=== PATIENT | male | born 1955 | race Caucasian/White ===

== ENCOUNTER → 2017-08-02 09:50 | Outpatient (CLI) | payer OTHER, SELFPAY ==
[2017-08-02 10:31] LABS: Hemoglobin A1c 9.6 % (4.2-6.3)
[2017-08-02 10:40] LABS: ALB/GLOB Ratio 0.8 RATIO (0.9-2.4); AST(SGOT) 20 U/L (15-37); Alanine Aminotransfer ALT/SGPT 24 U/L (16-61); Albumin, Serum 3.5 g/dL (3.2-5.0); Alkaline Phosphatase 209 U/L (45-117); Anion Gap 8 (5-15); BUN 37 mg/dL (7-18); BUN/Creat Ratio 27.4 RATIO (10-20); Calcium,Total 8.3 mg/dL (8.5-10.1); Chloride 104 mmol/L (98-107); Creatinine, Serum 1.35 mg/dL (0.70-1.30); EST Glomerular Filtration Rate 57 mL/min (>60); Est Glom Filt Rate - Afr Amer 69 mL/min (>60); Globulin 4.3 g/dL (2.2-4.2); Glucose 296 mg/dL (74-106); Potassium 4.5 mmol/L (3.5-5.1); Protein, Total 7.8 g/dL (6.4-8.2); Sodium Level 137 mmol/L (136-145); Thyroid Stim Hormone (TSH) 1.72 uIU/mL (0.358-3.74)
[2017-08-03 14:14] LABS: C-Peptide 6.2 ng/mL (1.1-4.4)
== END ==
PROVIDERS: Visit Provider Internal Medicine Endocrinology, Diabetes & Metabolism
DX: E11.65 Type 2 diabetes mellitus with hyperglycemia (principal)
CPT/HCPCS: 36415; 80053; 83036; 84443; 84681

== ENCOUNTER 2017-10-01 07:14 | Emergency (ER) | payer OTHER, SELFPAY ==
[2017-10-01 07:15] VITALS: BP 149/80; PULSE 99; RESP 15; TEMP 37.4; O2SAT 98; BMI 35.4
--- NOTE | 2017-10-01 07:37 | EKG12_ITS ---
Test Reason : WEAKNESS Blood Pressure : / mmHG Vent. Rate : 101 BPM Atrial Rate : 101 BPM P-R Int : 194 ms QRS Dur : 108 ms QT Int : 348 ms P-R-T Axes : 041 -01 033 degrees QTc Int : 451 ms Sinus tachycardia Otherwise normal ECG Confirmed by VANESSA CASILLAS, ROYAL ([id number]), editor map SRIRAM JALLOH ([id number]) on 10/05/2017 2:08:23 PM Referred By: ANTOLIN Confirmed By:ROYAL MENDEZ MD
--- NOTE | 2017-10-01 07:39 | ED.VISSUMM ---
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 He works in a warm environment. He noticed that he was drinking a lot of fluids but not sweating very much, and he was concerned that he was getting dehydrated. He felt a little bit weak and dizzy. He has some nasal congestion and it was causing him to feel short of breath. He went to the fire department this morning to be evaluated and his blood pressure was found to be 198/93. He has a history of stroke, coronary disease, diabetes, hypertension, hyperlipidemia, et al. He had similar symptoms in the past with dehydration and so he came to get his kidneys checked and for fluids. None of this feels like his prior [place] and he has not been having any stroke symptoms. He has no history of lung disease, PE, or aortic disease. Physical Examination: Blood pressure 149/80 and heart rate 99. Temperature 99.4. Otherwise vitals unremarkable. Patient is sitting comfortably and appears in no acute distress. Cooperative and appropriate. HEENT exam shows normal inspection. Lungs are clear. Heart regular. No edema noted. Calves soft and supple. Abdomen soft. Skin appears normal without diaphoresis or pallor. Test Results: EKG, labs, and chest x-ray pending. Emergency Department Course and Treatment: Patient may be slightly dry or dehydrated. He is also having some nasal congestion and may be coming down with something like a viral illness. He is not having any cardiac or stroke symptoms. Nothing to make me suggest PE, pneumothorax, pneumonia or, or other significant cardiovascular or pulmonary pathologies. He was treated with fluids while awaiting results. Will reassess. Patient continued to complain of shortness of breath. I spoke with him again about this. His shortness of breath is secondary to nasal congestion. He does not have shortness of breath when he breathes through his mouth. No exertional components. No chest pain. His workup was fairly unremarkable. His hemoglobin and platelets are 11.8 and 142 respectively, similar to previous. His BUN is 44, creatinine 1.63, and glucose 309. His creatinine has been as high as 5 in the past. His BUN has been as high as 56. Chest x-ray unremarkable. EKG unremarkable. Troponin normal. Patient received Afrin for his nasal congestion. He had further fluid resuscitation. He will be discharged to follow-up with his doctor as an outpatient. Call 911 for any chest pain, shortness of breath not related to nasal congestion, swelling, high fevers, or any other new or worsening issues. Treatment Plan: As above Disposition: Discharged Impression: 1. Dehydration 2. Nasal congestion This note was generated with [employer] dictation software. It may contain incorrect words, spelling, and punctuation that were not noted in review of the chart prior to signing ED Disposition - Plan for ED Patient: Chief Complaint: Weakness Referrals: Gene Louis MD [Primary Care Provider] -
[2017-10-01] MEDS: 0.9% Normal Saline 1,000 ML 1000 ML IV ×2 (07:43→08:32)
--- NOTE | 2017-10-01 07:43 | RAD_ITS ---
STUDY: X-RAY CHEST REASON FOR EXAM: Male, 62 years old. Dyspnea. Weakness. TECHNIQUE: Single AP portable view of the chest. COMPARISON: Comparison is made with prior study dated July 14, 2016. FINDINGS: EKG electrodes are seen. The lungs are clear and expanded. There is no demonstrated pleural abnormality. Normal size heart. Normal mediastinum and lydia. Normal visualized pulmonary arteries. There is atherosclerotic tortuosity of the aortic arch and descending thoracic aorta. There are diffuse degenerative changes of the visualized thoracic spine. Normal visualized ribs, clavicles, and shoulders. There is no demonstrated abnormality of the visualized soft tissue structures of the upper abdomen. RAD/Chest 1 View (Portable) IMPRESSION: No acute abnormality is present. Electronically Signed: Rigo Liriano MD at 8:06 EDT Tel [phone], Service support ,
--- NOTE | 2017-10-01 07:43 | ED.DCSUM_ITS ---
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 He works in a warm environment. He noticed that he was drinking a lot of fluids but not sweating very much, and he was concerned that he was getting dehydrated. He felt a little bit weak and dizzy. He has some nasal congestion and it was causing him to feel short of breath. He went to the fire department this morning to be evaluated and his blood pressure was found to be 198/93. He has a history of stroke, coronary disease, diabetes, hypertension, hyperlipidemia, et al. He had similar symptoms in the past with dehydration and so he came to get his kidneys checked and for fluids. None of this feels like his prior [place] and he has not been having any stroke symptoms. He has no history of lung disease, PE, or aortic disease. Physical Examination: Blood pressure 149/80 and heart rate 99. Temperature 99.4. Otherwise vitals unremarkable. Patient is sitting comfortably and appears in no acute distress. Cooperative and appropriate. HEENT exam shows normal inspection. Lungs are clear. Heart regular. No edema noted. Calves soft and supple. Abdomen soft. Skin appears normal without diaphoresis or pallor. Test Results: EKG, labs, and chest x-ray pending. Emergency Department Course and Treatment: Patient may be slightly dry or dehydrated. He is also having some nasal congestion and may be coming down with something like a viral illness. He is not having any cardiac or stroke symptoms. Nothing to make me suggest PE, pneumothorax, pneumonia or, or other significant cardiovascular or pulmonary pathologies. He was treated with fluids while awaiting results. Will reassess. Patient continued to complain of shortness of breath. I spoke with him again about this. His shortness of breath is secondary to nasal congestion. He does not have shortness of breath when he breathes through his mouth. No exertional components. No chest pain. His workup was fairly unremarkable. His hemoglobin and platelets are 11.8 and 142 respectively, similar to previous. His BUN is 44, creatinine 1.63, and glucose 309. His creatinine has been as high as 5 in the past. His BUN has been as high as 56. Chest x-ray unremarkable. EKG unremarkable. Troponin normal. Patient received Afrin for his nasal congestion. He had further fluid resuscitation. He will be discharged to follow-up with his doctor as an outpatient. Call 911 for any chest pain, shortness of breath not related to nasal congestion, swelling, high fevers, or any other new or worsening issues. Treatment Plan: As above Disposition: Discharged Impression: 1. Dehydration 2. Nasal congestion This note was generated with [employer] dictation software. It may contain incorrect words, spelling, and punctuation that were not noted in review of the chart prior to signing ED Disposition - Plan for ED Patient: Chief Complaint: Weakness Referrals: Gene Louis MD [Primary Care Provider] -
[2017-10-01 07:47] LABS: Absolute Lymphocyte Count 0.73 X10^3/ul (0.83-4.51); Absolute Neutrophil Count 6.5 X10^3/uL (2.0-7.7); Basophil# 0.03 X10^3/uL; Basophil% 0.4 % (0-1); Eosinophil# 0.12 X10^3/uL; Eosinophils% 1.5 % (0-5); Hematocrit 34.3 % (40-54); Hemoglobin 11.8 g/dl (13.0-16.5); Lymphocyte # 0.73 X10^3/ul (4.0); Mean Corp Hgb Conc 34.4 g/gl (32-36); Mean Corpuscular Volume 78.5 fL (80-94); Mean Platelet Vol. 11.4 fl (6.2-12.0); Monocyte# 0.69 X10^3/uL; Monocyte% 8.5 % (0-10); Neutrophil # 6.51 X10^3/uL (2.7-7.7); Neutrophil % 80.4 % (47-70); Platelet Count 142 K/mm3 (150-450); RBC Distribution Width CV 13.9 % (11.6-14.6); RBC Distribution Width SD 38.6 fl (35.1-43.9); Red Blood Count 4.37 M/mm3 (4.6-6.2); White Blood Count 8.1 K/mm3 (4.4-11.0)
[2017-10-01 07:49] LABS: POSITIVE COUNT NO; POSITIVE DIFFERENTIAL NO; POSITIVE MORPHOLOGY NO
[2017-10-01 07:58] LABS: Anion Gap 9 (5-15); BUN 44 mg/dL (7-18); Calcium,Total 8.6 mg/dL (8.5-10.1); Chloride 105 mmol/L (98-107); Creatinine, Serum 1.63 mg/dL (0.70-1.30); EST Glomerular Filtration Rate 46 mL/min (>60); Est Glom Filt Rate - Afr Amer 55 mL/min (>60); Estimated Creatinine Clearance 45.46 ml/min; Glucose 309 mg/dL (74-106); Potassium 4.5 mmol/L (3.5-5.1); Sodium Level 135 mmol/L (136-145)
--- NOTE | 2017-10-01 08:29 | ED.DEP ---
ED Disposition - Plan for ED Patient: Chief Complaint: Weakness Instructions: ED Dehydration Referrals: Gene Louis MD [Primary Care Provider] - As soon as possible
[2017-10-01] MEDS: Oxymetazoline 0.05% 1 SPRAY SPRAY.BTL NASAL (08:32)
[2017-10-01 09:23] VITALS: BP 150/78; PULSE 98; RESP 17; O2SAT 98
== END 2017-10-01 09:24 | disposition home or self-care (01) ==
PROVIDERS: Emergency Provider Emergency Medicine; Family Provider Family Medicine; PCP Family Medicine
DX: E86.0 Dehydration (principal); R09.81 Nasal congestion; E11.9 Type 2 diabetes mellitus without complications; I25.10 Atherosclerotic heart disease of native coronary artery without angina pectoris; I10 Essential (primary) hypertension; E78.5 Hyperlipidemia, unspecified; I25.2 Old myocardial infarction; K21.9 Gastro-esophageal reflux disease without esophagitis; D61.818 Other pancytopenia; Z86.73 Personal history of transient ischemic attack (TIA), and cerebral infarction without residual deficits; Z87.891 Personal history of nicotine dependence; Z79.82 Long term (current) use of aspirin; Z79.4 Long term (current) use of insulin; Z79.899 Other long term (current) drug therapy
CPT/HCPCS: 71045; 80048; 84484; 85025; 93005; 96360; 96361; 99285; J7030

== ENCOUNTER → 2018-04-22 13:48 | Outpatient (CLI) | payer OTHER, SELFPAY ==
--- NOTE | 2018-04-22 13:51 | RAD_ITS ---
STUDY: X-RAY - LEFT KNEE REASON FOR EXAM: Male, 62 years old. Left knee pain following a fall. TECHNIQUE: 3 view(s) of the knee. COMPARISON: None. FINDINGS: Bony spur along the lateral femoral condyle. Deformity of the lateral tibial plateau most likely secondary to prior injury. Several small well-defined lucencies are seen in the proximal tibia most likely secondary to prior screw fixation. Normal proximal tibiofibular articulation. There is moderate degenerative arthrosis of the medial femorotibial compartment with moderate joint space narrowing. There is moderate degenerative arthrosis of the lateral femorotibial compartment with moderate joint space narrowing. There is severe degenerative arthrosis of the patellofemoral articulation. Small joint effusion. Vascular calcification. 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 RAD/Knee 3 Views IMPRESSION: Degenerative arthrosis. Small joint effusion. Electronically Signed: Rigo Liriano MD at 14:19 EST Tel [phone], Service support ,
--- NOTE | 2018-04-22 13:51 | RAD_ITS ---
STUDY: X-RAY - LEFT TIBIA AND FIBULA REASON FOR EXAM: Male, 62 years old. Leg pain following a fall. TECHNIQUE: 2 view(s) of the tibia and fibula were obtained. COMPARISON: None. FINDINGS: Findings suggest probable old injury along the lateral tibial plateau. Normal visualized fibula. There is non-specific soft tissue swelling. RAD/Tibia & Fibula 2 Views IMPRESSION: Nonspecific soft tissue swelling. Electronically Signed: Rigo Liriano MD at 14:20 EST Tel [phone], Service support ,
== END ==
PROVIDERS: Family Provider Family Medicine; PCP Family Medicine; Referring Provider Physician Assistant; Visit Provider Physician Assistant
DX: S80.02XA Contusion of left knee, initial encounter (principal); S80.12XA Contusion of left lower leg, initial encounter
CPT/HCPCS: 73562; 73590

== ENCOUNTER → 2018-04-24 09:54 | Outpatient (CLI) | payer OTHER, SELFPAY ==
[2018-04-24 07:56] VITALS: BMI 34.9
[2018-04-24 10:04] LABS: AST(SGOT) 18 U/L (15-37); Alanine Aminotransfer ALT/SGPT 29 U/L (16-61); Albumin, Serum 3.2 g/dL (3.2-5.0); Alkaline Phosphatase 246 U/L (45-117); Bilirubin, Direct 0.15 mg/dL (0.00-0.30); Cholesterol 104 mg/dL (200); Globulin 4.4 g/dL (2.2-4.2); High Density Lipoprotein 31 mg/dL; Protein, Total 7.6 g/dL (6.4-8.2); Triglycerides 208 mg/dL; Very Low Density Lipoprotein 42 mg/dL (5-40)
== END ==
PROVIDERS: Family Provider Family Medicine; PCP Family Medicine; Referring Provider Internal Medicine Cardiovascular Disease; Visit Provider Internal Medicine Cardiovascular Disease
DX: E78.00 Pure hypercholesterolemia, unspecified (principal)
CPT/HCPCS: 36415; 80061; 80076

== ENCOUNTER → 2018-05-24 06:24 | Outpatient (CLI) | payer OTHER, SELFPAY ==
[2018-05-15 10:06] VITALS: BMI 34.9
--- NOTE | 2018-05-24 06:27 | MRI_ITS ---
STUDY: MRI LEFT KNEE REASON FOR EXAM: Posterior knee pain, fall 2 months ago. TECHNIQUE: Standardized fat and water weighted pulse sequences were obtained in all 3 orthogonal planes. COMPARISON: Radiographs 04/22/2018. FINDINGS: There is a complex tear at the root of the posterior horn of the medial meniscus (proton-density sagittal images 15, 16; T2 coronal images 8, 9). There is arthrosis of the medial femorotibial compartment with marginal osteophytes of the medial femoral condyle, partial-thickness chondral loss of the medial femoral condyle (T2 sagittal image 6) and slight subchondral cystic change. There is a small ossification in the medial collateral ligament at the femoral origin (proton-density coronal image 16) from remote injury. Normal distal semimembranosus, gracilis and semitendinosus tendons. There is tear/degeneration of the anterior horn and anterior body of the lateral meniscus (proton-density sagittal images 28-35; proton density coronal images 14, 15). There is arthrosis of the lateral femorotibial compartment with marginal osteophytes and partial-thickness chondral loss (T2 sagittal image 18). There is chronic healed fracture deformity of the lateral tibial plateau with micrometallic artifact from previous hardware. There is arthrosis of the proximal tibiofibular articulation with chondral thinning (T2 coronal images 6-8). Normal lateral collateral (fibular) ligament. Normal popliteus tendon. Normal biceps femoris tendon. Normal anterior cruciate ligament (ACL). Normal posterior cruciate ligament (PCL). Normal congruent patellofemoral articulation. There is arthrosis of the patellofemoral compartment with marginal osteophytes, chondral thinning (T2 sagittal image 15) and subchondral cystic change of the lateral patellar facet. Normal medial and lateral patellar retinaculum. Normal visualized quadriceps tendon. Normal patellar tendon. Normal Hoffa's fat pad. There is a very small joint effusion. There are intra-articular bodies in the suprapatellar recess (T2 coronal images 24, 25), the largest measuring 0.8 cm in length. There is a small intra-articular body at the superior aspect of the posterior horn of the medial meniscus near the root (proton-density sagittal image 15). There is a small intra-articular body at the superior aspect of the posterior horn of the lateral meniscus (proton-density sagittal image 28). There is a thin medial patellar plica. There is mild edema in the subcutis adipose space. There is a small cyst in the lateral femoral condyle (T2 axial image 13). MRI/Lower Ext Joint Only (Routine) IMPRESSION: Medial meniscal tear. Lateral meniscal tear/degeneration. Tricompartmental arthrosis. Chronic healed fracture deformity of the lateral tibial plateau. Multiple intra-articular bodies. Small joint effusion. Electronically Signed: Edwin London MD at 9:16 EST Tel , Service support ,
== END ==
PROVIDERS: Family Provider Family Medicine; PCP Family Medicine; Referring Provider Physician Assistant; Visit Provider Physician Assistant
DX: S80.02XA Contusion of left knee, initial encounter (principal)
CPT/HCPCS: 73721

== ENCOUNTER 2018-07-09 08:11 | Day surgery (SDC) | payer OTHER, SELFPAY ==
[2018-07-04 08:22] VITALS: BMI 34.9
[2018-07-09] VITALS (7 sets, daily range): BP systolic 111–163; BP diastolic 72–86; PULSE 69–79; RESP 16–18; TEMP 36.5–36.9; O2SAT 96–100; BMI 35.6
[2018-07-09 09:11] LABS: Bedside Glucose 192 mg/dL (70-110)
[2018-07-09] MEDS: Cefazolin 2 GM in 0.9% Normal Saline 100 ML IV (09:57)
[2018-07-09] MEDS: Bupivacaine 0.5% PF 10 ML VIAL (10:52)
[2018-07-09] MEDS: Morphine 4 MG/ML Syringe (10:53)
[2018-07-09] MEDS: Bupiv/Epi 0.5% Mpf 30 ML Vial (10:53)
[2018-07-09 11:17] LABS: Bedside Glucose 188 mg/dL (70-110)
--- NOTE | 2018-07-09 11:17 | PCM.DC.ORTHO ---
Discharge Diet: No Restrictions Discharge Activity: Return to Normal Activity May shower in (days): 2 Keep extremity elevated above heart level: Operative Extremity Additional Activity Instructions:: Ice and elevate above the heart next 72 hours. Leave dressing on 48 hours then may remove and shower but no baths or pools or submersion for 3 weeks. Shower daily at this point with warm soapy water and pat dry and use Band-Aids as needed. Encourage full range of motion and weightbearing as tolerated. Avoid strenuous activity. Call your doctor if you observe: Fever of 101 or Higher, Shortness of breath, Chest pain Suture Line Care: Avoid Pulling/Pushing Allergies/Adverse Reactions: Allergies escitalopram [From Lexapro] Allergy (Verified 07/08/18 12:32) Unknown sertraline [From Zoloft] Allergy (Verified 07/08/18 12:32) Unknown lisinopril Adverse Reaction (Severe, Verified 07/08/18 12:07) Cough Medications to take at Discharge Nitroglycerin [Nitrostat] 0.4 mg SUBLINGUAL Q5M PRN 06/30/15 Insulin Degludec [Tresiba Flextouch U-200] 48 unit SQ DAILY 02/20/17 Insulin Lispro [Humalog KwikPen] 5 - 15 unit SQ TID PRN PRN 02/20/17 clopidogrel 75 mg tablet 75 mg PO DAILY #90 tab 07/18/17 metformin 500 mg tablet 1,000 mg PO DAILY tab 09/04/17 Bupropion HCl [Bupropion Xl] 150 mg PO DAILY 10/01/17 losartan 50 mg tablet 50 mg PO DAILY 04/24/18 Atorvastatin Calcium [Lipitor] 80 mg PO QHS 07/08/18 Carvedilol 12.5 mg PO BID 07/08/18 Pantoprazole Sodium [Protonix] 40 mg PO QDAY 07/08/18 Aspirin E.C. [Ecotrin] 81 mg PO DAILY #0 07/09/18 Hydrocodone/Acetaminophen [[place] 5-325 Tablet] 1 - 2 each PO Q4H PRN PRN 7 Days #50 tablet 07/09/18 The following prescriptions were given: Hydrocodone/Acetaminophen [[place] 5-325 Tablet] 1 - 2 each PO Q4H PRN PRN 7 Days #50 tablet PRN Reason: Pain Primary Care Physician: Gene Louis MD [Primary Care Provider] - Test Results: Test results from this visit will be discussed in further detail at your follow-up appointment, if applicable.
--- NOTE | 2018-07-09 11:21 | DCINST_ITS ---
Discharge Diet: No Restrictions Discharge Activity: Return to Normal Activity May shower in (days): 2 Keep extremity elevated above heart level: Operative Extremity Additional Activity Instructions:: Ice and elevate above the heart next 72 hours. Leave dressing on 48 hours then may remove and shower but no baths or pools or submersion for 3 weeks. Shower daily at this point with warm soapy water and pat dry and use Band-Aids as needed. Encourage full range of motion and weightbearing as tolerated. Avoid strenuous activity. Call your doctor if you observe: Fever of 101 or Higher, Shortness of breath, Chest pain Suture Line Care: Avoid Pulling/Pushing Allergies/Adverse Reactions: Allergies escitalopram [From Lexapro] Allergy (Verified 07/08/18 12:32) Unknown sertraline [From Zoloft] Allergy (Verified 07/08/18 12:32) Unknown lisinopril Adverse Reaction (Severe, Verified 07/08/18 12:07) Cough Medications to take at Discharge Nitroglycerin [Nitrostat] 0.4 mg SUBLINGUAL Q5M PRN 06/30/15 Insulin Degludec [Tresiba Flextouch U-200] 48 unit SQ DAILY 02/20/17 Insulin Lispro [Humalog KwikPen] 5 - 15 unit SQ TID PRN PRN 02/20/17 clopidogrel 75 mg tablet 75 mg PO DAILY #90 tab 07/18/17 metformin 500 mg tablet 1,000 mg PO DAILY tab 09/04/17 Bupropion HCl [Bupropion Xl] 150 mg PO DAILY 10/01/17 losartan 50 mg tablet 50 mg PO DAILY 04/24/18 Atorvastatin Calcium [Lipitor] 80 mg PO QHS 07/08/18 Carvedilol 12.5 mg PO BID 07/08/18 Pantoprazole Sodium [Protonix] 40 mg PO QDAY 07/08/18 Aspirin E.C. [Ecotrin] 81 mg PO DAILY #0 07/09/18 Hydrocodone/Acetaminophen [Goldvein 5-325 Tablet] 1 - 2 each PO Q4H PRN PRN 7 Days #50 tablet 07/09/18 The following prescriptions were given: Hydrocodone/Acetaminophen [Goldvein 5-325 Tablet] 1 - 2 each PO Q4H PRN PRN 7 Days #50 tablet PRN Reason: Pain Primary Care Physician: Gene Louis MD [Primary Care Provider] - Test Results: Test results from this visit will be discussed in further detail at your follow- up appointment, if applicable.
--- NOTE | 2018-07-09 11:46 | OP.PCM_ITS ---
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, patellofemoral and lateral compartment with a reas of grade 4, loose body, arthrofibrosis with thickened capsular and synovial tissue and adhesions Procedure: [Left knee arthroscopic partial medial and lateral meniscectomy ACL debridement removal of loose body chondroplasty tricompartment tricompartmental synovectomy lysis of adhesions and manipulation under anesthesia Anesthesia: General Estimated blood loss: 5 mL Tourniquet time: 53 minutes 300 mmHg Indication for procedure: This is a 62-year-old male patient who has had a prior large open surgical procedure in the year past to his knee he has had continued mechanical knee pain and stiffness and has failed conservative treatment he did have an MRI indicating medial and lateral meniscal tear and DJD and clinically he had a flexion contracture of about 25 degrees and unable to bend past 90. We did discuss arthroscopic surgery to attempt to alleviate some of his symptoms however significant risk of continued pain and stiffness due to the duration of contracture and level of arthritis, and only risk benefits and alternatives of the procedure were reviewed including risk of bleeding infection nerve artery tissue damage need for further surgery continued pain and expected postoperative course. Procedure: The patient was met in the preoperative holding area. The operative extremity was identified by both patient and physician and family and marked. Patient was brought back to the operating room on a wheeled cart and transferred to the operating table in the supine position. Anesthesia was started. A well-padded tourniquet was placed on the operative extremity. A lower extremity leg hearn was secured to the operative extremity. The contralateral extremity was well-padded and the end of the bed was flexed to 90 degrees. The patient was prepped and draped in the usual sterile fashion. A timeout was called to ensure the proper patient, procedure, and extremity were being contemplated. 0.5% Marcaine with epinephrine was injected into the planned incisional areas under the skin only. An Esmarch was used to exsanguinate the extremity and the tourniquet was inflated. An 11 blade scalpel was used to make a stab incision in the anterior lateral portal. The arthroscope was inserted into the intercondylar notch and inflow and outflow tubes were attached. Arthroscopic visualization began. The medial compartment was entered. An 18-gauge spinal needle was used to establish the placement for anterior medial portal. An 11 blade scalpel was used to make a stab incision. Blunt probe was inserted followed by a meniscal probe. There was significant capsular hypertrophy and synovial synovitis that required tricompartmental synovectomy for visualization with thickened bands rubbing on the medial and lateral condyles the ACL was nearly completely torn with scar tissue within the intercondylar notch this was debrided with a shaver. The lateral compartment was entered there was noted to be degenerative tearing in the posterior horn body and anterior horn of the lateral meniscus which was debrided with a shaver there was a loose body which was removed with a grasper there was loose cartilage on the medial and lateral femoral condyles and a chondroplasty was performed of the loose flaps with the use of arthroscopic biting instruments and maggie and ArthroCare wand a partial lateral meniscectomy was performed. The arthroscope was switched to the medial portal to complete the procedure. The medial and lateral gutters were inspected and were free of loose bodies. The patellofemoral joint was inspected and had significant grade III and IV chondromalacia. There was good patellar tracking. The knee was thoroughly irrigated and drained. Manipulation of the knee was then performed with a slight increase in his arc of motion however c omplete range of motion was not achieved, an intra-articular injection with 5 cc 0.5% Marcaine plain 4 mg of morphine was injected intra-articularly. The arthroscope was removed the portals were closed with 3-0 nylon arthroscopic stitches. Followed by Xeroform 4 x 4's ABDs web roll and an Eb wrap. The tourniquet was let down and the drapes were removed. All counts were correct. The patient was brought back to the PACU in stable condition. Type of Anesthesia:: General
[2018-07-09] MEDS: HYDROcodone Bitartrate/Apap 5/325 Tablet PO (12:12)
== END 2018-07-09 12:45 | disposition home or self-care (01) ==
LOC: SDC 08:12 → AC 08:13
PROVIDERS: Family Provider Family Medicine; PCP Family Medicine; Referring Provider Orthopaedic Surgery; Visit Provider Orthopaedic Surgery
PROC: (CPT 29870; principal; 2018-07-09 09:45)
DX: S83.282A Other tear of lateral meniscus, current injury, left knee, initial encounter (principal); S83.232A Complex tear of medial meniscus, current injury, left knee, initial encounter; M17.12 Unilateral primary osteoarthritis, left knee; M94.262 Chondromalacia, left knee; E66.9 Obesity, unspecified; I25.2 Old myocardial infarction; I10 Essential (primary) hypertension; I25.10 Atherosclerotic heart disease of native coronary artery without angina pectoris; E78.5 Hyperlipidemia, unspecified; K21.9 Gastro-esophageal reflux disease without esophagitis; G47.30 Sleep apnea, unspecified; E11.9 Type 2 diabetes mellitus without complications; Z87.891 Personal history of nicotine dependence; Z68.34 Body mass index [BMI] 34.0-34.9, adult; Z95.5 Presence of coronary angioplasty implant and graft; Z86.73 Personal history of transient ischemic attack (TIA), and cerebral infarction without residual deficits; Z79.4 Long term (current) use of insulin; Z79.82 Long term (current) use of aspirin; Z79.899 Other long term (current) drug therapy; X58.XXXA Exposure to other specified factors, initial encounter; Y93.89 Activity, other specified; Y92.89 Other specified places as the place of occurrence of the external cause; Y99.8 Other external cause status
CPT/HCPCS: 01400; 29880; 29884; G0289; 82962; J7120; J2405

== ENCOUNTER 2018-07-18 09:26 | Emergency (ER) | payer OTHER, SELFPAY ==
[2018-07-09 08:52] VITALS: BMI 35.6
[2018-07-18 09:27] VITALS: BP 175/88; PULSE 91; RESP 18; TEMP 36.6; O2SAT 96; BMI 34.2
--- NOTE | 2018-07-18 09:41 | VDLE_ITS ---
Reason For Study: swelling RIGHT LEFT CFV is compressible, spontaneous, phasic, GSV is normal. competent and demonstrates normal CFV is compressible, spontaneous, phasic, augmentation. competent, and demonstrates normal Procedure augmentation. Exam performed portable in ED. FV is compressible, spontaneous, phasic, The exam was diagnostic. competent and demonstrates normal A preliminary report was called and/or faxed augmentation. to Dr. Ramos. POP V is compressible, spontaneous, phasic, competent and demonstrates normal augmentation. T/P Trunk is compressible. PTV is compressible. LT PerV is compressible. Soleus V is dilated and noncompressible. Interpretation Summary Acute deep vein thrombosis is noted in the left soleus vein. The remainder of the left lower extremity deep venous system is patent and compressible. Valvular competence appears intact within the proximal deep venous system on the left . The left greater saphenous vein appears patent and compressible segmentally. Ordering Physician: Flash Ramos Performed By: Stas Rodríguez RVT
[2018-07-18] MEDS: HYDROcodone Bitartrate/Apap 5/325 Tablet PO (09:48)
--- NOTE | 2018-07-18 09:51 | ED.DCSUM_ITS ---
- ER Visit Summary Date of Service: 07/18/18 Chief Complaint: Left calf pain History of Present Illness: The patient is a 62 M who was referred to the ED for left calf pain. Patient is postop day 9 from a left knee scope for meniscus repair by Dr. Perez. Patient's knee pain has been improving since the surgery, but he is having increasing left calf pain associated with swelling. Denies any history of DVT or PE. He denies any history of chest pain, shortness of breath, cough, hemoptysis, or fever. Physical Examination: Afebrile and vital signs unremarkable except for hypertension. He does have some edema noted to his left calf and postoperative sites are noted to be clean, dry, and intact. Sutures are in place. He has some diffuse pain on palpation to his left calf. Good range of motion of his knee. Good strength and sensation distally. Strong pulses. Test Results: Ultrasound pending. Emergency Department Course and Treatment: Patient treated with [place] while awaiting ultrasound results. Ultrasound showed a soleus DVT. Patient is having symptoms and would like treatment. His has-bled score is a 2. Risks were discussed. I also spoke with his PCP, and he recommended treatment with Eliquis. Prior to initiating therapy, I did check labs. Hemoglobin 12.4, glucose 471, BUN stable at 28 and creatinine stable at 1.47. Coags were normal. Patient says that he has been drinking a lot of cough medicine and was concerned this was raising his glucose. He was treated with a fluid bolus and lispro. On reevaluation, his glucose is 295. Patient will stay hydrated and monitor his sugars at home. I also notify Dr. Woods who had no further recommendations. Treatment Plan: Eliquis 10 mg twice a day for 7 days and then 5 mg twice a day after that. Monitor blood sugars and stay hydrated. Follow-up with your primary care doctor as well as your orthopedic doctor. Return right away for bleeding or injury. Disposition: Discharge Impression: 1. DVT left leg 2. Hyperglycemia This note was generated with [employer] software. It may contain incorrect words, spelling, and punctuation that were not noted in review of the chart prior to signing ED Disposition - Plan for ED Patient: Referrals: Gene Louis MD [Primary Care Provider] -
[2018-07-18 12:00] LABS: Absolute Lymphocyte Count 1.13 X10^3/ul (0.83-4.51); Absolute Neutrophil Count 4.3 X10^3/uL (2.0-7.7); Basophil# 0.04 X10^3/uL; Basophil% 0.6 % (0-1); Eosinophil# 0.19 X10^3/uL; Hematocrit 37.1 % (40-54); Hemoglobin 12.4 g/dl (13.0-16.5); Lymphocyte # 1.13 X10^3/ul (4.0); Mean Corp Hgb Conc 33.4 g/gl (32-36); Mean Corpuscular Hgb 26.6 pg (27.0-32.0); Mean Corpuscular Volume 79.4 fL (80-94); Mean Platelet Vol. 10.7 fl (6.2-12.0); Monocyte# 0.65 X10^3/uL; Monocyte% 10.4 % (0-10); Neutrophil # 4.25 X10^3/uL (2.7-7.7); Neutrophil % 67.8 % (47-70); POSITIVE COUNT NO; POSITIVE DIFFERENTIAL NO; POSITIVE MORPHOLOGY NO; Platelet Count 165 K/mm3 (150-450); RBC Distribution Width CV 13.5 % (11.6-14.6); RBC Distribution Width SD 37.6 fl (35.1-43.9); Red Blood Count 4.67 M/mm3 (4.6-6.2); White Blood Count 6.3 K/mm3 (4.4-11.0)
[2018-07-18 12:15] LABS: Anion Gap 7 (5-15); BUN 28 mg/dL (7-18); Chloride 103 mmol/L (98-107); Creatinine, Serum 1.47 mg/dL (0.70-1.30); EST Glomerular Filtration Rate 51 mL/min (>60); Est Glom Filt Rate - Afr Amer 62 mL/min (>60); Glucose 471 mg/dL (74-106); Potassium 5.1 mmol/L (3.5-5.1); Sodium Level 135 mmol/L (136-145)
[2018-07-18 12:20] LABS: International Normalized Ratio 1.1; Prothrombin Time (Protime)PT. 13.6 SECONDS (11.7-14.9)
[2018-07-18 12:21] LABS: Partial Thromboplast Time 27.4 Seconds (24.1-36.2)
[2018-07-18] MEDS: 0.9% Normal Saline 1,000 ML 999 ML IV ×2 (13:07)
[2018-07-18] MEDS: Insulin Lispro 100 UNIT/ML INSULN.PEN 10 UNIT SC (13:36)
--- NOTE | 2018-07-18 15:19 | ED.DEP ---
ED Disposition - Plan for ED Patient: Instructions: Treating Deep Vein Thrombosis Prescriptions: Apixaban [Eliquis] 10 mg PO BID #74 tab Referrals: Gene Louis MD [Primary Care Provider] -
[2018-07-18 15:20] LABS: Bedside Glucose 295 mg/dL (70-110)
[2018-07-18 15:32] VITALS: BP 182/96; PULSE 71; RESP 16; O2SAT 96
== END 2018-07-18 15:38 | disposition home or self-care (01) ==
LOC: ED 10:52
PROVIDERS: Emergency Provider Emergency Medicine; Family Provider Family Medicine; PCP Family Medicine
DX: I82.4Z2 Acute embolism and thrombosis of unspecified deep veins of left distal lower extremity (principal); Z98.890 Other specified postprocedural states; R73.9 Hyperglycemia, unspecified; I25.2 Old myocardial infarction; I10 Essential (primary) hypertension; E78.00 Pure hypercholesterolemia, unspecified; Z79.82 Long term (current) use of aspirin; Z79.4 Long term (current) use of insulin; Z79.899 Other long term (current) drug therapy
CPT/HCPCS: 80048; 82962; 85025; 85610; 85730; 93971; 96360; 96361; 99282; J7030; A4216

== ENCOUNTER → 2018-10-10 | Outpatient (CLI) | payer OTHER, SELFPAY ==
[2018-09-16 08:02] VITALS: BMI 34.2
--- NOTE | 2018-10-10 13:53 | VDLE_ITS ---
Reason For Study: DVT Procedure LEFT Exam performed in department. GSV is normal. A preliminary report was called and/or faxed CFV is compressible, spontaneous, phasic, to [place]. competent, and demonstrates normal augmentation. FV is compressible, spontaneous, phasic, competent and demonstrates normal augmentation. POP V is compressible, spontaneous, phasic, competent and demonstrates normal augmentation. T/P Trunk is compressible. PTV is compressible. LT PerV is compressible. Lt Soleus vein is compressible. Interpretation Summary There is no evidence of left lower extremity deep vein thrombosis. Resolved left soleus veins DVT since 07/18/18 Ordering Physician: Joe Perez Referring Physician: Gene Louis M.D. Performed By: Molly Mora RVT
== END | disposition home or self-care (01) ==
PROVIDERS: Family Provider Family Medicine; PCP Family Medicine; Referring Provider Orthopaedic Surgery; Visit Provider Orthopaedic Surgery
DX: G89.18 Other acute postprocedural pain (principal)
CPT/HCPCS: 93971

== ENCOUNTER 2018-10-11 16:30 | Outpatient (RCR) | payer OTHER, SELFPAY ==
--- NOTE | 2018-07-30 08:20 | HP.PTEVAL_ITS ---
Patient's Visit Information BRI HERNANDEZ is a 62 year old M referred to Physical Therapy by Joe Perez DO with a diagnosis of L partial menisectomy, L knee DJD and L knee arthofibrosis. Date of Evaluation: 07/30/18 Physical Therapist: Marek Mcknight DPT - Visit Plan Frequency: 2-3x /Week Duration: 4-6 Weeks Plan: Start with ROM of L knee focus on TKE initially. Add in bike for ROM (no resistance). Progress quad activation and gait control as tolerated. May use ice, but no vaso due to DVT. - Subjective Findings: Pt. is here today for his initial evaluation with diagnosis of L partial menisectomy, L knee DJD and L knee arthofibrosis. Pt. is S/P surgery on 07/09. Postoperative diagnosis: Medial and lateral meniscal tear ACL tear grade III chondromalacia medial compartment, patellofemoral and lateral compartment with areas of grade 4, loose body, arthrofibrosis with thickened capsular and synovial tissue and adhesions. He did have a DVT in his L calf noted with ER visit on 07/18. Pt. reports taking blood thinners since. Pt. arrives today without AD, but presents with antalgic gait pattern. 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 Pt. is hopeful to get back to work with out increase in L knee pain. Pt. reports sleeping without much issue. Pt. does report increased pain with walking and increased calf pain with standing/walking. Pt. has been icing as instructed and slight knee ROM exercises. - Pain L knee Pain Intensity (Out of 10): 2 Pain Intensity Range: 1, 4 - Objective POSTURE: Pt. has increased R lateral wt shift in stance. Pt. lacks TKE on LLE. Pt. is able to stand without AD. PALPATION: Pt. has increased edema at L knee and increased cafl edema, 1+ pitting. Pt. continues to have shinny skin with his L calf, but no redness, and no pain with chuck's testing. NEURO: Pt. has normal sensation throughout bilateral LEs. Pt. has 2+ DTR of bilateral LEs. Pt. is able rise on heels and toes. ROM: R knee- 0-0-128deg. L knee- 0-8-89ddeg. Pt. has tight Hs bilaterally. MMT: RLE 4+/5 throughout. LLE: SLR 10- slguht quad lag, 4/5 hip abd, 4/5 knee flexion. GAIT: Pt. has decreased TKE during stance phase. Pt. has decreased knee flexion during swing phase as well. Pt. has increased knee flexion during initial contact. STAIRS: Step to pattern with 2 HR compelted. - Goals Goal 1:: Pt. to be I with HEP. Goal Time Frame: 4-6 Weeks Goal 2:: Pt. to to have increased L knee ROM to 0-0-120deg. Goal Time Frame: 4-6 Weeks Goal 3:: Pt. to have increased LLE strength by 1/2 grade throughout effected musculature. Goal Time Frame: 4-6 Weeks Goal 4:: Pt. ambulate with normal gait pattern without increase in symptoms for unlimited distances. Goal Time Frame: 4-6 Weeks Goal 5:: Pt. to resume all work activities without limitations. Goal Time Frame: 4-6 Weeks Goal 6:: Pt. to sleep throughout the night without increase in symptoms. Goal Time Frame: 4-6 Weeks - Rehabilitation Potential Physical Therapy Diagnosis: L partial menisectomy, L knee DJD and L knee arthofibrosis with subsequet hypombility, weakness and difficulty with gait. Rehabilitation Potential: Good - Anticipated Interventions Patient/Client Instruction: Educate patient on: Condition, Plan of Care, Risk Factors, Benefits of Fitness Program For the Purpose of:: To foster healthy habits, To improve decision making, To facilitate caregiver knowledge, To improve self management, To prevent re- injury, To improve ability to perform tasks related to life management, To improve tolerance to ADL's Therapeutic Exercise to Include: Strength training, Power training, Endurance training, Balance training, Body mechanics, Postural training, Flexibilty training, Gait and locomotor training, Passive ROM, Active ROM For the Purpose of:: To decrease pain, To decrease swelling/inflammation, To increase ROM, To improve nutrient delivery to tissue, To increase oxygenation perfusion, To improve muscle performance and motor function, To improve ability to perform ADL's, To increase tolerance to activity/condition/position, To improve performance and independence with ADL's, To improve gait and locomotor functions, To improve health of tissue, To decrease soft tissue restriction, To increase flexibility/ROM, To improve balance, To improve safety with gait, To assume or resume ADL's Manual Therapy Techniques to Include: Mobilization, Passive ROM, Soft tissue mobilization For the Purpose of:: To decrease pain, To decrease swelling/inflammation, To increase ROM, To improve nutrient delivery to tissue, To increase oxygenation perfusion, To improve muscle performance and motor function Cryotherapy (ice pack, ice massage): Yes For the Purpose of:: To decrease pain, To decrease swelling/inflammation, To increase ROM, To improve nutrient delivery to tissue, To increase oxygenation perfusion, To improve muscle performance and motor function Thank you for the opportunity to evaluate your patient. For Medicare and Medicare HMO plans, please review the plan of care and approve it. It will need to be FAXED BACK to us at [phone] for Medicare purposes. For Medicare only, by signing this I certify the plan of care. Please let me know if there are questions or concerns regarding this plan of care. Physician Signature: Date:
--- NOTE | 2018-09-17 08:54 | HP.PTREVAL_ITS ---
Joe Perez, DO, It has been my pleasure to treat BRI HERNANDEZ over the last 18 visits for L partial menisectomy, L knee DJD and L knee arthofibrosis. Please see the progress note below for an update on the physical therapy plan of care! Subjective: Pt. reports I am doing okay today, biut I still have a lot of pain. Pt. reports increasd pain with work activities. He reports having difficulty with carrying activities, but is priogressing. pt. is to follow up with physician next week. He reports he continues to have increased difficulty with standing for longer periods of time and has increased edema. Objective/Function: ROM: Pt. continues to be tight into extension, lacking 8 deg of active extnsion, full passive. Pt. has increased edema throughout bilateral distal LEs, L worse than R. MMT- RLE- ankle 5/5 throughout; knee- ext 5/5, fleixon 5/5, hip- flexion 5/5, abd 4+/5, ext 4+/5. LLE- ankle- 5/5; knee- ext 5- /5, flexion 4+/5; hip- flexion 5-/5, abd 4/5, ext 4/5. Core strenght- fair-. GAIT: Pt. ambulates without AD, but has decreased step length, and dcereased TKE during stance phase on LLE. PT. had decreased hip extension and decreased overall bilatal knee flexion. STAIRS: Pt. is able to ascend without issues, wtih 1HR, but descending has functional weakness at final end of LLE loaded desendin g. Plan Plan: Pt. would benefit from continued PT. FOCUS on end range extension to allow for normal gait pattern. Add in end range extension strengthening and work temple exercises as able. Goals Goal 1:: Pt. to be I with HEP. Goal Time Frame: 4-6 Weeks Goal Progress: Progressing Goal 2:: Pt. to to have increased L knee ROM to 0-0-120deg. Goal Time Frame: 4-6 Weeks Goal Progress: Progressing Goal 3:: Pt. to have increased LLE strength by 1/2 grade throughout effected musculature. Goal Time Frame: 4-6 Weeks Goal Progress: Progressing Goal 4:: Pt. ambulate with normal gait pattern without increase in symptoms for unlimited distances. Goal Time Frame: 4-6 Weeks Goal Progress: Progressing Goal 5:: Pt. to resume all work activities without limitations. Goal Time Frame: 4-6 Weeks Goal Progress: Progressing Goal 6:: Pt. to sleep throughout the night without increase in symptoms. Goal Time Frame: 4-6 Weeks Goal Progress: Progressing Anticipated Interventions Patient/Client Instruction: Educate patient on: Condition, Plan of Care, Risk Factors, Benefits of Fitness Program For the Purpose of:: To foster healthy habits, To improve decision making, To facilitate caregiver knowledge, To improve self management, To prevent re- injury, To improve ability to perform tasks related to life management, To improve tolerance to ADL's Therapeutic Exercise to Include: Strength training, Power training, Endurance training, Balance training, Body mechanics, Postural training, Flexibilty training, Gait and locomotor training, Passive ROM, Active ROM For the Purpose of:: To decrease pain, To decrease swelling/inflammation, To increase ROM, To improve nutrient delivery to tissue, To increase oxygenation perfusion, To improve muscle performance and motor function, To improve ability to perform ADL's, To increase tolerance to activity/condition/position, To improve performance and independence with ADL's, To improve gait and locomotor functions, To improve health of tissue, To decrease soft tissue restriction, To increase flexibility/ROM, To improve balance, To improve safety with gait, To assume or resume ADL's Manual Therapy Techniques to Include: Mobilization, Passive ROM, Soft tissue mobilization For the Purpose of:: To decrease pain, To decrease swelling/inflammation, To increase ROM, To improve nutrient delivery to tissue, To increase oxygenation perfusion, To improve muscle performance and motor function Cryotherapy (ice pack, ice massage): Yes For the Purpose of:: To decrease pain, To decrease swelling/inflammation, To increase ROM, To improve nutrient delivery to tissue, To increase oxygenation perfusion, To improve muscle performance and motor function Please do not hesitate to contact me at [phone] by phone or if you have questions or concerns regarding this new plan of care! Sincerely, Marek Mcknight DPT
--- NOTE | 2018-10-21 07:45 | HP.PTDCNRP_ITS ---
HP - Discharge Summary (1) - Patient Information BRI HERNANDEZ was seen in my office for initial evaluation on 07/25/18. The following Plan of Care was established for this patient: Initial Frequency: 2-3x /Week Initial Duration: 4-6 Weeks - Anticipated Interventions Patient/Client Instruction: Educate patient on: Condition, Plan of Care, Risk Factors, Benefits of Fitness Program For the Purpose of:: To foster healthy habits, To improve decision making, To facilitate caregiver knowledge, To improve self management, To prevent re- injury, To improve ability to perform tasks related to life management, To improve tolerance to ADL's Therapeutic Exercise to Include: Strength training, Power training, Endurance training, Balance training, Body mechanics, Postural training, Flexibilty tr aining, Gait and locomotor training, Passive ROM, Active ROM For the Purpose of:: To decrease pain, To decrease swelling/inflammation, To increase ROM, To improve nutrient delivery to tissue, To increase oxygenation perfusion, To improve muscle performance and motor function, To improve ability to perform ADL's, To increase tolerance to activity/condition/position, To impr ove performance and independence with ADL's, To improve gait and locomotor functions, To improve health of tissue, To decrease soft tissue restriction, To increase flexibility/ROM, To improve balance, To improve safety with gait, To assume or resume ADL's Manual Therapy Techniques to Include: Mobilization, Passive ROM, Soft tissue mobilization For the Purpose of:: To decrease pain, To decrease swelling/inflammation, To increase ROM, To improve nutrient delivery to tissue, To increase oxygenation perfusion, To improve muscle performance and motor function Cryotherapy (ice pack, ice massage): Yes For the Purpose of:: To decrease pain, To decrease swelling/inflammation, To increase ROM, To improve nutrient delivery to tissue, To increase oxygenation perfusion, To improve muscle performance and motor function This patient was last seen in our office 10/11/18. Pertinent comments regarding their Physical therapy will appear below: Pt. was seen after his knee arthroscope. Pt. missed his last visit as he was in hospital for syncope episode. Pt. was progressing well with his knee, but did take a little bit longer. Pt. was doing ROM and work hardening like exercises. Pt. will be DC from PT and back to physician at this point in time. At this point I will be discontinuing this patient from physical therapy. I would be happy to see this patient again in the future if found appropriate by the physician. Thank you! BEE LoweT
== END 2018-10-11 19:00 | disposition home or self-care (01) ==
LOC: PT 16:30
PROVIDERS: Family Provider Family Medicine; PCP Family Medicine; Referring Provider Orthopaedic Surgery; Visit Provider Orthopaedic Surgery
DX: S83.242D Other tear of medial meniscus, current injury, left knee, subsequent encounter (principal); S83.282D Other tear of lateral meniscus, current injury, left knee, subsequent encounter; Z98.890 Other specified postprocedural states
CPT/HCPCS: 97016; 97110; 97161

== ENCOUNTER 2018-10-15 10:15 | Observation (INO) | payer OTHER, SELFPAY ==
[2018-09-16 08:02] VITALS: BMI 34.2
[2018-10-15] VITALS (15 sets, daily range): BP systolic 85–161; BP diastolic 61–84; PULSE 52–75; RESP 14–20; TEMP 36.6–36.7; O2SAT 95–99; BMI 33.0; BMI 35.2; BMI 35.3
--- NOTE | 2018-10-15 10:20 | RAD_ITS ---
STUDY: X-RAY CHEST REASON FOR EXAM: Male, 63 years old. Generalized weakness. TECHNIQUE: Single AP portable view of the chest. COMPARISON: Comparison is made with prior study dated October 01, 2017. FINDINGS: EKG electrodes are seen. The lungs are clear and expanded. There is no demonstrated pleural abnormality. There is borderline cardiomegaly. Normal mediastinum and lydia. Normal visualized pulmonary arteries. Normal visualized aortic arch and descending thoracic aorta. There are diffuse degenerative changes of the visualized thoracic spine. Normal visualized ribs, clavicles, and shoulders. There is no demonstrated abnormality of the visualized soft tissue structures of the upper abdomen. RAD/Chest 1 View (Portable) IMPRESSION: Borderline cardiomegaly. Electronically Signed: Rigo Liriano, at 11:38 EDT , Service support ,
--- NOTE | 2018-10-15 10:20 | EKG12_ITS ---
Test Reason : BRADYCARDIA Blood Pressure : / mmHG Vent. Rate : 055 BPM Atrial Rate : 050 BPM P-R Int : 000 ms QRS Dur : 094 ms QT Int : 458 ms P-R-T Axes : 000 001 009 degrees QTc Int : 438 ms Sinus Bradycardia with 1st Degree AV Block Abnormal ECG Confirmed by LAQUITA FULLER ([id number]), department editor MAYNOR TREVIZO ([id number]) on 10/17/2018 8:41:07 AM Referred By: Joe Perez Confirmed By:LAQUITA FULLER
[2018-10-15] MEDS: 0.9% Normal Saline 1,000 ML 1000 ML IV (10:25)
[2018-10-15 10:31] LABS: Bedside Glucose > 500 mg/dL (70-110)
[2018-10-15] MEDS: Insulin Lispro 100 UNIT/ML INSULN.PEN 10 UNIT SC ×2 (10:37→17:38)
[2018-10-15 10:41] LABS: Absolute Lymphocyte Count 1.36 X10^3/ul (0.83-4.51); Basophil# 0.02 X10^3/uL; Basophil% 0.2 % (0-1); Eosinophil# 0.13 X10^3/uL; Eosinophils% 1.6 % (0-5); Hematocrit 30.9 % (40-54); Hemoglobin 10.5 g/dl (13.0-16.5); Lymphocyte # 1.36 X10^3/ul (4.0); Lymphocyte % 16.9 % (19-41); Mean Corpuscular Hgb 26.7 pg (27.0-32.0); Mean Corpuscular Volume 78.6 fL (80-94); Mean Platelet Vol. 10.5 fl (6.2-12.0); Monocyte# 0.58 X10^3/uL; Monocyte% 7.2 % (0-10); Neutrophil # 5.96 X10^3/uL (2.7-7.7); Platelet Count 136 K/mm3 (150-450); RBC Distribution Width CV 13.8 % (11.6-14.6); RBC Distribution Width SD 39.3 fl (35.1-43.9); Red Blood Count 3.93 M/mm3 (4.6-6.2); White Blood Count 8.1 K/mm3 (4.4-11.0)
[2018-10-15 10:42] LABS: POSITIVE COUNT NO; POSITIVE DIFFERENTIAL NO; POSITIVE MORPHOLOGY NO
[2018-10-15 11:20] LABS: Bedside Glucose 490 mg/dL (70-110)
[2018-10-15 11:27] LABS: Anion Gap 6 (5-15); BUN 37 mg/dL (7-18); Calcium,Total 7.6 mg/dL (8.5-10.1); Chloride 104 mmol/L (98-107); Creatinine, Serum 1.76 mg/dL (0.70-1.30); EST Glomerular Filtration Rate 42 mL/min (>60); Est Glom Filt Rate - Afr Amer 51 mL/min (>60); Estimated Creatinine Clearance 47.15 ml/min; Glucose 549 mg/dL (74-106); Potassium 5.2 mmol/L (3.5-5.1); Sodium Level 133 mmol/L (136-145)
--- NOTE | 2018-10-15 11:40 | CT_ITS ---
STUDY: CT ABDOMEN AND PELVIS WITH CONTRAST REASON FOR EXAM: Male, 63 years old. Weeks pale and diaphoretic. History of previous myocardial infarction. RADIATION DOSAGE (If Supplied By Facility): CTDIvol = ( 22.06 ) mGy, DLP = ( 1446.78 ) mGycm TECHNIQUE: Transaxial images were obtained from the dome of the diaphragm to the symphysis pubis without oral contrast, and with intravenous contrast. Sagittal and coronal images were reconstructed. Individualized dose optimization techniques were used for this CT. COMPARISON: February 20, 2016. FINDINGS: Lung bases: Lingular segment 1 cm nodule (axial image 6 series 2). Dependent changes at the lung bases. Heart: Coronary artery disease/stenting. Liver: Hepatic steatosis. Gallbladder/biliary ducts: Cholelithiasis with minimal inflammatory changes (axial image 40 series 2). No biliary ductal dilatation. Pancreas: Mild pancreatic atrophy. Spleen: Unremarkable. Adrenal glands: Unremarkable. Kidneys/ureters/bladder: Mild nonspecific perinephric fat stranding. Low density right lower pole renal lesions measuring cyst. Nonobstructing right 3 mm renal stone (axial image 53 series 2). Nondilated ureters. Normal urinary bladder. Prostate: Seminal vesicle calcifications. Normal volume prostate. Large bowel/small bowel: Moderate constipation. Colonic diverticulosis. No acute large bowel or small bowel process. Appendix: Unremarkable (axial image 51 series 2). Gastroesophageal junction/stomach: Unremarkable. Retroperitoneum/lymph nodes: No intra-abdominal free air. No ascites. No pathologically enlarged lymph nodes. Vascular: Vascular calcifications. No aneurysm. Osseous structures: Degenerative changes. No acute process. Subcutaneous/soft tissues: Uncomplicated ventral mesh hernia repair. No acute process. CT/Abdomen/Pelvis W IV Cont ONLY IMPRESSION: Cholelithiasis with minimal inflammatory changes (correlate LFTs and possible right upper quadrant pain) Nonspecific perinephric fat stranding with nonobstructing renal stones (correlate urinalysis) Constipation Lingular segment 1 cm nodule, follow-up as per below: The Fleischner society pulmonary nodule recommendations are usually for follow-up and management of nodules smaller than 8 mm. Detected Incidentally at non-screening C Nodule size > 8 mm Fllow-up CTs at around 3, 9, and [address], PET, and / or biopsy Electronically Signed: Wale Thorpe DO at 12:22 EDT Tel , Service support ,
--- NOTE | 2018-10-15 12:14 | EKG12_ITS ---
Test Reason : REPEAT EKG Blood Pressure : / mmHG Vent. Rate : 057 BPM Atrial Rate : 057 BPM P-R Int : 246 ms QRS Dur : 096 ms QT Int : 488 ms P-R-T Axes : 045 008 016 degrees QTc Int : 474 ms Poor data quality, interpretation may be adversely affected Sinus bradycardia with 1st degree A-V block Otherwise normal ECG Confirmed by LAQUITA FULLER ([id number]), tape editor MAYNOR TREVIZO ([id number]) on 10/17/2018 8:41:27 AM Referred By: Joe Perez Confirmed By:LAQUITA FULLER
--- NOTE | 2018-10-15 12:15 | ED.VISSUMM ---
- ER Visit Summary Date of Service: 10/15/18 Chief Complaint: [Generalized weakness and near syncope] History of Present Illness: The patient is a 63 M [presents the emergency department via EMS. Patient states that he went to work and around 830 felt like he was going to pass out. Patient was able sit the seat before he passed out. EMS stated the patient became pale and diaphoretic and they noted that his heart rate was 48 when they got there. Blood sugar was elevated at 589. Patient's initial systolic blood pressure was in the 80s and diastolic in the 40s. Patient began complaining of some shortness of breath and therefore EMS started pacing the patient and gave him 2.5 mg of Versed. Patient denies any chest pain. He describes some mild shortness of breath this morning. Patient initially denied abdominal discomfort but he was somewhat somnolent and difficult to get history from initially. Upon later questioning it was noted that he did develop some abdominal pain since yesterday to the lower abdomen. Denies any blood in his stool or black tarry stool. He denies urinary symptoms. Patient was recently admitted to [facility] in [place] for evaluation of strokelike symptoms at that time.] Physical Examination: [HEENT-PERRLA, EOMI. Cranial nerves II through XII grossly intact. TMs clear. Mucous membranes moist. No adenopathy. Patient pale on arrival and speech somewhat thick. Cardiovascular-regular rate and rhythm without murmur or ectopy Lungs-clear to auscultation, chest wall stable without crepitus or subcu emphysema Abdomen-normoactive bowel sounds, soft. Patient has tenderness to the lower abdomen diffusely. There is no rebound, rigidity, or perineal signs. Extremities-intact ?4, normal range of motion, normal pulses, atraumatic] Test Results: [EKG obtained on arrival showed a sinus rhythm with PACs. With a ventricular rate of 55 bpm. CBC with differential showed a white of 8.1, hemoglobin 10.5, hematocrit 31, placed 136. Chemistries unremarkable. Glucose was 549. Troponin is less than 0.015. Chest x-ray showed cardiomegaly which was borderline. CT scan of the abdomen pelvis with IV contrast was ordered given his hypotension to rule out aortic aneurysm versus dissection versus other etiology. On my interpretation I do not appreciate anything significant on the study however official report from radiology pending.] Emergency Department Course and Treatment: On arrival to the emergency department patient was discontinued from the external pacers. Patient was given 2 L normal same fluid bolus and he responded well now systolic in the 110s.] Treatment Plan: Admit for observation. Etiology of his hypotension unclear. [] Disposition: [Admit] Impression: [Near syncope Hypotension Abdominal pain Generalized weakness] This note was generated with [employer] dictation software. It may contain incorrect words, spelling, and punctuation that were not noted in review of the chart prior to signing ED Disposition - Plan for ED Patient: Referrals: Gene Louis MD [Primary Care Provider] -
--- NOTE | 2018-10-15 12:45 | PCM.HP.STD ---
Problem List (1) Syncope Status: Acute Qualifiers: Syncope type: vasovagal syncope Qualified Code(s): R55 - Syncope and collapse History of Present Illness Date of Admission: 10/15/18 Chief Complaint: syncope The patient is a 63 year old [facility], was at work today where he felt that he needed to have a bowel movement went to the bathroom and then passed out. EMS arrived and patient was found to be bradycardic as well as hypotensive. Patient was changed cutaneous paste in the nicolas and did receive Versed with that. Brought to the emergency room. Patient did receive IV fluids and blood pressure did improve. Transcutaneous pacing was discontinued and his heart rate remained in the 50s. Patient overall feels better but still does have this left lower quadrant abdominal pain that began acutely this morning. Patient does have chronic right upper quadrant abdominal tenderness. Patient had a CAT scan that showed some inflammation around the gallbladder and some very nephric stranding. Patient was profoundly hyperglycemic as well in the field and did receive 10 units of insulin in the emergency room as well as a liter of IV fluids. [] Past Medical History Past Medical History (Chronic Problems): Chronic Problems (Last Reviewed 04/24/18 @ 09:11 by Onel Gonzalez MD) Obesity (BMI 30.0-34.9) (Chronic) Old inferior wall myocardial infarction (Chronic) Essential (primary) hypertension (Chronic) Atherosclerotic heart disease of [place] coronary artery without angina pectoris (Chronic) PCI-JEAN CARLOS-CX 06/17/15 Hyperlipidemia (Chronic) Medical History: Medical History (Last Reviewed 10/15/18 @ 12:47 by Wale Adamson DO) Obesity (BMI 30.0-34.9) (Chronic) E66.9 Old inferior wall myocardial infarction (Chronic) I25.2 Essential (primary) hypertension (Chronic) I10 Atherosclerotic heart disease of [place] coronary artery without angina pectoris (Chronic) I25.10 PCI-JEAN CARLOS-CX 06/17/15 Hyperlipidemia (Chronic) E78.5 History of TIA (transient ischemic attack) Z86.73 Type 2 diabetes mellitus E11.9 Allergies escitalopram [From Lexapro] Allergy (Verified 10/15/18 10:49) Unknown sertraline [From Zoloft] Allergy (Verified 10/15/18 10:49) Unknown lisinopril Adverse Reaction (Severe, Verified 10/15/18 10:49) Cough Home Medications: Ambulatory Orders Medication Instructions Recorded Nitroglycerin (INPATIENT USE) 0.4 mg SUBLINGUAL Q5M PRN 06/30/15 [Nitrostat] Insulin Degludec [Tresiba 48 unit SQ DAILY 02/20/17 Flextouch U-200] Insulin Lispro [Humalog KwikPen] 5 - 15 unit SQ TID PRN PRN 02/20/17 clopidogrel 75 mg tablet 75 mg PO DAILY #90 tab 07/18/17 metformin 500 mg tablet 1,000 mg PO DAILY tab 09/04/17 Bupropion HCl [Bupropion Xl] 150 mg PO DAILY 10/01/17 losartan 50 mg tablet 50 mg PO DAILY 04/24/18 Atorvastatin Calcium [Lipitor] 80 mg PO QHS 07/08/18 Carvedilol 12.5 mg PO BID 07/08/18 Pantoprazole Sodium [Protonix] 40 mg PO QDAY 07/08/18 Aspirin E.C. [Ecotrin] 81 mg PO DAILY #0 07/09/18 Apixaban [Eliquis] 10 mg PO BID #74 tab 07/18/18 hydrocodone 5 mg-acetaminophen 325 2 tab PO Q6H PRN #56 tab 07/25/18 mg tablet apixaban 5 mg tablet 5 mg PO BID #60 tab 09/16/18 Surgical History: Surgical History (Last Reviewed 10/15/18 @ 12:47 by Wale Adamson DO) History of coronary artery stent placement (Resolved) Onset Date: 06/17/15 Z95.5 PCI-JEAN CARLOS-CX 06/17/15 H/O abdominal surgery Z98.890 repair spleen Surgical History: angioplasty, herniorrhaphy Smoking Status: Current some day smoker - *Family History Maternal Family History: Family History (Last Reviewed 10/15/18 @ 12:47 by Wale Adamson DO) Father blood clot Sister CVA (cerebral vascular accident) Mother Diabetes History Items: Diabetes Paternal Family History: Family History (Last Reviewed 10/15/18 @ 12:47 by Wale Adamson DO) Father blood clot Sister CVA (cerebral vascular accident) Mother Diabetes History Items: - - dvt in leg Sibling Family History: Family History (Last Reviewed 10/15/18 @ 12:47 by Wale Adamson DO) Father blood clot Sister CVA (cerebral vascular accident) Mother Diabetes History Items: - - brother with cad, prostate cancer possible kidney or liver problem.sister with stroke Review of Systems Constitutional: Reports: Malaise, Weakness. Denies: Anorexia, Chills, Fever, Night Sweats Eyes: Denies: Blurred vision, Double vision HEENT: Denies: Head Aches, Sinus Congestion, Sinus Drainage Cardiovascular: Denies: Chest Pain, Palpitations Respiratory: Reports: Shortness of Breath. Denies: Cough Gastrointestinal: Reports: Abdominal Pain, Nausea. Denies: Diarrhea, Vomiting Genitourinary: Denies: Dysuria, Hematuria Musculoskeletal: Denies: Joint Pain, Joint Tenderness Skin: Denies: Rash, Wounds Neurological: Reports: Balance problems. Denies: Blurred vision, Focal weakness, Numbness Psychiatric: Denies: Anxiety, Depression Hematologic/ Lymphatic: Denies: Easy Bruising, Easy Bleeding, Hx of blood clot Comment: A 10 point review of systems were negative except as mentioned in the history of present illness and the other review of systems. VTE Information - Inpt Only VTE Present on Admission: No VTE Mechan Device Prophylaxis: None VTE Pharm Prophylaxis ordered?: No Reason prophylaxis not ordered:: Procedure Not Indicated Patient Problems: Active and Suspected Problems (Last Reviewed 04/24/18 @ 09:11 by Onel Gonzalez MD) Syncope (Acute) - Physical Exam General: Alert, Cooperative, No apparent distress HEENT: Atraumatic, Normocephalic, - - No scleral icterus Oral: No Gingival or Mucosal Lesions/ Ulcerations, Dry Mucosa Neck: No Nodes, Thyroid Normal Size and Texture Lungs: Clear to auscultation, Normal air movement, No rhonchi, No wheeze Cardiovascular: Regular rate, Regular Rhythm, Normal S1, Normal S2, No murmurs Abdomen: Bowel Sounds Present, Soft, Non-Distended, - - Mild right upper quadrant tenderness but negative Echevarria sign. Extremities: No edema, No Calf Tenderness Skin: No rashes, No breakdown Musculoskeletal: No Tenderness to Palpation of Joints or Extremities, No Muscle Wasting Neurological: - - No clonus Psych/Mental Status: Normal Affect, Appropriate Vital Signs Temp Pulse Resp BP Pulse Ox 36.6 C 52 L 18 118/65 99 10/15/18 10:16 10/15/18 11:55 10/15/18 11:55 10/15/18 11:55 10/15/18 11:55 Oxygen Flow Rate (L/min) 3.5 Oxygen Delivery Method Nasal Cannula Weight: 110.3 kg Body Mass Index (BMI) 33.0 Finger Stick Blood Glucose 490 Laboratory Tests Past 24 Hrs 10/15/18 10/15/18 10:25 10:25 WBC 8.1 RBC 3.93 L Hgb 10.5 L Hct 30.9 L MCV 78.6 L MCH 26.7 L MCHC 34.0 RDW 13.8 RDW Differential 39.3 Plt Count 136 L MPV 10.5 Immature Gran % (Auto) 0.100 Neut % (Auto) 74.0 H Lymph % (Auto) 16.9 L [place] % (Auto) 7.2 Eos % (Auto) 1.6 Baso % (Auto) 0.2 Absolute Neuts (auto) 6.0 Absolute Lymphs (auto) 1.36 Total Counted Not Reportable Sodium 133 L Potassium 5.2 H Chloride 104 Carbon Dioxide 23.0 Anion Gap 6 BUN 37 H Creatinine 1.76 H Estim Creat Clear Calc 47.15 Est GFR (MDRD) Af Amer 51 L Est GFR (MDRD) Non-Af 42 L BUN/Creatinine Ratio 21.0 H Glucose 549 H* Calcium 7.6 L Troponin I < 0.015 POC Glucose 10/15/18 10/15/18 11:14 10:23 POC Glucose 490 H* > 500 H* EKG reviewed and shows sinus bradycardia with a heart rate of 55. No other acute changes noted. Clinical Impression(s) from Imaging Studies Chest X-Ray 10/15/18 10:20 IMPRESSION: Borderline cardiomegaly. Electronically Signed: Rigo Liriano, at 11:38 EDT , Service support , Abdomen/Pelvis CT 10/15/18 11:40 IMPRESSION: Cholelithiasis with minimal inflammatory changes (correlate LFTs and possible right upper quadrant pain) Nonspecific perinephric fat stranding with nonobstructing renal stones (correlate urinalysis) Constipation Lingular segment 1 cm nodule, follow-up as per below: The Fleischner society pulmonary nodule recommendations are usually for follow-up and management of nodules smaller than 8 mm. Detected Incidentally at non-screening C Nodule size > 8 mm Fllow-up CTs at around 3, 9, and 24 months Dynamic contrast enhanced CT, PET, and / or biopsy Electronically Signed: Wale Maurilio, at 12:22 EDT Tel , Service support , Assessment/Plan All Active Problems (Last Reviewed 04/24/18 @ 09:11 by Onel Gonzalez MD) Syncope (Acute) Tear of lateral meniscus of left knee (Acute) Tear of medial meniscus of left knee (Acute) History of coronary artery stent placement (Resolved 06/17/15) Abrasion, left lower leg, initial encounter (Acute) Contusion of lower leg, left (Acute) Contusion of left knee (Acute) History of small bowel obstruction (Resolved) Myocardial infarct (Resolved) history of traumatic pneumothorax (Resolved) 1. Syncope. Suspect vasovagal related with his abdominal pain We will cycle troponins and cycle the patient on telemetry. I feel that the bradycardia in the hypotensive was likely related with the syncopal event. Hold losartan 2. Left lower quadrant abdominal tenderness Noted perinephric stranding. We will check an ultrasound to evaluate patient may have passed a kidney stone or not. 3. Right upper quadrant abdominal pain Chronic Check ultrasound to evaluate if he does indeed have cholecystitis 4. Diabetes mellitus type 2 uncontrolled Continue with his basal and prandial insulin plus sliding scale Hold off on metformin for now 5. History of VTE On Eliquis 6. VTE prophylaxis: Patient is a low risk as he is already on Eliquis. Therefore not indicated. Discussed with the patient's [id number] at bedside. Code Visit OBSV E&M: 33600 Initial observation care L3
--- NOTE | 2018-10-15 12:49 | HP.PCM_ITS ---
Problem List (1) Syncope Status: Acute Qualifiers: Syncope type: vasovagal syncope Qualified Code(s): R55 - Syncope and collapse History of Present Illness Date of Admission: 10/15/18 Chief Complaint: syncope The patient is a 63 year old [facility], was at work today where he felt that he needed to have a bowel movement went to the bathroom and then passed out. EMS arrived and patient was found to be bradycardic as well as hypotensive. Patient was changed cutaneous paste in the [facility]olas and did receive Versed with that. Brought to the emergency room. Patient did receive IV fluids and blood pressure did improve. Transcutaneous pacing was discontinued and his heart rate remained in the 50s. Patient overall feels better but still does have this left lower quadrant abdominal pain that began acutely this morning. Patient does have chronic right upper quadrant abdominal tenderness. Patient had a CAT scan that showed some inflammation around the gallbladder and some very nephric stranding. Patient was profoundly hyperglycemic as well in the field and did receive 10 units of insulin in the emergency room as well as a liter of IV fluids. [] Past Medical History Past Medical History (Chronic Problems): Chronic Problems (Last Reviewed 04/24/18 @ 09:11 by Onel Gonzalez MD) Obesity (BMI 30.0-34.9) (Chronic) Old inferior wall myocardial infarction (Chronic) Essential (primary) hypertension (Chronic) Atherosclerotic heart disease of [place] coronary artery without angina pectoris (Chronic) PCI-JEAN CARLOS-CX 06/17/15 Hyperlipidemia (Chronic) Medical History: Medical History (Last Reviewed 10/15/18 @ 12:47 by Wale Adamson DO) Obesity (BMI 30.0-34.9) (Chronic) E66.9 Old inferior wall myocardial infarction (Chronic) I25.2 Essential (primary) hypertension (Chronic) I10 Atherosclerotic heart disease of [place] coronary artery without angina pectoris (Chronic) I25.10 PCI-JEAN CARLOS-CX 06/17/15 Hyperlipidemia (Chronic) E78.5 History of TIA (transient ischemic attack) Z86.73 Type 2 diabetes mellitus E11.9 Allergies escitalopram [From Lexapro] Allergy (Verified 10/15/18 10:49) Unknown sertraline [From Zoloft] Allergy (Verified 10/15/18 10:49) Unknown lisinopril Adverse Reaction (Severe, Verified 10/15/18 10:49) Cough Home Medications: Ambulatory Orders Medication Instructions Recorded Nitroglycerin (INPATIENT USE) 0.4 mg SUBLINGUAL Q5M PRN 06/30/15 [Nitrostat] Insulin Degludec [Tresiba 48 unit SQ DAILY 02/20/17 Flextouch U-200] Insulin Lispro [Humalog KwikPen] 5 - 15 unit SQ TID PRN PRN 02/20/17 clopidogrel 75 mg tablet 75 mg PO DAILY #90 tab 07/18/17 metformin 500 mg tablet 1,000 mg PO DAILY tab 09/04/17 Bupropion HCl [Bupropion Xl] 150 mg PO DAILY 10/01/17 losartan 50 mg tablet 50 mg PO DAILY 04/24/18 Atorvastatin Calcium [Lipitor] 80 mg PO QHS 07/08/18 Carvedilol 12.5 mg PO BID 07/08/18 Pantoprazole Sodium [Protonix] 40 mg PO QDAY 07/08/18 Aspirin E.C. [Ecotrin] 81 mg PO DAILY #0 07/09/18 Apixaban [Eliquis] 10 mg PO BID #74 tab 07/18/18 hydrocodone 5 mg-acetaminophen 325 2 tab PO Q6H PRN #56 tab 07/25/18 mg tablet apixaban 5 mg tablet 5 mg PO BID #60 tab 09/16/18 Surgical History: Surgical History (Last Reviewed 10/15/18 @ 12:47 by Wale Adamson DO) History of coronary artery stent placement (Resolved) Onset Date: 06/17/15 Z95.5 PCI-JEAN CARLOS-CX 06/17/15 H/O abdominal surgery Z98.890 repair spleen Surgical History: angioplasty, herniorrhaphy Smoking Status: Current some day smoker - *Family History Maternal Family History: Family History (Last Reviewed 10/15/18 @ 12:47 by Wale Adamson DO) Father blood clot Sister CVA (cerebral vascular accident) Mother Diabetes History Items: Diabetes Paternal Family History: Family History (Last Reviewed 10/15/18 @ 12:47 by Wale Adamson DO) Father blood clot Sister CVA (cerebral vascular accident) Mother Diabetes History Items: - - dvt in leg Sibling Family History: Family History (Last Reviewed 10/15/18 @ 12:47 by Wale Adamson DO) Father blood clot Sister CVA (cerebral vascular accident) Mother Diabetes History Items: - - brother with cad, prostate cancer possible kidney or liver problem.sister with stroke Review of Systems Constitutional: Reports: Malaise, Weakness. Denies: Anorexia, Chills, Fever, Night Sweats Eyes: Denies: Blurred vision, Double vision HEENT: Denies: Head Aches, Sinus Congestion, Sinus Drainage Cardiovascular: Denies: Chest Pain, Palpitations Respiratory: Reports: Shortness of Breath. Denies: Cough Gastrointestinal: Reports: Abdominal Pain, Nausea. Denies: Diarrhea, Vomiting Genitourinary: Denies: Dysuria, Hematuria Musculoskeletal: Denies: Joint Pain, Joint Tenderness Skin: Denies: Rash, Wounds Neurological: Reports: Balance problems. Denies: Blurred vision, Focal weakness, Numbness Psychiatric: Denies: Anxiety, Depression Hematologic/ Lymphatic: Denies: Easy Bruising, Easy Bleeding, Hx of blood clot Comment: A 10 point review of systems were negative except as mentioned in the history of present illness and the other review of systems. VTE Information - Inpt Only VTE Present on Admission: No VTE Mechan Device Prophylaxis: None VTE Pharm Prophylaxis ordered?: No Reason prophylaxis not ordered:: Procedure Not Indicated Patient Problems: Active and Suspected Problems (Last Reviewed 04/24/18 @ 09:11 by Onel Gonzalez MD) Syncope (Acute) - Physical Exam General: Alert, Cooperative, No apparent distress HEENT: Atraumatic, Normocephalic, - - No scleral icterus Oral: No Gingival or Mucosal Lesions/ Ulcerations, Dry Mucosa Neck: No Nodes, Thyroid Normal Size and Texture Lungs: Clear to auscultation, Normal air movement, No rhonchi, No wheeze Cardiovascular: Regular rate, Regular Rhythm, Normal S1, Normal S2, No murmurs Abdomen: Bowel Sounds Present, Soft, Non-Distended, - - Mild right upper quadrant tenderness but negative Echevarria sign. Extremities: No edema, No Calf Tenderness Skin: No rashes, No breakdown Musculoskeletal: No Tenderness to Palpation of Joints or Extremities, No Muscle Wasting Neurological: - - No clonus Psych/Mental Status: Normal Affect, Appropriate Vital Signs Temp Pulse Resp BP Pulse Ox 36.6 C 52 L 18 118/65 99 10/15/18 10:16 10/15/18 11:55 10/15/18 11:55 10/15/18 11:55 10/15/18 11:55 Oxygen Flow Rate (L/min) 3.5 Oxygen Delivery Method Nasal Cannula Weight: 110.3 kg Body Mass Index (BMI) 33.0 Finger Stick Blood Glucose 490 Laboratory Tests Past 24 Hrs 10/15/18 10/15/18 10:25 10:25 WBC 8.1 RBC 3.93 L Hgb 10.5 L Hct 30.9 L MCV 78.6 L MCH 26.7 L MCHC 34.0 RDW 13.8 RDW Differential 39.3 Plt Count 136 L MPV 10.5 Immature Gran % (Auto) 0.100 Neut % (Auto) 74.0 H Lymph % (Auto) 16.9 L [place] % (Auto) 7.2 Eos % (Auto) 1.6 Baso % (Auto) 0.2 Absolute Neuts (auto) 6.0 Absolute Lymphs (auto) 1.36 Total Counted Not Reportable Sodium 133 L Potassium 5.2 H Chloride 104 Carbon Dioxide 23.0 Anion Gap 6 BUN 37 H Creatinine 1.76 H Estim Creat Clear Calc 47.15 Est GFR (MDRD) Af Amer 51 L Est GFR (MDRD) Non-Af 42 L BUN/Creatinine Ratio 21.0 H Glucose 549 H* Calcium 7.6 L Troponin I < 0.015 POC Glucose 10/15/18 10/15/18 11:14 10:23 POC Glucose 490 H* > 500 H* EKG reviewed and shows sinus bradycardia with a heart rate of 55. No other acute changes noted. Clinical Impression(s) from Imaging Studies Chest X-Ray 10/15/18 10:20 IMPRESSION: Borderline cardiomegaly. Electronically Signed: Rigo Liriano, at 11:38 EDT , Service support , Abdomen/Pelvis CT 10/15/18 11:40 IMPRESSION: Cholelithiasis with minimal inflammatory changes (correlate LFTs and possible right upper quadrant pain) Nonspecific perinephric fat stranding with nonobstructing renal stones (correlate urinalysis) Constipation Lingular segment 1 cm nodule, follow-up as per below: The Fleischner society pulmonary nodule recommendations are usually for follow-up and management of nodules smaller than 8 mm. Detected Incidentally at non-screening C Nodule size > 8 mm Fllow-up CTs at around 3, 9, and 24 [address] Dynamic contrast [address], PET, and / or biopsy Electronically Signed: Wale DO Maurilio at 12:22 EDT Tel , Service support , Assessment/Plan All Active Problems (Last Reviewed 04/24/18 @ 09:11 by Onel Gonzalez MD) Syncope (Acute) Tear of lateral meniscus of left knee (Acute) Tear of medial meniscus of left knee (Acute) History of coronary artery stent placement (Resolved 06/17/15) Abrasion, left lower leg, initial encounter (Acute) Contusion of lower leg, left (Acute) Contusion of left knee (Acute) History of small bowel obstruction (Resolved) Myocardial infarct (Resolved) history of traumatic pneumothorax (Resolved) 1. Syncope. * Suspect vasovagal related with his abdominal pain * We will cycle troponins and cycle the patient on telemetry. * I feel that the bradycardia in the hypotensive was likely related with the syncopal event. * Hold losartan 2. Left lower quadrant abdominal tenderness * Noted perinephric stranding. * We will check an ultrasound to evaluate patient may have passed a kidney stone or not. 3. Right upper quadrant abdominal pain * Chronic * Check ultrasound to evaluate if he does indeed have cholecystitis 4. Diabetes mellitus type 2 * uncontrolled * Continue with his basal and prandial insulin plus sliding scale * Hold off on metformin for now 5. History of VTE * On Eliquis 6. VTE prophylaxis: Patient is a low risk as he is already on Eliquis. Therefore not indicated. Discussed with the patient's [id number] at bedside. Code Visit OBSV E&M: 87395 Initial observation care L3
[2018-10-15 13:01] LABS: AST(SGOT) 12 U/L (15-37); Alanine Aminotransfer ALT/SGPT 16 U/L (16-61); Albumin, Serum 2.2 g/dL (3.2-5.0); Alkaline Phosphatase 180 U/L (45-117); Bilirubin, Direct 0.07 mg/dL (0.00-0.30); Globulin 3.6 g/dL (2.2-4.2); Protein, Total 5.8 g/dL (6.4-8.2)
--- NOTE | 2018-10-15 13:26 | US_ITS ---
STUDY: ABDOMINAL ULTRASOUND - RIGHT UPPER QUADRANT REASON FOR VISIT: Male, 63 years old. Right upper quadrant pain. TECHNIQUE: Ultrasound evaluation of the right upper quadrant was performed with real-time and static lama-scale imaging. TECHNICAL QUALITY: Limited by bowel gas. COMPARISON: CT dated 10/15/2018 FINDINGS: Liver: The liver measures 16.9 cm. There is increased echogenicity consistent with fatty infiltration. The bile ducts are within normal limits. There is hepatic color flow. The direction of portal flow is hepatopetal. There is no demonstrated mass lesion. Gallbladder: Normal distended gallbladder. The gallbladder wall measures 3 mm. There is a negative sonographic Echevarria's sign. There is pericholecystic fluid. There are multiple echogenic structures within the gallbladder, consistent with multiple gallstones. Common Bile Duct (C.B.D.): The common bile duct measures 3 mm. Pancreas: There is nonvisualization of the pancreas. Right Kidney: Normal size of the right kidney. The right kidney measures 13.7 cm. Normal renal cortex. There are simple cysts in the right kidney with the largest measuring 2.9 x 2.7 cm. There is no right hydronephrosis. US/Abdomen Limited IMPRESSION: Gallstones with pericholecystic fluid. No gallbladder wall thickening. The waterfront director reports a negative sonographic Echevarria sign. Therefore, there are no definite sonographic findings of acute cholecystitis. If concern persists, consider further evaluation with a nuclear medicine hepatobiliary study. Fatty liver. Right renal cysts. Electronically Signed: Abundio Jones, at 18:40 EDT Tel , Service support ,
--- NOTE | 2018-10-15 13:26 | US_ITS ---
STUDY: RENAL ULTRASOUND - COMPLETE REASON FOR EXAM: Male, 63 years old. Left lower quadrant pain. TECHNIQUE: Ultrasound evaluation of the kidneys was performed with real-time and static scott-scale imaging. COMPARISON: CT dated 10/15/2018. FINDINGS: RIGHT KIDNEY: Normal location of the right kidney, which is normal in size. The right kidney measures 13.8 cm. There is a normal cortex of the right kidney. There are simple cysts in the right kidney with the largest measuring 2.1 x 2.1 cm. There are no right renal calculi. There is no right hydronephrosis. DISTAL RIGHT URETER: There is non-visualization of the distal right ureter. There is no demonstrated right ureterovesical junction calculus. There is no demonstrated right ureteral jet. LEFT KIDNEY: Normal location of the left kidney, which is normal in size. The left kidney measures 14.2 cm. There is a normal cortex of the left kidney. There is no left renal mass or cyst. There are no left renal calculi. There is no left hydronephrosis. DISTAL LEFT URETER: There is non-visualization of the distal left ureter. There is no demonstrated left ureterovesical junction calculus. There is no demonstrated left ureteral jet. BLADDER: The urinary bladder is partially distended and appears unremarkable. US/Kidney and Bladder IMPRESSION: Simple cysts in the right kidney. Otherwise, unremarkable renal ultrasound. Electronically Signed: Abundio Jones, at 17:22 EDT Tel , Service support ,
[2018-10-15 15:06] LABS: Bacteria 0 SEEN /hpf (None Seen); Mucous, Urine 0 SEEN /hpf (<or=2+)
[2018-10-15 15:08] LABS: Color, Urine Yellow (Yellow); Glucose, Dipstick 1000 mg/dl (Normal); Ketone-Dipstick Negative (Negative); Leukocyte Esterase-Dipstick Negative /ul (Negative); Nitrite-Dipstick Negative (Negative); Occult Blood-Urine 25 /ul (Negative); Protein-Dipstick 500 mg/dl (Negative); Urine Bilirubin Dipstick Negative (Negative); Urine Clarity Clear (Clear); Urine Urobilinogen Normal (Normal)
[2018-10-15 15:14] LABS: White Blood Cells 0-5 SEEN /hpf (0-5)
[2018-10-15 15:15] LABS: Red Blood Cells-Urine 0-5 SEEN /hpf (0-5); Squamous Epithelial Cells - UA 0-5 SEEN /hpf (0-5)
[2018-10-15] MEDS: 0.9% Normal Saline 1,000 ML 150 ML IV (15:26)
[2018-10-15] MEDS: Insulin Lispro 100 UNIT/ML INSULN.PEN SQ (17:39)
[2018-10-15 17:41] LABS: Bedside Glucose 338 mg/dL (70-110)
[2018-10-15] MEDS: APIXABAN 5 MG TABLET PO (21:34)
[2018-10-15] MEDS: Carvedilol 12.5 MG Tablet PO (21:34)
[2018-10-15 22:05] LABS: Bedside Glucose 243 mg/dL (70-110)
[2018-10-16 01:18] VITALS: BP 150/79; PULSE 71; RESP 16; TEMP 36.6; O2SAT 97
[2018-10-16 03:39] VITALS: PULSE 78
[2018-10-16 05:40] VITALS: BP 156/80; PULSE 74; RESP 17; TEMP 36.6; O2SAT 96
[2018-10-16 06:35] LABS: Bedside Glucose 160 mg/dL (70-110)
[2018-10-16 06:45] LABS: Anion Gap 9 (5-15); BUN 28 mg/dL (7-18); BUN/Creat Ratio 21.2 RATIO (10-20); Calcium,Total 7.9 mg/dL (8.5-10.1); Chloride 111 mmol/L (98-107); Creatinine, Serum 1.32 mg/dL (0.70-1.30); EST Glomerular Filtration Rate 58 mL/min (>60); Est Glom Filt Rate - Afr Amer 70 mL/min (>60); Estimated Creatinine Clearance 57.28 ml/min; Glucose 167 mg/dL (74-106); Potassium 3.8 mmol/L (3.5-5.1); Sodium Level 144 mmol/L (136-145)
[2018-10-16 07:00] VITALS: PULSE 74
[2018-10-16] MEDS: Insulin Lispro 100 UNIT/ML INSULN.PEN 10 UNIT SC ×2 (08:34→11:58)
[2018-10-16] MEDS: Insulin Lispro 100 UNIT/ML INSULN.PEN SQ ×2 (08:35→11:57)
[2018-10-16] MEDS: Aspirin E.C. 81 MG Tablet PO (08:40)
[2018-10-16] MEDS: Pantoprazole Sodium 40 MG Tablet PO (08:40)
[2018-10-16] MEDS: Clopidogrel Bisulfate 75 MG Tablet PO (08:40)
[2018-10-16] MEDS: APIXABAN 5 MG TABLET PO (08:40)
[2018-10-16] MEDS: Carvedilol 12.5 MG Tablet PO (08:40)
[2018-10-16 08:52] VITALS: BP 164/89; PULSE 78; RESP 16; TEMP 36.7; O2SAT 96
--- NOTE | 2018-10-16 11:59 | DCINST_ITS ---
- Discharge Diagnoses Current Active Problems: Current Active and Chronic Problems (Last Reviewed 10/15/18 @ 12:47 by Wale Adamson DO) Syncope (Acute) You will use the following diet at home:: Calorie/Carbohydrate Controlled (specify 1200, 1400, etc) - 1800 Your food should be the consistency of: Regular Your liquids should be the consistency of: Regular/Thin Discharge Activity: Return to Normal Activity Call your doctor if you observe: Fainting spells Allergies/Adverse Reactions: Allergies escitalopram [From Lexapro] Allergy (Verified 10/15/18 10:49) Unknown sertraline [From Zoloft] Allergy (Verified 10/15/18 10:49) Unknown lisinopril Adverse Reaction (Severe, Verified 10/15/18 10:49) Cough Medications to take at Discharge Nitroglycerin (INPATIENT USE) [Nitrostat] 0.4 mg SUBLINGUAL Q5M PRN 06/30/15 Insulin Degludec [Tresiba Flextouch U-200] 48 unit SQ DAILY 02/20/17 Insulin Lispro [Humalog KwikPen] 10 unit SQ TID PRN PRN 02/20/17 clopidogrel 75 mg tablet 75 mg PO DAILY #90 tab 07/18/17 metformin 500 mg tablet 1,000 mg PO DAILY tab 09/04/17 losartan 50 mg tablet 50 mg PO DAILY 04/24/18 Atorvastatin Calcium [Lipitor] 80 mg PO QHS 07/08/18 Carvedilol 12.5 mg PO BID 07/08/18 Pantoprazole Sodium [Protonix] 40 mg PO QDAY 07/08/18 Aspirin E.C. [Ecotrin] 81 mg PO DAILY #0 07/09/18 apixaban 5 mg tablet 5 mg PO BID #60 tab 09/16/18 Primary Care Physician: Gene Louis MD [Primary Care Provider] - Within 2 Weeks Test Results: Test results from this visit will be discussed in further detail at your follow- up appointment, if applicable. Proposed Discharge Date: 10/16/18
--- NOTE | 2018-10-16 11:59 | PCM.DC.SUM ---
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 Electronically Signed: Rigo Liriano, at 11:38 EDT , Service support , Abdomen/Pelvis CT 10/15/18 11:40 IMPRESSION: Cholelithiasis with minimal inflammatory changes (correlate LFTs and possible right upper quadrant pain) Nonspecific perinephric fat stranding with nonobstructing renal stones (correlate urinalysis) Constipation Lingular segment 1 cm nodule, follow-up as per below: The Fleischner society pulmonary nodule recommendations are usually for follow-up and management of nodules smaller than 8 mm. Detected Incidentally at non-screening C Nodule size > 8 mm Fllow-up CTs at around 3, 9, and 24 months Dynamic contrast enhanced CT, PET, and / or biopsy Electronically Signed: Wale Thorpe DO at 12:22 EDT Tel , Service support , Abdomen Ultrasound 10/15/18 13:26 IMPRESSION: Gallstones with pericholecystic fluid. No gallbladder wall thickening. The sheet manager reports a negative sonographic Echevarria sign. Therefore, there are no definite sonographic findings of acute cholecystitis. If concern persists, consider further evaluation with a nuclear medicine hepatobiliary study. Fatty liver. Right renal cysts. Electronically Signed: Abundio Jones, at 18:40 EDT Tel , Service support , Renal Ultrasound 10/15/18 13:26 IMPRESSION: Simple cysts in the right kidney. Otherwise, unremarkable renal ultrasound. Electronically Signed: Abundio Jones, at 17:22 EDT Tel , Service support , Operations: None Procedures: None Summary of Care Provided: The patient is a 63 year old M presents with a syncope while at work. Having some abdominal pain that preceded that and then had a near syncopal episode. Patient was noted to be hypotensive and bradycardic and did have cutaneous pacing in the field. Brought to the emergency room and the cutaneous pacing was discontinued. Patient did receive IV fluids and blood pressure did improve and is other vital signs did improve as well. Patient did have some acute kidney injury with initial creatinine 1.72 that did improve to 1.3 with IV fluids. It is my assessment that the patient had a vasovagal syncopal episode due to some transient abdominal pain. Patient did have an ultrasound of his kidneys that was negative for any kidney stones and did have a right upper quadrant ultrasound as well that was negative for any acute cholecystitis. Patient does have a history of chronic right upper quadrant abdominal pain but did have a negative Echevarria sign sonographically. Discussed with the patient that this is likely a vasovagal type episode and unclear if this will ever happen again but patient advised to be does have symptoms similar to this in the in the future to take a break from what ever it is that he is doing. I did explain to the patient he needs to drink more fluids. Patient does endorse that he despises water. I explained to patient he needs to drink more fluids and were not some flavored water or some sugar-free beverage to keep him hydrated. Patient is a blood sugars are really high when he came in here but did receive sugary substance prior to him coming in by the nurse at his work. [] Patient Problems: Active and Suspected Problems (Last Reviewed 10/15/18 @ 12:47 by Wale Adamson DO) Syncope (Acute) - Physical Exam General: Alert, No apparent distress HEENT: Atraumatic, Normocephalic Oral: Moist Mucosa, No Gingival or Mucosal Lesions/ Ulcerations Neck: No Nodes, Thyroid Normal Size and Texture Lungs: Clear to auscultation, Normal air movement, No rhonchi, No wheeze Cardiovascular: Regular rate, Regular Rhythm, Normal S1, Normal S2, No murmurs Abdomen: Bowel Sounds Present, Soft, - - slight RUQ tenderness. Vital Signs Temp Pulse Resp BP Pulse Ox 36.7 C 78 16 164/89 H 96 10/16/18 08:52 10/16/18 08:52 10/16/18 08:52 10/16/18 08:52 10/16/18 08:52 Oxygen Flow Rate (L/min) 2 Oxygen Delivery Method Room Air Weight: 108.4 kg Body Mass Index (BMI) 35.2 Finger Stick Blood Glucose 490 Orthostatic Vital Signs Start: 10/15/18 15:45 Freq: q24h Status: Active Protocol: Activity Type Activity Date Activity User E-Sign Co-Sign Detail Recorded Client Recorded Date Recorded By Document 10/15/18 15:45 DS [id number] 10/15/18 15:55 DS 10/15/18 15:45 Orthostatic Vitals Standing -Blood Pressure (90/60-120/80) 136/68 H -Extremity Use Right Arm -Pulse Rate (60-100) 69 Sitting -Blood Pressure (90/60-120/80) 135/66 H -Extremity Use Right Arm -Pulse Rate (60-100) 70 Lying -Blood Pressure (90/60-120/80) 138/75 H -Extremity Use Right Arm -Pulse Rate (60-100) 66 Intake and Output for Last 24 Hours 10/14/18 10/15/18 10/16/18 23:59 23:59 23:59 Intake Total 348 / 348 1100 / 1100 Balance 348 / 348 1100 / 1100 Laboratory Tests Past 24 Hrs 10/15/18 10/15/18 10/15/18 10:25 14:05 14:50 Sodium Potassium Chloride Carbon Dioxide Anion Gap BUN Creatinine Estim Creat Clear Calc Est GFR (MDRD) Af Amer Est GFR (MDRD) Non-Af BUN/Creatinine Ratio Glucose Calcium Total Bilirubin 0.30 Direct Bilirubin 0.07 AST 12 L ALT 16 Alkaline Phosphatase 180 H Troponin I < 0.015 Total Protein 5.8 L Albumin 2.2 L Globulin 3.6 Urine Color Yellow Urine Clarity Clear Urine pH 6.0 Ur Specific [place] 1.010 Urine Protein 500 H Urine Glucose (UA) 1000 H Urine Ketones Negative Urine Occult Blood 25 H Urine Nitrite Negative Urine Bilirubin Negative Urine Urobilinogen Normal Ur Leukocyte Esterase Negative Urine RBC 0-5 SEEN Urine WBC 0-5 SEEN Ur Squamous Epith Cells 0-5 SEEN Urine Bacteria 0 SEEN Urine Mucus 0 SEEN 10/15/18 10/16/18 16:55 05:25 Sodium 144 Potassium 3.8 Chloride 111 H Carbon Dioxide 24.0 Anion Gap 9 BUN 28 H Creatinine 1.32 H Estim Creat Clear Calc 57.28 Est GFR (MDRD) Af Amer 70 Est GFR (MDRD) Non-Af 58 L BUN/Creatinine Ratio 21.2 H Glucose 167 H Calcium 7.9 L Total Bilirubin Direct Bilirubin AST ALT Alkaline Phosphatase Troponin I < 0.015 Total Protein Albumin Globulin Urine Color Urine Clarity Urine pH Ur Specific [place] Urine Protein Urine Glucose (UA) Urine Ketones Urine Occult Blood Urine Nitrite Urine Bilirubin Urine Urobilinogen Ur Leukocyte Esterase Urine RBC Urine WBC Ur Squamous Epith Cells Urine Bacteria Urine Mucus POC Glucose 10/16/18 10/15/18 10/15/18 06:23 21:39 17:31 POC Glucose 160 H 243 H 338 H Discharge Diet: 1800 Calorie Control Diet Discharge Activity: Return to Normal Activity Call your doctor if you observe: Fainting spells Home Medications: Medications to take at Discharge Nitroglycerin (INPATIENT USE) [Nitrostat] 0.4 mg SUBLINGUAL Q5M PRN 06/30/15 Insulin Degludec [Tresiba Flextouch U-200] 48 unit SQ DAILY 02/20/17 Insulin Lispro [Humalog KwikPen] 10 unit SQ TID PRN PRN 02/20/17 clopidogrel 75 mg tablet 75 mg PO DAILY #90 tab 07/18/17 metformin 500 mg tablet 1,000 mg PO DAILY tab 09/04/17 losartan 50 mg tablet 50 mg PO DAILY 04/24/18 Atorvastatin Calcium [Lipitor] 80 mg PO QHS 07/08/18 Carvedilol 12.5 mg PO BID 07/08/18 Pantoprazole Sodium [Protonix] 40 mg PO QDAY 07/08/18 Aspirin E.C. [Ecotrin] 81 mg PO DAILY #0 07/09/18 apixaban 5 mg tablet 5 mg PO BID #60 tab 09/16/18 Primary Care Physician: Gene Louis MD [Primary Care Provider] - Within 2 Weeks Disposition: Home Minutes spent on discharge:: 26 Patient Condition:: Good Medical Necessity - Tobacco Use Smoking Status: Former smoker Meaningful Use Info Meaningful Use Diagnoses (Choose all that apply): None applicable Code Visit OBSV E&M: 94406 Observation care discharge
--- NOTE | 2018-10-16 12:03 | DS.PCM_ITS ---
Discharge Date and Diagnosis - Problem List Patient Problems: Active and Suspected Problems (Last Reviewed 10/15/18 @ 12:47 by Wale Adamson DO) Syncope (Acute) Date of Admission: 10/15/18 Date of Discharge: 10/16/18 - Primary Discharge Diagnosis Active and Suspected Problems (Last Reviewed 10/15/18 @ 12:47 by Wale Adamson DO) Syncope (Acute) - Secondary Discharge Diagnosis Chronic Problems (Last Reviewed 10/15/18 @ 12:47 by Wale Adamson DO) Obesity (BMI 30.0-34.9) (Chronic) Old inferior wall myocardial infarction (Chronic) Essential (primary) hypertension (Chronic) Atherosclerotic heart disease of [place] coronary artery without angina pectoris (Chronic) PCI-JEAN CARLOS-CX 06/17/15 Hyperlipidemia (Chronic) Hospital Course and Treatment Imaging Results: Clinical Impression(s) from Imaging Studies Chest X-Ray 10/15/18 10:20 IMPRESSION: Borderline cardiomegaly. Electronically Signed: Rigo Liriano, at 11:38 EDT , Service support , Abdomen/Pelvis CT 10/15/18 11:40 IMPRESSION: Cholelithiasis with minimal inflammatory changes (correlate LFTs and possible right upper quadrant pain) Nonspecific perinephric fat stranding with nonobstructing renal stones (correlate urinalysis) Constipation Lingular segment 1 cm nodule, follow-up as per below: The Fleischner society pulmonary nodule recommendations are usually for follow-up and management of nodules smaller than 8 mm. Detected Incidentally at non-screening C Nodule size > 8 mm Fllow-up CTs at around 3, 9, and 24 [address], PET, and / or biopsy Electronically Signed: Wale Thorpe DO at 12:22 EDT Tel , Service support , Abdomen Ultrasound 10/15/18 13:26 IMPRESSION: Gallstones with pericholecystic fluid. No gallbladder wall thickening. The dredge pumper reports a negative sonographic Echevarria sign. Therefore, there are no definite sonographic findings of acute cholecystitis. If concern persists, consider further evaluation with a nuclear medicine hepatobiliary study. Fatty liver. Right renal cysts. Electronically Signed: Abundio Jones, at 18:40 EDT Tel , Service support , Renal Ultrasound 10/15/18 13:26 IMPRESSION: Simple cysts in the right kidney. Otherwise, unremarkable renal ultrasound. Electronically Signed: Abundio Jones, at 17:22 EDT Tel , Service support , Operations: None Procedures: None Summary of Care Provided: The patient is a 63 year old M presents with a syncope while at work. Having some abdominal pain that preceded that and then had a near syncopal episode. Patient was noted to be hypotensive and bradycardic and did have cutaneous pacing in the field. Brought to the emergency room and the cutaneous pacing was discontinued. Patient did receive IV fluids and blood pressure did improve and is other vital signs did improve as well. Patient did have some acute kidney injury with initial creatinine 1.72 that did improve to 1.3 with IV fluids. It is my assessment that the patient had a vasovagal syncopal episode due to some transient abdominal pain. Patient did have an ultrasound of his kidneys that was negative for any kidney stones and did have a right upper quadrant ultrasound as well that was negative for any acute cholecystitis. Patient does have a history of chronic right upper quadrant abdominal pain but did have a negative Echevarria sign sonographically. Discussed with the patient that this is likely a vasovagal type episode and unclear if this will ever happen again but patient advised to be does have symptoms similar to this in the in the future to take a break from what ever it is that he is doing. I did explain to the patient he needs to drink more fluids. Patient does endorse that he despises water. I explained to patient he needs to drink more fluids and were not some flavored water or some sugar-free beverage to keep him hydrated. Patient is a blood sugars are really high when he came in here but did receive sugary substance prior to him coming in by the nurse at his work. [] Patient Problems: Active and Suspected Problems (Last Reviewed 10/15/18 @ 12:47 by Wale Adamson DO) Syncope (Acute) - Physical Exam General: Alert, No apparent distress HEENT: Atraumatic, Normocephalic Oral: Moist Mucosa, No Gingival or Mucosal Lesions/ Ulcerations Neck: No Nodes, Thyroid Normal Size and Texture Lungs: Clear to auscultation, Normal air movement, No rhonchi, No wheeze Cardiovascular: Regular rate, Regular Rhythm, Normal S1, Normal S2, No murmurs Abdomen: Bowel Sounds Present, Soft, - - slight RUQ tenderness. Vital Signs Temp Pulse Resp BP Pulse Ox 36.7 C 78 16 164/89 H 96 10/16/18 08:52 10/16/18 08:52 10/16/18 08:52 10/16/18 08:52 10/16/18 08:52 Oxygen Flow Rate (L/min) 2 Oxygen Delivery Method Room Air Weight: 108.4 kg Body Mass Index (BMI) 35.2 Finger Stick Blood Glucose 490 Orthostatic Vital Signs Start: 10/15/18 15:45 Freq: q24h Status: Active Protocol: Activity Type Activity Date Activity User E-Sign Co-Sign Detail Recorded Client Recorded Date Recorded By Document 10/15/18 15:45 DS [id number] 10/15/18 15:55 DS 10/15/18 15:45 Orthostatic Vitals Standing -Blood Pressure (90/60-120/80) 136/68 H -Extremity Use Right Arm -Pulse Rate (60-100) 69 Sitting -Blood Pressure (90/60-120/80) 135/66 H -Extremity Use Right Arm -Pulse Rate (60-100) 70 Lying -Blood Pressure (90/60-120/80) 138/75 H -Extremity Use Right Arm -Pulse Rate (60-100) 66 Intake and Output for Last 24 Hours 10/14/18 10/15/18 10/16/18 23:59 23:59 23:59 Intake Total 348 / 348 1100 / 1100 Balance 348 / 348 1100 / 1100 Laboratory Tests Past 24 Hrs 10/15/18 10/15/18 10/15/18 10:25 14:05 14:50 Sodium Potassium Chloride Carbon Dioxide Anion Gap BUN Creatinine Estim Creat Clear Calc Est GFR (MDRD) Af Amer Est GFR (MDRD) Non-Af BUN/Creatinine Ratio Glucose Calcium Total Bilirubin 0.30 Direct Bilirubin 0.07 AST 12 L ALT 16 Alkaline Phosphatase 180 H Troponin I < 0.015 Total Protein 5.8 L Albumin 2.2 L Globulin 3.6 Urine Color Yellow Urine Clarity Clear Urine pH 6.0 Ur Specific [place] 1.010 Urine Protein 500 H Urine Glucose (UA) 1000 H Urine Ketones Negative Urine Occult Blood 25 H Urine Nitrite Negative Urine Bilirubin Negative Urine Urobilinogen Normal Ur Leukocyte Esterase Negative Urine RBC 0-5 SEEN Urine WBC 0-5 SEEN Ur Squamous Epith Cells 0-5 SEEN Urine Bacteria 0 SEEN Urine Mucus 0 SEEN 10/15/18 10/16/18 16:55 05:25 Sodium 144 Potassium 3.8 Chloride 111 H Carbon Dioxide 24.0 Anion Gap 9 BUN 28 H Creatinine 1.32 H Estim Creat Clear Calc 57.28 Est GFR (MDRD) Af Amer 70 Est GFR (MDRD) Non-Af 58 L BUN/Creatinine Ratio 21.2 H Glucose 167 H Calcium 7.9 L Total Bilirubin Direct Bilirubin AST ALT Alkaline Phosphatase Troponin I < 0.015 Total Protein Albumin Globulin Urine Color Urine Clarity Urine pH Ur Specific [place] Urine Protein Urine Glucose (UA) Urine Ketones Urine Occult Blood Urine Nitrite Urine Bilirubin Urine Urobilinogen Ur Leukocyte Esterase Urine RBC Urine WBC Ur Squamous Epith Cells Urine Bacteria Urine Mucus POC Glucose 10/16/18 10/15/18 10/15/18 06:23 21:39 17:31 POC Glucose 160 H 243 H 338 H Discharge Diet: 1800 Calorie Control Diet Discharge Activity: Return to Normal Activity Call your doctor if you observe: Fainting spells Home Medications: Medications to take at Discharge Nitroglycerin (INPATIENT USE) [Nitrostat] 0.4 mg SUBLINGUAL Q5M PRN 06/30/15 Insulin Degludec [Tresiba Flextouch U-200] 48 unit SQ DAILY 02/20/17 Insulin Lispro [Humalog KwikPen] 10 unit SQ TID PRN PRN 02/20/17 clopidogrel 75 mg tablet 75 mg PO DAILY #90 tab 07/18/17 metformin 500 mg tablet 1,000 mg PO DAILY tab 09/04/17 losartan 50 mg tablet 50 mg PO DAILY 04/24/18 Atorvastatin Calcium [Lipitor] 80 mg PO QHS 07/08/18 Carvedilol 12.5 mg PO BID 07/08/18 Pantoprazole Sodium [Protonix] 40 mg PO QDAY 07/08/18 Aspirin E.C. [Ecotrin] 81 mg PO DAILY #0 07/09/18 apixaban 5 mg tablet 5 mg PO BID #60 tab 09/16/18 Primary Care Physician: Gene Louis MD [Primary Care Provider] - Within 2 Weeks Disposition: Home Minutes spent on discharge:: 26 Patient Condition:: Good Medical Necessity - Tobacco Use Smoking Status: Former smoker Meaningful Use Info Meaningful Use Diagnoses (Choose all that apply): None applicable Code Visit OBSV E&M: 05182 Observation care discharge
--- NOTE | 2018-10-16 12:05 | PCM.WORK.EX ---
Work/School Excuse Work/School Excuse for:: Patient Please excuse this person from:: Work From: 10/15/18 through: 10/16/18 - ok to return to work 10/17
[2018-10-16 12:06] LABS: Bedside Glucose 227 mg/dL (70-110)
== END 2018-10-16 11:58 | disposition home or self-care (01) ==
LOC: ED 11:55 → PCU 12:57
PROVIDERS: Emergency Provider Emergency Medicine; Family Provider Family Medicine; PCP Family Medicine
DX: R55 Syncope and collapse (principal); R06.02 Shortness of breath; I95.9 Hypotension, unspecified; R00.1 Bradycardia, unspecified; I25.2 Old myocardial infarction; I25.10 Atherosclerotic heart disease of native coronary artery without angina pectoris; E78.5 Hyperlipidemia, unspecified; I10 Essential (primary) hypertension; E11.65 Type 2 diabetes mellitus with hyperglycemia; E66.9 Obesity, unspecified; Z68.35 Body mass index [BMI] 35.0-35.9, adult; Z79.899 Other long term (current) drug therapy; Z79.4 Long term (current) use of insulin; Z79.01 Long term (current) use of anticoagulants; Z79.02 Long term (current) use of antithrombotics/antiplatelets; Z79.82 Long term (current) use of aspirin; Z71.3 Dietary counseling and surveillance; Z86.73 Personal history of transient ischemic attack (TIA), and cerebral infarction without residual deficits; Z86.718 Personal history of other venous thrombosis and embolism; Z87.891 Personal history of nicotine dependence
CPT/HCPCS: 36415; 71045; 74177; 76705; 76770; 80048; 80076; 81001; 82962; 84484; 85025; 87086; 87088; 93005; 96360; 96361; 99218; 99285; J7030; Q9967; G0378

== ENCOUNTER → 2018-12-24 | Outpatient (CLI) | payer OTHER, SELFPAY ==
[2018-09-16 08:02] VITALS: BMI 34.2
[2018-10-21 08:48] VITALS: BMI 33.0
--- NOTE | 2018-12-24 10:27 | NEURO_ITS ---
NCS and/or EMG Patient Report Ordering Doctor: Gene Louis DATE OF SERVICE: 12/24/18 This is a left upper extremity EMG and nerve conduction study performed on this 63-year-old male with left upper extremity symptoms however he had spells of inability to talk for 25 minutes associated with left upper extremity symptoms. Apparently he had an MRI of the brain and neck in [place] and and says that stroke was eliminated as a diagnostic possibility. Does have a history of headaches. He also is diabetic and apparently works in a very hot environment and wonders if this may have contributed to his symptoms. Left upper extremity sensory and motor nerve conduction studies performed. The median motor and sensory distal latencies are prolonged with preservation of amplitudes and mild reduction of conduction velocities. The ulnar motor and sensory and radial sensory responses are normal. The ulnar and median F wave latencies are normal. Left upper extremity needle electromyography was performed. Muscles evaluate include the first dorsal osseous, abductor pollicis brevis, brachioradialis, biceps, triceps and deltoid muscles. There is mild increased insertional activity in the left abductor pollicis brevis muscle however all other muscles tested demonstrated normal insertional activity with absence of pathologic spontaneous activity and normal motor units. Impression: This is a abnormal elective physiologic study of left upper extremity consistent with mild carpal tunnel syndrome at the left wrist however this does not appear to explain the above-noted symptoms. It is recommended the patient follow-up with neurology.
== END | disposition home or self-care (01) ==
LOC: PSN 07:05
PROVIDERS: Family Provider Family Medicine; PCP Family Medicine; Referring Provider Family Medicine; Visit Provider Family Medicine
DX: M54.12 Radiculopathy, cervical region (principal)
CPT/HCPCS: 95886; 95909

== ENCOUNTER → 2019-02-18 | Outpatient (CLI) | payer OTHER, SELFPAY ==
[2019-01-17 11:23] VITALS: BMI 33.0
[2019-02-18 10:23] LABS: Absolute Neutrophil Count 4.7 X10^3/uL (2.0-7.7); Basophil# 0.04 X10^3/uL; Basophil% 0.6 % (0-1); Eosinophil# 0.18 X10^3/uL; Eosinophils% 2.6 % (0-5); Hematocrit 37.7 % (40-54); Hemoglobin 12.4 g/dL (13.0-16.5); Lymphocyte % 18.5 % (19-41); Mean Corp Hgb Conc 32.9 g/dL (32-36); Mean Corpuscular Hgb 26.7 pg (27.0-32.0); Mean Corpuscular Volume 81.1 fL (80-94); Mean Platelet Vol. 11.1 fl (6.2-12.0); Monocyte# 0.75 X10^3/uL; Monocyte% 10.7 % (0-10); NRBC Flagged by Analyzer 0 % (0-5); Neutrophil # 4.74 X10^3/uL (2.7-7.7); Neutrophil % 67.2 % (47-70); Platelet Count 145 K/mm3 (150-450); RBC Distribution Width CV 13.2 % (11.6-14.6); RBC Distribution Width SD 38.1 fl (35.1-43.9); Red Blood Count 4.65 M/mm3 (4.6-6.2)
[2019-02-18 10:59] LABS: Vitamin D,25 Hydroxy 12.4 ng/mL (29.95-100.01)
[2019-02-18 11:18] LABS: Albumin, Serum 2.8 g/dL (3.2-5.0); BUN 37 mg/dL (7-18); BUN/Creat Ratio 22.2 RATIO (10-20); Creatinine, Serum 1.67 mg/dL (0.70-1.30); EST Glomerular Filtration Rate 44 mL/min (>60); Est Glom Filt Rate - Afr Amer 54 mL/min (>60); Glucose 384 mg/dL (74-106); Protein, Total 6.7 g/dL (6.4-8.2)
[2019-02-18 11:19] LABS: ALB/GLOB Ratio 0.7 RATIO (0.9-2.4); AST(SGOT) 26 U/L (15-37); Alanine Aminotransfer ALT/SGPT 30 U/L (16-61); Alkaline Phosphatase 172 U/L (45-117); Anion Gap 9 (5-15); Calcium,Total 8.8 mg/dL (8.5-10.1); Chloride 104 mmol/L (98-107); Cholesterol 158 mg/dL (200); Globulin 3.9 g/dL (2.2-4.2); High Density Lipoprotein 34 mg/dL; Potassium 4.7 mmol/L (3.5-5.1); Protein, Urine (Random) 544.7 mg/dL (<11.9); Protein:Creat Ratio 8342 mg/g CRE (0-200); Sodium Level 139 mmol/L (136-145); T4 Free Direct 1.06 ng/dL (0.76-1.46); Thyroid Stim Hormone (TSH) 2.23 uIU/mL (0.358-3.74); Triglycerides 363 mg/dL; Very Low Density Lipoprotein 73 mg/dL (5-40)
[2019-02-19 09:59] LABS: Ferritin 117 ng/mL (26-388); Iron 61 ug/dL (65-175); Iron Binding Capacity,Total 275 ug/dL (250-450); PERCENT IRON SATURATION 22.2 % (15.0-55.0)
[2019-02-19 10:07] LABS: Vitamin B12 427 pg/mL (211-911)
[2019-02-21 11:09] LABS: Anti-Thyroglobulin AB < 1.0 IU/mL (0.0-0.9); Thyroglobulin, Serum Qt. 9.4 ng/mL (1.4-29.2); Thyroid Peroxidase AB 11 IU/mL (0-34)
== END | disposition home or self-care (01) ==
LOC: MFPLAB 08:42
PROVIDERS: Family Provider Family Medicine; PCP Family Medicine; Referring Provider Family Medicine; Visit Provider Family Medicine
DX: E55.9 Vitamin D deficiency, unspecified (principal); E01.0 Iodine-deficiency related diffuse (endemic) goiter; I12.9 Hypertensive chronic kidney disease with stage 1 through stage 4 chronic kidney disease, or unspecified chronic kidney disease; N18.3 Chronic kidney disease, stage 3 (moderate); E11.22 Type 2 diabetes mellitus with diabetic chronic kidney disease; D64.9 Anemia, unspecified
CPT/HCPCS: 36415; 80053; 80061; 82043; 82306; 82570; 82607; 82728; 83540; 83550; 84156; 84432; 84439; 84443; 85025; 86376; 86800

== ENCOUNTER → 2019-03-03 | Outpatient (CLI) | payer OTHER, SELFPAY ==
[2019-01-17 11:23] VITALS: BMI 33.0
--- NOTE | 2019-03-03 07:24 | CT_ITS ---
STUDY: CT CHEST WITHOUT CONTRAST REASON FOR EXAM: Male, 63 years old. Pulmonary nodule RADIATION DOSAGE (If Supplied By Facility): CTDIvol = ( 19.93 ) mGy, DLP = ( 712.34 ) mGycm TECHNIQUE: Transaxial imaging was performed without the administration of intravenous contrast material. Coronal and sagittal reformatted images were created. Individualized dose optimization techniques were used for this CT. COMPARISON: None FINDINGS: There is a 0.8 x 0.8 cm nodule in the lingula (image 68 series 4). There is a 0.6 x 0.5 cm nodule in the right middle lobe (image 60 series 4). There is linear atelectasis in the right lower lobe. There are no pulmonary infiltrates or pleural effusions. There is no pneumothorax. The heart and pericardium are within normal limits. There are coronary artery calcifications. There is no thoracic lymphadenopathy. There is no evidence of thoracic aortic aneurysm. Images through the upper abdomen demonstrate gallstones. There are no destructive osseous lesions. There are degenerative changes noted in the spine. CT/Chest without Contrast IMPRESSION: 2 pulmonary nodules, measuring 8 mm in the lingula and 6 mm in the right middle lobe. Comparison with any prior examinations is recommended. If no prior CTs are available, a follow-up CT in 3-6 months is recommended. Alternatively, further evaluation with PET CT can be considered for the larger nodule. Coronary artery disease. Gallstones. Electronically Signed: Abundio Jones, at 17:11 EDT Tel , Service support ,
--- NOTE | 2019-03-03 07:32 | US_ITS ---
STUDY: THYROID ULTRASOUND REASON FOR EXAM: Male, 63 years old. Thyromegaly TECHNIQUE: Ultrasound evaluation of the thyroid was performed with real-time and static lama-scale imaging. COMPARISON: None. FINDINGS: RIGHT LOBE: The right lobe of the thyroid gland measures 5.7 x 2.6 x 2.6 cm. There is a homogeneous echotexture. There are no demonstrated solid, cystic or complex lesions. LEFT LOBE: The left lobe of the thyroid gland measures 5.2 x 2.4 x 2.4 cm. There is a homogeneous echotexture. 5 mm round isoechoic nodule in the anterior left lobe consistent with a tiny adenoma. Another 5 mm hypoechoic nodule with shadowing consistent with a calcification or adenoma in the left lobe. ISTHMUS: The isthmus measures 6 cm thick. . 0.5 x 1.6 cm oval hypoechoic lymph node lateral to the left lobe of the thyroid gland corresponding to palpable abnormality. US/Thyroid IMPRESSION: 1. 2 small adenomas the left lobe of the thyroid gland. Overall normal sized gland. 2. Small normal lymph node lateral to the left lobe of thyroid gland corresponding to the palpable abnormality. Electronically Signed: Kraig Barros MD at 8:47 EDT Tel , Service support ,
--- NOTE | 2019-03-03 09:01 | NM_ITS ---
CLINICAL: 63-year-old diabetic male with reported history of abdominal pain. SEMI-SOLID PHASE 99m Tc SULFUR COLLOID GASTRIC EMPTYING STUDY COMPARISON: CT of the abdomen-pelvis report 10/15/2018 FINDINGS: The patient was administered 1.0 mCi of 99m Tc sulfur colloid mixed with oatmeal and consumed per os. Image acquisitions in the anterior-posterior projections for a total of 60 minutes. There is prompt visualization of the stomach. There is no gastroesophageal reflux identified. The T1/2 linear fit was calculated to be 30.53 minutes, (Normal: 12-56 minutes). NM/Gastric Emptying Study IMPRESSION: 1. NORMAL 99m Tc sulfur colloid semi-solid phase (oatmeal) gastric emptying imaging examination. A. There is normal and preserved semi-solid phase gastric emptying compared to normal controls. (Fermin et al, J Nucl Med Tech 38: 186, 2010). Electronically Signed: Kraig Clemente DO at 22:47 EDT Tel , Service support ,
== END | disposition home or self-care (01) ==
LOC: CT 07:22
PROVIDERS: Family Provider Family Medicine; PCP Family Medicine; Referring Provider Family Medicine; Visit Provider Family Medicine
DX: R91.1 Solitary pulmonary nodule (principal); E11.65 Type 2 diabetes mellitus with hyperglycemia; E01.0 Iodine-deficiency related diffuse (endemic) goiter
CPT/HCPCS: 71250; 76536; 78264; A9541

== ENCOUNTER → 2019-03-13 08:29 | Outpatient (CLI) | payer OTHER, SELFPAY ==
[2019-01-17 11:23] VITALS: BMI 33.0
[2019-03-13 10:10] LABS: ALB/GLOB Ratio 0.7 RATIO (0.9-2.4); AST(SGOT) 15 U/L (15-37); Alanine Aminotransfer ALT/SGPT 21 U/L (16-61); Albumin, Serum 2.8 g/dL (3.2-5.0); Alkaline Phosphatase 182 U/L (45-117); Anion Gap 5 (5-15); BUN 33 mg/dL (7-18); BUN/Creat Ratio 20.9 RATIO (10-20); Calcium,Total 8.5 mg/dL (8.5-10.1); Chloride 104 mmol/L (98-107); Creatinine, Serum 1.58 mg/dL (0.70-1.30); EST Glomerular Filtration Rate 47 mL/min (>60); Est Glom Filt Rate - Afr Amer 57 mL/min (>60); GGTP 21 U/L (15-85); Globulin 4.1 g/dL (2.2-4.2); Glucose 333 mg/dL (74-106); Potassium 4.3 mmol/L (3.5-5.1); Protein, Total 6.9 g/dL (6.4-8.2); Sodium Level 137 mmol/L (136-145)
== END ==
PROVIDERS: Family Provider Family Medicine; PCP Family Medicine; Referring Provider Family Medicine; Visit Provider Family Medicine
DX: R74.8 Abnormal levels of other serum enzymes (principal)
CPT/HCPCS: 36415; 80053; 82977

== ENCOUNTER 2019-03-13 11:30 | Outpatient (RCR) | payer OTHER, SELFPAY ==
[2019-01-17 11:23] VITALS: BMI 33.0
--- NOTE | 2019-02-27 16:41 | HP.OTCOM_ITS ---
OT Communication Note 02/27/[address] Gene Miller MD Estuardo arrived for functional capacity evaluation on this date of 02/27/19. This assessment was not finished due to hid blood pressure being consistently high with multiple methods of measurement. It is not recommended that this type of assessment is completed for blood pressure over 160/100 mmHg due to the physical exertion that is required. Completed all background and basic assessments of range of motion, sensation testing, strength testing, and some balance testing. The reason the the therapists discontinued the session is as follows based on blood pressure measurements: At start of session around 14:00 p.m. prior to complete any physical exertion tasks and he has sat in chair for at least 15 minutes prior to tasking: blood pressure: omron wrist cuff on right wrist: 213/89 mmHg; [employer] blood pressure automatic cuff on left arm: 187/108 mmHg; manual cuff on right arm: 220/140 mmHg, manual cuff after break 165/105 mmHg ---All were high prior to any physical exertion. OT had another therapist double check and the physical therapist measurement of 165/105 was also noted and was high reading. Completed at least an hour and half into session around 15:30 after completed standing and very basic tasks. No tasks completed that were physial exertion was required: - Blood Pressure: Omron wrist cuff of right arm: 223/108 mmHg, [employer] blood pressure automatic cuff left arm: 182/100 mmHg; manual cuff on right arm: 164/91 mmHg- did have 3x cups of coffee and diet coke. He noted that is baseline for caffeine consumption. Around 16:00 after minimal walking tasks he noted when completing balance testing, he ?was starting to feel a little woozy? post 01/28 tasks for functional gait assessment. Blood pressure: automatic wrist omron wrist cuff: 214/85 mmHg Manually on left arm: 178/ 80 mmHg Sat and blood pressure take: Blood Pressure manual cuff left arm: 178/80 mmHg Due to his blood pressure being consistently high for all tasks it was not recommended to continue functional capacity evaluation as this time. A functional capacity evaluation is a very physical assessment and likely blood pressure would continue to rise due to physical exertion. At leaving appointment he was to go to PCP office and a handout on all blood pressure's taken was provided. He has scheduled further follow up in week- two weeks to complete assessment. It has been recommended he does not drink caffeine prior to assessment. Sincerely, Anabel Vogel, OTR/L Contact Information
--- NOTE | 2019-03-14 10:59 | HP.OTFCE_ITS ---
HP OT Functional Capacity Eval Date of Evaluation: 03/13/19 - Completed 2 day assessment 02/27/10 and 03/13/19 - Task Lift Floor (Occasional 1-33% of Day): 75 lbs Floor (Frequent 34-66% of Day): 20 lbs Floor (Constant 67-100% of Day): 8 lbs Floor PDL: Medium-Heavy Knee (Occasional 1-33% of Day): 55 lbs Knee (Frequent 34-66% of Day): 25 lbs Knee (Constant 67-100% of Day): 10 lbs Knee PDL: Medium Waist (Occasional 1-33% of Day): 45 lbs Waist (Frequent 34-66% of Day): 25 lbs Waist (Constant 67-100% of Day): 10 lbs Waist PDL: Light-Medium Shoulder (Occasional 1-33% of Day): 35 lbs Shoulder (Frequent 34-66% of Day): 20 lbs Shoulder (Constant 67-100% of Day): 8 lbs Shoulder PDL: Light-Medium Overhead (Occasional 1-33% of Day): 25 lbs Overhead (Frequent 34-66% of Day): 15 lbs Overhead (Constant 67-100% of Day): negligible Overhead PDL: Light Comments: Visual related concerns noted throughout evaluation that are being addressed by specialist. Additionally, there was inconsistencies noted with material handling tasks. See below for further details. - Work Activity/Posture Bending: Frequent Ability (34-66% of day) Squatting: Occasional Ability (1-33% of day) Kneeling: Occasional Ability (1-33% of day) Comments: 1-10% Reaching out: Frequent Ability (34-66% of day) Reaching up: Frequent Ability (34-66% of day) Sitting: Frequent Ability (34-66% of day) Walking: Frequent Ability (34-66% of day) Comments: 34-40% Standing: Frequent Ability (34-66% of day) - Reference Duration Sedentary Sedentary Light Light Light Medium Medium Medium Heavy Very Heavy Heavy Occasional (0-33% of day) Frequent (34-66% of day) Constant (67-100% of day) 10 # Negligible Negligible 15 # 8 # Negligible 20 # 10# Negli. 35 # 18 # 7 # 50 # 25 # 10 # 75 # 100 # >100 # 38 # 50 # >50 # 15 # 20 # >20 # - Patient Information Height: 1.73 m Weight:: 110.903 kg Hand Dominance: R BP (Medication Use/Usual Values per pt report): Yes - Medical History Medical History Including Restrictions: No medical restrictions provided by patient of doctor. - Diagnoses Diagnoses: Past medical history: Diabetes type 1, left knee pain, left torn meniscus, hypertension, coronary artery disease with stent placement in 2016, syncope, hyperlipidemia, myocardial infarction, transient ischemia attack. Current: Estuardo was referred for functional capacity evaluation due to L knee pain. He has been off work since September 2018 due to knee and increased comorbidities related to his general health have occurring. He noted he is seeing specialist for eyes as has been exhibit loss of vision secondary to diabetic retinopathy. He is to have upcoming procedure in March to promote the hopeful return of vision as well as maintain his current vision ability. - Symptoms Symptoms: Estuardo noted that main symptom is pain and weakness of left knee with occasional swelling. He noted that he received cortisone injection post operation in September 2018 while still receiving physical therapy services and noted that ?shot seemed to make knee worse?. He has since had increased aching in left knee that is consistent and noted 'weakness and stiffness? all occurring in left knee. Noted pain typically is dull ache but there are occasional sharp shooting pains. - Pain Pain: Estuardo noted pain is constantly a 'dull ache'. He noted this occurred after cortisone injection. He noted that ache is always present with symptoms of weakness. He noted that he is not on pain management program or taking any pain medications at this time. Toya Pain Questionnaire is a self-report pain assessment to determine a patient?s accurate psychodynamics for accurate pain rating. A score of 30 or high indicates poor psychodynamics and the greater probability of decreased accuracy with accurate pain reporting. Day 1: Toya: 31. Due to blood pressure rising to unsafe conditions, he was sent to his physician and did not completed post Toya due to lack of actual physical exertion type of assessment as well as need to be seen by physician. Day 2: Pre- Toya: 20. Post Toya: 19. Some discrepancies noted between day one and day two. Pain reporting likely unreliable as not no change or improvement of pain between first and second days. Fear Avoidance Questionnaire (FAQ) is a client self-report assessment for 18-64+ that has shown to be reliable and valid for determining increased fear with movements. A score of 96 or higher indicates increased fear avoidance behaviors. FAQ Pre-testin. -Fear avoidance belief about work (items 6,7,9,10,11,12,15): 29. -Fear avoidance belief about physical activity (items 2,3,4,5):16. FAQ Day 2 pre- testin. -Fear avoidance belief about work (items 6,7,9,10,11,12,15): 42. -Fear avoidance belief about physical activity (items 2,3,4,5):21. 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 He noted he was required to work 12 hour shifts with two 30 minute breaks. He noted that he was on feet frequently during shift as well as with frequent lifting of 23 lbs. He noted job also included constant walking and dynamic tasks. - Behavioral Behavioral: Some guarding behaviors observed due to what appears to be lack of vision. He noted he is getting bilateral eyes ?drained? by specialist in March. He is able to complete walking tasks without assistance or assistive device. He does require assistance with normal sized print for paper related subject assessments in which the therapist read them aloud to him and he provided the answer. General discrepancies were noted through evaluation with reporting of pain but lack of heart rate to reflect pain being described. He generally exhibits slower speed due to limited vision with mobility tasks which was consistent throughout evaluation. - ADLS ADLS: Estuardo lives independently in an apartment that was refurbished from barn. His son lives in house. He noted one step into apartment with no handrails. He is independent with all self care tasks, cooking, cleaning, and general house maintence. - Physical Examination Physical Examination: The purpose of this functional capacity evaluation (FCE) was to determine Estuardo?s physical ability. This FCE was performed in order to helper teacher in the determination of his physical ability. Aerobic limiting factor: 85% of max adjust HR= (220-age) *.85= 133 bpm. Calculated max weight: 60% of weight= 146 lbs. Day 1: Beginning Diagnostics: - blood pressure: omron wrist cuff (right wrist) 213/89 mmHg; greater goods blood pressure automatic cuff (left arm) 187/108 mmHg; manual cuff (right arm) 220/140 mmHg, manual cuff after break 165/105 mmHg ---All were high prior to any physical exertion. - heart rate: 78 bpm. - oxygen at room temperature: 96%. Due to consistently high blood pressure the assessment was discontinued, and he was to get see primary care physician. Day 2: Estuardo noted he has had blood pressure medications switched and is doing better. He noted he was at doctor?s office this morning where he had blood pressure completed and noted it was higher but not abnormal and was ranging around 140. Beginning Diagnostics: Blood pressure: taken manually 145/63 mmHg. Heart rate: 78 bpm. Oxygen: 97% ROM: Range of motion measurements: Knee: - L 0- 96. - R 0-107 Strength: Strength measurements completed with use of manual muscle testing and short arm access of dynamometer. Results are as follows: Upper Body: Shoulder flexion: -Dynamometer: R 17.7 , L 19.5. Shoulder extension: -Dynamometer: R 21.6 , L 21.7. Shoulder abduction: -Dynamometer: R 14.4 , L 13.5. All completed at distal end points into wall/small desk from seated position. Elbow flexion: -Dynamometer: R 39.8 , L 44.2 lbs. Elbow extension: -Dynamometer: R 25.9 , L 26.5 lbs. completed at distal test point. Lower Body: Hip flexion: -Dynamometer: R 26 , L 26.7 bs. Hip adduction: -Dynamometer: R 20.3 , L 16.1. Hip abduction: -Dynamometer: R 20.9 , L 23.9. Knee Flexion: -Dynamometer: R 36.3 , L 33.6. Knee extension: -Dynamometer: R 29.5 , L 17.9 lbs. Plantarflexion: -Dynamometer: R 19.4 , L 25.3 lbs. Dorsiflexion: -Dynamometer: R 30.6 , L 25.3 lbs- pain in knee. Completed lower extremity strength testing holding dynamometers manually and completed testing at distal test locations. Right Secondary Education Professor Strength Average: 70.66 Left Secondary Education Professor Strength Average: 75.66 Right Lateral Pinch Average: 16.33 Right Lateral Pinch Percentile: 25th Left Lateral Pinch Average: 16.00 Left Lateral Pinch Percentile: ABOVE 25th but below 50th Right Tripod Pinch Average: 12.33 Right Tripod Pinch Percentile: below 10th Left Tripod Pinch Average: 13.00 Left Tripod Pinch Percentile: 25th Comments: Five Span Secondary Education Professor testing on Dynamometer: Position 1: R 60 , L 58. Position 2: R 75 , L 79. Position 3: R 75 , L 66. Position 4: R 63 , L 55. Position 5: R 57 , L 45. A coefficient of variation greater than 15 % indicated decreased consistency of effort. Coefficient of variation: R 13%, L 21%. Consistency of Effort: inconsistent on Left Sensation: Sensation testing completed on bilateral feet with monofilament touch test. A score of normal on touch test is 2.83 and within normal range with just some discrepancies for light touch is between 3.22-3.61. The higher the number in more complications related to patient?s ability to perceive touch related sensory stimuli. R hand: Thumb 3.84 ,2nd 3.22 , 3rd 3.84 , 4th 3.84 , 5th 3.84. L hand: Thumb 3.61 ,2nd 3.22 , 3rd 2.83 , 4th 2.83 , 5th 3.22. 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 Fine Motor: Completed the Purdue Pegboard test to further determine the patient?s ability to complete 2-3 step tasks, assess fine motor control and general dexterity needed to complete assembly like work. The results are as follows: Right Hand: 8. -Percentile: below 1st. Left Hand: 7. -Percentile: below 1st. Both Hands: 8. -Percentile: 2nd. R+ L+ Both: 23. -percentile: below 1st. Assembly: 3. -percentile: below 1st. Noted this is tough. Table set at 34.5 inches from ground. Observed to spill out pieces due to what appeared to be poor eye sight. Able to locate pieces but decreased localization of pieces to designated area. Balance: Blood pressure prior to starting further movement-based tasks: - Blood Pressure: Omron wrist cuff (right arm): 223/108 mmHg, greater goods blood pressure automatic cuff (left arm) 182/100 mmHg; manual cuff (right arm) 164/91 mmHg- did have 3x cups of coffee and diet coke. He noted that is baseline. Functional reach test is used to determine static balance in patients. A score of 15 is normal and less than 10 increases risk of falling. A score of 6 or less significantly increases a patient?s risk of falling. [place] 1: 12.5. [place] 2: 11. [place] 3: 16.5. Average: 13. Blood Pressure manual cuff left arm: 166/100 mmHg. Functional Gait Assessment (FGA) is a dynamic balance test to determine vestibular functioning and general dynamic balance ability of patient 18-65+. This assessment can be used with clients of various backgrounds to determine functional dynamic balance needed to complete every day work related tasks. 1.Gait Level Surface:1. 2.Change in Gait Speed: 1. 3.Gait with horizontal head turns: 2. 4.Gait with vertical head turns: 1. 5.Gait and pivot turn: 2. 6.Step over obstacle:1. 7.Gait with narrow base of support: 0. 8.Gait with eyes closed: 1. 9.Ambulating Backwards: 1. 10.Steps: 2. Total Score: 12 /maximum score 30. Completed dynamic balance testing and is below two standard deviations compared to performance of same- aged peer related age group. Day 1: Blood pressure post all but stairs. Stairs excluded at time of blood pressure with automatic wrist cuff. Blood pressure automatic wrist Omron wrist cuff: 214/85 mmHg. Manually on left arm: 178/ 80 mmHg. Day 2: Stairs completed day two and blood pressure more stable. Take manually on left arm 145/63 mmHg. - Non Material Handling Activities Bending: Heart rate prior to beginning with use of pulse oximeter: 77 bpm. 3x, 10x in 23 seconds, and 10x faster in 17 seconds. Completed with good body mechanics. Able to complete equal weightbearing into bilateral lower extremities. Slight compensation with light increased thoracic flexion during bending tasks. Completed full bend with no mechanical deficits observed during t ask. Increase in heart rate but no change or pain behaviors to indicate distress. Heart rate posttest with use of pulse oximeter: 87 bpm. Perceived pain: 5/10 Squatting: Heart rate prior to beginning with use of pulse oximeter: 88 bpm. 3x, 10x in 18 seconds, and 10x faster in 16 seconds. Completed with good body mechanics. Some guarding behaviors noted during task. No increase in pain behaviors observed or increase in heart rate observed. He exhibits ability to complete 75% of full squat. Minimal change in speed. Heart rate posttest with use of pulse oximeter: 95 bpm. Perceived pain: 5/10 Kneeling: Heart rate prior to beginning with use of pulse oximeter: 88 bpm. 3x. Completed three kneels with left lower extremity in front after told to complete strong leg in front. Completed with mechanical compensations of shoulder abduction with left upper extremity for balance. Completed 25% of full kneel. Heart rate posttest with use of pulse oximeter: 80 bpm. Perceived pain: 5/10 Reaching out/up: Heart rate prior to beginning with use of pulse oximeter: 79 bpm. 3x, 10x in 11 seconds, and 10x faster in 9 seconds. Completed good body mechanics and ability to complete full reaching ability with bilateral upper extremity. Equal weightbearing observed in bilateral lower extremities. Heart rate posttest with use of pulse oximeter: 82 bpm. Perceived pain: 5/10- left knee. Heart rate prior to beginning with use of pulse oximeter: 80 bpm. 3x, 10x in 11 seconds, and 10x faster in 9 seconds. Completed with full reach to bilateral upper extremities with ability to completed equal weightbearing into bilateral lower extremities. Completed with good body mechanics. Heart rate posttest with use of pulse oximeter: 80 bpm. Perceived pain: 5/10- in left knee Walking: Heart rate prior to beginning with use of pulse oximeter: 88 BPM. Completed walking 31 laps of physical therapy tobias that is 90 feet. He completed a total of 2790 feet. Completed without assistive device or need for direction. Therapist observed as Estuardo completed task and he was able to maneuver around fellow patients and general work place obstacles. Completed task on level surface. Heart rate posttest with use of pulse oximeter: 92 bpm. Perceived pain: 6/10 Standing: Able to complete 10 minutes of consistent standing for day 1 evaluation. He was able to complete 35 minutes of consecutive standing on day 2 of evaluation during repetitive and material handling activities. Exhibits minimal weight shifting and is able to correct as needed when cued to not lean on items. Completed leaning 3x but often observed to weight shift equally into bilateral lower extremities. Sitting: Able to complete sitting for 30-40 minutes during background and intake of general information. Does not consistently exhibit need to weight shift consistently. Climbing Stairs: Heart rate prior to beginning with use of pulse oximeter: 76 bpm. Completed 10 stairs with alternating foot pattern. No need for handrail use on way up but did need to use handrail to left side on the way down. Vision deficits limiting balance and stair completion at this time as often exhibits guarding and cautious behaviors. Heart rate posttest with use of pulse oximeter: 98 bpm. Perceived pain: 5/10 - Dynamic Occasional Lifting Capacity Floor Lift: Heart rate prior to beginning with use of pulse oximeter: 88 bpm. Max weight: 85 lbs. Occasional Liftinx 75 lbs. Frequent liftinx 40 lbs. Completed lift from floor. Completed with increased grimace on face and fair body mechanics. With increased exertion-based behaviors of grimace and grunting his heart rate did not reflect the exertion. Inconsistencies noted with behaviors and performance. . Heart rate posttest with use of pulse oximeter: 90 bpm. Perceived pain: 5/10 Knee Lift: Heart rate prior to beginning with use of pulse oximeter: 90 bpm. Max weight: 80 lbs. Occasional Liftinx 55 lbs. Frequent liftinx 25 lbs. Completed with ability to complete at medium work level. Completed with fair body mechanics. Increased exertion behaviors noted but not reflective in heart rate. Additionally, went from lifting 80 lbs and when weight reduce to 70 lbs not he was unable to complete. Able to complete 55 lbs lift but inconsistencies noted in performance. Heart rate posttest with use of pulse oximeter: 92 bpm. Perceived pain: 6/10 Waist Lift: Heart rate prior to beginning with use of pulse oximeter: 90. Max weight: 65 lbs. Occasional Liftinx 45 lbs. Frequent liftinx 25 lbs. Body mechanics fair. Decreased weight in waist lift of power lift position as compared to floor lift and noted ?inability to lift box off of designated height?. Completed lift when weight decreased. Inconsistencies noted with lifting ability as he should be able to mechanically lift more in this position than compared to floor height. Additionally, he exhibits increased exertional behaviors of grunting and burrowing of brow line, but exertion and pain is not reflective in heart rate. Heart rate posttest with use of pulse oximeter: 87 bpm. Perceived pain: 6/10 Shoulder Lift: Heart rate prior to beginning with use of pulse oximeter: 96 bpm. Max weight: 50 lbs. Occasional Liftinx 35 lbs. Frequent liftinx 20 lbs. Completed with fair body mechanics. Increased cervical flexion and mild trunk extension noted with tasks to complete movement. Noted increased difficulty with task but exertion or perceived pain not reflective in heart rate. Inconsistencies noted. Heart rate posttest with use of pulse oximeter: 86 bpm. Perceived pain:6/10 Overhead Lift: Heart rate prior to beginning with use of pulse oximeter: 83 bpm. Max weight: 35 lbs. Occasional Liftinx 25 lbs. Frequent liftinx 15 lbs. Completed with fair body mechanics. Mild mechanical compensation of trunk extension noted with tasks to complete movement. Noted increased difficulty with task but exertion. Mild increase in heart rate was observed and he was very minimally winded at end of task. Heart rate posttest with use of pulse oximeter: 91 bpm. Perceived pain: 6/10 Carrying: Heart rate prior to beginning with use of pulse oximeter: 86 bpm. Occasional Liftinx 20 lbs. Frequent liftinx 10 lbs. Completed with fair body mechanics. With increased weight increased load offset to left lower extremity and mild antalgic gait observed. Equal weightbearing into bilateral lower extremity with 10 lbs or less. Heart rate posttest with use of pulse oximeter: 88 bpm. Perceived pain: 6/10. Blood pressure: 150/63 mmHg with Omron automatic wrist cuff post all material handling and repetitive movements tasks. Blood pressure: 119/58 mmHg manually Comments: Due to blood pressure raising to unsafe levels this functional capacity evaluation was completed in two days. Between the first and the second day, Estuardo went to the doctor to adjust blood pressure medications. The second day of the evaluation was when all the repetitive and material handling tasks were completed. Day 2: Ending Diagnostics: Blood pressure: 150/63 mmHg post all material handling and repetitive movements tasks. Blood pressure: 119/58 mmHg manually. Heart rate: 81 bpm. Oxygen at room saturation: 97%
--- NOTE | 2019-03-14 10:59 | HP.OTFCE.D ---
FCE D/C Summary - Discharge BRI HERNANDEZ was seen for a one time visit for an FCE on 02/27/19 and is discharged.
== END 2019-03-13 19:00 | disposition home or self-care (01) ==
LOC: OT 11:30
PROVIDERS: Family Provider Family Medicine; PCP Family Medicine; Visit Provider Family Medicine
DX: E11.9 Type 2 diabetes mellitus without complications (principal); S83.282D Other tear of lateral meniscus, current injury, left knee, subsequent encounter
CPT/HCPCS: 97750

== ENCOUNTER → 2019-03-24 | Outpatient (CLI) | payer OTHER, SELFPAY ==
[2019-01-17 11:23] VITALS: BMI 33.0
--- NOTE | 2019-03-24 09:34 | US_ITS ---
STUDY: ABDOMINAL ULTRASOUND - RIGHT UPPER QUADRANT REASON FOR VISIT: Male, 63 years old elevated alkaline phosphatase TECHNIQUE: Ultrasound evaluation of the right upper quadrant was performed with real-time and static lama-scale imaging. TECHNICAL QUALITY: Adequate. COMPARISON: CT abdomen and pelvis October 15, 2018 FINDINGS: Liver: The liver measures 18.9 cm. There is increased echogenicity consistent with fatty infiltration. The bile ducts are within normal limits. There is hepatic color flow. The direction of portal flow is hepatopetal. There is no demonstrated mass lesion. Gallbladder: Normal distended gallbladder. The gallbladder wall measures 3 mm. There is a negative sonographic Echevarria's sign. There is no pericholecystic fluid. There is small layering gallstones in the gallbladder measuring up to 1.3 cm. Common Bile Duct (C.B.D.): The common bile duct measures 5 mm. Pancreas: Scattered by bowel gas. Right Kidney: Normal size of the right kidney. The right kidney measures 14. x 6.2 x 6.8 cm. Normal renal cortex. The right cortex measures 1.8 cm. There is a right renal cyst measuring 8 x 7 x 7 mm. There is no right hydronephrosis. There is a echogenic foci measuring 8 x 6 x 5 mm which could represent a renal stone. US/Abdomen Limited IMPRESSION: Small right renal stones similar to prior study, no evidence of hydronephrosis. Small right renal cyst. Cholelithiasis. The sonographic Echevarria sign is described as negative. Enlarged fatty infiltrated liver. Electronically Signed: Binta Mccord MD at 22:29 EST Tel , Service support ,
== END | disposition home or self-care (01) ==
LOC: US 09:32
PROVIDERS: Family Provider Family Medicine; PCP Family Medicine; Referring Provider Family Medicine; Visit Provider Family Medicine
DX: R74.8 Abnormal levels of other serum enzymes (principal)
CPT/HCPCS: 76705

== ENCOUNTER 2019-05-08 17:50 | Observation (INO) | payer OTHER, SELFPAY ==
[2019-01-17 11:23] VITALS: BMI 33.0
[2019-05-08] VITALS (13 sets, daily range): BP systolic 194–224; BP diastolic 96–135; PULSE 67–82; RESP 12–18; TEMP 36.8–36.9; O2SAT 96–100; BMI 37.8; BMI 37.7
--- NOTE | 2019-05-08 17:52 | EKG12_ITS ---
Test Reason : NEURO Blood Pressure : / mmHG Vent. Rate : 073 BPM Atrial Rate : 073 BPM P-R Int : 198 ms QRS Dur : 108 ms QT Int : 416 ms P-R-T Axes : 044 -07 044 degrees QTc Int : 458 ms Normal sinus rhythm with sinus arrhythmia Normal ECG Confirmed by VANESSA CASILLAS, ROYAL ([id number]), medical editor MAYNOR TREVIZO ([id number]) on 05/12/2019 11:32:50 AM Referred By: FABI Confirmed By:ROYAL MENDEZ MD
--- NOTE | 2019-05-08 17:52 | CT_ITS ---
STUDY: CT BRAIN WITHOUT CONTRAST REASON FOR EXAM: Male, 63 years old. Slurred speech RADIATION DOSAGE (If Supplied By Facility): CTDIvol = ( 60.81 ) mGy, DLP = ( 1089.89 ) mGycm TECHNIQUE: Transaxial CT imaging of the brain was performed without administration of intravenous contrast material. Individualized dose optimization techniques were used for this CT. COMPARISON: 06/30/2015 FINDINGS: Normal soft tissue structures. Normal calvarium. There is mild cerebral atrophy with widening of the extra-axial spaces and ventricular dilatation. There are areas of decreased attenuation within the white matter tracts of the supratentorial brain, consistent with microvascular disease changes. Normal basal ganglia and thalami. Normal brainstem. Normal cerebellum. There is no intracranial hemorrhage. There are no findings of an acute ischemic infarction. There is atherosclerosis of the carotid siphons. Normal visualized paranasal sinuses. CT/Brain/Head without Contrast IMPRESSION: 1. No acute intracranial hemorrhage or mass effect. 2. Central parenchymal volume loss. White matter changes that are nonspecific but most commonly associated with chronic small vessel ischemic disease. N.B. : The above information has been verbally conveyed by Melquiades Mendoza MD (Brooks) to Radha [facility] on 05/08/2019 18:07:45 (ET). Electronically Signed: Melquiades Mendoza MD (Brooks) at 18:10 EST , Service support ,
--- NOTE | 2019-05-08 17:54 | CT_ITS ---
STUDY: CTA HEAD AND NECK WITH CONTRAST REASON FOR EXAM: Male, 63 years old. RADIATION DOSAGE (If Supplied By Facility): CTDIvol = ( 10.48 ) mGy, DLP = ( 467.73 ) mGycm TECHNIQUE: CT angiography was performed with a multi-detector CT scanner. Data acquisition was obtained from the skull base through the vertex following intravenous administration of 100cc isovue 370. MIP images were reconstructed from the axial data set. Post-processing of the angiographic images was performed, with multiplanar reformation and 3D reconstruction. Degree of stenosis (when present) measured utilizing NASCET criteria. Individualized dose optimization techniques were used for this CT. COMPARISON: No relevant priors. FINDINGS: Normal bilateral petrous carotid arteries. There is calcified plaque formation of the right cavernous carotid artery, without a cross-sectional luminal stenosis. There is calcified plaque formation of the left cavernous carotid artery, without a cross-sectional luminal stenosis. Normal right A1 segments of the anterior cerebral artery. Normal left A1 segments of the anterior cerebral artery. Normal intact anterior communicating artery (ACOM). Normal bilateral A2 segments of the anterior cerebral arteries. Normal right M1 and M2 segments of the middle cerebral arteries, with a normal M1 bifurcation. Normal left M1 and M2 segments of the middle cerebral arteries, with a normal M1 bifurcation. Normal right posterior communicating artery (PCOM). There is non-visualization of the left posterior communicating artery (PCOM). Normal bilateral vertebral arteries. Normal basilar artery with a normal basilar bifurcation. The visualized bilateral superior cerebellar (SCA) arteries are normal. Normal bilateral P1, P2 and visualized P3 segments of the posterior cerebral arteries. There is no demonstrated aneurysm of the [place]. There is no demonstrated abnormality of the visualized brain. AORTIC ARCH: Normal visualized aortic arch. Normal origins of the brachiocephalic, left common carotid, and left subclavian arteries. RIGHT CAROTID ARTERIES: Normal right common carotid artery (CCA). There is mild atherosclerotic plaque formation with minimal narrowing of the right carotid bulb. Normal origin of the right internal carotid (ICA) artery without a hemodynamically significant stenosis. Normal visualized cervical portion of the right internal carotid artery. Normal origin of the right external carotid artery (ECA). LEFT CAROTID ARTERIES: Normal left common carotid artery (CCA). There is mild atherosclerotic plaque formation with minimal narrowing of the left carotid bulb. Normal origin of the left internal carotid (ICA) artery without a hemodynamically significant stenosis. Normal visualized cervical portion of the left internal carotid artery. Normal origin of the left external carotid artery (ECA). VERTEBRAL ARTERIES: Normal bilateral vertebral arteries. There are degenerative changes of the cervical spine. There are postinflammatory calcifications of the left palatine tonsil. CT/CTA Head AND Neck W/ Contrast IMPRESSION: 1. No large vessel occlusion. No intracranial aneurysm. 2. Minimal carotid bulb atherosclerosis with only minimal narrowing. No carotid artery dissection. N.B. : The above information has been verbally conveyed by Melquiades Mendoza MD (Brooks) to Rad[facility] on 05/08/2019 18:28:31 (ET). Electronically Signed: Melquiades Mendoza MD (Brooks) at 18:29 EST , Service support ,
--- NOTE | 2019-05-08 18:25 | ED.DCSUM_ITS ---
- ER Visit Summary Date of Service: 05/08/19 Chief Complaint: Slurred speech History of Present Illness: The patient is a 63 M presenting with sudden onset of slurred speech, left arm droop, not feeling well. This started at 5:10 PM. EMS was called. Per EMS patient had left arm droop, slurred speech. BGT 100. He started to improve in route to the hospital. Patient has history of previous CVA and is on Plavix. On arrival to the ED he was taken to CT scan. Physical Examination: Vitals are stable. Blood pressure 226/112. Patient is afebrile. Alert no acute distress. HEENT exam is unremarkable. Neck is supple. Lungs are clear and equal bilaterally. Heart is regular rate and rhythm. Abdomen is soft mild diffuse tenderness with no rebound or guarding PGT 100 Extremities are unremarkable. Skin is warm and dry. No focal neurologic deficit. NIH 0 Remainder of exam is unremarkable. Emergency Department Course and Treatment: Noncontrast head CT was unremarkable. Discussed with [facility] neurology. Patient is not a TPA candidate at this time. CTA head and neck shows no large vessel occlusion. No intracranial aneurysm. Minimal carotid bulb atherosclerosis with only minimal narrowing. No carotid artery dissection. CBC normal except hemoglobin 12.8. Chemistry shows BUN 36, creatinine 1.92. Troponin 0.033. EKG is sinus rhythm rate of 73 with no acute ischemic changes. On reevaluation, patient's NIH is 0. He was given l abetalol IV. Repeat blood pressure 195/112. Chest xray stable, nonacute portable x-ray examination of the chest. Discussed with the hospitalist for admission. Disposition: Observation Impression: TIA This note was generated with iMemories dictation software. It may contain incorrect words, spelling, and punctuation that were not noted in review of the chart prior to signing ED Disposition - Plan for ED Patient: Referrals: Gene Miller MD [Primary Care Provider] -
[2019-05-08 18:26] LABS: Absolute Lymphocyte Count 1.33 X10^3/uL (0.83-4.51); Basophil# 0.04 X10^3/uL; Basophil% 0.4 % (0-1); Eosinophil# 0.23 X10^3/uL; Eosinophils% 2.4 % (0-5); Hematocrit 37.5 % (40-54); Hemoglobin 12.8 g/dL (13.0-16.5); Lymphocyte # 1.33 X10^3/ul (4.0); Lymphocyte % 13.7 % (19-41); Mean Corp Hgb Conc 34.1 g/dL (32-36); Mean Corpuscular Hgb 27.6 pg (27.0-32.0); Mean Platelet Vol. 10.4 fl (6.2-12.0); Monocyte# 1.09 X10^3/uL; Monocyte% 11.2 % (0-10); NRBC Flagged by Analyzer 0 % (0-5); Neutrophil # 7.02 X10^3/uL (2.7-7.7); Platelet Count 203 K/mm3 (150-450); RBC Distribution Width CV 13.7 % (11.6-14.6); RBC Distribution Width SD 39.4 fl (35.1-43.9); Red Blood Count 4.63 M/mm3 (4.6-6.2); White Blood Count 9.7 K/mm3 (4.4-11.0)
[2019-05-08 18:44] LABS: Anion Gap 6 (5-15); BUN 36 mg/dL (7-18); BUN/Creat Ratio 18.8 RATIO (10-20); Calcium,Total 8.7 mg/dL (8.5-10.1); Chloride 108 mmol/L (98-107); Creatinine, Serum 1.92 mg/dL (0.70-1.30); EST Glomerular Filtration Rate 38 mL/min (>60); Est Glom Filt Rate - Afr Amer 46 mL/min (>60); Estimated Creatinine Clearance 40.66 ml/min; Glucose 104 mg/dL (74-106); Potassium 4.4 mmol/L (3.5-5.1); Sodium Level 140 mmol/L (136-145)
--- NOTE | 2019-05-08 18:50 | RAD_ITS ---
STUDY: X-RAY CHEST REASON FOR EXAM: Male, 63 years old. Slurred speech, left arm. TECHNIQUE: AP COMPARISON: 10/15/2018 FINDINGS: EKG leads project over the chest. The lungs are clear and expanded. There is no demonstrated pleural abnormality. Normal size heart. Normal mediastinum and lydia. Normal visualized pulmonary arteries. Normal visualized aortic arch and descending thoracic aorta. Normal visualized thoracic spine. Normal visualized ribs, clavicles, and shoulders. There is no demonstrated abnormality of the visualized soft tissue structures of the upper abdomen. RAD/Chest 1 View IMPRESSION: Stable, nonacute portable x-ray examination of the chest. Electronically Signed: Melquiades Mendoza MD (Brooks) at 19:22 EST , Service support ,
[2019-05-08 18:53] LABS: Partial Thromboplast Time 28.1 Seconds (24.1-36.2); Prothrombin Time (Protime)PT. 13.4 SECONDS (11.7-14.9)
--- NOTE | 2019-05-08 19:09 | ED.RN ---
per d/c [facility] d/t 4 negatives.
--- NOTE | 2019-05-08 19:37 | ED.RN ---
md aware of bp, no new orders at this time.
--- NOTE | 2019-05-08 19:38 | PCM.HP.STD ---
Problem List (1) Stroke-like symptoms Status: Acute (2) DVT of lower extremity (deep venous thrombosis) Status: Chronic Comment: left (3) Old inferior wall myocardial infarction Status: Chronic (4) Essential (primary) hypertension Status: Chronic (5) Atherosclerotic heart disease of [place] coronary artery without angina pectoris Status: Chronic Qualifiers: [place] vs. transplanted heart: [place] heart Qualified Code(s): I25.10 - Atherosclerotic heart disease of [place] coronary artery without angina pectoris Comment: PCI-JEAN CARLOS-CX 06/17/15 (6) Hyperlipidemia Status: Chronic Qualifiers: Hyperlipidemia type: pure hypercholesterolemia Qualified Code(s): E78.00 - Pure hypercholesterolemia, unspecified; E78.0 - Pure hypercholesterolemia (7) History of coronary artery stent placement Status: Chronic Comment: PCI-JEAN CARLOS-CX 06/17/15 History of Present Illness Date of Admission: 05/08/19 Chief Complaint: Slurry speech The patient is a 63 year old M with a significant history of hypertension; HLD; obesity; DVT; CAD status post stents on dual antiplatelet therapy; 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 His slurry speech lasted for about 20 minutes and had disappeared on the time of arrival to the emergency department. Stroke alert was called. Emergency department doctor discussed the case with tele-neurologist at [facility]. CT head and CTA head and neck was unremarkable. Per emergency department the tele-neurologist recommended an MRI of the brain. He reports weakness in all his extremities. Also he reports headache. Reportedly he had hemorrhage on his right eye and had surgery to evacuate the blood within the last 2 weeks. Past Medical History Past Medical History (Chronic Problems): Chronic Problems (Last Reviewed 05/08/19 @ 20:27 by Joe Montaño MD) DVT of lower extremity (deep venous thrombosis) (Chronic 09/2018) left Old inferior wall myocardial infarction (Chronic) History of coronary artery stent placement (Chronic 06/17/15) PCI-JEAN CARLOS-CX 06/17/15 Essential (primary) hypertension (Chronic) Atherosclerotic heart disease of [place] coronary artery without angina pectoris (Chronic) PCI-JEAN CARLOS-CX 06/17/15 Hyperlipidemia (Chronic) Medical History: Medical History (Last Reviewed 05/08/19 @ 20:27 by Joe Montaño MD) DVT of lower extremity (deep venous thrombosis) (Chronic) Onset Date: 09/2018 I82.409 left TIA (transient ischemic attack) (Inactive) Onset Date: 09/19/18 G45.9 Old inferior wall myocardial infarction (Chronic) I25.2 Essential (primary) hypertension (Chronic) I10 Atherosclerotic heart disease of [place] coronary artery without angina pectoris (Chronic) I25.10 PCI-JEAN CARLOS-CX 06/17/15 Hyperlipidemia (Chronic) E78.5 Obesity (BMI 30.0-34.9) E66.9 Tear of lateral meniscus of left knee S83.282A Tear of medial meniscus of left knee S83.242A Type 2 diabetes mellitus E11.9 Allergies escitalopram [From Lexapro] Allergy (Verified 10/15/18 10:49) Unknown sertraline [From Zoloft] Allergy (Verified 10/15/18 10:49) Unknown lisinopril Adverse Reaction (Severe, Verified 10/15/18 10:49) Cough Home Medications: Ambulatory Orders Medication Instructions Recorded Nitroglycerin (INPATIENT USE) 0.4 mg SUBLINGUAL Q5M PRN 06/30/15 [Nitrostat] Insulin Degludec [Tresiba 48 unit SQ DAILY 02/20/17 Flextouch U-200] Insulin Lispro [Humalog KwikPen] 10 unit SQ TID PRN PRN 02/20/17 clopidogrel 75 mg tablet 75 mg PO DAILY #90 tab 07/18/17 metformin 500 mg tablet 2,000 mg PO DAILY tab 09/04/17 Atorvastatin Calcium [Lipitor] 80 mg PO QHS 07/08/18 Pantoprazole Sodium [Protonix] 40 mg PO QDAY 07/08/18 Aspirin E.C. [Ecotrin] 81 mg PO DAILY #0 07/09/18 carvedilol 25 mg tablet 25 mg PO BID #180 tab 01/17/19 Losartan Potassium 100 mg PO DAILY 05/08/19 Surgical History: Surgical History (Last Reviewed 05/08/19 @ 21:00 by Joe Montaño MD) History of coronary artery stent placement (Chronic) Onset Date: 06/17/15 Z95.5 PCI-JEAN CARLOS-CX 06/17/15 H/O abdominal surgery Z98.890 repair spleen Surgical History: angioplasty, herniorrhaphy Lives: Alone Smoking Status: Never smoker - *Family History Maternal Family History: Family History (Last Reviewed 05/08/19 @ 20:28 by Joe Montaño MD) Father blood clot Sister CVA (cerebral vascular accident) Mother Diabetes History Items: Diabetes Paternal Family History: Family History (Last Reviewed 05/08/19 @ 20:28 by Joe Montaño MD) Father blood clot Sister CVA (cerebral vascular accident) Mother Diabetes History Items: - - dvt in leg Sibling Family History: Family History (Last Reviewed 05/08/19 @ 20:28 by Joe Montaño MD) Father blood clot Sister CVA (cerebral vascular accident) Mother Diabetes History Items: - - brother with cad, prostate cancer possible kidney or liver problem.sister with stroke Review of Systems Constitutional: Reports: Weakness. Denies: Chills, Fever, Weight Change HEENT: Denies: Head Aches, Sinus Congestion, Sinus Drainage Cardiovascular: Denies: Chest Pain, Palpitations Respiratory: Denies: Cough, Shortness of breath at rest, Sputum production Gastrointestinal: Denies: Abdominal Pain, Nausea, Vomiting Genitourinary: Denies: Dysuria Musculoskeletal: Denies: Joint Pain, Joint Tenderness Skin: Denies: Rash, Wounds Neurological: Reports: Slurred speech - Resolved, Headaches. Denies: Focal weakness, Numbness, Tingling Psychiatric: Denies: Anxiety, Depression, Homicidal Ideations, Suicidal Ideations Hematologic/ Lymphatic: Denies: Easy Bruising, Easy Bleeding VTE Information - Inpt Only VTE Present on Admission: No VTE Mechan Device Prophylaxis: None VTE Pharm Prophylaxis ordered?: Yes Patient Problems: Active and Suspected Problems (Last Reviewed 05/08/19 @ 20:27 by Joe Montaño MD) Stroke-like symptoms (Acute) - Physical Exam Vitals/I&O's: Vital Signs Temp Pulse Resp BP Pulse Ox 98.2 F 68 17 200/100 H 96 05/08/19 18:05 05/08/19 19:37 05/08/19 19:37 05/08/19 19:37 05/08/19 19:37 Oxygen Flow Rate (L/min) 2 Oxygen Delivery Method Nasal Cannula Weight: 119.5 kg Body Mass Index (BMI) 37.8 Finger Stick Blood Glucose 100 General: Alert, Oriented x3, Cooperative HEENT: Atraumatic, PERRLA, EOMI, Normocephalic, - - Injected conjunctiva of the right eye Neck: Supple, No JVD, Negative Carotid Bruits Lungs: Clear to auscultation, Normal air movement, No rhonchi, No wheeze, No rales Cardiovascular: Regular rate, Normal S1, Normal S2, No murmurs Abdomen: Bowel Sounds Present, Soft, Non Tender Extremities: No edema, Capillary Refill Less than 3 Seconds Skin: No rashes, No breakdown Musculoskeletal: No Tenderness to Palpation of Joints or Extremities Neurological: Cranial nerves II-XII grossly intact - Except that patient has blurred vision of the right eye (attributed to diabetes with retinal hemorrhage.), Deep Tendon Reflexes 2+/4 and Symmetrical, - - Blurry vision. Reduced range of motion of upper and lower left extremities. Strength in upper and lower left extremities 3 out of 5. Strength in upper and and lower right extremity is 5 out of 5. Mildly reduced range of motion of the right upper extremity with intact strength. Psych/Mental Status: Normal Affect, Appropriate Laboratory Results 05/08/19 18:10: WBC 9.7, RBC 4.63, Hgb 12.8 L, Hct 37.5 L, MCV 81.0, MCH 27.6, MCHC 34.1, RDW Std Deviation 39.4, RDW Coeff of Lina 13.7, Plt Count 203, MPV 10.4, Immature Gran % (Auto) 0.300, Neut % (Auto) 72.0 H, Lymph % (Auto) 13.7 L, Blanco % (Auto) 11.2 H, Eos % (Auto) 2.4, Baso % (Auto) 0.4, Absolute Neuts (auto) 7.0, Absolute Lymphs (auto) 1.33, Nucleated RBC % 0 05/08/19 18:10: PT Cancelled, INR Cancelled, APTT Cancelled 05/08/19 18:10: Sodium 140, Potassium 4.4, Chloride 108 H, Carbon Dioxide 26.0, Anion Gap 6, BUN 36 H, Creatinine 1.92 H, Estim Creat Clear Calc 40.66, Est GFR (MDRD) Af Amer 46 L, Est GFR (MDRD) Non-Af 38 L, BUN/Creatinine Ratio 18.8, Glucose 104, Calcium 8.7, Troponin I 0.033 05/08/19 18:38: PT 13.4, INR 1.0, APTT 28.1 Assessment/Plan All Active Problems (Last Reviewed 05/08/19 @ 20:27 by Joe Montaño MD) Stroke-like symptoms (Acute) Abrasion, left lower leg, initial encounter (Resolved) Contusion of left knee (Resolved) Contusion of lower leg, left (Resolved) History of small bowel obstruction (Resolved) Myocardial infarct (Resolved) history of traumatic pneumothorax (Resolved) The patient is a 63 year old M with a significant history of hypertension; HLD; obesity; DVT; CAD status post stents on dual antiplatelet therapy; 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 Strokelike symptoms CT of the head/CTA of head and neck did not show any acute pathology. Brain CT showed central pressure, volume loss. White matter changes that are nonspecific but most commonly associated with chronic small vessel ischemic disease. Head and neck CTA showed no large vessel occlusion. No intracranial aneurysm. Minimal carotid bulb atherosclerosis with only minimal narrowing. No carotid or aortic dissection. -Check Hba1c, Lipid level Physical therapy, occupational therapy and speech therapy to work with patient. N.p.o. until bedside swallow eval. Daily aspirin and Plavix continued. High intensity statin with atorvastatin continued Permissive hypertension. Control blood pressure with labetalol for systolic blood pressure of more than 220 or diastolic blood pressure of more than 120. -Permissive HTN for 24 hrs, chcf goal BP < 120/80 mmHg and goal Hba1c < 7% MRI brain and Echocardiogram ordered. CMP per Telemetry neurologist recommendations. ANGELIA on CKD stage III On presentation his creatinine was 1.92 BUN over creatinine is 18.8. Estimated baseline creatinine to be about 1.5 Gentle IV hydration. Avoid nephrotoxic's. On home losartan that has been held among other blood pressure medications. CMP in a.m. Hypertension On presentation his blood pressure was severely elevated. Likely secondary to strokelike symptoms. Permissive hypertension as above. Hold home blood pressure medications Diabetes mellitus with retinopathy On presentation his blood glucose was noted elevated. Patient is at risk of hypoglycemia. Would hold home basal and prandial insulin. Will put on correction scale insulin. Accu-Chek QA [facility]. A1c returned as 10.4. DVT Prophylaxis Subcutaneous Lovenox Code Visit OBSV E&M: [id number] Initial observation care L3
--- NOTE | 2019-05-08 20:19 | ECHOCS_ITS ---
Reason For Study: TIA/CVA Procedure This was a 2D Doppler, Color Flow transthoracic echocardiogram. The study was technically difficult. Contrast injection was performed. Exam performed portable in patient room. Left Ventricle Normal LV size. Moderate concentric left ventricular hypertrophy. Left ventricular systolic function is normal. Stage 1 diastolic dysfunction. No regional wall motion abnormalities noted. Right Ventricle Normal RV size. Atria The left atrium is mildly enlarged. Normal right atrium. Mitral Valve Normal mitral valve. Tricuspid Valve Normal tricuspid valve. Aortic Valve The aortic valve is not well visualized. Pulmonic Valve The pulmonic valve is not well visualized. Great Vessels Normal aortic root. Pericardium/Pleural No pericardial effusion. Medication Diluted definity 4.0ml given slow IV push to enhance endocardial definition. Previously negative bubble study. MMode/2D Measurements & Calculations LVIDd: 4.5 cm IVSd: 1.6 cm Ao root diam: 3.5 cm LVIDs: 3.4 cm LVPWd: 1.3 cm RVDd: 3.8 cm FS: 24.0 % LAV(MOD-bp): 69.8 ml LA A4 area: 21.6 cm2 LA dimension(2D): 4.1 cm LAV(MOD-bp) Indexed: 31.2 ml/m2 LAV(MOD-sp2): 66.4 ml LAV(MOD-sp4): 73.3 ml RA A4 area: 13.9 cm2 Time Measurements MV dec time: 0.21 sec Doppler Measurements & Calculations MV E max david: 73.7 cm/sec Lat Peak E' David: 3.6 cm/sec Med Peak E' David: 5.7 cm/sec MV A max david: 104.9 cm/sec E/E' lat: 20.4 E/E' med: 12.8 MV E/A: 0.70 Ao V2 max: 90.0 cm/sec LV V1 max: 74.1 cm/sec TR max david: 166.4 cm/sec Ao max P.2 mmHg LV V1 max P.2 mmHg TR max P.1 mmHg Interpretation Summary Normal LV size. Left ventricular systolic function is normal. Moderate concentric left ventricular hypertrophy. Stage 1 diastolic dysfunction. Contrast injection was performed. Ordering Physician: Joe Montaño Referring Physician: ALBERTO ROSALES Performed By: Belkis Ramirez, GOGO, RVT
[2019-05-08 20:57] LABS: Hemoglobin A1c 10.4 % (4.2-6.3)
[2019-05-08] MEDS: 0.9% Normal Saline 1,000 ML 100 ML IV (22:07)
[2019-05-08 22:21] LABS: Bedside Glucose 117 mg/dL (70-110)
[2019-05-09] VITALS (10 sets, daily range): BP systolic 155–172; BP diastolic 78–99; PULSE 68–77; RESP 15–16; TEMP 36.4–37; O2SAT 98–99; BMI 37.7
[2019-05-09 06:23] LABS: ALB/GLOB Ratio 0.6 RATIO (0.9-2.4); AST(SGOT) 24 U/L (15-37); Alanine Aminotransfer ALT/SGPT 20 U/L (16-61); Albumin, Serum 2.3 g/dL (3.2-5.0); Alkaline Phosphatase 113 U/L (45-117); Anion Gap 3 (5-15); BUN 28 mg/dL (7-18); BUN/Creat Ratio 17.2 RATIO (10-20); Calcium,Total 7.8 mg/dL (8.5-10.1); Chloride 111 mmol/L (98-107); Cholesterol 166 mg/dL (200); Creatinine, Serum 1.63 mg/dL (0.70-1.30); EST Glomerular Filtration Rate 46 mL/min (>60); Est Glom Filt Rate - Afr Amer 55 mL/min (>60); Estimated Creatinine Clearance 44.88 ml/min; Globulin 3.6 g/dL (2.2-4.2); Glucose 91 mg/dL (74-106); High Density Lipoprotein 33 mg/dL; Potassium 4.1 mmol/L (3.5-5.1); Protein, Total 5.9 g/dL (6.4-8.2); Sodium Level 142 mmol/L (136-145); Triglycerides 248 mg/dL; Very Low Density Lipoprotein 50 mg/dL (5-40)
[2019-05-09 06:26] LABS: Bedside Glucose 85 mg/dL (70-110)
[2019-05-09] MEDS: 0.9% Normal Saline 1,000 ML 100 ML IV (06:59)
[2019-05-09] MEDS: Pantoprazole Sodium 40 MG Tablet PO (10:45)
[2019-05-09] MEDS: Aspirin E.C. 81 MG Tablet PO (10:45)
[2019-05-09] MEDS: Clopidogrel Bisulfate 75 MG Tablet PO (10:45)
[2019-05-09] MEDS: Enoxaparin 40 MG/0.4 ML Syringe SC (10:45)
[2019-05-09] MEDS: Acetaminophen 325 MG Tablet 650 MG PO (10:56)
--- NOTE | 2019-05-09 11:28 | CASEMGMT ---
Per career information specialist, pt is not taking his blood sugar d/t difficulty seeing. This RN CM to room and pt states that he can see the glucometer reading fine but he has difficulty getting the blood on the strip. Advised pt to ask at [facility] for a glucometer that would be easier to get the blood on the strip and the pt asked about seeing an igniter assembler. Pt states that he asked his PCP about going to igniter assembler and PCP said that he could take care of pt's DM. Dr. Mcginnis aware, voices understanding and states pt should probably see igniter assembler. Pt voices no further questions/concerns/needs at this time. SStaten ALIREZA CM
--- NOTE | 2019-05-09 11:43 | DCINST_ITS ---
- Discharge Diagnoses Current Active Problems: Current Active and Chronic Problems (Last Reviewed 05/08/19 @ 20:27 by Joe Montaño MD) Stroke-like symptoms (Acute) You will use the following diet at home:: Calorie/Carbohydrate Controlled (specify 1200, 1400, etc) - 1800 yuki Your food should be the consistency of: Regular Your liquids should be the consistency of: Regular/Thin Discharge Activity: Return to Normal Activity Weight Bearing Status: Full weight bearing Allergies/Adverse Reactions: Allergies escitalopram [From Lexapro] Allergy (Verified 10/15/18 10:49) Unknown sertraline [From Zoloft] Allergy (Verified 10/15/18 10:49) Unknown lisinopril Adverse Reaction (Severe, Verified 10/15/18 10:49) Cough Medications to take at Discharge Nitroglycerin (INPATIENT USE) [Nitrostat] 0.4 mg SUBLINGUAL Q5M PRN 06/30/15 Insulin Degludec [Tresiba Flextouch U-200] 48 unit SQ DAILY 02/20/17 Insulin Lispro [Humalog KwikPen] 10 unit SQ TID PRN PRN 02/20/17 clopidogrel 75 mg tablet 75 mg PO DAILY #90 tab 07/18/17 metformin 500 mg tablet 2,000 mg PO DAILY tab 09/04/17 Atorvastatin Calcium [Lipitor] 80 mg PO QHS 07/08/18 Pantoprazole Sodium [Protonix] 40 mg PO QDAY 07/08/18 Aspirin E.C. [Ecotrin] 81 mg PO DAILY #0 07/09/18 carvedilol 25 mg tablet 25 mg PO BID #180 tab 01/17/19 Losartan Potassium 100 mg PO DAILY 05/08/19 Primary Care Physician: Gene Miller MD [Primary Care Provider] - Please follow up with your Primary Care Physician in: in 3 weeks Test Results: Test results from this visit will be discussed in further detail at your follow- up appointment, if applicable.
[2019-05-09] MEDS: Insulin Lispro 100 UNIT/ML INSULN.PEN SC (12:16)
[2019-05-09 12:26] LABS: Bedside Glucose 179 mg/dL (70-110)
--- NOTE | 2019-05-09 18:22 | DS.PCM_ITS ---
Discharge Date and Diagnosis Date of Admission: 05/08/19 Date of Discharge: 05/09/19 - Primary Discharge Diagnosis #1 TIA #2 coronary artery disease #3 essential hypertension - Secondary Discharge Diagnosis Chronic Problems (Last Reviewed 05/08/19 @ 20:27 by Joe Montaño MD) DVT of lower extremity (deep venous thrombosis) (Chronic 09/2018) left Old inferior wall myocardial infarction (Chronic) History of coronary artery stent placement (Chronic 06/17/15) PCI-JEAN CARLOS-CX 06/17/15 Essential (primary) hypertension (Chronic) Atherosclerotic heart disease of [place] coronary artery without angina pectoris (Chronic) PCI-JEAN CARLOS-CX 06/17/15 Hyperlipidemia (Chronic) Hospital Course and Treatment Imaging Results: 05/09/19 20:19 Brain without Contrast [MRI] Routine Operations: None Procedures: 2-D Echocardiogram Summary of Care Provided: The patient is a 63 year old M was seen in the emergency room at [facility] presenting with a sudden onset of slurred speech, per EMS the patient had left arm droop and slurred speech, his symptoms improved en route to the hospital. Patient had a history of previous CVA and was on Plavix and aspirin, stroke team was called and a CT of the head was obtained which was unremarkable. It was decided the patient was not a candidate for TPA, CTA of the chest and neck showed no large vessel occlusion. Patient's creatinine was elevated at 1.92, BUN was 36, EKG showed a sinus rhythm of 73 with no acute ischemic changes. On reevaluation in the emergency room, patient's NIH score was 0. Patient was placed in observation status on PCU, he underwent an MRI of the brain which showed no evidence of stroke, and patient declined PT services stating he was at his baseline. Patient underwent an echocardiogram which was unremarkable. On 05/09/2019, patient was seen and examined and felt to be in stable condition for discharge home: On examination he appeared in good health and spirits. Vital signs as documented. Skin warm and dry and without overt rashes. Neck without JVD. Lungs clear. Heart exam notable for regular rhythm, normal sounds and absence of murmurs, rubs or gallops. Abdomen unremarkable and without evidence of organomegaly, masses, or abdominal aortic enlargement. Extremities nonedematous. Neuro: Cranial nerves II through XII are grossly intact, no focal motor deficits were noted, sensation to light touch and pinprick intact. Psych: Patient is alert and oriented x3, he does not appear anxious or depressed - Physical Exam Vitals/I&O's: Vital Signs Temp Pulse Resp BP Pulse Ox 98.3 F 76 16 172/99 H 98 05/09/19 14:36 05/09/19 14:36 05/09/19 14:36 05/09/19 14:36 05/09/19 14:36 Oxygen Flow Rate (L/min) 2 Oxygen Delivery Method Room Air Weight: 112.5 kg Body Mass Index (BMI) 37.7 Finger Stick Blood Glucose 100 Intake and Output for Last 24 Hours 05/07/19 05/08/19 05/09/19 23:59 23:59 23:59 Intake Total 1126.67 / 1126.67 Balance 1126.67 / 1126.67 Laboratory Results 05/08/19 18:10: WBC 9.7, RBC 4.63, Hgb 12.8 L, Hct 37.5 L, MCV 81.0, MCH 27.6, MCHC 34.1, RDW Std Deviation 39.4, RDW Coeff of Lina 13.7, Plt Count 203, MPV 10.4, Immature Gran % (Auto) 0.300, Neut % (Auto) 72.0 H, Lymph % (Auto) 13.7 L, [place] % (Auto) 11.2 H, Eos % (Auto) 2.4, Baso % (Auto) 0.4, Absolute Neuts (auto) 7.0, Absolute Lymphs (auto) 1.33, Nucleated RBC % 0 05/08/19 18:10: PT Cancelled, INR Cancelled, APTT Cancelled 05/08/19 18:10: Sodium 140, Potassium 4.4, Chloride 108 H, Carbon Dioxide 26.0, Anion Gap 6, BUN 36 H, Creatinine 1.92 H, Estim Creat Clear Calc 40.66, Est GFR (MDRD) Af Amer 46 L, Est GFR (MDRD) Non-Af 38 L, BUN/Creatinine Ratio 18.8, Glucose 104, Calcium 8.7, Troponin I 0.033 05/08/19 18:10: Hemoglobin A1c 10.4 H 05/08/19 18:38: PT 13.4, INR 1.0, APTT 28.1 05/08/19 22:06: POC Glucose 117 H 05/09/19 05:41: Sodium 142, Potassium 4.1, Chloride 111 H, Carbon Dioxide 28.0, Anion Gap 3 L, BUN 28 H, Creatinine 1.63 H, Estim Creat Clear Calc 44.88, Est GFR (MDRD) Af Amer 55 L, Est GFR (MDRD) Non-Af 46 L, BUN/Creatinine Ratio 17.2, Glucose 91, Calcium 7.8 L, Total Bilirubin 0.40, AST 24, ALT 20, Alkaline Phosphatase 113, Total Protein 5.9 L, Albumin 2.3 L, Globulin 3.6, Alb umin/Globulin Ratio 0.6 L, Triglycerides 248 H, Cholesterol 166, LDL Cholesterol 83, VLDL Cholesterol 50 H, HDL Cholesterol 33 L 05/09/19 06:14: POC Glucose 85 05/09/19 12:07: POC Glucose 179 H Discharge Activity: Return to Normal Activity Weight Bearing Status: Full weight bearing Home Medications: Medications to take at Discharge Nitroglycerin (INPATIENT USE) [Nitrostat] 0.4 mg SUBLINGUAL Q5M PRN 06/30/15 Insulin Degludec [Tresiba Flextouch U-200] 48 unit SQ DAILY 02/20/17 Insulin Lispro [Humalog KwikPen] 10 unit SQ TID PRN PRN 02/20/17 clopidogrel 75 mg tablet 75 mg PO DAILY #90 tab 07/18/17 metformin 500 mg tablet 2,000 mg PO DAILY tab 09/04/17 Atorvastatin Calcium [Lipitor] 80 mg PO QHS 07/08/18 Pantoprazole Sodium [Protonix] 40 mg PO QDAY 07/08/18 Aspirin E.C. [Ecotrin] 81 mg PO DAILY #0 07/09/18 carvedilol 25 mg tablet 25 mg PO BID #180 tab 01/17/19 Losartan Potassium 100 mg PO DAILY 05/08/19 Primary Care Physician: Gene Miller MD [Primary Care Provider] - Please follow up with your Primary Care Physician in: in 3 weeks Disposition: Home Minutes spent on discharge:: 30 Patient Condition:: Stable Medical Necessity - Tobacco Use Smoking Status: Former smoker Tobacco Use: Cigars Meaningful Use Info Meaningful Use Diagnoses (Choose all that apply): None applicable Code Visit OBSV E&M: 95379 Observation care discharge
--- NOTE | 2019-05-09 20:19 | MRI_ITS ---
STUDY: MRI BRAIN WITHOUT CONTRAST REASON FOR EXAM: Male, 63 years old. Episode of slurred speech, left weakness. Prior CVA 2016 TECHNIQUE: Standardized multiplanar fat and water weighted pulse sequences were obtained. COMPARISON: To FINDINGS: There is mild cerebral atrophy with widening of the extra-axial spaces and ventricular dilatation. There are a limited number of small white matter hyperintensities, distributed throughout the deep white matter tracts of the cerebral hemispheres, consistent with mild chronic white matter ischemic changes. There is no evidence for recent intracranial ischemia or other cause of cytotoxic edema on diffusion weighted imaging (DWI). Normal T2* images of the brain without demonstrated susceptibility artifact. There is no demonstrated hemosiderin stain. Normal bilateral basal ganglia. Normal thalami. There is no extra-axial fluid accumulation. Normal flow voids within the major intracranial circulation suggesting patency by spin echo criteria. Normal sella turcica, pituitary gland, infundibular stalk, optic chiasm and hypothalamus. Normal tectal plate and pineal gland. Normal midbrain, cynthia and medulla. Normal cerebellum. Normal basal cisterns. Normal bilateral temporal bones. Normal bilateral internal auditory canals. No demonstrated orbital abnormality, within the constraints of a routine brain study. Normal visualized paranasal sinuses. Normal calvarium and skull base. Normal visualized soft tissue structures. Normal visualized upper cervical spine. MRI/Brain without Contrast IMPRESSION: Involutional changes of the brain, as described above. Electronically Signed: Kraig Barros MD at 9:42 EST Tel , Service support ,
== END 2019-05-09 11:44 | disposition home or self-care (01) ==
LOC: ED 18:26 → PCU 19:50
PROVIDERS: Admitting Provider Hospitalist; Emergency Provider Emergency Medicine; Family Provider Family Medicine; PCP Family Medicine; Visit Provider Internal Medicine
DX: G45.9 Transient cerebral ischemic attack, unspecified (principal); I25.10 Atherosclerotic heart disease of native coronary artery without angina pectoris; E78.5 Hyperlipidemia, unspecified; I25.2 Old myocardial infarction; R47.81 Slurred speech; E66.9 Obesity, unspecified; E11.319 Type 2 diabetes mellitus with unspecified diabetic retinopathy without macular edema; E11.22 Type 2 diabetes mellitus with diabetic chronic kidney disease; I12.9 Hypertensive chronic kidney disease with stage 1 through stage 4 chronic kidney disease, or unspecified chronic kidney disease; N18.3 Chronic kidney disease, stage 3 (moderate); N17.9 Acute kidney failure, unspecified; Z86.718 Personal history of other venous thrombosis and embolism; Z79.899 Other long term (current) drug therapy; Z79.4 Long term (current) use of insulin; Z79.02 Long term (current) use of antithrombotics/antiplatelets; Z79.82 Long term (current) use of aspirin; Z68.37 Body mass index [BMI] 37.0-37.9, adult; Z71.3 Dietary counseling and surveillance; Z95.5 Presence of coronary angioplasty implant and graft; Z87.891 Personal history of nicotine dependence
CPT/HCPCS: 36415; 70450; 70496; 70498; 70551; 71045; 80048; 80053; 80061; 82962; 83036; 84484; 85025; 85610; 85730; 92610; 93005; 93306; 96361; 96374; 97802; 99218; 99285; J7030; Q9957; Q9967; A4216; C8929; G0378

== ENCOUNTER 2019-10-27 21:52 | Inpatient (IN) | payer OTHER, SELFPAY ==
[2019-05-09 08:04] VITALS: BMI 37.7
[2019-10-27 21:56] VITALS: BP 193/98; PULSE 119; RESP 23; TEMP 39.1; O2SAT 97; BMI 40.0
[2019-10-27 22:01] VITALS: BP 193/98; BP 208/95; PULSE 119; RESP 23; TEMP 39.1; O2SAT 97
--- NOTE | 2019-10-27 22:38 | EKG12_ITS ---
Test Reason : DYSRHYTHMIA Blood Pressure : / mmHG Vent. Rate : 113 BPM Atrial Rate : 113 BPM P-R Int : 194 ms QRS Dur : 106 ms QT Int : 350 ms P-R-T Axes : 043 -08 060 degrees QTc Int : 480 ms Sinus tachycardia Otherwise normal ECG Confirmed by VANESSA CASILLAS, ROYAL ([id number]), movie editor SRIRAM JALLOH ([id number]) on 10/29/2019 9:14:30 AM Referred By: EAGLE Confirmed By:ROYAL MENDEZ MD
--- NOTE | 2019-10-27 22:38 | RAD_ITS ---
STUDY: X-RAY CHEST REASON FOR EXAM: Male, 64 years old. fever and amp; fatigue TECHNIQUE: Single AP portable view of the chest. COMPARISON: May 08, 2019 FINDINGS: Reidentification of crowding of bronchovascular structures in the bilateral lower lobes, right greater than left, without a definite area of consolidation seen. The remaining lung nicolas are clear. There is no demonstrated pleural abnormality. Normal size heart. Stable mediastinal and osseous structures. RAD/Chest 1 View (Portable) IMPRESSION: 1. Reidentification of crowding of bronchovascular structures in the bilateral lower lobes, right greater than left, without a definite area of consolidation seen. The remaining lung nicolas are clear. Electronically Signed: Wolf Fair MD at 23:39 EDT , Service support ,
[2019-10-27 22:41] LABS: Absolute Lymphocyte Count 0.63 X10^3/uL (0.83-4.51); Absolute Neutrophil Count 16.2 X10^3/uL (2.0-7.7); Basophil# 0.05 X10^3/uL; Basophil% 0.3 % (0-1); Eosinophil# 0.18 X10^3/uL; Hematocrit 34.1 % (40-54); Hemoglobin 11.5 g/dL (13.0-16.5); Lymphocyte # 0.63 X10^3/ul (4.0); Lymphocyte % 3.4 % (19-41); Mean Corp Hgb Conc 33.7 g/dL (32-36); Mean Corpuscular Hgb 27.3 pg (27.0-32.0); Mean Corpuscular Volume 80.8 fL (80-94); Mean Platelet Vol. 11.1 fl (6.2-12.0); Monocyte# 1.36 X10^3/uL; Monocyte% 7.4 % (0-10); NRBC Flagged by Analyzer 0 % (0-5); Neutrophil # 16.19 X10^3/uL (2.7-7.7); Neutrophil % 87.5 % (47-70); Platelet Count 218 K/mm3 (150-450); RBC Distribution Width CV 13.4 % (11.6-14.6); RBC Distribution Width SD 38.7 fl (35.1-43.9); Red Blood Count 4.22 M/mm3 (4.6-6.2); White Blood Count 18.5 K/mm3 (4.4-11.0)
[2019-10-27 22:42] LABS: Anion Gap 8 (5-15); BUN 28 mg/dL (7-18); BUN/Creat Ratio 12.6 RATIO (10-20); Calcium,Total 8.5 mg/dL (8.5-10.1); Chloride 105 mmol/L (98-107); Creatinine, Serum 2.23 mg/dL (0.70-1.30); EST Glomerular Filtration Rate 32 mL/min (>60); Est Glom Filt Rate - Afr Amer 38 mL/min (>60); Estimated Creatinine Clearance 32.38 ml/min; Glucose 270 mg/dL (74-106); Potassium 3.8 mmol/L (3.5-5.1); Sodium Level 138 mmol/L (136-145)
[2019-10-27 22:44] VITALS: BP 176/69; PULSE 117; RESP 18
[2019-10-27] MEDS: Acetaminophen 500 MG Tablet 1000 MG PO (22:51)
[2019-10-27 23:00] LABS: International Normalized Ratio 1.1; Prothrombin Time (Protime)PT. 13.7 SECONDS (11.7-14.9)
[2019-10-27 23:02] LABS: ALB/GLOB Ratio 0.6 RATIO (0.9-2.4); AST(SGOT) 18 U/L (15-37); Alanine Aminotransfer ALT/SGPT 18 U/L (16-61); Albumin, Serum 2.6 g/dL (3.2-5.0); Alkaline Phosphatase 156 U/L (45-117); Anion Gap 9 (5-15); BUN 28 mg/dL (7-18); BUN/Creat Ratio 11.8 RATIO (10-20); Calcium,Total 8.5 mg/dL (8.5-10.1); Chloride 106 mmol/L (98-107); Creatinine, Serum 2.38 mg/dL (0.70-1.30); EST Glomerular Filtration Rate 29 mL/min (>60); Est Glom Filt Rate - Afr Amer 36 mL/min (>60); Estimated Creatinine Clearance 30.34 ml/min; Globulin 4.6 g/dL (2.2-4.2); Glucose 269 mg/dL (74-106); Partial Thromboplast Time 29.3 Seconds (24.1-36.2); Potassium 3.9 mmol/L (3.5-5.1); Protein, Total 7.2 g/dL (6.4-8.2); Sodium Level 140 mmol/L (136-145)
[2019-10-27 23:28] VITALS: BP 167/87; PULSE 108; RESP 21; TEMP 39.1; O2SAT 97
--- NOTE | 2019-10-27 23:34 | ED.RN ---
Per Dr. Miramontes, no suicidal precautions.
[2019-10-27 23:35] LABS: Bacteria 0 SEEN /hpf (None Seen); Mucous, Urine 0 SEEN /hpf (<or=2+); Squamous Epithelial Cells - UA 0 SEEN /hpf (0-5); White Blood Cells 0 SEEN /hpf (0-5)
[2019-10-27 23:36] LABS: Color, Urine Yellow (Yellow); Glucose, Dipstick 1000 mg/dl (Normal); Ketone-Dipstick 5 mg/dl (Negative); Leukocyte Esterase-Dipstick Negative /ul (Negative); Nitrite-Dipstick Negative (Negative); Occult Blood-Urine 50 /ul (Negative); Protein-Dipstick 500 mg/dl (Negative); Urine Bilirubin Dipstick Negative (Negative); Urine Clarity Clear (Clear); Urine Urobilinogen Normal (Normal)
[2019-10-27 23:40] VITALS: BP 136/75
[2019-10-27 23:42] LABS: Red Blood Cells-Urine 5-10 SEEN /hpf (0-5)
[2019-10-27 23:45] VITALS: TEMP 38.4
[2019-10-28] VITALS (16 sets, daily range): BP systolic 114–188; BP diastolic 53–97; PULSE 89–106; RESP 16–24; TEMP 37.3–38.4; O2SAT 95–98; BMI 40.1
[2019-10-28 00:17] LABS: Lactic Acid 1.4 mmol/L (0.4-1.9)
[2019-10-28] MEDS: 0.9% Normal Saline 1,000 ML 999 ML IV ×2 (01:15→02:17)
--- NOTE | 2019-10-28 01:24 | ED.VISSUMM ---
- ER Visit Summary Date of Service: 10/28/19 Chief Complaint: Fever and shortness of breath for 2 weeks. History of Present Illness: The patient is a 64 M history of prior TIA, CAD, LA, cardiac stent x1, insulin-dependent diabetes, hypertension and prior postop DVT. Patient states he had a fever and cough for about 2 weeks. Says it fevers been subjective intermittent. And is been short of breath. He denies any chest pain. Denies any back pain. No hemoptysis. He denies any vomiting but has had nausea and diarrhea. Physical Examination: Older male no acute distress initial blood pressures two 8/95. Initial temperature 102.4. He is tachycardic at 119. His pulse ox is 97% on room air. No hypoxia. H EENT exam unremarkable. Other than dry mucous membranes. Neck nontender. No lymphadenopathy. Heart tachycardic rate about 120 no murmur. Lungs clear to auscultation bilaterally. Equal symmetrical. Abdomen soft nontender normal bowel sounds no peritoneal signs. Extremities moves all 4. 1+ pitting edema both lower extremities below the knees. Dorsi plantarflexion intact. Calves are nontender without cords. Neurologically is awake and alert moving all 4 extremities. Test Results: Chest x-ray shows no acute abnormality portable 1 view read by myself and the radiologist. EKG is a sinus tachycardia rate of 113. No acute signs of LA or ischemia. CBC shows an elevated white count 18.5. Hemoglobin 11. Chemistries show glucose 269. BUN of 28 creatinine 2.38 consistent with acute kidney injury. Liver enzymes unremarkable alk phos elevated 156. PT/INR unremarkable. UA negative other than glucose but no signs of infection. Lactic acid 1.4. Emergency Department Course and Treatment: Patient with a fever of uncertain etiology. Rule out COVID. Rule out pneumonia. Versus other etiologies and possible sepsis. Patient treated with IV fluids x2 L. P.o. Tylenol. Treatment Plan: Repeat evaluation unchanged at oh 1:15 AM. He is receiving IV fluids. He is currently stable. He will be started on IV antibiotics. I discussed antibiotics with the hospitalist who wanted me to use Rocephin and Zithromax for possible undiagnosed pneumonia. Due to the patient's symptoms. At this time he is fever of uncertain etiology however. Disposition: Admission to the ICU Impression: Acute fever and shortness of breath Leukocytosis uncertain etiology Acute kidney injury Rule out COVID Rule out pneumonia and sepsis This note was generated with [employer] dictation software. It may contain incorrect words, spelling, and punctuation that were not noted in review of the chart prior to signing ED Disposition - Plan for ED Patient: Referrals: Gene Miller MD [Primary Care Provider] -
--- NOTE | 2019-10-28 01:55 | HP.PCM_ITS ---
Problem List (1) Febrile illness Status: Acute (2) Shortness of breath Status: Acute (3) Old inferior wall myocardial infarction Status: Chronic (4) History of coronary artery stent placement Status: Chronic Comment: PCI-JEAN CARLOS-CX 06/17/15 (5) Essential (primary) hypertension Status: Chronic (6) Hyperlipidemia Status: Chronic Qualifiers: History of Present Illness Date of Admission: 10/28/19 Chief Complaint: short of breath The patient is a 64 year old male patient with a past medical history of TIA, coronary artery disease, history of MD with stent x1, diabetes, hypertension who presents the emergency room with a chief complaint of shortness of breath. Onset of symptoms began approximately 2 weeks ago became markedly worse on Sunday associated with loss of smell and taste with body aches and fever and now he feels that he has difficulty catching his breath. The patient states he has been in self quarantine for the past 6 months due to having eye problems and has had very limited exposure in the public and denies any known contacts to the COVID virus. He will be admitted to the ICU for contact and droplet isolation precautions until his COVID 19 status has been determined, test is pending at this time. Laboratory studies show white blood cell count of 18.5, hemoglobin 11.5, hematocrit 34, platelets 218, sodium 140, potassium 3.9, chloride 106, bicarb 25, BUN 28, creatinine 2.38, glucose 269, COVID-19 test pending. Chest x-ray was unremarkable due to fever of unknown origin antibiotics were also initiated for broad-spectrum coverage until such time that source is determined. Past Medical History Past Medical History (Chronic Problems): Chronic Problems (Last Reviewed 05/08/19 @ 20:[address] 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 Joe Montaño MD) DVT of lower extremity (deep venous thrombosis) (Chronic) Onset Date: 09/2018 I82.409 left TIA (transient ischemic attack) (Inactive) Onset Date: 09/19/18 G45.9 Old inferior wall myocardial infarction (Chronic) I25.2 Essential (primary) hypertension (Chronic) I10 Atherosclerotic heart disease of [place] coronary artery without angina pectoris (Chronic) I25.10 PCI-JAEN CARLOS-CX 06/17/15 Hyperlipidemia (Chronic) E78.5 Obesity (BMI 30.0-34.9) E66.9 Tear of lateral meniscus of left knee S83.282A Tear of medial meniscus of left knee S83.242A Type 2 diabetes mellitus E11.9 Allergies escitalopram [From Lexapro] Allergy (Verified 10/15/18 10:49) Unknown sertraline [From Zoloft] Allergy (Verified 10/15/18 10:49) Unknown lisinopril Adverse Reaction (Severe, Verified 10/15/18 10:49) Cough Home Medications: Ambulatory Orders Medication Instructions Recorded Nitroglycerin (INPATIENT USE) 0.4 mg SUBLINGUAL Q5M PRN 06/30/15 [Nitrostat] Insulin Degludec [Tresiba 48 unit SQ DAILY 02/20/17 Flextouch U-200] Insulin Lispro [Humalog KwikPen] 10 unit SQ TID PRN PRN 02/20/17 metformin 500 mg tablet 2,000 mg PO DAILY tab 09/04/17 Aspirin E.C. [Ecotrin] 81 mg PO DAILY #0 07/09/18 atorvastatin 80 mg tablet 80 mg PO QHS #90 tab 06/16/19 carvedilol 25 mg tablet 25 mg PO BID #180 tab 06/16/19 clopidogrel 75 mg tablet 75 mg PO DAILY #90 tab 06/16/19 losartan 100 mg tablet 100 mg PO DAILY #90 tab 06/16/19 pantoprazole 40 mg tablet,delayed 40 mg PO QDAY #90 tab 06/16/19 release Surgical History: Surgical History (Last Reviewed 05/08/19 @ 21:[address] Joe Motnaño MD) History of coronary artery stent placement (Chronic) Onset Date: 06/17/15 Z95.5 PCI-JEAN CARLOS-CX 06/17/15 H/O abdominal surgery Z98.890 repair spleen Surgical History: angioplasty, herniorrhaphy Smoking Status: Former smoker - *Family History Maternal Family History: Family History (Last Reviewed 05/08/19 @ 20:[address] oJe Montaño MD) Father blood clot Sister CVA (cerebral vascular accident) Mother Diabetes History Items: Diabetes Paternal Family History: Family History (Last Reviewed 05/08/19 @ 20:[address] Joe Montaño MD) Father blood clot Sister CVA (cerebral vascular accident) Mother Diabetes History Items: - - dvt in leg Sibling Family History: Family History (Last Reviewed 05/08/19 @ 20:[address] Joe Montaño MD) Father blood clot Sister CVA (cerebral vascular accident) Mother Diabetes History Items: - - brother with cad, prostate cancer possible kidney or liver problem.sister with stroke Review of Systems Constitutional: Reports: Chills, Fever. Denies: Weight Change HEENT: Denies: Head Aches, Sinus Congestion, Sinus Drainage Cardiovascular: Denies: Chest Pain, Palpitations Respiratory: Reports: Shortness of breath at rest. Denies: Cough, Sputum production Gastrointestinal: Denies: Abdominal Pain, Nausea, Vomiting Genitourinary: Denies: Dysuria Musculoskeletal: Reports: Muscle pain. Denies: Joint Pain, Joint Tenderness Skin: Denies: Rash, Wounds Neurological: Denies: Numbness, Tingling, Focal weakness Psychiatric: Reports: Anxiety. Denies: Depression, Homicidal Ideations, Suicidal Ideations Hematologic/ Lymphatic: Denies: Easy Bruising, Easy Bleeding VTE Information - Inpt Only VTE Present on Admission: No VTE Mechan Device Prophylaxis: SCD's VTE Pharm Prophylaxis ordered?: No Patient Problems: Active and Suspected Problems (Last Reviewed 05/08/19 @ 20:[address] Joe Montaño MD) Febrile illness (Acute) Shortness of breath (Acute) - Physical Exam Vitals/I&O's: Vital Signs Temp Pulse Resp BP Pulse Ox 100.2 F H 89 20 H 114/54 L 95 10/28/19 01:00 10/28/19 01:00 10/28/19 01:00 10/28/19 01:00 10/28/19 01:00 Oxygen Delivery Method Room Air Weight: 263 lb 3.711 oz Body Mass Index (BMI) 40.0 Finger Stick Blood Glucose 100 General: Alert, Oriented x3, Cooperative HEENT: Atraumatic, Normocephalic Neck: Supple Lungs: Clear to auscultation, Normal air movement Cardiovascular: Regular rate, Normal S1, Normal S2, No murmurs Abdomen: Bowel Sounds Present, Soft, Non Tender Extremities: No edema Skin: No rashes, No breakdown Musculoskeletal: No Muscle Wasting Neurological: Neuro grossly intact Psych/Mental Status: Normal Affect, Appropriate Laboratory Results 10/27/19 22:00: PT 13.7, INR 1.1, APTT 29.3 10/27/19 22:00: Sodium 140, Potassium 3.9, Chloride 106, Carbon Dioxide 25.0, Anion Gap 9, BUN 28 H, Creatinine 2.38 H, Estim Creat Clear Calc 30.34, Est GFR (MDRD) Af Amer 36 L, Est GFR (MDRD) Non-Af 29 L, BUN/Creatinine Ratio 11.8, Glucose 269 H, Calcium 8.5, Total Bilirubin 0.70, AST 18, ALT 18, Alkaline Phosphatase 156 H, Total Protein 7.2, Albumin 2.6 L, Globulin 4.6 H, Albumin/Globulin Ratio 0.6 L 10/27/19 22:00: Lactic Acid Cancelled 10/27/19 22:08: WBC 18.5 H, RBC 4.22 L, Hgb 11.5 L, Hct 34.1 L, MCV 80.8, MCH 27.3, MCHC 33.7, RDW Std Deviation 38.7, RDW Coeff of Lina 13.4, Plt Count 218, MPV 11.1, Immature Gran % (Auto) 0.400, Neut % (Auto) 87.5 H, Lymph % (Auto) 3.4 L, [place] % (Auto) 7.4, Eos % (Auto) 1.0, Baso % (Auto) 0.3, Absolute Neuts (auto) 16.2 H, Absolute Lymphs (auto) 0.63 L, Nucleated RBC % 0 10/27/19 22:08: Sodium 138, Potassium 3.8, Chloride 105, Carbon Dioxide 25.0, Anion Gap 8, BUN 28 H, Creatinine 2.23 H, Estim Creat Clear Calc 32.38, Est GFR (MDRD) Af Amer 38 L, Est GFR (MDRD) Non-Af 32 L, BUN/Creatinine Ratio 12.6, Glucose 270 H, Calcium 8.5 10/27/19 23:30: Urine Color Yellow, Urine Clarity Clear, Urine pH 7.0, Ur Specific [place] 1.010, Urine Protein 500 H, Urine Glucose (UA) 1000 H, Urine Ketones 5 H, Urine Occult Blood 50 H, Urine Nitrite Negative, Urine Bilirubin Negative, Urine Urobilinogen Normal, Ur Leukocyte Esterase Negative, Urine RBC 5-10 SEEN, Urine WBC 0 SEEN, Ur Squamous Epith Cells 0 SEEN, Urine Bacteria 0 SEEN, Urine Mucus 0 SEEN 10/27/19 23:45: Lactic Acid 1.4 10/28/19 01:20: COVID-19 (RADHA) Pending Current Medications Sodium Chloride () 1,000 mls @ 999 mls/hr IV .Q1H1M RADHA Stop: 10/28/19 02:50 Last Admin: 10/28/19 01:15 Dose: 999 mls/hr Documented by: Azithromycin 500 mg/ Dextrose 255 mls @ 250 mls/hr IV X1 ONE Stop: 10/28/19 02:08 Assessment/Plan All Active Problems (Last Reviewed 05/08/19 @ 20:[address] Joe Montaño MD) Stroke-like symptoms (Acute) Febrile illness (Acute) Shortness of breath (Acute) Abrasion, left lower leg, initial encounter (Resolved) Contusion of left knee (Resolved) Contusion of lower leg, left (Resolved) History of small bowel obstruction (Resolved) Myocardial infarct (Resolved) history of traumatic pneumothorax (Resolved) Chronic Problems (Last Reviewed 05/08/19 @ 20:[address] Joe Montaño MD) DVT of lower extremity (deep venous thrombosis) (Chronic 09/2018) left Old inferior wall myocardial infarction (Chronic) History of coronary artery stent placement (Chronic 06/17/15) PCI-JEAN CARLOS-CX 06/17/15 Essential (primary) hypertension (Chronic) Atherosclerotic heart disease of [place] coronary artery without angina pectoris (Chronic) PCI-JEAN CARLOS-CX 06/17/15 Hyperlipidemia (Chronic) Plan 1. Febrile illness/shortness of breath/rule out COVID-19?admit patient to isolation room in the ICU with respiratory droplet isolation oxygen per routine protocol, continue antibiotics initiated in the emergency room repeat CBC BMP in the morning, IV normal saline at 100 cc/h 2. Diabetes?continue current medications 3. Hypertension?continue current medications 4. Hyperlipidemia?continue statin 5. DVT prophylaxis?SCDs Inpatient E&M: 40933 Init Hosp L3
[2019-10-28] MEDS: Ondansetron 4 MG/2 ML Vial IV ×2 (02:59→04:30)
[2019-10-28 03:56] LABS: Bedside Glucose 290 mg/dL (70-110)
[2019-10-28] MEDS: 0.9% Saline Lock 10 ML Syringe IV (04:17)
[2019-10-28] MEDS: 0.9% Normal Saline 1,000 ML 100 ML IV ×3 (04:19→21:19)
[2019-10-28 04:34] LABS: Absolute Neutrophil Count 13.8 X10^3/uL (2.0-7.7); Basophil# 0.05 X10^3/uL; Basophil% 0.3 % (0-1); Eosinophil# 0.08 X10^3/uL; Eosinophils% 0.5 % (0-5); Hematocrit 30.4 % (40-54); Hemoglobin 10.2 g/dL (13.0-16.5); Lymphocyte % 3.8 % (19-41); Mean Corp Hgb Conc 33.6 g/dL (32-36); Mean Corpuscular Hgb 27.3 pg (27.0-32.0); Mean Corpuscular Volume 81.5 fL (80-94); Mean Platelet Vol. 11.2 fl (6.2-12.0); Monocyte# 1.07 X10^3/uL; Monocyte% 6.8 % (0-10); NRBC Flagged by Analyzer 0 % (0-5); Neutrophil # 13.82 X10^3/uL (2.7-7.7); POSITIVE DIFFERENTIAL YES; Platelet Count 181 K/mm3 (150-450); RBC Distribution Width CV 13.4 % (11.6-14.6); RBC Distribution Width SD 38.8 fl (35.1-43.9); Red Blood Count 3.73 M/mm3 (4.6-6.2); White Blood Count 15.7 K/mm3 (4.4-11.0)
[2019-10-28 04:38] LABS: Differential Indicated SCAN CRITERIA MET
[2019-10-28 04:56] LABS: Anion Gap 6 (5-15); BUN 29 mg/dL (7-18); BUN/Creat Ratio 11.3 RATIO (10-20); Calcium,Total 7.6 mg/dL (8.5-10.1); Chloride 105 mmol/L (98-107); Creatinine, Serum 2.56 mg/dL (0.70-1.30); EST Glomerular Filtration Rate 27 mL/min (>60); Est Glom Filt Rate - Afr Amer 33 mL/min (>60); Glucose 314 mg/dL (74-106); Magnesium 1.5 mg/dL (1.6-2.6); Potassium 5.2 mmol/L (3.5-5.1); Sodium Level 136 mmol/L (136-145)
--- NOTE | 2019-10-28 07:57 | PCM.HOSP.N ---
Hospitalist Note Seen and examined The patient was admitted on the morning today. H&P reviewed. Patient admitted with 2-week history of shortness of breath, progressively worsening since last Sunday. Patient also had loss of smell and taste, body aches and fever. Patient has minimal dry cough. He also had loose bowel movement, watery in consistency yesterday. Denies GI bleed. Mild nausea and vomiting Patient had vomiting/nausea while in ICU and his heart rate decreased to 28/min. Labs reviewed. K5.2, BUN/creatinine 29/2.56, magnesium 1.5 D-dimer 0.72. Leukocytosis 18.5 thousand with lymphopenia 3.4%. Inflammatory markers are elevated CRP, BNP and LDH. Procalcitonin 0.35 Chest x-ray independently reviewed and does not show any focus of consolidation but increased bronchovascular markings in bilateral lung field. EKG shows sinus tach rate 113 bpm, similar to EMS EKG Continue IV fluid, IV antibiotics Rocephin and Zithromax, incentive spirometry and pep. Discussed with ID. Symptoms, clinical findings and labs are suggestive of COVID-19 although PCR negative. Serology ordered. Clinically, COVID-19 pneumonia Clinical Impression(s) from Imaging Studies Chest X-Ray 10/27/19 22:38 IMPRESSION: 1. Reidentification of crowding of bronchovascular structures in the bilateral lower lobes, right greater than left, without a definite area of consolidation seen. The remaining lung nicolas are clear. Inpatient E&M: 50953 Subs Hosp L1
[2019-10-28] MEDS: Insulin Lispro 100 UNIT/ML INSULN.PEN SC ×4 (08:48→21:16)
[2019-10-28] MEDS: Pantoprazole Sodium 40 MG Tablet PO (08:48)
[2019-10-28] MEDS: Aspirin E.C. 81 MG Tablet PO (08:48)
[2019-10-28] MEDS: Clopidogrel Bisulfate 75 MG Tablet PO (08:48)
[2019-10-28 08:56] LABS: Bedside Glucose 276 mg/dL (70-110)
--- NOTE | 2019-10-28 09:20 | CM.UR ---
RN CM Assessment Note Presentation: shortness of breath Diagnosis: Febrile illness. COVID-19 negative Intro role of CM to patient via phone. pt states he has poor eyesight and knee issues so has had some difficulty at home. States son helps him and he remains independent with ADL's, meals. Does not drive, but family assists. Pt is on Room Air currently, but continuing to have fever of 100.7 PCP: Dr. Miller Specialists: Dr. Gonzalez Insurance: MMO Preferred Pharmacy: [facility] Prescription Benefit: yes LNOK: son Living Arrangements: Pt lives independently on same property as his son. Currently denies needs @ home. States his eyesight is poor, but his son assists him if needed. No personal care needs at this time. Tranportation: son drives, pt states he does not drive. DME: none per pt HHC: none SNF: none Patient DC Goals: Home on discharge DC Plan: Home CM available for discharge planning coordination. Contact CM for any concerns/needs that may arise. Maritza MEDINA RN ACM
[2019-10-28 09:25] LABS: Procalcitonin 0.35 ng/mL (0.00-0.09)
[2019-10-28] MEDS: Acetaminophen 325 MG Tablet 650 MG PO ×3 (10:29→21:38)
[2019-10-28] MEDS: Losartan Potassium 100 MG Tablet PO (10:29)
[2019-10-28 10:44] LABS: Hemoglobin A1c 8.6 % (3.8-5.6)
[2019-10-28] MEDS: Ipratropium/Albuterol Sulfate 3 ML AMPUL.NEB INHALATION ×2 (10:49→16:05)
[2019-10-28 10:51] LABS: Ferritin 180 ng/mL (26-388); LDH 273 U/L (87-241)
[2019-10-28 11:00] LABS: BNP,B-Type NATRIURETIC PEPTIDE 289.8 pg/mL (0-100)
[2019-10-28 11:06] LABS: D-Dimer Quantitative (DVT/PE) 0.72 FEU/ug/m (0.27-0.49)
--- NOTE | 2019-10-28 11:26 | VDLE_ITS ---
Reason For Study: Elevated D-dimer RIGHT LEFT GSV is normal. GSV is normal. CFV, FV and PopV are compressible. CFV, FV and PopV are compressible. T/P Trunk is compressible. T/P Trunk is compressible. PTV is compressible. PTV is compressible. RT PerV is compressible. LT PerV is compressible. Procedure Exam performed portable in ICU/CCU. The exam was abbreviated due to the COVID 19 protocol. A preliminary report was called and/or faxed to [facility]. Interpretation Summary No evidence for acute deep venous thrombosis bilateral lower extremities with patent and compressible bilateral great saphenous veins. Abbreviated Covid-19 protocol utilized Ordering Physician: Warren Kothari Referring Physician: Gene Miller Performed By: Molly Mora RVT
--- NOTE | 2019-10-28 11:26 | PCM.HP.ID ---
Problem List (1) Febrile illness Status: Acute Reason for Consult: suspected covid Consulted by: Dr. Patel History of Present Illness: The patient is a 64 year old M with DM, CAD, presented with 3 weeks of dry cough, fever, aches, headache, not feeling well. No sick contacts, lives alone. Had some congestion, sore throat, and loss of taste. Some nausea and diarrhea. Was doing ok until last night with increase in dyspnea. No chest pain. Some BLE edema. Came to ED, fever to 102.4, admitted on RA to covid isolation. PCR was neg. Started on azithro and ceftriaxone. Full ROS performed and neg except as noted above. - Medical History Past Medical History (Chronic Problems): Chronic Problems (Last Reviewed 05/08/19 @ 20:[address] Joe Montaño MD) DVT of lower extremity (deep venous thrombosis) (Chronic 09/2018) left Old inferior wall myocardial infarction (Chronic) History of coronary artery stent placement (Chronic 06/17/15) PCI-JEAN CARLOS-CX 06/17/15 Essential (primary) hypertension (Chronic) Atherosclerotic heart disease of [place] coronary artery without angina pectoris (Chronic) PCI-JEAN CARLOS-CX 06/17/15 Hyperlipidemia (Chronic) Allergies/Adverse Reactions: Allergies escitalopram [From Lexapro] Allergy (Verified 10/15/18 10:49) Unknown sertraline [From Zoloft] Allergy (Verified 10/15/18 10:49) Unknown lisinopril Adverse Reaction (Severe, Verified 10/15/18 10:49) Cough Home Medications: Ambulatory Orders Medication Instructions Recorded Nitroglycerin (INPATIENT USE) 0.4 mg SUBLINGUAL Q5M PRN 06/30/15 [Nitrostat] Insulin Degludec [Tresiba 48 unit SQ DAILY 02/20/17 Flextouch U-200] Insulin Lispro [Humalog KwikPen] 10 unit SQ TID PRN PRN 02/20/17 metformin 500 mg tablet 2,000 mg PO DAILY tab 09/04/17 Aspirin E.C. [Ecotrin] 81 mg PO DAILY #0 07/09/18 atorvastatin 80 mg tablet 80 mg PO QHS #90 tab 06/16/19 carvedilol 25 mg tablet 25 mg PO BID #180 tab 06/16/19 clopidogrel 75 mg tablet 75 mg PO DAILY #90 tab 06/16/19 losartan 100 mg tablet 100 mg PO DAILY #90 tab 06/16/19 pantoprazole 40 mg tablet,delayed 40 mg PO QDAY #90 tab 06/16/19 release - Social History SMOKING STATUS:: Former smoker Vital Signs Temp Pulse Resp BP Pulse Ox 100.7 F H 100 24 H 188/97 H 97 10/28/19 09:00 10/28/19 10:49 10/28/19 10:49 10/28/19 09:00 10/28/19 10:49 Oxygen Delivery Method Room Air Weight: 119.6 kg Body Mass Index (BMI) 40.1 Finger Stick Blood Glucose 100 Microbiology Past 72 Hours 10/28/19 04:00 Respiratory Panel (PCR) - Final Mucosa - Nasopharyngeal Laboratory Tests Past 24 Hrs 10/27/19 10/27/19 10/27/19 22:00 22:00 22:00 WBC RBC Hgb Hct MCV MCH MCHC RDW Std Deviation RDW Coeff of Lina Plt Count MPV Immature Gran % (Auto) Neut % (Auto) Lymph % (Auto) Bremer % (Auto) Eos % (Auto) Baso % (Auto) Absolute Neuts (auto) Absolute Lymphs (auto) Nucleated RBC % Differential Comment PT 13.7 INR 1.1 APTT 29.3 D-Dimer Quant (PE/DVT) Sodium 140 Potassium 3.9 Chloride 106 Carbon Dioxide 25.0 Anion Gap 9 BUN 28 H Creatinine 2.38 H Estim Creat Clear Calc 30.34 Est GFR (MDRD) Af Amer 36 L Est GFR (MDRD) Non-Af 29 L BUN/Creatinine Ratio 11.8 Glucose 269 H Hemoglobin A1c Lactic Acid Cancelled Calcium 8.5 Magnesium Ferritin Total Bilirubin 0.70 AST 18 ALT 18 Alkaline Phosphatase 156 H Lactate Dehydrogenase Troponin I C-React Prot Ext Range B-Natriuretic Peptide Total Protein 7.2 Albumin 2.6 L Globulin 4.6 H Albumin/Globulin Ratio 0.6 L Procalcitonin Urine Color Urine Clarity Urine pH Ur Specific [place] Urine Protein Urine Glucose (UA) Urine Ketones Urine Occult Blood Urine Nitrite Urine Bilirubin Urine Urobilinogen Ur Leukocyte Esterase Urine RBC Urine WBC Ur Squamous Epith Cells Urine Bacteria Urine Mucus COVID-19 (RADHA) SARS Serology 10/27/19 10/27/19 10/27/19 22:08 22:08 23:30 WBC 18.5 H RBC 4.22 L Hgb 11.5 L Hct 34.1 L MCV 80.8 MCH 27.3 MCHC 33.7 RDW Std Deviation 38.7 RDW Coeff of Lina 13.4 Plt Count 218 MPV 11.1 Immature Gran % (Auto) 0.400 Neut % (Auto) 87.5 H Lymph % (Auto) 3.4 L Bremer % (Auto) 7.4 Eos % (Auto) 1.0 Baso % (Auto) 0.3 Absolute Neuts (auto) 16.2 H Absolute Lymphs (auto) 0.63 L Nucleated RBC % 0 Differential Comment PT INR APTT D-Dimer Quant (PE/DVT) Sodium 138 Potassium 3.8 Chloride 105 Carbon Dioxide 25.0 Anion Gap 8 BUN 28 H Creatinine 2.23 H Estim Creat Clear Calc 32.38 Est GFR (MDRD) Af Amer 38 L Est GFR (MDRD) Non-Af 32 L BUN/Creatinine Ratio 12.6 Glucose 270 H Hemoglobin A1c Lactic Acid Calcium 8.5 Magnesium Ferritin Total Bilirubin AST ALT Alkaline Phosphatase Lactate Dehydrogenase Troponin I C-React Prot Ext Range B-Natriuretic Peptide Total Protein Albumin Globulin Albumin/Globulin Ratio Procalcitonin Urine Color Yellow Urine Clarity Clear Urine pH 7.0 Ur Specific [place] 1.010 Urine Protein 500 H Urine Glucose (UA) 1000 H Urine Ketones 5 H Urine Occult Blood 50 H Urine Nitrite Negative Urine Bilirubin Negative Urine Urobilinogen Normal Ur Leukocyte Esterase Negative Urine RBC 5-10 SEEN Urine WBC 0 SEEN Ur Squamous Epith Cells 0 SEEN Urine Bacteria 0 SEEN Urine Mucus 0 SEEN COVID-19 (RADHA) SARS Serology 10/27/19 10/28/19 10/28/19 23:45 01:20 04:15 WBC RBC Hgb Hct MCV MCH MCHC RDW Std Deviation RDW Coeff of Lina Plt Count MPV Immature Gran % (Auto) Neut % (Auto) Lymph % (Auto) [place] % (Auto) Eos % (Auto) Baso % (Auto) Absolute Neuts (auto) Absolute Lymphs (auto) Nucleated RBC % Differential Comment PT INR APTT D-Dimer Quant (PE/DVT) Sodium Potassium Chloride Carbon Dioxide Anion Gap BUN Creatinine Estim Creat Clear Calc Est GFR (MDRD) Af Amer Est GFR (MDRD) Non-Af BUN/Creatinine Ratio Glucose Hemoglobin A1c Lactic Acid 1.4 Calcium Magnesium Ferritin Total Bilirubin AST ALT Alkaline Phosphatase Lactate Dehydrogenase Troponin I C-React Prot Ext Range B-Natriuretic Peptide Total Protein Albumin Globulin Albumin/Globulin Ratio Procalcitonin 0.35 H Urine Color Urine Clarity Urine pH Ur Specific [place] Urine Protein Urine Glucose (UA) Urine Ketones Urine Occult Blood Urine Nitrite Urine Bilirubin Urine Urobilinogen Ur Leukocyte Esterase Urine RBC Urine WBC Ur Squamous Epith Cells Urine Bacteria Urine Mucus COVID-19 (RADHA) Not Detected SARS Serology 10/28/19 10/28/19 10/28/19 04:15 04:15 04:15 WBC 15.7 H RBC 3.73 L Hgb 10.2 L Hct 30.4 L MCV 81.5 MCH 27.3 MCHC 33.6 RDW Std Deviation 38.8 RDW Coeff of Lina 13.4 Plt Count 181 MPV 11.2 Immature Gran % (Auto) 0.600 Neut % (Auto) 88.0 H Lymph % (Auto) 3.8 L Bre[place] % (Auto) 6.8 Eos % (Auto) 0.5 Baso % (Auto) 0.3 Absolute Neuts (auto) 13.8 H Absolute Lymphs (auto) 0.60 L Nucleated RBC % 0 Differential Comment COMMENT PT INR APTT D-Dimer Quant (PE/DVT) Sodium 136 Potassium 5.2 H Chloride 105 Carbon Dioxide 25.0 Anion Gap 6 BUN 29 H Creatinine 2.56 H Estim Creat Clear Calc 28.20 Est GFR (MDRD) Af Amer 33 L Est GFR (MDRD) Non-Af 27 L BUN/Creatinine Ratio 11.3 Glucose 314 H Hemoglobin A1c Lactic Acid Calcium 7.6 L Magnesium 1.5 L Ferritin Total Bilirubin AST ALT Alkaline Phosphatase Lactate Dehydrogenase Troponin I 0.028 C-React Prot Ext Range B-Natriuretic Peptide Total Protein Albumin Globulin Albumin/Globulin Ratio Procalcitonin Urine Color Urine Clarity Urine pH Ur Specific [place] Urine Protein Urine Glucose (UA) Urine Ketones Urine Occult Blood Urine Nitrite Urine Bilirubin Urine Urobilinogen Ur Leukocyte Esterase Urine RBC Urine WBC Ur Squamous Epith Cells Urine Bacteria Urine Mucus COVID-19 (RADHA) SARS Serology 10/28/19 10/28/19 10/28/19 04:15 04:15 04:15 WBC RBC Hgb Hct MCV MCH MCHC RDW Std Deviation RDW Coeff of Lina Plt Count MPV Immature Gran % (Auto) Neut % (Auto) Lymph % (Auto) [place] % (Auto) Eos % (Auto) Baso % (Auto) Absolute Neuts (auto) Absolute Lymphs (auto) Nucleated RBC % Differential Comment PT INR APTT D-Dimer Quant (PE/DVT) Sodium Potassium Chloride Carbon Dioxide Anion Gap BUN Creatinine Estim Creat Clear Calc Est GFR (MDRD) Af Amer Est GFR (MDRD) Non-Af BUN/Creatinine Ratio Glucose Hemoglobin A1c 8.6 H Lactic Acid Calcium Magnesium Ferritin 180 Total Bilirubin AST ALT Alkaline Phosphatase Lactate Dehydrogenase 273 H Troponin I C-React Prot Ext Range 35.70 H B-Natriuretic Peptide 289.8 H Total Protein Albumin Globulin Albumin/Globulin Ratio Procalcitonin Urine Color Urine Clarity Urine pH Ur Specific [place] Urine Protein Urine Glucose (UA) Urine Ketones Urine Occult Blood Urine Nitrite Urine Bilirubin Urine Urobilinogen Ur Leukocyte Esterase Urine RBC Urine WBC Ur Squamous Epith Cells Urine Bacteria Urine Mucus COVID-19 (RADHA) SARS Serology 10/28/19 10/28/19 10:35 11:10 WBC RBC Hgb Hct MCV MCH MCHC RDW Std Deviation RDW Coeff of Lina Plt Count MPV Immature Gran % (Auto) Neut % (Auto) Lymph % (Auto) [place] % (Auto) Eos % (Auto) Baso % (Auto) Absolute Neuts (auto) Absolute Lymphs (auto) Nucleated RBC % Differential Comment PT INR APTT D-Dimer Quant (PE/DVT) 0.72 H* Sodium Potassium Chloride Carbon Dioxide Anion Gap BUN Creatinine Estim Creat Clear Calc Est GFR (MDRD) Af Amer Est GFR (MDRD) Non-Af BUN/Creatinine Ratio Glucose Hemoglobin A1c Lactic Acid Calcium Magnesium Ferritin Total Bilirubin AST ALT Alkaline Phosphatase Lactate Dehydrogenase Troponin I C-React Prot Ext Range B-Natriuretic Peptide Total Protein Albumin Globulin Albumin/Globulin Ratio Procalcitonin Urine Color Urine Clarity Urine pH Ur Specific [place] Urine Protein Urine Glucose (UA) Urine Ketones Urine Occult Blood Urine Nitrite Urine Bilirubin Urine Urobilinogen Ur Leukocyte Esterase Urine RBC Urine WBC Ur Squamous Epith Cells Urine Bacteria Urine Mucus COVID-19 (RADHA) SARS Serology Pending - Other Studies Radiology: [] reviewed Other Studies: [] Route of nutrition/ use of supplements: [] Nutritional Intake: [] IV Site: [] Blake Catheter: [] - Physical Exam General: Alert, Oriented x3, Cooperative, No apparent distress HEENT: Atraumatic, PERRLA, EOMI Neck: Supple, No Nodes Lungs: Diminished Cardiovascular: Regular rate, Regular Rhythm, No murmurs Abdomen: Soft, Non Tender, Non-Distended Extremities: Edema Skin: Ulcer/ Wound - some dry ulcers on shins IV Site: Peripheral, without redness Musculoskeletal: No Tenderness to Palpation of Joints or Extremities Neurological: Cranial nerves II-XII grossly intact - Assessment/Plan Antibiotics: [] Assessment/Plan: [] Active and Suspected Problems (Last Reviewed 05/08/19 @ 20:[address] Joe Montaño MD) Febrile illness (Acute) Shortness of breath (Acute) suspected covid - typical symptoms, lymphopenia, ANGELIA on CKD. Neg covid pcr. I ordered inflammatory markers and d-dimer. D-dimer elevated, but pt not on prophylaxis; recommend he start on lovenox. Will check BLE doppler. High glucose in blood and urine, will check A1C. Will check covid serology to try to prove diagnosis. Will monitor off of abx. Will follow, thank you, d/w nursing and primary team.
[2019-10-28] MEDS: Enoxaparin 30 MG/0.3 ML Syringe SC ×2 (12:39→21:16)
[2019-10-28 13:00] LABS: Bedside Glucose 240 mg/dL (70-110)
--- NOTE | 2019-10-28 14:13 | CASEMGMT ---
Social Work Note Per preschool special education teacher questions. Pt has completed HCPOA and LW, haven't provided copy to [facility] but is able to bring in copies. Molly Gamble NURSING HOME PHYSICIAN, CHANGE CONTROL MANAGER
--- NOTE | 2019-10-28 14:57 | CASEMGMT ---
Addendum entered by Molly Gamble 10/28/19 15:24: SW attempted to call pt again. Pt unable to answer phone at this time. SW will follow up with pt tomorrow. Original Note: Social Work Note SW received consult for Mental Health. SW reviewed chart. Per ED Triage. Pt had stated he was suicidal but too tired to act on it. Pt didn't need suicidal precautions. SW reviewed notes, pt is getting COVID serology checked to prove diagnosis of COVID. SW unable to enter into pt's room due to COVID rule out. SW attempted to call pt to check in with pt. Pt didn't answer. SW will try again later today or tomorrow to get a hold of pt to discuss Mental Health with pt. Molly Gamble ROCKET SCIENTIST, LOCAL HAZMAT DRIVER
[2019-10-28] MEDS: hydrALAZINE 20 MG/ML Vial 10 MG IV (17:04)
[2019-10-28 21:11] LABS: Bedside Glucose 220 mg/dL (70-110)
[2019-10-28] MEDS: Atorvastatin Calcium 80 MG Tablet PO (21:16)
[2019-10-28] MEDS: Carvedilol 25 MG Tablet PO (21:16)
[2019-10-29] VITALS (8 sets, daily range): BP systolic 131–147; BP diastolic 62–73; PULSE 74–86; RESP 18–21; TEMP 37.3–37.5; O2SAT 97–99
[2019-10-29 00:40] LABS: Bedside Glucose 249 mg/dL (70-110)
[2019-10-29] MEDS: Acetaminophen 325 MG Tablet 650 MG PO (04:08)
[2019-10-29 04:25] LABS: Absolute Lymphocyte Count 1.14 X10^3/uL (0.83-4.51); Absolute Neutrophil Count 5.8 X10^3/uL (2.0-7.7); Basophil# 0.04 X10^3/uL; Basophil% 0.5 % (0-1); Eosinophil# 0.24 X10^3/uL; Eosinophils% 2.9 % (0-5); Hemoglobin 9.1 g/dL (13.0-16.5); Lymphocyte # 1.14 X10^3/ul (4.0); Lymphocyte % 13.9 % (19-41); Mean Corp Hgb Conc 32.5 g/dL (32-36); Mean Corpuscular Hgb 27.2 pg (27.0-32.0); Mean Corpuscular Volume 83.8 fL (80-94); Mean Platelet Vol. 11.2 fl (6.2-12.0); Monocyte# 0.94 X10^3/uL; Monocyte% 11.4 % (0-10); NRBC Flagged by Analyzer 0 % (0-5); Neutrophil # 5.82 X10^3/uL (2.7-7.7); Neutrophil % 70.9 % (47-70); Platelet Count 155 K/mm3 (150-450); RBC Distribution Width SD 42.6 fl (35.1-43.9); Red Blood Count 3.34 M/mm3 (4.6-6.2); White Blood Count 8.2 K/mm3 (4.4-11.0)
[2019-10-29 04:39] LABS: ALB/GLOB Ratio 0.4 RATIO (0.9-2.4); AST(SGOT) 15 U/L (15-37); Alanine Aminotransfer ALT/SGPT 14 U/L (16-61); Albumin, Serum 1.8 g/dL (3.2-5.0); Alkaline Phosphatase 103 U/L (45-117); Anion Gap 7 (5-15); BUN 28 mg/dL (7-18); Calcium,Total 7.5 mg/dL (8.5-10.1); Chloride 106 mmol/L (98-107); Creatinine, Serum 2.81 mg/dL (0.70-1.30); EST Glomerular Filtration Rate 24 mL/min (>60); Est Glom Filt Rate - Afr Amer 29 mL/min (>60); Estimated Creatinine Clearance 25.69 ml/min; Globulin 4.1 g/dL (2.2-4.2); Glucose 177 mg/dL (74-106); Potassium 3.6 mmol/L (3.5-5.1); Protein, Total 5.9 g/dL (6.4-8.2); Sodium Level 138 mmol/L (136-145)
[2019-10-29] MEDS: 0.9% Normal Saline 1,000 ML 100 ML IV (06:17)
[2019-10-29] MEDS: Ipratropium/Albuterol Sulfate 3 ML AMPUL.NEB INHALATION ×2 (07:03→11:35)
[2019-10-29 07:19] LABS: SARS-COV-2 TOTAL ABS Nonreactive (Nonreactive)
[2019-10-29] MEDS: Insulin Lispro 100 UNIT/ML INSULN.PEN SC ×3 (08:31→17:00)
[2019-10-29] MEDS: Losartan Potassium 100 MG Tablet PO (08:32)
[2019-10-29] MEDS: Carvedilol 25 MG Tablet PO (08:32)
[2019-10-29] MEDS: Pantoprazole Sodium 40 MG Tablet PO (08:32)
[2019-10-29] MEDS: Aspirin E.C. 81 MG Tablet PO (08:32)
[2019-10-29] MEDS: Clopidogrel Bisulfate 75 MG Tablet PO (08:32)
[2019-10-29 08:45] LABS: Bedside Glucose 192 mg/dL (70-110)
[2019-10-29] MEDS: Enoxaparin 30 MG/0.3 ML Syringe SC (09:37)
[2019-10-29 12:45] LABS: Bedside Glucose 228 mg/dL (70-110)
--- NOTE | 2019-10-29 14:17 | CASEMGMT ---
ALIREZA MAYER NOTE: Message received that pt's daughter, Penny, would like to speak w/CM. RN LEYLA placed call to Penny @ [phone] at this time. Penny voices concerns re: pt. She states that he lives alone and has not been taking care of himself well with things such as getting his medications and taking them as prescribed. She also states he had not been asking his son for help or letting him know when he needs his medication picked up/delivered to the home. She was inquiring if there is someone who could assist him at home with his medications, as she feels he would be more receptive to someone other than family assisting him. Penny also states that pt has voiced he may be interested in/receptive to moving to an AL facility and asked if he could be provided resources for this. Loyda BOSCH, made aware. ALIREZA MAYER placed call to pt's room at this time. Pt made aware that ID Dr Kothari advises pt to maintain COVID-19 isolation precautions for one week after returning home. Pt states he has enough groceries and medications @ home to get him through for a week. He also states he would like any new medications prescribed @ d/c to come from [facility] pharmacy, so he can get them prior to going home. Pt states he is not sure who will provide transportation home when he is discharged d/t his son is germophobe and is not willing to take him home. Molly BOSCH, made aware of this as well. Rosalinda MEDINA RN, CM
--- NOTE | 2019-10-29 14:29 | PN.ID_ITS ---
Patient Problems: Active and Suspected Problems (Last Reviewed 05/08/19 @ 20:[address] Joe Montaño MD) Febrile illness (Acute) Shortness of breath (Acute) Subjective: Feeling well, no fever, no dyspnea. Straight cath this AM, unable to urinate since. - Physical Exam Vitals/I&O's: Vital Signs Temp Pulse Resp BP Pulse Ox 99.1 F 77 18 147/73 H 97 10/29/19 09:15 10/29/19 12:43 10/29/19 11:36 10/29/19 09:15 10/29/19 09:15 Oxygen Delivery Method Room Air Weight: 119.6 kg Body Mass Index (BMI) 40.1 Finger Stick Blood Glucose 100 Intake and Output for Last 24 Hours 10/27/19 10/28/19 10/29/19 23:59 23:59 23:59 Intake Total 4509.75 / 4898.08 1216.66 / 1216.66 Output Total 1050 / 1050 925 / 925 Balance 3459.75 / 3848.08 291.66 / 291.66 General: Alert, Cooperative, No apparent distress Lungs: Clear to auscultation, Normal air movement Cardiovascular: Regular rate, Regular Rhythm Abdomen: Soft, Non Tender, Non-Distended Skin: No rashes Microbiology Past 72 Hours 10/27/19 23:30 Urine, Random Urine Culture - Final Mixed Gram Positive Organisms 10/27/19 23:50 Urine, Clean Catch Legionella Antigen - Final 10/27/19 23:50 Urine, Clean Catch Streptococcus pneumoniae Antigen (M - Final 10/28/19 04:00 Mucosa - Nasopharyngeal Respiratory Panel (PCR) - Final Laboratory Results 10/28/19 11:10: SARS Serology Nonreactive 10/28/19 16:55: POC Glucose 220 H 10/28/19 21:12: POC Glucose 249 H 10/29/19 03:40: WBC 8.2, RBC 3.34 L, Hgb 9.1 L, Hct 28.0 L, MCV 83.8, MCH 27.2, MCHC 32.5, RDW Std Deviation 42.6, RDW Coeff of Lina 14.0, Plt Count 155, MPV 11.2, Immature Gran % (Auto) 0.400, Neut % (Auto) 70.9 H, Lymph % (Auto) 13.9 L, [place] % (Auto) 11.4 H, Eos % (Auto) 2.9, Baso % (Auto) 0.5, Absolute Neuts (auto) 5.8, Absolute Lymphs (auto) 1.14, Nucleated RBC % 0 10/29/19 03:40: Sodium 138, Potassium 3.6, Chloride 106, Carbon Dioxide 25.0, Anion Gap 7, BUN 28 H, Creatinine 2.81 H, Estim Creat Clear Calc 25.69, Est GFR (MDRD) Af Amer 29 L, Est GFR (MDRD) Non-Af 24 L, BUN/Creatinine Ratio 10.0, Glucose 177 H, Calcium 7.5 L, Total Bilirubin 0.30, AST 15, ALT 14 L, Alkaline Phosphatase 103, Total Protein 5.9 L, Albumin 1.8 L, Globulin 4.1, Albumin/Globulin Ratio 0.4 L 10/29/19 08:25: POC Glucose 192 H 10/29/19 12:34: POC Glucose 228 H Current Medications Acetaminophen (Tylenol) 650 mg PO Q4H PRN PRN PRN Reason: Pain Score 1-10/10 or Fever Last Admin: 10/29/19 04:08 Dose: 650 mg Documented by: Albuterol/Ipratropium (Duoneb) 3 ml INHALATION Q4HWA.RT [facility] Last Admin: 10/29/19 11:35 Dose: 3 ml Documented by: Aspirin (Ecotrin) 81 mg PO DAILY [facility] Last Admin: 10/29/19 08:32 Dose: 81 mg Documented by: Atorvastatin Calcium (Lipitor) 80 mg PO QHS [facility] Last Admin: 10/28/19 21:16 Dose: 80 mg Documented by: Carvedilol (Coreg) 25 mg PO BID [facility] Last Admin: 10/29/19 08:32 Dose: 25 mg Documented by: Clopidogrel Bisulfate (Plavix) 75 mg PO DAILY [facility] Last Admin: 10/29/19 08:32 Dose: 75 mg Documented by: Dextrose (D50w Syringe) 0 gm IV X1 PRN; Protocol PRN Reason: Hypoglycemia Enoxaparin Sodium (Lovenox) 30 mg SC BID [facility] Last Admin: 10/29/19 09:37 Dose: 30 mg Documented by: Glucagon () 1 mg IM .X1 PRN PRN Reason: Hypoglycemia Guaifenesin (Robitussin) 20 ml PO Q4H PRN PRN PRN Reason: COUGH Hydralazine HCl (Apresoline Iv) 10 mg IV Q4H PRN PRN PRN Reason: SBP more than 180 mmHg Last Admin: 10/28/19 17:04 Dose: 10 mg Documented by: Sodium Chloride () 250 mls @ 15 mls/hr IV .[id number] PRN PRN Reason: Saline Flush Last Infusion: 10/28/19 08:59 Dose: 0 mls/hr Documented by: Sodium Chloride () 250 mls @ 15 mls/hr IV .[id number] PRN PRN Reason: Additional IVPB Infusion Sodium Chloride () 1,000 mls @ 100 mls/hr IV .Q10H RADHA Last Admin: 10/29/19 06:17 Dose: 100 mls/hr Documented by: Insulin Glargine (Lantus (Bk)) 48 units SC DAILY [facility] Last Admin: 10/29/19 08:31 Dose: 48 u Documented by: Insulin Human Lispro (Humalog Kwikpen ([facility])) 0 unit SC [facility]; Protocol Last Admin: 10/29/19 12:37 Dose: 2 u Documented by: Labetalol HCl (Trandate) 10 mg IV Q4H PRN PRN PRN Reason: SBP>180 Losartan Potassium (Cozaar) 100 mg PO DAILY [facility] Last Admin: 10/29/19 08:32 Dose: 100 mg Documented by: Pantoprazole Sodium (Protonix) 40 mg PO DAILY [facility] Last Admin: 10/29/19 08:32 Dose: 40 mg Documented by: Prochlorperazine Edisylate (Compazine Iv) 5 mg IV Q4H PRN PRN PRN Reason: NAUSEA/VOMITING Sodium Chloride () 10 - 40 ml IV UD PRN PRN Reason: SALINE FLUSH Last Admin: 10/28/19 04:17 Dose: 10 ml Documented by: Medical Necessity - Tobacco Use Smoking Status: Former smoker Route of nutrition/ use of supplements: [] Nutritional Intake: [] IV Site: [] Blake Catheter: [] - Assessment/Plan Antibiotics: [] Assessment/Plan: [] Active and Suspected Problems (Last Reviewed 05/08/19 @ 20:[address] Joe Montaño MD) Febrile illness (Acute) Shortness of breath (Acute) suspected covid - typical symptoms, lymphopenia, ANGELIA on CKD. Neg covid pcr and serology. Recommend d/c home with one more week of isolation. He lives alone. Will follow, d/w nursing
--- NOTE | 2019-10-29 14:46 | DCINST_ITS ---
- Discharge Diagnoses Current Active Problems: Current Active and Chronic Problems (Last Reviewed 05/08/19 @ 20:[address] Joe Montaño MD) Febrile illness (Acute) Shortness of breath (Acute) You will use the following diet at home:: Calorie/Carbohydrate Controlled (specify 1200, 1400, etc) - 1800 Your food should be the consistency of: Regular Call your doctor if you observe: Fever of 101 or Higher, Shortness of breath Additional Instructions: Self-isolte at home for the next week. Allergies/Adverse Reactions: Allergies escitalopram [From Lexapro] Allergy (Verified 10/15/18 10:49) Unknown sertraline [From Zoloft] Allergy (Verified 10/15/18 10:49) Unknown lisinopril Adverse Reaction (Severe, Verified 10/15/18 10:49) Cough Medications to take at Discharge Nitroglycerin (INPATIENT USE) [Nitrostat] 0.4 mg SUBLINGUAL Q5M PRN 06/30/15 Insulin Degludec [Tresiba Flextouch U-200] 42 unit SQ DAILY 02/20/17 Insulin Lispro [Humalog KwikPen] 10 unit SQ TID PRN PRN 02/20/17 metformin 500 mg tablet 2,000 mg PO DAILY tab 09/04/17 Aspirin E.C. [Ecotrin] 81 mg PO DAILY #0 07/09/18 atorvastatin 80 mg tablet 80 mg PO QHS #90 tab 06/16/19 carvedilol 25 mg tablet 25 mg PO BID #180 tab 06/16/19 clopidogrel 75 mg tablet 75 mg PO DAILY #90 tab 06/16/19 losartan 100 mg tablet 100 mg PO DAILY #90 tab 06/16/19 pantoprazole 40 mg tablet,delayed release 40 mg PO QDAY #90 tab 06/16/19 Primary Care Physician: Gene Miller MD [Primary Care Provider] - Within 2 Weeks Test Results: Test results from this visit will be discussed in further detail at your follow- up appointment, if applicable. Proposed Discharge Date: 10/29/19
--- NOTE | 2019-10-29 14:48 | DS.PCM_ITS ---
Discharge Date and Diagnosis - Problem List Patient Problems: Active and Suspected Problems (Last Reviewed 05/08/19 @ 20:[address] Joe Montaño MD) Febrile illness (Acute) Shortness of breath (Acute) Date of Admission: 10/28/19 - Primary Discharge Diagnosis Acute Problems: Active Problems (Last Reviewed 05/08/19 @ 20:[address] Joe Montaño MD) Febrile illness (Acute) Shortness of breath (Acute) - Secondary Discharge Diagnosis Chronic Problems: Chronic Problems (Last Reviewed 05/08/19 @ 20:[address] Joe Montaño MD) DVT of lower extremity (deep venous thrombosis) (Chronic 09/2018) left Old inferior wall myocardial infarction (Chronic) History of coronary artery stent placement (Chronic 06/17/15) PCI-JEAN CARLOS-CX 06/17/15 Essential (primary) hypertension (Chronic) Atherosclerotic heart disease of [place] coronary artery without angina pectoris (Chronic) PCI-JEAN CARLOS-CX 06/17/15 Hyperlipidemia (Chronic) Hospital Course and Treatment Imaging Results: Clinical Impression(s) from Imaging Studies Chest X-Ray 10/27/19 22:38 IMPRESSION: 1. Reidentification of crowding of bronchovascular structures in the bilateral lower lobes, right greater than left, without a definite area of consolidation seen. The remaining lung nicolas are clear. Electronically Signed: Wolf Fair MD at 23:39 EDT , Service support , Taye: ID Operations: None Procedures: None Summary of Care Provided: The patient is a 64 year old M presents with shortness of breath. Symptoms improved. COVID-19 negative. Seen by ID who was still concerned for COVID-19 and recommended 1 more week for self quarantine. [] Patient Problems: Active and Suspected Problems (Last Reviewed 05/08/19 @ 20:[address] Joe Montaño MD) Febrile illness (Acute) Shortness of breath (Acute) - Physical Exam Vitals/I&O's: Vital Signs Temp Pulse Resp BP Pulse Ox 37.3 C 77 18 147/73 H 97 10/29/19 09:15 10/29/19 12:43 10/29/19 11:36 10/29/19 09:15 10/29/19 09:15 Oxygen Delivery Method Room Air Weight: 119.6 kg Body Mass Index (BMI) 40.1 Finger Stick Blood Glucose 100 Intake and Output for Last 24 Hours 10/27/19 10/28/19 10/29/19 23:59 23:59 23:59 Intake Total 4509.75 / 4898.08 1216.66 / 1216.66 Output Total 1050 / 1050 925 / 925 Balance 3459.75 / 3848.08 291.66 / 291.66 General: Alert, No apparent distress HEENT: Atraumatic, Normocephalic Oral: Moist Mucosa, No Gingival or Mucosal Lesions/ Ulcerations Neck: No Nodes, Trachea Midline Lungs: Clear to auscultation, Normal air movement, No rhonchi, No wheeze, No rales Cardiovascular: Regular rate, Regular Rhythm, Normal S1, Normal S2, No murmurs Abdomen: Bowel Sounds Present, Soft, Non Tender, Non-Distended, No Hepato- splenomegaly Extremities: No edema, No Calf Tenderness Microbiology Past 72 Hours 10/27/19 23:30 Urine, Random Urine Culture - Final Mixed Gram Positive Organisms 10/27/19 23:50 Urine, Clean Catch Legionella Antigen - Final 10/27/19 23:50 Urine, Clean Catch Streptococcus pneumoniae Antigen (M - Final 10/28/19 04:00 Mucosa - Nasopharyngeal Respiratory Panel (PCR) - Final Laboratory Results 10/28/19 11:10: SARS Serology Nonreactive 10/28/19 16:55: POC Glucose 220 H 10/28/19 21:12: POC Glucose 249 H 10/29/19 03:40: WBC 8.2, RBC 3.34 L, Hgb 9.1 L, Hct 28.0 L, MCV 83.8, MCH 27.2, MCHC 32.5, RDW Std Deviation 42.6, RDW Coeff of Lina 14.0, Plt Count 155, MPV 11.2, Immature Gran % (Auto) 0.400, Neut % (Auto) 70.9 H, Lymph % (Auto) 13.9 L, [place] % (Auto) 11.4 H, Eos % (Auto) 2.9, Baso % (Auto) 0.5, Absolute Neuts (auto) 5.8, Absolute Lymphs (auto) 1.14, Nucleated RBC % 0 10/29/19 03:40: Sodium 138, Potassium 3.6, Chloride 106, Carbon Dioxide 25.0, Anion Gap 7, BUN 28 H, Creatinine 2.81 H, Estim Creat Clear Calc 25.69, Est GFR (MDRD) Af Amer 29 L, Est GFR (MDRD) Non-Af 24 L, BUN/Creatinine Ratio 10.0, Glucose 177 H, Calcium 7.5 L, Total Bilirubin 0.30, AST 15, ALT 14 L, Alkaline Phosphatase 103, Total Protein 5.9 L, Albumin 1.8 L, Globulin 4.1, Albumin/Globulin Ratio 0.4 L 10/29/19 08:25: POC Glucose 192 H 10/29/19 12:34: POC Glucose 228 H Current Medications Acetaminophen (Tylenol) 650 mg PO Q4H PRN PRN PRN Reason: Pain Score 1-10/10 or Fever Last Admin: 10/29/19 04:08 Dose: 650 mg Documented by: Albuterol/Ipratropium (Duoneb) 3 ml INHALATION Q4HWA.RT [facility] Last Admin: 10/29/19 11:35 Dose: 3 ml Documented by: Aspirin (Ecotrin) 81 mg PO DAILY [facility] Last Admin: 10/29/19 08:32 Dose: 81 mg Documented by: Atorvastatin Calcium (Lipitor) 80 mg PO QHS [facility] Last Admin: 10/28/19 21:16 Dose: 80 mg Documented by: Carvedilol (Coreg) 25 mg PO BID [facility] Last Admin: 10/29/19 08:32 Dose: 25 mg Documented by: Clopidogrel Bisulfate (Plavix) 75 mg PO DAILY [facility] Last Admin: 10/29/19 08:32 Dose: 75 mg Documented by: Dextrose (D50w Syringe) 0 gm IV X1 PRN; Protocol PRN Reason: Hypoglycemia Enoxaparin Sodium (Lovenox) 30 mg SC BID [facility] Last Admin: 10/29/19 09:37 Dose: 30 mg Documented by: Glucagon () 1 mg IM .X1 PRN PRN Reason: Hypoglycemia Guaifenesin (Robitussin) 20 ml PO Q4H PRN PRN PRN Reason: COUGH Hydralazine HCl (Apresoline Iv) 10 mg IV Q4H PRN PRN PRN Reason: SBP more than 180 mmHg Last Admin: 10/28/19 17:04 Dose: 10 mg Documented by: Sodium Chloride () 250 mls @ 15 mls/hr IV .[id number] PRN PRN Reason: Saline Flush Last Infusion: 10/28/19 08:59 Dose: 0 mls/hr Documented by: Sodium Chloride () 250 mls @ 15 mls/hr IV .[id number] PRN PRN Reason: Additional IVPB Infusion Sodium Chloride () 1,000 mls @ 100 mls/hr IV .Q10H RADHA Last Admin: 10/29/19 06:17 Dose: 100 mls/hr Documented by: Insulin Glargine (Lantus ([facility])) 48 units SC DAILY [facility] Last Admin: 10/29/19 08:31 Dose: 48 u Documented by: Insulin Human Lispro (Humalog Kwikpen ([facility])) 0 unit SC ACHS [facility]; Protocol Last Admin: 10/29/19 12:37 Dose: 2 u Documented by: Labetalol HCl (Trandate) 10 mg IV Q4H PRN PRN PRN Reason: SBP>180 Losartan Potassium (Cozaar) 100 mg PO DAILY [facility] Last Admin: 10/29/19 08:32 Dose: 100 mg Documented by: Pantoprazole Sodium (Protonix) 40 mg PO DAILY [facility] Last Admin: 10/29/19 08:32 Dose: 40 mg Documented by: Prochlorperazine Edisylate (Compazine Iv) 5 mg IV Q4H PRN PRN PRN Reason: NAUSEA/VOMITING Sodium Chloride () 10 - 40 ml IV UD PRN PRN Reason: SALINE FLUSH Last Admin: 10/28/19 04:17 Dose: 10 ml Documented by: Discharge Diet: No Restrictions Call your doctor if you observe: Fever of 101 or Higher, Shortness of breath Home Medications: Medications to take at Discharge Nitroglycerin (INPATIENT USE) [Nitrostat] 0.4 mg SUBLINGUAL Q5M PRN 06/30/15 Insulin Degludec [Tresiba Flextouch U-200] 42 unit SQ DAILY 02/20/17 Insulin Lispro [Humalog KwikPen] 10 unit SQ TID PRN PRN 02/20/17 metformin 500 mg tablet 2,000 mg PO DAILY tab 09/04/17 Aspirin E.C. [Ecotrin] 81 mg PO DAILY #0 07/09/18 atorvastatin 80 mg tablet 80 mg PO QHS #90 tab 06/16/19 carvedilol 25 mg tablet 25 mg PO BID #180 tab 06/16/19 clopidogrel 75 mg tablet 75 mg PO DAILY #90 tab 06/16/19 losartan 100 mg tablet 100 mg PO DAILY #90 tab 06/16/19 pantoprazole 40 mg tablet,delayed release 40 mg PO QDAY #90 tab 06/16/19 Primary Care Physician: Gene Miller MD [Primary Care Provider] - Within 2 Weeks Disposition: Home Minutes spent on discharge:: 32 Patient Condition:: Good Medical Necessity - Tobacco Use Smoking Status: Former smoker Meaningful Use Info Meaningful Use Diagnoses (Choose all that apply): None applicable Inpatient E&M: 80201 [facility]
--- NOTE | 2019-10-29 14:58 | CASEMGMT ---
Social Work Note DANITZA discussed case with Janis HIGGINBOTHAM. It was decided that pt will need to be seen by DANITZA for in person assessment. Janis Rajan states she is able to see pt today as long as she has the time to do so. Per physician, pt is medically cleared for discharge today. DANITZA placed a call to ICU staff and updated staff that pt is not to leave until Janis Rajan or this worker see's pt due to Mental Health. DANITZA also updated that pt's daughter is requesting Assisted Living resources for pt. SW has resources, will provide to pt once SW enters room to speak with pt regarding Mental Health. DANITZA also updated that pt doesn't have a ride home. DANITZA will speak with pt and Janis Rajan regarding transportation options. Molly Gamble WHIZZER, WAITER AND CASHIER
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
[2019-10-30 01:36] LABS: Bedside Glucose 268 mg/dL (70-110)
--- NOTE | 2019-11-05 11:28 | CASEMGMT ---
Social Work Discharge Follow-up Phone Call: Discharge Date: 10/29/19 Call Date: 11/05/19 Call Time: 1120 Reason for Followup: Pt was seen at [facility] by DANITZA for mental health concerns. Resources provided for counseling services. Summary of Call: Pt stating he is doing well at this time and is feeling better than he has in a long time. SW inquired about follow up with counselor and pt stating he has transportation issues. SW provided transportation options and pt continues to decline need for setting up counseling appointment as he is feeling well at this time. Interventions: SW provided additional transportation options to pt. No further needs requested at this time. LORI Verdin
--- NOTE | 2019-11-17 08:02 | CCN.REFER ---
Patient contacted via phone call by this nurse. Patient refuses to enroll into [facility]. Patient states, I don't like people coming into my home and I don't think I need help right now.
== END 2019-10-29 17:15 | disposition home or self-care (01) | DRG 204 ==
LOC: ED 10-28 01:35 → ICU 10-28 03:10
PROVIDERS: Internal Medicine; Internal Medicine Infectious Disease; Admitting Provider Family Medicine; Emergency Provider Emergency Medicine; PCP Family Medicine
DX: R06.02 Shortness of breath (principal); Z68.41 Body mass index [BMI] 40.0-44.9, adult; N17.9 Acute kidney failure, unspecified; R50.9 Fever, unspecified; I25.10 Atherosclerotic heart disease of native coronary artery without angina pectoris; I25.2 Old myocardial infarction; E78.5 Hyperlipidemia, unspecified; D72.829 Elevated white blood cell count, unspecified; E11.22 Type 2 diabetes mellitus with diabetic chronic kidney disease; I12.9 Hypertensive chronic kidney disease with stage 1 through stage 4 chronic kidney disease, or unspecified chronic kidney disease; E66.9 Obesity, unspecified; N18.9 Chronic kidney disease, unspecified; Z86.718 Personal history of other venous thrombosis and embolism; Z86.73 Personal history of transient ischemic attack (TIA), and cerebral infarction without residual deficits; Z87.891 Personal history of nicotine dependence; Z95.5 Presence of coronary angioplasty implant and graft
CPT/HCPCS: 71045; 80048; 80053; 81001; 82728; 82962; 83036; 83605; 83615; 83735; 83880; 84145; 84484; 85025; 85379; 85610; 85730; 86140; 86769; 87040; 87086; 87088; 87449; 87633; 87635; 93005; 93970; 94640; 94667; 94668; 97162; 97166; 99251; 99285; J7030; J7050; A4216; G0463; J0696; J2405; U0003

== ENCOUNTER → 2019-11-07 | Outpatient (CLI) | payer OTHER, SELFPAY ==
[2019-10-28 03:40] VITALS: BMI 40.1
[2019-11-07 15:55] LABS: Anion Gap 7 (5-15); BUN 31 mg/dL (7-18); BUN/Creat Ratio 13.7 RATIO (10-20); Calcium,Total 7.8 mg/dL (8.5-10.1); Chloride 111 mmol/L (98-107); Creatinine, Serum 2.26 mg/dL (0.70-1.30); EST Glomerular Filtration Rate 31 mL/min (>60); Est Glom Filt Rate - Afr Amer 38 mL/min (>60); Glucose 80 mg/dL (74-106); Potassium 3.6 mmol/L (3.5-5.1); Sodium Level 143 mmol/L (136-145)
== END | disposition home or self-care (01) ==
LOC: MFPLAB 11:51
PROVIDERS: PCP Family Medicine; Visit Provider Family Medicine
DX: N18.3 Chronic kidney disease, stage 3 (moderate) (principal)
CPT/HCPCS: 36415; 80048

== ENCOUNTER → 2019-11-17 | Outpatient (CLI) | payer OTHER, SELFPAY ==
[2019-10-28 03:40] VITALS: BMI 40.1
--- NOTE | 2019-11-17 07:50 | US_ITS ---
STUDY: ABDOMINAL ULTRASOUND REASON FOR EXAM: Male, 64 years old. LEG EDEMA TECHNIQUE: Transabdominal ultrasound was performed with real-time and static lama scale imaging. TECHNICAL QUALITY: Adequate. COMPARISON: None. FINDINGS: Liver: The liver is enlarged and measures 19.9 cm. There is increased echogenicity consistent with fatty infiltration. The bile ducts are within normal limits. There is hepatic color flow. The direction of portal flow is hepatopetal. There is no demonstrated mass lesion. Portal vein measurement: Gallbladder: Normal distended gallbladder. The gallbladder wall measures 2.7 mm. There is a negative sonographic Echevarria''s sign. There is no pericholecystic fluid. There are multiple echogenic structures within the gallbladder, consistent with multiple gallstones. Common Bile Duct (C.B.D.): The common bile duct measures 4.7 mm. Pancreas: There is nonvisualization of the pancreas due to overlying bowel gas. Spleen: There is splenomegaly. The spleen measures 14.9 cm x 5.27 x 4.6 cm. Right Kidney: Normal size of the right kidney. The right kidney measures 13.8 cm x 6.6 x 2 x 6.0 cm. Normal renal cortex. The right cortex measures 1.6 cm. 2 cysts are seen. The larger measures 2 cm x 2.2 cm x 2.1 cm. There is no right hydronephrosis. Left Kidney: Normal size of the left kidney. The left kidney measures 14.1 cm x 6.5 cm x 5.8 cm. Normal renal cortex. The left cortex measures 1.6 cm. There is no demonstrated renal mass or cyst. There is no left hydronephrosis. Aorta: Unremarkable. I.V.C.: The IVC is patent. There is no ascites. US/Abdomen Complete IMPRESSION: Hepatomegaly and diffuse fatty infiltration of the liver. Multiple gallstones. Right renal cysts. Electronically Signed: Rigo Liriano, at 15:47 EDT , Service support ,
== END | disposition home or self-care (01) ==
LOC: US 07:47
PROVIDERS: PCP Family Medicine; Referring Provider Family Medicine; Visit Provider Family Medicine
DX: R60.0 Localized edema (principal)
CPT/HCPCS: 76700

== ENCOUNTER → 2019-11-26 | Outpatient (CLI) | payer OTHER, SELFPAY ==
[2019-10-28 03:40] VITALS: BMI 40.1
[2019-11-26 18:00] LABS: Protein:Creat Ratio 10570 mg/g CRE (0-200)
[2019-11-26 18:02] LABS: ALB/GLOB Ratio 0.5 RATIO (0.9-2.4); AST(SGOT) 16 U/L (15-37); Alanine Aminotransfer ALT/SGPT 15 U/L (16-61); Albumin, Serum 2.3 g/dL (3.2-5.0); Alkaline Phosphatase 155 U/L (45-117); Anion Gap 7 (5-15); BUN 24 mg/dL (7-18); BUN/Creat Ratio 9.8 RATIO (10-20); Calcium,Total 7.7 mg/dL (8.5-10.1); Chloride 108 mmol/L (98-107); Cholesterol 154 mg/dL (200); Creatinine, Serum 2.46 mg/dL (0.70-1.30); EST Glomerular Filtration Rate 28 mL/min (>60); Est Glom Filt Rate - Afr Amer 34 mL/min (>60); Globulin 4.4 g/dL (2.2-4.2); Glucose 287 mg/dL (74-106); High Density Lipoprotein 32 mg/dL; Phosphorus 2.9 mg/dL (2.5-4.9); Potassium 3.8 mmol/L (3.5-5.1); Protein, Total 6.7 g/dL (6.4-8.2); Sodium Level 140 mmol/L (136-145); Triglycerides 302 mg/dL; Very Low Density Lipoprotein 60 mg/dL (5-40)
[2019-11-26 18:08] LABS: Vitamin D,25 Hydroxy 10.8 ng/mL
[2019-11-27 09:13] LABS: PTHIN 228.8 pg/mL (18.4-80.1)
== END | disposition home or self-care (01) ==
LOC: MFPLAB 16:06
PROVIDERS: PCP Family Medicine; Visit Provider Family Medicine
DX: E55.9 Vitamin D deficiency, unspecified (principal); E78.5 Hyperlipidemia, unspecified; N18.3 Chronic kidney disease, stage 3 (moderate)
CPT/HCPCS: 36415; 80053; 80061; 82306; 82570; 83970; 84100; 84156

== ENCOUNTER → 2019-11-27 | Outpatient (CLI) | payer OTHER, SELFPAY ==
[2019-10-28 03:40] VITALS: BMI 40.1
--- NOTE | 2019-11-27 06:51 | CT_ITS ---
STUDY: CT ABDOMEN WITHOUT CONTRAST REASON FOR EXAM: Male, 64 years old. FATTY LIVER, RENAL FAILURE, HX OF TORN DIAPHRAGM, SPLEEN INJURY AND PNEUMOTHORAX D/T TRAUMA RADIATION DOSAGE (If Supplied By Facility): CTDIvol = ( 23.51 ) mGy, DLP = ( 969.11 ) mGycm TECHNIQUE: Transaxial images were obtained without intravenous contrast, and without oral contrast. Sagittal and coronal images were reconstructed. Individualized dose optimization techniques were used for this CT. COMPARISON: Comparison is made with prior examination dated October 15, 2018. FINDINGS: There now is evidence of small bilateral pleural effusions with bibasilar infiltration and/or atelectasis more prominent on the right side. Small pericardial effusion. Normal liver. Small gallstones. Normal spleen. Normal pancreas. Normal bilateral adrenal glands. Stable 3 mm nodule in obstructive calculus in the midportion of the right kidney. Punctate calcification in the lower pole calyx of the right kidney. Normal left kidney. Normal visualized stomach. Normal small intestine. Normal colon. The appendix is visualized and appears normal. There is diffuse atherosclerotic calcification of the abdominal aorta, without a demonstrated aneurysm. Normal inferior vena cava. There is borderline retroperitoneal lymphadenopathy with enlarged nodes no greater than 10mm in the short axis diameter. Presents of prior anterior abdominal hernia repair utilizing mesh. Calcification of the vas deferens. There are diffuse degenerative changes of the visualized lumbar spine. CT/Abdomen without IV Contrast IMPRESSION: New bilateral pleural effusions with bibasilar infiltration and/or atelectasis worse on the right side. Small pericardial effusion. Small gallstones. Electronically Signed: Rigo Liriano, at 9:43 EDT , Service support ,
== END | disposition home or self-care (01) ==
PROVIDERS: PCP Family Medicine; Referring Provider Family Medicine; Visit Provider Family Medicine
DX: K76.0 Fatty (change of) liver, not elsewhere classified (principal)
CPT/HCPCS: 74150

== ENCOUNTER → 2019-12-25 16:10 | Outpatient (CLI) | payer SELFPAY ==
[2019-10-28 03:40] VITALS: BMI 40.1
[2019-12-25 18:55] LABS: Anion Gap 6 (5-15); BUN 29 mg/dL (7-18); BUN/Creat Ratio 11.7 RATIO (10-20); Calcium,Total 7.8 mg/dL (8.5-10.1); Chloride 110 mmol/L (98-107); Creatinine, Serum 2.48 mg/dL (0.70-1.30); EST Glomerular Filtration Rate 28 mL/min (>60); Est Glom Filt Rate - Afr Amer 34 mL/min (>60); Glucose 65 mg/dL (74-106); Sodium Level 143 mmol/L (136-145)
== END ==
PROVIDERS: PCP Family Medicine; Referring Provider Family Medicine; Visit Provider Family Medicine
DX: N18.3 Chronic kidney disease, stage 3 (moderate) (principal)
CPT/HCPCS: 36415; 80048

== ENCOUNTER → 2019-12-30 14:42 | Outpatient (CLI) | payer SELFPAY ==
[2019-10-28 03:40] VITALS: BMI 40.1
--- NOTE | 2019-12-30 14:54 | ECHOCS_ITS ---
Reason For Study: Orthopnea Procedure This was a 2D Doppler, Color Flow transthoracic echocardiogram. The study was technically difficult. Contrast injection was performed. Exam performed in department. Left Ventricle Normal LV size. Severe concentric left ventricular hypertrophy. Left ventricular systolic function is normal. The estimated ejection fraction is 65 %. Diastolic function is indeterminate. No regional wall motion abnormalities noted. Right Ventricle Normal RV size. Normal systolic function. Atria The left atrium is mildly enlarged. Normal right atrium. No doppler evidence for ASD. Mitral Valve There is no mitral annular calcification. Normal mitral valve. Mild (1+) mitral valve insufficiency. Tricuspid Valve Normal tricuspid valve. Trivial tricuspid valve insufficiency. Unable to estimate RV systolic pressure/pulmonary artery pressure due to technically difficult study. Aortic Valve Trisinus/trileaflet aortic valve. Normal aortic valve. Pulmonic Valve The pulmonic valve is not well visualized. Trivial pulmonic valve insufficiency. Great Vessels Normal sized aortic root. Pericardium/Pleural Trivial pericardial effusion. There are no echocardiographic indications of cardiac tamponade. Medication 22 gauge I.V. with prn adaptor inserted into right arm. Diluted definity 6ml given slow IV push to enhance endocardial definition. MMode/2D Measurements & Calculations LVIDd: 4.9 cm IVSd: 2.1 cm Ao root diam: 3.7 cm LVIDs: 3.0 cm LVPWd: 1.7 cm LA dimension: 4.3 cm FS: 39.6 % Time Measurements MV dec time: 0.17 sec Doppler Measurements & Calculations MV E max david: 99.7 cm/sec Lat Peak E' David: 6.8 cm/sec Med Peak E' David: 9.2 cm/sec MV A max david: 83.4 cm/sec E/E' lat: 14.7 E/E' med: 10.8 MV E/A: 1.2 Ao V2 max: 106.8 cm/sec LV V1 max: 83.8 cm/sec PA V2 max: 85.7 cm/sec Ao max P.6 mmHg LV V1 max P.8 mmHg Interpretation Summary The study was technically difficult. Contrast injection was performed. Left ventricular systolic function is normal. The estimated ejection fraction is 65 %. Severe concentric left ventricular hypertrophy. The left atrium is mildly enlarged. Mild (1+) mitral valve insufficiency. Trivial tricuspid valve insufficiency. Trivial pulmonic valve insufficiency. Trivial pericardial effusion. There are no echocardiographic indications of cardiac tamponade. Unable to estimate RV systolic pressure/pulmonary artery pressure due to technically difficult study. Diastolic function is indeterminate. Ordering Physician: Gene Miller Referring Physician: Gene Miller Performed By: Garrett Villasenor RCS
== END ==
PROVIDERS: PCP Family Medicine; Referring Provider Family Medicine; Visit Provider Family Medicine
DX: R06.01 Orthopnea (principal)
CPT/HCPCS: 93306; Q9957; A4216; C8929

== ENCOUNTER → 2020-01-21 14:50 | Outpatient (CLI) | payer SELFPAY ==
[2019-10-28 03:40] VITALS: BMI 40.1
[2020-01-21 18:08] LABS: Albumin, Serum 2.3 g/dL (3.2-5.0); BUN 35 mg/dL (7-18); BUN/Creat Ratio 12.5 RATIO (10-20); Calcium,Total 7.9 mg/dL (8.5-10.1); Chloride 109 mmol/L (98-107); Creatinine, Serum 2.81 mg/dL (0.70-1.30); EST Glomerular Filtration Rate 24 mL/min (>60); Est Glom Filt Rate - Afr Amer 29 mL/min (>60); Glucose 91 mg/dL (74-106); Phosphorus 2.6 mg/dL (2.5-4.9); Potassium 3.2 mmol/L (3.5-5.1); Sodium Level 141 mmol/L (136-145)
== END ==
PROVIDERS: PCP Family Medicine; Referring Provider Internal Medicine Nephrology; Visit Provider Internal Medicine Nephrology
DX: N18.4 Chronic kidney disease, stage 4 (severe) (principal)
CPT/HCPCS: 36415; 80069

== ENCOUNTER → 2020-02-10 | Outpatient (CLI) | payer SELFPAY ==
[2019-10-28 03:40] VITALS: BMI 40.1
[2020-02-10 12:54] LABS: Albumin, Serum 2.2 g/dL (3.2-5.0); BUN 36 mg/dL (7-18); BUN/Creat Ratio 11.5 RATIO (10-20); Calcium,Total 7.6 mg/dL (8.5-10.1); Chloride 111 mmol/L (98-107); Creatinine, Serum 3.13 mg/dL (0.70-1.30); EST Glomerular Filtration Rate 21 mL/min (>60); Est Glom Filt Rate - Afr Amer 26 mL/min (>60); Glucose 125 mg/dL (74-106); Potassium 3.4 mmol/L (3.5-5.1); Sodium Level 142 mmol/L (136-145)
== END | disposition home or self-care (01) ==
LOC: POLAB3 11:56
PROVIDERS: PCP Family Medicine; Visit Provider Internal Medicine Nephrology
DX: N18.4 Chronic kidney disease, stage 4 (severe) (principal)
CPT/HCPCS: 36415; 80069

== ENCOUNTER 2020-03-29 18:25 | Inpatient (IN) | payer MEDICAID, SELFPAY ==
[2020-03-03 14:34] VITALS: BMI 40.3
[2020-03-29] VITALS (9 sets, daily range): BP systolic 91–158; BP diastolic 59–85; PULSE 22–80; RESP 16–25; TEMP 36.3–36.8; O2SAT 93–97; BMI 42.3; BMI 41.5
--- NOTE | 2020-03-29 18:40 | RAD_ITS ---
STUDY: X-RAY CHEST REASON FOR EXAM: Male, 64 years old. Shortness of breath, cough. TECHNIQUE: Frontal view COMPARISON: 10/27/2019 FINDINGS: The lungs are expanded. Focal right lower lobe infiltrate. Borderline size heart. Normal mediastinum and lydia. Normal visualized pulmonary arteries. Normal visualized aortic arch and descending thoracic aorta. Degenerative changes of the thoracic spine. Normal visualized ribs, clavicles, and shoulders. There is no demonstrated abnormality of the visualized soft tissue structures of the upper abdomen. RAD/Chest 1 View (Portable) IMPRESSION: Right lower lobe infiltrate. Electronically Signed: Erwin Rosas DO at 20:10 EST Tel [phone], Service support ,
--- NOTE | 2020-03-29 18:41 | EKG12_ITS ---
Test Reason : SOB Blood Pressure : / mmHG Vent. Rate : 074 BPM Atrial Rate : 074 BPM P-R Int : 200 ms QRS Dur : 104 ms QT Int : 390 ms P-R-T Axes : 039 018 041 degrees QTc Int : 432 ms Normal sinus rhythm Poor R wave progression Confirmed by JOSUE CASILLAS, TALITA ([id number]), scientific publications editor MAYNOR TREVIZO ([id number]) on 03/31/2020 8:42:53 AM Referred By: Joe Montaño Confirmed By:TALITA SALAS MD
[2020-03-29 19:34] LABS: Absolute Lymphocyte Count 0.71 X10^3/uL (0.83-4.51); Absolute Neutrophil Count 7.1 X10^3/uL (2.0-7.7); Basophil# 0.02 X10^3/uL; Basophil% 0.2 % (0-1); Eosinophil# 0.22 X10^3/uL; Eosinophils% 2.4 % (0-5); Hematocrit 25.7 % (40-54); Hemoglobin 7.7 g/dL (13.0-16.5); Lymphocyte # 0.71 X10^3/ul (4.0); Lymphocyte % 7.6 % (19-41); Mean Corpuscular Hgb 25.1 pg (27.0-32.0); Mean Corpuscular Volume 83.7 fL (80-94); Mean Platelet Vol. 11.9 fl (6.2-12.0); Monocyte# 1.24 X10^3/uL; Monocyte% 13.3 % (0-10); NRBC Flagged by Analyzer 0 % (0-5); Neutrophil # 7.14 X10^3/uL (2.7-7.7); Neutrophil % 76.3 % (47-70); Platelet Count 189 K/mm3 (150-450); RBC Distribution Width CV 14.6 % (11.6-14.6); RBC Distribution Width SD 44.1 fl (35.1-43.9); Red Blood Count 3.07 M/mm3 (4.6-6.2); White Blood Count 9.4 K/mm3 (4.4-11.0)
[2020-03-29 19:41] LABS: Lactic Acid 0.4 mmol/L (0.4-1.9)
[2020-03-29 19:54] LABS: Anion Gap 4 (5-15); BUN 85 mg/dL (7-18); BUN/Creat Ratio 19.7 RATIO (10-20); Calcium,Total 8.3 mg/dL (8.5-10.1); Chloride 115 mmol/L (98-107); Creatinine, Serum 4.32 mg/dL (0.70-1.30); EST Glomerular Filtration Rate 15 mL/min (>60); Est Glom Filt Rate - Afr Amer 18 mL/min (>60); Estimated Creatinine Clearance 17.27 ml/min; Glucose 29 mg/dL (74-106); Sodium Level 140 mmol/L (136-145)
[2020-03-29 19:59] LABS: BNP,B-Type NATRIURETIC PEPTIDE 827.5 pg/mL (0-100)
[2020-03-29] MEDS: Dextrose 50%-Water 25 GM/50 ML DISP.SYRIN IV (20:00)
[2020-03-29] MEDS: 0.9% Normal Saline 1,000 ML 100 ML IV ×2 (20:05→23:26)
--- NOTE | 2020-03-29 20:10 | ED.RN ---
orange juice and peanut butter crackers given to pt. pt a&ox3 at this time.
--- NOTE | 2020-03-29 20:10 | ED.RN ---
late entry for 194, pt was yelling at staff and screaming in his room, Dr. Jenkins at bedside with this nurse, Sasha Mac. pt was repositioned in bed.
[2020-03-29 20:41] LABS: Bedside Glucose 84 mg/dL (70-110)
--- NOTE | 2020-03-29 20:43 | ED.DCSUM_ITS ---
- ER Visit Summary Date of Service: 03/29/20 Chief Complaint: Shortness of breath History of Present Illness: The patient is a 64 M who presents with shortness of breath. He has been complaining of this for over a month. Is worse with exertion. Is better with rest. He has had a cough has been nonproductive sputum. No sore throat, rhinorrhea. He denies any chest pain. No fevers at home. He has no history of any lung issues. He is not on home oxygen. He does admit to a loss of taste. Physical Examination: Vital signs reviewed. HEENT exam unremarkable. Heart is regular rate and rhythm without murmurs. Lungs are clear to auscultation. Abdomen is soft and nontender. Extremities reveal 1+ symmetric pitting edema to the bilateral lower extremities. His legs are weeping fluid and are mildly erythematous. There is no deep wounds to the lower extremities. Skin exam normal. Neurologic exam normal. Test Results: EKG was sinus rhythm with a rate of 77. There are no ischemic changes. Chest x-ray shows a right lower lobe infiltrate. Hemoglobin is 7.7 which is downtrending from 9 a couple of months ago. Potassium is 6, chloride 115. BUN 85 and creatinine 4.32. His glucose was 29. Troponin normal. BNP 827 Emergency Department Course and Treatment: Patient did start to have an altered mental status and his blood sugar was 29. He was given D50 and his mental status returned to normal. He was given Rocephin and azithromycin along with IV fluids. I feel the patient needs to be admitted to the hospital. His blood sugar was low because he states he has been taking his insulin at home but not eating. He also has acute on chronic kidney injury which could cause him to retain insulin and cause hypoglycemia. Patient was discussed with the hospitalist for admission. Treatment Plan: [] Disposition: Admit Impression: Acute on chronic kidney injury, hypoglycemia, community-acquired pneumonia This note was generated with [employer] dictation software. It may contain incorrect words, spelling, and punctuation that were not noted in review of the chart prior to signing ED Disposition - Plan for ED Patient: Referrals: Gene Miller MD [Primary Care Provider] -
--- NOTE | 2020-03-29 20:54 | PCM.HP.STD ---
Problem List (1) Pneumonia Status: Acute (2) Chronic kidney disease (CKD) Status: Acute Qualifiers: Chronic kidney disease stage: stage 4 (severe) Qualified Code(s): N18.4 - Chronic kidney disease, stage 4 (severe) (3) Vitreous hemorrhage, bilateral Status: Chronic (4) Shortness of breath Status: Chronic (5) DVT of lower extremity (deep venous thrombosis) Status: Chronic Comment: left (6) TIA (transient ischemic attack) Status: Resolved (7) Old inferior wall myocardial infarction Status: Chronic (8) History of coronary artery stent placement Status: Chronic Comment: PCI-JEAN CARLOS-CX 06/17/15 (9) Essential (primary) hypertension Status: Chronic (10) Atherosclerotic heart disease of [place] coronary artery without angina pectoris Status: Chronic Qualifiers: [place] vs. transplanted heart: [place] heart Qualified Code(s): I25.10 - Atherosclerotic heart disease of [place] coronary artery without angina pectoris Comment: PCI-JEAN CARLOS-CX 06/17/15 (11) Hyperlipidemia Status: Chronic Qualifiers: (12) Hyperkalemia Status: Acute History of Present Illness Date of Admission: 03/29/20 Chief Complaint: MALAISE The patient is a 64 year old M with a significant history of DVT; CAD with drug-eluting stent; TIA; hypertension; and hyperlipidemia who presents emergency department with a 2-week history of malaise. Also he reports shortness of breath has been going on for about 1 month. At the emergency department patient blood glucose was 29 and he was given D50. Also he was found to have severely elevated potassium of 6.0. Past Medical History Past Medical History (Chronic Problems): Chronic Problems (Last Reviewed 03/29/20 @ 21:[address] Joe Montaño MD) Vitreous hemorrhage, bilateral (Chronic) Shortness of breath (Chronic) DVT of lower extremity (deep venous thrombosis) (Chronic 09/2018) left Old inferior wall myocardial infarction (Chronic) History of coronary artery stent placement (Chronic 06/17/15) PCI-JEAN CARLOS-CX 06/17/15 Essential (primary) hypertension (Chronic) Atherosclerotic heart disease of [place] coronary artery without angina pectoris (Chronic) PCI-JEAN CARLOS-CX 06/17/15 Hyperlipidemia (Chronic) Medical History: Medical History (Last Reviewed 03/29/20 @ 21:[address] Joe Montaño MD) Chronic kidney disease (CKD) (Acute) N18.9 Vitreous hemorrhage, bilateral (Chronic) H43.13 DVT of lower extremity (deep venous thrombosis) (Chronic) Onset Date: 09/2018 I82.409 left TIA (transient ischemic attack) (Resolved) Onset Date: 09/19/18 G45.9 Old inferior wall myocardial infarction (Chronic) I25.2 Essential (primary) hypertension (Chronic) I10 Atherosclerotic heart disease of [place] coronary artery without angina pectoris (Chronic) I25.10 PCI-JEAN CARLOS-CX 06/17/15 Hyperlipidemia (Chronic) E78.5 Obesity (BMI 30.0-34.9) E66.9 Tear of lateral meniscus of left knee S83.282A Tear of medial meniscus of left knee S83.242A Type 2 diabetes mellitus E11.9 Allergies escitalopram [From Lexapro] Allergy (Verified 03/03/20 14:29) Unknown sertraline [From Zoloft] Allergy (Verified 03/03/20 14:29) Unknown lisinopril Adverse Reaction (Severe, Verified 03/03/20 14:29) Cough Home Medications: Ambulatory Orders Medication Instructions Recorded Nitroglycerin (INPATIENT USE) 0.4 mg SUBLINGUAL Q5M PRN 06/30/15 [Nitrostat] Insulin Degludec [Tresiba 42 unit SQ DAILY 02/20/17 Flextouch U-200] Insulin Lispro [Humalog KwikPen] 16 unit SQ TID PRN PRN 02/20/17 Aspirin E.C. [Ecotrin] 81 mg PO DAILY #0 07/09/18 carvedilol 25 mg tablet 25 mg PO BID #180 tab 06/16/19 losartan 100 mg tablet 100 mg PO DAILY #90 tab 06/16/19 pantoprazole 40 mg tablet,delayed 40 mg PO QDAY #90 tab 06/16/19 release amlodipine 10 mg tablet 10 mg PO DAILY 02/10/20 cholecalciferol (vitamin D3) 1,250 1,250 mcg PO QWEEK 02/10/20 mcg (50,000 unit) capsule cyanocobalamin (vitamin B-12) 1,000 mcg PO DAILY 02/10/20 1,000 mcg capsule ferrous sulfate 325 mg (65 mg 325 mg PO DAILY 02/10/20 iron) tablet glyburide 5 mg tablet 10 mg PO BID tab 02/10/20 guanfacine 1 mg tablet 1 mg PO DAILY 02/10/20 Surgical History: Surgical History (Last Reviewed 03/29/20 @ 21:[address] Joe Montaño MD) History of coronary artery stent placement (Chronic) Onset Date: 06/17/15 Z95.5 PCI-JEAN CARLOS-CX 06/17/15 H/O abdominal surgery Z98.890 repair spleen Surgical History: angioplasty, herniorrhaphy Smoking Status: Never smoker - *Family History Maternal Family History: Family History (Last Reviewed 03/29/20 @ 21:[address] Joe Montaño MD) Father blood clot Sister CVA (cerebral vascular accident) Mother Diabetes History Items: Diabetes Paternal Family History: Family History (Last Reviewed 03/29/20 @ 21:[address] Joe Montaño MD) Father blood clot Sister CVA (cerebral vascular accident) Mother Diabetes History Items: - - dvt in leg Sibling Family History: Family History (Last Reviewed 03/29/20 @ 21:[address] Joe Montaño MD) Father blood clot Sister CVA (cerebral vascular accident) Mother Diabetes History Items: - - brother with cad, prostate cancer possible kidney or liver problem.sister with stroke Review of Systems Constitutional: Reports: Chills - Chronic, Malaise, Weakness, Fatigue. Denies: Fever, Weight Change HEENT: Denies: Head Aches, Sinus Congestion, Sinus Drainage Cardiovascular: Denies: Chest Pain, Palpitations Respiratory: Reports: Cough - Chronic, Shortness of Breath. Denies: Shortness of breath at rest, Sputum production Gastrointestinal: Denies: Abdominal Pain, Nausea, Vomiting Genitourinary: Denies: Dysuria Musculoskeletal: Denies: Joint Pain, Joint Tenderness Skin: Reports: Wounds - Bilateral legs. Denies: Rash Neurological: Denies: Numbness, Tingling, Focal weakness Psychiatric: Denies: Anxiety, Depression, Homicidal Ideations, Suicidal Ideations Hematologic/ Lymphatic: Denies: Easy Bruising, Easy Bleeding VTE Information - Inpt Only VTE Present on Admission: No VTE Mechan Device Prophylaxis: None VTE Pharm Prophylaxis ordered?: Yes Patient Problems: Active and Suspected Problems (Last Reviewed 03/29/20 @ 21:[address] Joe Montaño MD) Pneumonia (Acute) Hyperkalemia (Acute) Chronic kidney disease (CKD) (Acute) - Physical Exam Vitals/I&O's: Vital Signs Temp Pulse Resp BP Pulse Ox 97.8 F 73 25 H 117/82 H 95 03/29/20 18:28 03/29/20 20:29 03/29/20 20:29 03/29/20 20:29 03/29/20 20:29 Oxygen Delivery Method Room Air Weight: 130.1 kg Body Mass Index (BMI) 42.3 Finger Stick Blood Glucose 84 General: Alert, Oriented x3, Cooperative HEENT: Atraumatic, PERRLA, EOMI, Normocephalic Neck: Supple, No JVD, Negative Carotid Bruits Lungs: Wheezes - Mild audible wheezes and wheezes on anterior lung nicolas. Cardiovascular: Regular rate, Normal S1, Normal S2, No murmurs Abdomen: Bowel Sounds Present, Soft, Non Tender Extremities: No edema, Capillary Refill Less than 3 Seconds Skin: Excoriated - Bilateral legs, - Musculoskeletal: No Tenderness to Palpation of Joints or Extremities Neurological: Cranial nerves II-XII grossly intact Psych/Mental Status: Normal Affect, Appropriate Laboratory Results 03/29/20 18:10: WBC 9.4, RBC 3.07 L, Hgb 7.7 L, Hct 25.7 L, MCV 83.7, MCH 25.1 L, MCHC 30.0 L, RDW Std Deviation 44.1 H, RDW Coeff of Lina 14.6, Plt Count 189, MPV 11.9, Immature Gran % (Auto) 0.200, Neut % (Auto) 76.3 H, Lymph % (Auto) 7.6 L, [place] % (Auto) 13.3 H, Eos % (Auto) 2.4, Baso % (Auto) 0.2, Absolute Neuts (auto) 7.1, Absolute Lymphs (auto) 0.71 L, Nucleated RBC % 0 03/29/20 18:10: Sodium 140, Potassium 6.0 H*, Chloride 115 H, Carbon Dioxide 21.0, Anion Gap 4 L, BUN 85 H, Creatinine 4.32 H, Estim Creat Clear Calc 17.27, Est GFR (MDRD) Af Amer 18 L, Est GFR (MDRD) Non-Af 15 L, BUN/Creatinine Ratio 19.7, Glucose 29 L*, Calcium 8.3 L, Troponin I < 0.015 03/29/20 18:10: B-Natriuretic Peptide 827.5 H 03/29/20 19:00: Lactic Acid 0.4 03/29/20 20:25: POC Glucose 84 Current Medications Sodium Chloride () 1,000 mls @ 100 mls/hr IV .Q10H RADHA Last Admin: 03/29/20 20:05 Dose: 100 mls/hr Documented by: Azithromycin 500 mg/ Dextrose 255 mls @ 250 mls/hr IV X1 ONE Stop: 03/29/20 21:32 Ceftriaxone Sodium (Rocephin) 1 gm in 50 mls @ 100 mls/hr IV X1 ONE Stop: 03/29/20 21:00 Assessment/Plan All Active Problems (Last Reviewed 03/29/20 @ 21:[address] Joe Montaño MD) Pneumonia (Acute) Hyperkalemia (Acute) Chronic kidney disease (CKD) (Acute) TIA (transient ischemic attack) (Resolved 09/19/18) Abrasion, left lower leg, initial encounter (Resolved) Contusion of left knee (Resolved) Contusion of lower leg, left (Resolved) Febrile illness (Resolved) History of small bowel obstruction (Resolved) Myocardial infarct (Resolved) Stroke-like symptoms (Resolved) Syncope (Resolved 10/16/18) history of traumatic pneumothorax (Resolved) Community Acquired Pneumonia Chest x-ray: Interpreted by radiologist and actual chest x-ray image independently reviewed by me?right lower lobe infiltrates. Respiratory Gram stain and culture pending Antibiotics : Ceftriaxone and IV azithromycin ordered at emergency department and continued. Albuterol as needed Legionella antigen screen and Strep antigen ordered Acute on chronic Normocytic Anemia Hemoglobin of 7.7. Review of old labs shows that patient's hemoglobin is trending down. Anemia work-up including occult stools; reticulocyte panel; iron studies; vitamin B12 and folic acid level. Haptoglobin and LDH. ANGELIA on CKD stage IV CKD stage IV likely secondary to diabetic nephropathy. Patient follows up with Dr. Kandis Sanford, neurologist. On presentation was 4.32. Creatinine baseline is within 2.3-2.8. BUN is [address] above previous BUN BUN over creatinine is 19.7. Likely prerenal from dehydration superimposed on intrinsic renal disease. Received normal saline infusion at emergency department. Gentle normal saline infusion continued Avoid nephrotoxic's. Hold home losartan. Hyperkalemia Potassium 6.0. Likely secondary to dehydration; NAGELIA and CKD. Hold Losartan IV hydration as above Trend Hypoglycemia Received D50 at emergency department. Hypoglycemia protocol Trend Blood glucose. Venous stasis with chronic leg wounds Kerlix roll and Eb wrap to bilateral lower legs. Wound care consult History of HTN Blood pressure is low normal. Hold all home bp meds Trend BP DVT Prophylaxis Subcutaneous heparin ordered Inpatient E&M: 04961 Init Hosp L3
[2020-03-29] MEDS: Ceftriaxone 1 GM/50 ML BAG IV (20:55)
[2020-03-29 21:05] LABS: Bedside Glucose 76 mg/dL (70-110)
[2020-03-29 23:25] LABS: Bedside Glucose 150 mg/dL (70-110)
[2020-03-29] MEDS: Heparin Injection (Vial) 5,000 UNIT/ML VIAL 5000 UNIT SC (23:26)
[2020-03-29] MEDS: Carvedilol 25 MG Tablet PO (23:26)
[2020-03-29 23:40] LABS: Platelet Count 141 K/mm3 (150-450)
[2020-03-29 23:46] LABS: RET-HE 23.4 pg (30-35); Reticulocyte Count 1.49 % (0.5-1.5)
[2020-03-29] MEDS: Albuterol 2.5 MG/3 ML VIAL.NEB. INHALATION (23:51)
[2020-03-29 23:56] LABS: Ferritin 133 ng/mL (26-388); Iron 12 ug/dL (65-175); Iron Binding Capacity,Total 248 ug/dL (250-450); LDH 219 U/L (87-241); PERCENT IRON SATURATION 4.8 % (15.0-55.0)
[2020-03-30] VITALS (17 sets, daily range): BP systolic 106–147; BP diastolic 44–66; PULSE 56–78; RESP 16–24; TEMP 36.7–37.4; O2SAT 93–97
[2020-03-30 00:34] LABS: Potassium 6.5 mmol/L (3.5-5.1)
[2020-03-30] MEDS: Sodium Polystyrene Sulfonate 15 GM/60 ML UDC 30 GM PO ×2 (00:59→07:33)
[2020-03-30] MEDS: 0.9% Saline Lock 10 ML Syringe IV ×3 (01:00→17:57)
[2020-03-30 01:11] LABS: Bedside Glucose 89 mg/dL (70-110)
[2020-03-30 01:19] LABS: Vista UDS pH Range 5
[2020-03-30 01:34] LABS: Amphetamine Urine VISTA NEGATIVE (<1000 ng/mL); Barbiturate Urine VISTA NEGATIVE (< 200 ng/mL); Benzodiazepine Urine VISTA NEGATIVE (< 200 ng/mL); Cocaine Urine VISTA NEGATIVE (< 300 ng/mL); Ecstacy Urine VISTA NEGATIVE (< 500 ng/mL); Methadone Urine VISTA NEGATIVE (< 300 ng/mL); PCP Urine VISTA NEGATIVE (< 25 ng/mL); THC Urine VISTA NEGATIVE (< 50 ng/mL)
[2020-03-30] MEDS: Polyethylene Glycol 3350 17 GM PACKET 34 GM PO (02:55)
[2020-03-30 02:56] LABS: Bedside Glucose 99 mg/dL (70-110)
[2020-03-30 04:51] LABS: Bedside Glucose 114 mg/dL (70-110)
[2020-03-30] MEDS: Heparin Injection (Vial) 5,000 UNIT/ML VIAL 5000 UNIT SC (05:38)
[2020-03-30 06:08] LABS: Absolute Lymphocyte Count 0.47 X10^3/uL (0.83-4.51); Absolute Neutrophil Count 7.1 X10^3/uL (2.0-7.7); Basophil# 0.02 X10^3/uL; Basophil% 0.2 % (0-1); Eosinophil# 0.04 X10^3/uL; Eosinophils% 0.5 % (0-5); Hematocrit 22.7 % (40-54); Hemoglobin 6.6 g/dL (13.0-16.5); Lymphocyte # 0.47 X10^3/ul (4.0); Lymphocyte % 5.5 % (19-41); Mean Corp Hgb Conc 29.1 g/dL (32-36); Mean Platelet Vol. 11.6 fl (6.2-12.0); Monocyte# 1.01 X10^3/uL; Monocyte% 11.7 % (0-10); NRBC Flagged by Analyzer 0 % (0-5); Neutrophil # 7.05 X10^3/uL (2.7-7.7); Neutrophil % 81.8 % (47-70); POSITIVE DIFFERENTIAL YES; Platelet Count 128 K/mm3 (150-450); RBC Distribution Width CV 14.5 % (11.6-14.6); RBC Distribution Width SD 45.4 fl (35.1-43.9); Red Blood Count 2.64 M/mm3 (4.6-6.2); White Blood Count 8.6 K/mm3 (4.4-11.0)
[2020-03-30 06:18] LABS: Differential Indicated SCAN CRITERIA MET
[2020-03-30 06:39] LABS: Anion Gap 5 (5-15); BUN 84 mg/dL (7-18); BUN/Creat Ratio 19.4 RATIO (10-20); Calcium,Total 8.1 mg/dL (8.5-10.1); Chloride 116 mmol/L (98-107); Creatinine, Serum 4.32 mg/dL (0.70-1.30); EST Glomerular Filtration Rate 15 mL/min (>60); Est Glom Filt Rate - Afr Amer 18 mL/min (>60); Estimated Creatinine Clearance 17.27 ml/min; Glucose 105 mg/dL (74-106); Potassium 6.5 mmol/L (3.5-5.1); Sodium Level 139 mmol/L (136-145)
[2020-03-30 06:58] LABS: Differential Comment SCANNED
[2020-03-30 06:59] LABS: Hypochromasia 1+
[2020-03-30] MEDS: Ferrous Sulfate 325 MG Tablet PO (08:16)
[2020-03-30 08:25] LABS: Vitamin B12 563 pg/mL (211-911)
--- NOTE | 2020-03-30 08:33 | PCM.PN.HOSP ---
Patient Problems: Active and Suspected Problems (Last Reviewed 03/29/20 @ 21:[address] Joe Montaño MD) Pneumonia (Acute) Hyperkalemia (Acute) Chronic kidney disease (CKD) (Acute) Reason for Visit: Follow-up on hyperkalemia/ANGELIA Subjective: Shunt was seen and examined. He denied any chest pain or dizziness or SOB. He was given multiple doses of Kayexalate. Now has liquid stools. Nephrology has been consulted. Vitals/I&O's: Vital Signs Temp Pulse Resp BP Pulse Ox 98.7 F 78 22 H 147/55 H 96 03/30/20 04:50 03/30/20 07:20 03/30/20 07:20 03/30/20 04:50 03/30/20 08:00 Oxygen Delivery Method Room Air Weight: 127.459 kg Body Mass Index (BMI) 41.5 Finger Stick Blood Glucose 76 Intake and Output for Last 24 Hours 03/28/20 03/29/20 03/30/20 23:59 23:59 23:59 Intake Total 626.66 / 626.66 1265 / 1265 Output Total 300 / 300 300 / 300 Balance 326.66 / 326.66 965 / 965 General: Alert, Oriented x3, Cooperative, No apparent distress HEENT: Atraumatic, PERRLA, EOMI, Normocephalic Oral: Moist Mucosa Neck: Supple Lungs: Diminished Cardiovascular: Regular rate, Regular Rhythm, Normal S1, Normal S2, No murmurs Abdomen: Bowel Sounds Present, Soft, Non Tender, Non-Distended, No Hepato-splenomegaly Extremities: Edema - Edema +1-2, multiple chronic venous stasis ulcers, or pain, with surrounding erythema Skin: No rashes Musculoskeletal: No Tenderness to Palpation of Joints or Extremities Lymphatic: No Cervical, Supraclavicular, or Inguinal Adenopathy Neurological: Cranial nerves II-XII grossly intact, Neuro grossly intact Psych/Mental Status: Normal Affect, Appropriate Microbiology Past 72 Hours 03/30/20 03:10 Stool Stool Occult Blood ([place]) - Final 03/30/20 01:00 Urine, Clean Catch Legionella Antigen - Final 03/30/20 01:00 Urine, Clean Catch Streptococcus pneumoniae Antigen (M - Final Laboratory Results 03/29/20 18:10: WBC 9.4, RBC 3.07 L, Hgb 7.7 L, Hct 25.7 L, MCV 83.7, MCH 25.1 L, MCHC 30.0 L, RDW Std Deviation 44.1 H, RDW Coeff of Lina 14.6, Plt Count 189, MPV 11.9, Immature Gran % (Auto) 0.200, Neut % (Auto) 76.3 H, Lymph % (Auto) 7.6 L, [place] % (Auto) 13.3 H, Eos % (Auto) 2.4, Baso % (Auto) 0.2, Absolute Neuts (auto) 7.1, Absolute Lymphs (auto) 0.71 L, Nucleated RBC % 0 03/29/20 18:10: Sodium 140, Potassium 6.0 H*, Chloride 115 H, Carbon Dioxide 21.0, Anion Gap 4 L, BUN 85 H, Creatinine 4.32 H, Estim Creat Clear Calc 17.27, Est GFR (MDRD) Af Amer 18 L, Est GFR (MDRD) Non-Af 15 L, BUN/Creatinine Ratio 19.7, Glucose 29 L*, Calcium 8.3 L, Troponin I < 0.015 03/29/20 18:10: B-Natriuretic Peptide 827.5 H 03/29/20 18:10: Retic Count 1.49, Immature Retic Fraction 12.10, Retic Hgb Equivalent 23.4 L 03/29/20 18:10: Iron 12 L, TIBC 248 L, Iron Saturation 4.8 L, Ferritin 133, Lactate Dehydrogenase 219, Folate 7.80 03/29/20 19:00: Lactic Acid 0.4 03/29/20 20:25: POC Glucose 84 03/29/20 20:57: POC Glucose 76 03/29/20 23:17: POC Glucose 150 H 03/30/20 00:15: Ethyl Alcohol 5.0 03/30/20 00:15: Potassium 6.5 H* 03/30/20 01:00: Urine Opiates Screen NEGATIVE, Urine Methadone Screen NEGATIVE, Ur Barbiturates Screen NEGATIVE, Ur Phencyclidine Scrn NEGATIVE, Ur Amphetamines Screen NEGATIVE, U Methamphetamin-MDMA NEGATIVE, U Benzodiazepines Scrn NEGATIVE, Urine Cocaine Screen NEGATIVE, U Cannabinoids Screen NEGATIVE, Ur Drug Screen Comment 03/30/20 01:02: POC Glucose 89 03/30/20 02:53: POC Glucose 99 03/30/20 04:47: POC Glucose 114 H 03/30/20 05:37: Vitamin B12 563 03/30/20 05:37: Haptoglobin Pending 03/30/20 05:37: WBC 8.6, RBC 2.64 L, Hgb 6.6 L, Hct 22.7 L, MCV 86.0, MCH 25.0 L, MCHC 29.1 L, RDW Std Deviation 45.4 H, RDW Coeff of Lina 14.5, Plt Count 128 L, MPV 11.6, Immature Gran % (Auto) 0.300, Neut % (Auto) 81.8 H, Lymph % (Auto) 5.5 L, [place] % (Auto) 11.7 H, Eos % (Auto) 0.5, Baso % (Auto) 0.2, Absolute Neuts (auto) 7.1, Absolute Lymphs (auto) 0.47 L, Nucleated RBC % 0, Differential Comment SCANNED, Hypochromasia 1+ 03/30/20 05:37: Sodium 139, Potassium 6.5 H*, Chloride 116 H, Carbon Dioxide 18.0 L, Anion Gap 5, BUN 84 H, Creatinine 4.32 H, Estim Creat Clear Calc 17.27, Est GFR (MDRD) Af Amer 18 L, Est GFR (MDRD) Non-Af 15 L, BUN/Creatinine Ratio 19.4, Glucose 105, Calcium 8.1 L 03/30/20 07:30: Blood Type Pending, Antibody Screen Pending, Crossmatch See Detail Current Medications Acetaminophen (Acetaminophen 325 Mg Tablet) 650 mg PO Q6H PRN PRN PRN Reason: Pain Score 1-10/Temp > 100.7 F Albuterol Sulfate (Albuterol 2.5 Mg/3 Ml Vial.Neb.) 2.5 mg INHALATION Q4H PRN PRN PRN Reason: SOB/WHEEZING Last Admin: 03/29/20 23:51 Dose: 2.5 mg Documented by: Aspirin (Aspirin E.C. 81 Mg Tablet) 81 mg PO DAILY RADHA Carvedilol (Carvedilol 25 Mg Tablet) 25 mg PO BID RADHA Last Admin: 03/29/20 23:26 Dose: 25 mg Documented by: Cyanocobalamin (Cyanocobalamin 500 Mcg Tablet) 1,000 mcg PO DAILY REPLACED BY [facility] Dextrose (Dextrose 50%-Water 25 Gm/50 Ml Disp.Syrin) 0 gm IV X1 PRN; Protocol PRN Reason: Hypoglycemia Ergocalciferol (Ergocalciferol 50,000 Unit Capsule) 50,000 unit PO QWEEK REPLACED BY [facility] Ferrous Sulfate (Ferrous Sulfate 325 Mg Tablet) 325 mg PO DAILYCM REPLACED BY [facility] Last Admin: 03/30/20 08:16 Dose: 325 mg Documented by: Glucagon (Glucagon 1 Mg/Ml Syringe) 1 mg IM .X1 PRN PRN Reason: Hypoglycemia Heparin Sodium (Porcine) (Heparin Injection (Vial) 5,000 Unit/Ml Vial) 5,000 unit SC Q8 REPLACED BY [facility] Last Admin: 03/30/20 05:38 Dose: 5,000 unit Documented by: Azithromycin 500 mg/ Dextrose 255 mls @ 250 mls/hr IV Q24H RADHA Ceftriaxone Sodium 2 gm/ (Sodium Chloride) 50 mls @ 100 mls/hr IV Q24H RADHA Calcium Gluconate 1 gm/ N/A 10 mls @ 0 mls/hr IV X1 REPLACED BY [facility] Last Admin: 03/30/20 00:58 Dose: 10 mls/hr Documented by: Sodium Bicarbonate 50 meq/ (Dextrose) 1,050 mls @ 100 mls/hr IV .[id number] REPLACED BY [facility] Last Admin: 03/30/20 07:32 Dose: 100 mls/hr Documented by: Calcium Gluconate 1 gm/ N/A 10 mls @ 0 mls/hr IV X1 REPLACED BY [facility] Last Admin: 03/30/20 07:32 Dose: 10 mls/hr Documented by: Melatonin (Melatonin 3 Mg Tablet) 3 mg PO QHS PRN PRN PRN Reason: INSOMNIA Non-Formulary Medication (Guanfacine) 1 mg PO DAILY REPLACED BY [facility] Ondansetron HCl (Ondansetron 4 Mg/2 Ml Vial) 4 mg IV Q8H PRN PRN PRN Reason: NAUSEA/VOMITING Pantoprazole Sodium (Pantoprazole Sodium 40 Mg Tablet) 40 mg PO DAILY REPLACED BY [facility] Polyethylene Glycol (Polyethylene Glycol 3350 17 Gm Packet) 34 gm PO X1 PRN PRN Reason: Bowel Movement Polyethylene Glycol (Polyethylene Glycol 3350 17 Gm Packet) 34 gm PO X1 ONE Stop: 03/30/20 09:01 Sodium Chloride (0.9% Saline Lock 10 Ml Syringe) 10 - 40 ml IV UD PRN PRN Reason: SALINE FLUSH Last Admin: 03/30/20 07:33 Dose: 10 ml Documented by: STROKE Vital Signs/Narrative: Vital Signs Temp Pulse Resp BP Pulse Ox 03/30/20 08:00 96 03/30/20 07:20 78 22 H 03/30/20 07:00 68 03/30/20 04:50 98.7 F 71 17 147/55 H 97 Medical Necessity - Tobacco Use Smoking Status: Never smoker Assessment/Plan All Active Problems (Last Reviewed 03/29/20 @ 21:[address] Joe Montaño MD) Iron deficiency anemia (Acute) Nephrotic syndrome (Acute) Pneumonia (Acute) Hyperkalemia (Acute) Chronic kidney disease (CKD) (Acute) TIA (transient ischemic attack) (Resolved 09/19/18) Abrasion, left lower leg, initial encounter (Resolved) Contusion of left knee (Resolved) Contusion of lower leg, left (Resolved) Febrile illness (Resolved) History of small bowel obstruction (Resolved) Myocardial infarct (Resolved) Stroke-like symptoms (Resolved) Syncope (Resolved 10/16/18) history of traumatic pneumothorax (Resolved) 1. Hyperkalemia, improved, potassium now is 5.6 Off losartan, will continue to monitor 2. ANGELIA on CKD stage IV, previous creatinine of 3.1, admitted creatinine of 4.32. Follows with nephrology in the outpatient, losartan on hold, will continue to monitor 3. Acute on chronic anemia of CKD, hemoglobin is currently 6.6 Patient was admitted with hemoglobin of 7.7. Previous hemoglobin was 9.1 Stool for occult blood is negative We will transfuse 1 unit of packed RBCs, IV iron Repeat blood work in a.m. 4. Pneumonia, without hypoxia, slowly improving, urine sodium growth and Legionella antigen negative Continue on IV ceftriaxone and azithromycin 5. Hypoglycemia, resolved, history of type II DM, Home Lantus insulin and glyburide on hold We will continue to monitor 6. Chronic venostasis with chronic leg ulcers with mild erythema 7. Hypertension, blood pressure was relatively low Amlodipine and losartan on hold Continued on carvedilol We will continue to monitor 8. DVT prophylaxis with heparin SC Inpatient E&M: 11305 [facility] Hosp L3
--- NOTE | 2020-03-30 08:42 | PCM.CONS.R ---
Consultation - Renal 03/30/20 PCP/ Referring MD: Requesting physician: [] Primary care physician: Dr. Gene Miller MD Reason for Consultation:: CKD stage 4, hyperkalemia - History of Present Illness History of Present Illness: The patient is a 64 year old M well known to me with CKD stage 4 due to diabetes, nephrotic proteinuria, CAD s/p stent, DVT presented to ED with weakness, hyperkalemia K 6.0 to 6.5, and SOB with cough. Cough nonproductive, difficulty expectorating thick secretions. Denied fever, chills. No nausea, vomiting, diarrhea. States appetite has been good and has been drinking a lot of water at home but urine output has not been much. Complains of leg, scrotal swelling. He attended dialysis education and discussed preparing for dialysis in the office in the past. Creatinine elevated at 4.2 with baseline creatinine in mid 2 range in October 2019 progressed to 3.1 in January 2020. He has nephrotic proteinuria 10g. He lives alone and expressed will need placement senior living at assisted living or ECF. Potassium elevated at 6.5 despite BM with kayexalate. Denies eating high potassium foods or drinking OJ. He had a low sugar of 29 last night given D50. He is on bicarb drip for metabolic acidosis. He is ordered prbc for hgb 6.6g. Iron levels low on oral and iv iron ordered. [] - Allergies Allergies: Allergies escitalopram [From Lexapro] Allergy (Verified 03/03/20 14:29) Unknown sertraline [From Zoloft] Allergy (Verified 03/03/20 14:29) Unknown lisinopril Adverse Reaction (Severe, Verified 03/03/20 14:29) Cough - Current Medications Current Medications: Current Medications Acetaminophen (Acetaminophen 325 Mg Tablet) 650 mg PO Q6H PRN PRN PRN Reason: Pain Score 1-10/Temp > 100.7 F Albuterol Sulfate (Albuterol 2.5 Mg/3 Ml Vial.Neb.) 2.5 mg INHALATION Q4H PRN PRN PRN Reason: SOB/WHEEZING Last Admin: 03/29/20 23:51 Dose: 2.5 mg Documented by: Aspirin (Aspirin E.C. 81 Mg Tablet) 81 mg PO DAILY [facility] Carvedilol (Carvedilol 25 Mg Tablet) 25 mg PO BID [facility] Last Admin: 03/29/20 23:26 Dose: 25 mg Documented by: Cyanocobalamin (Cyanocobalamin 500 Mcg Tablet) 1,000 mcg PO DAILY [facility] Dextrose (Dextrose 50%-Water 25 Gm/50 Ml Disp.Syrin) 0 gm IV X1 PRN; Protocol PRN Reason: Hypoglycemia Ergocalciferol (Ergocalciferol 50,000 Unit Capsule) 50,000 unit PO QWEEK [facility] Ferrous Sulfate (Ferrous Sulfate 325 Mg Tablet) 325 mg PO DAILYCM [facility] Last Admin: 03/30/20 08:16 Dose: 325 mg Documented by: Glucagon (Glucagon 1 Mg/Ml Syringe) 1 mg IM .X1 PRN PRN Reason: Hypoglycemia Heparin Sodium (Porcine) (Heparin Injection (Vial) 5,000 Unit/Ml Vial) 5,000 unit SC Q8 [facility] Last Admin: 03/30/20 05:38 Dose: 5,000 unit Documented by: Azithromycin 500 mg/ Dextrose 255 mls @ 250 mls/hr IV Q24H [facility] Ceftriaxone Sodium 2 gm/ (Sodium Chloride) 50 mls @ 100 mls/hr IV Q24H [facility] Calcium Gluconate 1 gm/ N/A 10 mls @ 0 mls/hr IV X1 [facility] Last Admin: 03/30/20 00:58 Dose: 10 mls/hr Documented by: Sodium Bicarbonate 50 meq/ (Dextrose) 1,050 mls @ 100 mls/hr IV .[id number] [facility] Last Admin: 03/30/20 07:32 Dose: 100 mls/hr Documented by: Calcium Gluconate 1 gm/ N/A 10 mls @ 0 mls/hr IV X1 [facility] Last Admin: 03/30/20 07:32 Dose: 10 mls/hr Documented by: Melatonin (Melatonin 3 Mg Tablet) 3 mg PO QHS PRN PRN PRN Reason: INSOMNIA Non-Formulary Medication (Guanfacine) 1 mg PO DAILY [facility] Ondansetron HCl (Ondansetron 4 Mg/2 Ml Vial) 4 mg IV Q8H PRN PRN PRN Reason: NAUSEA/VOMITING Pantoprazole Sodium (Pantoprazole Sodium 40 Mg Tablet) 40 mg PO DAILY [facility] Polyethylene Glycol (Polyethylene Glycol 3350 17 Gm Packet) 34 gm PO X1 PRN PRN Reason: Bowel Movement Polyethylene Glycol (Polyethylene Glycol 3350 17 Gm Packet) 34 gm PO X1 ONE Stop: 03/30/20 09:01 Sodium Chloride (0.9% Saline Lock 10 Ml Syringe) 10 - 40 ml IV UD PRN PRN Reason: SALINE FLUSH Last Admin: 03/30/20 07:33 Dose: 10 ml Documented by: - Past Medical History Past Medical History (Chronic Problems): Chronic Problems (Last Reviewed 03/29/20 @ 21:[address] Joe Montaño MD) Vitreous hemorrhage, bilateral (Chronic) Shortness of breath (Chronic) DVT of lower extremity (deep venous thrombosis) (Chronic 09/2018) left Old inferior wall myocardial infarction (Chronic) History of coronary artery stent placement (Chronic 06/17/15) PCI-JEAN [facility]LOS-CX 06/17/15 Essential (primary) hypertension (Chronic) Atherosclerotic heart disease of [place] coronary artery without angina pectoris (Chronic) PCI-JEAN CARLOS-CX 06/17/15 Hyperlipidemia (Chronic) - Past Surgical History Surgical History: angioplasty, herniorrhaphy - Social History Smoking Status: Never smoker - Family History Maternal Family History: Family History (Last Reviewed 03/29/20 @ 21:[address] Joe Montaño MD) Father blood clot Sister CVA (cerebral vascular accident) Mother Diabetes History Items: Diabetes Paternal Family History: Family History (Last Reviewed 03/29/20 @ 21:[address] Joe Montaño MD) Father blood clot Sister CVA (cerebral vascular accident) Mother Diabetes History Items: - - dvt in leg Sibling Family History: Family History (Last Reviewed 03/29/20 @ 21:[address] Joe Montaño MD) Father blood clot Sister CVA (cerebral vascular accident) Mother Diabetes History Items: - - brother with cad, prostate cancer possible kidney or liver problem.sister with stroke Review of Systems Constitutional: Reports: Weakness, Fatigue. Denies: Anorexia, Chills, Fever Cardiovascular: Reports: Edema. Denies: Chest Pain, Light Headedness, Orthopnea, Palpitations, Syncope Respiratory: Reports: Cough, Shortness of Breath Gastrointestinal: Denies: Abdominal Pain, Nausea, Vomiting Genitourinary: Reports: - - no change in urine volume. Denies: Dysuria, Frequency Patient Problems: Active and Suspected Problems (Last Reviewed 03/29/20 @ 21:[address] Joe Montaño MD) Pneumonia (Acute) Hyperkalemia (Acute) Chronic kidney disease (CKD) (Acute) - Physical Exam Vitals/I&O's: Vital Signs Temp Pulse Resp BP Pulse Ox 98.7 F 78 22 H 147/55 H 96 03/30/20 04:50 03/30/20 07:20 03/30/20 07:20 03/30/20 04:50 03/30/20 08:00 Oxygen Delivery Method Room Air Weight: 127.459 kg Body Mass Index (BMI) 41.5 Finger Stick Blood Glucose 76 Intake and Output for Last 24 Hours 03/28/20 03/29/20 03/30/20 23:59 23:59 23:59 Intake Total 626.66 / 626.66 1265 / 1265 Output Total 300 / 300 300 / 300 Balance 326.66 / 326.66 965 / 965 General: Alert, Oriented x3, Cooperative, No apparent distress HEENT: PERRLA, EOMI Lungs: Clear to auscultation Cardiovascular: Regular rate, No rub noted Abdomen: Bowel Sounds Present, Distended, Obese, - - anasarca Extremities: Edema - anasarca, - - legs wrapped in destiney Musculoskeletal: No Muscle Wasting Neurological: Cranial nerves II-XII grossly intact Psych/Mental Status: Normal Affect, Appropriate, Alert and oriented to time, place, person, mood and affect Microbiology Past 72 Hours 03/30/20 03:10 Stool Stool Occult Blood ([facility]EN) - Final 03/30/20 01:00 Urine, Clean Catch Legionella Antigen - Final 03/30/20 01:00 Urine, Clean Catch Streptococcus pneumoniae Antigen (M - Final Laboratory Results 03/29/20 18:10: WBC 9.4, RBC 3.07 L, Hgb 7.7 L, Hct 25.7 L, MCV 83.7, MCH 25.1 L, MCHC 30.0 L, RDW Std Deviation 44.1 H, RDW Coeff of Lina 14.6, Plt Count 189, MPV 11.9, Immature Gran % (Auto) 0.200, Neut % (Auto) 76.3 H, Lymph % (Auto) 7.6 L, [place] % (Auto) 13.3 H, Eos % (Auto) 2.4, Baso % (Auto) 0.2, Absolute Neuts (auto) 7.1, Absolute Lymphs (auto) 0.71 L, Nucleated RBC % 0 03/29/20 18:10: Sodium 140, Potassium 6.0 H*, Chloride 115 H, Carbon Dioxide 21.0, Anion Gap 4 L, BUN 85 H, Creatinine 4.32 H, Estim Creat Clear Calc 17.27, Est GFR (MDRD) Af Amer 18 L, Est GFR (MDRD) Non-Af 15 L, BUN/Creatinine Ratio 19.7, Glucose 29 L*, Calcium 8.3 L, Troponin I < 0.015 03/29/20 18:10: B-Natriuretic Peptide 827.5 H 03/29/20 18:10: Retic Count 1.49, Immature Retic Fraction 12.10, Retic Hgb Equivalent 23.4 L 03/29/20 18:10: Iron 12 L, TIBC 248 L, Iron Saturation 4.8 L, Ferritin 133, Lactate Dehydrogenase 219, Folate 7.80 03/29/20 19:00: Lactic Acid 0.4 03/29/20 20:25: POC Glucose 84 03/29/20 20:57: POC Glucose 76 03/29/20 23:17: POC Glucose 150 H 03/30/20 00:15: Ethyl Alcohol 5.0 03/30/20 00:15: Potassium 6.5 H* 03/30/20 01:00: Urine Opiates Screen NEGATIVE, Urine Methadone Screen NEGATIVE, Ur Barbiturates Screen NEGATIVE, Ur Phencyclidine Scrn NEGATIVE, Ur Amphetamines Screen NEGATIVE, U Methamphetamin-MDMA NEGATIVE, U Benzodiazepines Scrn NEGATIVE, Urine Cocaine Screen NEGATIVE, U Cannabinoids Screen NEGATIVE, Ur Drug Screen Comment 03/30/20 01:02: POC Glucose 89 03/30/20 02:53: POC Glucose 99 03/30/20 04:47: POC Glucose 114 H 03/30/20 05:37: Vitamin B12 563 03/30/20 05:37: Haptoglobin Pending 03/30/20 05:37: WBC 8.6, RBC 2.64 L, Hgb 6.6 L, Hct 22.7 L, MCV 86.0, MCH 25.0 L, MCHC 29.1 L, RDW Std Deviation 45.4 H, RDW Coeff of Lina 14.5, Plt Count 128 L, MPV 11.6, Immature Gran % (Auto) 0.300, Neut % (Auto) 81.8 H, Lymph % (Auto) 5.5 L, [place] % (Auto) 11.7 H, Eos % (Auto) 0.5, Baso % (Auto) 0.2, Absolute Neuts (auto) 7.1, Absolute Lymphs (auto) 0.47 L, Nucleated RBC % 0, Differential Comment SCANNED, Hypochromasia 1+ 03/30/20 05:37: Sodium 139, Potassium 6.5 H*, Chloride 116 H, Carbon Dioxide 18.0 L, Anion Gap 5, BUN 84 H, Creatinine 4.32 H, Estim Creat Clear Calc 17.27, Est GFR (MDRD) Af Amer 18 L, Est GFR (MDRD) Non-Af 15 L, BUN/Creatinine Ratio 19.4, Glucose 105, Calcium 8.1 L 03/30/20 07:30: Blood Type Pending, Antibody Screen Pending, Crossmatch See Detail Clinical Impression(s) from Imaging Studies Chest X-Ray 03/29/20 18:40 IMPRESSION: Right lower lobe infiltrate. Electronically Signed: Erwin Rosas DO at 20:10 EST Tel [phone], Service support , Current Medications Acetaminophen (Acetaminophen 325 Mg Tablet) 650 mg PO Q6H PRN PRN PRN Reason: Pain Score 1-10/Temp > 100.7 F Albuterol Sulfate (Albuterol 2.5 Mg/3 Ml Vial.Neb.) 2.5 mg INHALATION Q4H PRN PRN PRN Reason: SOB/WHEEZING Last Admin: 03/29/20 23:51 Dose: 2.5 mg Documented by: Aspirin (Aspirin E.C. 81 Mg Tablet) 81 mg PO DAILY [facility] Carvedilol (Carvedilol 25 Mg Tablet) 25 mg PO BID [facility] Last Admin: 03/29/20 23:26 Dose: 25 mg Documented by: Cyanocobalamin (Cyanocobalamin 500 Mcg Tablet) 1,000 mcg PO DAILY [facility] Dextrose (Dextrose 50%-Water 25 Gm/50 Ml Disp.Syrin) 0 gm IV X1 PRN; Protocol PRN Reason: Hypoglycemia Ergocalciferol (Ergocalciferol 50,000 Unit Capsule) 50,000 unit PO QWEEK [facility] Ferrous Sulfate (Ferrous Sulfate 325 Mg Tablet) [facility] Last Admin: 03/30/20 08:16 Dose: 325 mg Documented by: Glucagon (Glucagon 1 Mg/Ml Syringe) 1 mg IM .X1 PRN PRN Reason: Hypoglycemia Heparin Sodium (Porcine) (Heparin Injection (Vial) 5,000 Unit/Ml Vial) 5,000 unit SC Q8 [facility] Last Admin: 03/30/20 05:38 Dose: 5,000 unit Documented by: Azithromycin 500 mg/ Dextrose 255 mls @ 250 mls/hr IV Q24H [facility] Ceftriaxone Sodium 2 gm/ (Sodium Chloride) 50 mls @ 100 mls/hr IV Q24H [facility] Calcium Gluconate 1 gm/ N/A 10 mls @ 0 mls/hr IV X1 [facility] Last Admin: 03/30/20 00:58 Dose: 10 mls/hr Documented by: Sodium Bicarbonate 50 meq/ (Dextrose) 1,050 mls @ 100 mls/hr IV .[id number] [facility] Last Admin: 03/30/20 07:32 Dose: 100 mls/hr Documented by: Calcium Gluconate 1 gm/ N/A 10 mls @ 0 mls/hr IV X1 [facility] Last Admin: 03/30/20 07:32 Dose: 10 mls/hr Documented by: Melatonin (Melatonin 3 Mg Tablet) 3 mg PO QHS PRN PRN PRN Reason: INSOMNIA Non-Formulary Medication (Guanfacine) 1 mg PO DAILY [facility] Ondansetron HCl (Ondansetron 4 Mg/2 Ml Vial) 4 mg IV Q8H PRN PRN PRN Reason: NAUSEA/VOMITING Pantoprazole Sodium (Pantoprazole Sodium 40 Mg Tablet) 40 mg PO DAILY [facility] Polyethylene Glycol (Polyethylene Glycol 3350 17 Gm Packet) 34 gm PO X1 PRN PRN Reason: Bowel Movement Polyethylene Glycol (Polyethylene Glycol 3350 17 Gm Packet) 34 gm PO X1 ONE Stop: 03/30/20 09:01 Sodium Chloride (0.9% Saline Lock 10 Ml Syringe) 10 - 40 ml IV UD PRN PRN Reason: SALINE FLUSH Last Admin: 03/30/20 07:33 Dose: 10 ml Documented by: Assessment/Plan All Active Problems (Last Reviewed 03/29/20 @ 21:[address] Joe Montaño MD) Iron deficiency anemia (Acute) Nephrotic syndrome (Acute) Pneumonia (Acute) Hyperkalemia (Acute) Chronic kidney disease (CKD) (Acute) TIA (transient ischemic attack) (Resolved 09/19/18) Abrasion, left lower leg, initial encounter (Resolved) Contusion of left knee (Resolved) Contusion of lower leg, left (Resolved) Febrile illness (Resolved) History of small bowel obstruction (Resolved) Myocardial infarct (Resolved) Stroke-like symptoms (Resolved) Syncope (Resolved 10/16/18) history of traumatic pneumothorax (Resolved) 1. Acute on CKD Stage 4. Check 24h urine, VM ordered. Pt attended dialysis education. May need to initiate dialysis if creatinine does not improve back to baseline. Creatinine 4.3 on admit with creatinine 2.8 to 3.1 in January 2020 2. Hyperkalemia correct with kayexalate, bicarb. Follow low K diet 3. Iron def anemia start iv iron, prbc for hgb 6.6g 4. DM2 with nephrotic syndrome, hypoglycemic episode. Avoid OJ 5. HTN stable 6. Anasarca due to nephrotic proteinuria. 7. LLL pna on antibx per primary service 8. MOrbid obesity DW hospitalist
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
--- NOTE | 2020-03-30 09:47 | VDUE_ITS ---
Reason For Study: AV Fistula Right Arm Left Arm Right Cephalic Vein at the wrist measures Left Cephalic Vein at the wrist measures 0.34 x 0.38 cm. 0.32 x 0.31 cm. Right Cephalic Vein in the forearm measures Left Cephalic Vein in the forearm measures 0.07 x 0.07 cm. 0.32 x 0.38 cm. Right Cephalic Vein below antecub measures Left Cephalic Vein below antecub measures 0.12 x 0.11 cm. 0.42 x 0.41 cm. Right Cephalic Vein above antecub measures Left Cephalic Vein above antecub measures 0.45 x 0.48 cm. 0.46 x 0.45 cm. Right Cephalic Vein mid bicep measures 0.47 Left Cephalic Vein at mid bicep measures x 0.49 cm. 0.47 x 0.48 cm. Right Cephalic Vein at the shoulder measures Left Cephalic Vein at the shoulder measures 0.55 x 0.55 cm. 0.58 x 0.56 cm. Right Basilic Vein at the origin measures Basilic vein at origin measures 0.71 x 0.74 0.73 x 0.73 cm. cm. Right Basilic Vein mid bicep measures 0.64 x Basilic vein at bicep measures 0.54 x 0.54 0.61 cm. cm. Right Basilic Vein above antecub measures Basilic vein above antecub measures 0.59 x 0.66 x 0.67 cm. 0.57 cm. Right Brachial artery measures 0.53 x 0.54 Left Brachial artery measures 0.44 x 0.44 cm cm with a velocity of 10.34 cm/sec. with a velocity of 88.6 cm/sec. Right Radial artery measures 0.22 x 0.20 cm Left Radial artery measures 0.16 x 0.15 cm with a velocity of 86.9 cm/sec. with a velocity of 45.7 cm/sec. Interpretation Summary Patent and compressible bilateral upper extremity cephalic and basilic veins with dimensions as noted. Please note the diminutive size of the cephalic vein of the right forearm and antecubital space. Borderline right radial artery diameter with more diminutive left radial artery diameter. Normal bilateral brachial artery diameter and flow Ordering Physician: Kandis Sanford Referring Physician: Gene Miller Performed By: Molly Mora RVT ?
[2020-03-30] MEDS: Sodium Ferric Gluconat 250 MG in 0.9% Normal Saline 250 ML 135 MG IV (10:44)
[2020-03-30 10:56] LABS: Anion Gap 7 (5-15); BUN 83 mg/dL (7-18); BUN/Creat Ratio 19.3 RATIO (10-20); Calcium,Total 8.2 mg/dL (8.5-10.1); Chloride 116 mmol/L (98-107); EST Glomerular Filtration Rate 15 mL/min (>60); Est Glom Filt Rate - Afr Amer 18 mL/min (>60); Estimated Creatinine Clearance 17.36 ml/min; Glucose 138 mg/dL (74-106); Potassium 5.8 mmol/L (3.5-5.1); Sodium Level 140 mmol/L (136-145)
[2020-03-30] MEDS: Aspirin E.C. 81 MG Tablet PO (11:45)
[2020-03-30] MEDS: Carvedilol 25 MG Tablet PO (11:45)
[2020-03-30] MEDS: Pantoprazole Sodium 40 MG Tablet PO (11:45)
[2020-03-30] MEDS: Cyanocobalamin 500 MCG Tablet 1000 MCG PO (11:45)
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
[2020-03-30 12:41] LABS: Bedside Glucose 135 mg/dL (70-110)
[2020-03-30 12:50] LABS: Anion Gap 6 (5-15); BUN 85 mg/dL (7-18); BUN/Creat Ratio 19.3 RATIO (10-20); Calcium,Total 7.9 mg/dL (8.5-10.1); Chloride 115 mmol/L (98-107); EST Glomerular Filtration Rate 14 mL/min (>60); Est Glom Filt Rate - Afr Amer 18 mL/min (>60); Estimated Creatinine Clearance 16.96 ml/min; Glucose 136 mg/dL (74-106); Potassium 5.6 mmol/L (3.5-5.1); Sodium Level 139 mmol/L (136-145)
[2020-03-30] MEDS: Albuterol 2.5 MG/3 ML VIAL.NEB. INHALATION ×2 (13:37→19:13)
--- NOTE | 2020-03-30 14:14 | NURSING ---
wound photo: left lower leg/foot
--- NOTE | 2020-03-30 14:15 | NURSING ---
wound photo: right lower leg (medial view)
--- NOTE | 2020-03-30 14:16 | NURSING ---
wound photo: right lower leg/foot
[2020-03-30 14:35] LABS: Bedside Glucose 125 mg/dL (70-110)
[2020-03-30] MEDS: Furosemide 40 MG/4 ML Vial IV (17:56)
[2020-03-30 18:16] LABS: Bedside Glucose 207 mg/dL (70-110)
[2020-03-30 19:15] LABS: Hemoglobin 7.1 g/dL (13.0-16.5)
[2020-03-30 21:31] LABS: Bedside Glucose 180 mg/dL (70-110)
[2020-03-31] VITALS (18 sets, daily range): BP systolic 119–162; BP diastolic 62–77; PULSE 60–81; RESP 16–18; TEMP 36.6–37.3; O2SAT 92–98; BMI 41.5
[2020-03-31 02:06] LABS: Bedside Glucose 169 mg/dL (70-110)
[2020-03-31 06:02] LABS: Absolute Lymphocyte Count 0.79 X10^3/uL (0.83-4.51); Absolute Neutrophil Count 4.6 X10^3/uL (2.0-7.7); Basophil# 0.03 X10^3/uL; Basophil% 0.4 % (0-1); Eosinophils% 2.9 % (0-5); Hematocrit 25.2 % (40-54); Hemoglobin 7.3 g/dL (13.0-16.5); Lymphocyte # 0.79 X10^3/ul (4.0); Lymphocyte % 11.7 % (19-41); Mean Corpuscular Hgb 25.3 pg (27.0-32.0); Mean Corpuscular Volume 87.2 fL (80-94); Mean Platelet Vol. 12.1 fl (6.2-12.0); Monocyte# 1.09 X10^3/uL; Monocyte% 16.1 % (0-10); NRBC Flagged by Analyzer 0 % (0-5); Neutrophil # 4.64 X10^3/uL (2.7-7.7); Neutrophil % 68.5 % (47-70); Platelet Count 121 K/mm3 (150-450); RBC Distribution Width CV 14.6 % (11.6-14.6); RBC Distribution Width SD 46.8 fl (35.1-43.9); Red Blood Count 2.89 M/mm3 (4.6-6.2); White Blood Count 6.8 K/mm3 (4.4-11.0)
[2020-03-31 06:21] LABS: Bedside Glucose 116 mg/dL (70-110)
[2020-03-31 06:25] LABS: Albumin, Serum 2.1 g/dL (3.2-5.0); BUN 90 mg/dL (7-18); BUN/Creat Ratio 18.6 RATIO (10-20); Calcium,Total 7.8 mg/dL (8.5-10.1); Chloride 112 mmol/L (98-107); Creatinine, Serum 4.85 mg/dL (0.70-1.30); EST Glomerular Filtration Rate 13 mL/min (>60); Est Glom Filt Rate - Afr Amer 16 mL/min (>60); Estimated Creatinine Clearance 15.39 ml/min; Glucose 130 mg/dL (74-106); Phosphorus 5.9 mg/dL (2.5-4.9); Potassium 5.3 mmol/L (3.5-5.1); Sodium Level 138 mmol/L (136-145)
[2020-03-31] MEDS: Pantoprazole Sodium 40 MG Tablet PO (07:48)
[2020-03-31] MEDS: Ferrous Sulfate 325 MG Tablet PO (07:48)
[2020-03-31] MEDS: Aspirin E.C. 81 MG Tablet PO (07:48)
[2020-03-31] MEDS: Cyanocobalamin 500 MCG Tablet 1000 MCG PO (07:48)
--- NOTE | 2020-03-31 09:18 | CASEMGMT ---
SW met with patient and introduced self. SW asked patient if he was able to call and find out what insurance he has. He said he has not called yet. DANITZA told him SW needs him to call as soon as possible. DANITZA explained he does not want to get stuck with a hospital bill and if he needs to go to a snf we will need that information. DANITZA told him SW will check back in a little bit. Sasha FREIRE MSW
[2020-03-31] MEDS: Sodium Polystyrene Sulfonate 15 GM/60 ML UDC 30 GM PO (09:50)
[2020-03-31 11:50] LABS: Bedside Glucose 171 mg/dL (70-110)
--- NOTE | 2020-03-31 12:24 | CON.PCM_ITS ---
Problem List (1) Nephrotic syndrome Status: Acute (2) Chronic kidney disease (CKD) Status: Acute Qualifiers: Chronic kidney disease stage: stage 4 (severe) Qualified Code(s): N18.4 - Chronic kidney disease, stage 4 (severe) Reason for Consult Date of Consultation: 03/31/20 History of Present Illness: The patient is a 64 year old M been asked to see by Dr. Kandis Sanford and Dr.Ama Alberts regarding hemodialysis access. A written copy of my surgical consult recommendations will be present in the electronic medical record. This is a 64-year-old gentleman. He was admitted to the [facility] on March 29, 2020. He appears to have chronic renal failure with acute exacerbation.There was additional concern about possible pneumonia. He has had chronic lower extremity DVT. He had a history of myocardial infarction and TIA. He is type 2 diabetes. He is right arm dominant. Initially it was felt maybe he would simply require a routine appointment for outpatient placement of fistula. Then it was decided that a tunneled dialysis catheter would be more beneficial for the patient. He did have breakfast today but since has been n.p.o. His anticoagulation includes aspirin. Past Medical History Past Medical History (Chronic Problems): Chronic Problems (Last Reviewed 03/29/20 @ 21:[address] Joe Montaño MD) Vitreous hemorrhage, bilateral (Chronic) Shortness of breath (Chronic) DVT of lower extremity (deep venous thrombosis) (Chronic 09/2018) left Old inferior wall myocardial infarction (Chronic) History of coronary artery stent placement (Chronic 06/17/15) PCI-JEAN CARLOS-CX 06/17/15 Essential (primary) hypertension (Chronic) Atherosclerotic heart disease of [place] coronary artery without angina pectoris (Chronic) PCI-JEAN CARLOS-CX 06/17/15 Hyperlipidemia (Chronic) Medical History: Medical History (Last Reviewed 03/29/20 @ 21:[address] Joe Montaño MD) Chronic kidney disease (CKD) (Acute) N18.9 Vitreous hemorrhage, bilateral (Chronic) H43.13 DVT of lower extremity (deep venous thrombosis) (Chronic) Onset Date: 09/2018 I82.409 left TIA (transient ischemic attack) (Resolved) Onset Date: 09/19/18 G45.9 Old inferior wall myocardial infarction (Chronic) I25.2 Essential (primary) hypertension (Chronic) I10 Atherosclerotic heart disease of [place] coronary artery without angina pectoris (Chronic) I25.10 PCI-JEAN CARLOS-CX 06/17/15 Hyperlipidemia (Chronic) E78.5 Obesity (BMI 30.0-34.9) E66.9 Tear of lateral meniscus of left knee S83.282A Tear of medial meniscus of left knee S83.242A Type 2 diabetes mellitus E11.9 Allergies escitalopram [From Lexapro] Allergy (Verified 03/03/20 14:29) Unknown sertraline [From Zoloft] Allergy (Verified 03/03/20 14:29) Unknown lisinopril Adverse Reaction (Severe, Verified 03/03/20 14:29) Cough Home Medications: Ambulatory Orders Medication Instructions Recorded Nitroglycerin (INPATIENT USE) 0.4 mg SUBLINGUAL Q5M PRN 06/30/15 [Nitrostat] Insulin Degludec [Tresiba 42 unit SQ DAILY 02/20/17 Flextouch U-200] Insulin Lispro [Humalog KwikPen] 16 unit SQ TID PRN PRN 02/20/17 Aspirin E.C. [Ecotrin] 81 mg PO DAILY #0 07/09/18 carvedilol 25 mg tablet 25 mg PO BID #180 tab 06/16/19 losartan 100 mg tablet 100 mg PO DAILY #90 tab 06/16/19 pantoprazole 40 mg tablet,delayed 40 mg PO QDAY #90 tab 06/16/19 release amlodipine 10 mg tablet 10 mg PO DAILY 02/10/20 cholecalciferol (vitamin D3) 1,250 1,250 mcg PO QWEEK 02/10/20 mcg (50,000 unit) capsule cyanocobalamin (vitamin B-12) 1,000 mcg PO DAILY 02/10/20 1,000 mcg capsule ferrous sulfate 325 mg (65 mg 325 mg PO DAILY 02/10/20 iron) tablet glyburide 5 mg tablet 10 mg PO DAILY tab 02/10/20 guanfacine 1 mg tablet 1 mg PO DAILY 02/10/20 Surgical History: Surgical History (Last Reviewed 03/29/20 @ 21:[address] Joe Montaño MD) History of coronary artery stent placement (Chronic) Onset Date: 06/17/15 Z95.5 PCI-JEAN CARLOS-CX 06/17/15 H/O abdominal surgery Z98.890 repair spleen Surgical History: angioplasty, herniorrhaphy Smoking Status: Never smoker - *Family History Maternal Family History: Family History (Last Reviewed 03/29/20 @ 21:[address] Joe Montaño MD) Father blood clot Sister CVA (cerebral vascular accident) Mother Diabetes History Items: Diabetes Paternal Family History: Family History (Last Reviewed 03/29/20 @ 21:[address] Joe Montaño MD) Father blood clot Sister CVA (cerebral vascular accident) Mother Diabetes History Items: - - dvt in leg Sibling Family History: Family History (Last Reviewed 03/29/20 @ 21:[address] Joe Montaño MD) Father blood clot Sister CVA (cerebral vascular accident) Mother Diabetes History Items: - - brother with cad, prostate cancer possible kidney or liver problem.sister with stroke Review of Systems Constitutional: Reports: Malaise Cardiovascular: Denies: Chest Pain, Chest Pressure Respiratory: Denies: Cough Gastrointestinal: Denies: Abdominal Pain Endocrine: Reports: Change in Body Habitus, - - Weight increase Patient Problems: Active and Suspected Problems (Last Reviewed 03/29/20 @ 21:[address] Joe Montaño MD) Pneumonia (Acute) Hyperkalemia (Acute) Chronic kidney disease (CKD) (Acute) - Physical Exam Vitals/I&O's: Vital Signs Temp Pulse Resp BP Pulse Ox 98.8 F 60 17 127/71 H 92 03/31/20 06:11 03/31/20 07:00 03/31/20 06:11 03/31/20 06:11 03/31/20 07:17 Oxygen Delivery Method Room Air Weight: 281 lb 1.43 oz Body Mass Index (BMI) 41.5 Finger Stick Blood Glucose 76 Intake and Output for Last 24 Hours 03/29/20 03/30/20 03/31/20 23:59 23:59 23:59 Intake Total 626.66 / 626.66 3427.17 / 3427.17 150 / 150 Output Total 300 / 300 1250 / 1250 200 / 200 Balance 326.66 / 326.66 2177.17 / 2177.17 -50 / -50 General: Alert, Oriented x3 HEENT: Atraumatic Oral: Moist Mucosa Neck: Supple Lungs: Clear to auscultation, - - Managed breath sounds in the bases Cardiovascular: Regular rate, Regular Rhythm Abdomen: Soft, Non Tender, Obese Extremities: - - There is an IV in place in the patient's left mid forearm cephalic vein. Bilateral radial arteries very difficult to palpate. Patient is obese. Veins are difficult to identify and deeply placed Microbiology Past 72 Hours 03/30/20 03:10 Stool Stool Occult Blood (WARREN) - Final 03/30/20 01:00 Urine, Clean Catch Legionella Antigen - Final 03/30/20 01:00 Urine, Clean Catch Streptococcus pneumoniae Antigen (M - Final Laboratory Results 03/30/20 01:00: Urine Total Protein Pending, Urine Albumin Pending, U Alpha-1- Globulin Pending, U Htmay-7-Xteahvdz Pending, U Beta Globulin Pending, U Gamma Globulin Pending 03/30/20 07:30: Blood Type O POSITIVE, Antibody Screen NEGATIVE, Crossmatch See Detail 03/30/20 11:21: POC Glucose 135 H 03/30/20 12:23: Sodium 139, Potassium 5.6 H, Chloride 115 H, Carbon Dioxide 18.0 L, Anion Gap 6, BUN 85 H, Creatinine 4.40 H, Estim Creat Clear Calc 16.96, Est GFR (MDRD) Af Amer 18 L, Est GFR (MDRD) Non-Af 14 L, BUN/Creatinine Ratio 19.3, Glucose 136 H, Calcium 7.9 L 03/30/20 14:02: POC Glucose 125 H 03/30/20 17:55: POC Glucose 207 H 03/30/20 19:05: Hgb 7.1 L, Hct 24.0 L 03/30/20 21:20: POC Glucose 180 H 03/31/20 01:58: POC Glucose 169 H 03/31/20 05:35: Sodium 138, Potassium 5.3 H, Chloride 112 H, Carbon Dioxide 18.0 L, BUN 90 H, Creatinine 4.85 H, Estim Creat Clear Calc 15.39, Est GFR (MDRD) Af Amer 16 L, Est GFR (MDRD) Non-Af 13 L, BUN/Creatinine Ratio 18.6, Glucose 130 H , Calcium 7.8 L, Phosphorus 5.9 H, Albumin 2.1 L 03/31/20 05:35: WBC 6.8, RBC 2.89 L, Hgb 7.3 L, Hct 25.2 L, MCV 87.2, MCH 25.3 L , MCHC 29.0 L, RDW Std Deviation 46.8 H, RDW Coeff of Lina 14.6, Plt Count 121 L, MPV 12.1 H, Immature Gran % (Auto) 0.400, Neut % (Auto) 68.5, Lymph % (Auto) 11.7 L, [place] % (Auto) 16.1 H, Eos % (Auto) 2.9, Baso % (Auto) 0.4, Absolute Neuts (auto) 4.6, Absolute Lymphs (auto) 0.79 L, Nucleated RBC % 0 03/31/20 06:13: POC Glucose 116 H 03/31/20 11:45: POC Glucose 171 H Current Medications Acetaminophen (Acetaminophen 325 Mg Tablet) 650 mg PO Q6H PRN PRN PRN Reason: Pain Score 1-10/Temp > 100.7 F Albuterol Sulfate (Albuterol 2.5 Mg/3 Ml Vial.Neb.) 2.5 mg INHALATION Q4H PRN PRN PRN Reason: SOB/WHEEZING Last Admin: 03/30/20 19:13 Dose: 2.5 mg Documented by: Aspirin (Aspirin E.C. 81 Mg Tablet) 81 mg PO DAILY [facility] Last Admin: 03/31/20 07:48 Dose: 81 mg Documented by: Carvedilol (Carvedilol 25 Mg Tablet) 25 mg PO BID [facility] Last Admin: 03/30/20 11:45 Dose: 25 mg Documented by: Cyanocobalamin (Cyanocobalamin 500 Mcg Tablet) 1,000 mcg PO DAILY [facility] Last Admin: 03/31/20 07:48 Dose: 1,000 mcg Documented by: Dextrose (Dextrose 50%-Water 25 Gm/50 Ml Disp.Syrin) 0 gm IV X1 PRN; Protocol PRN Reason: Hypoglycemia Ergocalciferol (Ergocalciferol 50,000 Unit Capsule) 50,000 unit PO QWEEK [facility] Ferrous Sulfate (Ferrous Sulfate 325 Mg Tablet) 325 mg PO DAILYCM [facility] Last Admin: 03/31/20 07:48 Dose: 325 mg Documented by: Glucagon (Glucagon 1 Mg/Ml Syringe) 1 mg IM .X1 PRN PRN Reason: Hypoglycemia Heparin Sodium (Porcine) (Heparin Injection (Vial) 5,000 Unit/Ml Vial) 5,000 unit SC Q8 [facility] Last Admin: 03/31/20 06:14 Dose: Not Given Documented by: Azithromycin 500 mg/ Dextrose 255 mls @ 250 mls/hr IV Q24H [facility] Last Infusion: 03/30/20 23:09 Dose: Infused Documented by: Ceftriaxone Sodium 2 gm/ (Sodium Chloride) 50 mls @ 100 mls/hr IV Q24H [facility] Last Infusion: 03/30/20 21:51 Dose: Infused Documented by: Sodium Chloride () 500 mls @ 15 mls/hr IV PRN PRN PRN Reason: Blood Transfusion Last Infusion: 03/30/20 13:56 Dose: 0 mls/hr Documented by: Sodium Chloride () 250 mls @ 15 mls/hr IV .[id number] PRN PRN Reason: Saline Flush Sodium Chloride () 250 mls @ 15 mls/hr IV .[id number] PRN PRN Reason: Additional IVPB Infusion Non-Formulary Medication (Guanfacine) 1 mg PO DAILY [facility] Ondansetron HCl (Ondansetron 4 Mg/2 Ml Vial) 4 mg IV Q8H PRN PRN PRN Reason: NAUSEA/VOMITING Pantoprazole Sodium (Pantoprazole Sodium 40 Mg Tablet) 40 mg PO DAILY [facility] Last Admin: 03/31/20 07:48 Dose: 40 mg Documented by: Polyethylene Glycol (Polyethylene Glycol 3350 17 Gm Packet) 34 gm PO X1 PRN PRN Reason: Bowel Movement Sodium Chloride (0.9% Saline Lock 10 Ml Syringe) 10 - 40 ml IV UD PRN PRN Reason: SALINE FLUSH Last Admin: 03/30/20 17:57 Dose: 10 ml Documented by: Assessment/Plan All Active Problems (Last Reviewed 03/29/20 @ 21:[address] Joe Montaño MD) Iron deficiency anemia (Acute) Nephrotic syndrome (Acute) Pneumonia (Acute) Hyperkalemia (Acute) Chronic kidney disease (CKD) (Acute) TIA (transient ischemic attack) (Resolved 09/19/18) Abrasion, left lower leg, initial encounter (Resolved) Contusion of left knee (Resolved) Contusion of lower leg, left (Resolved) Febrile illness (Resolved) History of small bowel obstruction (Resolved) Myocardial infarct (Resolved) Stroke-like symptoms (Resolved) Syncope (Resolved 10/16/18) history of traumatic pneumothorax (Resolved) After discussion the patient's presentation and chronic illness with Dr. Alberts I believe that the patient would be better benefited from placement of tunneled dialysis catheters more urgently. He did have bilateral upper extremity vein mapping performed yesterday. That would mean that he should be a future candidate for fistula creation although unfortunately there is currently IV placed within his left forearm cephalic vein which will likely preclude the use of that site I have checked with the operating room and unfortunately they do not have any time during normal work hours today. They state that we will have to place the catheters in after hours. I will continue to hold the patient n.p.o. and we will proceed with an OR time permits. Warren Valencia M.D., F.A.C.S.
--- NOTE | 2020-03-31 12:38 | PN.RENAL_ITS ---
Patient Problems: Active and Suspected Problems (Last Reviewed 03/29/20 @ 21:[address] Joe Montaño MD) Nephrotic syndrome (Acute) Pneumonia (Acute) Hyperkalemia (Acute) Chronic kidney disease (CKD) (Acute) Subjective: still with edema. Urine output poor with rising creatinine. 24h urine pending. Discussed initiating hemodialysis after line placement. Consulted Dr. Valencia for dialysis access. Hgb 7 with 2u prbc. Denies nausea, vomiting. Still with cough with thick secretions. - Physical Exam Vitals/I&O's: Vital Signs Temp Pulse Resp BP Pulse Ox 98.8 F 60 17 127/71 H 92 03/31/20 06:11 03/31/20 07:00 03/31/20 06:11 03/31/20 06:11 03/31/20 07:17 Oxygen Delivery Method Room Air Weight: 127.5 kg Body Mass Index (BMI) 41.5 Finger Stick Blood Glucose 76 Intake and Output for Last 24 Hours 03/29/20 03/30/20 03/31/20 23:59 23:59 23:59 Intake Total 626.66 / 626.66 3427.17 / 3427.17 630 / 630 Output Total 300 / 300 1250 / 1250 500 / 500 Balance 326.66 / 326.66 2177.17 / 2177.17 130 / 130 General: Alert, Oriented x3, Cooperative, No apparent distress Lungs: Clear to auscultation Cardiovascular: Regular rate Abdomen: Bowel Sounds Present, Non Tender, Distended, Obese Extremities: Edema - anasarca Musculoskeletal: - - gen weakness Neurological: Cranial nerves II-XII grossly intact, - - no tremor Psych/Mental Status: Normal Affect, Depressed, Alert and oriented to time, place, person, mood and affect Microbiology Past 72 Hours 03/30/20 03:10 Stool Stool Occult Blood ([facility]) - Final 03/30/20 01:00 Urine, Clean Catch Legionella Antigen - Final 03/30/20 01:00 Urine, Clean Catch Streptococcus pneumoniae Antigen (M - Final Laboratory Results 03/30/20 01:00: Urine Total Protein Pending, Urine Albumin Pending, U Cutep-4-Qnwrsxoe Pending, U Pdnyw-8-Hvdliiyn Pending, U Beta Globulin Pending, U Gamma Globulin Pending 03/30/20 07:30: Blood Type O POSITIVE, Antibody Screen NEGATIVE, Crossmatch See Detail 03/30/20 11:21: POC Glucose 135 H 03/30/20 12:23: Sodium 139, Potassium 5.6 H, Chloride 115 H, Carbon Dioxide 18.0 L, Anion Gap 6, BUN 85 H, Creatinine 4.40 H, Estim Creat Clear Calc 16.96, Est GFR (MDRD) Af Amer 18 L, Est GFR (MDRD) Non-Af 14 L, BUN/Creatinine Ratio 19.3, Glucose 136 H, Calcium 7.9 L 03/30/20 14:02: POC Glucose 125 H 03/30/20 17:55: POC Glucose 207 H 03/30/20 19:05: Hgb 7.1 L, Hct 24.0 L 03/30/20 21:20: POC Glucose 180 H 03/31/20 01:58: POC Glucose 169 H 03/31/20 05:35: Sodium 138, Potassium 5.3 H, Chloride 112 H, Carbon Dioxide 18.0 L, BUN 90 H, Creatinine 4.85 H, Estim Creat Clear Calc 15.39, Est GFR (MDRD) Af Amer 16 L, Est GFR (MDRD) Non-Af 13 L, BUN/Creatinine Ratio 18.6, Glucose 130 H, Calcium 7.8 L, Phosphorus 5.9 H, Albumin 2.1 L 03/31/20 05:35: WBC 6.8, RBC 2.89 L, Hgb 7.3 L, Hct 25.2 L, MCV 87.2, MCH 25.3 L , MCHC 29.0 L, RDW Std Deviation 46.8 H, RDW Coeff of Lina 14.6, Plt Count 121 L, MPV 12.1 H, Immature Gran % (Auto) 0.400, Neut % (Auto) 68.5, Lymph % (Auto) 11.7 L, [place] % (Auto) 16.1 H, Eos % (Auto) 2.9, Baso % (Auto) 0.4, Absolute Neuts (auto) 4.6, Absolute Lymphs (auto) 0.79 L, Nucleated RBC % 0 03/31/20 06:13: POC Glucose 116 H 03/31/20 11:45: POC Glucose 171 H Current Medications Acetaminophen (Acetaminophen 325 Mg Tablet) 650 mg PO Q6H PRN PRN PRN Reason: Pain Score 1-10/Temp > 100.7 F Albuterol Sulfate (Albuterol 2.5 Mg/3 Ml Vial.Neb.) 2.5 mg INHALATION Q4H PRN PRN PRN Reason: SOB/WHEEZING Last Admin: 03/30/20 19:13 Dose: 2.5 mg Documented by: Aspirin (Aspirin E.C. 81 Mg Tablet) 81 mg PO DAILY [facility] Last Admin: 03/31/20 07:48 Dose: 81 mg Documented by: Carvedilol (Carvedilol 25 Mg Tablet) 25 mg PO BID [facility] Last Admin: 03/30/20 11:45 Dose: 25 mg Documented by: Cyanocobalamin (Cyanocobalamin 500 Mcg Tablet) 1,000 mcg PO DAILY [facility] Last Admin: 03/31/20 07:48 Dose: 1,000 mcg Documented by: Dextrose (Dextrose 50%-Water 25 Gm/50 Ml Disp.Syrin) 0 gm IV X1 PRN; Protocol PRN Reason: Hypoglycemia Ergocalciferol (Ergocalciferol 50,000 Unit Capsule) 50,000 unit PO QWEEK [facility] Ferrous Sulfate (Ferrous Sulfate 325 Mg Tablet) 325 mg PO DAILYCM [facility] Last Admin: 03/31/20 07:48 Dose: 325 mg Documented by: Glucagon (Glucagon 1 Mg/Ml Syringe) 1 mg IM .X1 PRN PRN Reason: Hypoglycemia Heparin Sodium (Porcine) (Heparin Injection (Vial) 5,000 Unit/Ml Vial) 5,000 unit SC Q8 [facility] Last Admin: 03/31/20 06:14 Dose: Not Given Documented by: Azithromycin 500 mg/ Dextrose 255 mls @ 250 mls/hr IV Q24H [facility] Last Infusion: 03/30/20 23:09 Dose: Infused Documented by: Ceftriaxone Sodium 2 gm/ (Sodium Chloride) 50 mls @ 100 mls/hr IV Q24H [facility] Last Infusion: 03/30/20 21:51 Dose: Infused Documented by: Sodium Chloride () 500 mls @ 15 mls/hr IV PRN PRN PRN Reason: Blood Transfusion Last Infusion: 03/30/20 13:56 Dose: 0 mls/hr Documented by: Sodium Chloride () 250 mls @ 15 mls/hr IV .[id number] PRN PRN Reason: Saline Flush Sodium Chloride () 250 mls @ 15 mls/hr IV .[id number] PRN PRN Reason: Additional IVPB Infusion Non-Formulary Medication (Guanfacine) 1 mg PO DAILY [facility] Ondansetron HCl (Ondansetron 4 Mg/2 Ml Vial) 4 mg IV Q8H PRN PRN PRN Reason: NAUSEA/VOMITING Pantoprazole Sodium (Pantoprazole Sodium 40 Mg Tablet) 40 mg PO DAILY [facility] Last Admin: 03/31/20 07:48 Dose: 40 mg Documented by: Polyethylene Glycol (Polyethylene Glycol 3350 17 Gm Packet) 34 gm PO X1 PRN PRN Reason: Bowel Movement Sodium Chloride (0.9% Saline Lock 10 Ml Syringe) 10 - 40 ml IV UD PRN PRN Reason: SALINE FLUSH Last Admin: 03/30/20 17:57 Dose: 10 ml Documented by: Medical Necessity - Tobacco Use Smoking Status: Never smoker Assessment/Plan All Active Problems (Last Reviewed 03/29/20 @ 21:[address] Joe Montaño MD) Iron deficiency anemia (Acute) Nephrotic syndrome (Acute) Pneumonia (Acute) Hyperkalemia (Acute) Chronic kidney disease (CKD) (Acute) TIA (transient ischemic attack) (Resolved 09/19/18) Abrasion, left lower leg, initial encounter (Resolved) Contusion of left knee (Resolved) Contusion of lower leg, left (Resolved) Febrile illness (Resolved) History of small bowel obstruction (Resolved) Myocardial infarct (Resolved) Stroke-like symptoms (Resolved) Syncope (Resolved 10/16/18) history of traumatic pneumothorax (Resolved) 1. Acute on CKD Stage 4 vs progressive renal failure to ESRD. Check 24h urine, VM done. Initiate dialysis after line placement for rising creatinine, anasarca, fluid overload Discussed with pt and pt son and hospitalist 2. Hyperkalemia correct with kayexalate, bicarb, dialysis Follow low K diet 3. Iron def anemia start iv iron, s/p prbc 4. DM2 with nephrotic syndrome, 5. HTN stable 6. Anasarca due to nephrotic proteinuria. 7. LLL pna on antibx per primary service 8. Morbid obesity
--- NOTE | 2020-03-31 13:27 | CASEMGMT ---
Pt to be started on dialysis and is going down to get catheter placed at this time. As of this time, pt does not have any insurance on file but Caitlyn BOSCH is working on this at this time as pt states he had signed up for insurance but is unsure of what it is. CM to follow to set up OP dialysis. SStjacob LAY CM
[2020-03-31 13:56] LABS: Bedside Glucose 188 mg/dL (70-110)
[2020-03-31] MEDS: Cefazolin 2 GM in 0.9% Normal Saline 100 ML IV (14:10)
[2020-03-31] MEDS: Bupivacaine Mpf 0.5% 30 ML VIAL (14:15)
--- NOTE | 2020-03-31 14:18 | CASEMGMT ---
DANITZA checked back with patient and he said there is a snag so he will have to call them back. He said now he has to get dialysis and he isn't sure what to do. DANITZA received a call from patient's son. He said that they are working on finding out about the insurance patient signed up for. It is [facility]. He said patient tried to apply for Medicaid previously, but he got a letter stating he made too much to qualify for Medicaid. He said the letter also states something along the lines of if he goes on dialysis he would qualify for Medicaid automatically. DANITZA told him DANITZA is not sure this is accurate, but DANITZA can check. DANITZA suggested in the meantime he continue to find out about the insurance patient signed up for. Sasha FREIRE NUCLEAR PHYSICIAN
[2020-03-31] MEDS: Heparin 10,000 UNITS/10 ML Vial 10000 UNITS (14:20)
--- NOTE | 2020-03-31 14:24 | OP.PCM_ITS ---
Problem List (1) Nephrotic syndrome Status: Acute (2) Chronic kidney disease (CKD) Status: Acute Qualifiers: Chronic kidney disease stage: stage 4 (severe) Qualified Code(s): N18.4 - Chronic kidney disease, stage 4 (severe) Report of Operation Date of Procedure: 03/31/20 Pre-Operative Diagnosis: Acute on chronic renal insufficiency Post-Operative Diagnosis: Same Surgery/Procedure Performed:: Right internal jugular tunneled double-lumen palindrome catheter Description of Surgical Findings:: Timeout and informed consent was obtained. 64-year-old gentleman was taken to the operating placed supine on the table underwent monitored anesthesia care. Ancef 2 g were given intravenously. 1% lidocaine mixed 50-50 with 0.5% Marcaine was utilized as local anesthetic. The right neck and chest were sterilely prepped and draped. Under ultrasound guidance the right internal jugular vein w as identified local was instilled. Micropuncture technique was used to gain access to the right internal jugular vein under ultrasound guidance. Then this was up sheath with a micropuncture sheath and an 035 J-wire. Local was instilled down upon the right chest wall. A 19 cm precurved palindrome catheter was tunneled from the chest to the neck. Serial dilatation was performed over the J-wire with fluoroscopic control. This sheath dilator was inserted the wire and dilator were removed the catheter was advanced through the sheath the sheath was split. The catheter was positioned at the SVC atrial junction. It aspirated readily. It was flushed with saline and then 1.6 cc of heparinized saline per channel. The neck site was closed interrupted 5-0 Vicryl subdermal stitch. The catheter was secured to the skin with 3-0 nylon. Silver impregnated dressing applied at the exit site Telfa OpSite at the neck site. Sponge and instrument and needle counts were reported to the surgeon to be correct. Blood loss was minimal. He tolerated the procedure well was taken to the recovery area in satisfactory edition without apparent complication. Specimens none. Drains none. Blood loss minimal. Chest x-ray pending. Warren Valencia M.D., F.A.C.S. Type of Anesthesia:: Local MAC Anesthesiologist: Pedro Brewster
[2020-03-31 14:54] LABS: 24 Hour Urine Protein 1846.8 mg/24HR (<150 MG/24HR); 24HR. UA Prot. Total Volume 775 mL; 24HR. Urine Creatinine 1.08 g/24 HR (0.90-2.10); Creat.Clear Total Volume 775 mL; Creatinine Clearance 16 ml/min (100-200); Creatinine Serum Creat 4.9 mg/dL (0.8-1.3); EST Glomerular Filtration Rate 13 mL/min (>60); Est Glom Filt Rate - Afr Amer 16 mL/min (>60); Urine Protein (24 Hour) 238.3 mg/dL (<11.9)
--- NOTE | 2020-03-31 15:13 | PCM.PN.HOSP ---
Patient Problems: Active and Suspected Problems (Last Reviewed 03/29/20 @ 21:[address] Joe Montaño MD) Nephrotic syndrome (Acute) Pneumonia (Acute) Hyperkalemia (Acute) Chronic kidney disease (CKD) (Acute) Reason for Visit: Follow-up on hyperkalemia/ANGELIA Subjective: Patient was seen and examined. He had 1 unit of blood transfused yesterday. He completed his 24-hour urine collection today. Denied any chest pain or breathing issues. Objective: Physical exam: General: Alert, Oriented x3, Cooperative, No apparent distress HEENT: Atraumatic, PERRLA, EOMI, Normocephalic Oral: Moist Mucosa Neck: Supple Lungs: Diminished Cardiovascular: Regular rate, Regular Rhythm, Normal S1, Normal S2, No murmurs Abdomen: Bowel Sounds Present, Soft, Non Tender, Non-Distended, No Hepato-splenomegaly Extremities: Edema - Edema +1-2, multiple chronic venous stasis ulcers, or pain, with surrounding erythema Skin: No rashes Musculoskeletal: No Tenderness to Palpation of Joints or Extremities Lymphatic: No Cervical, Supraclavicular, or Inguinal Adenopathy Neurological: Cranial nerves II-XII grossly intact, Neuro grossly intact Psych/Mental Status: Normal Affect, Appropriate Vitals/I&O's: Vital Signs Temp Pulse Resp BP Pulse Ox 98.5 F 63 16 156/69 H 94 03/31/20 15:05 03/31/20 15:05 03/31/20 15:05 03/31/20 15:05 03/31/20 15:05 Oxygen Delivery Method Room Air Weight: 127.5 kg Body Mass Index (BMI) 41.5 Finger Stick Blood Glucose 76 Intake and Output for Last 24 Hours 03/29/20 03/30/20 03/31/20 23:59 23:59 23:59 Intake Total 626.66 / 626.66 3427.17 / 3427.17 740 / 740 Output Total 300 / 300 1250 / 1250 600 / 600 Balance 326.66 / 326.66 2177.17 / 2177.17 140 / 140 Microbiology Past 72 Hours 03/30/20 03:10 Stool Stool Occult Blood (WARREN) - Final 03/30/20 01:00 Urine, Clean Catch Legionella Antigen - Final 03/30/20 01:00 Urine, Clean Catch Streptococcus pneumoniae Antigen (M - Final Laboratory Results 03/30/20 07:30: Crossmatch See Detail 03/30/20 17:55: POC Glucose 207 H 03/30/20 19:05: Hgb 7.1 L, Hct 24.0 L 03/30/20 21:20: POC Glucose 180 H 03/31/20 01:58: POC Glucose 169 H 03/31/20 05:35: Sodium 138, Potassium 5.3 H, Chloride 112 H, Carbon Dioxide 18.0 L, BUN 90 H, Creatinine 4.85 H, Estim Creat Clear Calc 15.39, Est GFR (MDRD) Af Amer 16 L, Est GFR (MDRD) Non-Af 13 L, BUN/Creatinine Ratio 18.6, Glucose 130 H, Calcium 7.8 L, Phosphorus 5.9 H, Albumin 2.1 L 03/31/20 05:35: WBC 6.8, RBC 2.89 L, Hgb 7.3 L, Hct 25.2 L, MCV 87.2, MCH 25.3 L, MCHC 29.0 L, RDW Std Deviation 46.8 H, RDW Coeff of Lina 14.6, Plt Count 121 L, MPV 12.1 H, Immature Gran % (Auto) 0.400, Neut % (Auto) 68.5, Lymph % (Auto) 11.7 L, [place] % (Auto) 16.1 H, Eos % (Auto) 2.9, Baso % (Auto) 0.4, Absolute Neuts (auto) 4.6, Absolute Lymphs (auto) 0.79 L, Nucleated RBC % 0 03/31/20 06:13: POC Glucose 116 H 03/31/20 11:45: POC Glucose 171 H 03/31/20 13:00: Creatinine 4.9 H, Est GFR (MDRD) Af Amer 16 L, Est GFR (MDRD) Non-Af 13 L, Urine Collection Time 24.0, Timed Urine Volume 775, Urine Creatinine 143.0, Creatinine Clearance 16 L 03/31/20 13:00: Urine Collection Time 24.0, Ur Collection Duration 24.0, Urine Total Volume 0.80, Timed Urine Volume 775, Urine Creatinine 140.00, Ur Creatinine 24 Hour 1.08, Ur Total Protein 24 Hr 1846.8 H, Urine Total Protein 238.3 H 03/31/20 13:51: POC Glucose 188 H Current Medications Acetaminophen (Acetaminophen 325 Mg Tablet) 650 mg PO Q6H PRN PRN PRN Reason: Pain Score 1-10/Temp > 100.7 F Albuterol Sulfate (Albuterol 2.5 Mg/3 Ml Vial.Neb.) 2.5 mg INHALATION Q4H PRN PRN PRN Reason: SOB/WHEEZING Last Admin: 03/30/20 19:13 Dose: 2.5 mg Documented by: Aspirin (Aspirin E.C. 81 Mg Tablet) 81 mg PO DAILY [facility] Last Admin: 03/31/20 07:48 Dose: 81 mg Documented by: Carvedilol (Carvedilol 25 Mg Tablet) 25 mg PO BID [facility] Last Admin: 03/30/20 11:45 Dose: 25 mg Documented by: Cyanocobalamin (Cyanocobalamin 500 Mcg Tablet) 1,000 mcg PO DAILY [facility] Last Admin: 03/31/20 07:48 Dose: 1,000 mcg Documented by: Dextrose (Dextrose 50%-Water 25 Gm/50 Ml Disp.Syrin) 0 gm IV X1 PRN; Protocol PRN Reason: Hypoglycemia Ergocalciferol (Ergocalciferol 50,000 Unit Capsule) 50,000 unit PO QWEEK [facility] Glucagon (Glucagon 1 Mg/Ml Syringe) 1 mg IM .X1 PRN PRN Reason: Hypoglycemia Guanfacine HCl (Guanfacine Hcl 1 Mg Tab.Er.24h) 1 mg PO DAILY@2200 [facility] Heparin Sodium (Porcine) (Heparin Injection (Vial) 5,000 Unit/Ml Vial) 5,000 unit SC Q8 [facility] Last Admin: 03/31/20 13:03 Dose: Not Given Documented by: Azithromycin 500 mg/ Dextrose 255 mls @ 250 mls/hr IV Q24H [facility] Last Infusion: 03/30/20 23:09 Dose: Infused Documented by: Ceftriaxone Sodium 2 gm/ (Sodium Chloride) 50 mls @ 100 mls/hr IV Q24H [facility] Last Infusion: 03/30/20 21:51 Dose: Infused Documented by: Sodium Chloride () 500 mls @ 15 mls/hr IV PRN PRN PRN Reason: Blood Transfusion Last Infusion: 03/30/20 13:56 Dose: 0 mls/hr Documented by: Sodium Chloride () 250 mls @ 15 mls/hr IV .[id number] PRN PRN Reason: Saline Flush Sodium Chloride () 250 mls @ 15 mls/hr IV .[id number] PRN PRN Reason: Additional IVPB Infusion Multivit/Ca Carb/B Cmplx/FA/Prenat (Folic Acid/Vitamin B Comp W-C 1 Capsule) 1 capsule PO DAILY [facility] Last Admin: 03/31/20 13:03 Dose: Not Given Documented by: Ondansetron HCl (Ondansetron 4 Mg/2 Ml Vial) 4 mg IV Q8H PRN PRN PRN Reason: NAUSEA/VOMITING Pantoprazole Sodium (Pantoprazole Sodium 40 Mg Tablet) 40 mg PO DAILY [facility] Last Admin: 03/31/20 07:48 Dose: 40 mg Documented by: Polyethylene Glycol (Polyethylene Glycol 3350 17 Gm Packet) 34 gm PO X1 PRN PRN Reason: Bowel Movement Sodium Chloride (0.9% Saline Lock 10 Ml Syringe) 10 - 40 ml IV UD PRN PRN Reason: SALINE FLUSH Last Admin: 03/30/20 17:57 Dose: 10 ml Documented by: STROKE Vital Signs/Narrative: Vital Signs Temp Pulse Resp BP Pulse Ox 03/31/20 15:05 98.5 F 63 16 156/69 H 94 03/31/20 15:00 66 16 146/62 H 94 03/31/20 14:55 69 16 159/62 H 95 03/31/20 14:50 70 16 161/70 H 94 03/31/20 14:45 72 16 157/77 H 96 03/31/20 14:41 97.8 F 73 16 148/70 H 95 03/31/20 12:10 98.6 F 72 18 144/70 H 98 Medical Necessity - Tobacco Use Smoking Status: Never smoker Assessment/Plan All Active Problems (Last Reviewed 03/29/20 @ 21:[address] Joe Montaño MD) Iron deficiency anemia (Acute) Nephrotic syndrome (Acute) Pneumonia (Acute) Hyperkalemia (Acute) Chronic kidney disease (CKD) (Acute) TIA (transient ischemic attack) (Resolved 09/19/18) Abrasion, left lower leg, initial encounter (Resolved) Contusion of left knee (Resolved) Contusion of lower leg, left (Resolved) Febrile illness (Resolved) History of small bowel obstruction (Resolved) Myocardial infarct (Resolved) Stroke-like symptoms (Resolved) Syncope (Resolved 10/16/18) history of traumatic pneumothorax (Resolved) 1. Hyperkalemia, improved, potassium now is 5.6 Status post Kayexalate and Miralax Off losartan, will give another dose of Kayexalate Will continue to monitor 2. ANGELIA on CKD stage IV, previous creatinine of 3.1, admitted creatinine of 4.32, worsening Creatinine today is 4.85. General surgery consulted for tunneled dialysis Follows with nephrology in the outpatient, losartan on hold, will continue to monitor 3. Acute on chronic anemia of CKD, status post 1 unit pBC; repeat Hb is 7.3 Patient was admitted with hemoglobin of 7.7. Previous hemoglobin was 9.1 Stool for occult blood is negative. of packed RBCs Repeat blood work in a.m. 4. Pneumonia, without hypoxia, slowly improving, urine sodium growth and Legionella antigen negative Continue on IV ceftriaxone and azithromycin 5. Hypoglycemia, resolved, history of type II DM, BS are controlled. Home Lantus insulin and glyburide on hold Will continue to monitor 6. Chronic venostasis with chronic leg ulcers with mild erythema 7. Hypertension, blood pressure was relatively low Amlodipine and losartan on hold. Continued on carvedilol We will continue to monitor 8. DVT prophylaxis with heparin SC Inpatient E&M: [id number] [facility] L3
--- NOTE | 2020-03-31 15:24 | RAD_ITS ---
STUDY: X-RAY CHEST REASON FOR EXAM: Male, 64 years old. POST HEMODIALYSIS CATH PLACEMENT TECHNIQUE: Single AP portable view of the chest. COMPARISON: Comparison is made with prior study dated 03/29/2020. FINDINGS: A right-sided dialysis catheter has been placed with the tip in the midportion of the superior vena cava. EKG electrodes are seen. Mild residual increased markings are seen at the lung bases slightly more prominent on the right side. There is no demonstrated pleural abnormality. Normal size heart. Normal mediastinum and lydia. Normal visualized pulmonary arteries. Normal visualized aortic arch and descending thoracic aorta. There are diffuse degenerative changes of the visualized thoracic spine. Normal visualized ribs, clavicles, and shoulders. There is no demonstrated abnormality of the visualized soft tissue structures of the upper abdomen. RAD/CXR for Line Placement IMPRESSION: The tip of the hemodialysis catheter is in the midportion of the superior vena cava Electronically Signed: Rigo Liriano, at 15:37 EST , Service support ,
[2020-03-31 16:20] LABS: Bedside Glucose 182 mg/dL (70-110)
[2020-03-31 16:28] LABS: Haptoglobin 317 mg/dL (32-363)
[2020-03-31] MEDS: Epoetin Alfa epbx 10,000 UNITS/ML 10000 UNIT IV (17:10)
--- NOTE | 2020-03-31 20:23 | DIALYSIS ---
HD x 2 hours complete. Tolerated tx well. UF of 2000ml. Used right chest wall catheter. Catheter closed with heparin per fill volume. Caps placed. Dressing is dry and intact. Retacrit and Venofer given as ordered. Report was given to ALIREZA Nazario.
[2020-03-31] MEDS: Heparin 10,000 UNITS/10 ML Vial IV (21:12)
[2020-03-31] MEDS: Heparin Injection (Vial) 5,000 UNIT/ML VIAL 5000 UNIT SC (22:42)
[2020-03-31] MEDS: GUANFACINE HCL 1 MG TAB.ER.24H PO (22:42)
[2020-03-31 23:21] LABS: Bedside Glucose 180 mg/dL (70-110)
[2020-04-01] VITALS (12 sets, daily range): BP systolic 139–166; BP diastolic 62–82; PULSE 70–82; RESP 16–18; TEMP 36.8–37.3; O2SAT 94–97
[2020-04-01 03:36] LABS: Bedside Glucose 162 mg/dL (70-110)
--- NOTE | 2020-04-01 06:13 | PCM.PN.BLA ---
Progress Note Verbal report per nursing Catheter site functioned well with a hemodialysis last night. No bleeding. No patient concern. Warren Valencia M.D., F.A.C.S. STROKE Vital Signs/Narrative: Vital Signs Pulse 04/01/20 03:00 73
[2020-04-01] MEDS: Heparin Injection (Vial) 5,000 UNIT/ML VIAL 5000 UNIT SC ×3 (06:18→22:10)
[2020-04-01 06:52] LABS: Absolute Lymphocyte Count 0.69 X10^3/uL (0.83-4.51); Absolute Neutrophil Count 4.3 X10^3/uL (2.0-7.7); Basophil# 0.03 X10^3/uL; Basophil% 0.5 % (0-1); Eosinophil# 0.25 X10^3/uL; Eosinophils% 3.8 % (0-5); Hematocrit 24.2 % (40-54); Hemoglobin 7.3 g/dL (13.0-16.5); Lymphocyte # 0.69 X10^3/ul (4.0); Lymphocyte % 10.4 % (19-41); Mean Corp Hgb Conc 30.2 g/dL (32-36); Mean Corpuscular Hgb 25.3 pg (27.0-32.0); Mean Corpuscular Volume 83.7 fL (80-94); Mean Platelet Vol. 12.1 fl (6.2-12.0); Monocyte# 1.31 X10^3/uL; Monocyte% 19.8 % (0-10); NRBC Flagged by Analyzer 0 % (0-5); Neutrophil # 4.33 X10^3/uL (2.7-7.7); Neutrophil % 65.2 % (47-70); Platelet Count 129 K/mm3 (150-450); RBC Distribution Width CV 14.5 % (11.6-14.6); RBC Distribution Width SD 44.1 fl (35.1-43.9); Red Blood Count 2.89 M/mm3 (4.6-6.2); White Blood Count 6.6 K/mm3 (4.4-11.0)
[2020-04-01 07:06] LABS: Bedside Glucose 117 mg/dL (70-110)
[2020-04-01 07:28] LABS: BUN 71 mg/dL (7-18); BUN/Creat Ratio 17.8 RATIO (10-20); Calcium,Total 7.7 mg/dL (8.5-10.1); Chloride 108 mmol/L (98-107); EST Glomerular Filtration Rate 16 mL/min (>60); Est Glom Filt Rate - Afr Amer 20 mL/min (>60); Estimated Creatinine Clearance 18.66 ml/min; Glucose 131 mg/dL (74-106); Phosphorus 5.4 mg/dL (2.5-4.9); Potassium 4.6 mmol/L (3.5-5.1); Sodium Level 138 mmol/L (136-145)
--- NOTE | 2020-04-01 07:52 | PN_ITS ---
Patient Problems: Active and Suspected Problems (Last Reviewed 03/29/20 @ 21:[address] Joe Montaño MD) Nephrotic syndrome (Acute) Pneumonia (Acute) Hyperkalemia (Acute) Chronic kidney disease (CKD) (Acute) Reason for Visit: Follow-up on hyperkalemia/ANGELIA Subjective: Patient was seen and examined. He had dialysis yesterday and about 2 L of fluid was removed. He feels much improved. Dialysis planned for today. Denied chest pain or dizziness or palpitation. Objective: Physical exam: General: Alert, Oriented x3, Cooperative, No apparent distress HEENT: Atraumatic, PERRLA, EOMI, Normocephalic Oral: Moist Mucosa Neck: Supple Lungs: Diminished Cardiovascular: Regular rate, Regular Rhythm, Normal S1, Normal S2, No murmurs Abdomen: Bowel Sounds Present, Soft, Non Tender, Non-Distended, No Hepato- splenomegaly Extremities: Edema - Edema +1-2, multiple chronic venous stasis ulcers, or pain, with surrounding erythema Skin: No rashes Musculoskeletal: No Tenderness to Palpation of Joints or Extremities Lymphatic: No Cervical, Supraclavicular, or Inguinal Adenopathy Neurological: Cranial nerves II-XII grossly intact, Neuro grossly intact Psych/Mental Status: Normal Affect, Appropriate Vitals/I&O's: Vital Signs Temp Pulse Resp BP Pulse Ox 99.1 F 74 18 151/66 H 94 04/01/20 06:46 04/01/20 06:46 04/01/20 06:46 04/01/20 06:46 04/01/20 06:48 Oxygen Delivery Method Room Air Weight: 127.5 kg Body Mass Index (BMI) 41.5 Finger Stick Blood Glucose 76 Intake and Output for Last 24 Hours 03/30/20 03/31/20 04/01/20 23:59 23:59 23:59 Intake Total 3427.17 / 3427.17 1285 / 1525 340 / 340 Output Total 1250 / 1250 800 / 1200 700 / 700 Balance 2177.17 / 2177.17 485 / 325 -360 / -360 Microbiology Past 72 Hours 03/30/20 03:10 Stool Stool Occult Blood (WARREN) - Final 03/30/20 01:00 Urine, Clean Catch Legionella Antigen - Final 03/30/20 01:00 Urine, Clean Catch Streptococcus pneumoniae Antigen (M - Final Laboratory Results 03/30/20 01:00: Urine Total Protein Pending, Urine Albumin Pending, U [id number] Pending, U Onvbn-1-Hayhhlgt Pending, U Beta Globulin Pending, U Gamma Globulin Pending 03/30/20 05:37: Haptoglobin 317 03/31/20 11:45: POC Glucose 171 H 03/31/20 13:00: Creatinine 4.9 H, Est GFR (MDRD) Af Amer 16 L, Est GFR (MDRD) Non-Af 13 L, Urine Collection Time 24.0, Timed Urine Volume 775, Urine Creatinine 143.0, Creatinine Clearance 16 L 03/31/20 13:00: Urine Collection Time 24.0, Ur Collection Duration 24.0, Urine Total Volume 0.80, Timed Urine Volume 775, Urine Creatinine 140.00, Ur Creatinine 24 Hour 1.08, Ur Total Protein 24 Hr 1846.8 H, Urine Total Protein 238.3 H 03/31/20 13:51: POC Glucose 188 H 03/31/20 15:53: POC Glucose 182 H 03/31/20 18:43: Hep B Core Total Ab Pending 03/31/20 18:43: Hep Bs Antigen Pending 03/31/20 18:43: Hep Bs Antibody Pending 03/31/20 22:56: POC Glucose 180 H 04/01/20 02:01: POC Glucose 162 H 04/01/20 05:20: Sodium 138, Potassium 4.6, Chloride 108 H, Carbon Dioxide 21.0, BUN 71 H, Creatinine 4.00 H, Estim Creat Clear Calc 18.66, Est GFR (MDRD) Af Amer 20 L, Est GFR (MDRD) Non-Af 16 L, BUN/Creatinine Ratio 17.8, Glucose 131 H, Calcium 7.7 L, Phosphorus 5.4 H, Albumin 2.0 L 04/01/20 05:20: WBC 6.6, RBC 2.89 L, Hgb 7.3 L, Hct 24.2 L, MCV 83.7, MCH 25.3 L , MCHC 30.2 L, RDW Std Deviation 44.1 H, RDW Coeff of Lina 14.5, Plt Count 129 L, MPV 12.1 H, Immature Gran % (Auto) 0.300, Neut % (Auto) 65.2, Lymph % (Auto) 10.4 L, [place] % (Auto) 19.8 H, Eos % (Auto) 3.8, Baso % (Auto) 0.5, Absolute Neuts (auto) 4.3, Absolute Lymphs (auto) 0.69 L, Nucleated RBC % 0 04/01/20 06:54: POC Glucose 117 H Current Medications Acetaminophen (Acetaminophen 325 Mg Tablet) 650 mg PO Q6H PRN PRN PRN Reason: Pain Score 1-10/Temp > 100.7 F Albuterol Sulfate (Albuterol 2.5 Mg/3 Ml Vial.Neb.) 2.5 mg INHALATION Q4H PRN PRN PRN Reason: SOB/WHEEZING Last Admin: 03/30/20 19:13 Dose: 2.5 mg Documented by: Aspirin (Aspirin E.C. 81 Mg Tablet) 81 mg PO DAILY [facility] Last Admin: 03/31/20 07:48 Dose: 81 mg Documented by: Carvedilol (Carvedilol 25 Mg Tablet) 25 mg PO BID [facility] Last Admin: 03/30/20 11:45 Dose: 25 mg Documented by: Cyanocobalamin (Cyanocobalamin 500 Mcg Tablet) 1,000 mcg PO DAILY [facility] Last Admin: 03/31/20 07:48 Dose: 1,000 mcg Documented by: Dextrose (Dextrose 50%-Water 25 Gm/50 Ml Disp.Syrin) 0 gm IV X1 PRN; Protocol PRN Reason: Hypoglycemia Ergocalciferol (Ergocalciferol 50,000 Unit Capsule) 50,000 unit PO QWEEK [facility] Glucagon (Glucagon 1 Mg/Ml Syringe) 1 mg IM .X1 PRN PRN Reason: Hypoglycemia Guanfacine HCl (Guanfacine Hcl 1 Mg Tab.Er.24h) 1 mg PO DAILY@2200 [facility] Last Admin: 03/31/20 22:42 Dose: 1 mg Documented by: Heparin Sodium (Porcine) (Heparin Injection (Vial) 5,000 Unit/Ml Vial) 5,000 unit SC Q8 [facility] Last Admin: 04/01/20 06:18 Dose: 5,000 unit Documented by: Azithromycin 500 mg/ Dextrose 255 mls @ 250 mls/hr IV Q24H [facility] Last Infusion: 03/31/20 23:45 Dose: Infused Documented by: Ceftriaxone Sodium 2 gm/ (Sodium Chloride) 50 mls @ 100 mls/hr IV Q24H [facility] Last Infusion: 03/31/20 21:55 Dose: Infused Documented by: Sodium Chloride () 500 mls @ 15 mls/hr IV PRN PRN PRN Reason: Blood Transfusion Last Infusion: 03/30/20 13:56 Dose: 0 mls/hr Documented by: Sodium Chloride () 250 mls @ 15 mls/hr IV .[id number] PRN PRN Reason: Saline Flush Sodium Chloride () 250 mls @ 15 mls/hr IV .[id number] PRN PRN Reason: Additional IVPB Infusion Multivit/Ca Carb/B Cmplx/FA/Prenat (Folic Acid/Vitamin B Comp W-C 1 Capsule) 1 capsule PO DAILY [facility] Last Admin: 03/31/20 13:03 Dose: Not Given Documented by: Ondansetron HCl (Ondansetron 4 Mg/2 Ml Vial) 4 mg IV Q8H PRN PRN PRN Reason: NAUSEA/VOMITING Pantoprazole Sodium (Pantoprazole Sodium 40 Mg Tablet) 40 mg PO DAILY [facility] Last Admin: 03/31/20 07:48 Dose: 40 mg Documented by: Polyethylene Glycol (Polyethylene Glycol 3350 17 Gm Packet) 34 gm PO X1 PRN PRN Reason: Bowel Movement Sodium Chloride (0.9% Saline Lock 10 Ml Syringe) 10 - 40 ml IV UD PRN PRN Reason: SALINE FLUSH Last Admin: 03/30/20 17:57 Dose: 10 ml Documented by: STROKE Vital Signs/Narrative: Vital Signs Temp Pulse Resp BP Pulse Ox 04/01/20 06:48 94 04/01/20 06:46 99.1 F 74 18 151/66 H 94 Medical Necessity - Tobacco Use Smoking Status: Never smoker Assessment/Plan All Active Problems (Last Reviewed 03/29/20 @ 21:[address] Joe Montaño MD) Iron deficiency anemia (Acute) Nephrotic syndrome (Acute) Pneumonia (Acute) Hyperkalemia (Acute) Chronic kidney disease (CKD) (Acute) TIA (transient ischemic attack) (Resolved 09/19/18) Abrasion, left lower leg, initial encounter (Resolved) Contusion of left knee (Resolved) Contusion of lower leg, left (Resolved) Febrile illness (Resolved) History of small bowel obstruction (Resolved) Myocardial infarct (Resolved) Stroke-like symptoms (Resolved) Syncope (Resolved 10/16/18) history of traumatic pneumothorax (Resolved) 1. Hyperkalemia, resolved Status post Kayexalate and Miralax Will continue to monitor losartan 2. ANGELIA on CKD stage IV, previous creatinine of 3.1, admitted creatinine of 4.32, worsening Creatinine today is 4.6. General surgery consulted for tunneled dialysis Follows with nephrology in the outpatient, losartan on hold, will continue to monitor 3. Acute on chronic anemia of CKD, status post 1 unit pBC; repeat Hb is 7.3 Patient was admitted with hemoglobin of 7.7. Previous hemoglobin was 9.1 Stool for occult blood is negative. of packed RBCs Repeat blood work in a.m. 4. Pneumonia, without hypoxia, slowly improving, urine sodium growth and Legionella antigen negative Continue on IV ceftriaxone and azithromycin 5. Hypoglycemia, resolved, history of type II DM, BS are controlled. Home Lantus insulin and glyburide on hold Will continue to monitor 6. Chronic venostasis with chronic leg ulcers with mild erythema 7. Hypertension, blood pressure was relatively low Amlodipine and losartan on hold. Continued on carvedilol We will continue to monitor 8. DVT prophylaxis with heparin SC Inpatient E&M: 21957 Subs Hosp L2
--- NOTE | 2020-04-01 10:16 | CASEMGMT ---
Addendum entered by Sasha Olivas 04/01/20 11:11: SW did find Miranda's information on the internet. She is with [employer] with [employer]. DANITZA called the number listed and left another message requesting a return call. DANITZA did not leave any patient identifying information. Sasha DRIVER Original Note: SW spoke with patient about his insurance. He asked SW to call his son as he found out more information. SW called patient's son Eber. He said he did find out more information. The insurance is [employer] and his ID number is [id number]. He said his dad didn't finish the application so it won't go into effect until today. SW thanked him for the assistance. DANITZA called [facility] registration and they could not verify this insurance. It is not coming up in their system. SW called [employer] and the ID number is not coming up in their system nor is the patient. DANITZA called patient's son back and asked if he had the phone number or contact information for the individual he spoke with. He said his dad did not complete the application so he did last night with this lady and she said it would start today. Her name is Miranda Vasquez or Francisco Javier and her phone number is [phone]. SW called this phone number and left a message. DANITZA did not leave patient's information. DANITZA went and spoke with patient and let him know what is going on. He said SW can talk with her or anyone else to help figure this out. Await return call from Miranda. Sasha F[employer]IRE [employer]NAGER [employer]
[2020-04-01 10:41] LABS: Hepatitis B Surface Antibody Non-Reactive
--- NOTE | 2020-04-01 10:44 | PCM.PN.REN ---
Patient Problems: Active and Suspected Problems (Last Reviewed 03/29/20 @ 21:[address] Joe Montaño MD) Nephrotic syndrome (Acute) Pneumonia (Acute) Hyperkalemia (Acute) Chronic kidney disease (CKD) (Acute) Subjective: still with anasarca. Tolerated dialysis well last night 2L fluid removed. No SOB, CP. Potassium improved. - Physical Exam Vitals/I&O's: Vital Signs Temp Pulse Resp BP Pulse Ox 99.1 F 76 18 151/66 H 94 04/01/20 06:46 04/01/20 07:00 04/01/20 06:46 04/01/20 06:46 04/01/20 06:48 Oxygen Delivery Method Room Air Weight: 127.5 kg Body Mass Index (BMI) 41.5 Finger Stick Blood Glucose 76 Intake and Output for Last 24 Hours 03/30/20 03/31/20 04/01/20 23:59 23:59 23:59 Intake Total 3427.17 / 3427.17 1285 / 1525 340 / 340 Output Total 1250 / 1250 800 / 1200 700 / 700 Balance 2177.17 / 2177.17 485 / 325 -360 / -360 General: Alert, Oriented x3, Cooperative, No apparent distress Lungs: Clear to auscultation Cardiovascular: Regular rate Abdomen: Bowel Sounds Present, Distended, Obese Extremities: Edema - anasarca Neurological: - - weakness Psych/Mental Status: Normal Affect, Alert and oriented to time, place, person, mood and affect Microbiology Past 72 Hours 03/30/20 03:10 Stool Stool Occult Blood ([facility]) - Final 03/30/20 01:00 Urine, Clean Catch Legionella Antigen - Final 03/30/20 01:00 Urine, Clean Catch Streptococcus pneumoniae Antigen (M - Final Laboratory Results 03/30/20 01:00: Urine Total Protein Pending, Urine Albumin Pending, U [id number]-[id number] Pending, U Uvgne-2-Dxnunqbs Pending, U Beta Globulin Pending, U Gamma Globulin Pending 03/30/20 05:37: Haptoglobin 317 03/31/20 11:45: POC Glucose 171 H 03/31/20 13:00: Creatinine 4.9 H, Est GFR (MDRD) Af Amer 16 L, Est GFR (MDRD) Non-Af 13 L, Urine Collection Time 24.0, Timed Urine Volume 775, Urine Creatinine 143.0, Creatinine Clearance 16 L 03/31/20 13:00: Urine Collection Time 24.0, Ur Collection Duration 24.0, Urine Total Volume 0.80, Timed Urine Volume 775, Urine Creatinine 140.00, Ur Creatinine 24 Hour 1.08, Ur Total Protein 24 Hr 1846.8 H, Urine Total Protein 238.3 H 03/31/20 13:51: POC Glucose 188 H 03/31/20 15:53: POC Glucose 182 H 03/31/20 18:43: Hep B Core Total Ab Pending 03/31/20 18:43: Hep Bs Antigen Pending 03/31/20 18:43: Hep Bs Antibody Non-Reactive 03/31/20 22:56: POC Glucose 180 H 04/01/20 02:01: POC Glucose 162 H 04/01/20 05:20: Sodium 138, Potassium 4.6, Chloride 108 H, Carbon Dioxide 21.0, BUN 71 H, Creatinine 4.00 H, Estim Creat Clear Calc 18.66, Est GFR (MDRD) Af Amer 20 L, Est GFR (MDRD) Non-Af 16 L, BUN/Creatinine Ratio 17.8, Glucose 131 H, Calcium 7.7 L, Phosphorus 5.4 H, Albumin 2.0 L 04/01/20 05:20: WBC 6.6, RBC 2.89 L, Hgb 7.3 L, Hct 24.2 L, MCV 83.7, MCH 25.3 L, MCHC 30.2 L, RDW Std Deviation 44.1 H, RDW Coeff of Lina 14.5, Plt Count 129 L, MPV 12.1 H, Immature Gran % (Auto) 0.300, Neut % (Auto) 65.2, Lymph % (Auto) 10.4 L, [place] % (Auto) 19.8 H, Eos % (Auto) 3.8, Baso % (Auto) 0.5, Absolute Neuts (auto) 4.3, Absolute Lymphs (auto) 0.69 L, Nucleated RBC % 0 04/01/20 06:54: POC Glucose 117 H Current Medications Acetaminophen (Acetaminophen 325 Mg Tablet) 650 mg PO Q6H PRN PRN PRN Reason: Pain Score 1-10/Temp > 100.7 F Albuterol Sulfate (Albuterol 2.5 Mg/3 Ml Vial.Neb.) 2.5 mg INHALATION Q4H PRN PRN PRN Reason: SOB/WHEEZING Last Admin: 03/30/20 19:13 Dose: 2.5 mg Documented by: Aspirin (Aspirin E.C. 81 Mg Tablet) 81 mg PO DAILY [facility] Last Admin: 03/31/20 07:48 Dose: 81 mg Documented by: Carvedilol (Carvedilol 25 Mg Tablet) 25 mg PO BID [facility] Last Admin: 03/30/20 11:45 Dose: 25 mg Documented by: Cyanocobalamin (Cyanocobalamin 500 Mcg Tablet) 1,000 mcg PO DAILY [facility] Last Admin: 03/31/20 07:48 Dose: 1,000 mcg Documented by: Dextrose (Dextrose 50%-Water 25 Gm/50 Ml Disp.Syrin) 0 gm IV X1 PRN; Protocol PRN Reason: Hypoglycemia Ergocalciferol (Ergocalciferol 50,000 Unit Capsule) 50,000 unit PO QWEEK [facility] Furosemide (Furosemide 80 Mg Tablet) 80 mg PO BID@1000,1800 [facility] Glucagon (Glucagon 1 Mg/Ml Syringe) 1 mg IM .X1 PRN PRN Reason: Hypoglycemia Guanfacine HCl (Guanfacine Hcl 1 Mg Tab.Er.24h) 1 mg PO DAILY@2200 [facility] Last Admin: 03/31/20 22:42 Dose: 1 mg Documented by: Heparin Sodium (Porcine) (Heparin Injection (Vial) 5,000 Unit/Ml Vial) 5,000 unit SC Q8 [facility] Last Admin: 04/01/20 06:18 Dose: 5,000 unit Documented by: Azithromycin 500 mg/ Dextrose 255 mls @ 250 mls/hr IV Q24H [facility] Last Infusion: 03/31/20 23:45 Dose: Infused Documented by: Ceftriaxone Sodium 2 gm/ (Sodium Chloride) 50 mls @ 100 mls/hr IV Q24H [facility] Last Infusion: 03/31/20 21:55 Dose: Infused Documented by: Sodium Chloride () 500 mls @ 15 mls/hr IV PRN PRN PRN Reason: Blood Transfusion Last Infusion: 03/30/20 13:56 Dose: 0 mls/hr Documented by: Sodium Chloride () 250 mls @ 15 mls/hr IV .[id number] PRN PRN Reason: Saline Flush Sodium Chloride () 250 mls @ 15 mls/hr IV .[id number] PRN PRN Reason: Additional IVPB Infusion Multivit/Ca Carb/B Cmplx/FA/Prenat (Folic Acid/Vitamin B Comp W-C 1 Capsule) 1 capsule PO DAILY [facility] Last Admin: 03/31/20 13:03 Dose: Not Given Documented by: Ondansetron HCl (Ondansetron 4 Mg/2 Ml Vial) 4 mg IV Q8H PRN PRN PRN Reason: NAUSEA/VOMITING Pantoprazole Sodium (Pantoprazole Sodium 40 Mg Tablet) 40 mg PO DAILY [facility] Last Admin: 03/31/20 07:48 Dose: 40 mg Documented by: Polyethylene Glycol (Polyethylene Glycol 3350 17 Gm Packet) 34 gm PO X1 PRN PRN Reason: Bowel Movement Sodium Chloride (0.9% Saline Lock 10 Ml Syringe) 10 - 40 ml IV UD PRN PRN Reason: SALINE FLUSH Last Admin: 03/30/20 17:57 Dose: 10 ml Documented by: Medical Necessity - Tobacco Use Smoking Status: Never smoker Assessment/Plan All Active Problems (Last Reviewed 03/29/20 @ 21:[address] Joe Montaño MD) Iron deficiency anemia (Acute) Nephrotic syndrome (Acute) Pneumonia (Acute) Hyperkalemia (Acute) Chronic kidney disease (CKD) (Acute) TIA (transient ischemic attack) (Resolved 09/19/18) Abrasion, left lower leg, initial encounter (Resolved) Contusion of left knee (Resolved) Contusion of lower leg, left (Resolved) Febrile illness (Resolved) History of small bowel obstruction (Resolved) Myocardial infarct (Resolved) Stroke-like symptoms (Resolved) Syncope (Resolved 10/16/18) history of traumatic pneumothorax (Resolved) 1. 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 24h urine CRCL 16cc/min. HD #2 today 3hrs with fluid removal. Next dialysis tomorrow. Will need dialysis arranged as outpt prior to discharge but no insurance at this time. CM to assist in obtaining insurance. 2. Hyperkalemia correct with kayexalate, bicarb, dialysis Follow low K diet 3. Iron def anemia iv iron load, s/p prbc 4. DM2 with nephrotic syndrome, add lasix bid 5. HTN stable 6. Anasarca due to nephrotic proteinuria. Await SPEP 7. LLL pna on antibx per primary service 8. Morbid obesity DW CM, hospitalist, dialysis nurse
[2020-04-01 10:47] LABS: Hepatitis B Surface Antigen Non-Reactive (Nonreactive)
--- NOTE | 2020-04-01 11:46 | CASEMGMT ---
DANITZA received a return call from Miranda Segura. She said that she helped patient sign up for a short term plan with [employer] and it was to take place today. However, she did not know he was on dialysis and this may disqualify him from the policy as this would be considered pre-existing. She will call [employer] [facility] and find out. She will get to it as soon as she can as she is headed to an appt now. In the meantime DANITZA assisted patient in completing a Medicaid application. Patient agrees to go to a group home. DANITZA wrote on the fax face sheet and application that patient is End Stage Renal Disease, starting on dialysis, and will be going to a group home. Application was faxed to [facility]. Sasha FREIRE MSW
[2020-04-01 12:01] LABS: Bedside Glucose 194 mg/dL (70-110)
[2020-04-01] MEDS: Heparin 10,000 UNITS/10 ML Vial IV (13:28)
--- NOTE | 2020-04-01 14:14 | DIALYSIS ---
tx completed. all blood returned. stable t/o. 3 hours -3000ml uf today. CVC closed with heparin to each lumen fill volume. Report to Za LAY. See HD flowsheet for further details.
[2020-04-01] MEDS: Folic Acid/Vitamin B Comp W-C 1 Capsule 1 CAP PO (16:01)
[2020-04-01] MEDS: Cyanocobalamin 500 MCG Tablet 1000 MCG PO (16:01)
[2020-04-01] MEDS: Furosemide 80 MG Tablet PO (16:01)
[2020-04-01] MEDS: Aspirin E.C. 81 MG Tablet PO (16:02)
[2020-04-01] MEDS: Pantoprazole Sodium 40 MG Tablet PO (16:02)
[2020-04-01 16:08] LABS: Alpha-1-Globulin, Ur 4.9 % (.); Alpha-2-Globulins, Ur 4.7 % (.); Beta Globulin, Ur 8.8 % (.); Gamma Globulin, Ur 7.6 % (.); M-Spike, Ur % Not Observed % (Not Observed)
[2020-04-01 16:24] LABS: Total Protein, Ur 398.7 mg/dL (Not Estab.)
[2020-04-01 17:21] LABS: Bedside Glucose 248 mg/dL (70-110)
[2020-04-01] MEDS: Tamsulosin HCl 0.4 MG Capsule PO (18:40)
[2020-04-01] MEDS: hydrALAZINE 20 MG/ML Vial 5 MG IV (22:07)
[2020-04-01] MEDS: 0.9% Saline Lock 10 ML Syringe IV (22:08)
[2020-04-01] MEDS: GUANFACINE HCL 1 MG TAB.ER.24H PO (22:10)
[2020-04-01 23:36] LABS: Bedside Glucose 316 mg/dL (70-110)
[2020-04-02] VITALS (13 sets, daily range): BP systolic 137–196; BP diastolic 54–90; PULSE 68–86; RESP 15–18; TEMP 36.9–37.1; O2SAT 92–96
[2020-04-02] MEDS: Ondansetron 4 MG/2 ML Vial IV (00:06)
[2020-04-02] MEDS: 0.9% Saline Lock 10 ML Syringe IV (00:06)
[2020-04-02 02:31] LABS: Bedside Glucose 281 mg/dL (70-110)
[2020-04-02] MEDS: Heparin Injection (Vial) 5,000 UNIT/ML VIAL 5000 UNIT SC ×3 (06:36→20:48)
[2020-04-02 06:51] LABS: Bedside Glucose 222 mg/dL (70-110)
[2020-04-02] MEDS: Pantoprazole Sodium 40 MG Tablet PO (08:00)
[2020-04-02] MEDS: Furosemide 80 MG Tablet PO ×2 (08:00→18:02)
[2020-04-02] MEDS: Aspirin E.C. 81 MG Tablet PO (08:00)
[2020-04-02] MEDS: Folic Acid/Vitamin B Comp W-C 1 Capsule 1 CAP PO (08:00)
[2020-04-02] MEDS: Cyanocobalamin 500 MCG Tablet 1000 MCG PO (08:01)
[2020-04-02 08:13] LABS: Absolute Lymphocyte Count 0.74 X10^3/uL (0.83-4.51); Absolute Neutrophil Count 3.3 X10^3/uL (2.0-7.7); Basophil# 0.03 X10^3/uL; Basophil% 0.5 % (0-1); Eosinophil# 0.33 X10^3/uL; Hematocrit 24.8 % (40-54); Hemoglobin 7.5 g/dL (13.0-16.5); Lymphocyte # 0.74 X10^3/ul (4.0); Lymphocyte % 13.5 % (19-41); Mean Corp Hgb Conc 30.2 g/dL (32-36); Mean Corpuscular Hgb 25.7 pg (27.0-32.0); Mean Corpuscular Volume 84.9 fL (80-94); Mean Platelet Vol. 11.7 fl (6.2-12.0); Monocyte# 1.09 X10^3/uL; Monocyte% 19.9 % (0-10); NRBC Flagged by Analyzer 0 % (0-5); Neutrophil # 3.26 X10^3/uL (2.7-7.7); Neutrophil % 59.6 % (47-70); Platelet Count 147 K/mm3 (150-450); RBC Distribution Width CV 14.6 % (11.6-14.6); RBC Distribution Width SD 45.1 fl (35.1-43.9); Red Blood Count 2.92 M/mm3 (4.6-6.2); White Blood Count 5.5 K/mm3 (4.4-11.0)
[2020-04-02 08:28] LABS: BUN 55 mg/dL (7-18); BUN/Creat Ratio 15.8 RATIO (10-20); Calcium,Total 7.9 mg/dL (8.5-10.1); Chloride 105 mmol/L (98-107); Creatinine, Serum 3.49 mg/dL (0.70-1.30); EST Glomerular Filtration Rate 19 mL/min (>60); Est Glom Filt Rate - Afr Amer 23 mL/min (>60); Estimated Creatinine Clearance 21.38 ml/min; Glucose 216 mg/dL (74-106); Phosphorus 4.7 mg/dL (2.5-4.9); Potassium 4.2 mmol/L (3.5-5.1); Sodium Level 137 mmol/L (136-145)
[2020-04-02 08:47] LABS: Hepatitis B Core Ab Total Negative (Negative)
--- NOTE | 2020-04-02 10:35 | CASEMGMT ---
Addendum entered by Colleen Hollins 04/02/20 15:43: SW spoke w/Miranda Segura, she states that pt will hear from [facility] directly if he will be covered. Also to clarify, after many calls back and forth, this SW did speak w/Dana from [facility], conversation is as stated below. SW met w/pt in room, explained that we do have a pending Medicaid number, and that we may be able to get pt accepted into a SNF with the pending number, and start getting dialysis set up w/the pending number as well. SW explained to pt that he will be eligible for Medicare three months from when dialysis started. SW gave pt list of SNFs to see where he may want to go, explaining that we may not have a lot of choices due to the pending Medicaid. Pt states [facility], [facility], and [facility]. SW asked about transportation to and from dialysis once he goes home, pt is not sure, he does not drive as he has poor eyesight, is not sure if his son would drive him. He states may take and Uber or Lyft. SW also asked about son being appliance service representative for Medicaid, he is agreeable. Pt signed the form. SW explained will call son to confirm he is okay with this also. SW explained will start faxing referrals to nursing homes, and the referral process for dialysis will be started as well. SW explained he will be here through the weekend and SW will follow up on Sunday. SW called son Eber, he is agreeable to be pt's appliance service representative for Medicaid. SW faxed the authorized rep form to Medicaid. SW faxed referral to [facility]. SW left messages at [facility] and [facility]. SW to follow up on Sunday. ANAHY Anderson Addendum entered by Colleen Hollins 04/02/20 14:31: SW received a call back from Miranda Segura, she left a message. SW called her back, left a message. SW received message back from Dana, insurance verification specialist w/[employer]. She states if pt has a pending Medicaid number, they will take pt. She also states pt will be eligible for Medicare 3 months from the start of dialysis. She states if pt were to be on PD, Medicare starts the month pt starts training. DANITZA called [facility], spoke w/Lesley, she states would consider pt, asked SW to send referral. Original Note: Pt's insurance rep had called DANITZA Baez back, after Sasha left, called her on PCU rather than her phone. SW called Miranda Segura back([phone]), message left. SW called [facility], pt does have a pending medicaid number, [id number], as per Abi Gray at [facility]. If pt were in a facility for 30 days(and hospital days count toward this 30 days), and he qualifies financially, he can get Medicaid. DANITZA called DANITZA Jarrett at [facility] regarding insurance for pt, she gave DANITZA Cortez's number, insurance person for [facility]. SW called Dana([phone]), message left. SW called [facility], they cannot take pt unless he is set up for outpt dialysis. Without insurance this may not be possible. SW will continue to follow, will make more phone calls shortly. ANAHY Anderson
[2020-04-02] MEDS: Acetaminophen 325 MG Tablet 650 MG PO (10:47)
--- NOTE | 2020-04-02 13:29 | DIALYSIS ---
HD x3.5 hours completed at 1310 on a 3K bath, tolerated well, c/o feeling blah in general today and throughout tx, headache during dialysis treated with Tylenol (BP 140s/60s), reported feeling better post dialysis, UF 3600mL, systolic ranged from 130s-180s, accessed via right chest tunneled dialysis catheter, worked well, Venofer dose 3 of 7 given, Retacrit given, next tx per nephrology
[2020-04-02 13:30] LABS: Bedside Glucose 197 mg/dL (70-110)
--- NOTE | 2020-04-02 14:55 | CASEMGMT ---
Pending [facility] number obtained: [id number]. Referral faxed to [facility] as they state they will take pending [facility] at this time. Scott LAY CM
[2020-04-02] MEDS: Epoetin Alfa epbx 10,000 UNITS/ML 10000 UNIT IV (15:24)
[2020-04-02 17:55] LABS: Bedside Glucose 307 mg/dL (70-110)
[2020-04-02] MEDS: Tamsulosin HCl 0.4 MG Capsule PO (18:02)
[2020-04-02] MEDS: Amox/Clavulanate 500 MG Tablet PO (18:03)
--- NOTE | 2020-04-02 18:11 | PN_ITS ---
Patient Problems: Active and Suspected Problems (Last Reviewed 03/29/20 @ 21:[address] Joe Montaño MD) Nephrotic syndrome (Acute) Pneumonia (Acute) Hyperkalemia (Acute) Chronic kidney disease (CKD) (Acute) Reason for Visit: Follow-up on hyperkalemia/ANGELIA Subjective: Patient was seen and examined. He had his third dialysis today. Denies any new complaints. No acute events overnight. Objective: Physical exam: General: Alert, Oriented x3, Cooperative, No apparent distress HEENT: Atraumatic, PERRLA, EOMI, Normocephalic Oral: Moist Mucosa Neck: Supple Lungs: Diminished Cardiovascular: Regular rate, Regular Rhythm, Normal S1, Normal S2, No murmurs Abdomen: Bowel Sounds Present, Soft, Non Tender, Non-Distended, No Hepato- splenomegaly Extremities: Edema - Edema +1-2, multiple chronic venous stasis ulcers, or pain, with surrounding erythema Skin: No rashes Musculoskeletal: No Tenderness to Palpation of Joints or Extremities Lymphatic: No Cervical, Supraclavicular, or Inguinal Adenopathy Neurological: Cranial nerves II-XII grossly intact, Neuro grossly intact Psych/Mental Status: Normal Affect, Appropriate Vitals/I&O's: Vital Signs Temp Pulse Resp BP Pulse Ox 98.4 F 80 18 174/75 H 95 04/02/20 18:04 04/02/20 18:04 04/02/20 18:04 04/02/20 18:04 04/02/20 18:04 Oxygen Delivery Method Room Air Weight: 127.5 kg Body Mass Index (BMI) 41.5 Finger Stick Blood Glucose 76 Intake and Output for Last 24 Hours 03/31/20 04/01/20 04/02/20 23:59 23:59 23:59 Intake Total 1285 / 1525 1305 / 1545 980 / 980 Output Total 2800 / 3200 4150 / 4150 3700 / 3700 Balance -1515 / -1675 -2845 / -2605 -2720 / -2720 Laboratory Results 03/31/20 18:43: Hep B Core Total Ab Negative 04/01/20 22:15: POC Glucose 316 H 04/02/20 02:18: POC Glucose 281 H 04/02/20 06:40: POC Glucose 222 H 04/02/20 08:04: WBC 5.5, RBC 2.92 L, Hgb 7.5 L, Hct 24.8 L, MCV 84.9, MCH 25.7 L , MCHC 30.2 L, RDW Std Deviation 45.1 H, RDW Coeff of Lina 14.6, Plt Count 147 L, MPV 11.7, Immature Gran % (Auto) 0.500, Neut % (Auto) 59.6, Lymph % (Auto) 13.5 L, [place] % (Auto) 19.9 H, Eos % (Auto) 6.0 H, Baso % (Auto) 0.5, Absolute Neuts (auto) 3.3, Absolute Lymphs (auto) 0.74 L, Nucleated RBC % 0 04/02/20 08:04: Sodium 137, Potassium 4.2, Chloride 105, Carbon Dioxide 27.0, BUN 55 H, Creatinine 3.49 H, Estim Creat Clear Calc 21.38, Est GFR (MDRD) Af Amer 23 L, Est GFR (MDRD) Non-Af 19 L, BUN/Creatinine Ratio 15.8, Glucose 216 H, Calcium 7.9 L, Phosphorus 4.7, Albumin 2.0 L 04/02/20 13:24: POC Glucose 197 H 04/02/20 17:48: POC Glucose 307 H Current Medications Acetaminophen (Acetaminophen 325 Mg Tablet) 650 mg PO Q6H PRN PRN PRN Reason: Pain Score 1-10/Temp > 100.7 F Last Admin: 04/02/20 10:47 Dose: 650 mg Documented by: Albuterol Sulfate (Albuterol 2.5 Mg/3 Ml Vial.Neb.) 2.5 mg INHALATION Q4H PRN PRN PRN Reason: SOB/WHEEZING Last Admin: 03/30/20 19:13 Dose: 2.5 mg Documented by: Amoxicillin/Clavulanate Potassium (Amox/Clavulanate 500 Mg Tablet) 500 mg PO DAILY@1700 [facility] Last Admin: 04/02/20 18:03 Dose: 500 mg Documented by: Aspirin (Aspirin E.C. 81 Mg Tablet) 81 mg PO DAILY [facility] Last Admin: 04/02/20 08:00 Dose: 81 mg Documented by: Carvedilol (Carvedilol 25 Mg Tablet) 25 mg PO BID [facility] Last Admin: 03/30/20 11:45 Dose: 25 mg Documented by: Cyanocobalamin (Cyanocobalamin 500 Mcg Tablet) 1,000 mcg PO DAILY [facility] Last Admin: 04/02/20 08:01 Dose: 1,000 mcg Documented by: Dextrose (Dextrose 50%-Water 25 Gm/50 Ml Disp.Syrin) 0 gm IV X1 PRN; Protocol PRN Reason: Hypoglycemia Ergocalciferol (Ergocalciferol 50,000 Unit Capsule) 50,000 unit PO QWEEK [facility] Furosemide (Furosemide 80 Mg Tablet) 80 mg PO BID@1000,1800 [facility] Last Admin: 04/02/20 18:02 Dose: 80 mg Documented by: Glucagon (Glucagon 1 Mg/Ml Syringe) 1 mg IM .X1 PRN PRN Reason: Hypoglycemia Guanfacine HCl (Guanfacine Hcl 1 Mg Tab.Er.24h) 1 mg PO DAILY@2200 [facility] Last Admin: 04/01/20 22:10 Dose: 1 mg Documented by: Heparin Sodium (Porcine) (Heparin Injection (Vial) 5,000 Unit/Ml Vial) 5,000 unit SC Q8 [facility] Last Admin: 04/02/20 15:24 Dose: 5,000 unit Documented by: Hydralazine HCl (Hydralazine 20 Mg/Ml Vial) 5 mg IV Q6H PRN PRN PRN Reason: BLOOD PRESSURE Last Admin: 04/01/20 22:07 Dose: 5 mg Documented by: Sodium Chloride () 500 mls @ 15 mls/hr IV PRN PRN PRN Reason: Blood Transfusion Last Infusion: 03/30/20 13:56 Dose: 0 mls/hr Documented by: Sodium Chloride () 250 mls @ 15 mls/hr IV .[id number] PRN PRN Reason: Saline Flush Sodium Chloride () 250 mls @ 15 mls/hr IV .[id number] PRN PRN Reason: Additional IVPB Infusion Insulin Human Lispro (Insulin Lispro 100 Unit/Ml Insuln.Pen) 5 unit SC BREAKFAST [facility] Insulin Human Lispro (Insulin Lispro 100 Unit/Ml Insuln.Pen) 0 unit SC ACHS [facility]; Protocol Insulin Lispro Protam/Lispro Human (Insulin Human 75/25 [place]) 5 unit SC BREAKFAST [facility] Insulin Lispro Protam/Lispro Human (Insulin Human 75/25 [place]) 5 unit SC DINNER [facility] Multivit/Ca Carb/B Cmplx/FA/Prenat (Folic Acid/Vitamin B Comp W-C 1 Capsule) 1 capsule PO DAILY [facility] Last Admin: 04/02/20 08:00 Dose: 1 capsule Documented by: Nystatin (Nystatin Ointment) 1 applic TOPICAL BID [facility]; Protocol Last Admin: 04/02/20 10:53 Dose: Not Given Documented by: Ondansetron HCl (Ondansetron 4 Mg/2 Ml Vial) 4 mg IV Q8H PRN PRN PRN Reason: NAUSEA/VOMITING Last Admin: 04/02/20 00:06 Dose: 4 mg Documented by: Pantoprazole Sodium (Pantoprazole Sodium 40 Mg Tablet) 40 mg PO DAILY [facility] Last Admin: 04/02/20 08:00 Dose: 40 mg Documented by: Polyethylene Glycol (Polyethylene Glycol 3350 17 Gm Packet) 34 gm PO X1 PRN PRN Reason: Bowel Movement Sodium Chloride (0.9% Saline Lock 10 Ml Syringe) 10 - 40 ml IV UD PRN PRN Reason: SALINE FLUSH Last Admin: 04/02/20 00:06 Dose: 10 ml Documented by: Tamsulosin HCl (Tamsulosin Hcl 0.4 Mg Capsule) 0.4 mg PO DAILY@1730 [facility] Last Admin: 04/02/20 18:02 Dose: 0.4 mg Documented by: STROKE Vital Signs/Narrative: Vital Signs Temp Pulse Resp BP Pulse Ox 04/02/20 18:04 98.4 F 80 18 174/75 H 95 04/02/20 15:00 82 Medical Necessity - Tobacco Use Smoking Status: Never smoker Assessment/Plan All Active Problems (Last Reviewed 03/29/20 @ 21:[address] Joe Montaño MD) Iron deficiency anemia (Acute) Nephrotic syndrome (Acute) Pneumonia (Acute) Hyperkalemia (Acute) Chronic kidney disease (CKD) (Acute) TIA (transient ischemic attack) (Resolved 09/19/18) Abrasion, left lower leg, initial encounter (Resolved) Contusion of left knee (Resolved) Contusion of lower leg, left (Resolved) Febrile illness (Resolved) History of small bowel obstruction (Resolved) Myocardial infarct (Resolved) Stroke-like symptoms (Resolved) Syncope (Resolved 10/16/18) history of traumatic pneumothorax (Resolved) 1. Hyperkalemia, resolved Status post Kayexalate and Miralax Will continue to monitor off losartan 2. ANGELIA on CKD stage IV, previous creatinine of 3.1, admitted creatinine of 4.32, worsening Creatinine today is 4.6. General surgery consulted for tunneled dialysis Follows with nephrology in the outpatient, losartan on hold, will continue to monitor 3. Acute on chronic anemia of CKD, status post 1 unit pBC; repeat Hb is 7.5 Patient was admitted with hemoglobin of 7.7. Previous hemoglobin was 9.1 Stool for occult blood is negative. Status post 1 unit packed RBCs Repeat blood work in a.m. 4. Pneumonia, without hypoxia, slowly improving, urine sodium growth and Legionella antigen negative Will switch to Augmentin to complete 10 days 5. Hypoglycemia, resolved, history of type II DM, BS are controlled. Will start back on ISS with Lispro premeal 5 units and monitor Home Lantus insulin and glyburide on hold Will continue to monitor 6. Chronic venostasis with chronic leg ulcers with mild erythema 7. Hypertension, blood pressure was relatively low Amlodipine and losartan on hold. Continued on carvedilol We will continue to monitor 8. DVT prophylaxis with heparin SC Inpatient E&M: 91749 Subs Hosp L2
[2020-04-02] MEDS: amLODIPine 10 MG Tablet PO (20:44)
[2020-04-02] MEDS: GUANFACINE HCL 1 MG TAB.ER.24H PO (20:48)
[2020-04-02] MEDS: Insulin Lispro 100 UNIT/ML INSULN.PEN SC (22:40)
[2020-04-02 22:50] LABS: Bedside Glucose 358 mg/dL (70-110)
[2020-04-03] VITALS (13 sets, daily range): BP systolic 151–193; BP diastolic 71–92; PULSE 7–83; RESP 15–18; TEMP 36.7–37.2; O2SAT 96–97
[2020-04-03 02:41] LABS: Bedside Glucose 327 mg/dL (70-110)
[2020-04-03] MEDS: Heparin Injection (Vial) 5,000 UNIT/ML VIAL 5000 UNIT SC ×3 (05:09→22:11)
--- NOTE | 2020-04-03 07:21 | PCM.PN.HOSP ---
Patient Problems: Active and Suspected Problems (Last Reviewed 03/29/20 @ 21:[address] Joe Montaño MD) Nephrotic syndrome (Acute) Pneumonia (Acute) Hyperkalemia (Acute) Chronic kidney disease (CKD) (Acute) Reason for Visit: Follow-up on hyperkalemia/ANGELIA/ Hyperglycemia Subjective: Patient was seen and examined. He feels much improved. Blood sugars remain uncontrolled. He was started back on his insulin yesterday. Would increase dose insulin towards his home doses. No other acute events overnight. Denied any chest pain or dizziness or fever or chills. Objective: Physical exam: General: Alert, Oriented x3, Cooperative, No apparent distress HEENT: Atraumatic, PERRLA, EOMI, Normocephalic Oral: Moist Mucosa Neck: Supple Lungs: Diminished Cardiovascular: Regular rate, Regular Rhythm, Normal S1, Normal S2, No murmurs Abdomen: Bowel Sounds Present, Soft, Non Tender, Non-Distended, No Hepato-splenomegaly Extremities: Edema - Edema +1-2, multiple chronic venous stasis ulcers, or pain, with surrounding erythema Skin: No rashes Musculoskeletal: No Tenderness to Palpation of Joints or Extremities Lymphatic: No Cervical, Supraclavicular, or Inguinal Adenopathy Neurological: Cranial nerves II-XII grossly intact, Neuro grossly intact Psych/Mental Status: Normal Affect, Appropriate Vitals/I&O's: Vital Signs Temp Pulse Resp BP Pulse Ox 98.1 F 7 L 15 159/67 H 95 04/03/20 05:01 04/03/20 06:39 04/03/20 05:01 04/03/20 05:01 04/03/20 05:01 Oxygen Delivery Method Room Air Weight: 123.2 kg Body Mass Index (BMI) 41.5 Finger Stick Blood Glucose 76 Intake and Output for Last 24 Hours 04/01/20 04/02/20 04/03/20 23:59 23:59 23:59 Intake Total 1305 / 1545 1280 / 1530 550 / 550 Output Total 4150 / 4150 4175 / 4475 1250 / 1250 Balance -2845 / -2605 -2895 / -2945 -700 / -700 Laboratory Results 03/31/20 18:43: Hep B Core Total Ab Negative 04/02/20 08:04: WBC 5.5, RBC 2.92 L, Hgb 7.5 L, Hct 24.8 L, MCV 84.9, MCH 25.7 L, MCHC 30.2 L, RDW Std Deviation 45.1 H, RDW Coeff of Lina 14.6, Plt Count 147 L, MPV 11.7, Immature Gran % (Auto) 0.500, Neut % (Auto) 59.6, Lymph % (Auto) 13.5 L, [place] % (Auto) 19.9 H, Eos % (Auto) 6.0 H, Baso % (Auto) 0.5, Absolute Neuts (auto) 3.3, Absolute Lymphs (auto) 0.74 L, Nucleated RBC % 0 04/02/20 08:04: Sodium 137, Potassium 4.2, Chloride 105, Carbon Dioxide 27.0, BUN 55 H, Creatinine 3.49 H, Estim Creat Clear Calc 21.38, Est GFR (MDRD) Af Amer 23 L, Est GFR (MDRD) Non-Af 19 L, BUN/Creatinine Ratio 15.8, Glucose 216 H, Calcium 7.9 L, Phosphorus 4.7, Albumin 2.0 L 04/02/20 13:24: POC Glucose 197 H 04/02/20 17:48: POC Glucose 307 H 04/02/20 22:16: POC Glucose 358 H 04/03/20 02:31: POC Glucose 327 H Current Medications Acetaminophen (Acetaminophen 325 Mg Tablet) 650 mg PO Q6H PRN PRN PRN Reason: Pain Score 1-10/Temp > 100.7 F Last Admin: 04/02/20 10:47 Dose: 650 mg Documented by: Albuterol Sulfate (Albuterol 2.5 Mg/3 Ml Vial.Neb.) 2.5 mg INHALATION Q4H PRN PRN PRN Reason: SOB/WHEEZING Last Admin: 03/30/20 19:13 Dose: 2.5 mg Documented by: Amlodipine Besylate (Amlodipine 10 Mg Tablet) 10 mg PO DAILY [facility] Last Admin: 04/02/20 20:44 Dose: 10 mg Documented by: Amoxicillin/Clavulanate Potassium (Amox/Clavulanate 500 Mg Tablet) 500 mg PO DAILY@1700 [facility] Last Admin: 04/02/20 18:03 Dose: 500 mg Documented by: Aspirin (Aspirin E.C. 81 Mg Tablet) 81 mg PO DAILY [facility] Last Admin: 04/02/20 08:00 Dose: 81 mg Documented by: Carvedilol (Carvedilol 25 Mg Tablet) 25 mg PO BID [facility] Last Admin: 03/30/20 11:45 Dose: 25 mg Documented by: Cyanocobalamin (Cyanocobalamin 500 Mcg Tablet) 1,000 mcg PO DAILY [facility] Last Admin: 04/02/20 08:01 Dose: 1,000 mcg Documented by: Dextrose (Dextrose 50%-Water 25 Gm/50 Ml Disp.Syrin) 0 gm IV X1 PRN; Protocol PRN Reason: Hypoglycemia Ergocalciferol (Ergocalciferol 50,000 Unit Capsule) 50,000 unit PO QWEEK [facility] Furosemide (Furosemide 80 Mg Tablet) 80 mg PO BID@1000,1800 [facility] Last Admin: 04/02/20 18:02 Dose: 80 mg Documented by: Glucagon (Glucagon 1 Mg/Ml Syringe) 1 mg IM .X1 PRN PRN Reason: Hypoglycemia Guanfacine HCl (Guanfacine Hcl 1 Mg Tab.Er.24h) 1 mg PO DAILY@2200 [facility] Last Admin: 04/02/20 20:48 Dose: 1 mg Documented by: Heparin Sodium (Porcine) (Heparin Injection (Vial) 5,000 Unit/Ml Vial) 5,000 unit SC Q8 [facility] Last Admin: 04/03/20 05:09 Dose: 5,000 unit Documented by: Hydralazine HCl (Hydralazine 20 Mg/Ml Vial) 5 mg IV Q6H PRN PRN PRN Reason: BLOOD PRESSURE Last Admin: 04/01/20 22:07 Dose: 5 mg Documented by: Sodium Chloride () 500 mls @ 15 mls/hr IV PRN PRN PRN Reason: Blood Transfusion Last Infusion: 03/30/20 13:56 Dose: 0 mls/hr Documented by: Sodium Chloride () 250 mls @ 15 mls/hr IV .[id number] PRN PRN Reason: Saline Flush Sodium Chloride () 250 mls @ 15 mls/hr IV .[id number] PRN PRN Reason: Additional IVPB Infusion Insulin Human Lispro (Insulin Lispro 100 Unit/Ml Insuln.Pen) 5 unit SC BREAKFAST [facility] Insulin Human Lispro (Insulin Lispro 100 Unit/Ml Insuln.Pen) 0 unit SC ACHS [facility]; Protocol Last Admin: 04/02/20 22:40 Dose: 3 units Documented by: Insulin Lispro Protam/Lispro Human (Insulin Human 75/25 Kwickpen) 5 unit SC BREAKFAST [facility] Insulin Lispro Protam/Lispro Human (Insulin Human 75/25 Kwickpen) 5 unit SC DINNER [facility] Multivit/Ca Carb/B Cmplx/FA/Prenat (Folic Acid/Vitamin B Comp W-C 1 Capsule) 1 capsule PO DAILY [facility] Last Admin: 04/02/20 08:00 Dose: 1 capsule Documented by: Nystatin (Nystatin Ointment) 1 applic TOPICAL BID [facility]; Protocol Last Admin: 04/02/20 22:23 Dose: Not Given Documented by: Ondansetron HCl (Ondansetron 4 Mg/2 Ml Vial) 4 mg IV Q8H PRN PRN PRN Reason: NAUSEA/VOMITING Last Admin: 04/02/20 00:06 Dose: 4 mg Documented by: Pantoprazole Sodium (Pantoprazole Sodium 40 Mg Tablet) 40 mg PO DAILY [facility] Last Admin: 04/02/20 08:00 Dose: 40 mg Documented by: Polyethylene Glycol (Polyethylene Glycol 3350 17 Gm Packet) 34 gm PO X1 PRN PRN Reason: Bowel Movement Sodium Chloride (0.9% Saline Lock 10 Ml Syringe) 10 - 40 ml IV UD PRN PRN Reason: SALINE FLUSH Last Admin: 04/02/20 00:06 Dose: 10 ml Documented by: Tamsulosin HCl (Tamsulosin Hcl 0.4 Mg Capsule) 0.4 mg PO DAILY@1730 [facility] Last Admin: 04/02/20 18:02 Dose: 0.4 mg Documented by: STROKE Vital Signs/Narrative: Vital Signs Temp Pulse Resp BP Pulse Ox 04/03/20 06:39 7 L 04/03/20 05:01 98.1 F 75 15 159/67 H 95 Medical Necessity - Tobacco Use Smoking Status: Never smoker Assessment/Plan All Active Problems (Last Reviewed 03/29/20 @ 21:[address] Joe Montaño MD) Iron deficiency anemia (Acute) Nephrotic syndrome (Acute) Pneumonia (Acute) Hyperkalemia (Acute) Chronic kidney disease (CKD) (Acute) TIA (transient ischemic attack) (Resolved 09/19/18) Abrasion, left lower leg, initial encounter (Resolved) Contusion of left knee (Resolved) Contusion of lower leg, left (Resolved) Febrile illness (Resolved) History of small bowel obstruction (Resolved) Myocardial infarct (Resolved) Stroke-like symptoms (Resolved) Syncope (Resolved 10/16/18) history of traumatic pneumothorax (Resolved) 1. Hyperkalemia, resolved Status post Kayexalate and Miralax Will continue to monitor off losartan 2. ANGELIA on CKD stage IV, previous creatinine of 3.1, admitted creatinine of 4.32, worsening Creatinine today is 3.49. General surgery consulted for tunneled dialysis Follows with nephrology in the outpatient, losartan on hold, will continue to monitor 3. Acute on chronic anemia of CKD, status post 1 unit pBC; repeat Hb is 7.5 Patient was admitted with hemoglobin of 8.2. Previous hemoglobin was 9.1 Stool for occult blood is negative. Status post 1 unit packed RBCs Repeat blood work in a.m. 4. Pneumonia, without hypoxia, slowly improving, urine sodium growth and Legionella antigen negative Continue on Augmentin to complete 10 days 5. Hypoglycemia, resolved, history of type II DM, BS are controlled. Will resume on Lantus 20units QHS, Lispro premeal 8 units and monitor Continue to hold home glyburide 6. Chronic venostasis with chronic leg ulcers with mild erythema 7. Hypertension, blood pressure was relatively low, now is uncontrolled Losartan on hold. Continued on carvedilol, amlodipine Will add hydralazien 25mg BID We will continue to monitor 8. DVT prophylaxis with heparin SC Inpatient E&M: [id number] [facility] Hosp L2
[2020-04-03] MEDS: Insulin Lispro 100 UNIT/ML INSULN.PEN SC ×5 (07:43→22:11)
[2020-04-03] MEDS: Insulin Human 75/25 Kwickpen 5 UNIT SC (07:44)
[2020-04-03 07:50] LABS: Bedside Glucose 265 mg/dL (70-110)
[2020-04-03 07:56] LABS: Bedside Glucose 291 mg/dL (70-110)
[2020-04-03 08:55] LABS: Absolute Lymphocyte Count 0.68 X10^3/uL (0.83-4.51); Absolute Neutrophil Count 3.8 X10^3/uL (2.0-7.7); Basophil# 0.03 X10^3/uL; Basophil% 0.5 % (0-1); Eosinophil# 0.38 X10^3/uL; Eosinophils% 6.4 % (0-5); Hematocrit 27.4 % (40-54); Hemoglobin 8.2 g/dL (13.0-16.5); Lymphocyte # 0.68 X10^3/ul (4.0); Lymphocyte % 11.4 % (19-41); Mean Corp Hgb Conc 29.9 g/dL (32-36); Mean Corpuscular Hgb 25.2 pg (27.0-32.0); Mean Platelet Vol. 10.9 fl (6.2-12.0); Monocyte# 1.07 X10^3/uL; NRBC Flagged by Analyzer 0 % (0-5); Neutrophil # 3.76 X10^3/uL (2.7-7.7); Neutrophil % 63.2 % (47-70); Platelet Count 155 K/mm3 (150-450); RBC Distribution Width CV 14.2 % (11.6-14.6); RBC Distribution Width SD 43.5 fl (35.1-43.9); Red Blood Count 3.26 M/mm3 (4.6-6.2)
[2020-04-03] MEDS: Furosemide 80 MG Tablet PO ×2 (09:51→16:44)
[2020-04-03] MEDS: Aspirin E.C. 81 MG Tablet PO (09:51)
[2020-04-03] MEDS: Pantoprazole Sodium 40 MG Tablet PO (09:51)
[2020-04-03] MEDS: amLODIPine 10 MG Tablet PO (09:51)
[2020-04-03] MEDS: Folic Acid/Vitamin B Comp W-C 1 Capsule 1 CAP PO (09:51)
[2020-04-03] MEDS: Cyanocobalamin 500 MCG Tablet 1000 MCG PO (09:51)
[2020-04-03] MEDS: 0.9% Saline Lock 10 ML Syringe IV (10:30)
[2020-04-03] MEDS: hydrALAZINE 20 MG/ML Vial 5 MG IV (10:30)
[2020-04-03 12:00] LABS: Bedside Glucose 323 mg/dL (70-110)
[2020-04-03] MEDS: Tamsulosin HCl 0.4 MG Capsule PO (16:44)
[2020-04-03] MEDS: Amox/Clavulanate 500 MG Tablet PO (16:44)
[2020-04-03] MEDS: Insulin Human 75/25 Kwickpen 8 UNIT SC (16:46)
[2020-04-03 17:30] LABS: Bedside Glucose 353 mg/dL (70-110)
[2020-04-03 22:01] LABS: Bedside Glucose 386 mg/dL (70-110)
[2020-04-03] MEDS: GUANFACINE HCL 1 MG TAB.ER.24H PO (22:11)
[2020-04-03] MEDS: hydrALAZINE 25 MG Tablet PO (22:11)
[2020-04-03] MEDS: Nystatin Ointment 1 APPLIC TOPICAL (22:12)
[2020-04-04] VITALS (13 sets, daily range): BP systolic 148–177; BP diastolic 57–79; PULSE 79–88; RESP 18–24; TEMP 36.7–37.2; O2SAT 94–97
[2020-04-04 02:16] LABS: Bedside Glucose 283 mg/dL (70-110)
[2020-04-04 06:37] LABS: Absolute Lymphocyte Count 0.88 X10^3/uL (0.83-4.51); Absolute Neutrophil Count 4.6 X10^3/uL (2.0-7.7); Basophil# 0.04 X10^3/uL; Basophil% 0.6 % (0-1); Eosinophils% 5.7 % (0-5); Hematocrit 27.4 % (40-54); Hemoglobin 8.3 g/dL (13.0-16.5); Lymphocyte # 0.88 X10^3/ul (4.0); Lymphocyte % 12.5 % (19-41); Mean Corp Hgb Conc 30.3 g/dL (32-36); Mean Corpuscular Hgb 25.2 pg (27.0-32.0); Mean Corpuscular Volume 83.3 fL (80-94); Mean Platelet Vol. 11.3 fl (6.2-12.0); Monocyte# 1.03 X10^3/uL; Monocyte% 14.7 % (0-10); NRBC Flagged by Analyzer 0 % (0-5); Neutrophil # 4.63 X10^3/uL (2.7-7.7); Neutrophil % 65.9 % (47-70); Platelet Count 193 K/mm3 (150-450); RBC Distribution Width CV 14.4 % (11.6-14.6); RBC Distribution Width SD 43.5 fl (35.1-43.9); Red Blood Count 3.29 M/mm3 (4.6-6.2)
[2020-04-04] MEDS: Heparin Injection (Vial) 5,000 UNIT/ML VIAL 5000 UNIT SC ×3 (06:51→21:52)
[2020-04-04] MEDS: Insulin Human 75/25 Kwickpen 8 UNIT SC (07:28)
[2020-04-04] MEDS: Insulin Lispro 100 UNIT/ML INSULN.PEN SC ×4 (07:29→21:52)
[2020-04-04] MEDS: Insulin Lispro 100 UNIT/ML INSULN.PEN 8 UNIT SC (07:29)
[2020-04-04] MEDS: Polyethylene Glycol 3350 17 GM PACKET 34 GM PO (07:35)
--- NOTE | 2020-04-04 07:36 | PN_ITS ---
Patient Problems: Active and Suspected Problems (Last Reviewed 03/29/20 @ 21:[address] Joe Montaño MD) Nephrotic syndrome (Acute) Pneumonia (Acute) Hyperkalemia (Acute) Chronic kidney disease (CKD) (Acute) Reason for Visit: Follow-up on hyperkalemia/ANGELIA/ Hyperglycemia Subjective: Patient was seen and examined. He feels improved. Denies fever or chills or progressive SOB. Objective: Physical exam: General: Alert, Oriented x3, Cooperative, No apparent distress HEENT: Atraumatic, PERRLA, EOMI, Normocephalic Oral: Moist Mucosa Neck: Supple Lungs: Diminished Cardiovascular: Regular rate, Regular Rhythm, Normal S1, Normal S2, No murmurs Abdomen: Bowel Sounds Present, Soft, Non Tender, Non-Distended, No Hepato-splenomegaly Extremities: Edema - Edema +1-2, multiple chronic venous stasis ulcers, or pain, with surrounding erythema Skin: No rashes Musculoskeletal: No Tenderness to Palpation of Joints or Extremities Lymphatic: No Cervical, Supraclavicular, or Inguinal Adenopathy Neurological: Cranial nerves II-XII grossly intact, Neuro grossly intact Psych/Mental Status: Normal Affect, Appropriate Vitals/I&O's: Vital Signs Temp Pulse Resp BP Pulse Ox 98.5 F 83 18 155/78 H 95 04/04/20 06:45 04/04/20 06:45 04/04/20 06:45 04/04/20 06:45 04/04/20 06:45 Oxygen Delivery Method Room Air Weight: 122.9 kg Body Mass Index (BMI) 41.5 Finger Stick Blood Glucose 76 Intake and Output for Last 24 Hours 04/02/20 04/03/20 04/04/20 23:59 23:59 23:59 Intake Total 1280 / 1530 1230 / 1230 240 / 240 Output Total 4175 / 4475 2550 / 2550 900 / 900 Balance -2895 / -2945 -1320 / -1320 -660 / -660 Laboratory Results 04/03/20 07:08: POC Glucose 291 H 04/03/20 07:40: POC Glucose 265 H 04/03/20 08:24: WBC 6.0, RBC 3.26 L, Hgb 8.2 L, Hct 27.4 L, MCV 84.0, MCH 25.2 L , MCHC 29.9 L, RDW Std Deviation 43.5, RDW Coeff of Lina 14.2, Plt Count 155, MPV 10.9, Immature Gran % (Auto) 0.500, Neut % (Auto) 63.2, Lymph % (Auto) 11.4 L, [place] % (Auto) 18.0 H, Eos % (Auto) 6.4 H, Baso % (Auto) 0.5, Absolute Neuts (auto) 3.8, Absolute Lymphs (auto) 0.68 L, Nucleated RBC % 0 04/03/20 11:55: POC Glucose 323 H 04/03/20 16:40: POC Glucose 353 H 04/03/20 21:56: POC Glucose 386 H 04/04/20 02:03: POC Glucose 283 H 04/04/20 05:48: WBC 7.0, RBC 3.29 L, Hgb 8.3 L, Hct 27.4 L, MCV 83.3, MCH 25.2 L , MCHC 30.3 L, RDW Std Deviation 43.5, RDW Coeff of Lina 14.4, Plt Count 193, MPV 11.3, Immature Gran % (Auto) 0.600, Neut % (Auto) 65.9, Lymph % (Auto) 12.5 L, [place] % (Auto) 14.7 H, Eos % (Auto) 5.7 H, Baso % (Auto) 0.6, Absolute Neuts (auto) 4.6, Absolute Lymphs (auto) 0.88, Nucleated RBC % 0 Current Medications Acetaminophen (Acetaminophen 325 Mg Tablet) 650 mg PO Q6H PRN PRN PRN Reason: Pain Score 1-10/Temp > 100.7 F Last Admin: 04/02/20 10:47 Dose: 650 mg Documented by: Albuterol Sulfate (Albuterol 2.5 Mg/3 Ml Vial.Neb.) 2.5 mg INHALATION Q4H PRN PRN PRN Reason: SOB/WHEEZING Last Admin: 03/30/20 19:13 Dose: 2.5 mg Documented by: Amlodipine Besylate (Amlodipine 10 Mg Tablet) 10 mg PO DAILY [facility] Last Admin: 04/03/20 09:51 Dose: 10 mg Documented by: Amoxicillin/Clavulanate Potassium (Amox/Clavulanate 500 Mg Tablet) 500 mg PO DAILY@1700 [facility] Last Admin: 04/03/20 16:44 Dose: 500 mg Documented by: Aspirin (Aspirin E.C. 81 Mg Tablet) 81 mg PO DAILY [facility] Last Admin: 04/03/20 09:51 Dose: 81 mg Documented by: Carvedilol (Carvedilol 25 Mg Tablet) 25 mg PO BID [facility] Last Admin: 03/30/20 11:45 Dose: 25 mg Documented by: Cyanocobalamin (Cyanocobalamin 500 Mcg Tablet) 1,000 mcg PO DAILY [facility] Last Admin: 04/03/20 09:51 Dose: 1,000 mcg Documented by: Dextrose (Dextrose 50%-Water 25 Gm/50 Ml Disp.Syrin) 0 gm IV X1 PRN; Protocol PRN Reason: Hypoglycemia Ergocalciferol (Ergocalciferol 50,000 Unit Capsule) 50,000 unit PO QWEEK [facility] Furosemide (Furosemide 80 Mg Tablet) 80 mg PO BID@1000,1800 [facility] Last Admin: 04/03/20 16:44 Dose: 80 mg Documented by: Glucagon (Glucagon 1 Mg/Ml Syringe) 1 mg IM .X1 PRN PRN Reason: Hypoglycemia Guanfacine HCl (Guanfacine Hcl 1 Mg Tab.Er.24h) 1 mg PO DAILY@2200 [facility] Last Admin: 04/03/20 22:11 Dose: 1 mg Documented by: Heparin Sodium (Porcine) (Heparin Injection (Vial) 5,000 Unit/Ml Vial) 5,000 unit SC Q8 [facility] Last Admin: 04/04/20 06:51 Dose: 5,000 unit Documented by: Hydralazine HCl (Hydralazine 20 Mg/Ml Vial) 5 mg IV Q6H PRN PRN PRN Reason: BLOOD PRESSURE Last Admin: 04/03/20 10:30 Dose: 5 mg Documented by: Hydralazine HCl (Hydralazine 25 Mg Tablet) 25 mg PO BID [facility] Last Admin: 04/03/20 22:11 Dose: 25 mg Documented by: Sodium Chloride () 500 mls @ 15 mls/hr IV PRN PRN PRN Reason: Blood Transfusion Last Infusion: 03/30/20 13:56 Dose: 0 mls/hr Documented by: Sodium Chloride () 250 mls @ 15 mls/hr IV .[id number] PRN PRN Reason: Saline Flush Sodium Chloride () 250 mls @ 15 mls/hr IV .[id number] PRN PRN Reason: Additional IVPB Infusion Insulin Glargine (Insulin Glargine 100 Units/Ml Pen) 20 units SC DAILY [facility] Last Admin: 04/03/20 11:57 Dose: 20 unit Documented by: Insulin Human Lispro (Insulin Lispro 100 Unit/Ml Insuln.Pen) 0 unit SC ACHS [facility]; Protocol Last Admin: 04/04/20 07:29 Dose: 6 units Documented by: Insulin Human Lispro (Insulin Lispro 100 Unit/Ml Insuln.Pen) 8 unit SC BREAKFAST [facility] Last Admin: 04/04/20 07:29 Dose: 8 units Documented by: Insulin Lispro Protam/Lispro Human (Insulin Human 75/25 Kwickpen) 8 unit SC BREAKFAST [facility] Last Admin: 04/04/20 07:28 Dose: 8 unit Documented by: Insulin Lispro Protam/Lispro Human (Insulin Human 75/25 Kwickpen) 8 unit SC DINNER [facility] Last Admin: 04/03/20 16:46 Dose: 8 unit Documented by: Multivit/Ca Carb/B Cmplx/FA/Prenat (Folic Acid/Vitamin B Comp W-C 1 Capsule) 1 capsule PO DAILY [facility] Last Admin: 04/03/20 09:51 Dose: 1 capsule Documented by: Nystatin (Nystatin Ointment) 1 applic TOPICAL BID [facility]; Protocol Last Admin: 04/03/20 22:12 Dose: 1 applicatio Documented by: Ondansetron HCl (Ondansetron 4 Mg/2 Ml Vial) 4 mg IV Q8H PRN PRN PRN Reason: NAUSEA/VOMITING Last Admin: 04/02/20 00:06 Dose: 4 mg Documented by: Pantoprazole Sodium (Pantoprazole Sodium 40 Mg Tablet) 40 mg PO DAILY [facility] Last Admin: 04/03/20 09:51 Dose: 40 mg Documented by: Polyethylene Glycol (Polyethylene Glycol 3350 17 Gm Packet) 34 gm PO X1 PRN PRN Reason: Bowel Movement Last Admin: 04/04/20 07:35 Dose: 34 gm Documented by: Sodium Chloride (0.9% Saline Lock 10 Ml Syringe) 10 - 40 ml IV UD PRN PRN Reason: SALINE FLUSH Last Admin: 04/03/20 10:30 Dose: 10 ml Documented by: Tamsulosin HCl (Tamsulosin Hcl 0.4 Mg Capsule) 0.4 mg PO DAILY@1730 [facility] Last Admin: 04/03/20 16:44 Dose: 0.4 mg Documented by: STROKE Vital Signs/Narrative: Vital Signs Temp Pulse Resp BP Pulse Ox 04/04/20 06:45 98.5 F 83 18 155/78 H 95 04/04/20 06:31 79 Medical Necessity - Tobacco Use Smoking Status: Never smoker Assessment/Plan All Active Problems (Last Reviewed 03/29/20 @ 21:[address] Joe Montaño MD) Iron deficiency anemia (Acute) Nephrotic syndrome (Acute) Pneumonia (Acute) Hyperkalemia (Acute) Chronic kidney disease (CKD) (Acute) TIA (transient ischemic attack) (Resolved 09/19/18) Abrasion, left lower leg, initial encounter (Resolved) Contusion of left knee (Resolved) Contusion of lower leg, left (Resolved) Febrile illness (Resolved) History of small bowel obstruction (Resolved) Myocardial infarct (Resolved) Stroke-like symptoms (Resolved) Syncope (Resolved 10/16/18) history of traumatic pneumothorax (Resolved) 1. Hyperkalemia, resolved Status post Kayexalate and Miralax Will continue to monitor off losartan 2. ANGELIA on CKD stage IV, previous creatinine of 3.1, admitted creatinine of 4.32, worsening Creatinine today is 3.28. General surgery consulted for tunneled dialysis Follows with nephrology in the outpatient, losartan on hold, will continue to monitor 3. Acute on chronic anemia of CKD, status post 1 unit pBC; repeat Hb is 8.3 Patient was admitted with hemoglobin of 8.2. Previous hemoglobin was 9.1 Stool for occult blood is negative. Status post 1 unit packed RBCs Repeat blood work in a.m. 4. Pneumonia, without hypoxia, slowly improving, urine sodium growth and Legionella antigen negative Continue on Augmentin to complete 10 days; last dose was 04/08/20. 5. Hypoglycemia, resolved, history of type II DM, BS are controlled. Will increase on Lantus 30units QHS, Humalog 75/25 10 units prebreakfast/predinner, ISS with blood glucose checks. Continue to hold home glyburide 6. Chronic venostasis with chronic leg ulcers with mild erythema 7. Hypertension, blood pressure was relatively low, now is uncontrolled Losartan on hold. Continued on carvedilol, amlodipine Will add hydralazine 25mg BID, will continue to monitor 8. DVT prophylaxis with heparin SC Inpatient E&M: [id number] [facility] Hosp L2
[2020-04-04 07:41] LABS: Bedside Glucose 245 mg/dL (70-110)
[2020-04-04 08:38] LABS: Albumin, Serum 2.1 g/dL (3.2-5.0); BUN 47 mg/dL (7-18); BUN/Creat Ratio 14.3 RATIO (10-20); Calcium,Total 8.2 mg/dL (8.5-10.1); Chloride 101 mmol/L (98-107); Creatinine, Serum 3.28 mg/dL (0.70-1.30); EST Glomerular Filtration Rate 20 mL/min (>60); Est Glom Filt Rate - Afr Amer 25 mL/min (>60); Estimated Creatinine Clearance 22.75 ml/min; Glucose 282 mg/dL (74-106); Phosphorus 3.3 mg/dL (2.5-4.9); Potassium 3.6 mmol/L (3.5-5.1); Sodium Level 138 mmol/L (136-145)
[2020-04-04] MEDS: Cyanocobalamin 500 MCG Tablet 1000 MCG PO (09:08)
[2020-04-04] MEDS: amLODIPine 10 MG Tablet PO (09:08)
[2020-04-04] MEDS: Folic Acid/Vitamin B Comp W-C 1 Capsule 1 CAP PO (09:08)
[2020-04-04] MEDS: Furosemide 80 MG Tablet PO (09:08)
[2020-04-04] MEDS: Pantoprazole Sodium 40 MG Tablet PO (09:08)
[2020-04-04] MEDS: Aspirin E.C. 81 MG Tablet PO (09:08)
[2020-04-04] MEDS: hydrALAZINE 25 MG Tablet PO ×2 (09:09→21:51)
[2020-04-04 11:15] LABS: Bedside Glucose 314 mg/dL (70-110)
[2020-04-04] MEDS: Amox/Clavulanate 500 MG Tablet PO (16:52)
[2020-04-04] MEDS: Tamsulosin HCl 0.4 MG Capsule PO (16:52)
[2020-04-04] MEDS: Insulin Human 75/25 Kwickpen 10 UNIT SC (16:54)
[2020-04-04 17:20] LABS: Bedside Glucose 258 mg/dL (70-110)
--- NOTE | 2020-04-04 21:00 | NURSING ---
Pt informed at this time that we will be testing him for COVID.
[2020-04-04] MEDS: GUANFACINE HCL 1 MG TAB.ER.24H PO (21:52)
[2020-04-04 23:04] LABS: Probe Check PASS; Specimen Processing Control PASS
[2020-04-05] VITALS (21 sets, daily range): BP systolic 155–184; BP diastolic 70–91; PULSE 82–92; RESP 15–18; TEMP 36.9–37.1; O2SAT 95–100
[2020-04-05 01:20] LABS: Bedside Glucose 311 mg/dL (70-110)
[2020-04-05 02:50] LABS: Bedside Glucose 231 mg/dL (70-110)
[2020-04-05] MEDS: Heparin Injection (Vial) 5,000 UNIT/ML VIAL 5000 UNIT SC ×3 (05:37→22:15)
[2020-04-05 06:37] LABS: Albumin, Serum 2.1 g/dL (3.2-5.0); BUN 47 mg/dL (7-18); BUN/Creat Ratio 14.6 RATIO (10-20); Calcium,Total 8.1 mg/dL (8.5-10.1); Chloride 103 mmol/L (98-107); Creatinine, Serum 3.22 mg/dL (0.70-1.30); EST Glomerular Filtration Rate 21 mL/min (>60); Est Glom Filt Rate - Afr Amer 25 mL/min (>60); Estimated Creatinine Clearance 23.18 ml/min; Glucose 214 mg/dL (74-106); Phosphorus 3.4 mg/dL (2.5-4.9); Potassium 3.7 mmol/L (3.5-5.1); Sodium Level 138 mmol/L (136-145)
[2020-04-05] MEDS: hydrALAZINE 25 MG Tablet PO ×2 (08:26→15:39)
[2020-04-05] MEDS: Insulin Human 75/25 Kwickpen 10 UNIT SC (08:28)
[2020-04-05] MEDS: Insulin Lispro 100 UNIT/ML INSULN.PEN SC ×4 (08:29→22:16)
[2020-04-05 09:16] LABS: Bedside Glucose 220 mg/dL (70-110)
--- NOTE | 2020-04-05 10:05 | CASEMGMT ---
SW called [facility] and left a voice mail inquiring if they were able to accept patient. SW received a message from Josie at [facility] and they do not have any beds. They are also not taking dialysis patients at this time. Await call from Mallory Jeff also. SW will have to obtain a level of care through [facility] once we know the SNF for sure. Sasha FREIRE MSW
--- NOTE | 2020-04-05 10:24 | CASEMGMT ---
Per Hali at [facility], they have set pt up for TTS at 0610 at this time. [facility] to be updated on SNF placement and d/c date when available. Per Hali, they have all other paperwork needed at this time. CM to follow. Scott LAY CM
[2020-04-05] MEDS: Cyanocobalamin 500 MCG Tablet 1000 MCG PO (10:25)
[2020-04-05] MEDS: Folic Acid/Vitamin B Comp W-C 1 Capsule 1 CAP PO (10:25)
[2020-04-05] MEDS: Aspirin E.C. 81 MG Tablet PO (10:25)
[2020-04-05] MEDS: Furosemide 80 MG Tablet PO ×2 (10:25→17:35)
[2020-04-05] MEDS: Pantoprazole Sodium 40 MG Tablet PO (10:25)
[2020-04-05] MEDS: amLODIPine 10 MG Tablet PO (10:26)
--- NOTE | 2020-04-05 10:32 | CASEMGMT ---
DANITZA received a return call from Lesley at [facility]. Their boiler house mechanic is looking at the referral. She thinks they would be able to take him. DANITZA gave her the dialysis schedule, ,,Sat 6:10a. She will get back to as soon as she hears something. Sasha FREIRE MSW
--- NOTE | 2020-04-05 11:10 | PN.RENAL_ITS ---
Patient Problems: Active and Suspected Problems (Last Reviewed 03/29/20 @ 21:[address] Joe Montaño MD) Nephrotic syndrome (Acute) Pneumonia (Acute) Hyperkalemia (Acute) Chronic kidney disease (CKD) (Acute) Subjective: still with anasarca but diuresed well over weekend. Creatinine stable at 3.2 today. Continue with lasix po bid. Holding dialysis for today. - Physical Exam Vitals/I&O's: Vital Signs Temp Pulse Resp BP Pulse Ox 98.7 F 92 16 177/76 H 100 04/05/20 08:16 04/05/20 10:43 04/05/20 08:16 04/05/20 10:43 04/05/20 08:16 Oxygen Delivery Method Room Air Weight: 121 kg Body Mass Index (BMI) 41.5 Finger Stick Blood Glucose 76 Intake and Output for Last 24 Hours 04/03/20 04/04/20 04/05/20 23:59 23:59 23:59 Intake Total 1230 / 1230 1160 / 1160 120 / 120 Output Total 2550 / 2550 2895 / 2895 780 / 780 Balance -1320 / -1320 -1735 / -1735 -660 / -660 General: Alert, Oriented x3, Cooperative Lungs: Clear to auscultation Cardiovascular: Regular rate Abdomen: Bowel Sounds Present, Soft, Non Tender, Obese Extremities: Edema - anasarca Psych/Mental Status: Normal Affect, Appropriate, Alert and oriented to time, place, person, mood and affect Laboratory Results 04/04/20 11:09: POC Glucose 314 H 04/04/20 16:49: POC Glucose 258 H 04/04/20 21:25: COVID-19 (RADHA) Negative 04/04/20 21:44: POC Glucose 311 H 04/05/20 02:28: POC Glucose 231 H 04/05/20 05:35: Sodium 138, Potassium 3.7, Chloride 103, Carbon Dioxide 29.0, BUN 47 H, Creatinine 3.22 H, Estim Creat Clear Calc 23.18, Est GFR (MDRD) Af Amer 25 L, Est GFR (MDRD) Non-Af 21 L, BUN/Creatinine Ratio 14.6, Glucose 214 H, Calcium 8.1 L, Phosphorus 3.4, Albumin 2.1 L 04/05/20 08:00: Urine Creatinine 50.00 04/05/20 08:21: POC Glucose 220 H Current Medications Acetaminophen (Acetaminophen 325 Mg Tablet) 650 mg PO Q6H PRN PRN PRN Reason: Pain Score 1-10/Temp > 100.7 F Last Admin: 04/02/20 10:47 Dose: 650 mg Documented by: Albuterol Sulfate (Albuterol 2.5 Mg/3 Ml Vial.Neb.) 2.5 mg INHALATION Q4H PRN PRN PRN Reason: SOB/WHEEZING Last Admin: 03/30/20 19:13 Dose: 2.5 mg Documented by: Amlodipine Besylate (Amlodipine 10 Mg Tablet) 10 mg PO DAILY [facility] Last Admin: 04/05/20 10:26 Dose: 10 mg Documented by: Amoxicillin/Clavulanate Potassium (Amox/Clavulanate 500 Mg Tablet) 500 mg PO DAILY@1700 [facility] Stop: 04/08/20 23:59 Last Admin: 04/04/20 16:52 Dose: 500 mg Documented by: Aspirin (Aspirin E.C. 81 Mg Tablet) 81 mg PO DAILY [facility] Last Admin: 04/05/20 10:25 Dose: 81 mg Documented by: Carvedilol (Carvedilol 25 Mg Tablet) 25 mg PO BID [facility] Last Admin: 03/30/20 11:45 Dose: 25 mg Documented by: Cyanocobalamin (Cyanocobalamin 500 Mcg Tablet) 1,000 mcg PO DAILY [facility] Last Admin: 04/05/20 10:25 Dose: 1,000 mcg Documented by: Dextrose (Dextrose 50%-Water 25 Gm/50 Ml Disp.Syrin) 0 gm IV X1 PRN; Protocol PRN Reason: Hypoglycemia Ergocalciferol (Ergocalciferol 50,000 Unit Capsule) 50,000 unit PO QWEEK [facility] Last Admin: 04/05/20 10:25 Dose: 50,000 unit Documented by: Furosemide (Furosemide 80 Mg Tablet) 80 mg PO BID@1000,1800 [facility] Last Admin: 04/05/20 10:25 Dose: 80 mg Documented by: Glucagon (Glucagon 1 Mg/Ml Syringe) 1 mg IM .X1 PRN PRN Reason: Hypoglycemia Guanfacine HCl (Guanfacine Hcl 1 Mg Tab.Er.24h) 1 mg PO DAILY@2200 [facility] Last Admin: 11/15/20 21:52 Dose: 1 mg Documented by: Heparin Sodium (Porcine) (Heparin Injection (Vial) 5,000 Unit/Ml Vial) 5,000 unit SC Q8 [facility] Last Admin: 04/05/20 05:37 Dose: 5,000 unit Documented by: Hydralazine HCl (Hydralazine 20 Mg/Ml Vial) 5 mg IV Q6H PRN PRN PRN Reason: BLOOD PRESSURE Last Admin: 04/03/20 10:30 Dose: 5 mg Documented by: Hydralazine HCl (Hydralazine 25 Mg Tablet) 25 mg PO BID [facility] Last Admin: 04/05/20 08:26 Dose: 25 mg Documented by: Sodium Chloride () 500 mls @ 15 mls/hr IV PRN PRN PRN Reason: Blood Transfusion Last Infusion: 04/04/20 21:58 Dose: Infused Documented by: Sodium Chloride () 250 mls @ 15 mls/hr IV .[id number] PRN PRN Reason: Saline Flush Sodium Chloride () 250 mls @ 15 mls/hr IV .[id number] PRN PRN Reason: Additional IVPB Infusion Insulin Glargine (Insulin Glargine 100 Units/Ml Pen) 30 units SC DAILY [facility] Last Admin: 04/05/20 10:28 Dose: 30 units Documented by: Insulin Human Lispro (Insulin Lispro 100 Unit/Ml Insuln.Pen) 0 unit SC ACHS [facility]; Protocol Last Admin: 04/05/20 08:29 Dose: 6 units Documented by: Insulin Lispro Protam/Lispro Human (Insulin Human 75/25 Kwickpen) 15 unit SC BREAKFAST [facility] Insulin Lispro Protam/Lispro Human (Insulin Human 75/25 Kwickpen) 15 unit SC DINNER [facility] Multivit/Ca Carb/B Cmplx/FA/Prenat (Folic Acid/Vitamin B Comp W-C 1 Capsule) 1 capsule PO DAILY [facility] Last Admin: 04/05/20 10:25 Dose: 1 capsule Documented by: Nystatin (Nystatin Ointment) 1 applic TOPICAL BID [facility]; Protocol Last Admin: 04/04/20 21:51 Dose: Not Given Documented by: Ondansetron HCl (Ondansetron 4 Mg/2 Ml Vial) 4 mg IV Q8H PRN PRN PRN Reason: NAUSEA/VOMITING Last Admin: 04/02/20 00:06 Dose: 4 mg Documented by: Pantoprazole Sodium (Pantoprazole Sodium 40 Mg Tablet) 40 mg PO DAILY [facility] Last Admin: 04/05/20 10:25 Dose: 40 mg Documented by: Polyethylene Glycol (Polyethylene Glycol 3350 17 Gm Packet) 34 gm PO X1 PRN PRN Reason: Bowel Movement Last Admin: 04/04/20 07:35 Dose: 34 gm Documented by: Sodium Chloride (0.9% Saline Lock 10 Ml Syringe) 10 - 40 ml IV UD PRN PRN Reason: SALINE FLUSH Last Admin: 04/03/20 10:30 Dose: 10 ml Documented by: Tamsulosin HCl (Tamsulosin Hcl 0.4 Mg Capsule) 0.4 mg PO DAILY@1730 [facility] Last Admin: 04/04/20 16:52 Dose: 0.4 mg Documented by: Medical Necessity - Tobacco Use Smoking Status: Never smoker Assessment/Plan All Active Problems (Last Reviewed 03/29/20 @ 21:[address] Joe Montaño MD) Iron deficiency anemia (Acute) Nephrotic syndrome (Acute) Pneumonia (Acute) Hyperkalemia (Acute) Chronic kidney disease (CKD) (Acute) TIA (transient ischemic attack) (Resolved 09/19/18) Abrasion, left lower leg, initial encounter (Resolved) Contusion of left knee (Resolved) Contusion of lower leg, left (Resolved) Febrile illness (Resolved) History of small bowel obstruction (Resolved) Myocardial infarct (Resolved) Stroke-like symptoms (Resolved) Syncope (Resolved 10/16/18) history of traumatic pneumothorax (Resolved) 1. ESRD vs Acute on CKD 4 due to diabetes. Creatinine stabilized at 3.2 today with increased diuresis over weekend with lasix. Hold dialysis today. Reassess in am to determine if need further dialysis. 24h urine CRCL 16cc/min with Scr 4.9 but now eGFR around 30cc/min based on serum creatinine of 3.2 today. Last HD #3 on Sunday. 2. Hyperkalemia resolved 3. Iron def anemia iv iron load, s/p prbc 4. DM2 with nephrotic syndrome, continue oral lasix 80mg bid. Diuresing well. 5. HTN increase hydralazine to tid 6. Anasarca due to nephrotic proteinuria. Urine CLAUDIA no monoclonal antibody
[2020-04-05 11:25] LABS: Bedside Glucose 304 mg/dL (70-110)
[2020-04-05] MEDS: 0.9% Saline Lock 10 ML Syringe IV ×3 (12:28→21:05)
[2020-04-05] MEDS: hydrALAZINE 20 MG/ML Vial 5 MG IV ×2 (12:29→18:53)
--- NOTE | 2020-04-05 13:51 | NURSING ---
wound photo: left lower leg
--- NOTE | 2020-04-05 13:51 | NURSING ---
wound photo: right medial lower leg
--- NOTE | 2020-04-05 13:52 | NURSING ---
wound photo: right anterolateral lower leg
[2020-04-05] MEDS: Nystatin Ointment 1 APPLIC TOPICAL (15:39)
--- NOTE | 2020-04-05 16:02 | PCM.PN.HOSP ---
Patient Problems: Active and Suspected Problems (Last Reviewed 03/29/20 @ 21:[address] Joe Montaño MD) Nephrotic syndrome (Acute) Pneumonia (Acute) Hyperkalemia (Acute) Chronic kidney disease (CKD) (Acute) Reason for Visit: Follow-up for bilateral lower leg edema, pneumonia and new start of hemodialysis Objective: Patient has bilateral lower leg edema mainly thighs and around the knees. Bilateral Eb wrap bandage. Not short of breath. Denies any cough or sputum production. Physical exam General: Alert, Oriented x3, Cooperative HEENT: Atraumatic, PERRLA, EOMI, Normocephalic Oral: No Gingival or Mucosal Lesions/ Ulcerations Neck: Supple, No JVD, Negative Carotid Bruits Lungs: Air entry diminished in bilateral lung bases. No crepitation/rhonchi. Cardiovascular: Regular rate, Regular Rhythm, Normal S1, Normal S2, No murmurs Abdomen: Bowel Sounds Present, Soft, Non Tender, Non-Distended : On hemodialysis. No renal angle tenderness. No suprapubic tenderness. Extremities: Bilateral 3+ lower extremity edema, Capillary Refill Less than 3 Seconds Skin: No rashes, No breakdown Musculoskeletal: No Tenderness to Palpation of Joints or Extremities Neurological: Cranial nerves II-XII grossly intact, Deep Tendon Reflexes 2+/4 and Symmetrical, Neuro grossly intact Psych/Mental Status: Normal Affect, Appropriate. Vitals/I&O's: Vital Signs Temp Pulse Resp BP Pulse Ox 98.6 F 88 18 181/79 H 96 04/05/20 15:35 04/05/20 15:39 04/05/20 15:35 04/05/20 15:39 04/05/20 15:35 Oxygen Delivery Method Room Air Weight: 266 lb 12.149 oz Body Mass Index (BMI) 41.5 Finger Stick Blood Glucose 76 Intake and Output for Last 24 Hours 04/03/20 04/04/20 04/05/20 23:59 23:59 23:59 Intake Total 1230 / 1230 1160 / 1160 570 / 570 Output Total 2550 / 2550 2895 / 2895 1380 / 1380 Balance -1320 / -1320 -1735 / -1735 -810 / -810 Laboratory Results 04/04/20 16:49: POC Glucose 258 H 04/04/20 21:25: COVID-19 (RADHA) Negative 04/04/20 21:44: POC Glucose 311 H 04/05/20 02:28: POC Glucose 231 H 04/05/20 05:35: Sodium 138, Potassium 3.7, Chloride 103, Carbon Dioxide 29.0, BUN 47 H, Creatinine 3.22 H, Estim Creat Clear Calc 23.18, Est GFR (MDRD) Af Amer 25 L, Est GFR (MDRD) Non-Af 21 L, BUN/Creatinine Ratio 14.6, Glucose 214 H, Calcium 8.1 L, Phosphorus 3.4, Albumin 2.1 L 04/05/20 08:00: Urine Creatinine 50.00 04/05/20 08:21: POC Glucose 220 H 04/05/20 11:19: POC Glucose 304 H Current Medications Acetaminophen (Acetaminophen 325 Mg Tablet) 650 mg PO Q6H PRN PRN PRN Reason: Pain Score 1-10/Temp > 100.7 F Last Admin: 04/02/20 10:47 Dose: 650 mg Documented by: Albuterol Sulfate (Albuterol 2.5 Mg/3 Ml Vial.Neb.) 2.5 mg INHALATION Q4H PRN PRN PRN Reason: SOB/WHEEZING Last Admin: 03/30/20 19:13 Dose: 2.5 mg Documented by: Amlodipine Besylate (Amlodipine 10 Mg Tablet) 10 mg PO DAILY [facility] [place] Last Admin: 04/05/20 10:26 Dose: 10 mg Documented by: Amoxicillin/Clavulanate Potassium (Amox/Clavulanate 500 Mg Tablet) 500 mg PO DAILY@1700 [facility] [place] Stop: 04/08/20 23:59 Last Admin: 04/04/20 16:52 Dose: 500 mg Documented by: Aspirin (Aspirin E.C. 81 Mg Tablet) 81 mg PO DAILY [facility] Last Admin: 04/05/20 10:25 Dose: 81 mg Documented by: Carvedilol (Carvedilol 25 Mg Tablet) 25 mg PO BID [facility] [place] Last Admin: 03/30/20 11:45 Dose: 25 mg Documented by: Cyanocobalamin (Cyanocobalamin 500 Mcg Tablet) 1,000 mcg PO DAILY [facility] [place] Last Admin: 04/05/20 10:25 Dose: 1,000 mcg Documented by: Dextrose (Dextrose 50%-Water 25 Gm/50 Ml Disp.Syrin) 0 gm IV X1 PRN; Protocol PRN Reason: Hypoglycemia Ergocalciferol (Ergocalciferol 50,000 Unit Capsule) 50,000 unit PO QWEEK [facility] Last Admin: 04/05/20 10:25 Dose: 50,000 unit Documented by: Furosemide (Furosemide 80 Mg Tablet) 80 mg PO BID@1000,1800 [facility] Last Admin: 04/05/20 10:25 Dose: 80 mg Documented by: Glucagon (Glucagon 1 Mg/Ml Syringe) 1 mg IM .X1 PRN PRN Reason: Hypoglycemia Guanfacine HCl (Guanfacine Hcl 1 Mg Tab.Er.24h) 1 mg PO DAILY@2200 [facility] Last Admin: 04/04/20 21:52 Dose: 1 mg Documented by: Heparin Sodium (Porcine) (Heparin Injection (Vial) 5,000 Unit/Ml Vial) 5,000 unit SC Q8 [facility] [place] Last Admin: 04/05/20 15:40 Dose: 5,000 unit Documented by: Hydralazine HCl (Hydralazine 20 Mg/Ml Vial) 5 mg IV Q6H PRN PRN PRN Reason: BLOOD PRESSURE Last Admin: 04/05/20 12:29 Dose: 5 mg Documented by: Hydralazine HCl (Hydralazine 25 Mg Tablet) 25 mg PO TID [facility] Last Admin: 04/05/20 15:39 Dose: 25 mg Documented by: Sodium Chloride () 500 mls @ 15 mls/hr IV PRN PRN PRN Reason: Blood Transfusion Last Infusion: 04/04/20 21:58 Dose: Infused Documented by: Sodium Chloride () 250 mls @ 15 mls/hr IV .[id number] PRN PRN Reason: Saline Flush Sodium Chloride () 250 mls @ 15 mls/hr IV .[id number] PRN PRN Reason: Additional IVPB Infusion Insulin Glargine (Insulin Glargine 100 Units/Ml Pen) 30 units SC DAILY [facility] Last Admin: 04/05/20 10:28 Dose: 30 units Documented by: Insulin Human Lispro (Insulin Lispro 100 Unit/Ml Insuln.Pen) 0 unit SC ACHS [facility] [place]; Protocol Last Admin: 04/05/20 12:09 Dose: 9 units Documented by: Insulin Lispro Protam/Lispro Human (Insulin Human 75/25 Kwickpen) 15 unit SC BREAKFAST [facility] [place] Insulin Lispro Protam/Lispro Human (Insulin Human 75/25 Kwickpen) 15 unit SC DINNER [facility] [place] Multivit/Ca Carb/B Cmplx/FA/Prenat (Folic Acid/Vitamin B Comp W-C 1 Capsule) 1 capsule PO DAILY [facility] [place] Last Admin: 04/05/20 10:25 Dose: 1 capsule Documented by: Nystatin (Nystatin Ointment) 1 applic TOPICAL BID [facility] [place]; Protocol Last Admin: 04/05/20 15:39 Dose: 1 applicatio Documented by: Ondansetron HCl (Ondansetron 4 Mg/2 Ml Vial) 4 mg IV Q8H PRN PRN PRN Reason: NAUSEA/VOMITING Last Admin: 04/02/20 00:06 Dose: 4 mg Documented by: Pantoprazole Sodium (Pantoprazole Sodium 40 Mg Tablet) 40 mg PO DAILY [facility] [place] Last Admin: 04/05/20 10:25 Dose: 40 mg Documented by: Polyethylene Glycol (Polyethylene Glycol 3350 17 Gm Packet) 34 gm PO X1 PRN PRN Reason: Bowel Movement Last Admin: 04/04/20 07:35 Dose: 34 gm Documented by: Sodium Chloride (0.9% Saline Lock 10 Ml Syringe) 10 - 40 ml IV UD PRN PRN Reason: SALINE FLUSH Last Admin: 04/05/20 12:28 Dose: 10 ml Documented by: Tamsulosin HCl (Tamsulosin Hcl 0.4 Mg Capsule) 0.4 mg PO DAILY@1730 [facility] [place] Last Admin: 04/04/20 16:52 Dose: 0.4 mg Documented by: STROKE Vital Signs/Narrative: Vital Signs Temp Pulse Resp BP BP Pulse Ox 04/05/20 15:39 88 181/79 H 04/05/20 15:35 98.6 F 88 18 181/79 H 96 04/05/20 12:29 98.6 F 90 18 177/76 H 97 04/05/20 12:26 90 175/77 H 97 Medical Necessity - Tobacco Use Smoking Status: Never smoker Assessment/Plan All Active Problems (Last Reviewed 03/29/20 @ 21:[address] Joe Montaño MD) Iron deficiency anemia (Acute) Nephrotic syndrome (Acute) Pneumonia (Acute) Hyperkalemia (Acute) Chronic kidney disease (CKD) (Acute) TIA (transient ischemic attack) (Resolved 09/19/18) Abrasion, left lower leg, initial encounter (Resolved) Contusion of left knee (Resolved) Contusion of lower leg, left (Resolved) Febrile illness (Resolved) History of small bowel obstruction (Resolved) Myocardial infarct (Resolved) Stroke-like symptoms (Resolved) Syncope (Resolved 10/16/18) history of traumatic pneumothorax (Resolved) 1. Hyperkalemia, resolved. Patient was started on hemodialysis. Status post Kayexalate and Miralax Will continue to monitor off losartan 2. ANGELIA on CKD stage IV, previous creatinine of 3.1, admitted creatinine of 4.32, worsening. Patient was seen by Dr. Sanford had tunneled dialysis catheter. Had 3 currently 3 days of hemodialysis. 980 mL of urine output.. Losartan on hold. 3. Acute on chronic anemia of CKD, status post 1 unit PRBC transfusion; repeat Hb is 8.3 stable. Stool for occult blood is negative. Status post 1 unit packed RBCs 4. Pneumonia, without hypoxia, slowly improving, urine sodium growth and Legionella antigen negative Continue on Augmentin to complete 10 days; last dose was 04/08/20. 5. type II DM, blood sugar elevated. Patient on Lantus insulin and 7525, dose was adjusted. 6. Chronic venostasis with chronic leg ulcers with mild erythema 7. Hypertension, blood pressure was relatively low, now is uncontrolled Continued on carvedilol, amlodipine Will add hydralazine 25mg BID, will continue to monitor 8. DVT prophylaxis with heparin SC Inpatient E&M: [id number] [facility] L2
[2020-04-05 16:05] LABS: Bedside Glucose 331 mg/dL (70-110)
[2020-04-05] MEDS: Amox/Clavulanate 500 MG Tablet PO (17:34)
[2020-04-05] MEDS: Tamsulosin HCl 0.4 MG Capsule PO (17:35)
[2020-04-05] MEDS: Insulin Human 75/25 Kwickpen 20 UNIT SC (17:38)
[2020-04-05] MEDS: Bisacodyl 10 MG Suppository RECTAL (20:21)
[2020-04-05] MEDS: Metoprolol Tartrate 5 MG/5 ML Vial IV (21:05)
[2020-04-05] MEDS: hydrALAZINE 25 MG Tablet 75 MG PO (22:15)
[2020-04-05] MEDS: GUANFACINE HCL 1 MG TAB.ER.24H PO (22:16)
[2020-04-05 22:26] LABS: Bedside Glucose 313 mg/dL (70-110)
[2020-04-05] MEDS: Isosorbide Mononitrate 30 MG Tablet PO (23:18)
[2020-04-06] VITALS (13 sets, daily range): BP systolic 129–150; BP diastolic 55–78; PULSE 76–89; RESP 14–16; TEMP 36.6–36.9; O2SAT 95–98
[2020-04-06 01:31] LABS: Bedside Glucose 263 mg/dL (70-110)
[2020-04-06] MEDS: Heparin Injection (Vial) 5,000 UNIT/ML VIAL 5000 UNIT SC ×3 (06:11→21:52)
[2020-04-06 06:18] LABS: Hematocrit 27.3 % (40-54); Hemoglobin 8.1 g/dL (13.0-16.5); Mean Corp Hgb Conc 29.7 g/dL (32-36); Mean Corpuscular Hgb 24.8 pg (27.0-32.0); Mean Corpuscular Volume 83.7 fL (80-94); Mean Platelet Vol. 10.7 fl (6.2-12.0); Platelet Count 202 K/mm3 (150-450); RBC Distribution Width CV 14.6 % (11.6-14.6); RBC Distribution Width SD 43.8 fl (35.1-43.9); Red Blood Count 3.26 M/mm3 (4.6-6.2); White Blood Count 7.1 K/mm3 (4.4-11.0)
[2020-04-06 06:41] LABS: Albumin, Serum 2.1 g/dL (3.2-5.0); BUN 52 mg/dL (7-18); BUN/Creat Ratio 15.2 RATIO (10-20); Chloride 99 mmol/L (98-107); Creatinine, Serum 3.43 mg/dL (0.70-1.30); EST Glomerular Filtration Rate 19 mL/min (>60); Est Glom Filt Rate - Afr Amer 23 mL/min (>60); Estimated Creatinine Clearance 21.76 ml/min; Glucose 274 mg/dL (74-106); Phosphorus 3.7 mg/dL (2.5-4.9); Potassium 3.9 mmol/L (3.5-5.1); Sodium Level 134 mmol/L (136-145)
[2020-04-06 08:45] LABS: Bedside Glucose 264 mg/dL (70-110)
--- NOTE | 2020-04-06 10:31 | PN.RENAL_ITS ---
Patient Problems: Active and Suspected Problems (Last Reviewed 03/29/20 @ 21:[address] Joe Montaño MD) Nephrotic syndrome (Acute) Pneumonia (Acute) Hyperkalemia (Acute) Chronic kidney disease (CKD) (Acute) Subjective: seen on dialysis, UF only today for anasarca. - Physical Exam Vitals/I&O's: Vital Signs Temp Pulse Resp BP Pulse Ox 97.9 F 77 15 129/55 H 97 04/06/20 06:07 04/06/20 07:10 04/06/20 06:07 04/06/20 06:37 04/06/20 06:07 Oxygen Delivery Method Room Air Weight: 121 kg Body Mass Index (BMI) 41.5 Finger Stick Blood Glucose 76 Intake and Output for Last 24 Hours 04/04/20 04/05/20 04/06/20 23:59 23:59 23:59 Intake Total 1160 / 1160 1220 / 1220 0 / 0 Output Total 2895 / 2895 2305 / 2305 400 / 400 Balance -1735 / -1735 -1085 / -1085 -400 / -400 General: Alert, Oriented x3, Cooperative, No apparent distress Extremities: Edema Psych/Mental Status: Normal Affect, Appropriate, Alert and oriented to time, place, person, mood and affect Laboratory Results 04/05/20 11:19: POC Glucose 304 H 04/05/20 15:59: POC Glucose 331 H 04/05/20 22:10: POC Glucose 313 H 04/06/20 01:28: POC Glucose 263 H 04/06/20 06:04: Sodium 134 L, Potassium 3.9, Chloride 99, Carbon Dioxide 27.0, BUN 52 H, Creatinine 3.43 H, Estim Creat Clear Calc 21.76, Est GFR (MDRD) Af Amer 23 L, Est GFR (MDRD) Non-Af 19 L, BUN/Creatinine Ratio 15.2, Glucose 274 H, Calcium 8.0 L, Phosphorus 3.7, Albumin 2.1 L 04/06/20 06:04: WBC 7.1, RBC 3.26 L, Hgb 8.1 L, Hct 27.3 L, MCV 83.7, MCH 24.8 L , MCHC 29.7 L, RDW Std Deviation 43.8, RDW Coeff of Lina 14.6, Plt Count 202, MPV 10.7 04/06/20 08:36: POC Glucose 264 H Current Medications Acetaminophen (Acetaminophen 325 Mg Tablet) 650 mg PO Q6H PRN PRN PRN Reason: Pain Score 1-10/Temp > 100.7 F Last Admin: 04/02/20 10:47 Dose: 650 mg Documented by: Albuterol Sulfate (Albuterol 2.5 Mg/3 Ml Vial.Neb.) 2.5 mg INHALATION Q4H PRN PRN PRN Reason: SOB/WHEEZING Last Admin: 03/30/20 19:13 Dose: 2.5 mg Documented by: Amlodipine Besylate (Amlodipine 10 Mg Tablet) 10 mg PO DAILY [facility] Last Admin: 04/05/20 10:26 Dose: 10 mg Documented by: Amoxicillin/Clavulanate Potassium (Amox/Clavulanate 500 Mg Tablet) 500 mg PO DAILY@1700 [facility] Stop: 04/08/20 23:59 Last Admin: 04/05/20 17:34 Dose: 500 mg Documented by: Aspirin (Aspirin E.C. 81 Mg Tablet) 81 mg PO DAILY [facility] Last Admin: 04/05/20 10:25 Dose: 81 mg Documented by: Bisacodyl (Bisacodyl 10 Mg Suppository) 10 mg RECTAL DAILY PRN PRN Reason: Constipation Carvedilol (Carvedilol 25 Mg Tablet) 25 mg PO BID [facility] Last Admin: 03/30/20 11:45 Dose: 25 mg Documented by: Cyanocobalamin (Cyanocobalamin 500 Mcg Tablet) 1,000 mcg PO DAILY [facility] Last Admin: 04/05/20 10:25 Dose: 1,000 mcg Documented by: Dextrose (Dextrose 50%-Water 25 Gm/50 Ml Disp.Syrin) 0 gm IV X1 PRN; Protocol PRN Reason: Hypoglycemia Ergocalciferol (Ergocalciferol 50,000 Unit Capsule) 50,000 unit PO QWEEK [facility] Last Admin: 04/05/20 10:25 Dose: 50,000 unit Documented by: Furosemide (Furosemide 80 Mg Tablet) 80 mg PO BID@1000,1800 [facility] Last Admin: 04/05/20 17:35 Dose: 80 mg Documented by: Glucagon (Glucagon 1 Mg/Ml Syringe) 1 mg IM .X1 PRN PRN Reason: Hypoglycemia Guanfacine HCl (Guanfacine Hcl 1 Mg Tab.Er.24h) 1 mg PO DAILY@2200 [facility] Last Admin: 04/05/20 22:16 Dose: 1 mg Documented by: Heparin Sodium (Porcine) (Heparin Injection (Vial) 5,000 Unit/Ml Vial) 5,000 unit SC Q8 [facility] Last Admin: 04/06/20 06:11 Dose: 5,000 unit Documented by: Hydralazine HCl (Hydralazine 25 Mg Tablet) 75 mg PO TID [facility] Last Admin: 04/06/20 06:37 Dose: Not Given Documented by: Hydralazine HCl (Hydralazine 20 Mg/Ml Vial) 10 mg IV Q4H PRN PRN PRN Reason: SBP > 160 Sodium Chloride () 500 mls @ 15 mls/hr IV PRN PRN PRN Reason: Blood Transfusion Last Infusion: 04/04/20 21:58 Dose: Infused Documented by: Sodium Chloride () 250 mls @ 15 mls/hr IV .[id number] PRN PRN Reason: Saline Flush Sodium Chloride () 250 mls @ 15 mls/hr IV .[id number] PRN PRN Reason: Additional IVPB Infusion Insulin Glargine (Insulin Glargine 100 Units/Ml Pen) 40 units SC DAILY [facility] Insulin Human Lispro (Insulin Lispro 100 Unit/Ml Insuln.Pen) 0 unit SC [facility]; Protocol Last Admin: 04/05/20 22:16 Dose: 9 units Documented by: Insulin Lispro Protam/Lispro Human (Insulin Human 75/25 [place]) 30 unit SC BREAKFAST [facility] Insulin Lispro Protam/Lispro Human (Insulin Human 75/25 [place]) 30 unit SC DINNER [facility] Isosorbide Mononitrate (Isosorbide Mononitrate 30 Mg Tablet) 30 mg PO DAILY [facility] Metoprolol Tartrate (Metoprolol Tartrate 5 Mg/5 Ml Vial) 5 mg IV Q8H PRN PRN PRN Reason: SBP > 160, hold for HR < 60 Last Admin: 04/05/20 21:05 Dose: 5 mg Documented by: Multivit/Ca Carb/B Cmplx/FA/Prenat (Folic Acid/Vitamin B Comp W-C 1 Capsule) 1 capsule PO DAILY [facility] Last Admin: 04/05/20 10:25 Dose: 1 capsule Documented by: Nystatin (Nystatin Ointment) 1 applic TOPICAL BID [facility]; Protocol Last Admin: 04/05/20 22:16 Dose: Not Given Documented by: Ondansetron HCl (Ondansetron 4 Mg/2 Ml Vial) 4 mg IV Q8H PRN PRN PRN Reason: NAUSEA/VOMITING Last Admin: 04/02/20 00:06 Dose: 4 mg Documented by: Pantoprazole Sodium (Pantoprazole Sodium 40 Mg Tablet) 40 mg PO DAILY [facility] Last Admin: 04/05/20 10:25 Dose: 40 mg Documented by: Polyethylene Glycol (Polyethylene Glycol 3350 17 Gm Packet) 34 gm PO X1 PRN PRN Reason: Bowel Movement Last Admin: 04/04/20 07:35 Dose: 34 gm Documented by: Sodium Chloride (0.9% Saline Lock 10 Ml Syringe) 10 - 40 ml IV UD PRN PRN Reason: SALINE FLUSH Last Admin: 04/05/20 21:05 Dose: 20 ml Documented by: Tamsulosin HCl (Tamsulosin Hcl 0.4 Mg Capsule) 0.4 mg PO DAILY@1730 [facility] Last Admin: 04/05/20 17:35 Dose: 0.4 mg Documented by: Medical Necessity - Tobacco Use Smoking Status: Never smoker Assessment/Plan All Active Problems (Last Reviewed 03/29/20 @ 21:[address] Joe Montaño MD) Iron deficiency anemia (Acute) Nephrotic syndrome (Acute) Pneumonia (Acute) Hyperkalemia (Acute) Chronic kidney disease (CKD) (Acute) TIA (transient ischemic attack) (Resolved 09/19/18) Abrasion, left lower leg, initial encounter (Resolved) Contusion of left knee (Resolved) Contusion of lower leg, left (Resolved) Febrile illness (Resolved) History of small bowel obstruction (Resolved) Myocardial infarct (Resolved) Stroke-like symptoms (Resolved) Syncope (Resolved 10/16/18) history of traumatic pneumothorax (Resolved) 1. Acute on CKD 4 vs ESRD due to diabetes. Creatinine stabilized at 3.4 today. UF only today for persistent swelling, anasarca. CRCL est to be 30cc/min with SCr 3.4. 2. Hyperkalemia resolved 3. Iron def anemia iv iron load, s/p prbc 4. DM2 with nephrotic syndrome, continue oral lasix 80mg bid. 5. HTN increase hydralazine to tid 6. Anasarca due to nephrotic proteinuria. Urine CLAUDIA no monoclonal antibody
--- NOTE | 2020-04-06 10:38 | DIALYSIS ---
IUF x 2 hours complete. Tolerated tx well. UF of 2500ml. Used right chest wall dialysis catheter. Catheter closed with heparin per fill volume. Caps placed. Dressing is dry and intact. Report was given ALIREZA Cramer.
[2020-04-06] MEDS: Insulin Human 75/25 Kwickpen 30 UNIT SC ×2 (11:09→16:59)
[2020-04-06] MEDS: Insulin Lispro 100 UNIT/ML INSULN.PEN SC ×3 (11:10→22:01)
[2020-04-06] MEDS: amLODIPine 10 MG Tablet PO (11:22)
[2020-04-06] MEDS: Furosemide 80 MG Tablet PO ×2 (11:22→17:03)
[2020-04-06] MEDS: Folic Acid/Vitamin B Comp W-C 1 Capsule 1 CAP PO (11:22)
[2020-04-06] MEDS: Isosorbide Mononitrate 30 MG Tablet PO (11:22)
[2020-04-06] MEDS: Aspirin E.C. 81 MG Tablet PO (11:22)
[2020-04-06] MEDS: Pantoprazole Sodium 40 MG Tablet PO (11:22)
[2020-04-06] MEDS: Nystatin Ointment 1 APPLIC TOPICAL (11:22)
[2020-04-06] MEDS: Cyanocobalamin 500 MCG Tablet 1000 MCG PO (11:22)
[2020-04-06 11:36] LABS: Bedside Glucose 361 mg/dL (70-110)
--- NOTE | 2020-04-06 11:45 | CASEMGMT ---
DANITZA received a call from Lesley at [facility] and they can take patient at d/c. DANITZA spoke with patient and let him know that [facility] can take him. DANITZA told him we are also waiting to see if he will be End Stage Dialysis or Acute as this will make a difference in Medicaid coverage. DANITZA wanted to let him know we are still following and working things out. Sasha FREIRE MSW
--- NOTE | 2020-04-06 12:30 | PCM.PN.HOSP ---
Patient Problems: Active and Suspected Problems (Last Reviewed 03/29/20 @ 21:[address] Joe Montaño MD) Nephrotic syndrome (Acute) Pneumonia (Acute) Hyperkalemia (Acute) Chronic kidney disease (CKD) (Acute) Reason for Visit: Follow-up for anasarca. Patient on hemodialysis. Blood pressure was elevated and patient was started on Imdur by nighttime hospitalist. Discussed with Dr. Calderón. Hydralazine was increased to 75 mg 3 times daily yesterday. Blood pressure is controlled Physical exam General: Alert, Oriented x3, Cooperative HEENT: Atraumatic, PERRLA, EOMI, Normocephalic Oral: No Gingival or Mucosal Lesions/ Ulcerations Neck: Supple, No JVD, Negative Carotid Bruits Lungs: Air entry diminished in bilateral lung bases. No crepitation/rhonchi. No tachypnea or hypoxia Cardiovascular: Regular rate, Regular Rhythm, Normal S1, Normal S2, No murmurs Abdomen: Bowel Sounds Present, Soft, Non Tender, Non-Distended. Possible mild ascites with abdominal wall superficial edema : On hemodialysis. No renal angle tenderness. No suprapubic tenderness. Extremities: Bilateral 3+ lower extremity edema, Capillary Refill Less than 3 Seconds Skin: No rashes, No breakdown Musculoskeletal: No Tenderness to Palpation of Joints or Extremities Neurological: Cranial nerves II-XII grossly intact, Deep Tendon Reflexes 2+/4 and Symmetrical, Neuro grossly intact Psych/Mental Status: Normal Affect, Appropriate. Vitals/I&O's: Vital Signs Temp Pulse Resp BP Pulse Ox 98.4 F 87 16 146/66 H 97 04/06/20 11:01 04/06/20 11:01 04/06/20 11:01 04/06/20 11:01 04/06/20 11:01 Oxygen Delivery Method Room Air Weight: 266 lb 12.149 oz Body Mass Index (BMI) 41.5 Finger Stick Blood Glucose 76 Intake and Output for Last 24 Hours 04/04/20 04/05/20 04/06/20 23:59 23:59 23:59 Intake Total 1160 / 1160 1220 / 1220 240 / 240 Output Total 2895 / 2895 2305 / 2305 500 / 500 Balance -1735 / -1735 -1085 / -1085 -260 / -260 Laboratory Results 04/05/20 15:59: POC Glucose 331 H 04/05/20 22:10: POC Glucose 313 H 04/06/20 01:28: POC Glucose 263 H 04/06/20 06:04: Sodium 134 L, Potassium 3.9, Chloride 99, Carbon Dioxide 27.0, BUN 52 H, Creatinine 3.43 H, Estim Creat Clear Calc 21.76, Est GFR (MDRD) Af Amer 23 L, Est GFR (MDRD) Non-Af 19 L, BUN/Creatinine Ratio 15.2, Glucose 274 H, Calcium 8.0 L, Phosphorus 3.7, Albumin 2.1 L 04/06/20 06:04: WBC 7.1, RBC 3.26 L, Hgb 8.1 L, Hct 27.3 L, MCV 83.7, MCH 24.8 L, MCHC 29.7 L, RDW Std Deviation 43.8, RDW Coeff of Lina 14.6, Plt Count 202, MPV 10.7 04/06/20 08:36: POC Glucose 264 H 04/06/20 11:07: POC Glucose 361 H Current Medications Acetaminophen (Acetaminophen 325 Mg Tablet) 650 mg PO Q6H PRN PRN PRN Reason: Pain Score 1-10/Temp > 100.7 F Last Admin: 04/02/20 10:47 Dose: 650 mg Documented by: Albuterol Sulfate (Albuterol 2.5 Mg/3 Ml Vial.Neb.) 2.5 mg INHALATION Q4H PRN PRN PRN Reason: SOB/WHEEZING Last Admin: 03/30/20 19:13 Dose: 2.5 mg Documented by: Amlodipine Besylate (Amlodipine 10 Mg Tablet) 10 mg PO DAILY [facility] Last Admin: 04/06/20 11:22 Dose: 10 mg Documented by: Amoxicillin/Clavulanate Potassium (Amox/Clavulanate 500 Mg Tablet) 500 mg PO DAILY@1700 [facility] Stop: 04/08/20 23:59 Last Admin: 04/05/20 17:34 Dose: 500 mg Documented by: Aspirin (Aspirin E.C. 81 Mg Tablet) 81 mg PO DAILY [facility] Last Admin: 04/06/20 11:22 Dose: 81 mg Documented by: Bisacodyl (Bisacodyl 10 Mg Suppository) 10 mg RECTAL DAILY PRN PRN Reason: Constipation Carvedilol (Carvedilol 25 Mg Tablet) 25 mg PO BID [facility] Last Admin: 03/30/20 11:45 Dose: 25 mg Documented by: Cyanocobalamin (Cyanocobalamin 500 Mcg Tablet) 1,000 mcg PO DAILY [facility] Last Admin: 04/06/20 11:22 Dose: 1,000 mcg Documented by: Dextrose (Dextrose 50%-Water 25 Gm/50 Ml Disp.Syrin) 0 gm IV X1 PRN; Protocol PRN Reason: Hypoglycemia Ergocalciferol (Ergocalciferol 50,000 Unit Capsule) 50,000 unit PO QWEEK [facility] Last Admin: 04/05/20 10:25 Dose: 50,000 unit Documented by: Furosemide (Furosemide 80 Mg Tablet) 80 mg PO BID@1000,1800 [facility] Last Admin: 04/06/20 11:22 Dose: 80 mg Documented by: Glucagon (Glucagon 1 Mg/Ml Syringe) 1 mg IM .X1 PRN PRN Reason: Hypoglycemia Guanfacine HCl (Guanfacine Hcl 1 Mg Tab.Er.24h) 1 mg PO DAILY@2200 [facility] Last Admin: 04/05/20 22:16 Dose: 1 mg Documented by: Heparin Sodium (Porcine) (Heparin Injection (Vial) 5,000 Unit/Ml Vial) 5,000 unit SC Q8 [facility] Last Admin: 04/06/20 06:11 Dose: 5,000 unit Documented by: Hydralazine HCl (Hydralazine 25 Mg Tablet) 75 mg PO TID [facility] Last Admin: 04/06/20 06:37 Dose: Not Given Documented by: Hydralazine HCl (Hydralazine 20 Mg/Ml Vial) 10 mg IV Q4H PRN PRN PRN Reason: SBP > 160 Sodium Chloride () 500 mls @ 15 mls/hr IV PRN PRN PRN Reason: Blood Transfusion Last Infusion: 04/04/20 21:58 Dose: Infused Documented by: Sodium Chloride () 250 mls @ 15 mls/hr IV .[id number] PRN PRN Reason: Saline Flush Sodium Chloride () 250 mls @ 15 mls/hr IV .[id number] PRN PRN Reason: Additional IVPB Infusion Insulin Glargine (Insulin Glargine 100 Units/Ml Pen) 40 units SC DAILY [facility] Last Admin: 04/06/20 11:10 Dose: 40 u Documented by: Insulin Human Lispro (Insulin Lispro 100 Unit/Ml Insuln.Pen) 0 unit SC ACHS [facility]; Protocol Last Admin: 04/06/20 11:14 Dose: Not Given Documented by: Insulin Lispro Protam/Lispro Human (Insulin Human 75/25 [place]wickpen) 30 unit SC BREAKFAST [facility] Last Admin: 04/06/20 11:09 Dose: 30 u Documented by: Insulin Lispro Protam/Lispro Human (Insulin Human 75/25 [place]) 30 unit SC DINNER [facility] Isosorbide Mononitrate (Isosorbide Mononitrate 30 Mg Tablet) 30 mg PO DAILY [facility] Last Admin: 04/06/20 11:22 Dose: 30 mg Documented by: Metoprolol Tartrate (Metoprolol Tartrate 5 Mg/5 Ml Vial) 5 mg IV Q8H PRN PRN PRN Reason: SBP > 160, hold for HR < 60 Last Admin: 04/05/20 21:05 Dose: 5 mg Documented by: Multivit/Ca Carb/B Cmplx/FA/Prenat (Folic Acid/Vitamin B Comp W-C 1 Capsule) 1 capsule PO DAILY [facility] Last Admin: 04/06/20 11:22 Dose: 1 capsule Documented by: Nystatin (Nystatin Ointment) 1 applic TOPICAL BID [facility]; Protocol Last Admin: 04/06/20 11:22 Dose: 1 applicatio Documented by: Ondansetron HCl (Ondansetron 4 Mg/2 Ml Vial) 4 mg IV Q8H PRN PRN PRN Reason: NAUSEA/VOMITING Last Admin: 04/02/20 00:06 Dose: 4 mg Documented by: Pantoprazole Sodium (Pantoprazole Sodium 40 Mg Tablet) 40 mg PO DAILY [facility] Last Admin: 04/06/20 11:22 Dose: 40 mg Documented by: Polyethylene Glycol (Polyethylene Glycol 3350 17 Gm Packet) 34 gm PO X1 PRN PRN Reason: Bowel Movement Last Admin: 04/04/20 07:35 Dose: 34 gm Documented by: Sodium Chloride (0.9% Saline Lock 10 Ml Syringe) 10 - 40 ml IV UD PRN PRN Reason: SALINE FLUSH Last Admin: 04/05/20 21:05 Dose: 20 ml Documented by: Tamsulosin HCl (Tamsulosin Hcl 0.4 Mg Capsule) 0.4 mg PO DAILY@1730 [facility] Last Admin: 04/05/20 17:35 Dose: 0.4 mg Documented by: STROKE Vital Signs/Narrative: Vital Signs Temp Pulse Resp BP Pulse Ox 04/06/20 11:01 98.4 F 87 16 146/66 H 97 04/06/20 10:37 97.8 F 85 14 148/78 H Medical Necessity - Tobacco Use Smoking Status: Never smoker Assessment/Plan All Active Problems (Last Reviewed 03/29/20 @ 21:[address] Joe Montaño MD) Iron deficiency anemia (Acute) Nephrotic syndrome (Acute) Pneumonia (Acute) Hyperkalemia (Acute) Chronic kidney disease (CKD) (Acute) TIA (transient ischemic attack) (Resolved 09/19/18) Abrasion, left lower leg, initial encounter (Resolved) Contusion of left knee (Resolved) Contusion of lower leg, left (Resolved) Febrile illness (Resolved) History of small bowel obstruction (Resolved) Myocardial infarct (Resolved) Stroke-like symptoms (Resolved) Syncope (Resolved 10/16/18) history of traumatic pneumothorax (Resolved) 1. Hyperkalemia, resolved. Patient was started on hemodialysis. Status post Kayexalate and Miralax Will continue to monitor off losartan 2. ANGELIA on CKD stage IV or ESRD due to DM type II. Previous creatinine of 3.1, admitted creatinine of 4.32. Patient had tunneled dialysis catheter. Had consecutive 3 days of hemodialysis. 980 mL of urine output.. Losartan on hold. Discussed with the dining car hop Dr. Sanford listed possible ESRD. Creatinine clearance estimated 30 cc mils per minute. Possible ESRD. 3. Acute on chronic anemia of CKD, status post 1 unit PRBC transfusion; repeat Hb is 8.3 stable. Stool for occult blood is negative. Status post 1 unit packed RBCs H&H is stable at 8.1 g%. 4. Pneumonia, without hypoxia, slowly improving, urine sodium growth and Legionella antigen negative Continue on Augmentin to complete 10 days; last dose was 04/08/20. 5. type II DM, blood sugar elevated with nephrotic syndrome, diabetic nephropathy. Patient on Lantus insulin and 7525, dose was adjusted. 6. Chronic venostasis with chronic leg ulcers with mild erythema 7. Hypertension, blood pressure high. On hydralazine 75 mg 3 times daily and Imdur 30 mg daily. Continued on carvedilol, amlodipine 8. DVT prophylaxis with heparin SC Inpatient E&M: 26418 Subs Hosp L2
--- NOTE | 2020-04-06 13:35 | CASEMGMT ---
DANITZA spoke with Miranda the insurance verification clerk and she said the [facility] is showing active in her system. She is not sure if they will cover him or not due to the dialysis, that is up to the senior mortgage underwriter. DANITZA then called [facility] customer service and they cannot locate patient's ID number in their system. Sasha FREIRE MSW
[2020-04-06] MEDS: hydrALAZINE 25 MG Tablet 75 MG PO ×2 (14:13→21:52)
--- NOTE | 2020-04-06 14:31 | PCM.TXEXTCAR ---
- Diet 04/02/20 11:50 Diet: Renal - ConsCHO - Gabo Cont Food consistency:: Regular Liquid Consistency:: Regular/Thin Is pt able to select menu?: Yes Diet Comments: No protein restriction d/t HD How many daily calories?: 1999 calorie - Routine Orders/Code Status Suppository Type: Dulcolax 10mg Suppository Frequency: Daily PRN Code Status: DNRCC-A - Wound(s) BLE Wound Type: scattered open areas Dressing Change: Adaptic RIGHT NECK Wound Type: Surgical Incision DIALYSIS CATHETER - RIGHT UPPER CHEST Wound Type: Surgical Incision - Therapies Weight Bearing: Weight bearing as tolerated Physical Therapy: Eval and Treat Occupational Therapy: Eval and Treat Speech Therapy: Eval and Treat - Allergies/Procedures Done in Hospital Allergies/Adverse Reactions: Allergies escitalopram [From Lexapro] Allergy (Verified 03/03/20 14:29) Unknown sertraline [From Zoloft] Allergy (Verified 03/03/20 14:29) Unknown lisinopril Adverse Reaction (Severe, Verified 03/03/20 14:29) Cough - Type of Care/Length of Stay Estimated LOS: Convalescent Care Less Than 30 days Type of Care Needed: Intermediate Rehab Potential: Good Prognosis: Good - Additional Orders/Day of Discharge Day of Discharge: 04/07/20 - Dietary and Speech Recommendations Dietitian Recommendations/Changes: Continue 1999 calorie/Renal general (no protein restriction). - Follow Up Care Primary Care Physician: Gene Miller MD [Primary Care Provider] - Please follow up with your Primary Care Physician in: in 2 weeks Please Follow Up With: Kandis Sanford DO When: in 2-3 weeks
--- NOTE | 2020-04-06 15:08 | CASEMGMT ---
DANITZA faxed all necessary information to [facility] to obtain a level of care. Plan: SUSAN FREIRE MSW
[2020-04-06] MEDS: Amox/Clavulanate 500 MG Tablet PO (17:03)
[2020-04-06] MEDS: Tamsulosin HCl 0.4 MG Capsule PO (17:03)
[2020-04-06 17:15] LABS: Bedside Glucose 344 mg/dL (70-110)
[2020-04-06] MEDS: GUANFACINE HCL 1 MG TAB.ER.24H PO (21:52)
[2020-04-06 22:10] LABS: Bedside Glucose 316 mg/dL (70-110)
[2020-04-07] VITALS (13 sets, daily range): BP systolic 137–180; BP diastolic 66–76; PULSE 80–91; RESP 14–18; TEMP 36.5–37; O2SAT 95–100
[2020-04-07 02:46] LABS: Bedside Glucose 180 mg/dL (70-110)
[2020-04-07] MEDS: Heparin Injection (Vial) 5,000 UNIT/ML VIAL 5000 UNIT SC ×3 (05:44→20:44)
[2020-04-07] MEDS: hydrALAZINE 25 MG Tablet 75 MG PO ×3 (05:45→20:44)
[2020-04-07 07:46] LABS: Albumin, Serum 2.2 g/dL (3.2-5.0); BUN 63 mg/dL (7-18); BUN/Creat Ratio 17.5 RATIO (10-20); Chloride 101 mmol/L (98-107); EST Glomerular Filtration Rate 18 mL/min (>60); Est Glom Filt Rate - Afr Amer 22 mL/min (>60); Estimated Creatinine Clearance 20.73 ml/min; Glucose 152 mg/dL (74-106); Phosphorus 4.3 mg/dL (2.5-4.9); Potassium 3.7 mmol/L (3.5-5.1); Sodium Level 136 mmol/L (136-145)
[2020-04-07 08:15] LABS: Bedside Glucose 146 mg/dL (70-110)
[2020-04-07] MEDS: Insulin Human 75/25 Kwickpen 30 UNIT SC ×3 (08:46→17:25)
[2020-04-07] MEDS: Isosorbide Mononitrate 30 MG Tablet PO (08:50)
[2020-04-07] MEDS: Folic Acid/Vitamin B Comp W-C 1 Capsule 1 CAP PO (08:50)
[2020-04-07] MEDS: Aspirin E.C. 81 MG Tablet PO (08:51)
[2020-04-07] MEDS: amLODIPine 10 MG Tablet PO (08:51)
[2020-04-07] MEDS: Pantoprazole Sodium 40 MG Tablet PO (08:51)
[2020-04-07] MEDS: Cyanocobalamin 500 MCG Tablet 1000 MCG PO (08:51)
[2020-04-07] MEDS: Furosemide 80 MG Tablet PO ×2 (08:51→17:49)
--- NOTE | 2020-04-07 09:00 | PCM.PN.REN ---
Patient Problems: Active and Suspected Problems (Last Reviewed 03/29/20 @ 21:[address] Joe Montaño MD) Nephrotic syndrome (Acute) Pneumonia (Acute) Hyperkalemia (Acute) Chronic kidney disease (CKD) (Acute) Subjective: UF 2.5L fluid on dialysis yesterday. Urine output incomplete. Creatinine level increased which is to be expected. Repeat 24h urine. Still with anasarca . - Physical Exam Vitals/I&O's: Vital Signs Temp Pulse Resp BP Pulse Ox 98.6 F 91 18 154/69 H 97 04/07/20 08:20 04/07/20 08:20 04/07/20 08:20 04/07/20 08:20 04/07/20 08:20 Oxygen Delivery Method Room Air Weight: 120.4 kg Body Mass Index (BMI) 41.5 Finger Stick Blood Glucose 76 Intake and Output for Last 24 Hours 04/05/20 04/06/20 04/07/20 23:59 23:59 23:59 Intake Total 1220 / 1220 480 / 480 Output Total 2305 / 2305 500 / 700 600 / 600 Balance -1085 / -1085 -20 / -220 -600 / -600 General: Alert, Oriented x3, Cooperative, No apparent distress Lungs: Clear to auscultation Abdomen: Soft, Non Tender, Non-Distended, Obese Extremities: Edema - anasarca Laboratory Results 04/06/20 11:07: POC Glucose 361 H 04/06/20 16:56: POC Glucose 344 H 04/06/20 22:00: POC Glucose 316 H 04/07/20 02:27: POC Glucose 180 H 04/07/20 06:05: Sodium 136, Potassium 3.7, Chloride 101, Carbon Dioxide 27.0, BUN 63 H, Creatinine 3.60 H, Estim Creat Clear Calc 20.73, Est GFR (MDRD) Af Amer 22 L, Est GFR (MDRD) Non-Af 18 L, BUN/Creatinine Ratio 17.5, Glucose 152 H, Calcium 8.0 L, Phosphorus 4.3, Albumin 2.2 L 04/07/20 08:07: POC Glucose 146 H Current Medications Acetaminophen (Acetaminophen 325 Mg Tablet) 650 mg PO Q6H PRN PRN PRN Reason: Pain Score 1-10/Temp > 100.7 F Last Admin: 04/02/20 10:47 Dose: 650 mg Documented by: Albuterol Sulfate (Albuterol 2.5 Mg/3 Ml Vial.Neb.) 2.5 mg INHALATION Q4H PRN PRN PRN Reason: SOB/WHEEZING Last Admin: 03/30/20 19:13 Dose: 2.5 mg Documented by: Amlodipine Besylate (Amlodipine 10 Mg Tablet) 10 mg PO DAILY [facility] Last Admin: 04/07/20 08:51 Dose: 10 mg Documented by: Amoxicillin/Clavulanate Potassium (Amox/Clavulanate 500 Mg Tablet) 500 mg PO DAILY@1700 [facility] Stop: 04/08/20 23:59 Last Admin: 04/06/20 17:03 Dose: 500 mg Documented by: Aspirin (Aspirin E.C. 81 Mg Tablet) 81 mg PO DAILY [facility] Last Admin: 04/07/20 08:51 Dose: 81 mg Documented by: Bisacodyl (Bisacodyl 10 Mg Suppository) 10 mg RECTAL DAILY PRN PRN Reason: Constipation Carvedilol (Carvedilol 25 Mg Tablet) 25 mg PO BID [facility] Last Admin: 03/30/20 11:45 Dose: 25 mg Documented by: Cyanocobalamin (Cyanocobalamin 500 Mcg Tablet) 1,000 mcg PO DAILY [facility] Last Admin: 04/07/20 08:51 Dose: 1,000 mcg Documented by: Dextrose (Dextrose 50%-Water 25 Gm/50 Ml Disp.Syrin) 0 gm IV X1 PRN; Protocol PRN Reason: Hypoglycemia Ergocalciferol (Ergocalciferol 50,000 Unit Capsule) 50,000 unit PO QWEEK [facility] Last Admin: 04/05/20 10:25 Dose: 50,000 unit Documented by: Furosemide (Furosemide 80 Mg Tablet) 80 mg PO BID@1000,1800 [facility] Last Admin: 04/07/20 08:51 Dose: 80 mg Documented by: Glucagon (Glucagon 1 Mg/Ml Syringe) 1 mg IM .X1 PRN PRN Reason: Hypoglycemia Guanfacine HCl (Guanfacine Hcl 1 Mg Tab.Er.24h) 1 mg PO DAILY@2200 [facility] Last Admin: 04/06/20 21:52 Dose: 1 mg Documented by: Heparin Sodium (Porcine) (Heparin Injection (Vial) 5,000 Unit/Ml Vial) 5,000 unit SC Q8 [facility] Last Admin: 04/07/20 05:44 Dose: 5,000 unit Documented by: Hydralazine HCl (Hydralazine 25 Mg Tablet) 75 mg PO TID [facility] Last Admin: 04/07/20 05:45 Dose: 75 mg Documented by: Hydralazine HCl (Hydralazine 20 Mg/Ml Vial) 10 mg IV Q4H PRN PRN PRN Reason: SBP > 160 Sodium Chloride () 500 mls @ 15 mls/hr IV PRN PRN PRN Reason: Blood Transfusion Last Infusion: 04/04/20 21:58 Dose: Infused Documented by: Sodium Chloride () 250 mls @ 15 mls/hr IV .[id number] PRN PRN Reason: Saline Flush Sodium Chloride () 250 mls @ 15 mls/hr IV .[id number] PRN PRN Reason: Additional IVPB Infusion Insulin Glargine (Insulin Glargine 100 Units/Ml Pen) 40 units SC DAILY [facility] Last Admin: 04/07/20 08:48 Dose: 40 u Documented by: Insulin Human Lispro (Insulin Lispro 100 Unit/Ml Insuln.Pen) 0 unit SC ACHS [facility]; Protocol Last Admin: 04/07/20 08:51 Dose: Not Given Documented by: Insulin Lispro Protam/Lispro Human (Insulin Human 75/25 [place]) 30 unit SC BREAKFAST [facility] Last Admin: 04/07/20 08:46 Dose: 30 u Documented by: Insulin Lispro Protam/Lispro Human (Insulin Human 75/25 [place]) 30 unit SC DINNER [facility] Last Admin: 04/06/20 16:59 Dose: 30 u Documented by: Isosorbide Mononitrate (Isosorbide Mononitrate 30 Mg Tablet) 30 mg PO DAILY [facility] Last Admin: 04/07/20 08:50 Dose: 30 mg Documented by: Metoprolol Tartrate (Metoprolol Tartrate 5 Mg/5 Ml Vial) 5 mg IV Q8H PRN PRN PRN Reason: SBP > 160, hold for HR < 60 Last Admin: 04/05/20 21:05 Dose: 5 mg Documented by: Multivit/Ca Carb/B Cmplx/FA/Prenat (Folic Acid/Vitamin B Comp W-C 1 Capsule) 1 capsule PO DAILY [facility] Last Admin: 04/07/20 08:50 Dose: 1 capsule Documented by: Nystatin (Nystatin Ointment) 1 applic TOPICAL BID [facility]; Protocol Last Admin: 04/07/20 08:51 Dose: Not Given Documented by: Ondansetron HCl (Ondansetron 4 Mg/2 Ml Vial) 4 mg IV Q8H PRN PRN PRN Reason: NAUSEA/VOMITING Last Admin: 04/02/20 00:06 Dose: 4 mg Documented by: Pantoprazole Sodium (Pantoprazole Sodium 40 Mg Tablet) 40 mg PO DAILY [facility] Last Admin: 04/07/20 08:51 Dose: 40 mg Documented by: Polyethylene Glycol (Polyethylene Glycol 3350 17 Gm Packet) 34 gm PO X1 PRN PRN Reason: Bowel Movement Last Admin: 04/04/20 07:35 Dose: 34 gm Documented by: Sodium Chloride (0.9% Saline Lock 10 Ml Syringe) 10 - 40 ml IV UD PRN PRN Reason: SALINE FLUSH Last Admin: 04/05/20 21:05 Dose: 20 ml Documented by: Tamsulosin HCl (Tamsulosin Hcl 0.4 Mg Capsule) 0.4 mg PO DAILY@1730 [facility] Last Admin: 04/06/20 17:03 Dose: 0.4 mg Documented by: Medical Necessity - Tobacco Use Smoking Status: Never smoker Assessment/Plan All Active Problems (Last Reviewed 03/29/20 @ 21:[address] Joe Montaño MD) Iron deficiency anemia (Acute) Nephrotic syndrome (Acute) Pneumonia (Acute) Hyperkalemia (Acute) Chronic kidney disease (CKD) (Acute) TIA (transient ischemic attack) (Resolved 09/19/18) Abrasion, left lower leg, initial encounter (Resolved) Contusion of left knee (Resolved) Contusion of lower leg, left (Resolved) Febrile illness (Resolved) History of small bowel obstruction (Resolved) Myocardial infarct (Resolved) Stroke-like symptoms (Resolved) Syncope (Resolved 10/16/18) history of traumatic pneumothorax (Resolved) 1. Acute on CKD 4 vs ESRD due to diabetes. Repeat 24h urine, creatinine increased to 3.6 . UF only yesterday for 2.5L for anasarca. Inaccurate I/O's. 2. Hyperkalemia resolved 3. Iron def anemia iv iron load, s/p prbc 4. DM2 with nephrotic syndrome, continue oral lasix 80mg bid. 5. HTN stable 6. Anasarca due to nephrotic proteinuria. Urine CLAUDIA no monoclonal antibody
--- NOTE | 2020-04-07 12:09 | PN_ITS ---
Patient Problems: Active and Suspected Problems (Last Reviewed 03/29/20 @ 21:[address] Joe Montaño MD) Nephrotic syndrome (Acute) Pneumonia (Acute) Hyperkalemia (Acute) Chronic kidney disease (CKD) (Acute) Reason for Visit: Follow-up for anasarca. Patient on hemodialysis. No shortness of breath. No fever. Pulse ox 97% on room air Physical exam General: Alert, Oriented x3, Cooperative HEENT: Atraumatic, PERRLA, EOMI, Normocephalic Oral: No Gingival or Mucosal Lesions/ Ulcerations Neck: Supple, No JVD, Negative Carotid Bruits Lungs: Air entry diminished in bilateral lung bases. No crepitation/rhonchi Cardiovascular: Regular rate, Regular Rhythm, Normal S1, Normal S2, No murmurs Abdomen: Bowel Sounds Present, Soft, Non Tender, Non-Distended. Possible mild ascites : No renal angle tenderness. No suprapubic tenderness. Extremities: Bilateral lower extremity edema 3+ up to thigh level. Abdominal wall subcutaneous edema. Capillary Refill Less than 3 Seconds Skin: No rashes, No breakdown Musculoskeletal: No Tenderness to Palpation of Joints or Extremities Neurological: Cranial nerves II-XII grossly intact, Deep Tendon Reflexes 2+/4 and Symmetrical, Neuro grossly intact Psych/Mental Status: Normal Affect, Appropriate. Vitals/I&O's: Vital Signs Temp Pulse Resp BP Pulse Ox 98.6 F 91 18 154/69 H 97 04/07/20 08:20 04/07/20 08:20 04/07/20 08:20 04/07/20 08:20 04/07/20 08:20 Oxygen Delivery Method Room Air Weight: 265 lb 6.985 oz Body Mass Index (BMI) 41.5 Finger Stick Blood Glucose 76 Intake and Output for Last 24 Hours 04/05/20 04/06/20 04/07/20 23:59 23:59 23:59 Intake Total 1220 / 1220 480 / 480 Output Total 2305 / 2305 500 / 700 600 / 600 Balance -1085 / -1085 -20 / -220 -600 / -600 Laboratory Results 04/06/20 16:56: POC Glucose 344 H 04/06/20 22:00: POC Glucose 316 H 04/07/20 02:27: POC Glucose 180 H 04/07/20 06:05: Sodium 136, Potassium 3.7, Chloride 101, Carbon Dioxide 27.0, BUN 63 H, Creatinine 3.60 H, Estim Creat Clear Calc 20.73, Est GFR (MDRD) Af Amer 22 L, Est GFR (MDRD) Non-Af 18 L, BUN/Creatinine Ratio 17.5, Glucose 152 H, Calcium 8.0 L, Phosphorus 4.3, Albumin 2.2 L 04/07/20 08:07: POC Glucose 146 H Current Medications Acetaminophen (Acetaminophen 325 Mg Tablet) 650 mg PO Q6H PRN PRN PRN Reason: Pain Score 1-10/Temp > 100.7 F Last Admin: 04/02/20 10:47 Dose: 650 mg Documented by: Albuterol Sulfate (Albuterol 2.5 Mg/3 Ml Vial.Neb.) 2.5 mg INHALATION Q4H PRN PRN PRN Reason: SOB/WHEEZING Last Admin: 03/30/20 19:13 Dose: 2.5 mg Documented by: Amlodipine Besylate (Amlodipine 10 Mg Tablet) 10 mg PO DAILY [facility] Last Admin: 04/07/20 08:51 Dose: 10 mg Documented by: Amoxicillin/Clavulanate Potassium (Amox/Clavulanate 500 Mg Tablet) 500 mg PO DAILY@1700 [facility] Stop: 04/08/20 23:59 Last Admin: 04/06/20 17:03 Dose: 500 mg Documented by: Aspirin (Aspirin E.C. 81 Mg Tablet) 81 mg PO DAILY [facility] Last Admin: 04/07/20 08:51 Dose: 81 mg Documented by: Bisacodyl (Bisacodyl 10 Mg Suppository) 10 mg RECTAL DAILY PRN PRN Reason: Constipation Carvedilol (Carvedilol 25 Mg Tablet) 25 mg PO BID [facility] Last Admin: 03/30/20 11:45 Dose: 25 mg Documented by: Cyanocobalamin (Cyanocobalamin 500 Mcg Tablet) 1,000 mcg PO DAILY [facility] Last Admin: 04/07/20 08:51 Dose: 1,000 mcg Documented by: Dextrose (Dextrose 50%-Water 25 Gm/50 Ml Disp.Syrin) 0 gm IV X1 PRN; Protocol PRN Reason: Hypoglycemia Ergocalciferol (Ergocalciferol 50,000 Unit Capsule) 50,000 unit PO QWEEK [facility] Last Admin: 04/05/20 10:25 Dose: 50,000 unit Documented by: Furosemide (Furosemide 80 Mg Tablet) 80 mg PO BID@1000,1800 [facility] Last Admin: 04/07/20 08:51 Dose: 80 mg Documented by: Glucagon (Glucagon 1 Mg/Ml Syringe) 1 mg IM .X1 PRN PRN Reason: Hypoglycemia Guanfacine HCl (Guanfacine Hcl 1 Mg Tab.Er.24h) 1 mg PO DAILY@2200 [facility] Last Admin: 04/06/20 21:52 Dose: 1 mg Documented by: Heparin Sodium (Porcine) (Heparin Injection (Vial) 5,000 Unit/Ml Vial) 5,000 unit SC Q8 [facility] Last Admin: 04/07/20 05:44 Dose: 5,000 unit Documented by: Hydralazine HCl (Hydralazine 25 Mg Tablet) 75 mg PO TID [facility] Last Admin: 04/07/20 05:45 Dose: 75 mg Documented by: Hydralazine HCl (Hydralazine 20 Mg/Ml Vial) 10 mg IV Q4H PRN PRN PRN Reason: SBP > 160 Sodium Chloride () 500 mls @ 15 mls/hr IV PRN PRN PRN Reason: Blood Transfusion Last Infusion: 04/04/20 21:58 Dose: Infused Documented by: Sodium Chloride () 250 mls @ 15 mls/hr IV .[id number] PRN PRN Reason: Saline Flush Sodium Chloride () 250 mls @ 15 mls/hr IV .[id number] PRN PRN Reason: Additional IVPB Infusion Insulin Glargine (Insulin Glargine 100 Units/Ml Pen) 40 units SC DAILY [facility] Last Admin: 04/07/20 08:48 Dose: 40 u Documented by: Insulin Human Lispro (Insulin Lispro 100 Unit/Ml Insuln.Pen) 0 unit SC ACHS [facility]; Protocol Last Admin: 04/07/20 08:51 Dose: Not Given Documented by: Insulin Lispro Protam/Lispro Human (Insulin Human 75/25 [place]) 30 unit SC BREAKFAST [facility] Last Admin: 04/07/20 08:46 Dose: 30 u Documented by: Insulin Lispro Protam/Lispro Human (Insulin Human 75/25 [place]wickpen) 30 unit SC DINNER [facility] Last Admin: 04/06/20 16:59 Dose: 30 u Documented by: Isosorbide Mononitrate (Isosorbide Mononitrate 30 Mg Tablet) 30 mg PO DAILY [facility] Last Admin: 04/07/20 08:50 Dose: 30 mg Documented by: Metoprolol Tartrate (Metoprolol Tartrate 5 Mg/5 Ml Vial) 5 mg IV Q8H PRN PRN PRN Reason: SBP > 160, hold for HR < 60 Last Admin: 04/05/20 21:05 Dose: 5 mg Documented by: Multivit/Ca Carb/B Cmplx/FA/Prenat (Folic Acid/Vitamin B Comp W-C 1 Capsule) 1 capsule PO DAILY [facility] Last Admin: 04/07/20 08:50 Dose: 1 capsule Documented by: Nystatin (Nystatin Ointment) 1 applic TOPICAL BID [facility]; Protocol Last Admin: 04/07/20 08:51 Dose: Not Given Documented by: Ondansetron HCl (Ondansetron 4 Mg/2 Ml Vial) 4 mg IV Q8H PRN PRN PRN Reason: NAUSEA/VOMITING Last Admin: 04/02/20 00:06 Dose: 4 mg Documented by: Pantoprazole Sodium (Pantoprazole Sodium 40 Mg Tablet) 40 mg PO DAILY [facility] Last Admin: 04/07/20 08:51 Dose: 40 mg Documented by: Polyethylene Glycol (Polyethylene Glycol 3350 17 Gm Packet) 34 gm PO X1 PRN PRN Reason: Bowel Movement Last Admin: 04/04/20 07:35 Dose: 34 gm Documented by: Sodium Chloride (0.9% Saline Lock 10 Ml Syringe) 10 - 40 ml IV UD PRN PRN Reason: SALINE FLUSH Last Admin: 04/05/20 21:05 Dose: 20 ml Documented by: Tamsulosin HCl (Tamsulosin Hcl 0.4 Mg Capsule) 0.4 mg PO DAILY@1730 [facility] Last Admin: 04/06/20 17:03 Dose: 0.4 mg Documented by: STROKE Vital Signs/Narrative: Vital Signs Temp Pulse Resp BP Pulse Ox 04/07/20 08:20 98.6 F 91 18 154/69 H 97 Medical Necessity - Tobacco Use Smoking Status: Never smoker Assessment/Plan All Active Problems (Last Reviewed 03/29/20 @ 21:[address] Joe Montaño MD) Iron deficiency anemia (Acute) Nephrotic syndrome (Acute) Pneumonia (Acute) Hyperkalemia (Acute) Chronic kidney disease (CKD) (Acute) TIA (transient ischemic attack) (Resolved 09/19/18) Abrasion, left lower leg, initial encounter (Resolved) Contusion of left knee (Resolved) Contusion of lower leg, left (Resolved) Febrile illness (Resolved) History of small bowel obstruction (Resolved) Myocardial infarct (Resolved) Stroke-like symptoms (Resolved) Syncope (Resolved 10/16/18) history of traumatic pneumothorax (Resolved) 1. Hyperkalemia, resolved. Patient was started on hemodialysis. Status post Kayexalate and Miralax Will continue to monitor off losartan 2. ANGELIA on CKD stage IV or ESRD due to DM type II. Previous creatinine of 3.1, admitted creatinine of 4.32. Patient had tunneled dialysis catheter. Had consecutive 3 days of hemodialysis. 980 mL of urine output.. Losartan on hold. Discussed with the examination scorer Dr. Sanford listed possible ESRD. Creatinine clearance estimated 30 cc mils per minute. Possible ESRD. 04/07: Dr. Sanford ordered 24-hour creatinine clearance to estimate GFR. Follow-up renal profile for a while. Patient does not have insurance therefore case assembler working on transition of inpatient hemodialysis to outpatient. 3. Acute on chronic anemia of CKD, status post 1 unit PRBC transfusion; repeat Hb is 8.3 stable. Stool for occult blood is negative. Status post 1 unit packed RBCs H&H is stable at 8.1 g%. 4. Pneumonia, without hypoxia, slowly improving, urine sodium growth and Legionella antigen negative Continue on Augmentin to complete 10 days; last dose was 04/08/20. 5. type II DM, blood sugar elevated with nephrotic syndrome, diabetic nephropathy. Patient on Lantus insulin and 7525, dose was adjusted. 6. Chronic venostasis with chronic leg ulcers with mild erythema 7. Hypertension, blood pressure high. On hydralazine 75 mg 3 times daily and Imdur 30 mg daily. Continued on carvedilol, amlodipine 8. DVT prophylaxis with heparin SC Laboratory Results 04/06/20 16:56: POC Glucose 344 H 04/06/20 22:00: POC Glucose 316 H 04/07/20 02:27: POC Glucose 180 H 04/07/20 06:05: Sodium 136, Potassium 3.7, Chloride 101, Carbon Dioxide 27.0, BUN 63 H, Creatinine 3.60 H, Estim Creat Clear Calc 20.73, Est GFR (MDRD) Af Amer 22 L, Est GFR (MDRD) Non-Af 18 L, BUN/Creatinine Ratio 17.5, Glucose 152 H, Calcium 8.0 L, Phosphorus 4.3, Albumin 2.2 L 04/07/20 08:07: POC Glucose 146 H Inpatient E&M: 32032 Subs Hosp L2
[2020-04-07] MEDS: Insulin Lispro 100 UNIT/ML INSULN.PEN SC ×3 (12:22→20:45)
[2020-04-07 12:31] LABS: Bedside Glucose 242 mg/dL (70-110)
--- NOTE | 2020-04-07 12:33 | CASEMGMT ---
SW left a message with [facility] admissions letting them know patient is not coming today. Sasha FREIRE MSW
--- NOTE | 2020-04-07 13:19 | CASEMGMT ---
Addendum entered by Sasha Olivas 04/07/20 14:26: [facility] pre-cert notified SW that patient's short term policy he recently obtained will not cover any of this hospitalization as he was hospitalized before his insurance actually took effect. Therefore pre-existing condition. Sasha DRIVER Original Note: After some research DANITZA found a number to call for [employer] short term plans. DANITZA spoke with a business representative and she verified patient's short term plan is active as of 04-01-2020. She said when looking it up it should be looked up under [employer] not [employer]. She said patient will not know if his dialysis and hospital stay will be covered until information is submitted. She did say short term policies do have restrictions on pre-existing conditions so it is a good possibility he will not be covered. He has a deductible of $7,500 and once that is met covered services will be covered at 100%. Inpatient hospital stays do not require pre-cert. He does not have to get a pre-cert to go to a shelter he just needs to be in the hospital for 3 midnights and go to the shelter within 14 days of d/c from the hospital. DANITZA called [facility] Customer services and told them about [employer] not [employer]. Information was passed along to pre-cert. Sasha DRIVER
[2020-04-07] MEDS: Amox/Clavulanate 500 MG Tablet PO (17:26)
[2020-04-07] MEDS: Tamsulosin HCl 0.4 MG Capsule PO (17:26)
[2020-04-07 17:35] LABS: Bedside Glucose 233 mg/dL (70-110)
[2020-04-07] MEDS: GUANFACINE HCL 1 MG TAB.ER.24H PO (20:44)
[2020-04-07 21:56] LABS: Bedside Glucose 202 mg/dL (70-110)
[2020-04-08] VITALS (10 sets, daily range): BP systolic 135–170; BP diastolic 62–78; PULSE 79–95; RESP 17–18; TEMP 36.4–37.1; O2SAT 94–97
[2020-04-08] MEDS: Heparin Injection (Vial) 5,000 UNIT/ML VIAL 5000 UNIT SC ×3 (05:18→21:05)
[2020-04-08] MEDS: hydrALAZINE 25 MG Tablet 75 MG PO ×2 (05:18→14:20)
[2020-04-08] MEDS: Acetaminophen 325 MG Tablet 650 MG PO ×2 (05:22→11:37)
[2020-04-08] MEDS: Insulin Lispro 100 UNIT/ML INSULN.PEN SC ×4 (06:37→21:06)
[2020-04-08 06:40] LABS: Bedside Glucose 175 mg/dL (70-110)
[2020-04-08 06:57] LABS: Albumin, Serum 2.4 g/dL (3.2-5.0); BUN 70 mg/dL (7-18); Calcium,Total 8.3 mg/dL (8.5-10.1); Chloride 103 mmol/L (98-107); Creatinine, Serum 3.68 mg/dL (0.70-1.30); EST Glomerular Filtration Rate 18 mL/min (>60); Est Glom Filt Rate - Afr Amer 22 mL/min (>60); Estimated Creatinine Clearance 20.28 ml/min; Glucose 167 mg/dL (74-106); Phosphorus 4.6 mg/dL (2.5-4.9); Sodium Level 136 mmol/L (136-145)
--- NOTE | 2020-04-08 09:26 | CASEMGMT ---
Per Herb at [facility], pt is set up for TTS [id number] chair time at this time. Caitlyn BOSCH aware, voices understanding. Scott LAY CM
[2020-04-08] MEDS: Cyanocobalamin 500 MCG Tablet 1000 MCG PO (10:24)
[2020-04-08] MEDS: Pantoprazole Sodium 40 MG Tablet PO (10:24)
[2020-04-08] MEDS: amLODIPine 10 MG Tablet PO (10:25)
[2020-04-08] MEDS: Furosemide 80 MG Tablet PO ×2 (10:25→17:07)
[2020-04-08] MEDS: Aspirin E.C. 81 MG Tablet PO (10:25)
[2020-04-08] MEDS: Folic Acid/Vitamin B Comp W-C 1 Capsule 1 CAP PO (10:25)
[2020-04-08] MEDS: Isosorbide Mononitrate 30 MG Tablet PO (10:25)
--- NOTE | 2020-04-08 11:30 | NURSING ---
Per Mary, dialysis.
--- NOTE | 2020-04-08 14:10 | PCM.PN.REN ---
Patient Problems: Active and Suspected Problems (Last Reviewed 03/29/20 @ 21:[address] Joe Montaño MD) Nephrotic syndrome (Acute) Pneumonia (Acute) Hyperkalemia (Acute) Chronic kidney disease (CKD) (Acute) Subjective: denies shortness of breath, appetite good - Physical Exam Vitals/I&O's: Vital Signs Temp Pulse Resp BP Pulse Ox 97.5 F L 85 18 135/66 H 96 04/08/20 10:12 04/08/20 10:12 04/08/20 10:12 04/08/20 10:12 04/08/20 10:12 Oxygen Delivery Method Room Air Weight: 120.7 kg Body Mass Index (BMI) 41.5 Finger Stick Blood Glucose 76 Intake and Output for Last 24 Hours 04/06/20 04/07/20 04/08/20 23:59 23:59 23:59 Intake Total 480 / 480 480 / 820 820 / 820 Output Total 3000 / 3200 825 / 1375 1974 / 1974 Balance -2520 / -2720 -345 / -555 -1155 / -1155 General: Alert, Oriented x3, Cooperative, No apparent distress Extremities: Edema - anasarca Skin: No rashes Psych/Mental Status: Normal Affect, Appropriate, Alert and oriented to time, place, person, mood and affect Laboratory Results 04/07/20 17:22: POC Glucose 233 H 04/07/20 20:38: POC Glucose 202 H 04/08/20 05:46: Sodium 136, Potassium 4.0, Chloride 103, Carbon Dioxide 26.0, BUN 70 H, Creatinine 3.68 H, Estim Creat Clear Calc 20.28, Est GFR (MDRD) Af Amer 22 L, Est GFR (MDRD) Non-Af 18 L, BUN/Creatinine Ratio 19.0, Glucose 167 H, Calcium 8.3 L, Phosphorus 4.6, Albumin 2.4 L 04/08/20 06:36: POC Glucose 175 H Current Medications Acetaminophen (Acetaminophen 325 Mg Tablet) 650 mg PO Q6H PRN PRN PRN Reason: Pain Score 1-10/Temp > 100.7 F Last Admin: 04/08/20 11:37 Dose: 650 mg Documented by: Albuterol Sulfate (Albuterol 2.5 Mg/3 Ml Vial.Neb.) 2.5 mg INHALATION Q4H PRN PRN PRN Reason: SOB/WHEEZING Last Admin: 03/30/20 19:13 Dose: 2.5 mg Documented by: Amlodipine Besylate (Amlodipine 10 Mg Tablet) 10 mg PO DAILY [facility] Last Admin: 04/08/20 10:25 Dose: 10 mg Documented by: Amoxicillin/Clavulanate Potassium (Amox/Clavulanate 500 Mg Tablet) 500 mg PO DAILY@1700 [facility] Stop: 04/08/20 23:59 Last Admin: 04/07/20 17:26 Dose: 500 mg Documented by: Aspirin (Aspirin E.C. 81 Mg Tablet) 81 mg PO DAILY [facility] Last Admin: 04/08/20 10:25 Dose: 81 mg Documented by: Bisacodyl (Bisacodyl 10 Mg Suppository) 10 mg RECTAL DAILY PRN PRN Reason: Constipation Carvedilol (Carvedilol 25 Mg Tablet) 25 mg PO BID [facility] Last Admin: 03/30/20 11:45 Dose: 25 mg Documented by: Cyanocobalamin (Cyanocobalamin 500 Mcg Tablet) 1,000 mcg PO DAILY [facility] Last Admin: 04/08/20 10:24 Dose: 1,000 mcg Documented by: Dextrose (Dextrose 50%-Water 25 Gm/50 Ml Disp.Syrin) 0 gm IV X1 PRN; Protocol PRN Reason: Hypoglycemia Ergocalciferol (Ergocalciferol 50,000 Unit Capsule) 50,000 unit PO QWEEK [facility] Last Admin: 04/05/20 10:25 Dose: 50,000 unit Documented by: Furosemide (Furosemide 80 Mg Tablet) 80 mg PO BID@1000,1800 [facility] Last Admin: 04/08/20 10:25 Dose: 80 mg Documented by: Glucagon (Glucagon 1 Mg/Ml Syringe) 1 mg IM .X1 PRN PRN Reason: Hypoglycemia Guanfacine HCl (Guanfacine Hcl 1 Mg Tab.Er.24h) 1 mg PO DAILY@2200 [facility] Last Admin: 04/07/20 20:44 Dose: 1 mg Documented by: Heparin Sodium (Porcine) (Heparin Injection (Vial) 5,000 Unit/Ml Vial) 5,000 unit SC Q8 [facility] Last Admin: 04/08/20 05:18 Dose: 5,000 unit Documented by: Hydralazine HCl (Hydralazine 25 Mg Tablet) 75 mg PO TID [facility] Last Admin: 04/08/20 05:18 Dose: 75 mg Documented by: Hydralazine HCl (Hydralazine 20 Mg/Ml Vial) 10 mg IV Q4H PRN PRN PRN Reason: SBP > 160 Sodium Chloride () 500 mls @ 15 mls/hr IV PRN PRN PRN Reason: Blood Transfusion Last Infusion: 04/04/20 21:58 Dose: Infused Documented by: Sodium Chloride () 250 mls @ 15 mls/hr IV .[id number] PRN PRN Reason: Saline Flush Sodium Chloride () 250 mls @ 15 mls/hr IV .[id number] PRN PRN Reason: Additional IVPB Infusion Insulin Glargine (Insulin Glargine 100 Units/Ml Pen) 40 units SC DAILY [facility] Last Admin: 04/08/20 10:26 Dose: 40 u Documented by: Insulin Human Lispro (Insulin Lispro 100 Unit/Ml Insuln.Pen) 0 unit SC ACHS [facility]; Protocol Last Admin: 04/08/20 11:36 Dose: 9 units Documented by: Insulin Lispro Protam/Lispro Human (Insulin Human 75/25 Kwickpen) 30 unit SC BREAKFAST [facility] Last Admin: 04/07/20 17:24 Dose: 30 u Documented by: Insulin Lispro Protam/Lispro Human (Insulin Human 75/25 Kwickpen) 30 unit SC DINNER [facility] Last Admin: 04/07/20 17:25 Dose: 30 u Documented by: Isosorbide Mononitrate (Isosorbide Mononitrate 30 Mg Tablet) 30 mg PO DAILY [facility] Last Admin: 04/08/20 10:25 Dose: 30 mg Documented by: Metoprolol Tartrate (Metoprolol Tartrate 5 Mg/5 Ml Vial) 5 mg IV Q8H PRN PRN PRN Reason: SBP > 160, hold for HR < 60 Last Admin: 04/05/20 21:05 Dose: 5 mg Documented by: Multivit/Ca Carb/B Cmplx/FA/Prenat (Folic Acid/Vitamin B Comp W-C 1 Capsule) 1 capsule PO DAILY [facility] Last Admin: 04/08/20 10:25 Dose: 1 capsule Documented by: Nystatin (Nystatin Ointment) 1 applic TOPICAL BID [facility]; Protocol Last Admin: 04/08/20 10:27 Dose: Not Given Documented by: Ondansetron HCl (Ondansetron 4 Mg/2 Ml Vial) 4 mg IV Q8H PRN PRN PRN Reason: NAUSEA/VOMITING Last Admin: 04/02/20 00:06 Dose: 4 mg Documented by: Pantoprazole Sodium (Pantoprazole Sodium 40 Mg Tablet) 40 mg PO DAILY [facility] Last Admin: 04/08/20 10:24 Dose: 40 mg Documented by: Polyethylene Glycol (Polyethylene Glycol 3350 17 Gm Packet) 34 gm PO X1 PRN PRN Reason: Bowel Movement Last Admin: 04/04/20 07:35 Dose: 34 gm Documented by: Sodium Chloride (0.9% Saline Lock 10 Ml Syringe) 10 - 40 ml IV UD PRN PRN Reason: SALINE FLUSH Last Admin: 04/05/20 21:05 Dose: 20 ml Documented by: Tamsulosin HCl (Tamsulosin Hcl 0.4 Mg Capsule) 0.4 mg PO DAILY@1730 [facility] Last Admin: 04/07/20 17:26 Dose: 0.4 mg Documented by: Medical Necessity - Tobacco Use Smoking Status: Never smoker Assessment/Plan All Active Problems (Last Reviewed 03/29/20 @ 21:[address] Joe Montaño MD) Iron deficiency anemia (Acute) Nephrotic syndrome (Acute) Pneumonia (Acute) Hyperkalemia (Acute) Chronic kidney disease (CKD) (Acute) TIA (transient ischemic attack) (Resolved 09/19/18) Abrasion, left lower leg, initial encounter (Resolved) Contusion of left knee (Resolved) Contusion of lower leg, left (Resolved) Febrile illness (Resolved) History of small bowel obstruction (Resolved) Myocardial infarct (Resolved) Stroke-like symptoms (Resolved) Syncope (Resolved 10/16/18) history of traumatic pneumothorax (Resolved) 1. Acute on CKD 4 vs ESRD due to diabetes. Repeat 24h urine, creatinine increased to 3.7. Hold dialysis today. 2. Hyperkalemia resolved 3. Iron def anemia iv iron load, s/p prbc 4. DM2 with nephrotic syndrome, continue oral lasix 80mg bid. 5. HTN stable 6. Anasarca due to nephrotic proteinuria. continue lasix
--- NOTE | 2020-04-08 15:05 | CASEMGMT ---
SW received a call from patient's son, Eber. He said he has Medicaid papers that patient needs to sign. SW told him to take them to the main entrance at [facility] and let them know who they are for and they will get them to patient. DANITZA then explained about pending Medicaid and not getting dialysis in community on pending Medicaid and acute. DANITZA explained that physician feels patient is likely acute. SW told him [facility] has accepted him. SW also told him that Medicaid is not guaranteed and that if he does not get approved he would be responsible for all of the bills. He understands and hopes this does not happen as patient does not have any money. Sasha FREIRE MSW
[2020-04-08 16:06] LABS: Bedside Glucose 297 mg/dL (70-110)
--- NOTE | 2020-04-08 16:26 | PCM.PN.HOSP ---
Patient Problems: Active and Suspected Problems (Last Reviewed 03/29/20 @ 21:[address] Joe Montaño MD) Nephrotic syndrome (Acute) Pneumonia (Acute) Hyperkalemia (Acute) Chronic kidney disease (CKD) (Acute) Reason for Visit: Follow-up for possible ESRD/acute on chronic kidney. Objective: Patient had 1975 mL urine output today. On 24-hour urine collection for creatinine clearance estimation. Blood pressure is elevated. Physical exam General: Alert, Oriented x3, Cooperative HEENT: Atraumatic, PERRLA, EOMI, Normocephalic Oral: No Gingival or Mucosal Lesions/ Ulcerations Neck: Supple, No JVD, Negative Carotid Bruits Lungs: Air entry diminished in bilateral lung bases. No crepitation/rhonchi Cardiovascular: Regular rate, Regular Rhythm, Normal S1, Normal S2, No murmurs Abdomen: Bowel Sounds Present, Soft, Non Tender, Non-Distended : No renal angle tenderness. No suprapubic tenderness. Extremities: Bilateral thigh and knee edema has improved. Capillary Refill Less than 3 Seconds Skin: No rashes, No breakdown Musculoskeletal: No Tenderness to Palpation of Joints or Extremities Neurological: Cranial nerves II-XII grossly intact, Deep Tendon Reflexes 2+/4 and Symmetrical, Neuro grossly intact Psych/Mental Status: Normal Affect, Appropriate. Vitals/I&O's: Vital Signs Temp Pulse Resp BP Pulse Ox 98.2 F 86 18 170/75 H 95 04/08/20 14:16 04/08/20 14:20 04/08/20 14:16 04/08/20 14:20 04/08/20 14:16 Oxygen Delivery Method Room Air Weight: 266 lb 1.567 oz Body Mass Index (BMI) 41.5 Finger Stick Blood Glucose 76 Intake and Output for Last 24 Hours 04/06/20 04/07/20 04/08/20 23:59 23:59 23:59 Intake Total 480 / 480 480 / 820 820 / 820 Output Total 3000 / 3200 825 / 1375 1974 Balance -2520 / -2720 -345 / -555 -1155 / -1155 Laboratory Results 04/07/20 17:22: POC Glucose 233 H 04/07/20 20:38: POC Glucose 202 H 04/08/20 05:46: Sodium 136, Potassium 4.0, Chloride 103, Carbon Dioxide 26.0, BUN 70 H, Creatinine 3.68 H, Estim Creat Clear Calc 20.28, Est GFR (MDRD) Af Amer 22 L, Est GFR (MDRD) Non-Af 18 L, BUN/Creatinine Ratio 19.0, Glucose 167 H, Calcium 8.3 L, Phosphorus 4.6, Albumin 2.4 L 04/08/20 06:36: POC Glucose 175 H 04/08/20 11:33: POC Glucose 297 H Current Medications Acetaminophen (Acetaminophen 325 Mg Tablet) 650 mg PO Q6H PRN PRN PRN Reason: Pain Score 1-10/Temp > 100.7 F Last Admin: 04/08/20 11:37 Dose: 650 mg Documented by: Albuterol Sulfate (Albuterol 2.5 Mg/3 Ml Vial.Neb.) 2.5 mg INHALATION Q4H PRN PRN PRN Reason: SOB/WHEEZING Last Admin: 03/30/20 19:13 Dose: 2.5 mg Documented by: Amlodipine Besylate (Amlodipine 10 Mg Tablet) 10 mg PO DAILY [facility] Last Admin: 04/08/20 10:25 Dose: 10 mg Documented by: Amoxicillin/Clavulanate Potassium (Amox/Clavulanate 500 Mg Tablet) 500 mg PO DAILY@1700 [facility] Stop: 04/08/20 23:59 Last Admin: 04/07/20 17:26 Dose: 500 mg Documented by: Aspirin (Aspirin E.C. 81 Mg Tablet) 81 mg PO DAILY [facility] Last Admin: 04/08/20 10:25 Dose: 81 mg Documented by: Bisacodyl (Bisacodyl 10 Mg Suppository) 10 mg RECTAL DAILY PRN PRN Reason: Constipation Carvedilol (Carvedilol 25 Mg Tablet) 25 mg PO BID [facility] Last Admin: 03/30/20 11:45 Dose: 25 mg Documented by: Cyanocobalamin (Cyanocobalamin 500 Mcg Tablet) 1,000 mcg PO DAILY [facility] Last Admin: 04/08/20 10:24 Dose: 1,000 mcg Documented by: Dextrose (Dextrose 50%-Water 25 Gm/50 Ml Disp.Syrin) 0 gm IV X1 PRN; Protocol PRN Reason: Hypoglycemia Ergocalciferol (Ergocalciferol 50,000 Unit Capsule) 50,000 unit PO QWEEK [facility] Last Admin: 04/05/20 10:25 Dose: 50,000 unit Documented by: Furosemide (Furosemide 80 Mg Tablet) 80 mg PO BID@1000,1800 [facility] Last Admin: 04/08/20 10:25 Dose: 80 mg Documented by: Glucagon (Glucagon 1 Mg/Ml Syringe) 1 mg IM .X1 PRN PRN Reason: Hypoglycemia Guanfacine HCl (Guanfacine Hcl 1 Mg Tab.Er.24h) 1 mg PO DAILY@2200 [facility] Last Admin: 04/07/20 20:44 Dose: 1 mg Documented by: Heparin Sodium (Porcine) (Heparin Injection (Vial) 5,000 Unit/Ml Vial) 5,000 unit SC Q8 [facility] Last Admin: 04/08/20 14:21 Dose: 5,000 unit Documented by: Hydralazine HCl (Hydralazine 20 Mg/Ml Vial) 10 mg IV Q4H PRN PRN PRN Reason: SBP > 160 Hydralazine HCl (Hydralazine 25 Mg Tablet) 100 mg PO TID [facility] Sodium Chloride () 500 mls @ 15 mls/hr IV PRN PRN PRN Reason: Blood Transfusion Last Infusion: 04/04/20 21:58 Dose: Infused Documented by: Sodium Chloride () 250 mls @ 15 mls/hr IV .[id number] PRN PRN Reason: Saline Flush Sodium Chloride () 250 mls @ 15 mls/hr IV .[id number] PRN PRN Reason: Additional IVPB Infusion Insulin Glargine (Insulin Glargine 100 Units/Ml Pen) 40 units SC DAILY [facility] Last Admin: 04/08/20 10:26 Dose: 40 u Documented by: Insulin Human Lispro (Insulin Lispro 100 Unit/Ml Insuln.Pen) 0 unit SC ACHS [facility]; Protocol Last Admin: 04/08/20 11:36 Dose: 9 units Documented by: Insulin Lispro Protam/Lispro Human (Insulin Human 75/25 Kwickpen) 30 unit SC BREAKFAST [facility] Last Admin: 04/07/20 17:24 Dose: 30 u Documented by: Insulin Lispro Protam/Lispro Human (Insulin Human 75/25 Kwickpen) 30 unit SC DINNER [facility] Last Admin: 04/07/20 17:25 Dose: 30 u Documented by: Isosorbide Mononitrate (Isosorbide Mononitrate 30 Mg Tablet) 60 mg PO DAILY [facility] Metoprolol Tartrate (Metoprolol Tartrate 5 Mg/5 Ml Vial) 5 mg IV Q8H PRN PRN PRN Reason: SBP > 160, hold for HR < 60 Last Admin: 04/05/20 21:05 Dose: 5 mg Documented by: Multivit/Ca Carb/B Cmplx/FA/Prenat (Folic Acid/Vitamin B Comp W-C 1 Capsule) 1 capsule PO DAILY [facility] Last Admin: 04/08/20 10:25 Dose: 1 capsule Documented by: Nystatin (Nystatin Ointment) 1 applic TOPICAL BID [facility]; Protocol Last Admin: 04/08/20 10:27 Dose: Not Given Documented by: Ondansetron HCl (Ondansetron 4 Mg/2 Ml Vial) 4 mg IV Q8H PRN PRN PRN Reason: NAUSEA/VOMITING Last Admin: 04/02/20 00:06 Dose: 4 mg Documented by: Pantoprazole Sodium (Pantoprazole Sodium 40 Mg Tablet) 40 mg PO DAILY [facility] Last Admin: 04/08/20 10:24 Dose: 40 mg Documented by: Polyethylene Glycol (Polyethylene Glycol 3350 17 Gm Packet) 34 gm PO X1 PRN PRN Reason: Bowel Movement Last Admin: 04/04/20 07:35 Dose: 34 gm Documented by: Sodium Chloride (0.9% Saline Lock 10 Ml Syringe) 10 - 40 ml IV UD PRN PRN Reason: SALINE FLUSH Last Admin: 04/05/20 21:05 Dose: 20 ml Documented by: Tamsulosin HCl (Tamsulosin Hcl 0.4 Mg Capsule) 0.4 mg PO DAILY@1730 [facility] Last Admin: 04/07/20 17:26 Dose: 0.4 mg Documented by: STROKE Vital Signs/Narrative: Vital Signs Temp Pulse Resp BP Pulse Ox 04/08/20 14:20 86 170/75 H 04/08/20 14:16 98.2 F 89 18 170/75 H 95 Medical Necessity - Tobacco Use Smoking Status: Never smoker Assessment/Plan All Active Problems (Last Reviewed 03/29/20 @ 21:[address] Joe Montaño MD) Iron deficiency anemia (Acute) Nephrotic syndrome (Acute) Pneumonia (Acute) Hyperkalemia (Acute) Chronic kidney disease (CKD) (Acute) TIA (transient ischemic attack) (Resolved 09/19/18) Abrasion, left lower leg, initial encounter (Resolved) Contusion of left knee (Resolved) Contusion of lower leg, left (Resolved) Febrile illness (Resolved) History of small bowel obstruction (Resolved) Myocardial infarct (Resolved) Stroke-like symptoms (Resolved) Syncope (Resolved 10/16/18) history of traumatic pneumothorax (Resolved) 1. Hyperkalemia, resolved. Patient was started on hemodialysis. Status post Kayexalate and Miralax Will continue to monitor off losartan 2. ANGELIA on CKD stage IV or ESRD due to DM type II. Previous creatinine of 3.1, admitted creatinine of 4.32. Patient had tunneled dialysis catheter. Had consecutive 3 days of hemodialysis. 980 mL of urine output.. Losartan on hold. Discussed with the forest botany instructor Dr. Sanford listed possible ESRD. Creatinine clearance estimated 30 cc mils per minute. Possible ESRD. 04/07: Dr. Sanford ordered 24-hour creatinine clearance to estimate GFR. Follow-up renal profile for a while. Patient does not have insurance therefore case resource manager working on transition of inpatient hemodialysis to outpatient. 04/08: Patient had about 2 L of urine output today. Dialysis did not had dialysis today. 3. Acute on chronic anemia of CKD, status post 1 unit PRBC transfusion; repeat Hb is 8.3 stable. Stool for occult blood is negative. Status post 1 unit packed RBCs H&H is stable at 8.1 g%. 4. Pneumonia, without hypoxia, slowly improving, urine sodium growth and Legionella antigen negative Continue on Augmentin to complete 10 days; last dose was 04/08/20. 5. type II DM, blood sugar elevated with nephrotic syndrome, diabetic nephropathy. Patient on Lantus insulin and 7525, dose was adjusted. 6. Chronic venostasis with chronic leg ulcers with mild erythema 7. Hypertension, blood pressure high. Blood pressure is high. Hydralazine increased 200 mg 3 times daily and Imdur to 60 mg daily. Continued on carvedilol, amlodipine 8. DVT prophylaxis with heparin SC Laboratory Results 04/07/20 17:22: POC Glucose 233 H 04/07/20 20:38: POC Glucose 202 H 04/08/20 05:46: Sodium 136, Potassium 4.0, Chloride 103, Carbon Dioxide 26.0, BUN 70 H, Creatinine 3.68 H, Estim Creat Clear Calc 20.28, Est GFR (MDRD) Af Amer 22 L, Est GFR (MDRD) Non-Af 18 L, BUN/Creatinine Ratio 19.0, Glucose 167 H, Calcium 8.3 L, Phosphorus 4.6, Albumin 2.4 L 04/08/20 06:36: POC Glucose 175 H 04/08/20 11:33: POC Glucose 297 H Clinical Impression(s) from Imaging Studies Chest X-Ray 03/29/20 18:40 IMPRESSION: Right lower lobe infiltrate. Electronically Signed: Erwin Rosas DO at 20:10 EST Tel [phone], Service support , Chest X-Ray 03/31/20 15:24 IMPRESSION: The tip of the hemodialysis catheter is in the midportion of the superior vena cava Electronically Signed: Rigo Liriano, at 15:37 EST , Service support , Inpatient E&M: [id number] Subs Hosp L2
[2020-04-08] MEDS: Amox/Clavulanate 500 MG Tablet PO (17:04)
[2020-04-08] MEDS: Insulin Human 75/25 Kwickpen 30 UNIT SC (17:05)
[2020-04-08] MEDS: Tamsulosin HCl 0.4 MG Capsule PO (17:07)
[2020-04-08 17:15] LABS: Bedside Glucose 359 mg/dL (70-110)
[2020-04-08 18:52] LABS: Creat.Clear Total Volume 2275 mL; Creatinine Clearance 33 ml/min (100-200); Creatinine Serum Creat 3.7 mg/dL (0.8-1.3); Creatinine Urine 77.5 mg/dL (NO RANGE EST.); EST Glomerular Filtration Rate 18 mL/min (>60); Est Glom Filt Rate - Afr Amer 22 mL/min (>60)
[2020-04-08] MEDS: hydrALAZINE 50 MG Tablet 100 MG PO (21:05)
[2020-04-08] MEDS: GUANFACINE HCL 1 MG TAB.ER.24H PO (21:06)
[2020-04-08 21:51] LABS: Bedside Glucose 322 mg/dL (70-110)
[2020-04-09] VITALS (8 sets, daily range): BP systolic 139–153; BP diastolic 60–73; PULSE 77–91; RESP 16–18; TEMP 36.4–36.8; O2SAT 95–98
[2020-04-09] MEDS: Heparin Injection (Vial) 5,000 UNIT/ML VIAL 5000 UNIT SC ×2 (06:12→13:59)
[2020-04-09] MEDS: hydrALAZINE 50 MG Tablet 100 MG PO ×2 (06:12→13:57)
[2020-04-09 07:05] LABS: Hematocrit 26.9 % (40-54); Mean Corp Hgb Conc 29.7 g/dL (32-36); Mean Corpuscular Hgb 24.8 pg (27.0-32.0); Mean Corpuscular Volume 83.5 fL (80-94); Mean Platelet Vol. 10.7 fl (6.2-12.0); Platelet Count 231 K/mm3 (150-450); RBC Distribution Width CV 14.3 % (11.6-14.6); RBC Distribution Width SD 43.7 fl (35.1-43.9); Red Blood Count 3.22 M/mm3 (4.6-6.2); White Blood Count 6.8 K/mm3 (4.4-11.0)
[2020-04-09 07:41] LABS: Albumin, Serum 2.5 g/dL (3.2-5.0); BUN 79 mg/dL (7-18); BUN/Creat Ratio 22.1 RATIO (10-20); Calcium,Total 8.4 mg/dL (8.5-10.1); Chloride 100 mmol/L (98-107); Creatinine, Serum 3.57 mg/dL (0.70-1.30); EST Glomerular Filtration Rate 18 mL/min (>60); Est Glom Filt Rate - Afr Amer 22 mL/min (>60); Glucose 209 mg/dL (74-106); Phosphorus 4.7 mg/dL (2.5-4.9); Potassium 4.1 mmol/L (3.5-5.1); Sodium Level 134 mmol/L (136-145)
[2020-04-09 08:06] LABS: Bedside Glucose 195 mg/dL (70-110)
[2020-04-09] MEDS: Aspirin E.C. 81 MG Tablet PO (08:49)
[2020-04-09] MEDS: Folic Acid/Vitamin B Comp W-C 1 Capsule 1 CAP PO (08:50)
[2020-04-09] MEDS: Insulin Human 75/25 Kwickpen 30 UNIT SC ×2 (08:51→17:00)
[2020-04-09] MEDS: Insulin Lispro 100 UNIT/ML INSULN.PEN SC ×3 (08:52→16:59)
--- NOTE | 2020-04-09 09:30 | CASEMGMT ---
DANITZA had the papers that patient's son dropped off for patient to sign. SW met with patient and assisted him with papers. DANITZA explained to him that he will not be going on dialysis and that he will follow up with Dr Sanford as an outpatient and she will watch his labs. DANITZA told him he will go to [facility] today. He said his son has not dropped off any clothes. DANITZA told him SW will call him and ask him to bring in clothes when he picks up papers. DANITZA called patient's son and let him know SW will leave the envelope with papers at the front line leader. DANITZA also asked him to please get patient some clothes. He said he can do this, but it will not be until after 2p. DANITZA told him that is fine. Plan: Sasha FREIRE MSW
--- NOTE | 2020-04-09 09:48 | CASEMGMT ---
Per dialysis nurse per Dr. Sanford, pt's OP HD to be held at this time following results of 24 hr urine. Pt to be discharged to [facility] today and to f/u with Dr. Juvenal Willson at [facility] updated at this time, voices understanding. Scott LAY CM
[2020-04-09] MEDS: Furosemide 80 MG Tablet PO ×2 (10:44→16:59)
[2020-04-09] MEDS: Isosorbide Mononitrate 60 MG Tablet PO (10:45)
[2020-04-09] MEDS: amLODIPine 10 MG Tablet PO (10:45)
[2020-04-09] MEDS: Pantoprazole Sodium 40 MG Tablet PO (10:45)
[2020-04-09] MEDS: Cyanocobalamin 500 MCG Tablet 1000 MCG PO (10:45)
--- NOTE | 2020-04-09 10:53 | PCM.PN.REN ---
Patient Problems: Active and Suspected Problems (Last Reviewed 03/29/20 @ 21:[address] Joe Montaño MD) Nephrotic syndrome (Acute) Pneumonia (Acute) Hyperkalemia (Acute) Chronic kidney disease (CKD) (Acute) Subjective: repeat 24h urine CRCL improved to 33cc/min ( appears to be an overcollection with 24h urine creatinine >1440mg). Diuresing well on oral lasix. Will hold on further dialysis and have him f/u in office with me with labs in 1 week. Ok to discharge to [facility] from renal standpoint. - Physical Exam Vitals/I&O's: Vital Signs Temp Pulse Resp BP Pulse Ox 98.3 F 77 18 149/73 H 98 04/09/20 03:55 04/09/20 07:51 04/09/20 03:55 04/09/20 03:55 04/09/20 03:55 Oxygen Delivery Method Room Air Weight: 121.5 kg Body Mass Index (BMI) 41.5 Finger Stick Blood Glucose 76 Intake and Output for Last 24 Hours 04/07/20 04/08/20 04/09/20 23:59 23:59 23:59 Intake Total 480 / 820 1320 / 1570 650 / 650 Output Total 825 / 1375 2600 / 2800 850 / 850 Balance -345 / -555 -1280 / -1230 -200 / -200 Laboratory Results 04/08/20 11:33: POC Glucose 297 H 04/08/20 15:48: Creatinine 3.7 H, Est GFR (MDRD) Af Amer 22 L, Est GFR (MDRD) Non-Af 18 L, Urine Collection Time 24.0, Timed Urine Volume 2275, Urine Creatinine 77.5, Creatinine Clearance 33 L 04/08/20 17:03: POC Glucose 359 H 04/08/20 20:58: POC Glucose 322 H 04/09/20 06:15: Sodium 134 L, Potassium 4.1, Chloride 100, Carbon Dioxide 25.0, BUN 79 H, Creatinine 3.57 H, Estim Creat Clear Calc 20.90, Est GFR (MDRD) Af Amer 22 L, Est GFR (MDRD) Non-Af 18 L, BUN/Creatinine Ratio 22.1 H, Glucose 209 H, Calcium 8.4 L, Phosphorus 4.7, Albumin 2.5 L 04/09/20 06:15: WBC 6.8, RBC 3.22 L, Hgb 8.0 L, Hct 26.9 L, MCV 83.5, MCH 24.8 L, MCHC 29.7 L, RDW Std Deviation 43.7, RDW Coeff of Lina 14.3, Plt Count 231, MPV 10.7 04/09/20 07:58: POC Glucose 195 H Current Medications Acetaminophen (Acetaminophen 325 Mg Tablet) 650 mg PO Q6H PRN PRN PRN Reason: Pain Score 1-10/Temp > 100.7 F Last Admin: 04/08/20 11:37 Dose: 650 mg Documented by: Albuterol Sulfate (Albuterol 2.5 Mg/3 Ml Vial.Neb.) 2.5 mg INHALATION Q4H PRN PRN PRN Reason: SOB/WHEEZING Last Admin: 03/30/20 19:13 Dose: 2.5 mg Documented by: Amlodipine Besylate (Amlodipine 10 Mg Tablet) 10 mg PO DAILY [facility] Last Admin: 04/09/20 10:45 Dose: 10 mg Documented by: Aspirin (Aspirin E.C. 81 Mg Tablet) 81 mg PO DAILY [facility] Last Admin: 04/09/20 08:49 Dose: 81 mg Documented by: Bisacodyl (Bisacodyl 10 Mg Suppository) 10 mg RECTAL DAILY PRN PRN Reason: Constipation Carvedilol (Carvedilol 25 Mg Tablet) 25 mg PO BID [facility] Last Admin: 03/30/20 11:45 Dose: 25 mg Documented by: Cyanocobalamin (Cyanocobalamin 500 Mcg Tablet) 1,000 mcg PO DAILY [facility] Last Admin: 04/09/20 10:45 Dose: 1,000 mcg Documented by: Dextrose (Dextrose 50%-Water 25 Gm/50 Ml Disp.Syrin) 0 gm IV X1 PRN; Protocol PRN Reason: Hypoglycemia Ergocalciferol (Ergocalciferol 50,000 Unit Capsule) 50,000 unit PO QWEEK [facility] Last Admin: 04/05/20 10:25 Dose: 50,000 unit Documented by: Furosemide (Furosemide 80 Mg Tablet) 80 mg PO BID@1000,1800 [facility] Last Admin: 04/09/20 10:44 Dose: 80 mg Documented by: Glucagon (Glucagon 1 Mg/Ml Syringe) 1 mg IM .X1 PRN PRN Reason: Hypoglycemia Guanfacine HCl (Guanfacine Hcl 1 Mg Tab.Er.24h) 1 mg PO DAILY@2200 [facility] Last Admin: 04/08/20 21:06 Dose: 1 mg Documented by: Heparin Sodium (Porcine) (Heparin Injection (Vial) 5,000 Unit/Ml Vial) 5,000 unit SC Q8 [facility] Last Admin: 04/09/20 06:12 Dose: 5,000 unit Documented by: Hydralazine HCl (Hydralazine 20 Mg/Ml Vial) 10 mg IV Q4H PRN PRN PRN Reason: SBP > 160 Hydralazine HCl (Hydralazine 50 Mg Tablet) 100 mg PO TID [facility] Last Admin: 04/09/20 06:12 Dose: 100 mg Documented by: Sodium Chloride () 500 mls @ 15 mls/hr IV PRN PRN PRN Reason: Blood Transfusion Last Infusion: 04/04/20 21:58 Dose: Infused Documented by: Sodium Chloride () 250 mls @ 15 mls/hr IV .[id number] PRN PRN Reason: Saline Flush Sodium Chloride () 250 mls @ 15 mls/hr IV .[id number] PRN PRN Reason: Additional IVPB Infusion Insulin Glargine (Insulin Glargine 100 Units/Ml Pen) 40 units SC DAILY [facility] Last Admin: 04/09/20 08:50 Dose: 40 u Documented by: Insulin Human Lispro (Insulin Lispro 100 Unit/Ml Insuln.Pen) 0 unit SC ACHS [facility]; Protocol Last Admin: 04/09/20 08:52 Dose: 3 units Documented by: Insulin Lispro Protam/Lispro Human (Insulin Human 75/25 Kwickpen) 30 unit SC BREAKFAST [facility] Last Admin: 04/09/20 08:51 Dose: 30 u Documented by: Insulin Lispro Protam/Lispro Human (Insulin Human 75/25 Kwickpen) 30 unit SC DINNER [facility] Last Admin: 04/08/20 17:05 Dose: 30 u Documented by: Isosorbide Mononitrate (Isosorbide Mononitrate 60 Mg Tablet) 60 mg PO DAILY [facility] Last Admin: 04/09/20 10:45 Dose: 60 mg Documented by: Metoprolol Tartrate (Metoprolol Tartrate 5 Mg/5 Ml Vial) 5 mg IV Q8H PRN PRN PRN Reason: SBP > 160, hold for HR < 60 Last Admin: 04/05/20 21:05 Dose: 5 mg Documented by: Multivit/Ca Carb/B Cmplx/FA/Prenat (Folic Acid/Vitamin B Comp W-C 1 Capsule) 1 capsule PO DAILY [facility] Last Admin: 04/09/20 08:50 Dose: 1 capsule Documented by: Nystatin (Nystatin Ointment) 1 applic TOPICAL BID [facility]; Protocol Last Admin: 04/09/20 10:46 Dose: Not Given Documented by: Ondansetron HCl (Ondansetron 4 Mg/2 Ml Vial) 4 mg IV Q8H PRN PRN PRN Reason: NAUSEA/VOMITING Last Admin: 04/02/20 00:06 Dose: 4 mg Documented by: Pantoprazole Sodium (Pantoprazole Sodium 40 Mg Tablet) 40 mg PO DAILY [facility] Last Admin: 04/09/20 10:45 Dose: 40 mg Documented by: Polyethylene Glycol (Polyethylene Glycol 3350 17 Gm Packet) 34 gm PO X1 PRN PRN Reason: Bowel Movement Last Admin: 04/04/20 07:35 Dose: 34 gm Documented by: Sodium Chloride (0.9% Saline Lock 10 Ml Syringe) 10 - 40 ml IV UD PRN PRN Reason: SALINE FLUSH Last Admin: 04/05/20 21:05 Dose: 20 ml Documented by: Tamsulosin HCl (Tamsulosin Hcl 0.4 Mg Capsule) 0.4 mg PO DAILY@1730 [facility] Last Admin: 04/08/20 17:07 Dose: 0.4 mg Documented by: Medical Necessity - Tobacco Use Smoking Status: Never smoker Assessment/Plan All Active Problems (Last Reviewed 03/29/20 @ 21:[address] Joe Montaño MD) Iron deficiency anemia (Acute) Nephrotic syndrome (Acute) Pneumonia (Acute) Hyperkalemia (Acute) Chronic kidney disease (CKD) (Acute) TIA (transient ischemic attack) (Resolved 09/19/18) Abrasion, left lower leg, initial encounter (Resolved) Contusion of left knee (Resolved) Contusion of lower leg, left (Resolved) Febrile illness (Resolved) History of small bowel obstruction (Resolved) Myocardial infarct (Resolved) Stroke-like symptoms (Resolved) Syncope (Resolved 10/16/18) history of traumatic pneumothorax (Resolved) 1. Acute on CKD 4 v Repeat 24h urine crcl 33cc/min which appears to be slight overcollection/over estimation. Regardless, he is not at ESRD. Hold on further dialysis. OK to discharge to [facility] from renal standpoint. Follow up with me in office in 1-2wks with renal panel next week. 2. Hyperkalemia resolved. FOllow low K diet on discharge. 3. Iron def anemia iv iron load, s/p prbc 4. DM2 with nephrotic syndrome, continue oral lasix 80mg bid. 5. HTN stable 6. Anasarca due to nephrotic proteinuria. continue lasix
--- NOTE | 2020-04-09 11:20 | PCM.TXEXTCAR ---
- Diet 04/02/20 11:50 Diet: Renal - ConsCHO - Gabo Cont Food consistency:: Regular Liquid Consistency:: Regular/Thin Is pt able to select menu?: Yes Diet Comments: No protein restriction d/t HD How many daily calories?: 1999 calorie - Routine Orders/Code Status Suppository Type: Dulcolax 10mg Suppository Frequency: Daily PRN Code Status: DNRCC-A - Wound(s) BLE Wound Type: superficial open areas to the right posterior lower leg Dressing Change: Adaptic RIGHT NECK Wound Type: Surgical Incision DIALYSIS CATHETER - RIGHT UPPER CHEST Wound Type: Surgical Incision - Therapies Weight Bearing: Weight bearing as tolerated Physical Therapy: Eval and Treat Occupational Therapy: Eval and Treat Speech Therapy: Eval and Treat - Allergies/Procedures Done in Hospital Allergies/Adverse Reactions: Allergies escitalopram [From Lexapro] Allergy (Verified 03/03/20 14:29) Unknown sertraline [From Zoloft] Allergy (Verified 03/03/20 14:29) Unknown lisinopril Adverse Reaction (Severe, Verified 03/03/20 14:29) Cough - Type of Care/Length of Stay Estimated LOS: Convalescent Care Less Than 30 days Type of Care Needed: Intermediate Rehab Potential: Good Prognosis: Good - Additional Orders/Day of Discharge Day of Discharge: 04/07/20 - Dietary and Speech Recommendations Dietitian Recommendations/Changes: Continue 1999 calorie/Renal general (no protein restriction). - Follow Up Care Primary Care Physician: Gene Miller MD [Primary Care Provider] - Please follow up with your Primary Care Physician in: in 2 weeks Please Follow Up With: Kandis Sanford DO When: in 2 weeks
--- NOTE | 2020-04-09 12:07 | DIALYSIS ---
Right chest wall dialysis catheter dressing is dry and intact. Heparin removed from both lumens, both lumens flushed with 0.9% NS, and both lumens closed with heparin. Caps placed. No problems noted.
[2020-04-09 12:10] LABS: Bedside Glucose 252 mg/dL (70-110)
[2020-04-09] MEDS: Ferrous Sulfate 325 MG Tablet PO ×2 (12:19→16:59)
--- NOTE | 2020-04-09 12:47 | PCM.DC.SUM ---
Discharge Date and Diagnosis - Problem List Patient Problems: Active and Suspected Problems (Last Reviewed 03/29/20 @ 21:[address] Joe Montaño MD) Nephrotic syndrome (Acute) Pneumonia (Acute) Hyperkalemia (Acute) Chronic kidney disease (CKD) (Acute) Date of Admission: 03/29/20 Date of Discharge: 04/09/20 - Primary Discharge Diagnosis Acute Problems: Active Problems (Last Reviewed 03/29/20 @ 21:[address] Joe Montaño MD) Nephrotic syndrome (Acute) Pneumonia (Acute) Hyperkalemia (Acute) Chronic kidney disease (CKD) (Acute) - Secondary Discharge Diagnosis Chronic Problems: Chronic Problems (Last Reviewed 03/29/20 @ 21:[address] Joe Montaño MD) Vitreous hemorrhage, bilateral (Chronic) Shortness of breath (Chronic) DVT of lower extremity (deep venous thrombosis) (Chronic 09/2018) left Old inferior wall myocardial infarction (Chronic) History of coronary artery stent placement (Chronic 06/17/15) PCI-JEAN CARLOS-CX 06/17/15 Essential (primary) hypertension (Chronic) Atherosclerotic heart disease of [place] coronary artery without angina pectoris (Chronic) PCI-JEAN CARLOS-CX 06/17/15 Hyperlipidemia (Chronic) Hospital Course and Treatment Consultations 03/29/20 22:53 Consult: Onc/Wound/electronics test engineer Routine Comment: Reason for Consult:: Bilateral leg wounds Operations: None Summary of Care Provided: The patient is a 64 year old M who was admitted with history of DVT, coronary artery status post stents was admitted with progressive worsening of shortness of breath for 1 month, malaise and was found hypoglycemic, glucose 29 in the ED. Patient hypoglycemia resolved with D50. Patient also had hyperkalemia, K6.0. 1. Hyperkalemia, resolved. Patient was started on hemodialysis. Status post Kayexalate and Miralax. Losartan discontinued 2. ANGELIA on CKD stage IV or ESRD due to DM type II. Previous creatinine of 3.1, admitted creatinine of 4.32. Patient had tunneled dialysis catheter. Had consecutive 3 days of hemodialysis. And had good urine output about 2 L. 24-hour urine collection shows creatinine clearance 33 mL/min. Total urine volume 2275. Patient having urine output about 2000- 2600 mL daily. 3. Acute on chronic anemia of CKD, status post 1 unit PRBC transfusion; repeat Hb is 8.3 stable. Stool for occult blood is negative. Status post 1 unit packed RBCs H&H is stable about 8.0. 4. Pneumonia, without hypoxia, slowly improving, urine sodium growth and Legionella antigen negative Continue on Augmentin to complete 10 days; last dose was 04/08/20. 5. type II DM, blood sugar elevated with nephrotic syndrome, diabetic nephropathy. Patient on Lantus insulin and 75/25, dose was adjusted. Patient is discharged on insulin 75/25 and Tresiba. 6. Chronic venostasis with chronic leg ulcers with mild erythema 7. Hypertension, blood pressure high. Blood pressure is high. Hydralazine increased 200 mg 3 times daily and Imdur to 60 mg daily. Continued on carvedilol, amlodipine 8. DVT prophylaxis with heparin SC Discharge medication reconciliation done. Discharge follow-up instructions completed. Discharge process discussed with the patient and all questions were answered to patient's satisfaction. Discussed with the case management manager. COVID-19 rapid antigen test negative. Discharge to SNF. Total time spent, exact 35 minutes on discharge meds reconciliation, examination, coordination of care with nurses and ancillary staff, review of imaging and blood test and discussion with the patient on follow-up instructions Patient Problems: Active and Suspected Problems (Last Reviewed 03/29/20 @ 21:[address] Joe Montaño MD) Nephrotic syndrome (Acute) Pneumonia (Acute) Hyperkalemia (Acute) Chronic kidney disease (CKD) (Acute) Objective: Seen and examined. Urine output 2600 mL yesterday. Had 1100 ml since morning today. Physical exam General: Alert, Oriented x3, Cooperative HEENT: Atraumatic, PERRLA, EOMI, Normocephalic Oral: No Gingival or Mucosal Lesions/ Ulcerations Neck: Supple, No JVD, Negative Carotid Bruits Lungs: Air entry diminished in bilateral lung bases. No crepitation/rhonchi Cardiovascular: Regular rate, Regular Rhythm, Normal S1, Normal S2, No murmurs Abdomen: Bowel Sounds Present, Soft, Non Tender, Non-Distended : No renal angle tenderness. No suprapubic tenderness. Extremities: Bilateral thigh and knee edema has improved. Capillary Refill Less than 3 Seconds Skin: No rashes, No breakdown Musculoskeletal: No Tenderness to Palpation of Joints or Extremities Neurological: Cranial nerves II-XII grossly intact, Deep Tendon Reflexes 2+/4 and Symmetrical, Neuro grossly intact Psych/Mental Status: Normal Affect, Appropriate. - Physical Exam Vitals/I&O's: Vital Signs Temp Pulse Resp BP Pulse Ox 97.9 F 91 16 139/60 H 95 04/09/20 09:55 04/09/20 09:55 04/09/20 09:55 04/09/20 09:55 04/09/20 09:55 Oxygen Delivery Method Room Air Weight: 267 lb 13.786 oz Body Mass Index (BMI) 41.5 Finger Stick Blood Glucose 76 Intake and Output for Last 24 Hours 04/07/20 04/08/20 04/09/20 23:59 23:59 23:59 Intake Total 480 / 820 1320 / 1570 650 / 650 Output Total 825 / 1375 2600 / 2800 850 / 850 Balance -345 / -555 -1280 / -1230 -200 / -200 Laboratory Results 04/08/20 11:33: POC Glucose 297 H 04/08/20 15:48: Creatinine 3.7 H, Est GFR (MDRD) Af Amer 22 L, Est GFR (MDRD) Non-Af 18 L, Urine Collection Time 24.0, Timed Urine Volume 2275, Urine Creatinine 77.5, Creatinine Clearance 33 L 04/08/20 17:03: POC Glucose 359 H 04/08/20 20:58: POC Glucose 322 H 04/09/20 06:15: Sodium 134 L, Potassium 4.1, Chloride 100, Carbon Dioxide 25.0, BUN 79 H, Creatinine 3.57 H, Estim Creat Clear Calc 20.90, Est GFR (MDRD) Af Amer 22 L, Est GFR (MDRD) Non-Af 18 L, BUN/Creatinine Ratio 22.1 H, Glucose 209 H, Calcium 8.4 L, Phosphorus 4.7, Albumin 2.5 L 04/09/20 06:15: WBC 6.8, RBC 3.22 L, Hgb 8.0 L, Hct 26.9 L, MCV 83.5, MCH 24.8 L, MCHC 29.7 L, RDW Std Deviation 43.7, RDW Coeff of Lina 14.3, Plt Count 231, MPV 10.7 04/09/20 06:15: Iron Pending 04/09/20 07:58: POC Glucose 195 H 04/09/20 12:00: POC Glucose 252 H Current Medications Acetaminophen (Acetaminophen 325 Mg Tablet) 650 mg PO Q6H PRN PRN PRN Reason: Pain Score 1-10/Temp > 100.7 F Last Admin: 04/08/20 11:37 Dose: 650 mg Documented by: Albuterol Sulfate (Albuterol 2.5 Mg/3 Ml Vial.Neb.) 2.5 mg INHALATION Q4H PRN PRN PRN Reason: SOB/WHEEZING Last Admin: 03/30/20 19:13 Dose: 2.5 mg Documented by: Amlodipine Besylate (Amlodipine 10 Mg Tablet) 10 mg PO DAILY [facility] Last Admin: 04/09/20 10:45 Dose: 10 mg Documented by: Aspirin (Aspirin E.C. 81 Mg Tablet) 81 mg PO DAILY [facility] Last Admin: 04/09/20 08:49 Dose: 81 mg Documented by: Bisacodyl (Bisacodyl 10 Mg Suppository) 10 mg RECTAL DAILY PRN PRN Reason: Constipation Carvedilol (Carvedilol 25 Mg Tablet) 25 mg PO BID [facility] Last Admin: 03/30/20 11:45 Dose: 25 mg Documented by: Cyanocobalamin (Cyanocobalamin 500 Mcg Tablet) 1,000 mcg PO DAILY [facility] Last Admin: 04/09/20 10:45 Dose: 1,000 mcg Documented by: Dextrose (Dextrose 50%-Water 25 Gm/50 Ml Disp.Syrin) 0 gm IV X1 PRN; Protocol PRN Reason: Hypoglycemia Ergocalciferol (Ergocalciferol 50,000 Unit Capsule) 50,000 unit PO QWEEK [facility] Last Admin: 04/05/20 10:25 Dose: 50,000 unit Documented by: Ferrous Sulfate (Ferrous Sulfate 325 Mg Tablet) 325 mg PO 1200,1700 [facility] Last Admin: 04/09/20 12:19 Dose: 325 mg Documented by: Furosemide (Furosemide 80 Mg Tablet) 80 mg PO BID@1000,1800 [facility] Last Admin: 04/09/20 10:44 Dose: 80 mg Documented by: Glucagon (Glucagon 1 Mg/Ml Syringe) 1 mg IM .X1 PRN PRN Reason: Hypoglycemia Guanfacine HCl (Guanfacine Hcl 1 Mg Tab.Er.24h) 1 mg PO DAILY@2200 [facility] Last Admin: 04/08/20 21:06 Dose: 1 mg Documented by: Heparin Sodium (Porcine) (Heparin Injection (Vial) 5,000 Unit/Ml Vial) 5,000 unit SC Q8 [facility] Last Admin: 04/09/20 06:12 Dose: 5,000 unit Documented by: Hydralazine HCl (Hydralazine 20 Mg/Ml Vial) 10 mg IV Q4H PRN PRN PRN Reason: SBP > 160 Hydralazine HCl (Hydralazine 50 Mg Tablet) 100 mg PO TID [facility] Last Admin: 04/09/20 06:12 Dose: 100 mg Documented by: Sodium Chloride () 500 mls @ 15 mls/hr IV PRN PRN PRN Reason: Blood Transfusion Last Infusion: 04/04/20 21:58 Dose: Infused Documented by: Sodium Chloride () 250 mls @ 15 mls/hr IV .[id number] PRN PRN Reason: Saline Flush Sodium Chloride () 250 mls @ 15 mls/hr IV .[id number] PRN PRN Reason: Additional IVPB Infusion Insulin Glargine (Insulin Glargine 100 Units/Ml Pen) 40 units SC DAILY [facility] Last Admin: 04/09/20 08:50 Dose: 40 u Documented by: Insulin Human Lispro (Insulin Lispro 100 Unit/Ml Insuln.Pen) 0 unit SC ACHS [facility]; Protocol Last Admin: 04/09/20 12:18 Dose: 6 units Documented by: Insulin Lispro Protam/Lispro Human (Insulin Human 75/25 Kwickpen) 30 unit SC BREAKFAST [facility] Last Admin: 04/09/20 08:51 Dose: 30 u Documented by: Insulin Lispro Protam/Lispro Human (Insulin Human 75/25 Kwickpen) 30 unit SC DINNER [facility] Last Admin: 04/08/20 17:05 Dose: 30 u Documented by: Isosorbide Mononitrate (Isosorbide Mononitrate 60 Mg Tablet) 60 mg PO DAILY [facility] Last Admin: 04/09/20 10:45 Dose: 60 mg Documented by: Metoprolol Tartrate (Metoprolol Tartrate 5 Mg/5 Ml Vial) 5 mg IV Q8H PRN PRN PRN Reason: SBP > 160, hold for HR < 60 Last Admin: 04/05/20 21:05 Dose: 5 mg Documented by: Multivit/Ca Carb/B Cmplx/FA/Prenat (Folic Acid/Vitamin B Comp W-C 1 Capsule) 1 capsule PO DAILY [facility] Last Admin: 04/09/20 08:50 Dose: 1 capsule Documented by: Nystatin (Nystatin Ointment) 1 applic TOPICAL BID [facility]; Protocol Last Admin: 04/09/20 10:46 Dose: Not Given Documented by: Ondansetron HCl (Ondansetron 4 Mg/2 Ml Vial) 4 mg IV Q8H PRN PRN PRN Reason: NAUSEA/VOMITING Last Admin: 04/02/20 00:06 Dose: 4 mg Documented by: Pantoprazole Sodium (Pantoprazole Sodium 40 Mg Tablet) 40 mg PO DAILY [facility] Last Admin: 04/09/20 10:45 Dose: 40 mg Documented by: Polyethylene Glycol (Polyethylene Glycol 3350 17 Gm Packet) 34 gm PO X1 PRN PRN Reason: Bowel Movement Last Admin: 04/04/20 07:35 Dose: 34 gm Documented by: Sodium Chloride (0.9% Saline Lock 10 Ml Syringe) 10 - 40 ml IV UD PRN PRN Reason: SALINE FLUSH Last Admin: 04/05/20 21:05 Dose: 20 ml Documented by: Tamsulosin HCl (Tamsulosin Hcl 0.4 Mg Capsule) 0.4 mg PO DAILY@1730 [facility] Last Admin: 04/08/20 17:07 Dose: 0.4 mg Documented by: Home Medications: Medications to take at Discharge Nitroglycerin (INPATIENT USE) [Nitrostat] 0.4 mg SUBLINGUAL Q5M PRN 06/30/15 Insulin Degludec [Tresiba Flextouch U-200] 42 unit SQ DAILY 02/20/17 Aspirin E.C. [Ecotrin] 81 mg PO DAILY #0 07/09/18 carvedilol 25 mg tablet 25 mg PO BID #180 tab 06/16/19 pantoprazole 40 mg tablet,delayed release 40 mg PO QDAY #90 tab 06/16/19 amlodipine 10 mg tablet 10 mg PO DAILY 02/10/20 cholecalciferol (vitamin D3) 1,250 mcg (50,000 unit) capsule 1,250 mcg PO QWEEK 02/10/20 cyanocobalamin (vitamin B-12) 1,000 mcg capsule 1,000 mcg PO DAILY 02/10/20 ferrous sulfate 325 mg (65 mg iron) tablet 325 mg PO DAILY 02/10/20 guanfacine 1 mg tablet 1 mg PO DAILY 02/10/20 Ferrous Sulfate 325 mg PO DAILY tab 04/09/20 Folic Acid/Vitamin B Comp W-C [Nephrocaps, Renaphro] 1 cap PO DAILY cap 04/09/20 Furosemide [Lasix] 80 mg PO BID@1000,1800 tab 04/09/20 Insulin Human 75/25 [Humalog Mix 75-25 Kwikpen ([facility])] 30 unit SC BREAKFAST insuln.pen 04/09/20 Insulin Human 75/25 [Humalog Mix 75-25 Kwikpen ([facility])] 30 unit SC DINNER insuln.pen 04/09/20 Insulin Lispro [Humalog KwikPen] See Protocol SC ACHS insuln.pen 04/09/20 Isosorbide Mononitrate [Imdur] 60 mg PO DAILY tab 04/09/20 Nystatin [Mycostatin] 1 applic TOPICAL BID tube 04/09/20 Polyethylene Glycol 3350 [Miralax] 34 gm PO X1 PRN packet 04/09/20 Tamsulosin HCl [Flomax] 0.4 mg PO DAILY@1730 cap 04/09/20 hydrALAZINE [Apresoline] 100 mg PO TID tab 04/09/20 Primary Care Physician: Gene Miller MD [Primary Care Provider] - Please follow up with your Primary Care Physician in: in 2 weeks Please Follow Up With: Kandis Sanford DO When: in 2 weeks Medical Necessity - Tobacco Use Smoking Status: Never smoker Meaningful Use Info Meaningful Use Diagnoses (Choose all that apply): None applicable Inpatient E&M: [id number] [facility]
[2020-04-09 12:49] LABS: Iron 52 ug/dL (65-175)
[2020-04-09] MEDS: Heparin 10,000 UNITS/10 ML Vial IV (13:55)
--- NOTE | 2020-04-09 14:11 | CASEMGMT ---
Addendum entered by Sasha Olivas 04/09/20 14:24: Plan: [facility] under intermediate level of care on a convalescent stay on pending Medicaid. Pending Medicaid number is [id number]. Sasha DRIVER Original Note: DANITZA left a message this am for [facility] letting them know patient will be coming today. SW also let them know he will not be on dialysis. DANITZA faxed orders and level of care to [facility]. DANITZA wrote on fax face sheet that no time has been arranged yet as we are waiting on his COVID test and his son delivers clothes. DANITZA did call [facility] and placed patient on the will call list. Sasha DRIVER
--- NOTE | 2020-04-09 16:00 | CASEMGMT ---
Patient got his clothes from his son. SW called [facility] and they can patient patient up between 630 and 7p. SW notified RN, physician office secretary and faxed negative COVID test to [facility]. SW also called [facility] and notified them of fiber picker time. Plan: [facility] under intermediate level of care on a convalescent stay on pending Medicaid. Pending Medicaid number is [id number]. Sasha FREIRE MSW
[2020-04-09] MEDS: Tamsulosin HCl 0.4 MG Capsule PO (16:59)
[2020-04-09 17:20] LABS: Bedside Glucose 245 mg/dL (70-110)
--- NOTE | 2020-04-09 18:08 | NURSING ---
report given to [facility] to nurse with no questions. pt to eat before going. all belongings packed and ready for dc.
--- NOTE | 2020-04-09 19:54 | NURSING ---
This RN [facility] at 1944. Pt discharged w/ belongings to [facility]. ALIREZA Trujillo.
== END 2020-04-09 19:45 | disposition skilled nursing facility (03) | DRG 698 ==
LOC: ED 20:35 → PCU 20:55
PROVIDERS: Internal Medicine; Internal Medicine Nephrology; Surgery; Admitting Provider Hospitalist; Emergency Provider Emergency Medicine; PCP Family Medicine; Referring Provider Hospitalist; Visit Provider Internal Medicine
PROC: 02HV33Z Insertion of Infusion Device into Superior Vena Cava, Percutaneous Approach (ICD-10-PCS; principal; 2020-03-31 13:45)
DX: N04.9 Nephrotic syndrome with unspecified morphologic changes (principal); J18.9 Pneumonia, unspecified organism; Z68.41 Body mass index [BMI] 40.0-44.9, adult; L97.909 Non-pressure chronic ulcer of unspecified part of unspecified lower leg with unspecified severity; E87.2 Acidosis; N18.6 End stage renal disease; N17.9 Acute kidney failure, unspecified; E87.5 Hyperkalemia; E11.649 Type 2 diabetes mellitus with hypoglycemia without coma; E11.22 Type 2 diabetes mellitus with diabetic chronic kidney disease; I25.2 Old myocardial infarction; E11.65 Type 2 diabetes mellitus with hyperglycemia; I10 Essential (primary) hypertension; I25.10 Atherosclerotic heart disease of native coronary artery without angina pectoris; E78.5 Hyperlipidemia, unspecified; E66.01 Morbid (severe) obesity due to excess calories; D63.1 Anemia in chronic kidney disease; I87.8 Other specified disorders of veins; D50.9 Iron deficiency anemia, unspecified; Z86.718 Personal history of other venous thrombosis and embolism; Z95.5 Presence of coronary angioplasty implant and graft; Z86.73 Personal history of transient ischemic attack (TIA), and cerebral infarction without residual deficits
CPT/HCPCS: 36415; 71045; 76000; 80048; 80069; 80307; 80320; 82274; 82570; 82575; 82607; 82728; 82746; 82962; 83010; 83540; 83550; 83605; 83615; 83880; 84132; 84156; 84166; 84484; 85014; 85018; 85025; 85027; 85045; 86335; 86704; 86706; 86850; 86900; 86901; 86920; 86922; 87340; 87426; 87449; 87635; 90937; 93005; 93970; 94640; 97110; 97116; 97162; 97166; 97530; 97535; 97802; 97803; 99285; J1756; J7030; J7040; J7050; P9016; A4216; C1750; G0257; G0480; J0610; J0696; J1940; J2405; J2916; Q5106; U0002

== ENCOUNTER 2020-05-13 23:58 | Emergency (ER) | payer MEDICAID, SELFPAY ==
[2020-03-31 12:47] VITALS: BMI 41.5
[2020-05-14 00:01] VITALS: BP 163/74; PULSE 87; RESP 17; TEMP 36.6; O2SAT 92; BMI 39.5
--- NOTE | 2020-05-14 00:02 | ED.VIS.GEN ---
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 He has been sick for 2 weeks, yesterday was his last day of quarantine. He still feels very malaised and achy, he is still has a mild cough but is not short of breath or having GI symptoms including nausea/vomiting. He had labs around 7 AM this morning, and as a result of them, he is sent to the ER around midnight in order to receive emergent dialysis according to paramedics. No one else has called about this patient. Patient states he sees Dr. Sanford for nephrology. More than 1 month ago, he was admitted to the hospital and needed dialysis 3 times but then his kidneys were doing better and they were going to take out his Port-A-Cath, but then he contracted COVID-19 and it was left in. His labs show worsening BUN along with a improving creatinine, today BUN 113 and creatinine 3.1. 10 days ago his BUN was 70 with a creatinine of 4.0. At this time, his potassium is within normal limits of 4.7. His blood sugar today is 463, but he has been on steroids as part of his treatment for COVID-19. He is on insulin for diabetes. - Past Medical History (1) Chronic kidney disease (CKD) Status: Chronic (2) Iron deficiency anemia Status: Chronic (3) Nephrotic syndrome Status: Chronic (4) Atherosclerotic heart disease of [place] coronary artery without angina pectoris Status: Chronic Comment: PCI-JEAN CARLOS-CX 06/17/15 (5) DVT of lower extremity (deep venous thrombosis) Status: Chronic Comment: left (6) Essential (primary) hypertension Status: Chronic (7) History of coronary artery stent placement Status: Chronic Comment: PCI-JEAN CARLOS-CX 06/17/15 (8) Hyperlipidemia Status: Chronic (9) Vitreous hemorrhage, bilateral Status: Chronic (10) TIA (transient ischemic attack) Status: Resolved Past Medical History - Allergies and Home Meds Allergies/Adverse Reactions: Allergies escitalopram [From Lexapro] Allergy (Verified 03/03/20 14:29) Unknown sertraline [From Zoloft] Allergy (Verified 03/03/20 14:29) Unknown lisinopril Adverse Reaction (Severe, Verified 10/14/20 14:29) Cough Primary Care Physician: Gene Miller MD [Primary Care Provider] - Doctors: Juvenal - Nephrology Surgical History: angioplasty, herniorrhaphy Lives: [facility] Smoking Status: Never smoker - Family History Maternal Family History: Family History (Last Reviewed 03/29/20 @ 21:[address] Joe Montaño MD) Father blood clot Sister CVA (cerebral vascular accident) Mother Diabetes Family History: Reports: Diabetes Paternal Family History: Family History (Last Reviewed 03/29/20 @ 21:[address] Joe Montaño MD) Father blood clot Sister CVA (cerebral vascular accident) Mother Diabetes Family History: Reports: - - dvt in leg Sibling Family History: Family History (Last Reviewed 03/29/20 @ 21:[address] Joe Montaño MD) Father blood clot Sister CVA (cerebral vascular accident) Mother Diabetes Family History: Reports: - - brother with cad, prostate cancer possible kidney or liver problem.sister with stroke Review of Systems General: Reports: Malaise. Denies: Chills, Fever, Sweats Eyes: Denies: Visual changes - bilaterally, Diplopia ENT: Denies: Rhinorrhea, Sore throat Cardiovascular: Denies: Chest pain, Palpitations Respiratory: Reports: Cough. Denies: Dyspnea, Dyspnea on exertion Gastrointestinal: Denies: Abdominal pain, Nausea, Vomiting, Diarrhea, Melena, Hematochezia Genitourinary: Denies: Dysuria, Hematuria, Frequency Musculoskeletal: Reports: Myalgias, Swelling - X1-2 months, improved in the past week or 2 compared with before, no longer including his abdomen. Denies: Back pain, Extremity Pain Skin: Denies: Rash, Wounds Neurological: Denies: Headache, Weakness, Numbness Physical Exam Inital Vital Signs reviewed: Yes General: Well nourished, Well developed, No Acute Distress Head: Normocephalic, Atraumatic Eyes: Perrl, EOMI ENT: Moist mucous membranes, No rhinorrhea Neck: Supple, Nontender Cardiovascular: Regular rate, Regular rhythm, No murmurs Respiratory: No distress, CTA bilaterally, Chest nontender Abdomen: Soft, Nontender, Nondistended, Normal bowel sounds Back: Nontender, Normal Inspection Extremities: Nontender, Edema - Lateral lower extremities to distal thighs, with signs of chronic stasis dermatitis, no acute tenderness Skin: Normal color, No rash, No Trauma Neurological: Alert, Oriented x3, Cranial nerves II-XII grossly intact, Normal Strength, Normal Sensation Psychological: Normal affect, Normal Mood Diagnostic/Tx/Re-eval - Medical Decision Making Patient's labs are noted, and I do not think based on these of the patient needs emergent dialysis. He does not have hyperkalemia, he does not have symptoms of uremia, and he is not having any symptoms of acute fluid overload. I discussed all this with Dr. Sanford, his cinder pit worker. She was unaware that the patient was being sent to the emergency department, and agrees that he does not require emergent dialysis nor admission. I am having staff discussed with the correction, if they want me to talk to the physician wildlife biostation research ecologist I would be more than happy, prior to sending this patient back to [facility]. The patient is in agreement with this plan as well. He is thankful for the time we spent with him. ED Disposition - Plan for ED Patient: Disposition: Home or Assisted Living Diagnosis: Chronic kidney disease (CKD) Instructions: ED Chronic Kidney Disease (CKD) Referrals: Gene Miller MD [Primary Care Provider] - Kandis Sanford DO [STAFF PHYSICIAN] - 3-5 Days
[2020-05-14 03:58] VITALS: BP 144/70; PULSE 80; RESP 16; O2SAT 91
== END 2020-05-14 03:59 | disposition home or self-care (01) ==
LOC: ED 05-14 00:18
PROVIDERS: Emergency Provider Emergency Medicine; PCP Family Medicine
DX: I12.9 Hypertensive chronic kidney disease with stage 1 through stage 4 chronic kidney disease, or unspecified chronic kidney disease (principal); N18.9 Chronic kidney disease, unspecified; E11.22 Type 2 diabetes mellitus with diabetic chronic kidney disease; I25.10 Atherosclerotic heart disease of native coronary artery without angina pectoris; E78.5 Hyperlipidemia, unspecified; Z95.5 Presence of coronary angioplasty implant and graft; Z86.73 Personal history of transient ischemic attack (TIA), and cerebral infarction without residual deficits; Z79.4 Long term (current) use of insulin; Z79.899 Other long term (current) drug therapy
CPT/HCPCS: 99284

== ENCOUNTER → 2020-10-26 14:48 | Outpatient (CLI) | payer MEDICARE, MEDICAID, SELFPAY ==
[2020-10-26 17:44] LABS: Absolute Lymphocyte Count 0.81 X10^3/uL (0.83-4.51); Absolute Neutrophil Count 5.5 X10^3/uL (2.0-7.7); Basophil# 0.06 X10^3/uL; Basophil% 0.8 % (0-1); Eosinophil# 0.43 X10^3/uL; Eosinophils% 5.6 % (0-5); Hematocrit 30.7 % (40-54); Hemoglobin 9.7 g/dL (13.0-16.5); Lymphocyte # 0.81 X10^3/ul (0.83-4.51); Lymphocyte % 10.5 % (19-41); Mean Corp Hgb Conc 31.6 g/dL (32-36); Mean Corpuscular Hgb 25.7 pg (27.0-32.0); Mean Corpuscular Volume 81.2 fL (80-94); Mean Platelet Vol. 10.1 fl (6.2-12.0); Monocyte% 11.7 % (0-10); NRBC Flagged by Analyzer 0 % (0-5); Neutrophil # 5.48 X10^3/uL (2.7-7.7); Neutrophil % 71.3 % (47-70); Platelet Count 156 K/mm3 (150-450); RBC Distribution Width CV 15.3 % (11.6-14.6); RBC Distribution Width SD 44.4 fl (35.1-43.9); Red Blood Count 3.78 M/mm3 (4.6-6.2); White Blood Count 7.7 K/mm3 (4.4-11.0)
[2020-10-26 18:16] LABS: Vitamin D,25 Hydroxy 48.4 ng/mL
[2020-10-26 18:18] LABS: ALB/GLOB Ratio 0.9 RATIO (0.9-2.4); AST(SGOT) 23 U/L (15-37); Alanine Aminotransfer ALT/SGPT 18 U/L (16-61); Albumin, Serum 3.3 g/dL (3.2-5.0); Alkaline Phosphatase 128 U/L (45-117); Anion Gap 7 (5-15); BUN 60 mg/dL (7-18); BUN/Creat Ratio 14.4 RATIO (10-20); Calcium,Total 8.4 mg/dL (8.5-10.1); Chloride 114 mmol/L (98-107); Cholesterol 163 mg/dL (200); Creatinine, Serum 4.18 mg/dL (0.70-1.30); EST Glomerular Filtration Rate 15 mL/min (>60); Est Glom Filt Rate - Afr Amer 19 mL/min (>60); Globulin 3.8 g/dL (2.2-4.2); Glucose 103 mg/dL (74-106); High Density Lipoprotein 31 mg/dL; Phosphorus 3.3 mg/dL (2.5-4.9); Potassium 4.2 mmol/L (3.5-5.1); Protein, Total 7.1 g/dL (6.4-8.2); Sodium Level 142 mmol/L (136-145); Triglycerides 173 mg/dL; Very Low Density Lipoprotein 35 mg/dL (5-40)
[2020-10-26 18:25] LABS: Hemoglobin A1c 5.1 % (3.8-5.6)
[2020-10-27 07:44] LABS: PTHIN 202.9 pg/mL (18.4-80.1)
[2020-10-29 16:43] LABS: Vitamin D 1,25-Dihydroxy 32.8 pg/mL (19.9-79.3)
== END ==
PROVIDERS: PCP Family Medicine; Visit Provider Family Medicine
DX: E11.65 Type 2 diabetes mellitus with hyperglycemia (principal); E11.22 Type 2 diabetes mellitus with diabetic chronic kidney disease; N18.4 Chronic kidney disease, stage 4 (severe)
CPT/HCPCS: 36415; 80053; 80061; 82306; 82652; 83036; 83970; 84100; 85025

== ENCOUNTER 2020-11-20 06:00 | Inpatient (IN) | payer MEDICARE, MEDICAID, SELFPAY ==
[2020-11-20] VITALS (15 sets, daily range): BP systolic 133–165; BP diastolic 69–84; PULSE 73–87; RESP 14–25; TEMP 36.2–37.1; O2SAT 95–99; BMI 40.8; BMI 39.9
--- NOTE | 2020-11-20 06:20 | RAD_ITS ---
HISTORY: sob. TECHNIQUE: XR Chest 1 View. # of images incl. paperwork: 1. COMPARISON: 03/29/2020. FINDINGS: CARDIOMEDIASTINAL STRUCTURES: Cardiac silhouette not enlarged. Mediastinal contour unremarkable. LUNGS: Diffuse interstitial opacities. PLEURA: Mild bilateral pleural effusions. OSSEOUS STRUCTURES: Degenerative change. RAD/Chest 1 View (Portable) IMPRESSION: Mild pleural effusions with mild pulmonary edema. at 0953 Reported and signed by: Dee Dee Coleman MD Electronically Signed: Dee Dee Coleman MD at 9:51 EDT Tel , Service support ,
--- NOTE | 2020-11-20 06:20 | EKG12_ITS ---
Test Reason : WEAKNESS Blood Pressure : / mmHG Vent. Rate : 080 BPM Atrial Rate : 080 BPM P-R Int : 232 ms QRS Dur : 108 ms QT Int : 410 ms P-R-T Axes : 053 033 044 degrees QTc Int : 472 ms Somatic Motion Artifact Sinus rhythm with 1st degree A-V block Low Voltage QRS (Limb Leads) Confirmed by JOSUE CASILLAS, TALITA ([id number]), editor map MARY ELLEN DUNBAR ([id number]) on 11/24/2020 1:43:14 PM Referred By: BILL Confirmed By:TALITA SALAS MD
--- NOTE | 2020-11-20 06:21 | EDS_ITS ---
HPI History of Present Illness Chief Complaint: Weakness Detail of Chief Complaint: Short of breath, generalized weakness Informant: patient and EMS Onset/Context/Timing Onset: Days Context: Gradual Onset Current Severity: Mild Maximum Severity: Moderate Narrative Narrative: Patient presents secondary to increasing shortness of breath. He initially states he became short of breath a couple hours ago, but then states he has not slept the last several days because whenever he tries to lay down flat to sleep he cannot breathe. He does have a history of CHF and does feel like he is more swollen. He does take Lasix regularly. He does believe the dose was recently adjusted. Patient denies chest pain. He had mild cough and congestion. No fever or chills. [facility] Medical History (Updated 11/20/20 @ 08:[address] Kendra Kim MD) Atherosclerotic heart disease of [place] coronary artery without angina pectoris Chronic kidney disease (CKD) DVT of lower extremity (deep venous thrombosis) (09/2018) Essential (primary) hypertension Hyperlipidemia Obesity (BMI 30.0-34.9) Old inferior wall myocardial infarction Problem with dialysis access Tear of lateral meniscus of left knee Tear of medial meniscus of left knee TIA (transient ischemic attack) (09/19/18) Type 2 diabetes mellitus Vitreous hemorrhage, bilateral Home Medications nitroglycerin 0.4 mg SUBLINGUAL Q5M PRN 06/30/15 [History Last Taken 09/30/17 0.4 MG] insulin degludec 42 unit SQ DAILY 02/20/17 [History Last Taken 10/15/18 07:15] aspirin 81 mg PO DAILY #0 07/09/18 [Rx Last Taken 10/15/18 07:00] amlodipine 10 mg tablet 10 mg PO DAILY 02/10/20 [History Last Taken Unknown] cholecalciferol (vitamin D3) 1,250 mcg (50,000 unit) capsule 1,250 mcg PO QWEEK 02/10/20 [History Last Taken 11/15/20] cyanocobalamin (vitamin B-12) 1,000 mcg capsule 1,000 mcg PO DAILY 02/10/20 [History Last Taken Unknown] guanfacine 1 mg tablet 1 mg PO DAILY 02/10/20 [History Last Taken Unknown] hydralazine 100 mg PO TID tab 04/09/20 [Rx Last Taken Unknown] insulin lispro See Protocol SC ACHS insuln.pen 04/09/20 [Rx Last Taken Unknown] carvedilol [Coreg] 12.5 mg PO BID 11/20/20 [History Last Taken Unknown] ferrous sulfate 325 mg PO BID 11/20/20 [History Last Taken Unknown] furosemide 40 mg PO BID@1000,1800 11/20/20 [History Last Taken Unknown] Allergy/AdvReac Type Severity Reaction Status Date / Time escitalopram [From Lexapro] Allergy Unknown Verified 11/20/20 06:01 sertraline [From Zoloft] Allergy Unknown Verified 11/20/20 06:01 lisinopril AdvReac Severe Cough Verified 11/20/20 06:01 Family History Father blood clot Sister CVA (cerebral vascular accident) Mother Diabetes Surgical History H/O abdominal surgery History of coronary artery stent placement (06/17/15) Social History Smoking Status: Former smoker alcohol intake: current alcohol intake frequency: a few times a week Alcohol type: beer substance use type: does not use caffeine: Yes Type: coffee Number of servings: 3 what type of physical activity do you participate in: none seatbelt use: always do you feel safe at home: Yes ROS ROS ED Constitutional Constitutional ED: Denies chills or fever(s) Eyes Eyes: Denies change in vision ENT ENT ED: Denies sore throat Cardiovascular Cardiovascular: Denies chest pain Respiratory/Chest Respiratory/Chest: Reports cough and dyspnea Gastrointestinal Gastrointestinal: Denies abdominal pain, diarrhea, nausea or vomiting Genitourinary Genitourinary ED: Denies dysuria Musculoskeletal Musculoskeletal: Denies back pain Integumentary Denies rash Neurologic Neurologic: Reports weakness; Denies headache(s) Psychiatric Psychiatric: Denies anxiety or depression Endocrine Endocrinology: Denies polydipsia or polyuria Allergic/Immunologic Allergic/Immunologic ED: Denies urticaria EXAM Physical Exam Const Vital Signs: 11/20/20 06:01 11/20/20 06:03 11/20/20 06:58 Temperature 97.2 F L 97.2 F L 98.2 F Temperature Source Temporal Temporal Temporal Pulse Rate 81 80 78 Respiratory Rate 25 H 25 H 14 Blood Pressure 165/75 H 151/84 H Blood Pressure Mean 105 106 Pulse Ox 95 95 96 Oxygen Delivery Method Room Air Room Air Room Air Oxygen Flow Rate (L/min) 11/20/20 07:56 11/20/20 08:41 Temperature 98.1 F 98.4 F Temperature Source Temporal Temporal Pulse Rate 73 76 Respiratory Rate 17 17 Blood Pressure 152/78 H 135/72 H Blood Pressure Mean 102 93 Pulse Ox 98 98 Oxygen Delivery Method Nasal Cannula Nasal Cannula Oxygen Flow Rate (L/min) 2 2 Positive well nourished and well developed General Appearance ED: well developed HEENT Reports normocephalic and head/scalp atraumatic Eyes PERRL and EOMs intact bilaterally Neck supple Chest Wall inspection of chest normal and palpation of chest normal Resp Resp Narrative: Slight expiratory wheeze. Decreased air movement. Auscultation: diminished lung sounds Cardio regular rate and regular rhythm GI normal to inspection, nondistended, normoactive bowel sounds Palpation: soft Extremity Extremity Narrative: Chronic venous skin changes bilateral lower extremities. General Extremety ED: Yes edema General Extremity: edema Neuro oriented x3 Sensorium / Orientation: alert Psych mental status grossly normal MDM MDM MDM Narrative Medical decision making narrative: EKG, chest x-ray, labs were obtained. Lab Data Attestation: I reviewed the patient's lab results. Labs: Laboratory Results - last 24 hr 11/20/20 11/20/20 11/20/20 06:15 06:15 06:15 WBC 8.7 RBC 3.15 L Hgb 8.4 L Hct 27.1 L MCV 86.0 MCH 26.7 L MCHC 31.0 L RDW Std Deviation 50.2 H RDW Coeff of Lina 16.0 H Plt Count 254 MPV 10.8 Immature Gran % (Auto) 0.300 Neut % (Auto) 80.0 H Lymph % (Auto) 7.9 L [place] % (Auto) 7.9 Eos % (Auto) 3.2 Baso % (Auto) 0.7 Absolute Neuts (auto) 7.0 Absolute Lymphs (auto) 0.69 L Nucleated RBC % 0 Sodium 138 Potassium 5.2 H Chloride 111 H Carbon Dioxide 18.0 L Anion Gap 9 BUN 72 H Creatinine 4.92 H Estim Creat Clear Calc 14.97 Est GFR (MDRD) Af Amer 15 L Est GFR (MDRD) Non-Af 13 L BUN/Creatinine Ratio 14.6 Glucose 110 H Calcium 8.3 L Troponin I High Sens 13.5 B-Natriuretic Peptide 455.1 H Radiography Chest X-Ray - ED: 1 View, Read by ED Physician and - (Vascular congestion with small left pleural effusion.) EKG Initial EKG: Attestation: I personally reviewed and interpreted this EKG as follows: Interpretation: Sinus Rhythm (Sinus at 80 with no acute ischemia.) Treatment and Re-Evaluation Comments:: Right upper mitral rotation does reveal some vascular congestion. BNP is elevated at 455. Unfortunately renal function is worsening and today BUN and creatinine up to 72 and 4.92 respectively. Patient states his Lasix dose was recently decreased because of worsening renal function. I spoke with his critical care unit nurse, Dr. Kandis Sanford. She recommended giving the patient IV Lasix twice a day to treat his CHF and they will deal with the renal function as needed. 40 mg of IV Lasix has been ordered. Hospitalist is on page for admission. Discharge Plan Triage Chief Complaint: Weakness ED Provider: Kendra Kim Dx/Rx/DC Orders Clinical Impression: CHF exacerbation Prescriptions: No Action nitroglycerin 0.4 MG tablet 0.4 mg SUBLINGUAL Q5M PRN (Reason: Chest Pain) RF: 0 insulin degludec 200 UNIT/ML insulin pen 42 unit SQ DAILY RF: 0 aspirin 81 MG tablet 81 mg PO DAILY Qty: 0 RF: 0 hydralazine 50 MG tablet 100 mg PO TID RF: 0 insulin lispro 100 UNIT/ML insulin pen See Protocol unit SC ACHS RF: 0 carvedilol [Coreg] 25 mg tablet 12.5 mg PO BID RF: 0 furosemide 80 MG tablet 40 mg PO BID@1000,1800 RF: 0 ferrous sulfate 325 MG tablet 325 mg PO BID RF: 0 amlodipine [Norvasc] 10 mg tablet 10 mg PO DAILY RF: 0 guanfacine 1 mg tablet 1 mg PO DAILY RF: 0 cholecalciferol (vitamin D3) 1,250 mcg (50,000 unit) capsule 1,250 mcg PO QWEEK RF: 0 cyanocobalamin (vitamin B-12) 1,000 mcg capsule 1,000 mcg PO DAILY RF: 0 Primary Care Provider: Gene Miller Referrals: Gene Miller MD [Primary Care Provider] - Disposition Disposition: Acute Care Hospital [facility]
[2020-11-20 06:28] LABS: Absolute Lymphocyte Count 0.69 X10^3/uL (0.83-4.51); Basophil# 0.06 X10^3/uL; Basophil% 0.7 % (0-1); Eosinophil# 0.28 X10^3/uL; Eosinophils% 3.2 % (0-5); Hematocrit 27.1 % (40-54); Hemoglobin 8.4 g/dL (13.0-16.5); Lymphocyte # 0.69 X10^3/ul (0.83-4.51); Lymphocyte % 7.9 % (19-41); Mean Corpuscular Hgb 26.7 pg (27.0-32.0); Mean Platelet Vol. 10.8 fl (6.2-12.0); Monocyte# 0.69 X10^3/uL; Monocyte% 7.9 % (0-10); NRBC Flagged by Analyzer 0 % (0-5); Neutrophil # 6.95 X10^3/uL (2.7-7.7); Platelet Count 254 K/mm3 (150-450); RBC Distribution Width SD 50.2 fl (35.1-43.9); Red Blood Count 3.15 M/mm3 (4.6-6.2); White Blood Count 8.7 K/mm3 (4.4-11.0)
[2020-11-20 06:47] LABS: Anion Gap 9 (5-15); BUN 72 mg/dL (7-18); BUN/Creat Ratio 14.6 RATIO (10-20); Calcium,Total 8.3 mg/dL (8.5-10.1); Chloride 111 mmol/L (98-107); Creatinine, Serum 4.92 mg/dL (0.70-1.30); EST Glomerular Filtration Rate 13 mL/min (>60); Est Glom Filt Rate - Afr Amer 15 mL/min (>60); Estimated Creatinine Clearance 14.97 ml/min; Glucose 110 mg/dL (74-106); Potassium 5.2 mmol/L (3.5-5.1); Sodium Level 138 mmol/L (136-145); Troponin-I HS 13.5 pg/mL (3.0-78.5)
--- NOTE | 2020-11-20 07:03 | ED.RN ---
Son is aware patient is here and waiting on results. He is also aware there is already a female friend here as his visitor.
[2020-11-20 08:26] LABS: BNP,B-Type NATRIURETIC PEPTIDE 455.1 pg/mL (0-100)
[2020-11-20] MEDS: Furosemide 40 MG/4 ML Vial IV ×2 (09:26→17:35)
--- NOTE | 2020-11-20 11:05 | ECHOCS_ITS ---
Reason For Study: CHF Procedure This was a 2D Doppler, Color Flow transthoracic echocardiogram. The study was technically difficult. Contrast injection was performed. Exam performed portable in patient room. Left Ventricle Normal left ventricle. The estimated ejection fraction is EF 55-60 %. Right Ventricle Normal right ventricle. Normal systolic function. Atria The left atrium is moderately enlarged. Mitral Valve The mitral valve is structurally normal. No prolapse or stenosis seen. Mild (1+) mitral valve insufficiency. Tricuspid Valve Normal tricuspid valve. Mild (1+) tricuspid valve insufficiency. Aortic Valve Normal aortic valve. Pulmonic Valve The pulmonic valve is not well visualized. Great Vessels Normal aortic root. Pericardium/Pleural Small pericardial effusion. Medication Diluted definity 2ml given slow IV push to enhance endocardial definition. MMode/2D Measurements & Calculations LVIDd: 4.8 cm IVSd: 1.8 cm Ao root diam: 3.2 cm LVIDs: 3.3 cm LVPWd: 1.5 cm LA dimension: 5.0 cm FS: 31.5 % LAV(MOD-bp): 82.3 ml LA A4 area: 24.4 cm2 RA A4 area: 20.3 cm2 LAV(MOD-bp) Indexed: 35.5 ml/m2 LAV(MOD-sp2): 76.8 ml LAV(MOD-sp4): 85.1 ml Time Measurements MV dec time: 0.13 sec Doppler Measurements & Calculations MV E max david: 112.8 cm/sec Lat Peak E' David: 8.4 cm/sec Med Peak E' David: 6.8 cm/sec MV A max david: 92.6 cm/sec E/E' lat: 13.4 E/E' med: 16.6 MV E/A: 1.2 MV V2 max: 142.7 cm/sec MV P1/2t max david: 142.7 cm/sec Ao V2 max: 92.0 cm/sec MV max P.1 mmHg MV P1/2t: 65.5 msec Ao max P.4 mmHg MV V2 mean: 71.6 cm/sec MV dec slope: 637.7 cm/sec2 MV mean P.5 mmHg MV V2 VTI: 31.8 cm MVA(P1/2t): 3.4 cm2 LV V1 max: 83.3 cm/sec PA V2 max: 97.7 cm/sec TR max david: 305.4 cm/sec LV V1 max P.8 mmHg TR max P.3 mmHg ECHO/Echo Complete W/ Contrast Interpretation Summary The estimated ejection fraction is EF 55-60 %. Small pericardial effusion with no haemodynamic comprimize No significant change from prior echo in 12/2019 Ordering Physician: Wale Adamson Referring Physician: Gene Miller Performed By: Garrett Villasenor RCS
[2020-11-20 12:26] LABS: Bedside Glucose 79 mg/dL (70-110)
--- NOTE | 2020-11-20 12:35 | CASEMGMT ---
ALIREZA MAYER assessment: Face to Face with patient for initial transition planning/care coordination assessment. RN LEYLA introduced self and role at [facility], pt voices understanding and consents to assessment. Pt is sitting up in bed in no distress on 2L nc. Pt is A/Ox4 and answers all questions appropriately. Care providers, pharmacy, and demographics verified. Presentation: Pt c/o weakness, bilat edema, SOB that is worsening Admitting dx: CHF, CRF PCP: Paul Specialists: Lisa, cardio; Juvenal nephmarleni Preferred Pharmacy: [facility] Insurance: [employer] Prescription Benefit: [employer] Living Will/HPOA: Pt states has LW/HPOA and is aware that it's not on file at [facility]. Pt states, Jono Patel, is HPOA. LNOK: Eber Jimenez, son Living Arrangements: Pt states lives with sig other, Edel Pollard, in 1 story home with 4 steps in and states no concerns at home. Pt states is independent with ADL's. Transportation: Pt states sig other drives and states no transportation concerns. DME/HHC: Pt states has the following DME: cane, raised toilet seat, grab bars, shower chair, and lift into home(for sig other). Pt states no need for any further DME. Pt provided list of local in-network DME providers as he is currently on 2L nc. Pt states has been to [facility](d/c 10/19/20-[facility]) and was supposed to be set up with HHC at that time but no one ever came/called. Pt provided list of local in-network HHC agencies and is interested in HHC at d/c. Pt states no concerns with going home at time of discharge. Pt is on disability. Pt states does not smoke cigarettes or drink ETOH. Pt states no further concerns/needs. CM to follow for PT/OT evals, home oxygen need and any further discharge planning/needs. Advised pt to ask for CM if any further questions/concerns/needs arise, voices understanding. Pt Goal: Home Plan: Home, pending PT/OT evals, home oxygen need. [place] ALIREZA MAYER
[2020-11-20 13:03] LABS: Troponin-I HS 13.7 pg/mL (3.0-78.5)
--- NOTE | 2020-11-20 14:02 | HP.PCM.HOS_ITS ---
HPI - General General Date of Admission: 11/20/20 Date of Service: 11/20/20 Chief Complaint: shortness of breath HPI Narrative BRI HERNANDEZ, is a 65 M who presents increasing shortness of breath. Patient has been having orthopnea for some time now but his shortness of breath became much worse prior to arrival. His orthopnea is gradually gotten worse where he had to sit more vertical while sleeping. He does endorse that his legs have gotten more swollen. He is unsure of his weight has gone up. He is recently had his furosemide cut back due to worsening kidney function. Patient presented to the emergency room and had what appeared to be CHF exacerbation. Dr. Sanford was contacted through the emergency room who advised furosemide and admission. Patient had been on dialysis temporarily receiving only roughly 3 treatments and his dialysis catheter was subsequently removed. [facility] Medical History (Updated 11/20/20 @ 14:[address] Wale Adamson, ) Atherosclerotic heart disease of [place] coronary artery without angina pectoris Chronic kidney disease (CKD) DVT of lower extremity (deep venous thrombosis) (09/2018) Essential (primary) hypertension Hyperlipidemia Obesity (BMI 30.0-34.9) Old inferior wall myocardial infarction Problem with dialysis access Tear of lateral meniscus of left knee Tear of medial meniscus of left knee TIA (transient ischemic attack) (09/19/18) Type 2 diabetes mellitus Vitreous hemorrhage, bilateral Home Medications nitroglycerin 0.4 mg SUBLINGUAL Q5M PRN 06/30/15 [History Last Taken 09/30/17 0.4 MG] insulin degludec 42 unit SQ DAILY 02/20/17 [History Last Taken 10/15/18 07:15] aspirin 81 mg PO DAILY #0 07/09/18 [Rx Last Taken 10/15/18 07:00] amlodipine 10 mg tablet 10 mg PO DAILY 02/10/20 [History Last Taken Unknown] cholecalciferol (vitamin D3) 1,250 mcg (50,000 unit) capsule 1,250 mcg PO QWEEK 02/10/20 [History Last Taken 11/15/20] cyanocobalamin (vitamin B-12) 1,000 mcg capsule 1,000 mcg PO DAILY 02/10/20 [History Last Taken Unknown] guanfacine 1 mg tablet 1 mg PO DAILY 02/10/20 [History Last Taken Unknown] hydralazine 100 mg PO TID tab 04/09/20 [Rx Last Taken Unknown] insulin lispro See Protocol [place] ACHS insuln.pen 04/09/20 [Rx Last Taken Unknown] carvedilol [Coreg] 12.5 mg PO BID 11/20/20 [History Last Taken Unknown] ferrous sulfate 325 mg PO BID 11/20/20 [History Last Taken Unknown] furosemide 40 mg PO BID@1000,1800 11/20/20 [History Last Taken Unknown] Allergy/AdvReac Type Severity Reaction Status Date / Time escitalopram [From Lexapro] Allergy Unknown Verified 11/20/20 06:01 sertraline [From Zoloft] Allergy Unknown Verified 11/20/20 06:01 lisinopril AdvReac Severe Cough Verified 11/20/20 06:01 Family History Father blood clot Sister CVA (cerebral vascular accident) Mother Diabetes Surgical History H/O abdominal surgery History of coronary artery stent placement (06/17/15) Social History Smoking Status: Former smoker alcohol intake: current alcohol intake frequency: a few times a week Alcohol type: beer substance use type: does not use caffeine: Yes Type: coffee Number of servings: 3 what type of physical activity do you participate in: none seatbelt use: always do you feel safe at home: Yes ROS ROS Narrative Constipation. All review of systems were negative except as mentioned above in the history of present illness and the other review of systems. Denies any sick contacts. Has been vaccinated against COVID-19 Vital Signs Vital Signs Vital Signs: 11/20/20 06:01 11/20/20 06:03 11/20/20 06:58 Temperature 36.2 C L 36.2 C L 36.8 C Temperature Source Temporal Temporal Temporal Pulse Rate 81 80 78 Respiratory Rate 25 H 25 H 14 Blood Pressure 165/75 H 151/84 H Blood Pressure Mean 105 106 Blood Pressure Source Blood Pressure Position Blood Pressure Location Pulse Ox 95 95 96 Oxygen Delivery Method Room Air Room Air Room Air Oxygen Flow Rate (L/min) 11/20/20 07:56 11/20/20 08:41 11/20/20 09:23 Temperature 36.7 C 36.9 C 37.0 C Temperature Source Temporal Temporal Temporal Pulse Rate 73 76 76 Respiratory Rate 17 17 18 Blood Pressure 152/78 H 135/72 H 133/69 H Blood Pressure Mean 102 93 90 Blood Pressure Source Blood Pressure Position Blood Pressure Location Pulse Ox 98 98 98 Oxygen Delivery Method Nasal Cannula Nasal Cannula Room Air Oxygen Flow Rate (L/min) 2 2 11/20/20 10:00 11/20/20 12:00 Temperature 36.6 C Temperature Source Oral Pulse Rate 80 83 Respiratory Rate 20 H Blood Pressure 154/75 H Blood Pressure Mean 101 Blood Pressure Source Monitor Blood Pressure Position Semi-Fowlers Blood Pressure Location Left Arm Pulse Ox 97 Oxygen Delivery Method Nasal Cannula Oxygen Flow Rate (L/min) 2 Weight Weight: 122.1 kg Body Mass Index (BMI) 39.9 Physical Exam Const alert and no apparent distress Constitutional Narrative: on oxygen General Appearance: cooperative HEENT normocephalic, head/scalp atraumatic and hearing grossly normal bilaterally Eyes Eyes Narrative: no icterus Neck Neck Narrative: +JVD Resp normal respiratory effort, no use of accessory muscles and clear to auscultation bilaterally Cardio regular rate, regular rhythm, S1 normal heart sound and S2 normal heart sound GI normal to inspection, nondistended, normoactive bowel sounds, non-tender and non-distended Extremity Extremity Narrative: bilateral LE edema. Skin Skin Narrative: Lymphedematous changes to the lower extremities bilaterally Neuro moves all extremities and no focal motor deficits Sensorium / Orientation: awake and alert Psych affect normal Results Lab / Micro Data Attestation: I reviewed the patient's lab results. Result Diagrams: 11/20/20 06:15 11/20/20 06:15 Labs: Laboratory Results - last 24 hr 11/20/20 11/20/20 11/20/20 06:15 06:15 06:15 WBC 8.7 RBC 3.15 L Hgb 8.4 L Hct 27.1 L MCV 86.0 MCH 26.7 L MCHC 31.0 L RDW Std Deviation 50.2 H RDW Coeff of Lina 16.0 H Plt Count 254 MPV 10.8 Immature Gran % (Auto) 0.300 Neut % (Auto) 80.0 H Lymph % (Auto) 7.9 L [place] % (Auto) 7.9 Eos % (Auto) 3.2 Baso % (Auto) 0.7 Absolute Neuts (auto) 7.0 Absolute Lymphs (auto) 0.69 L Nucleated RBC % 0 Sodium 138 Potassium 5.2 H Chloride 111 H Carbon Dioxide 18.0 L Anion Gap 9 BUN 72 H Creatinine 4.92 H Estim Creat Clear Calc 14.97 Est GFR (MDRD) Af Amer 15 L Est GFR (MDRD) Non-Af 13 L BUN/Creatinine Ratio 14.6 Glucose 110 H Calcium 8.3 L Troponin I High Sens 13.5 B-Natriuretic Peptide 455.1 H POC Glucose 11/20/20 11/20/20 12:06 12:07 WBC RBC Hgb Hct MCV MCH MCHC RDW Std Deviation RDW Coeff of Lina Plt Count MPV Immature Gran % (Auto) Neut % (Auto) Lymph % (Auto) [place] % (Auto) Eos % (Auto) Baso % (Auto) Absolute Neuts (auto) Absolute Lymphs (auto) Nucleated RBC % Sodium Potassium Chloride Carbon Dioxide Anion Gap BUN Creatinine Estim Creat Clear Calc Est GFR (MDRD) Af Amer Est GFR (MDRD) Non-Af BUN/Creatinine Ratio Glucose Calcium Troponin I High Sens 13.7 B-Natriuretic Peptide POC Glucose 79 Radiology Impression Chest X-Ray 11/20/20 06:20 IMPRESSION: Mild pleural effusions with mild pulmonary edema. at 0953 Reported and signed by: Dee Dee Coleman MD Electronically Signed: Dee Dee Coleman MD at 9:51 EDT Tel , Service support , Echocardiogram 11/20/20 11:05 Interpretation Summary The estimated ejection fraction is EF 55-60 %. Small pericardial effusion with no haemodynamic comprimize No significant change from prior echo in 12/2019 Ordering Physician: Wale Adamson Referring Physician: Gene Miller Performed By: Garrett Villasenor RCS Assessment & Plan Assessment/Plan (1) (HFpEF) heart failure with preserved ejection fraction: (2) ANGELIA (acute kidney injury): PLAN: 1. Acute heart failure with preserved ejection fraction * To echocardiogram today shows an EF 55 to 60% with a small pericardial effusion but no evidence of hemodynamic compromise * Complicated by the patient's CKD 5 * Diuresis with furosemide * Continue with carvedilol * Not a candidate for BRAULIO inhibitor's nor angiotensin receptor blockers given his CKD 2. Acute kidney injury * Unclear if this is a progression of his CKD but creatinine is up to 4.92 baseline appears to be around 4.18 * Nephrology consultation * Concern the patient may require renal replacement therapy but not urgently at this time 3. Diabetes mellitus type 2 * Continue with basal insulin as well as sliding scale 4. Anemia of chronic disease * Patient is on ferrous sulfate twice daily and having constipation with that. * Will utilize every other day dosing for better absorption but may also help with his constipation 5. VTE prophylaxis: Moderate risk. Subcu heparin 6. Advanced care planning: Discussed the patient. Patient wishes to be full CODE STATUS at this time. Charges/Coding Visit Charges Inpatient E&M: 23091 Init Hosp L3
[2020-11-20] MEDS: hydrALAZINE 50 MG Tablet 100 MG PO ×2 (15:19→21:48)
[2020-11-20 16:39] LABS: Troponin-I HS 13.7 pg/mL (3.0-78.5)
[2020-11-20 20:45] LABS: Bedside Glucose 131 mg/dL (70-110)
[2020-11-20] MEDS: Carvedilol 12.5 MG Tablet PO (21:49)
[2020-11-20] MEDS: Heparin Injection (Vial) 5,000 UNIT/ML VIAL 5000 UNIT SC (21:49)
[2020-11-20 21:55] LABS: Bedside Glucose 145 mg/dL (70-110)
[2020-11-21] VITALS (13 sets, daily range): BP systolic 127–165; BP diastolic 47–71; PULSE 71–80; RESP 16–18; TEMP 36.3–37.2; O2SAT 95–98
[2020-11-21 05:52] LABS: Absolute Lymphocyte Count 0.79 X10^3/uL (0.83-4.51); Absolute Neutrophil Count 4.5 X10^3/uL (2.0-7.7); Basophil# 0.04 X10^3/uL; Basophil% 0.6 % (0-1); Eosinophil# 0.39 X10^3/uL; Hematocrit 26.5 % (40-54); Hemoglobin 8.2 g/dL (13.0-16.5); Lymphocyte # 0.79 X10^3/ul (0.83-4.51); Lymphocyte % 12.1 % (19-41); Mean Corp Hgb Conc 30.9 g/dL (32-36); Mean Corpuscular Volume 87.2 fL (80-94); Mean Platelet Vol. 10.7 fl (6.2-12.0); Monocyte# 0.76 X10^3/uL; Monocyte% 11.7 % (0-10); NRBC Flagged by Analyzer 0 % (0-5); Neutrophil # 4.52 X10^3/uL (2.7-7.7); Neutrophil % 69.3 % (47-70); Platelet Count 235 K/mm3 (150-450); RBC Distribution Width SD 51.4 fl (35.1-43.9); Red Blood Count 3.04 M/mm3 (4.6-6.2); White Blood Count 6.5 K/mm3 (4.4-11.0)
[2020-11-21] MEDS: hydrALAZINE 50 MG Tablet 100 MG PO ×3 (06:07→21:11)
[2020-11-21 06:30] LABS: Anion Gap 8 (5-15); BUN 73 mg/dL (7-18); Calcium,Total 8.2 mg/dL (8.5-10.1); Chloride 113 mmol/L (98-107); Creatinine, Serum 4.87 mg/dL (0.70-1.30); EST Glomerular Filtration Rate 13 mL/min (>60); Est Glom Filt Rate - Afr Amer 16 mL/min (>60); Estimated Creatinine Clearance 14.63 ml/min; Glucose 87 mg/dL (74-106); Potassium 5.3 mmol/L (3.5-5.1); Sodium Level 140 mmol/L (136-145)
[2020-11-21 06:41] LABS: Bedside Glucose 86 mg/dL (70-110)
[2020-11-21] MEDS: Aspirin E.C. 81 MG Tablet PO (09:32)
[2020-11-21] MEDS: Carvedilol 12.5 MG Tablet PO ×2 (09:33→21:11)
[2020-11-21] MEDS: Cyanocobalamin 500 MCG Tablet 1000 MCG PO (09:33)
[2020-11-21] MEDS: amLODIPine 10 MG Tablet PO (09:33)
[2020-11-21] MEDS: GUANFACINE HCL 1 MG TAB.ER.24H PO (09:34)
[2020-11-21] MEDS: Furosemide 40 MG/4 ML Vial IV ×2 (09:35→18:59)
[2020-11-21] MEDS: Heparin Injection (Vial) 5,000 UNIT/ML VIAL 5000 UNIT SC ×2 (09:35→21:11)
[2020-11-21] MEDS: Ferrous Sulfate 325 MG Tablet PO (09:35)
--- NOTE | 2020-11-21 09:45 | CON.PCM.RE_ITS ---
Assessment & Plan Assessment/Plan (1) ANGELIA (acute kidney injury): PLAN: ANGELIA on CKD stage 4 due to diabetes. Baseline creatinine in the 3's now at 4.9. 24h uirine CRCL 33cc/min in Mar 2020. Repeat 24h urine this admit to check for progressive renal failure vs acute on CKD from anemia, diastolic CHF. Needs AVF placement as outpt. (2) (HFpEF) heart failure with preserved ejection fraction: PLAN: on iv lasix. Volume status appears stable on exam. Leg edema chronic, unchanged from baseline (3) Hyperkalemia: PLAN: follow low K diet, add bicarb bid po (4) Type 2 diabetes mellitus: (5) Iron deficiency anemia: PLAN: iv iron, check iron studies, f/u with hematology for JOHAN therapy, continued anemia mgmt HPI Consult Data Date of Consult: 11/23/20 HPI Narrative HPI Narrative: BRI HERNANDEZ, is a 65 M who presents to [facility] for shortness of breath with increased leg edema past week. He has CKD stage 4 due to diabetes last visit in virtual visit due to COVID. Failed to f/u in June. He was on temp dialysis for hyperkalemia, ANGELIA on CKD in March 2020. Tunneled catheter removed. Referred to Dr. Valencia for AVF but not placed due to COVID infection in April and busy with surgery for vision loss in right eye from hemorrhage and cataract. His baseline creatinine is in the mid 3's while on duretics, presented with creatinine of 4.9 with K 5.3. BNP only at 455 on admit. 24h urine CRCL 33cc/min in March 2020. He is on vit D supplements weekly. Vit D level ordered. Creatinine unchanged at 4.9 today on iv lasix twice a day since admit. He has chronic leg swelling with history of DVT. His diuretic dose was cut back by F for rise in creatinine. He was discharged from [facility] about a month ago. Denies worsening SOB, off oxygen. Appetite fair without vomiting. He is anemic with hgb 8.2g. Iron studies ordered along with iv iron. He is on oral iron. [facility] Medical History (Updated 11/21/20 @ 13:[address] Kandis Sanford, DO) Atherosclerotic heart disease of [place] coronary artery without angina pectoris Chronic kidney disease (CKD) DVT of lower extremity (deep venous thrombosis) (09/2018) Essential (primary) hypertension Hyperlipidemia Obesity (BMI 30.0-34.9) Old inferior wall myocardial infarction Problem with dialysis access Tear of lateral meniscus of left knee Tear of medial meniscus of left knee TIA (transient ischemic attack) (09/19/18) Type 2 diabetes mellitus Vitreous hemorrhage, bilateral Home Medications nitroglycerin 0.4 mg SUBLINGUAL Q5M PRN 06/30/15 [History Last Taken 09/30/17 0.4 MG] insulin degludec 42 unit SQ DAILY 02/20/17 [History Last Taken 10/15/18 07:15] aspirin 81 mg PO DAILY #0 07/09/18 [Rx Last Taken 10/15/18 07:00] amlodipine 10 mg tablet 10 mg PO DAILY 02/10/20 [History Last Taken Unknown] cholecalciferol (vitamin D3) 1,250 mcg (50,000 unit) capsule 1,250 mcg PO QWEEK 02/10/20 [History Last Taken 11/15/20] cyanocobalamin (vitamin B-12) 1,000 mcg capsule 1,000 mcg PO DAILY 02/10/20 [History Last Taken Unknown] guanfacine 1 mg tablet 1 mg PO DAILY 02/10/20 [History Last Taken Unknown] hydralazine 100 mg PO TID tab 04/09/20 [Rx Last Taken Unknown] insulin lispro See Protocol [place] ACHS insuln.pen 04/09/20 [Rx Last Taken Unknown] carvedilol [Coreg] 12.5 mg PO BID 11/20/20 [History Last Taken Unknown] furosemide 40 mg PO BID@1000,1800 11/20/20 [History Last Taken Unknown] ferrous sulfate 325 mg PO QODAY #0 tab 11/23/20 [Rx Last Taken Unknown] guaifenesin [Mucus Relief ER] 600 mg PO BID #10 tab 11/23/20 [Rx Last Taken Unknown] sodium bicarbonate 650 mg PO BID #60 tab 11/23/20 [Rx Last Taken Unknown] Allergy/AdvReac Type Severity Reaction Status Date / Time escitalopram [From Lexapro] Allergy Unknown Verified 11/20/20 06:01 sertraline [From Zoloft] Allergy Unknown Verified 11/20/20 06:01 lisinopril AdvReac Severe Cough Verified 11/20/20 06:01 Family History Father blood clot Sister CVA (cerebral vascular accident) Mother Diabetes Surgical History H/O abdominal surgery History of coronary artery stent placement (06/17/15) Social History Smoking Status: Former smoker alcohol intake: current alcohol intake frequency: a few times a week Alcohol ty pe: beer substance use type: does not use caffeine: Yes Type: coffee Number of servings: 3 what type of physical activity do you participate in: none seatbelt use: always do you feel safe at home: Yes ROS Constitutional Constitutional: Reports chills, malaise and weakness; Denies fever(s) Eyes Eyes: Reports change in vision right (loss of vision, bleeding) ENT HEENT: Denies nasal congestion Cardiovascular Cardiovascular: Reports leg edema Respiratory/Chest Respiratory/Chest: Reports shortness of breath at rest; Denies productive cough Gastrointestinal Gastrointestinal: Reports nausea; Denies abdominal pain, diarrhea or vomiting Musculoskeletal Musculoskeletal: Reports other Details: increased leg swelling Integumentary Integumentary: Denies rash Neurologic Neurologic: Reports weakness; Denies syncope Psychiatric Psychiatric: Reports depression; Denies anxiety Endocrine Endocrinology: Reports cold intolerance Hematologic/Lymphatic Hematologic/Lymphatic: Reports anemia Physical Exam Const alert, oriented x3 and no apparent distress HEENT normocephalic Resp clear to auscultation bilaterally Cardio regular rate and no rub GI non-tender and non-distended GI Narrative: obese Auscultation: normoactive bowel sounds Palpation: soft Extremity General Extremity: edema bilateral (pitting 1+ chronic, legs wrapped) Skin no rashes or lesions noted Neuro Sensorium / Orientation: awake and alert Psych cooperative Lab / Micro Data Result Diagrams: 11/23/20 06:46 11/23/20 06:46 Labs: Laboratory Results - last 24 hr 11/20/20 11/20/20 11/20/20 12:06 12:07 16:01 WBC RBC Hgb Hct MCV MCH MCHC RDW Std Deviation RDW Coeff of Lina Plt Count MPV Immature Gran % (Auto) Neut % (Auto) Lymph % (Auto) [place] % (Auto) Eos % (Auto) Baso % (Auto) Absolute Neuts (auto) Absolute Lymphs (auto) Nucleated RBC % Sodium Potassium Chloride Carbon Dioxide Anion Gap BUN Creatinine Estim Creat Clear Calc Est GFR (MDRD) Af Amer Est GFR (MDRD) Non-Af BUN/Creatinine Ratio Glucose Calcium Troponin I High Sens 13.7 13.7 POC Glucose 79 11/20/20 11/20/20 11/21/20 17:04 21:41 05:20 WBC 6.5 RBC 3.04 L Hgb 8.2 L Hct 26.5 L MCV 87.2 MCH 27.0 MCHC 30.9 L RDW Std Deviation 51.4 H RDW Coeff of Lina 16.0 H Plt Count 235 MPV 10.7 Immature Gran % (Auto) 0.300 Neut % (Auto) 69.3 Lymph % (Auto) 12.1 L [place] % (Auto) 11.7 H Eos % (Auto) 6.0 H Baso % (Auto) 0.6 Absolute Neuts (auto) 4.5 Absolute Lymphs (auto) 0.79 L Nucleated RBC % 0 Sodium Potassium Chloride Carbon Dioxide Anion Gap BUN Creatinine Estim Creat Clear Calc Est GFR (MDRD) Af Amer Est GFR (MDRD) Non-Af BUN/Creatinine Ratio Glucose Calcium Troponin I High Sens POC Glucose 131 H 145 H 11/21/20 11/21/20 05:20 06:33 WBC RBC Hgb Hct MCV MCH MCHC RDW Std Deviation RDW Coeff of Lina Plt Count MPV Immature Gran % (Auto) Neut % (Auto) Lymph % (Auto) [place] % (Auto) Eos % (Auto) Baso % (Auto) Absolute Neuts (auto) Absolute Lymphs (auto) Nucleated RBC % Sodium 140 Potassium 5.3 H Chloride 113 H Carbon Dioxide 19.0 L Anion Gap 8 BUN 73 H Creatinine 4.87 H Estim Creat Clear Calc 14.63 Est GFR (MDRD) Af Amer 16 L Est GFR (MDRD) Non-Af 13 L BUN/Creatinine Ratio 15.0 Glucose 87 Calcium 8.2 L Troponin I High Sens POC Glucose 86 Radiology Impression Chest X-Ray 11/20/20 06:20 IMPRESSION: Mild pleural effusions with mild pulmonary edema. at 0953 Reported and signed by: Dee Dee Coleman MD Electronically Signed: Dee Dee Coleman MD at 9:51 EDT Tel , Service support , Echocardiogram 11/20/20 11:05 Interpretation Summary The estimated ejection fraction is EF 55-60 %. Small pericardial effusion with no haemodynamic comprimize No significant change from prior echo in 12/2019 Ordering Physician: Wale Adamson Referring Physician: Gene Miller Performed By: Garrett Villasenor RCS
[2020-11-21 10:05] LABS: Bedside Glucose 129 mg/dL (70-110)
--- NOTE | 2020-11-21 11:53 | PN.HOSP_ITS ---
Subjective Subjective Feeling better. Breathing better. Still lower extremity edema. Is actually taken off oxygen today Objective Data Objective Data Vital Signs: Vital Signs Temp Pulse Resp BP Pulse Ox 36.8 C 77 16 135/68 H 96 11/21/20 09:26 11/21/20 09:26 11/21/20 09:26 11/21/20 09:26 11/21/20 09:26 Oxygen Flow Rate (L/min) 2 Oxygen Delivery Method Room Air Weight: 122.1 kg Body Mass Index (BMI) 39.9 Intake & Output: Intake and Output for Last 24 Hours 11/19/20 11/20/20 11/21/20 23:59 23:59 23:59 Intake Total 560 / 610 340 / 340 Output Total 1075 / 2125 1550 / 1550 Balance -515 / -1515 -1210 / -1210 Lab / Micro Data Result Diagrams: 11/21/20 05:20 11/21/20 05:20 Labs: Laboratory Results - last 24 hr 11/20/20 11/20/20 11/20/20 12:06 12:07 16:01 WBC RBC Hgb Hct MCV MCH MCHC RDW Std Deviation RDW Coeff of Lina Plt Count MPV Immature Gran % (Auto) Neut % (Auto) Lymph % (Auto) [place] % (Auto) Eos % (Auto) Baso % (Auto) Absolute Neuts (auto) Absolute Lymphs (auto) Nucleated RBC % Sodium Potassium Chloride Carbon Dioxide Anion Gap BUN Creatinine Estim Creat Clear Calc Est GFR (MDRD) Af Amer Est GFR (MDRD) Non-Af BUN/Creatinine Ratio Glucose Calcium Troponin I High Sens 13.7 13.7 POC Glucose 79 11/20/20 11/20/20 11/21/20 17:04 21:41 05:20 WBC 6.5 RBC 3.04 L Hgb 8.2 L Hct 26.5 L MCV 87.2 MCH 27.0 MCHC 30.9 L RDW Std Deviation 51.4 H RDW Coeff of Lina 16.0 H Plt Count 235 MPV 10.7 Immature Gran % (Auto) 0.300 Neut % (Auto) 69.3 Lymph % (Auto) 12.1 L [place] % (Auto) 11.7 H Eos % (Auto) 6.0 H Baso % (Auto) 0.6 Absolute Neuts (auto) 4.5 Absolute Lymphs (auto) 0.79 L Nucleated RBC % 0 Sodium Potassium Chloride Carbon Dioxide Anion Gap BUN Creatinine Estim Creat Clear Calc Est GFR (MDRD) Af Amer Est GFR (MDRD) Non-Af BUN/Creatinine Ratio Glucose Calcium Troponin I High Sens POC Glucose 131 H 145 H 11/21/20 11/21/20 11/21/20 05:20 06:33 09:44 WBC RBC Hgb Hct MCV MCH MCHC RDW Std Deviation RDW Coeff of Lina Plt Count MPV Immature Gran % (Auto) Neut % (Auto) Lymph % (Auto) [place] % (Auto) Eos % (Auto) Baso % (Auto) Absolute Neuts (auto) Absolute Lymphs (auto) Nucleated RBC % Sodium 140 Potassium 5.3 H Chloride 113 H Carbon Dioxide 19.0 L Anion Gap 8 BUN 73 H Creatinine 4.87 H Estim Creat Clear Calc 14.63 Est GFR (MDRD) Af Amer 16 L Est GFR (MDRD) Non-Af 13 L BUN/Creatinine Ratio 15.0 Glucose 87 Calcium 8.2 L Troponin I High Sens POC Glucose 86 129 H Radiography Diagnostic Testing: Radiology Impression Echocardiogram 11/20/20 11:05 Interpretation Summary The estimated ejection fraction is EF 55-60 %. Small pericardial effusion with no haemodynamic comprimize No significant change from prior echo in 12/2019 Ordering Physician: Wale Adamson Referring Physician: Gene Miller Performed By: Garrett Villasenor RCS Physical Exam Const alert Exam Limitations: no limitations HEENT head/scalp atraumatic Head and Scalp: normocephalic Resp normal respiratory effort Resp Narrative: Coarse breath sounds bilaterally Cardio regular rate, regular rhythm, S1 normal heart sound and S2 normal heart sound GI normal to inspection, nondistended, normoactive bowel sounds, soft to palpation, non-tender and non-distended Extremity Extremity Narrative: Positive lower extremity edema Assessment & Plan Assessment/Plan (1) (HFpEF) heart failure with preserved ejection fraction: (2) ANGELIA (acute kidney injury): PLAN: 1. Acute heart failure with preserved ejection fraction * To echocardiogram today shows an EF 55 to 60% with a small pericardial effusion but no evidence of hemodynamic compromise * Complicated by the patient's CKD 5 * Diuresis with furosemide * Continue with carvedilol * Not a candidate for BRAULIO inhibitor's nor angiotensin receptor blockers given his CKD 2. Acute kidney injury * Unclear if this is a progression of his CKD but creatinine is up to 4.92 ba seline appears to be around 4.18 * Nephrology consultation * Concern the patient may require renal replacement therapy but not urgently at this time * Creatinine stable 3. Diabetes mellitus type 2 * Continue with basal insulin as well as sliding scale 4. Anemia of chronic disease * Patient is on ferrous sulfate twice daily and having constipation with that. * Will utilize every other day dosing for better absorption but may also help with his constipation 5. VTE prophylaxis: Moderate risk. Subcu heparin 6. Advanced care planning: Discussed the patient. Patient wishes to be full CODE STATUS at this time. Charges/Coding Visit Charges Inpatient E&M: 48500 Subs Hosp L2
[2020-11-21 12:40] LABS: Bedside Glucose 147 mg/dL (70-110)
[2020-11-21 15:46] LABS: 24HR. UA Prot. Total Volume 3000 mL
[2020-11-21 16:35] LABS: Urine Protein (24 Hour) 298.1 mg/dL (<11.9)
[2020-11-21 17:56] LABS: Bedside Glucose 159 mg/dL (70-110)
[2020-11-21 21:06] LABS: Bedside Glucose 161 mg/dL (70-110)
[2020-11-21] MEDS: Sodium Bicarbonate 650 MG Tablet PO (21:11)
[2020-11-21] MEDS: Insulin Lispro 100 UNIT/ML INSULN.PEN SC (21:12)
[2020-11-22] VITALS (11 sets, daily range): BP systolic 140–158; BP diastolic 55–82; PULSE 72–82; RESP 14–18; TEMP 36.6–36.9; O2SAT 94–95
[2020-11-22 05:49] LABS: Absolute Neutrophil Count 3.7 X10^3/uL (2.0-7.7); Basophil# 0.04 X10^3/uL; Basophil% 0.7 % (0-1); Eosinophil# 0.35 X10^3/uL; Eosinophils% 6.1 % (0-5); Hematocrit 24.3 % (40-54); Hemoglobin 7.5 g/dL (13.0-16.5); Lymphocyte % 13.8 % (19-41); Mean Corp Hgb Conc 30.9 g/dL (32-36); Mean Corpuscular Hgb 26.8 pg (27.0-32.0); Mean Corpuscular Volume 86.8 fL (80-94); Mean Platelet Vol. 10.6 fl (6.2-12.0); Monocyte# 0.83 X10^3/uL; Monocyte% 14.4 % (0-10); NRBC Flagged by Analyzer 0 % (0-5); Neutrophil # 3.74 X10^3/uL (2.7-7.7); Neutrophil % 64.7 % (47-70); Platelet Count 195 K/mm3 (150-450); RBC Distribution Width CV 15.9 % (11.6-14.6); RBC Distribution Width SD 50.6 fl (35.1-43.9); White Blood Count 5.8 K/mm3 (4.4-11.0)
[2020-11-22 06:09] LABS: Albumin, Serum 2.8 g/dL (3.2-5.0); Anion Gap 8 (5-15); BUN 75 mg/dL (7-18); BUN/Creat Ratio 15.5 RATIO (10-20); Calcium,Total 7.9 mg/dL (8.5-10.1); Chloride 111 mmol/L (98-107); Creatinine, Serum 4.84 mg/dL (0.70-1.30); EST Glomerular Filtration Rate 13 mL/min (>60); Est Glom Filt Rate - Afr Amer 16 mL/min (>60); Estimated Creatinine Clearance 14.72 ml/min; Glucose 109 mg/dL (74-106); Iron 87 ug/dL (65-175); Iron Binding Capacity,Total 242 ug/dL (250-450); Phosphorus 5.4 mg/dL (2.5-4.9); Potassium 5.4 mmol/L (3.5-5.1); Sodium Level 139 mmol/L (136-145)
[2020-11-22] MEDS: hydrALAZINE 50 MG Tablet 100 MG PO ×3 (06:18→21:00)
[2020-11-22 06:50] LABS: Bedside Glucose 102 mg/dL (70-110)
[2020-11-22] MEDS: Aspirin E.C. 81 MG Tablet PO (08:46)
[2020-11-22] MEDS: GUANFACINE HCL 1 MG TAB.ER.24H PO (08:46)
[2020-11-22] MEDS: Carvedilol 12.5 MG Tablet PO ×2 (08:46→21:00)
[2020-11-22] MEDS: Ergocalciferol 1.25 MG (50, 000 UNIT) Capsule PO (08:47)
[2020-11-22] MEDS: Sodium Bicarbonate 650 MG Tablet PO ×2 (08:47→21:00)
[2020-11-22] MEDS: Cyanocobalamin 500 MCG Tablet 1000 MCG PO (08:47)
[2020-11-22] MEDS: amLODIPine 10 MG Tablet PO (08:47)
[2020-11-22] MEDS: Heparin Injection (Vial) 5,000 UNIT/ML VIAL 5000 UNIT SC ×2 (08:48→21:00)
[2020-11-22] MEDS: Furosemide 40 MG Tablet PO ×2 (08:55→17:01)
[2020-11-22] MEDS: Sodium Polystyrene Sulfonate 15 GM/60 ML UDC 30 GM PO (08:55)
--- NOTE | 2020-11-22 10:56 | PCM.PN.REN ---
Subjective Subjective clinically stable, breathing stable. Creatinine unchanged. 24h urine pending. Change iv lasix to po. 1) ANGELIA (acute kidney injury): PLAN: ANGELIA on CKD stage 4 due to diabetes. Baseline creatinine in the 3's now at 4.9. 24h uirine CRCL 33cc/min in Mar 2020. Repeat 24h urine pending. Needs AVF placement as outpt. (2) (HFpEF) heart failure with preserved ejection fraction: PLAN: on iv lasix. Volume status appears stable on exam. Leg edema chronic, unchanged from baseline (3) Hyperkalemia: PLAN: follow low K diet, add bicarb bid po, add kayexalate (4) Type 2 diabetes mellitus: (5) Iron deficiency anemia: PLAN: iv iron, check iron studies, f/u with hematology for JOHAN therapy, continued anemia mgmt dw hospitalist Objective Data Objective Data Vital Signs: Vital Signs Temp Pulse Resp BP Pulse Ox 97.9 F 81 15 141/68 H 94 11/22/20 08:34 11/22/20 08:34 11/22/20 08:34 11/22/20 08:34 11/22/20 08:34 Oxygen Flow Rate (L/min) 2 Oxygen Delivery Method Room Air Weight: 120.2 kg Body Mass Index (BMI) 39.9 Intake & Output: Intake and Output for Last 24 Hours 11/20/20 11/21/20 11/22/20 23:59 23:59 23:59 Intake Total 560 / 610 850 / 850 Output Total 1075 / 2125 1550 / 1550 1125 / 1125 Balance -515 / -1515 -700 / -700 -1125 / -1125 Lab / Micro Data Result Diagrams: 11/22/20 05:32 11/22/20 05:32 Labs: Laboratory Results - last 24 hr 11/21/20 11/21/20 11/21/20 11:33 14:17 17:32 WBC RBC Hgb Hct MCV MCH MCHC RDW Std Deviation RDW Coeff of Lina Plt Count MPV Immature Gran % (Auto) Neut % (Auto) Lymph % (Auto) [place] % (Auto) Eos % (Auto) Baso % (Auto) Absolute Neuts (auto) Absolute Lymphs (auto) Nucleated RBC % Sodium Potassium Chloride Carbon Dioxide Anion Gap BUN Creatinine Estim Creat Clear Calc Est GFR (MDRD) Af Amer Est GFR (MDRD) Non-Af BUN/Creatinine Ratio Glucose Calcium Phosphorus Iron TIBC Iron Saturation Albumin Urine Collection Time 24.0 Timed Urine Volume 3000 Ur Total Protein 24 Hr 8943.0 H Urine Total Protein 298.1 H POC Glucose 147 H 159 H 11/21/20 11/22/20 11/22/20 21:02 05:32 05:32 WBC 5.8 RBC 2.80 L Hgb 7.5 L Hct 24.3 L MCV 86.8 MCH 26.8 L MCHC 30.9 L RDW Std Deviation 50.6 H RDW Coeff of Lina 15.9 H Plt Count 195 MPV 10.6 Immature Gran % (Auto) 0.300 Neut % (Auto) 64.7 Lymph % (Auto) 13.8 L [place] % (Auto) 14.4 H Eos % (Auto) 6.1 H Baso % (Auto) 0.7 Absolute Neuts (auto) 3.7 Absolute Lymphs (auto) 0.80 L Nucleated RBC % 0 Sodium 139 Potassium 5.4 H Chloride 111 H Carbon Dioxide 20.0 L Anion Gap 8 BUN 75 H Creatinine 4.84 H Estim Creat Clear Calc 14.72 Est GFR (MDRD) Af Amer 16 L Est GFR (MDRD) Non-Af 13 L BUN/Creatinine Ratio 15.5 Glucose 109 H Calcium 7.9 L Phosphorus 5.4 H Iron 87 TIBC 242 L Iron Saturation 36.0 Albumin 2.8 L Urine Collection Time Timed Urine Volume Ur Total Protein 24 Hr Urine Total Protein POC Glucose 161 H 11/22/20 06:21 WBC RBC Hgb Hct MCV MCH MCHC RDW Std Deviation RDW Coeff of Lina Plt Count MPV Immature Gran % (Auto) Neut % (Auto) Lymph % (Auto) [place] % (Auto) Eos % (Auto) Baso % (Auto) Absolute Neuts (auto) Absolute Lymphs (auto) Nucleated RBC % Sodium Potassium Chloride Carbon Dioxide Anion Gap BUN Creatinine Estim Creat Clear Calc Est GFR (MDRD) Af Amer Est GFR (MDRD) Non-Af BUN/Creatinine Ratio Glucose Calcium Phosphorus Iron TIBC Iron Saturation Albumin Urine Collection Time Timed Urine Volume Ur Total Protein 24 Hr Urine Total Protein POC Glucose 102 Physical Exam Const alert and oriented x3 Resp clear to auscultation bilaterally Cardio regular rate GI non-tender and non-distended GI Narrative: obese Palpation: soft Extremity General Extremity: edema bilateral (chronic, unchanged) Neuro Sensorium / Orientation: awake and alert Psych cooperative
--- NOTE | 2020-11-22 11:32 | VDUE_ITS ---
Reason For Study: AV fistula Right Arm Left Arm Right cephalic vein is compressible. Left cephalic vein is compressible. Right Cephalic Vein at the shoulder Left Cephalic Vein at the shoulder measures .53 x .52 cm. measures .49 x .49 cm. Right Cephalic Vein mid bicep measures .45 Left Cephalic Vein at mid bicep measures .47 x .47 cm. x .49 cm. Right Cephalic Vein above antecub Left Cephalic Vein above antecub measures .45 measures .46 x .44 cm. x .44 cm. Right Cephalic Vein below antecub Left Cephalic Vein below antecub measures .3 measures .21 x .21 cm. x .31 cm. Right Cephalic Vein in the forearm Left Cephalic Vein in the forearm measures .12 x .16 cm. measures .38 x .42 cm. Right Cephalic Vein at the wrist measures .16 Left Cephalic Vein at the wrist measures .38 x .19 cm. x .41 cm. Right basilic vein is compressible. Basilic vein at bicep measures .47 x .46 cm. Right Basilic Vein mid bicep measures .58 Basilic vein above antecub measures .25 x .26 x .64 cm. cm. Right Basilic Vein above antecub measures .58 Basilic vein below antecub measures .24 x .26 x .6 cm. cm. Right Basilic Vein below antecub measures .36 Basilic vein in the forearm measures .07 x .37 cm. x .09 cm. Right Basilic Vein in the forearm Basilic vein at the wrist measures .06 x .06 measures .34 x .38 cm. cm. Right Basilic Vein at the wrist measures .27 Brachial Art .43 x .43 cm. x .32 cm. Brachial Art 110.2 cm/s Brachial Art .44 x .48 cm. Radial Art .14 x .18 cm. Brachial Art 110.3 cm/s Radial Art 138.1 cm/s. Radial Art .15 x .21 cm. Radial Art 93.3 cm/s. VL/Saphenous Vein Mapping, Bilat Interpretation Summary Patent and compressible bilateral upper extremity cephalic and basilic veins wi th dimensions as noted. Right forearm cephalic vein appears small. Bilateral radial arteries small. Adequate diameter and flow bilateral brachial arteries Ordering Physician: Kandis Sanford Performed By: Stas Rodríguez RVT ?
[2020-11-22 11:56] LABS: Bedside Glucose 107 mg/dL (70-110)
--- NOTE | 2020-11-22 13:17 | PN.HOSP_ITS ---
Hospitalist Note Follow up: CHF Subjective: Vitals: 36.6 81 141/68 94% RA Up at side of bed. NAD. Afebrile. HRRR S1 S2 LCTAB Abd soft NT ND nml BS. Taut LE edema w lymphedema wraps on. Data: CBC: WBC 5.8 Hg 7.5 Plt 195 BMP: Na 139, K 5.4, Cr 4.84 A/P 1. Acute heart failure with preserved ejection fraction To echocardiogram today shows an EF 55 to 60% with a small pericardial effusion but no evidence of hemodynamic compromise Complicated by the patient's CKD 5 Diuresis with furosemide Continue with carvedilol Not a candidate for BRAULIO inhibitor's nor angiotensin receptor blockers given his CKD -179 total. Weight down 120kg 2. CKD 5 ANGELIA ruled out Nephrology consultation Concern the patient may require renal replacement therapy but not urgently at t his time Creatinine stable Follow up with Dr. Valencia for fistula placement 3. Diabetes mellitus type 2 Continue with basal insulin as well as sliding scale 4. Anemia of chronic disease Patient is on ferrous sulfate twice daily and having constipation with that. Will utilize every other day dosing for better absorption but may also help with his constipation Hg down today. Monitor 5. VTE prophylaxis: Moderate risk. Subcu heparin Visit Charges Inpatient E&M: 91198 Subs Hosp L2
[2020-11-22 14:39] LABS: Creat.Clear Total Volume 3000 mL; Creatinine Clearance 25 ml/min (100-200); Creatinine Serum Creat 4.9 mg/dL (0.8-1.3); Creatinine Urine 58.8 mg/dL (NO RANGE EST.); EST Glomerular Filtration Rate 13 mL/min (>60); Est Glom Filt Rate - Afr Amer 16 mL/min (>60)
[2020-11-22 17:11] LABS: Bedside Glucose 111 mg/dL (70-110)
[2020-11-22] MEDS: Insulin Lispro 100 UNIT/ML INSULN.PEN SC (21:00)
[2020-11-22 22:30] LABS: Bedside Glucose 159 mg/dL (70-110)
[2020-11-23] VITALS (10 sets, daily range): BP systolic 136–162; BP diastolic 54–67; PULSE 77–90; RESP 16–18; TEMP 36.5–37; O2SAT 95–97
[2020-11-23 03:21] LABS: Bedside Glucose 82 mg/dL (70-110)
[2020-11-23] MEDS: hydrALAZINE 50 MG Tablet 100 MG PO ×2 (06:16→14:45)
[2020-11-23 06:46] LABS: Bedside Glucose 79 mg/dL (70-110)
--- NOTE | 2020-11-23 06:48 | NURSING ---
BS 79 this am, gave glass of orange juice and 1 pack of telly crackers.
[2020-11-23 06:54] LABS: Absolute Lymphocyte Count 0.75 X10^3/uL (0.83-4.51); Absolute Neutrophil Count 3.4 X10^3/uL (2.0-7.7); Basophil# 0.05 X10^3/uL; Basophil% 0.9 % (0-1); Eosinophil# 0.38 X10^3/uL; Eosinophils% 7.1 % (0-5); Hematocrit 25.3 % (40-54); Hemoglobin 7.9 g/dL (13.0-16.5); Lymphocyte # 0.75 X10^3/ul (0.83-4.51); Mean Corp Hgb Conc 31.2 g/dL (32-36); Mean Corpuscular Hgb 26.9 pg (27.0-32.0); Mean Corpuscular Volume 86.1 fL (80-94); Mean Platelet Vol. 10.5 fl (6.2-12.0); Monocyte# 0.79 X10^3/uL; Monocyte% 14.7 % (0-10); NRBC Flagged by Analyzer 0 % (0-5); Neutrophil # 3.39 X10^3/uL (2.7-7.7); Neutrophil % 63.1 % (47-70); Platelet Count 194 K/mm3 (150-450); RBC Distribution Width CV 16.1 % (11.6-14.6); RBC Distribution Width SD 50.5 fl (35.1-43.9); Red Blood Count 2.94 M/mm3 (4.6-6.2); White Blood Count 5.4 K/mm3 (4.4-11.0)
[2020-11-23 07:15] LABS: Anion Gap 7 (5-15); BUN 69 mg/dL (7-18); BUN/Creat Ratio 14.8 RATIO (10-20); Calcium,Total 8.1 mg/dL (8.5-10.1); Chloride 112 mmol/L (98-107); Creatinine, Serum 4.65 mg/dL (0.70-1.30); EST Glomerular Filtration Rate 14 mL/min (>60); Est Glom Filt Rate - Afr Amer 16 mL/min (>60); Estimated Creatinine Clearance 15.32 ml/min; Glucose 96 mg/dL (74-106); Phosphorus 5.8 mg/dL (2.5-4.9); Potassium 4.7 mmol/L (3.5-5.1); Sodium Level 140 mmol/L (136-145)
[2020-11-23 08:39] LABS: PTHIN 163.9 pg/mL (18.4-80.1)
[2020-11-23 08:43] LABS: Vitamin D,25 Hydroxy 36.4 ng/mL
[2020-11-23] MEDS: guaiFENesin 600 MG Tablet PO (09:40)
[2020-11-23] MEDS: amLODIPine 10 MG Tablet PO (09:40)
[2020-11-23] MEDS: Cyanocobalamin 500 MCG Tablet 1000 MCG PO (09:40)
[2020-11-23] MEDS: Sodium Bicarbonate 650 MG Tablet PO (09:40)
[2020-11-23] MEDS: Aspirin E.C. 81 MG Tablet PO (09:40)
[2020-11-23] MEDS: Ferrous Sulfate 325 MG Tablet PO (09:40)
[2020-11-23] MEDS: Carvedilol 12.5 MG Tablet PO (09:40)
[2020-11-23] MEDS: Furosemide 40 MG Tablet PO (09:40)
[2020-11-23] MEDS: Heparin Injection (Vial) 5,000 UNIT/ML VIAL 5000 UNIT SC (09:43)
[2020-11-23 10:01] LABS: Bedside Glucose 120 mg/dL (70-110)
[2020-11-23 11:55] LABS: Bedside Glucose 128 mg/dL (70-110)
--- NOTE | 2020-11-23 13:48 | CASEMGMT ---
Therapy is recommending OP therapy for pt at discharge and pt is agreeable to same and would like script faxed to [facility]. Pt states may need transportation to [facility] and is aware to notify [facility] when they call to set up appt, voices understanding. Pt has been on room air for last several days. Pt voices no further questions/concerns/needs. SStjacob LAY CM
--- NOTE | 2020-11-23 14:04 | PCM.DC ---
Discharge Instructions Diet Discharge Diet: 2000 Calorie Control Diet and 6 Cup Fluid Restriction Dressing / Incision Call your doctor if you observe: Shortness of breath Follow Up Care Test Results: Test results from this visit will be discussed in further detail at your follow-up appointment, if applicable. Discharge Plan Admission Admit Date/Time: 11/20/20 10:40 Attending Provider: Wale Adamson Primary Care Provider: Gene Miller Consulting Providers: Kandis Sanford Discharge Orders/Prescriptions Prescriptions: New guaifenesin [Mucus Relief ER] 600 mg Tablet Extended Release 12hr 600 mg PO BID Qty: 10 RF: 0 sodium bicarbonate 650 mg Tablet 650 mg PO BID Qty: 60 RF: 0 Continued nitroglycerin 0.4 MG tablet 0.4 mg SUBLINGUAL Q5M PRN (Reason: Chest Pain) RF: 0 insulin degludec 200 UNIT/ML insulin pen 42 unit SQ DAILY RF: 0 aspirin 81 MG tablet 81 mg PO DAILY Qty: 0 RF: 0 hydralazine 50 MG tablet 100 mg PO TID RF: 0 insulin lispro 100 UNIT/ML insulin pen See Protocol unit SC ACHS RF: 0 carvedilol [Coreg] 25 mg tablet 12.5 mg PO BID RF: 0 furosemide 80 MG tablet 40 mg PO BID@1000,1800 RF: 0 ferrous sulfate 325 MG tablet 325 mg PO BID RF: 0 amlodipine [Norvasc] 10 mg tablet 10 mg PO DAILY RF: 0 guanfacine 1 mg tablet 1 mg PO DAILY RF: 0 cholecalciferol (vitamin D3) 1,250 mcg (50,000 unit) capsule 1,250 mcg PO QWEEK RF: 0 cyanocobalamin (vitamin B-12) 1,000 mcg capsule 1,000 mcg PO DAILY RF: 0 Referrals / Follow Up: Kandis Sanford DO [STAFF PHYSICIAN] - Within 2 Weeks Gene Miller MD [Primary Care Provider] - Within 1 Week Disposition Disposition (needs filled in before D/C Order can be placed): Home, Self Care
--- NOTE | 2020-11-23 14:09 | DS.PCM_ITS ---
Providers Date of Admission: 11/20/20 Primary Care Physician: Dr. Gene Miller MD Consultations 11/20/20 11:05 Consult: Nephrology Routine Consulting Provider: Kandis Sanford Reason for Consult: ANGELIA EMERGENT Consult: No MD Notified: Yes Date Notified: 11/20/20 Time Notified: 10:39 Method of Notification: Verbal Reason For Visit: CHF Diagnosis Discharge Diagnosis (1) ANGELIA (acute kidney injury): Status: Acute Code(s): N17.9 - Acute kidney failure, unspecified (2) (HFpEF) heart failure with preserved ejection fraction: Status: Acute Code(s): I50.30 - Unspecified diastolic (congestive) heart failure (3) Hyperkalemia: Status: Acute Code(s): E87.5 - Hyperkalemia (4) Type 2 diabetes mellitus: Status: Chronic Code(s): E11.9 - Type 2 diabetes mellitus without complications (5) Iron deficiency anemia: Status: Chronic Code(s): D50.9 - Iron deficiency anemia, unspecified Medications at Discharge Home Medications nitroglycerin 0.4 mg SUBLINGUAL Q5M PRN 06/30/15 insulin degludec 42 unit SQ DAILY 02/20/17 aspirin 81 mg PO DAILY #0 07/09/18 amlodipine 10 mg tablet 10 mg PO DAILY 02/10/20 cholecalciferol (vitamin D3) 1,250 mcg (50,000 unit) capsule 1,250 mcg PO QWEEK 02/10/20 cyanocobalamin (vitamin B-12) 1,000 mcg capsule 1,000 mcg PO DAILY 02/10/20 guanfacine 1 mg tablet 1 mg PO DAILY 02/10/20 hydralazine 100 mg PO TID tab 04/09/20 insulin lispro See Protocol SC ACHS insuln.pen 04/09/20 carvedilol [Coreg] 12.5 mg PO BID 11/20/20 furosemide 40 mg PO BID@1000,1800 11/20/20 ferrous sulfate 325 mg PO QODAY #0 tab 11/23/20 guaifenesin [Mucus Relief ER] 600 mg PO BID #10 tab 11/23/20 sodium bicarbonate 650 mg PO BID #60 tab 11/23/20 Hospital Course Operations None Procedures 2-D Echocardiogram Summary of Care Provided Minutes Spent on Discharge: 31 Hospital Course: 65-year-old male presents with shortness of breath. Patient was found to have CHF and started on IV diuresis and diuresed well. Patient not requiring further oxygen. Patient continue with the 40 mg of oral furosemide and advised to restrict his fluid intake to 1500 cc/day. Reviewed with him what that would be an cup so that would be a little over 6 cups of fluid per day. A/P 1. Acute heart failure with preserved ejection fraction To echocardiogram today shows an EF 55 to 60% with a small pericardial effusion but no evidence of hemodynamic compromise Complicated by the patient's CKD 5 Diuresis with furosemide Continue with carvedilol Not a candidate for BRAULIO inhibitor's nor angiotensin receptor blockers given his CKD -1790 total. Weight down 119kg 2. CKD 5 ANGELIA ruled out Nephrology consultation Concern the patient may require renal replacement therapy but not urgently at this time Creatinine stable Follow up with Dr. Valencia for fistula placement 3. Diabetes mellitus type 2 Continue with basal insulin as well as sliding scale 4. Anemia of chronic disease Patient is on ferrous sulfate twice daily and having constipation with that. Will utilize every other day dosing for better absorption but may also help with his constipation Hg down today. Monitor Physical Exam Const General Appearance: cooperative and comfortable Resp normal respiratory effort, no retractions, no use of accessory muscles and clear to auscultation bilaterally Cardio regular rate, regular rhythm, S1 normal heart sound and S2 normal heart sound GI normal to inspection, nondistended, normoactive bowel sounds, non-tender and non-distended Extremity Extremity Narrative: lymphedema bilaterally. Weight / BMI Weight Weight: 119.5 kg Body Mass Index (BMI) 39.9 ABG / Lab / Microbiology Data Result Diagrams: 11/23/20 06:46 11/23/20 06:46 Laboratory: Laboratory Results - last 24 hr 11/21/20 11/21/20 11/21/20 05:20 05:20 14:17 WBC RBC Hgb Hct MCV MCH MCHC RDW Std Deviation RDW Coeff of Lina Plt Count MPV Immature Gran % (Auto) Neut % (Auto) Lymph % (Auto) [place] % (Auto) Eos % (Auto) Baso % (Auto) Absolute Neuts (auto) Absolute Lymphs (auto) Nucleated RBC % Sodium Potassium Chloride Carbon Dioxide Anion Gap BUN Creatinine 4.9 H Estim Creat Clear Calc Est GFR (MDRD) Af Amer 16 L Est GFR (MDRD) Non-Af 13 L BUN/Creatinine Ratio Glucose Calcium Phosphorus Albumin Vitamin D 25-Hydroxy 36.4 PTH Intact 163.9 H Urine Collection Time 24.0 Timed Urine Volume 3000 Urine Creatinine 58.8 Creatinine Clearance 25 L POC Glucose 11/22/20 11/22/20 11/23/20 16:58 20:53 03:03 WBC RBC Hgb Hct MCV MCH MCHC RDW Std Deviation RDW Coeff of Lina Plt Count MPV Immature Gran % (Auto) Neut % (Auto) Lymph % (Auto) [place] % (Auto) Eos % (Auto) Baso % (Auto) Absolute Neuts (auto) Absolute Lymphs (auto) Nucleated RBC % Sodium Potassium Chloride Carbon Dioxide Anion Gap BUN Creatinine Estim Creat Clear Calc Est GFR (MDRD) Af Amer Est GFR (MDRD) Non-Af BUN/Creatinine Ratio Glucose Calcium Phosphorus Albumin Vitamin D 25-Hydroxy PTH Intact Urine Collection Time Timed Urine Volume Urine Creatinine Creatinine Clearance POC Glucose 111 H 159 H 82 11/23/20 11/23/20 11/23/20 06:19 06:46 06:46 WBC 5.4 RBC 2.94 L Hgb 7.9 L Hct 25.3 L MCV 86.1 MCH 26.9 L MCHC 31.2 L RDW Std Deviation 50.5 H RDW Coeff of Lina 16.1 H Plt Count 194 MPV 10.5 Immature Gran % (Auto) 0.200 Neut % (Auto) 63.1 Lymph % (Auto) 14.0 L [place] % (Auto) 14.7 H Eos % (Auto) 7.1 H Baso % (Auto) 0.9 Absolute Neuts (auto) 3.4 Absolute Lymphs (auto) 0.75 L Nucleated RBC % 0 Sodium 140 Potassium 4.7 Chloride 112 H Carbon Dioxide 21.0 Anion Gap 7 BUN 69 H Creatinine 4.65 H Estim Creat Clear Calc 15.32 Est GFR (MDRD) Af Amer 16 L Est GFR (MDRD) Non-Af 14 L BUN/Creatinine Ratio 14.8 Glucose 96 Calcium 8.1 L Phosphorus 5.8 H Albumin 3.0 L Vitamin D 25-Hydroxy PTH Intact Urine Collection Time Timed Urine Volume Urine Creatinine Creatinine Clearance POC Glucose 79 11/23/20 11/23/20 09:38 11:37 WBC RBC Hgb Hct MCV MCH MCHC RDW Std Deviation RDW Coeff of Lina Plt Count MPV Immature Gran % (Auto) Neut % (Auto) Lymph % (Auto) [place] % (Auto) Eos % (Auto) Baso % (Auto) Absolute Neuts (auto) Absolute Lymphs (auto) Nucleated RBC % Sodium Potassium Chloride Carbon Dioxide Anion Gap BUN Creatinine Estim Creat Clear Calc Est GFR (MDRD) Af Amer Est GFR (MDRD) Non-Af BUN/Creatinine Ratio Glucose Calcium Phosphorus Albumin Vitamin D 25-Hydroxy PTH Intact Urine Collection Time Timed Urine Volume Urine Creatinine Creatinine Clearance POC Glucose 120 H 128 H D/C Instructions Discharge Diet: 2000 Calorie Control Diet and 6 Cup Fluid Restriction Call your doctor if you observe: Shortness of breath Meaningful Use Info Meaningful Use Diagnoses (Choose all that apply): CHF CHF BRAULIO/ARB ordered at discharge?: No Reason BRAULIO/ARB not ordered?: Worsening renal disease Documented LVEF (%): 55 Discharge Plan Admission Admit Date/Time: 11/20/20 10:40 Attending Provider: Wale Adamson Primary Care Provider: Gene Miller Consulting Providers: Kandis Sanford Discharge Orders/Prescriptions Prescriptions: New guaifenesin [Mucus Relief ER] 600 mg Tablet Extended Release 12hr 600 mg PO BID Qty: 10 RF: 0 sodium bicarbonate 650 mg Tablet 650 mg PO BID Qty: 60 RF: 0 Continued nitroglycerin 0.4 MG tablet 0.4 mg SUBLINGUAL Q5M PRN (Reason: Chest Pain) RF: 0 insulin degludec 200 UNIT/ML insulin pen 42 unit SQ DAILY RF: 0 aspirin 81 MG tablet 81 mg PO DAILY Qty: 0 RF: 0 hydralazine 50 MG tablet 100 mg PO TID RF: 0 insulin lispro 100 UNIT/ML insulin pen See Protocol unit SC ACHS RF: 0 carvedilol [Coreg] 25 mg tablet 12.5 mg PO BID RF: 0 furosemide 80 MG tablet 40 mg PO BID@1000,1800 RF: 0 amlodipine [Norvasc] 10 mg tablet 10 mg PO DAILY RF: 0 guanfacine 1 mg tablet 1 mg PO DAILY RF: 0 cholecalciferol (vitamin D3) 1,250 mcg (50,000 unit) capsule 1,250 mcg PO QWEEK RF: 0 cyanocobalamin (vitamin B-12) 1,000 mcg capsule 1,000 mcg PO DAILY RF: 0 Changed ferrous sulfate 325 MG tablet 325 mg PO QODAY Qty: 0 RF: 0 Referrals / Follow Up: Kandis Sanford DO [STAFF PHYSICIAN] - Within 2 Weeks Gene Miller MD [Primary Care Provider] - Within 1 Week Warren Valencia MD [STAFF PHYSICIAN] - Within 2 Weeks Disposition Disposition (needs filled in before D/C Order can be placed): Home, Self Care
--- NOTE | 2020-11-23 14:16 | PCM.PN.REN ---
Subjective Subjective breathing stable on RA. Creatinine clearance 25cc/min. Creatinine slightly improved Objective Data Objective Data Vital Signs: Vital Signs Temp Pulse Resp BP Pulse Ox 97.9 F 85 18 162/67 H 95 11/23/20 08:30 11/23/20 11:00 11/23/20 08:30 11/23/20 08:30 11/23/20 08:30 Oxygen Flow Rate (L/min) 2 Oxygen Delivery Method Room Air Weight: 119.5 kg Body Mass Index (BMI) 39.9 Intake & Output: Intake and Output for Last 24 Hours 11/21/20 11/22/20 11/23/20 23:59 23:59 23:59 Intake Total 850 / 850 1100 / 1100 760 / 760 Output Total 1550 / 1550 1565 / 1565 1650 / 1650 Balance -700 / -700 -465 / -465 -890 / -890 Lab / Micro Data Result Diagrams: 11/23/20 06:46 11/23/20 06:46 Labs: Laboratory Results - last 24 hr 11/21/20 11/21/20 11/21/20 05:20 05:20 14:17 WBC RBC Hgb Hct MCV MCH MCHC RDW Std Deviation RDW Coeff of Lina Plt Count MPV Immature Gran % (Auto) Neut % (Auto) Lymph % (Auto) [place] % (Auto) Eos % (Auto) Baso % (Auto) Absolute Neuts (auto) Absolute Lymphs (auto) Nucleated RBC % Sodium Potassium Chloride Carbon Dioxide Anion Gap BUN Creatinine 4.9 H Estim Creat Clear Calc Est GFR (MDRD) Af Amer 16 L Est GFR (MDRD) Non-Af 13 L BUN/Creatinine Ratio Glucose Calcium Phosphorus Albumin Vitamin D 25-Hydroxy 36.4 PTH Intact 163.9 H Urine Collection Time 24.0 Timed Urine Volume 3000 Urine Creatinine 58.8 Creatinine Clearance 25 L POC Glucose 11/22/20 11/22/20 11/23/20 16:58 20:53 03:03 WBC RBC Hgb Hct MCV MCH MCHC RDW Std Deviation RDW Coeff of Lina Plt Count MPV Immature Gran % (Auto) Neut % (Auto) Lymph % (Auto) [place] % (Auto) Eos % (Auto) Baso % (Auto) Absolute Neuts (auto) Absolute Lymphs (auto) Nucleated RBC % Sodium Potassium Chloride Carbon Dioxide Anion Gap BUN Creatinine Estim Creat Clear Calc Est GFR (MDRD) Af Amer Est GFR (MDRD) Non-Af BUN/Creatinine Ratio Glucose Calcium Phosphorus Albumin Vitamin D 25-Hydroxy PTH Intact Urine Collection Time Timed Urine Volume Urine Creatinine Creatinine Clearance POC Glucose 111 H 159 H 82 11/23/20 11/23/20 11/23/20 06:19 06:46 06:46 WBC 5.4 RBC 2.94 L Hgb 7.9 L Hct 25.3 L MCV 86.1 MCH 26.9 L MCHC 31.2 L RDW Std Deviation 50.5 H RDW Coeff of Lina 16.1 H Plt Count 194 MPV 10.5 Immature Gran % (Auto) 0.200 Neut % (Auto) 63.1 Lymph % (Auto) 14.0 L [place] % (Auto) 14.7 H Eos % (Auto) 7.1 H Baso % (Auto) 0.9 Absolute Neuts (auto) 3.4 Absolute Lymphs (auto) 0.75 L Nucleated RBC % 0 Sodium 140 Potassium 4.7 Chloride 112 H Carbon Dioxide 21.0 Anion Gap 7 BUN 69 H Creatinine 4.65 H Estim Creat Clear Calc 15.32 Est GFR (MDRD) Af Amer 16 L Est GFR (MDRD) Non-Af 14 L BUN/Creatinine Ratio 14.8 Glucose 96 Calcium 8.1 L Phosphorus 5.8 H Albumin 3.0 L Vitamin D 25-Hydroxy PTH Intact Urine Collection Time Timed Urine Volume Urine Creatinine Creatinine Clearance POC Glucose 79 11/23/20 11/23/20 09:38 11:37 WBC RBC Hgb Hct MCV MCH MCHC RDW Std Deviation RDW Coeff of Lina Plt Count MPV Immature Gran % (Auto) Neut % (Auto) Lymph % (Auto) [place] % (Auto) Eos % (Auto) Baso % (Auto) Absolute Neuts (auto) Absolute Lymphs (auto) Nucleated RBC % Sodium Potassium Chloride Carbon Dioxide Anion Gap BUN Creatinine Estim Creat Clear Calc Est GFR (MDRD) Af Amer Est GFR (MDRD) Non-Af BUN/Creatinine Ratio Glucose Calcium Phosphorus Albumin Vitamin D 25-Hydroxy PTH Intact Urine Collection Time Timed Urine Volume Urine Creatinine Creatinine Clearance POC Glucose 120 H 128 H Physical Exam Const alert, oriented x3 and no apparent distress Resp Auscultation: diminished lung sounds Cardio regular rate Extremity General Extremity: edema bilateral (no change) Assessment & Plan Assessment/Plan (1) CKD stage 4 due to type 2 diabetes mellitus: PLAN: 24h urine CRCL 25cc/min, no urgent need for dialysis. Encouraged to f/u with Dr. Valencia for AVF placement. VM done today (2) (HFpEF) heart failure with preserved ejection fraction: PLAN: follow low salt diet at home (3) Type 2 diabetes mellitus: (4) Iron deficiency anemia: PLAN: refer to hematology (5) Hyperkalemia: PLAN: follow low K diet (6) Hypertension: PLAN: continue BP meds
--- NOTE | 2020-11-23 14:30 | PHA.DC.MC ---
Pharmacy Service has performed discharge medication reconciliation and counseling for this patient. 1. GUAIFENESIN 600MG PO BID X 5 DAYS 2. SODIUM BICARBONATE 650MG PO BID The patient's discharge medication list was reviewed for discrepancies and discrepancies were resolved. Home Medications nitroglycerin 0.4 mg SUBLINGUAL Q5M PRN 06/30/15 insulin degludec 42 unit SQ DAILY 02/20/17 aspirin 81 mg PO DAILY #0 07/09/18 amlodipine 10 mg tablet 10 mg PO DAILY 02/10/20 cholecalciferol (vitamin D3) 1,250 mcg (50,000 unit) capsule 1,250 mcg PO QWEEK 02/10/20 cyanocobalamin (vitamin B-12) 1,000 mcg capsule 1,000 mcg PO DAILY 02/10/20 guanfacine 1 mg tablet 1 mg PO DAILY 02/10/20 hydralazine 100 mg PO TID tab 04/09/20 insulin lispro See Protocol SC ACHS insuln.pen 04/09/20 carvedilol [Coreg] 12.5 mg PO BID 11/20/20 furosemide 40 mg PO BID@1000,1800 11/20/20 ferrous sulfate 325 mg PO QODAY #0 tab 11/23/20 guaifenesin [Mucus Relief ER] 600 mg PO BID #10 tab 11/23/20 sodium bicarbonate 650 mg PO BID #60 tab 11/23/20 The patient was counseled on the following discharge medications and changes in medications for homegoing were reviewed. The Reason for Use, instructions for use, and potential side effects were reviewed for all new medications. The patient's questions regarding all of their medications were answered. The patient was able to verbally demonstrate an understanding of their discharge medications.
--- NOTE | 2020-11-25 13:29 | CASEMGMT ---
RN CM Discharge F/U Phone Call LACE: 11 Strata: 3 Discharge date: 11/23/20 Call date: 11/25/20 Call time: [phone] Attempted to reach pt without success, message left for pt to call this RN CM back if/when able. SStaten RN CM Admission dx: CHF
== END 2020-11-23 17:43 | disposition home or self-care (01) | DRG 291 ==
LOC: ED 08:59 → PCU 10:17
PROVIDERS: Internal Medicine Nephrology; Emergency Provider Emergency Medicine; PCP Family Medicine
DX: I13.2 Hypertensive heart and chronic kidney disease with heart failure and with stage 5 chronic kidney disease, or end stage renal disease (principal); I50.31 Acute diastolic (congestive) heart failure; N18.5 Chronic kidney disease, stage 5; E11.22 Type 2 diabetes mellitus with diabetic chronic kidney disease; D63.1 Anemia in chronic kidney disease; K59.00 Constipation, unspecified; E87.5 Hyperkalemia; D50.9 Iron deficiency anemia, unspecified; Z79.4 Long term (current) use of insulin; Z79.899 Other long term (current) drug therapy; Z87.891 Personal history of nicotine dependence; Z86.718 Personal history of other venous thrombosis and embolism
CPT/HCPCS: 36415; 71045; 80048; 80069; 81050; 82306; 82575; 82962; 83540; 83550; 83880; 83970; 84156; 84484; 85025; 93005; 93306; 93970; 97162; 97166; 97802; 97803; 99285; J7050; Q9957; A4216; C8929; J1940; J2916; J3490

== ENCOUNTER → 2020-11-30 17:00 | Outpatient (CLI) | payer MEDICARE, MEDICAID, SELFPAY ==
[2020-11-20 10:52] VITALS: BMI 39.9
[2020-11-30 18:16] LABS: Anion Gap 4 (5-15); BUN 43 mg/dL (7-18); BUN/Creat Ratio 10.8 RATIO (10-20); Calcium,Total 8.4 mg/dL (8.5-10.1); Chloride 111 mmol/L (98-107); EST Glomerular Filtration Rate 16 mL/min (>60); Est Glom Filt Rate - Afr Amer 20 mL/min (>60); Glucose 80 mg/dL (74-106); Potassium 4.7 mmol/L (3.5-5.1); Sodium Level 140 mmol/L (136-145)
== END ==
PROVIDERS: PCP Family Medicine; Referring Provider Family Medicine; Visit Provider Family Medicine
DX: I50.30 Unspecified diastolic (congestive) heart failure (principal)
CPT/HCPCS: 36415; 80048

== ENCOUNTER → 2021-01-13 16:47 | Outpatient (CLI) | payer MEDICARE, MEDICAID, SELFPAY ==
[2021-01-13 18:04] LABS: ALB/GLOB Ratio 0.9 RATIO (0.9-2.4); AST(SGOT) 16 U/L (15-37); Alanine Aminotransfer ALT/SGPT 18 U/L (16-61); Albumin, Serum 3.2 g/dL (3.2-5.0); Alkaline Phosphatase 103 U/L (45-117); Anion Gap 5 (5-15); BUN 40 mg/dL (7-18); BUN/Creat Ratio 9.8 RATIO (10-20); Calcium,Total 8.2 mg/dL (8.5-10.1); Chloride 114 mmol/L (98-107); Creatinine, Serum 4.07 mg/dL (0.70-1.30); EST Glomerular Filtration Rate 16 mL/min (>60); Est Glom Filt Rate - Afr Amer 19 mL/min (>60); Globulin 3.7 g/dL (2.2-4.2); Glucose 92 mg/dL (74-106); Magnesium 2.3 mg/dL (1.6-2.6); Potassium 4.8 mmol/L (3.5-5.1); Protein, Total 6.9 g/dL (6.4-8.2); Sodium Level 141 mmol/L (136-145)
== END ==
PROVIDERS: PCP Family Medicine; Visit Provider Family Medicine
DX: E11.59 Type 2 diabetes mellitus with other circulatory complications (principal); R19.7 Diarrhea, unspecified
CPT/HCPCS: 36415; 80053; 83735

== ENCOUNTER 2021-01-21 08:50 | Day surgery (SDC) | payer MEDICARE, MEDICAID, SELFPAY ==
[2020-12-30 05:56] VITALS: BMI 38.8
[2021-01-21] VITALS (11 sets, daily range): BP systolic 105–128; BP diastolic 61–69; PULSE 63–71; RESP 16–18; TEMP 36.2–36.6; O2SAT 90–99; BMI 36.3
[2021-01-21 09:33] LABS: Hematocrit 26.2 % (40-54); Hemoglobin 8.6 g/dL (13.0-16.5); Mean Corp Hgb Conc 32.8 g/dL (32-36); Mean Corpuscular Hgb 27.8 pg (27.0-32.0); Mean Corpuscular Volume 84.8 fL (80-94); Mean Platelet Vol. 10.4 fl (6.2-12.0); Platelet Count 202 K/mm3 (150-450); RBC Distribution Width SD 43.3 fl (35.1-43.9); Red Blood Count 3.09 M/mm3 (4.6-6.2); White Blood Count 6.6 K/mm3 (4.4-11.0)
--- NOTE | 2021-01-21 09:41 | PCM.HP.BLA ---
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 Research Required: No Is patient in pain?: No Allergies escitalopram [From Lexapro] Allergy (Verified 12/30/20 08:50) Unknown sertraline [From Zoloft] Allergy (Verified 12/30/20 08:50) Unknown lisinopril Adverse Reaction (Severe, Verified 12/30/20 08:50) Cough Medications nitroglycerin 0.4 mg SUBLINGUAL Q5M PRN 06/30/15 [History Confirmed 12/30/20] insulin degludec 42 unit SQ DAILY 02/20/17 [History Confirmed 12/30/20] aspirin 81 mg PO DAILY #0 07/09/18 [Rx Confirmed 12/30/20] amlodipine 10 mg tablet 10 mg PO DAILY 02/10/20 [History Confirmed 12/30/20] cholecalciferol (vitamin D3) 1,250 mcg (50,000 unit) capsule 1,250 mcg PO QWEEK 02/10/20 [History Confirmed 12/30/20] cyanocobalamin (vitamin B-12) 1,000 mcg capsule 1,000 mcg PO DAILY 02/10/20 [History Confirmed 12/30/20] guanfacine 1 mg tablet 1 mg PO DAILY 02/10/20 [History Confirmed 12/30/20] hydralazine 100 mg PO TID tab 04/09/20 [Rx Confirmed 12/30/20] insulin lispro See Protocol SC ACHS insuln.pen 04/09/20 [Rx Confirmed 12/30/20] carvedilol [Coreg] 12.5 mg PO BID 11/20/20 [History Confirmed 12/30/20] furosemide 40 mg PO BID@1000,1800 11/20/20 [History Confirmed 12/30/20] ferrous sulfate 325 mg PO QODAY #0 tab 11/23/20 [Rx Confirmed 12/30/20] guaifenesin [Mucus Relief ER] 600 mg PO BID #10 tab 11/23/20 [Rx Confirmed 12/30/20] sodium bicarbonate 650 mg PO BID #60 tab 11/23/20 [Rx Confirmed 12/30/20] [facility] Medical History (Updated 11/23/20 @ 15:[address] Kandis Sanford DO) Atherosclerotic heart disease of [place] coronary artery without angina pectoris Chronic kidney disease (CKD) DVT of lower extremity (deep venous thrombosis) (09/2018) Essential (primary) hypertension Hyperlipidemia Obesity (BMI 30.0-34.9) Old inferior wall myocardial infarction Problem with dialysis access Tear of lateral meniscus of left knee Tear of medial meniscus of left knee TIA (transient ischemic attack) (09/19/18) Type 2 diabetes mellitus Vitreous hemorrhage, bilateral Surgical History H/O abdominal surgery History of coronary artery stent placement (06/17/15) Family History Father blood clot Sister CVA (cerebral vascular accident) Mother Diabetes Social History Smoking Status: Former smoker alcohol intake: current alcohol intake frequency: a few times a week Alcohol type: beer substance use type: does not use caffeine: Yes Type: coffee Number of servings: 3 what type of physical activity do you participate in: none seatbelt use: always do you feel safe at home: Yes HPI HPI HPI: BRI HERNANDEZ, is a 65 M who presents to the office today for surgical consultation regarding arteriovenous hemodialysis fistula creation. The patient was initially referred May 25, 2020. He has failed to cancel and failed to appear on multiple appointments. His most recent [facility] hospitalization was November 20 through November 23, 2020. At that time his discharge diagnoses include acute kidney failure, diastolic congestive heart failure, hyperkalemia, type 2 diabetes mellitus, iron deficiency anemia. At that time he had complicated chronic kidney disease stage V. Another was referral was made for the patient to see me and he failed to appear for that appointment as well He is not yet on hemodialysis again. Although he was hospitalized he did not require replacement of tunneled dialysis catheters. He is right arm dominant. Unfortunately with his most recent hospitalization he had multiple IVs placed in the left forearm cephalic vein November 23, 2020 Reason For Study: AV fistula Right Arm Left Arm Right cephalic vein is compressible. Left cephalic vein is compressible. Right Cephalic Vein at the shoulder Left Cephalic Vein at the shoulder measures .53 x .52 cm. measures .49 x .49 cm. Right Cephalic Vein mid bicep measures .45 Left Cephalic Vein at mid bicep measures .47 x .47 cm. x .49 cm. Right Cephalic Vein above antecub Left Cephalic Vein above antecub measures .45 measures .46 x .44 cm. x .44 cm. Right Cephalic Vein below antecub Left Cephalic Vein below antecub measures .3 measures .21 x .21 cm. x .31 cm. Right Cephalic Vein in the forearm Left Cephalic Vein in the forearm measures .12 x .16 cm. measures .38 x .42 cm. Right Cephalic Vein at the wrist measures .16 Left Cephalic Vein at the wrist measures .38 x .19 cm. x .41 cm. Right basilic vein is compressible. Basilic vein at bicep measures .47 x .46 cm. Right Basilic Vein mid bicep measures .58 Basilic vein above antecub measures .25 x .26 x .64 cm. cm. Right Basilic Vein above antecub measures .58 Basilic vein below antecub measures .24 x .26 x .6 cm. cm. Right Basilic Vein below antecub measures .36 Basilic vein in the forearm measures .07 x .37 cm. x .09 cm. Right Basilic Vein in the forearm Basilic vein at the wrist measures .06 x .06 measures .34 x .38 cm. cm. Right Basilic Vein at the wrist measures .27 Brachial Art .43 x .43 cm. x .32 cm. Brachial Art 110.2 cm/s Brachial Art .44 x .48 cm. Radial Art .14 x .18 cm. Brachial Art 110.3 cm/s Radial Art 138.1 cm/s. Radial Art .15 x .21 cm. Radial Art 93.3 cm/s. VL/Saphenous Vein Mapping, Bilat Interpretation Summary Patent and compressible bilateral upper extremity cephalic and basilic veins with dimensions as noted. Right forearm cephalic vein appears small. Bilateral radial arteries small. Adequate diameter and flow bilateral brachial arteries Ordering Physician: Kandis Sanford Performed By: Stas Rodríguez RVT General General: Yes weight change, fatigue and weakness; No appetite, colon cancer or breast cancer HEENT HEENT: Yes difficulty swallowing and eye surgery; No eye injury, swollen glands or hoarseness Endo Endocrine: Yes diabetes mellitus; No thyroid disease, thyroid cancer, Hair loss, heat intolerance or cold intolerance Skin Skin: No rash or changing moles Breast Breast: No left breast lump, right breast lump, nipple discharge, breast pain, abnormal mammogram, abnormal US or breast enlargement Musc Musculoskeletal: No back problems, arthritis, rheumatoid arthritis, gout or joint pain Cardio Cardiovascular: Yes heart disease, high blood pressure, heart attack, heart stent and shortness of breat with exertion; No murmur, pacemaker, atrial fibrillation, palpitations or chest pain Psych Psychiatric: Yes depression and anxiety; No hearing voices Resp Respiratory: Yes shortness of breath, No sleep apnea, Yes cough, No COPD, No asthma, No emphysema and No wheezing Gastro Gastrointestinal: No abdominal pain, No nausea or vomiting, No diarrhea, No constipation, No blood in stool, No acid reflux, No hemorrhoids, No ulcers, No gallbladder problem and No black,tarry stools Kyle Hematologic: Yes blood thinners, No blood disorders, No bleeding, No anemia and No blood clots Neuro Neurologic: No system reviewed and no additional complaints, except as documented, No as per HPI, No abnormal gait, No abnormal hearing, No abnormal movements, No abnormal speech, No behavioral changes, No burning sensations, No confusion, No convulsions, No disequilibrium, No dizziness, No localized weakness, No frequent falls, No headache(s), No lack of coordination, No loss of vision, No memory loss, No numbness, No other visual disturbances, No radicular pain, No restless legs, No sensory deficit, No syncope, No tingling, No tremor(s), Yes weakness and No other Exam Const General: cooperative, comfortable and no acute distress Cardio Other: Well-healed surgical incision right groin. No palpable masses, nontender, no ecchymosis, 3+ bilateral femoral pulses GI Palpation: soft and no hepatosplenomegaly Other: Not pulsatile or expansile Assessment and Plan Assessment and Plan (1) CKD stage 4 due to type 2 diabetes mellitus: Status: Chronic Plan - Dr. Warren Valencia MD: Upon inspection unfortunately the left forearm cephalic vein appears to be thick-walled. There is a branching distally and branching in the mid forearm. In addition unfortunately he does not have a easily palpable left radial pulse consistent with medial calcification of that vessel. With this in mind he does have a patent compressible left upper arm cephalic vein. He has a nicely patent 3+ left brachial artery. He is overweight. I do propose for him a left upper arm transposed cephalic vein to brachial artery arteriovenous hemodialysis fistula creation. It is more of the mid to distal cephalic vein of the upper arm that will require transposed. I will anticipate performing ultrasound inspection of that vein at the time of the surgery and al out the distance as the vein is relatively close to the surface in the proximal third of the upper arm. He is aware of the technique, benefit, risk, alternatives. He is aware that there are no guarantees of success offered. He is on a low-dose aspirin and he will continue that medication including his other medications. He has had an opportunity to ask and have questions answered we will schedule procedure at his discretion. Copy: Dr. Kandis Sanford and Dr Gene Valencia M.D., F.A.C.S. I have re-examined the patient. There are no clinical changes since date of exam. Warren Vaelncia M.D., F.A.C.S.
--- NOTE | 2021-01-21 09:42 | EX.PCM.DISCH ---
Discharge Instructions Procedure Fistula Diet Discharge Diet: Renal Diet Activity Discharge Activity: May Not Drive (for 2-3 days or while taking narcotic pain medications.), May Shower and May Take a Tub Bath (in 5 days.) Lifting Restrictions: 5 pounds Keep extremity elevated above heart level: - (Keep arm elevated above the heart level for 3 days.) Dressing / Incision Call your doctor if your incision/area has: Continuous Slow Oozing, Sudden Increased Bleeding (apply pressure and call your doctor.), Increased Pain/ Swelling, Increased Redness and Foul Smelling Discharge Call your doctor if you observe: Fever of 101 or Higher Suture Line Care: Avoid Pulling/Pushing and Avoid Pinching/Bending Cleanse incision/area with: Keep Dressing Clean & Dry Additional Dressing/Incision Instructions:: Change or remove dressing in one day. May protect with a gauze bandaid. Follow Up Care Please Follow Up With: Warren Valencia MD When: Call [phone] to make an appointment for suture removal and follow up in 1 week. Test Results: Test results from this visit will be discussed in further detail at your follow-up appointment, if applicable. Discharge Plan Admission Attending Provider: Warren Valencia Primary Care Provider: Gene Miller Discharge Orders/Prescriptions Prescriptions: No Action nitroglycerin 0.4 MG tablet 0.4 mg SUBLINGUAL Q5M PRN (Reason: Chest Pain) RF: 0 insulin degludec 200 UNIT/ML insulin pen 15 unit SQ DAILY RF: 0 aspirin 81 MG tablet 81 mg PO DAILY Qty: 0 RF: 0 hydralazine 50 MG tablet 100 mg PO TID RF: 0 carvedilol [Coreg] 25 mg tablet 12.5 mg PO BID RF: 0 furosemide 80 MG tablet 40 mg PO BID@1000,1800 RF: 0 guaifenesin [Mucus Relief ER] 600 mg Tablet Extended Release 12hr 600 mg PO BID Qty: 10 RF: 0 sodium bicarbonate 650 mg Tablet 650 mg PO BID Qty: 60 RF: 0 ferrous sulfate 325 MG tablet 325 mg PO QODAY Qty: 0 RF: 0 amlodipine [Norvasc] 10 mg tablet 10 mg PO DAILY RF: 0 guanfacine 1 mg tablet 1 mg PO DAILY RF: 0 cholecalciferol (vitamin D3) 1,250 mcg (50,000 unit) capsule 1,250 mcg PO QWEEK RF: 0 cyanocobalamin (vitamin B-12) 1,000 mcg capsule 1,000 mcg PO DAILY RF: 0
[2021-01-21 09:49] LABS: Anion Gap 6 (5-15); BUN 40 mg/dL (7-18); BUN/Creat Ratio 10.1 RATIO (10-20); Calcium,Total 7.9 mg/dL (8.5-10.1); Chloride 112 mmol/L (98-107); Creatinine, Serum 3.96 mg/dL (0.70-1.30); EST Glomerular Filtration Rate 16 mL/min (>60); Est Glom Filt Rate - Afr Amer 20 mL/min (>60); Estimated Creatinine Clearance 17.99 ml/min; Glucose 94 mg/dL (74-106); Potassium 4.7 mmol/L (3.5-5.1); Sodium Level 140 mmol/L (136-145)
[2021-01-21 09:57] LABS: Bedside Glucose 89 mg/dL (70-110)
[2021-01-21] MEDS: Cefazolin 2 GM in 0.9% Normal Saline 100 ML IV (10:28)
[2021-01-21] MEDS: Bupivacaine Mpf 0.5% 30 ML VIAL (10:50)
[2021-01-21] MEDS: Lidocaine 1% (30 ml sdv) 30 ML Vial (10:50)
[2021-01-21] MEDS: Heparin Injection (Vial) 5,000 UNIT/ML VIAL 5000 UNIT (10:55)
[2021-01-21] MEDS: Lidocaine 0.5% (50 ml) 50 ML Vial (11:00)
--- NOTE | 2021-01-21 12:30 | OP.PCM_ITS ---
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 65-year-old gentleman was taken to the operating placed upon the table underwent monitored anesthesia care. Ancef 2 g were given intravenously. The left extremity sterilely prepped and draped. 1% lidocaine mixed 50-50 with 0.5% Marcaine was used as a local anesthetic. Total of 14 cc was used. In addition 6 cc of half percent lidocaine was used. The vein was mapped out with ultrasound prior to starting. The left upper semiwas sterilely prepped and draped. Local was instilled. A longitudinal incision was started at the antecu bital space and carried proximally the left upper arm as the cephalic vein was identified. It was sharply and bluntly dissected free. Side branches were secured with hemoclips. Finally toward the upper arm it became more superficial and I could dissect underneath the skin and elevate the vein in that fashion. I then measured the length of the vein at a branch point at the antecubital space. I transected it there with hemoclips and used a branch point to make a spatulation. I then made a longitudinal incision directly over the brachial artery just proximal to the antecubital space and sharp blunt sections used to identify the brachial artery which was dissected free circumferentially.. The tunneler was then placed from this spot up to the proximal left upper arm and the vein was carefully tunneled close to the subdermal space. Having achieved that the patient received 10,000 units of heparin. Peripheral vascular clamps were placed on the brachial artery and an arteriotomy was made with an 11 blade and Andrade scissors. A end-to-side anastomosis was created with a running 7-0 Prolene. Prior to completion there was good antegrade retrograde flow. 1 repair suture of 7-0 Prolene was needed. The patient received 30 mg of protamine as reversal. The vein appeared to have a very good positional lie. There is a good pulse and thrill and bruit. The hand was viable. There is a excellent triphasic flow at the ulnar artery. The wound was then closed with a deep layer of interrupted 3-0 Vicryl. Skin edges proximal and running septic or 4-0 Monocryl. Steri-Strips Telfa tape soft roll and Eb wrap applied. Sponge and instrument and needle counts were reported to certainly be correct. Specimens none. Drains none. Blood loss minimal. The patient was taken to recovery area in satisfactory addition apparent complication Warren Valencia M.D., F.A.C.S. Surgeon: Warren Valencia Type of Anesthesia: Local MAC Anesthesiologist: Yasmani Sullivan
[2021-01-21 13:25] LABS: Bedside Glucose 132 mg/dL (70-110)
== END 2021-01-21 16:30 | disposition home or self-care (01) ==
LOC: SDC 08:54 → AC 08:55
PROVIDERS: PCP Family Medicine; Referring Provider Surgery; Visit Provider Surgery
PROC: (CPT 36818; principal; 2021-01-21 10:45)
DX: I13.0 Hypertensive heart and chronic kidney disease with heart failure and stage 1 through stage 4 chronic kidney disease, or unspecified chronic kidney disease (principal); E11.22 Type 2 diabetes mellitus with diabetic chronic kidney disease; N18.4 Chronic kidney disease, stage 4 (severe); I50.32 Chronic diastolic (congestive) heart failure; I25.10 Atherosclerotic heart disease of native coronary artery without angina pectoris; E78.5 Hyperlipidemia, unspecified; E66.9 Obesity, unspecified; Z86.73 Personal history of transient ischemic attack (TIA), and cerebral infarction without residual deficits; Z68.36 Body mass index [BMI] 36.0-36.9, adult; Z79.4 Long term (current) use of insulin; Z79.899 Other long term (current) drug therapy; Z87.891 Personal history of nicotine dependence
CPT/HCPCS: 36818; 80048; 82962; 85027; 93005; J7040; J2405

== ENCOUNTER → 2021-01-27 11:20 | Outpatient (CLI) | payer MEDICARE, MEDICAID, SELFPAY ==
[2021-01-27 11:50] LABS: Hemoglobin 7.8 g/dL (13.0-16.5); Mean Corp Hgb Conc 31.2 g/dL (32-36); Mean Corpuscular Hgb 27.6 pg (27.0-32.0); Mean Corpuscular Volume 88.3 fL (80-94); Mean Platelet Vol. 10.3 fl (6.2-12.0); Platelet Count 169 K/mm3 (150-450); RBC Distribution Width SD 45.5 fl (35.1-43.9); Red Blood Count 2.83 M/mm3 (4.6-6.2); White Blood Count 6.3 K/mm3 (4.4-11.0)
[2021-01-27 12:47] LABS: PTHIN 204.7 pg/mL (18.4-80.1)
[2021-01-27 12:51] LABS: Albumin, Serum 2.4 g/dL (3.2-5.0); BUN 49 mg/dL (7-18); Calcium,Total 7.9 mg/dL (8.5-10.1); Chloride 112 mmol/L (98-107); Creatinine, Serum 4.44 mg/dL (0.70-1.30); EST Glomerular Filtration Rate 14 mL/min (>60); Est Glom Filt Rate - Afr Amer 17 mL/min (>60); Ferritin 230 ng/mL (26-388); Glucose 202 mg/dL (74-106); Iron 38 ug/dL (65-175); Iron Binding Capacity,Total 198 ug/dL (250-450); Phosphorus 4.1 mg/dL (2.5-4.9); Potassium 4.4 mmol/L (3.5-5.1); Sodium Level 141 mmol/L (136-145)
== END ==
PROVIDERS: PCP Family Medicine; Referring Provider Internal Medicine Nephrology; Visit Provider Internal Medicine Nephrology
DX: N18.4 Chronic kidney disease, stage 4 (severe) (principal); D50.9 Iron deficiency anemia, unspecified; D63.1 Anemia in chronic kidney disease
CPT/HCPCS: 36415; 80069; 82728; 83540; 83550; 83970; 85027

== ENCOUNTER 2021-02-27 05:44 | Inpatient (IN) | payer MEDICARE, MEDICAID, SELFPAY ==
[2021-02-27] VITALS (14 sets, daily range): BP systolic 138–159; BP diastolic 66–76; PULSE 73–83; RESP 16–19; TEMP 36.6–37.2; O2SAT 92–95; BMI 38.4; BMI 37.5
--- NOTE | 2021-02-27 05:53 | RAD_ITS ---
STUDY: X-RAY CHEST REASON FOR EXAM: Male, 65 years old. chest pain TECHNIQUE: Single AP portable view of the chest. COMPARISON: 11/20/2020 FINDINGS: The lungs are clear and expanded. No change in the tiny left pleural effusion. There is moderate cardiac enlargement. Normal mediastinum and lydia. There is prominence of the pulmonary hilar arteries and peripheral pulmonary arteries, consistent with congestive heart failure (CHF). Normal visualized aortic arch and descending thoracic aorta. Normal visualized thoracic spine. Normal visualized ribs, clavicles, and shoulders. There is no demonstrated abnormality of the visualized soft tissue structures of the upper abdomen. RAD/Chest 1 View (Portable) IMPRESSION: Suspect volume overload. Electronically Signed: Kraig Barros MD at 7:12 EDT Tel , Service support ,
--- NOTE | 2021-02-27 05:53 | EKG12_ITS ---
Test Reason : DYSRYTHMIA Blood Pressure : / mmHG Vent. Rate : 080 BPM Atrial Rate : 080 BPM P-R Int : 244 ms QRS Dur : 108 ms QT Int : 406 ms P-R-T Axes : 048 021 070 degrees QTc Int : 468 ms Sinus rhythm with 1st degree A-V block Otherwise normal ECG Confirmed by VANESSA CASILLAS, ROYAL ([id number]), primer expeditor and drier MAYNOR TREVIZO ([id number]) on 02/28/2021 12:52:47 PM Referred By: ROSALBA Confirmed By:ROYAL MENDEZ MD
--- NOTE | 2021-02-27 06:01 | EDS_ITS ---
HPI History of Present Illness Chief Complaint: Shortness of Breath Informant: patient and EMS Narrative Narrative: Patient is a 65-year-old male with complex medical history presenting with worsening shortness of breath and right arm pain. Patient states has been short of breath since she had Covid in April 2020. However, over the past week his shortness of breath is worsened. He notes he is having to sleep in a recliner because he gets too short of breath when he tries to lay down. Tonight he woke up and had pain in his right arm. He called 911 and took a nitroglycerin. This did resolve his arm pain. Patient is currently getting prepared for hemodialysis and actually had a fistula placed by Dr. Valencia on 01/21/21. Patient notes he has had increased swelling of his legs and feels that he is retaining water. He states he is been compliant with his medications and continue to have urine output. Denies any fever or chills. Is a cough but is nonproductive. Patient is epigastric region states that he feels that he has a lump there but is been there since 1993. He has no other complaints at this time. [facility] Medical History Ambulates with cane Atherosclerotic heart disease of [place] coronary artery without angina pectoris Cardiology follow-up encounter Chronic cough Chronic kidney disease (CKD) Depression Diabetes DVT (deep venous thrombosis) DVT of lower extremity (deep venous thrombosis) (09/2018) Essential (primary) hypertension Former smoker Gastric reflux Hemodialysis access site with arteriovenous graft High cholesterol History of echocardiogram History of edema History of meniscal tear History of renal disease History of stress test Hyperlipidemia Insulin dependent diabetes mellitus Obesity (BMI 30.0-34.9) Old inferior wall myocardial infarction Problem with dialysis access Sleep apnea Tear of lateral meniscus of left knee Tear of medial meniscus of left knee TIA (transient ischemic attack) (09/19/18) Type 2 diabetes mellitus Vitreous hemorrhage, bilateral Home Medications nitroglycerin 0.4 mg SUBLINGUAL Q5M PRN 06/30/15 [History Last Taken 09/30/17 0.4 MG] insulin degludec 15 unit SQ DAILY 02/20/17 [History Last Taken 10/15/18 07:15] aspirin 81 mg PO DAILY #0 07/09/18 [Rx Last Taken 10/15/18 07:00] amlodipine 10 mg tablet 10 mg PO DAILY 02/10/20 [History Last Taken 01/21/21 07:45] cholecalciferol (vitamin D3) 1,250 mcg (50,000 unit) capsule 1,250 mcg PO QWEEK 02/10/20 [History Last Taken 11/15/20] cyanocobalamin (vitamin B-12) 1,000 mcg capsule 1,000 mcg PO DAILY 02/10/20 [History Last Taken Unknown] guanfacine 1 mg tablet 1 mg PO DAILY 02/10/20 [History Last Taken Unknown] hydralazine 100 mg PO TID tab 04/09/20 [Rx Last Taken 01/21/21 07:45] carvedilol [Coreg] 12.5 mg PO BID 11/20/20 [History Last Taken 01/21/21 07:45] furosemide 40 mg PO BID@1000,1800 11/20/20 [History Last Taken Unknown] ferrous sulfate 325 mg PO QODAY #0 tab 11/23/20 [Rx Last Taken Unknown] guaifenesin [Mucus Relief ER] 600 mg PO BID #10 tab 11/23/20 [Rx Last Taken Unknown] sodium bicarbonate 650 mg PO BID #60 tab 11/23/20 [Rx Last Taken Unknown] hydrocodone-acetaminophen 1 tab PO Q8H PRN 2 Days #5 tab 01/21/21 [Rx Last Taken Unknown] Allergy/AdvReac Type Severity Reaction Status Date / Time escitalopram [From Lexapro] Allergy Unknown Verified 02/27/21 05:49 sertraline [From Zoloft] Allergy Unknown Verified 02/27/21 05:49 lisinopril AdvReac Severe Cough Verified 02/27/21 05:49 Family History Father blood clot Sister CVA (cerebral vascular accident) Mother Diabetes Surgical History H/O abdominal surgery History of cardiac catheterization History of coronary artery stent placement (06/17/15) Hx of hernia repair Social History Smoking Status: Former smoker alcohol intake: current alcohol intake frequency: a few times a week Alcohol type: beer substance use type: does not use caffeine: Yes Type: coffee Number of servings: 3 what type of physical activity do you participate in: none seatbelt use: always do you feel safe at home: Yes ROS ROS ED Constitutional Constitutional ED: Denies chills or fever(s) Eyes Eyes: Denies change in vision Cardiovascular Cardiovascular: Reports orthopnea; Denies chest pain or palpitations Respiratory/Chest Respiratory/Chest: Reports cough, dyspnea, dyspnea on exertion and orthopnea; Denies sputum Gastrointestinal Gastrointestinal: Reports melena and nausea; Denies abdominal pain or vomiting Genitourinary Genitourinary ED: Denies dysuria or hematuria Musculoskeletal Musculoskeletal: Reports other Details: right arm pain ; Denies arthralgias or myalgias Integumentary Denies rash Neurologic Neurologic: Reports weakness; Denies headache(s) Psychiatric Psychiatric: Denies depression EXAM Physical Exam Const Vital Signs: 02/27/21 05:46 02/27/21 05:50 02/27/21 06:21 Temperature 98.6 F Temperature Source Oral Pulse Rate 82 Respiratory Rate 18 19 H Respiratory Effort Short of Breath Respiratory Pattern Normal Blood Pressure 159/73 H Blood Pressure Mean 101 Pulse Ox 95 93 Oxygen Delivery Method Room Air Room Air Room Air 02/27/21 06:37 Temperature Temperature Source Pulse Rate Respiratory Rate Respiratory Effort Respiratory Pattern Blood Pressure Blood Pressure Mean Pulse Ox 94 Oxygen Delivery Method Room Air Positive well nourished and well developed General Appearance ED: well developed HEENT Reports moist mucous membranes Negative for trauma Eyes PERRL and EOMs intact bilaterally Neck supple and no JVD Chest Wall inspection of chest normal Resp normal respiratory effort Auscultation: diminished lung sounds bilateral lower Cardio regular rate, regular rhythm and no murmurs Rate: other Other Details: AV fistula in the left AC?palpable thrill present GI normal to inspection, nondistended, normoactive bowel sounds and non-tender Extremity General Extremety ED: Yes edema General Extremity: edema Neuro oriented x3, CN's II-XII intact bilaterally and no sensory deficits noted Sensorium / Orientation: alert Motor Exam: Negative for general weakness Psych mental status grossly normal Skin no rashes or lesions noted and no wounds MDM MDM MDM Narrative Medical decision making narrative: Patient is evaluated for an episode of right arm pain that resolved with nitro as well as increased shortness of breath, orthopnea and edema. Patient clinically appears fluid overloaded. EKG does not show any ischemic changes. His pain has resolved so therefore he is not given more nitroglycerin. His CBC is at his baseline and his anemia is chronic. Rectal exam was performed as he has been having dark stools and it was not consistent with melena.BMP is also at his baseline with no hyperkalemia and his baseline creatinine. BNP is elevated. Patient is given IV Lasix and aspirin in the ER. He will be admitted for anginal equivalent as well as fluid overload/CHF exacerbation. Patient is agreeable with this plan of care. He is hemodynamically stable in the emergency room. Lab Data Attestation: I reviewed the patient's lab results. Labs: Laboratory Results - last 24 hr 02/27/21 06:15 Sodium 141 Potassium 4.4 Chloride 111 H Carbon Dioxide 21.0 Anion Gap 9 BUN 49 H Creatinine 4.36 H Estim Creat Clear Calc 16.89 Est GFR (MDRD) Af Amer 18 L Est GFR (MDRD) Non-Af 15 L BUN/Creatinine Ratio 11.2 Glucose 120 H Calcium 8.1 L Magnesium 2.5 Troponin I High Sens 17 Radiography Chest X-Ray - ED: 1 View, Read by ED Physician, Read by Radiologist and CHF Rhythm Strip Rhythm Strip: Sinus Rhythm Rate: 80 Ectopy: None EKG Initial EKG: Attestation: I personally reviewed and interpreted this EKG as follows: Interpretation: Sinus Rhythm Comments: Normal sinus rhythm at a rate of 80 with first-degree AV block [place] interval 244 Normal axis Normal intervals Normal ST segments Discharge Plan Triage Chief Complaint: Shortness of Breath ED Provider: Myriam Choi Dx/Rx/DC Orders Clinical Impression: (HFpEF) heart failure with preserved ejection fraction, CHF exacerbation, Anginal equivalent Prescriptions: No Action nitroglycerin 0.4 MG tablet 0.4 mg SUBLINGUAL Q5M PRN (Reason: Chest Pain) RF: 0 insulin degludec 200 UNIT/ML insulin pen 15 unit SQ DAILY RF: 0 aspirin 81 MG tablet 81 mg PO DAILY Qty: 0 RF: 0 hydralazine 50 MG tablet 100 mg PO TID RF: 0 carvedilol [Coreg] 25 mg tablet 12.5 mg PO BID RF: 0 furosemide 80 MG tablet 40 mg PO BID@1000,1800 RF: 0 guaifenesin [Mucus Relief ER] 600 mg Tablet Extended Release 12hr 600 mg PO BID Qty: 10 RF: 0 sodium bicarbonate 650 mg Tablet 650 mg PO BID Qty: 60 RF: 0 ferrous sulfate 325 MG tablet 325 mg PO QODAY Qty: 0 RF: 0 hydrocodone-acetaminophen 5-325 mg tablet 1 tab PO Q8H PRN (Reason: pain) 2 Days Qty: 5 RF: 0 amlodipine [Norvasc] 10 mg tablet 10 mg PO DAILY RF: 0 guanfacine 1 mg tablet 1 mg PO DAILY RF: 0 cholecalciferol (vitamin D3) 1,250 mcg (50,000 unit) capsule 1,250 mcg PO QWEEK RF: 0 cyanocobalamin (vitamin B-12) 1,000 mcg capsule 1,000 mcg PO DAILY RF: 0 Primary Care Provider: Gene Miller Referrals: Gene Miller MD [Primary Care Provider] - Disposition Disposition: Acute Care Hospital [facility]
[2021-02-27 06:35] LABS: Absolute Lymphocyte Count 0.83 X10^3/uL (0.83-4.51); Absolute Neutrophil Count 4.9 X10^3/uL (2.0-7.7); Basophil# 0.06 X10^3/uL; Basophil% 0.8 % (0-1); Eosinophil# 0.47 X10^3/uL; Eosinophils% 6.5 % (0-5); Hematocrit 27.1 % (40-54); Hemoglobin 8.5 g/dL (13.0-16.5); Lymphocyte # 0.83 X10^3/ul (0.83-4.51); Lymphocyte % 11.5 % (19-41); Mean Corp Hgb Conc 31.4 g/dL (32-36); Mean Corpuscular Hgb 28.4 pg (27.0-32.0); Mean Corpuscular Volume 90.6 fL (80-94); Mean Platelet Vol. 11.3 fl (6.2-12.0); Monocyte# 0.93 X10^3/uL; Monocyte% 12.8 % (0-10); NRBC Flagged by Analyzer 0 % (0-5); Neutrophil # 4.93 X10^3/uL (2.7-7.7); Neutrophil % 68.1 % (47-70); POSITIVE COUNT YES; Platelet Count 157 K/mm3 (150-450); RBC Distribution Width CV 14.8 % (11.6-14.6); RBC Distribution Width SD 48.9 fl (35.1-43.9); Red Blood Count 2.99 M/mm3 (4.6-6.2); White Blood Count 7.2 K/mm3 (4.4-11.0)
[2021-02-27 06:53] LABS: Anion Gap 9 (5-15); BUN 49 mg/dL (7-18); BUN/Creat Ratio 11.2 RATIO (10-20); Calcium,Total 8.1 mg/dL (8.5-10.1); Chloride 111 mmol/L (98-107); Creatinine, Serum 4.36 mg/dL (0.70-1.30); EST Glomerular Filtration Rate 15 mL/min (>60); Est Glom Filt Rate - Afr Amer 18 mL/min (>60); Estimated Creatinine Clearance 16.89 ml/min; Glucose 120 mg/dL (74-106); Magnesium 2.5 mg/dL (1.6-2.6); Potassium 4.4 mmol/L (3.5-5.1); Sodium Level 141 mmol/L (136-145); Troponin-I HS 17 pg/mL (3.0-78.0)
[2021-02-27 07:14] LABS: Differential Indicated SCAN CRITERIA MET
--- NOTE | 2021-02-27 07:21 | PCM.HP.STD ---
[facility] - General General Date of Admission: 02/27/21 Date of Service: 02/27/21 Chief Complaint: Shortness of breath HPI Narrative BRI HERNANDEZ, is a 65 M with past medical history signal for diabetes mellitus type 2, chronic kidney disease stage V, congestive heart failure with preserved ejection fraction who presents with shortness of breath. Patient reports having developed shortness of breath following his diagnosis of Covid in April 2020. He did notice increasing swelling involving both lower extremities as well as his abdomen. He subsequently presented to the emergency department. An assessment of acute congestive heart failure made admitted to a monitored bed for further management [facility] Medical History Ambulates with cane Atherosclerotic heart disease of [place] coronary artery without angina pectoris Cardiology follow-up encounter Chronic cough Chronic kidney disease (CKD) Depression Diabetes DVT (deep venous thrombosis) DVT of lower extremity (deep venous thrombosis) (09/2018) Essential (primary) hypertension Former smoker Gastric reflux Hemodialysis access site with arteriovenous graft High cholesterol History of echocardiogram History of edema History of meniscal tear History of renal disease History of stress test Hyperlipidemia Insulin dependent diabetes mellitus Obesity (BMI 30.0-34.9) Old inferior wall myocardial infarction Problem with dialysis access Sleep apnea Tear of lateral meniscus of left knee Tear of medial meniscus of left knee TIA (transient ischemic attack) (09/19/18) Type 2 diabetes mellitus Vitreous hemorrhage, bilateral Home Medications nitroglycerin 0.4 mg SUBLINGUAL Q5M PRN 06/30/15 [History Last Taken 09/30/17 0.4 MG] insulin degludec 15 unit SQ DAILY 02/20/17 [History Last Taken 10/15/18 07:15] aspirin 81 mg PO DAILY #0 07/09/18 [Rx Last Taken 10/15/18 07:00] amlodipine 10 mg tablet 10 mg PO DAILY 02/10/20 [History Last Taken 01/21/21 07:45] cholecalciferol (vitamin D3) 1,250 mcg (50,000 unit) capsule 1,250 mcg PO QWEEK 02/10/20 [History Last Taken 11/15/20] cyanocobalamin (vitamin B-12) 1,000 mcg capsule 1,000 mcg PO DAILY 02/10/20 [History Last Taken Unknown] guanfacine 1 mg tablet 1 mg PO DAILY 02/10/20 [History Last Taken Unknown] carvedilol [Coreg] 12.5 mg PO BID 11/20/20 [History Last Taken 01/21/21 07:45] ferrous sulfate 325 mg PO QODAY #0 tab 11/23/20 [Rx Last Taken Unknown] furosemide [Lasix] 40 mg PO BID 02/27/21 [History Last Taken Unknown] hydralazine 100 mg PO TID 02/27/21 [History Last Taken Unknown] sodium bicarbonate 650 mg PO BID 02/27/21 [History Last Taken Unknown] Allergy/AdvReac Type Severity Reaction Status Date / Time escitalopram [From Lexapro] Allergy Unknown Verified 02/27/21 05:49 sertraline [From Zoloft] Allergy Unknown Verified 02/27/21 05:49 lisinopril AdvReac Severe Cough Verified 02/27/21 05:49 Family History Father blood clot Sister CVA (cerebral vascular accident) Mother Diabetes Surgical History H/O abdominal surgery History of cardiac catheterization History of coronary artery stent placement (06/17/15) Hx of hernia repair Social History Smoking Status: Former smoker alcohol intake: current alcohol intake frequency: a few times a week Alcohol type: beer substance use type: does not use caffeine: Yes Type: coffee Number of servings: 3 what type of physical activity do you participate in: none seatbelt use: always do you feel safe at home: Yes ROS ROS Narrative GENERAL: denies fever, chills, HEENT: denies headache, sinus congestion, RESPIRATORY: shortness of breath, dyspnea on exertion CARDIAC: denies chest pain, palpitations, orthopnea, GASTROINTESTINAL: denies abdominal pain, nausea, GENITOURINARY: denies dysuria, urgency, frequency, EXTREMITY: denies swelling MUSCULOSKELETAL: denies current joint pain or tenderness NEUROLOGIC: denies focal numbness, weakness, tingling HEMATOLOGIC: denies easy bruising and/or hemorrhage INTEGUMENT: denies rashes PSYCHIATRIC: denies suicidal or homicidal ideation Vital Signs Vital Signs Vital Signs: 02/27/21 05:46 02/27/21 05:50 02/27/21 06:21 Temperature 98.6 F Temperature Source Oral Pulse Rate 82 Respiratory Rate 18 19 H Respiratory Effort Short of Breath Respiratory Pattern Normal Blood Pressure 159/73 H Blood Pressure Mean 101 Pulse Ox 95 93 Oxygen Delivery Method Room Air Room Air Room Air 02/27/21 06:37 Temperature Temperature Source Pulse Rate Respiratory Rate Respiratory Effort Respiratory Pattern Blood Pressure Blood Pressure Mean Pulse Ox 94 Oxygen Delivery Method Room Air Weight Weight: 118 kg Body Mass Index (BMI) 38.4 Physical Exam Narrative GENERAL: cooperative HEENT: Atraumatic; EYES; Anicteric, Normal Conjunctiva NECK; supple, normal thyroid, RESPIRATORY: Diminished to auscultation CARDIOVASCULAR: Regular S1 S2, GI: soft, normoactive bowel sounds, : No Renal angle tenderness; EXTREMITIES: Bipedal edema MUSCULOSKELETAL: no muscle waisting NEURO: Awake; no lateralizing signs. SKIN: No Rash PSYCH; Flat affect Results Lab / Micro Data Result Diagrams: 02/27/21 06:15 02/27/21 06:15 Labs: Laboratory Results - last 24 hr 02/27/21 06:15: WBC 7.2, RBC 2.99 L, Hgb 8.5 L, Hct 27.1 L, MCV 90.6, MCH 28.4, MCHC 31.4 L, RDW Std Deviation 48.9 H, RDW Coeff of Lina 14.8 H, Plt Count 157, MPV 11.3, Immature Gran % (Auto) 0.300, Neut % (Auto) 68.1, Lymph % (Auto) 11.5 L, [place] % (Auto) 12.8 H, Eos % (Auto) 6.5 H, Baso % (Auto) 0.8, Absolute Neuts (auto) 4.9, Absolute Lymphs (auto) 0.83, Nucleated RBC % 0 02/27/21 06:15: Sodium 141, Potassium 4.4, Chloride 111 H, Carbon Dioxide 21.0, Anion Gap 9, BUN 49 H, Creatinine 4.36 H, Estim Creat Clear Calc 16.89, Est GFR (MDRD) Af Amer 18 L, Est GFR (MDRD) Non-Af 15 L, BUN/Creatinine Ratio 11.2, Glucose 120 H, Calcium 8.1 L, Magnesium 2.5, Troponin I High Sens 17 02/27/21 06:15: B-Natriuretic Peptide 393.0 H Rhythm Strip Rhythm Strip: Sinus Rhythm Rate: 80 Ectopy: None Radiology Impression Chest X-Ray 02/27/21 05:53 IMPRESSION: Suspect volume overload. Electronically Signed: Kraig Barros MD at 7:12 EDT Tel , Service support , Assessment & Plan Assessment/Plan (1) Shortness of breath: (2) CHF exacerbation: PLAN: Patient is a 65-year-old gentleman presented with progressive shortness of breath 1. Acute on chronic congestive heart failure with preserved ejection fraction ?Echo obtained on 11/20/2020 demonstrated EF of 55 to 60% patient has been admitted to a monitored bed managed with strict input and output, daily weight, fluid restriction as well as IV Lasix 2. Chronic kidney disease stage IV - with GFR of 18. Patient underwent fistula creation a month ago by Dr. Valencia on the upper arm. Palpable thrill felt 3. Diabetes mellitus type 2 ?With complications including diabetic nephropathy. Did continue patient home insulin regimen was also placed on Accu-Cheks before meals and at bedtime with sliding scale coverage 4. Coronary artery disease with previous CA ?Status post PCI with JEAN CARLOS to circumflex lesion on 06/17/2015 5. Anemia - Secondary to chronic disorder as well as chronic kidney disease monitoring H&H and transfuse if patient becomes symptomatic or hemoglobin falls below 7 6. Hypertension - Blood pressure controlled, home medications continued with dose adjustment as needed 7. Obesity with BMI of 37.5 ?Weight loss advised 8. History of DVT ?Treated appropriately 9. DVT prophylaxis ?SC Lovenox Advance planning; did discuss with the patient regarding advanced directives as well as CODE STATUS. Did explain the various scenarios involved ( FULL CODE, DNR CCA, DNR CCA with no intubation, and DNR CC and what each meant) patient elected to be full code with CPR and intubation if needed. Order was placed. Time spent on discussion 18 minutes. Charges/Coding Visit Charges Inpatient E&M: 23682 Init Hosp L3 Procedures Hospitalists Procedures: 47439 Advncd Care Plan 30 Min
--- NOTE | 2021-02-27 07:24 | NURSING ---
PCU KITTOE CP, FLUID OVERLOAD
[2021-02-27] MEDS: Furosemide 40 MG/4 ML Vial IV ×2 (07:29→09:47)
[2021-02-27] MEDS: Aspirin 325 MG Tablet 162 MG PO (07:29)
[2021-02-27 07:46] LABS: Platelet Estimate ADEQUATE (ADEQ); Platelet Morphology CLUMPED
[2021-02-27 09:06] LABS: Troponin-I HS 17 pg/mL (3.0-78.0)
[2021-02-27] MEDS: Heparin Injection (Vial) 5,000 UNIT/ML VIAL 5000 UNIT SC ×2 (09:31→20:48)
[2021-02-27] MEDS: amLODIPine 10 MG Tablet PO (11:55)
[2021-02-27] MEDS: Ferrous Sulfate 325 MG Tablet PO (11:55)
[2021-02-27] MEDS: Carvedilol 12.5 MG Tablet PO ×2 (11:55→20:48)
[2021-02-27 12:10] LABS: Bedside Glucose 128 mg/dL (70-110)
--- NOTE | 2021-02-27 12:12 | PCM.CONS.R ---
Assessment & Plan Assessment/Plan (1) CKD stage 4 due to type 2 diabetes mellitus: PLAN: Renal function at baseline with creatinine at 4.36 on admission eGFR 15 cc/min. Last 24-hour urine creatinine clearance 25 cc/min on November 21, 2020. He has an AV fistula with good thrill and bruit not ready to be used yet. No urgency to initiate dialysis (2) Hypertension: PLAN: Stable BP (3) Type 2 diabetes mellitus: PLAN: Stable (4) Shortness of breath: PLAN: Monitor creatinine while on IV Lasix 3 times a day. (5) Atherosclerotic heart disease of [place] coronary artery without angina pectoris: QUALIFIERS: [place] vs. transplanted heart: [place] heart Qualified Code(s): I25.10 - Atherosclerotic heart disease of [place] coronary artery without angina pectoris HPI Consult Data Date of Consult: 02/27/21 HPI Narrative HPI Narrative: BRI HERNANDEZ, is a 65 M well-known to me with CKD stage IV due to diabetes present to emergency room with worsening shortness of breath and right arm pain past week. Patient states has been short of breath since he had Covid in April 2020. He has chronic leg edema that is improved from baseline. He is on Lasix 40 mg once a day at home. He has chronic nausea without vomiting. He had an AV fistula placed on 01/21/[address] Valencia that has a good thrill and bruit and maturing very well. He complains of cough without fever or chills. Last 24-hour urine creatinine clearance was 25 cc/min on 11/21/20. [facility] Medical History Ambulates with cane Atherosclerotic heart disease of [place] coronary artery without angina pectoris Cardiology follow-up encounter Chronic cough Chronic kidney disease (CKD) Depression Diabetes DVT (deep venous thrombosis) DVT of lower extremity (deep venous thrombosis) (09/2018) Essential (primary) hypertension Former smoker Gastric reflux Hemodialysis access site with arteriovenous graft High cholesterol History of echocardiogram History of edema History of meniscal tear History of renal disease History of stress test Hyperlipidemia Insulin dependent diabetes mellitus Obesity (BMI 30.0-34.9) Old inferior wall myocardial infarction Problem with dialysis access Sleep apnea Tear of lateral meniscus of left knee Tear of medial meniscus of left knee TIA (transient ischemic attack) (05/02/19) Type 2 diabetes mellitus Vitreous hemorrhage, bilateral Home Medications nitroglycerin 0.4 mg SUBLINGUAL Q5M PRN 06/30/15 [History Last Taken 09/30/17 0.4 MG] insulin degludec 15 unit SQ DAILY 02/20/17 [History Last Taken 10/15/18 07:15] aspirin 81 mg PO DAILY #0 07/09/18 [Rx Last Taken 10/15/18 07:00] amlodipine 10 mg tablet 10 mg PO DAILY 02/10/20 [History Last Taken 01/21/21 07:45] cholecalciferol (vitamin D3) 1,250 mcg (50,000 unit) capsule 1,250 mcg PO QWEEK 02/10/20 [History Last Taken 11/15/20] cyanocobalamin (vitamin B-12) 1,000 mcg capsule 1,000 mcg PO DAILY 02/10/20 [History Last Taken Unknown] guanfacine 1 mg tablet 1 mg PO DAILY 02/10/20 [History Last Taken Unknown] carvedilol [Coreg] 12.5 mg PO BID 11/20/20 [History Last Taken 01/21/21 07:45] ferrous sulfate 325 mg PO QODAY #0 tab 11/23/20 [Rx Last Taken Unknown] furosemide [Lasix] 40 mg PO BID 02/27/21 [History Last Taken Unknown] hydralazine 100 mg PO TID 02/27/21 [History Last Taken Unknown] sodium bicarbonate 650 mg PO BID 02/27/21 [History Last Taken Unknown] Allergy/AdvReac Type Severity Reaction Status Date / Time escitalopram [From Lexapro] Allergy Unknown Verified 02/27/21 05:49 sertraline [From Zoloft] Allergy Unknown Verified 02/27/21 05:49 lisinopril AdvReac Severe Cough Verified 02/27/21 05:49 Family History Father blood clot Sister CVA (cerebral vascular accident) Mother Diabetes Surgical History H/O abdominal surgery History of cardiac catheterization History of coronary artery stent placement (06/17/15) Hx of hernia repair Social History Smoking Status: Former smoker alcohol intake: current alcohol intake frequency: a few times a week Alcohol type: beer substance use type: does not use caffeine: Yes Type: coffee Number of servings: 3 what type of physical activity do you participate in: none seatbelt use: always do you feel safe at home: Yes ROS Constitutional Constitutional: Reports weakness; Denies chills or fever(s) Eyes Eyes: Denies loss of vision ENT HEENT: Denies epistaxis Cardiovascular Cardiovascular: Reports edema; Denies chest pain Respiratory/Chest Respiratory/Chest: Reports dry cough, dyspnea on exertion and shortness of breath with exertion; Denies hemoptysis Gastrointestinal Gastrointestinal: Reports diarrhea and nausea; Denies vomiting Genitourinary Genitourinary: Denies difficulty urinating Musculoskeletal Musculoskeletal: Reports other Details: Leg edema chronic Integumentary Integumentary: Reports pruritus Neurologic Neurologic: Reports numbness; Denies focal weakness Psychiatric Psychiatric: Reports anxiety and depression Hematologic/Lymphatic Hematologic/Lymphatic: Reports anemia and easy bruising Physical Exam Const alert, oriented x3 and no apparent distress HEENT normocephalic Eyes PERRL Resp clear to auscultation bilaterally Cardio regular rate and no rub GI non-tender and non-distended GI Narrative: Obese Auscultation: normoactive bowel sounds Palpation: soft Extremity General Extremity: AV fistula and edema bilateral Skin no wounds Neuro Sensorium / Orientation: awake and alert Motor Exam: no tremor Psych cooperative Lab / Micro Data Result Diagrams: 02/27/21 06:15 02/27/21 06:15 Labs: Laboratory Results - last 24 hr 02/27/21 06:15: WBC 7.2, RBC 2.99 L, Hgb 8.5 L, Hct 27.1 L, MCV 90.6, MCH 28.4, MCHC 31.4 L, RDW Std Deviation 48.9 H, RDW Coeff of Lina 14.8 H, Plt Count 157, MPV 11.3, Immature Gran % (Auto) 0.300, Neut % (Auto) 68.1, Lymph % (Auto) 11.5 L, [place] % (Auto) 12.8 H, Eos % (Auto) 6.5 H, Baso % (Auto) 0.8, Absolute Neuts (auto) 4.9, Absolute Lymphs (auto) 0.83, Nucleated RBC % 0, Platelet Estimate ADEQUATE, Plt Morphology Comment CLUMPED 02/27/21 06:15: Sodium 141, Potassium 4.4, Chloride 111 H, Carbon Dioxide 21.0, Anion Gap 9, BUN 49 H, Creatinine 4.36 H, Estim Creat Clear Calc 16.89, Est GFR (MDRD) Af Amer 18 L, Est GFR (MDRD) Non-Af 15 L, BUN/Creatinine Ratio 11.2, Glucose 120 H, Calcium 8.1 L, Magnesium 2.5, Troponin I High Sens 17 02/27/21 06:15: B-Natriuretic Peptide 393.0 H 02/27/21 08:15: Troponin I High Sens 17 02/27/21 11:54: POC Glucose 128 H Micro: Microbiology 02/27/21 07:35 Nasal Secretion SARS-CoV-2 Antigen (Rapid) - Final 02/27/21 06:40 Stool Stool Occult Blood ([place]) - Final Rhythm Strip Rhythm Strip: Sinus Rhythm Rate: 80 Ectopy: None Radiology Impression Chest X-Ray 02/27/21 05:53 IMPRESSION: Suspect volume overload. Electronically Signed: Kraig Barros MD at 7:12 EDT Tel , Service support ,
[2021-02-27 12:37] LABS: Troponin-I HS 16 pg/mL (3.0-78.0)
[2021-02-27] MEDS: Sodium Bicarbonate 650 MG Tablet PO ×2 (13:14→20:51)
[2021-02-27] MEDS: hydrALAZINE 50 MG Tablet 100 MG PO ×2 (14:22→20:49)
[2021-02-27] MEDS: Furosemide 100 MG/10 ML Vial 60 MG IV ×2 (14:22→20:50)
[2021-02-27 16:50] LABS: Bedside Glucose 89 mg/dL (70-110)
[2021-02-27] MEDS: Acetaminophen 325 MG Tablet 650 MG PO (21:03)
[2021-02-27 21:31] LABS: Bedside Glucose 146 mg/dL (70-110)
[2021-02-28] VITALS (17 sets, daily range): BP systolic 140–161; BP diastolic 61–77; PULSE 74–91; RESP 16–20; TEMP 36.6–37.3; O2SAT 93–95
--- NOTE | 2021-02-28 03:03 | PCS.PANDOC ---
PANDEMIC DOCUMENTATION INITIATED: Date: 01/03/2021 Time: 190
[2021-02-28] MEDS: hydrALAZINE 50 MG Tablet 100 MG PO ×3 (05:52→22:15)
[2021-02-28] MEDS: Furosemide 100 MG/10 ML Vial 60 MG IV ×3 (05:53→22:14)
[2021-02-28 07:01] LABS: Bedside Glucose 96 mg/dL (70-110)
[2021-02-28 07:31] LABS: Absolute Lymphocyte Count 0.71 X10^3/uL (0.83-4.51); Absolute Neutrophil Count 3.9 X10^3/uL (2.0-7.7); Basophil# 0.03 X10^3/uL; Basophil% 0.5 % (0-1); Eosinophil# 0.43 X10^3/uL; Eosinophils% 7.2 % (0-5); Hematocrit 25.2 % (40-54); Hemoglobin 7.9 g/dL (13.0-16.5); Lymphocyte # 0.71 X10^3/ul (0.83-4.51); Lymphocyte % 11.9 % (19-41); Mean Corp Hgb Conc 31.3 g/dL (32-36); Mean Corpuscular Volume 89.4 fL (80-94); Monocyte# 0.88 X10^3/uL; Monocyte% 14.7 % (0-10); NRBC Flagged by Analyzer 0 % (0-5); Neutrophil # 3.92 X10^3/uL (2.7-7.7); Neutrophil % 65.4 % (47-70); Platelet Count 209 K/mm3 (150-450); RBC Distribution Width CV 14.6 % (11.6-14.6); Red Blood Count 2.82 M/mm3 (4.6-6.2)
[2021-02-28 07:57] LABS: Anion Gap 7 (5-15); BUN 48 mg/dL (7-18); BUN/Creat Ratio 10.7 RATIO (10-20); Calcium,Total 8.3 mg/dL (8.5-10.1); Chloride 113 mmol/L (98-107); Creatinine, Serum 4.47 mg/dL (0.70-1.30); EST Glomerular Filtration Rate 14 mL/min (>60); Est Glom Filt Rate - Afr Amer 17 mL/min (>60); Estimated Creatinine Clearance 16.48 ml/min; Glucose 107 mg/dL (74-106); Magnesium 2.3 mg/dL (1.6-2.6); Potassium 3.9 mmol/L (3.5-5.1); Sodium Level 144 mmol/L (136-145)
--- NOTE | 2021-02-28 09:30 | PCM.PN.REN ---
Subjective Subjective still SOB, orthopnea, fatigue, nausea with chronic edema. Hgb 7.9g. Objective Data Objective Data Vital Signs: Vital Signs Temp Pulse Resp BP Pulse Ox 99.1 F 74 18 156/67 H 93 02/28/21 02:41 02/28/21 06:52 02/28/21 02:41 02/28/21 05:52 02/28/21 02:41 Oxygen Flow Rate (L/min) 2 Oxygen Delivery Method Room Air Weight: 114 kg Body Mass Index (BMI) 37.5 Intake & Output: Intake and Output for Last 24 Hours 02/26/21 02/27/21 02/28/21 23:59 23:59 23:59 Intake Total 720 / 720 200 / 200 Output Total 2175 / 2175 600 / 600 Balance -1455 / -1455 -400 / -400 Lab / Micro Data Result Diagrams: 02/28/21 06:25 02/28/21 06:25 Labs: Laboratory Results - last 24 hr 02/27/21 11:54: POC Glucose 128 H 02/27/21 12:07: Troponin I High Sens 16 02/27/21 16:31: POC Glucose 89 02/27/21 20:47: POC Glucose 146 H 02/28/21 06:21: POC Glucose 96 02/28/21 06:25: WBC 6.0, RBC 2.82 L, Hgb 7.9 L, Hct 25.2 L, MCV 89.4, MCH 28.0, MCHC 31.3 L, RDW Std Deviation 48.0 H, RDW Coeff of Lina 14.6, Plt Count 209, MPV 11.0, Immature Gran % (Auto) 0.300, Neut % (Auto) 65.4, Lymph % (Auto) 11.9 L, [place] % (Auto) 14.7 H, Eos % (Auto) 7.2 H, Baso % (Auto) 0.5, Absolute Neuts (auto) 3.9, Absolute Lymphs (auto) 0.71 L, Nucleated RBC % 0 02/28/21 06:25: Sodium 144, Potassium 3.9, Chloride 113 H, Carbon Dioxide 24.0, Anion Gap 7, BUN 48 H, Creatinine 4.47 H, Estim Creat Clear Calc 16.48, Est GFR (MDRD) Af Amer 17 L, Est GFR (MDRD) Non-Af 14 L, BUN/Creatinine Ratio 10.7, Glucose 107 H, Calcium 8.3 L, Magnesium 2.3 Micro: Microbiology 02/27/21 07:35 Nasal Secretion SARS-CoV-2 Antigen (Rapid) - Final 02/27/21 06:40 Stool Stool Occult Blood (WARREN) - Final Rhythm Strip Rhythm Strip: Sinus Rhythm Rate: 80 Ectopy: None Physical Exam Const alert, oriented x3 and no apparent distress Resp clear to auscultation bilaterally Cardio regular rate GI non-tender and non-distended GI Narrative: obese Palpation: soft Extremity General Extremity: edema bilateral (AVF left upper arm with good thrill and bruit) Psych cooperative Assessment & Plan Assessment/Plan (1) CKD stage 4 due to type 2 diabetes mellitus: PLAN: no urgency to start dialysis (2) Shortness of breath: PLAN: change lasix to 40mg bid on discharge to home (3) Type 2 diabetes mellitus: PLAN: stable (4) Hypertension: (5) Iron deficiency anemia: PLAN: hgb 7.9g consider blood transfusion
[2021-02-28] MEDS: Heparin Injection (Vial) 5,000 UNIT/ML VIAL 5000 UNIT SC ×2 (09:51→22:14)
[2021-02-28] MEDS: Acetaminophen 325 MG Tablet 650 MG PO (09:52)
[2021-02-28] MEDS: Aspirin E.C. 81 MG Tablet PO (09:53)
[2021-02-28] MEDS: Carvedilol 12.5 MG Tablet PO ×2 (09:53→22:15)
[2021-02-28] MEDS: Cyanocobalamin 500 MCG Tablet 1000 MCG PO (09:54)
[2021-02-28] MEDS: amLODIPine 10 MG Tablet PO (09:54)
[2021-02-28] MEDS: Sodium Bicarbonate 650 MG Tablet PO ×2 (09:54→22:26)
[2021-02-28] MEDS: Ergocalciferol 1.25 MG (50, 000 UNIT) Capsule PO (09:54)
--- NOTE | 2021-02-28 11:30 | CASEMGMT ---
ALIREZA MAYER Face to Face with patient for initial transition planning/care coordination assessment. RN CM introduced self and role at [facility]. Patient lying in bed, alert and oriented. Patient willing to participate in assessment and is able to answer all questions appropriately. Care providers, pharmacy, and demographics verified. Patient wishes to discharge home and is interested in possible HHC, CM to provide list to patient. Patient states he has no further needs or concerns at this time. CM to follow for discharge planning needs that may arise. PCP: Paul Specialists: Juvenal piping drafter; Pradeep, push bench operator helper Preferred Pharmacy: [facility] Insurance: [employer] Prescription Benefit: yes Living Will/HPOA: yes, son Eber GAMEZOK: son Living Arrangements: Patient lives with friend Edel in a one story home with 4 steps and railing to enter the home, also has stair lift. Patient states he is independent at home. Transportation: Friend, [employer] DME/HHC: patient states he has shower chair, raised toilet, cane, and grab bars at home. Patient has previously been to [facility]. Patient states he is interested in HHC for , CM to follow for HHC. Disposition Plan: Patient to discharge home with HHC, family support, and follow-up plans in place. Molly MEDINA, RN, CM
[2021-02-28 11:45] LABS: Bedside Glucose 136 mg/dL (70-110)
[2021-02-28] MEDS: 0.9% Saline Lock 10 ML Syringe IV (13:48)
--- NOTE | 2021-02-28 15:19 | PCM.PN.HOSP ---
Subjective Subjective Still feels unwell, states that he feels he has a head cold. Also unable to lay flat could get short of breath. Objective Data Objective Data Vital Signs: Vital Signs Temp Pulse Resp BP Pulse Ox 98.1 F 77 20 H 159/72 H 94 02/28/21 09:48 02/28/21 15:09 02/28/21 09:48 02/28/21 09:48 02/28/21 09:48 Oxygen Flow Rate (L/min) 2 Oxygen Delivery Method Room Air Weight: 251 lb 5.231 oz Body Mass Index (BMI) 37.5 Intake & Output: Intake and Output for Last 24 Hours 02/27/21 02/28/21 03/01/21 03:59 03:59 03:59 Intake Total 720 / 720 420 / 420 Output Total 2175 / 2175 1200 / 1200 Balance -1455 / -1455 -780 / -780 Lab / Micro Data Result Diagrams: 02/28/21 06:25 02/28/21 06:25 Labs: Laboratory Results - last 24 hr 02/27/21 16:31: POC Glucose 89 02/27/21 20:47: POC Glucose 146 H 02/28/21 06:21: POC Glucose 96 02/28/21 06:25: WBC 6.0, RBC 2.82 L, Hgb 7.9 L, Hct 25.2 L, MCV 89.4, MCH 28.0, MCHC 31.3 L, RDW Std Deviation 48.0 H, RDW Coeff of Lina 14.6, Plt Count 209, MPV 11.0, Immature Gran % (Auto) 0.300, Neut % (Auto) 65.4, Lymph % (Auto) 11.9 L, [place] % (Auto) 14.7 H, Eos % (Auto) 7.2 H, Baso % (Auto) 0.5, Absolute Neuts (auto) 3.9, Absolute Lymphs (auto) 0.71 L, Nucleated RBC % 0 02/28/21 06:25: Sodium 144, Potassium 3.9, Chloride 113 H, Carbon Dioxide 24.0, Anion Gap 7, BUN 48 H, Creatinine 4.47 H, Estim Creat Clear Calc 16.48, Est GFR (MDRD) Af Amer 17 L, Est GFR (MDRD) Non-Af 14 L, BUN/Creatinine Ratio 10.7, Glucose 107 H, Calcium 8.3 L, Magnesium 2.3 02/28/21 10:28: Blood Type O POSITIVE, Antibody Screen NEGATIVE, Crossmatch See Detail 02/28/21 11:40: POC Glucose 136 H Micro: Microbiology 02/27/21 07:35 Nasal Secretion SARS-CoV-2 Antigen (Rapid) - Final 02/27/21 06:40 Stool Stool Occult Blood (WARREN) - Final Rhythm Strip Rhythm Strip: Sinus Rhythm Rate: 80 Ectopy: None Physical Exam Const alert, oriented x3 and no apparent distress General Appearance: cooperative HEENT normocephalic and moist oral mucous membranes Eyes PERRL, EOMs intact bilaterally and conjunctivae normal Neck supple and no JVD Resp normal respiratory effort, no retractions and no use of accessory muscles Auscultation: crackles and diminished lung sounds; Negative for rales, rhonchi or wheezes Cardio regular rate, regular rhythm, S1 normal heart sound, S2 normal heart sound and no murmurs GI soft to palpation, non-tender and non-distended; Negative for hepatosplenomegaly Extremity General Extremity: edema bilateral lower extremity Details: mild; Negative for clubbing or cyanosis Skin no rashes or lesions noted Neuro no focal motor deficits and no sensory deficits noted Psych affect normal Appearance: appropriate Assessment & Plan Assessment/Plan (1) Shortness of breath: (2) CHF exacerbation: PLAN: 1. Acute on chronic diastolic CHF/CAD status post stent/HTN/HLD -Concern for CHF exacerbation, BNP is elevated and he does have orthopnea -He does continue to make urine therefore we will provide him with some Lasix -Appreciate nephrology's assistance -Continue with Norvasc and Coreg -Echo 11/20/2020 demonstrated EF of 55 to 60% 2. CKD 4/DM 2/anemia of chronic disease -Hemoglobin today 7.9, nephrology recommends transfusion -He does have a fistula in his left upper extremity however it has not matured as he was put in a month ago -Continue with Lasix, and will transfuse 1 unit -Continue with home insulin regimen will monitor with Accu-Cheks AC at bedtime -We will make adjustments as necessary DVT: Lovenox Charges/Coding Visit Charges Inpatient E&M: 37110 Subs Hosp L2
--- NOTE | 2021-02-28 15:30 | CHAPLAIN ---
Type of Pastoral Visit _x__ Initial Visit ___ Follow-up Visit ___ On-call Visit ___ General Patient Visit ___ Spiritual Assessment ___ Family Conference ___ Bereavement ___ Rapid Response ___ Code Blue ___ Other (describe below) Pastoral Care Referral From _x__ Patient ___ Family ___ Nurse ___ Physician ___ Prop Cutter ___ Ore Miner Blasting ___ Other (describe below) Sacrament/Intervention _x__ Active listening ___ Anointing ___ Yarsanism ___ Bereavement ___ Communion _x_ Loreto exploration ___ _x__ Life review _x__ Prayer ___ Reconciliation ___ Sacrament of Sick _x__ Supportive presence ___ Wedding ___ Other (describe below) Pastoral Comments patient is very welcoming of spiritual care; pt asks big questions about spirituality and loreto; pt says he has kept himself alone in a dark house; pt seeks spiritual care and support; pt welcomes prayer and presence; pt would like to have a follow up visit to talk more about his questions
[2021-02-28 16:55] LABS: Bedside Glucose 129 mg/dL (70-110)
[2021-02-28 22:26] LABS: Bedside Glucose 135 mg/dL (70-110)
[2021-03-01] VITALS (9 sets, daily range): BP systolic 130–155; BP diastolic 61–72; PULSE 73–76; RESP 18; TEMP 36.7–37.3; O2SAT 92–96
[2021-03-01] MEDS: hydrALAZINE 50 MG Tablet 100 MG PO ×2 (05:26→15:43)
[2021-03-01] MEDS: Furosemide 100 MG/10 ML Vial 60 MG IV (05:26)
[2021-03-01 06:51] LABS: Bedside Glucose 115 mg/dL (70-110)
[2021-03-01 07:08] LABS: Absolute Neutrophil Count 4.3 X10^3/uL (2.0-7.7); Basophil# 0.04 X10^3/uL; Basophil% 0.6 % (0-1); Eosinophil# 0.47 X10^3/uL; Eosinophils% 7.3 % (0-5); Hematocrit 29.1 % (40-54); Lymphocyte % 12.4 % (19-41); Mean Corp Hgb Conc 30.9 g/dL (32-36); Mean Corpuscular Volume 90.7 fL (80-94); Mean Platelet Vol. 10.7 fl (6.2-12.0); Monocyte# 0.86 X10^3/uL; Monocyte% 13.3 % (0-10); NRBC Flagged by Analyzer 0 % (0-5); Neutrophil # 4.26 X10^3/uL (2.7-7.7); Neutrophil % 66.1 % (47-70); Platelet Count 201 K/mm3 (150-450); RBC Distribution Width CV 14.8 % (11.6-14.6); RBC Distribution Width SD 49.4 fl (35.1-43.9); Red Blood Count 3.21 M/mm3 (4.6-6.2); White Blood Count 6.5 K/mm3 (4.4-11.0)
[2021-03-01 07:46] LABS: Anion Gap 11 (5-15); BUN 51 mg/dL (7-18); BUN/Creat Ratio 10.9 RATIO (10-20); Calcium,Total 8.3 mg/dL (8.5-10.1); Chloride 107 mmol/L (98-107); Creatinine, Serum 4.68 mg/dL (0.70-1.30); EST Glomerular Filtration Rate 13 mL/min (>60); Est Glom Filt Rate - Afr Amer 16 mL/min (>60); Estimated Creatinine Clearance 15.74 ml/min; Glucose 115 mg/dL (74-106); Sodium Level 140 mmol/L (136-145)
[2021-03-01] MEDS: amLODIPine 10 MG Tablet PO (08:02)
[2021-03-01] MEDS: Carvedilol 12.5 MG Tablet PO (08:02)
[2021-03-01] MEDS: Heparin Injection (Vial) 5,000 UNIT/ML VIAL 5000 UNIT SC (08:02)
[2021-03-01] MEDS: Aspirin E.C. 81 MG Tablet PO (08:02)
[2021-03-01] MEDS: Sodium Bicarbonate 650 MG Tablet PO (08:02)
[2021-03-01] MEDS: Cyanocobalamin 500 MCG Tablet 1000 MCG PO (08:03)
[2021-03-01] MEDS: Ferrous Sulfate 325 MG Tablet PO (11:28)
[2021-03-01 12:00] LABS: Bedside Glucose 157 mg/dL (70-110)
--- NOTE | 2021-03-01 12:05 | PCM.DC ---
Discharge Instructions Diet Discharge Diet: 8 Cup Fluid Restriction, 2000 mg Sodium Diet and Renal Diet Activity Discharge Activity: Return to Normal Activity Dressing / Incision Call your doctor if you observe: Fever of 101 or Higher, Shortness of breath, Dizziness, Fainting spells, Swelling in the ankles, Chest pain and Increased palpitations (irregular heartbeat) Follow Up Care Test Results: Test results from this visit will be discussed in further detail at your follow-up appointment, if applicable. Discharge Plan Admission Admit Date/Time: 02/27/21 09:41 Attending Provider: Wai Medina Primary Care Provider: Gene Miller Consulting Providers: Kandis Sanford Instructions Additional Instructions / Restrictions: Follow-up with your PCP in 3 to 5 days and obtain outpatient referral for cardiac stress test for further evaluation. Echo in November was fairly unremarkable and consistent with previous echo from 2019 Discharge Orders/Prescriptions Prescriptions: Continued nitroglycerin 0.4 MG tablet 0.4 mg SUBLINGUAL Q5M PRN (Reason: Chest Pain) RF: 0 insulin degludec 200 UNIT/ML insulin pen 15 unit SQ DAILY RF: 0 aspirin 81 MG tablet 81 mg PO DAILY Qty: 0 RF: 0 carvedilol [Coreg] 25 mg tablet 12.5 mg PO BID RF: 0 ferrous sulfate 325 MG tablet 325 mg PO QODAY Qty: 0 RF: 0 furosemide [Lasix] 40 mg Tablet 40 mg PO BID RF: 0 hydralazine 100 mg Tablet 100 mg PO TID RF: 0 sodium bicarbonate 650 mg tablet 650 mg PO BID RF: 0 amlodipine [Norvasc] 10 mg tablet 10 mg PO DAILY RF: 0 guanfacine 1 mg tablet 1 mg PO DAILY RF: 0 cholecalciferol (vitamin D3) 1,250 mcg (50,000 unit) capsule 1,250 mcg PO QWEEK RF: 0 cyanocobalamin (vitamin B-12) 1,000 mcg capsule 1,000 mcg PO DAILY RF: 0 Referrals / Follow Up: Kandis Sanford DO [STAFF PHYSICIAN] - Within 3 Months Gene Miller MD [Primary Care Provider] - Within 1 Week Disposition Disposition (needs filled in before D/C Order can be placed): Home, Self Care
--- NOTE | 2021-03-01 13:00 | CASEMGMT ---
Addendum entered by Molly Sandy 03/01/21 14:45: Call back from Ortega at [facility] and she states they may not be able to do start of care until Sunday, but most likely would be sooner, and asks about adding therapy. Pt had insisted on only nursing at this time and Ortega updated. This RN LEYLA advised her that the soonest start of care would be fine, voices understanding. Scott LAY CM Addendum entered by Molly Sandy 03/01/21 14:42: Call from Ortega at [facility] and she states they can accept pt. D/C summ/instructions faxed to [facility]. Scott LAY CM Original Note: Pt provided a list of [facility] providers including quality and resource use data and consistent with the patient?s preferred geographic region, medical needs, and insurance network. Pt states would like [facility] for nursing only. Referral faxed to [facility]. CM to follow. Scott LAY CM
--- NOTE | 2021-03-01 14:21 | PCM.DC.SUM ---
Providers Date of Admission: 02/27/21 Primary Care Physician: Dr. Gene Miller MD Consultations 02/27/21 07:29 Consult: Nephrology Routine Consulting Provider: Kandis Sanford Reason for Consult: ckd EMERGENT Consult: No MD Notified: Yes Date Notified: 02/27/21 Time Notified: 07:49 Method of Notification: Text Reason For Visit: CHF Diagnosis Discharge Diagnosis (1) Shortness of breath: Status: Chronic Code(s): R06.02 - Shortness of breath (2) CHF exacerbation: Status: Chronic Code(s): I50.9 - Heart failure, unspecified Medications at Discharge Home Medications nitroglycerin 0.4 mg SUBLINGUAL Q5M PRN 06/30/15 insulin degludec 15 unit SQ DAILY 02/20/17 aspirin 81 mg PO DAILY #0 07/09/18 amlodipine 10 mg tablet 10 mg PO DAILY 02/10/20 cholecalciferol (vitamin D3) 1,250 mcg (50,000 unit) capsule 1,250 mcg PO QWEEK 02/10/20 cyanocobalamin (vitamin B-12) 1,000 mcg capsule 1,000 mcg PO DAILY 02/10/20 guanfacine 1 mg tablet 1 mg PO DAILY 02/10/20 carvedilol [Coreg] 12.5 mg PO BID 11/20/20 ferrous sulfate 325 mg PO QODAY #0 tab 11/23/20 furosemide [Lasix] 40 mg PO BID 02/27/21 hydralazine 100 mg PO TID 02/27/21 sodium bicarbonate 650 mg PO BID 02/27/21 Hospital Course Operations None Procedures None Summary of Care Provided Minutes Spent on Discharge: 45 Hospital Course: Per HPI: BRI HERNANDEZ, is a 65 M with past medical history signal for diabetes mellitus type 2, chronic kidney disease stage V, congestive heart failure with preserved ejection fraction who presents with shortness of breath. Patient reports having developed shortness of breath following his diagnosis of Covid in April 2020. He did notice increasing swelling involving both lower extremities as well as his abdomen. He subsequently presented to the emergency department. An assessment of acute congestive heart failure made admitted to a monitored bed for further management. Hospital Course: 1. Acute on chronic diastolic CHF/CAD status post stent/HTN/[id number]-old male with CKD 4 due to complications from diabetes presented to the hospital with apnea. At the time his BNP was lower than it had been since March 2020, and he has remained off of oxygen. He still endorses shortness of breath but does not require oxygen either at rest, or with sleep or with ambulation. He does have significant lower extremity edema likely secondary to CKD 4. He is on Lasix without any significant improvement in discussion with his medical laboratory technician, she states that he is always complaining of shortness of breath without any significant improvement. He did have a fistula placed yesterday and he may become a candidate for dialysis in the future patient continues with shortness of breath and volume overload. He was started on IV Lasix 60 mg 3 times daily however his creatinine has worsened therefore this was checked down to twice daily dosing of 40 mg. Also he had a hemoglobin of 7.9 there are some consideration that this could be the cause of his shortness of breath so he was transfused 1unit and corrected to a hemoglobin of 9 however this did not help her shortness of breath. He did have an echo in November 2020 that showed an EF of 55 to 60% that remains fairly unchanged since 2019. After discussions with him as well as nephrology, I discussed with him the plan for discharge today and he expressed understanding and was amenable to going home and is okay with going home. We will plan for resuming his home Lasix and he will need to follow-up with nephrology in March and at that time he may benefit from a trial of dialysis to see if this helps with his shortness of breath, though he states that he had dialysis before which did not help all that much with his shortness of breath. I do also recommend that he follow-up with his PCP in 3 to 5days and obtain a possible outpatient stress test despite a normal recent echo and no attacks of chest pain. 2. Chronic kidney disease stage IV, type 2 diabetes, anemia of chronic disease are all chronic medical conditions which complicates care. Home medications were continued where appropriate Physical Exam Const alert, oriented x3 and no apparent distress General Appearance: cooperative HEENT normocephalic and moist oral mucous membranes Eyes PERRL, EOMs intact bilaterally and conjunctivae normal Neck supple and no JVD Resp normal respiratory effort, no retractions and no use of accessory muscles Auscultation: diminished lung sounds; Negative for crackles, rales, rhonchi or wheezes Cardio regular rate, regular rhythm, S1 normal heart sound, S2 normal heart sound and no murmurs GI soft to palpation, non-tender and non-distended; Negative for hepatosplenomegaly Extremity General Extremity: edema bilateral lower extremity Details: mild; Negative for clubbing or cyanosis Skin no rashes or lesions noted Neuro no focal motor deficits and no sensory deficits noted Psych affect normal Appearance: appropriate Weight / BMI Weight Weight: 252 lb 3.341 oz Body Mass Index (BMI) 37.5 ABG / Lab / Microbiology Data Result Diagrams: 03/01/21 06:55 03/01/21 06:55 Laboratory: Laboratory Results - last 24 hr 02/28/21 10:28: Blood Type O POSITIVE, Antibody Screen NEGATIVE, Crossmatch See Detail 02/28/21 16:39: POC Glucose 129 H 02/28/21 22:08: POC Glucose 135 H 03/01/21 06:39: POC Glucose 115 H 03/01/21 06:55: WBC 6.5, RBC 3.21 L, Hgb 9.0 L, Hct 29.1 L, MCV 90.7, MCH 28.0, MCHC 30.9 L, RDW Std Deviation 49.4 H, RDW Coeff of Lina 14.8 H, Plt Count 201, MPV 10.7, Immature Gran % (Auto) 0.300, Neut % (Auto) 66.1, Lymph % (Auto) 12.4 L, [place] % (Auto) 13.3 H, Eos % (Auto) 7.3 H, Baso % (Auto) 0.6, Absolute Neuts (auto) 4.3, Absolute Lymphs (auto) 0.80 L, Nucleated RBC % 0 03/01/21 06:55: Sodium 140, Potassium 4.0, Chloride 107, Carbon Dioxide 22.0, Anion Gap 11, BUN 51 H, Creatinine 4.68 H, Estim Creat Clear Calc 15.74, Est GFR (MDRD) Af Amer 16 L, Est GFR (MDRD) Non-Af 13 L, BUN/Creatinine Ratio 10.9, Glucose 115 H, Calcium 8.3 L 03/01/21 11:27: POC Glucose 157 H Microbiology: Microbiology 02/28/21 15:12 Mucosa - Nose Respiratory Panel (PCR) - Final 02/27/21 07:35 Nasal Secretion SARS-CoV-2 Antigen (Rapid) - Final 02/27/21 06:40 Stool Stool Occult Blood (WARREN) - Final D/C Instructions Discharge Diet: 8 Cup Fluid Restriction, 2000 mg Sodium Diet and Renal Diet Call your doctor if you observe: Fever of 101 or Higher, Shortness of breath, Dizziness, Fainting spells, Swelling in the ankles, Chest pain and Increased palpitations (irregular heartbeat) Meaningful Use Info Meaningful Use Diagnoses (Choose all that apply): None applicable Discharge Plan Admission Admit Date/Time: 02/27/21 09:41 Attending Provider: Wai Medina Primary Care Provider: Gene Miller Consulting Providers: Kandis Sanford Instructions Additional Instructions / Restrictions: Follow-up with your PCP in 3 to 5 days and obtain outpatient referral for cardiac stress test for further evaluation. Echo in November was fairly unremarkable and consistent with previous echo from 2019 Discharge Orders/Prescriptions Prescriptions: Continued nitroglycerin 0.4 MG tablet 0.4 mg SUBLINGUAL Q5M PRN (Reason: Chest Pain) RF: 0 insulin degludec 200 UNIT/ML insulin pen 15 unit SQ DAILY RF: 0 aspirin 81 MG tablet 81 mg PO DAILY Qty: 0 RF: 0 carvedilol [Coreg] 25 mg tablet 12.5 mg PO BID RF: 0 ferrous sulfate 325 MG tablet 325 mg PO QODAY Qty: 0 RF: 0 furosemide [Lasix] 40 mg Tablet 40 mg PO BID RF: 0 hydralazine 100 mg Tablet 100 mg PO TID RF: 0 sodium bicarbonate 650 mg tablet 650 mg PO BID RF: 0 amlodipine [Norvasc] 10 mg tablet 10 mg PO DAILY RF: 0 guanfacine 1 mg tablet 1 mg PO DAILY RF: 0 cholecalciferol (vitamin D3) 1,250 mcg (50,000 unit) capsule 1,250 mcg PO QWEEK RF: 0 cyanocobalamin (vitamin B-12) 1,000 mcg capsule 1,000 mcg PO DAILY RF: 0 Referrals / Follow Up: Kandis Sanford DO [STAFF PHYSICIAN] - Within 3 Months (Please call to setup an appointment. ) Gene Miller MD [Primary Care Provider] - Within 1 Week (Please call to setup an appointment. ) Disposition Disposition (needs filled in before D/C Order can be placed): Home, Self Care Charges/Coding Visit Charges Inpatient E&M: 17625 Disch Hosp
--- NOTE | 2021-03-01 14:46 | PHA.DC.MR ---
Pharmacy Service has performed discharge medication reconciliation for this patient. The patient's discharge medication list was reviewed for discrepancies and discrepancies were resolved. Home Medications nitroglycerin 0.4 mg SUBLINGUAL Q5M PRN 06/30/15 insulin degludec 15 unit SQ DAILY 02/20/17 aspirin 81 mg PO DAILY #0 07/09/18 amlodipine 10 mg tablet 10 mg PO DAILY 02/10/20 cholecalciferol (vitamin D3) 1,250 mcg (50,000 unit) capsule 1,250 mcg PO QWEEK 02/10/20 cyanocobalamin (vitamin B-12) 1,000 mcg capsule 1,000 mcg PO DAILY 02/10/20 guanfacine 1 mg tablet 1 mg PO DAILY 02/10/20 carvedilol [Coreg] 12.5 mg PO BID 11/20/20 ferrous sulfate 325 mg PO QODAY #0 tab 11/23/20 furosemide [Lasix] 40 mg PO BID 02/27/21 hydralazine 100 mg PO TID 02/27/21 sodium bicarbonate 650 mg PO BID 02/27/21
--- NOTE | 2021-03-01 15:45 | CHAPLAIN ---
Type of Pastoral Visit ___ Initial Visit _x__ Follow-up Visit ___ On-call Visit ___ General Patient Visit ___ Spiritual Assessment ___ Family Conference ___ Bereavement ___ Rapid Response ___ Code Blue ___ Other (describe below) Pastoral Care Referral From _x__ Patient ___ Family ___ Nurse ___ Physician ___ Chief Maintenance Supervisor ___ Rubber Press Tender ___ Other (describe below) Sacrament/Intervention _x__ Active listening ___ Anointing ___ Episcopalian ___ Bereavement ___ Communion _x__ Loreto exploration ___ ___ Life review _x__ Prayer ___ Reconciliation ___ Sacrament of Sick _x__ Supportive presence ___ Wedding ___ Other (describe below) Pastoral Comments patient talks more about his life and how he is processing some decisions; pt expresses great appreciation for staff and for this informatics spec that was able to sit and listen to him; prayer also welcomed
--- NOTE | 2021-03-02 15:14 | CASEMGMT ---
ALIREZA MAYER Discharge F/U Phone Call LACE: 11 Strata: 3 Discharge date: 03/01/21 Call date: 03/02/21 Call time: 1515 Admission dx: CHF Pt states no concerns since home and states is 'just trying to get some sleep.' Pt states no questions with d/c instructions/medications. Pt states has not heard from [facility] but aware that they should be calling to set up start of care. Pt states no suggestions for [facility] and voices no further questions/concerns/needs. [place] ALIREZA MAYER
== END 2021-03-01 17:03 | disposition home or self-care (01) | DRG 292 ==
LOC: ED 07:26 → PCU 14:02
PROVIDERS: Admitting Provider Internal Medicine; Emergency Provider Emergency Medicine; PCP Family Medicine; Visit Provider Family Medicine
DX: I13.0 Hypertensive heart and chronic kidney disease with heart failure and stage 1 through stage 4 chronic kidney disease, or unspecified chronic kidney disease (principal); N18.4 Chronic kidney disease, stage 4 (severe); E11.22 Type 2 diabetes mellitus with diabetic chronic kidney disease; E78.5 Hyperlipidemia, unspecified; I25.10 Atherosclerotic heart disease of native coronary artery without angina pectoris; Z95.5 Presence of coronary angioplasty implant and graft; D63.1 Anemia in chronic kidney disease; E66.9 Obesity, unspecified; D50.9 Iron deficiency anemia, unspecified; Z68.37 Body mass index [BMI] 37.0-37.9, adult; Z79.4 Long term (current) use of insulin; Z79.899 Other long term (current) drug therapy; Z87.891 Personal history of nicotine dependence; Z86.718 Personal history of other venous thrombosis and embolism; Z23 Encounter for immunization
CPT/HCPCS: 36415; 71045; 80048; 82274; 82962; 83735; 83880; 84484; 85025; 86850; 86900; 86901; 86920; 86922; 87426; 87633; 93005; 94640; 97802; 99251; 99285; G0008; J7040; P9016; 90686; A4216; G0463; J1940

== ENCOUNTER → 2021-03-25 10:09 | Outpatient (CLI) | payer MEDICARE, MEDICAID, SELFPAY ==
[2021-03-25 10:54] LABS: Hemoglobin 9.1 g/dL (13.0-16.5); Mean Corp Hgb Conc 31.4 g/dL (32-36); Mean Corpuscular Hgb 28.2 pg (27.0-32.0); Mean Corpuscular Volume 89.8 fL (80-94); Mean Platelet Vol. 10.5 fl (6.2-12.0); Platelet Count 204 K/mm3 (150-450); RBC Distribution Width CV 14.5 % (11.6-14.6); RBC Distribution Width SD 47.8 fl (35.1-43.9); Red Blood Count 3.23 M/mm3 (4.6-6.2); White Blood Count 6.9 K/mm3 (4.4-11.0)
[2021-03-25 11:23] LABS: BUN 51 mg/dL (7-18); Calcium,Total 8.4 mg/dL (8.5-10.1); Chloride 113 mmol/L (98-107); Creatinine, Serum 4.65 mg/dL (0.70-1.30); EST Glomerular Filtration Rate 14 mL/min (>60); Est Glom Filt Rate - Afr Amer 16 mL/min (>60); Glucose 125 mg/dL (74-106); Potassium 4.9 mmol/L (3.5-5.1); Sodium Level 142 mmol/L (136-145)
[2021-03-25 11:24] LABS: PTHIN 168.2 pg/mL (18.4-80.1)
== END ==
PROVIDERS: PCP Family Medicine; Referring Provider Internal Medicine Nephrology; Visit Provider Internal Medicine Nephrology
DX: N18.4 Chronic kidney disease, stage 4 (severe) (principal)
CPT/HCPCS: 36415; 80069; 83970; 85027

== ENCOUNTER → 2021-03-25 12:09 | Outpatient (CLI) | payer MEDICARE, MEDICAID, SELFPAY ==
--- NOTE | 2021-03-25 12:12 | US_ITS ---
STUDY: ULTRASOUND - US Unlisted US Procedure 03/25/2021 4:48 PM REASON FOR EXAM: Male, 65 years old. PALPABLE LUMP MIDLINE UPPER ABDOMENPALPABLE LUMP MIDLINE UPPER ABDOMEN TECHNIQUE: A superficial ultrasound was performed with real-time and static lama-scale imaging. COMPARISON: ctap 7.9.[address] chest of 03.03.. FINDINGS: There is no fluid collection. There is no abscess. There is visualized mass. This is at the level of the palpable abnormality. This measures 33 x 28x 18 mm. This at the level inferior to the sternum and is echogenic. There is soft tissue edema. US/Other Unlisted US Procedure IMPRESSION: There are no acute findings. The palpable abnormality is likely a normal variant of an enlarged elongated xyphoid process as noted on the prior studies. Electronically Signed: Jose Miguel Pereira MD at 16:51 EDT , Service support ,
== END ==
PROVIDERS: PCP Family Medicine; Visit Provider Family Medicine
DX: R22.9 Localized swelling, mass and lump, unspecified (principal); N18.4 Chronic kidney disease, stage 4 (severe); D50.9 Iron deficiency anemia, unspecified; D63.1 Anemia in chronic kidney disease
CPT/HCPCS: 36415; 76999; 80069; 83970; 85027

== ENCOUNTER 2021-04-05 22:09 | Emergency (ER) | payer MEDICARE, MEDICAID, SELFPAY ==
[2021-04-05 22:10] VITALS: BP 158/79; PULSE 84; RESP 18; TEMP 36.8; O2SAT 93; BMI 37.8
--- NOTE | 2021-04-05 22:20 | CT_ITS ---
STUDY: CT CERVICAL SPINE WITHOUT CONTRAST REASON FOR EXAM: Male, 65 years old. FALL ON SUNDAY WITH NECK PAIN RADIATION DOSAGE (If Supplied By Facility): CTDIvol = ( 24.80 ) mGy, DLP = ( 534.14 ) mGycm TECHNIQUE: High resolution transaxial imaging was performed without contrast material. Sagittal and coronal images were reconstructed. Individualized dose optimization techniques were used for this CT. COMPARISON: Chest x-ray dated February 27, 2021 FINDINGS: Normal craniovertebral junction. Normal anterior atlantoaxial articulation. Normal odontoid process. Normal cervical lordosis. Mild to moderate multilevel disc space narrowing and posterior element degenerative changes are present. Mild central canal stenosis is also seen at several levels. Bulky anterior osteophytes are present across multiple levels. No visualized acute fracture or compression deformity. Normal visualized soft tissue structures. Mild interstitial thickening and cystic emphysematous changes are seen in the lung apices. CT/Spine Cervical without Contras IMPRESSION: Multilevel degenerative changes, as described above. Electronically Signed: Wolf Fair MD at 23:09 EST , Service support ,
--- NOTE | 2021-04-05 22:20 | CT_ITS ---
EXAMINATION : Head CT w/out contrast HISTORY : head injury COMPARISON : 05/08/2019. TECHNIQUE : Multiple contiguous axial images were obtained from the skull base to the vertex without intravenous contrast. A radiation dose optimization technique was used for this scan. FINDINGS : The ventricles and sulci are normal in size. There is no evidence for acute intracranial hemorrhage, mass effect, or midline shift. There is no extra-axial fluid collection. There is normal scott-white differentiation, without CT evidence of acute ischemia or infarct. The skull base and calvarium are unremarkable. The orbits are unremarkable. The paranasal sinuses are clear. The mastoid air cells are well-aerated. The soft tissues are unremarkable. CT/Brain/Head without Contrast IMPRESSION: No acute intracranial abnormality. Electronically Signed: Ace Paulino MD at 23:12 EST Tel , Service support ,
--- NOTE | 2021-04-05 22:21 | EDS_ITS ---
HPI HPI - Fall History of Present Illness Chief Complaint: Fall Narrative Narrative: 65-year-old male presenting with headache and neck pain. He states that on Sunday he was getting up from the toilet and fell backwards and hit his head on the side of the tub. Since then he has had head and neck pain. He has not any difficulty turning his head. He has no visual complaints, dizziness, lightheadedness. Patient has taken Tylenol for the pain. He was able to make his dialysis appointment today. Patient has had no more falls since then. He is ambulating with a cane. He states is his baseline. [facility] Medical History (HFpEF) heart failure with preserved ejection fraction Ambulates with cane Atherosclerotic heart disease of [place] coronary artery without angina pectoris Cardiology follow-up encounter Chronic cough Chronic kidney disease (CKD) CKD stage 4 due to type 2 diabetes mellitus Depression Diabetes DVT (deep venous thrombosis) DVT of lower extremity (deep venous thrombosis) (09/2018) Essential (primary) hypertension Former smoker Gastric reflux Hemodialysis access site with arteriovenous graft High cholesterol History of echocardiogram History of edema History of meniscal tear History of renal disease History of stress test Hyperlipidemia Hypertension Insulin dependent diabetes mellitus Iron deficiency anemia Obesity (BMI 30.0-34.9) Old inferior wall myocardial infarction Problem with dialysis access Shortness of breath Sleep apnea Tear of lateral meniscus of left knee Tear of medial meniscus of left knee TIA (transient ischemic attack) (09/19/18) Type 2 diabetes mellitus Vitreous hemorrhage, bilateral Home Medications nitroglycerin 0.4 mg SUBLINGUAL Q5M PRN 06/30/15 [History Last Taken 09/30/17 0.4 MG] insulin degludec 15 unit SQ DAILY 02/20/17 [History Last Taken 10/15/18 07:15] aspirin 81 mg PO DAILY #0 07/09/18 [Rx Last Taken 10/15/18 07:00] amlodipine 10 mg tablet 10 mg PO DAILY 02/10/20 [History Last Taken 01/21/21 07:45] cholecalciferol (vitamin D3) 1,250 mcg (50,000 unit) capsule 1,250 mcg PO QWEEK 02/10/20 [History Last Taken 11/15/20] cyanocobalamin (vitamin B-12) 1,000 mcg capsule 1,000 mcg PO DAILY 02/10/20 [History Last Taken Unknown] guanfacine 1 mg tablet 1 mg PO DAILY 02/10/20 [History Last Taken Unknown] carvedilol [Coreg] 12.5 mg PO BID 11/20/20 [History Last Taken 01/21/21 07:45] ferrous sulfate 325 mg PO QODAY #0 tab 11/23/20 [Rx Last Taken Unknown] furosemide [Lasix] 40 mg PO BID 02/27/21 [History Last Taken Unknown] hydralazine 100 mg PO TID 02/27/21 [History Last Taken Unknown] sodium bicarbonate 650 mg PO BID 02/27/21 [History Last Taken Unknown] atorvastatin 80 mg tablet 80 mg PO QHS #90 tab 03/25/21 [Rx Last Taken Unknown] ranolazine 500 mg tablet,extended release,12 hr 500 mg PO BID #60 tab 03/25/21 [Rx Last Taken Unknown] tamsulosin 0.4 mg capsule 0.4 mg PO DAILY #30 cap 03/25/21 [Rx Last Taken Unknown] Allergy/AdvReac Type Severity Reaction Status Date / Time escitalopram [From Lexapro] Allergy Unknown Verified 04/05/21 22:14 sertraline [From Zoloft] Allergy Unknown Verified 04/05/21 22:14 lisinopril AdvReac Severe Cough Verified 04/05/21 22:14 Family History Father blood clot Sister CVA (cerebral vascular accident) Mother Diabetes Surgical History H/O abdominal surgery History of arteriovenostomy for renal dialysis (~01/2021) History of cardiac catheterization History of coronary artery stent placement (06/17/15) Hx of hernia repair Social History Smoking Status: Former smoker alcohol intake: current alcohol intake frequency: a few times a week Alcohol ty pe: beer substance use type: does not use caffeine: Yes Type: coffee Number of servings: 3 what type of physical activity do you participate in: none seatbelt use: always do you feel safe at home: Yes ROS ROS ED Constitutional Constitutional ED: Denies chills or fever(s) Eyes Eyes: Denies blurry vision or change in vision ENT ENT ED: Denies rhinorrhea or sore throat Cardiovascular Cardiovascular: Denies chest pain or palpitations Respiratory/Chest Respiratory/Chest: Denies cough or dyspnea Gastrointestinal Gastrointestinal: Reports abdominal pain and diarrhea Musculoskeletal Musculoskeletal: Reports neck pain; Denies arthralgias or myalgias Neurologic Neurologic: Reports headache(s); Denies paresthesias or weakness EXAM Physical Exam Const Vital Signs: 04/05/21 22:10 Temperature 98.3 F Temperature Source Temporal Pulse Rate 84 Respiratory Rate 18 Blood Pressure 158/79 H Blood Pressure Mean 105 Pulse Ox 93 Oxygen Delivery Method Room Air Positive well nourished General Appearance ED: NAD HEENT Reports normocephalic atraumatic Eyes PERRL and EOMs intact bilaterally Neck full ROM Neck Narrative: No midline spinal deformity or step-off. Tenderness palpation of the right paraspinal musculature. This does extend into the right trapezius Resp normal respiratory effort and clear to auscultation bilaterally Cardio regular rate and regular rhythm GI non-tender and non-distended Palpation: soft Extremity normal to inspection Neuro oriented x3, CN's II-XII intact bilaterally, moves all extremities, no focal motor deficits and no sensory deficits noted Sensorium / Orientation: alert Psych mental status grossly normal and thought process normal Skin Lesions: no lesions Rashes: no rashes MDM MDM MDM Narrative Medical decision making narrative: 55-year-old male presenting with headache and neck pain. He states he fell 2 days ago. Patient does get heparin with dialysis. On examination he does not have any focal neurologic deficits or lateralizing signs or symptoms. I did obtain a CT of the brain and cervical spine which showed no acute findings. Patient was given a [facility] with relief of his pain. Patient is counseled that he will need Tylenol and alternate ice and heat for home. Patient discharged home in stable condition. Impression: 1. Mechanical fall 2. Closed head injury 3. Cervical strain Radiography Diagnostic Testing: Clinical Impression(s) from Imaging Studies Brain CT 04/05/21 22:20 IMPRESSION: No acute intracranial abnormality. Electronically Signed: Ace Paulino MD at 23:12 EST Tel , Service support , Cervical Spine CT 04/05/21 22:20 IMPRESSION: Multilevel degenerative changes, as described above. Electronically Signed: Wolf Fair MD at 23:09 EST , Service support , Discharge Plan Triage Chief Complaint: Fall Other Complaint: Back ED Provider: Gilson Yan Dx/Rx/DC Orders Instructions: ED Mechanical Fall, ED Head Injury (Adult), ED Neck Sprain or Strain Prescriptions: No Action ranolazine [Ranexa] 500 mg tablet extended release 12 hr 500 mg PO BID Qty: 60 RF: 11 atorvastatin 80 mg tablet 80 mg PO QHS Qty: 90 RF: 3 Hold Instructions: Pt is also on Ranexa tamsulosin [Flomax] 0.4 mg capsule 0.4 mg PO DAILY Qty: 30 RF: 0 nitroglycerin 0.4 MG tablet 0.4 mg SUBLINGUAL Q5M PRN (Reason: Chest Pain) RF: 0 insulin degludec 200 UNIT/ML insulin pen 15 unit SQ DAILY RF: 0 aspirin 81 MG tablet 81 mg PO DAILY Qty: 0 RF: 0 carvedilol [Coreg] 25 mg tablet 12.5 mg PO BID RF: 0 ferrous sulfate 325 MG tablet 325 mg PO QODAY Qty: 0 RF: 0 furosemide [Lasix] 40 mg Tablet 40 mg PO BID RF: 0 hydralazine 100 mg Tablet 100 mg PO TID RF: 0 sodium bicarbonate 650 mg tablet 650 mg PO BID RF: 0 amlodipine [Norvasc] 10 mg tablet 10 mg PO DAILY RF: 0 guanfacine 1 mg tablet 1 mg PO DAILY RF: 0 cholecalciferol (vitamin D3) 1,250 mcg (50,000 unit) capsule 1,250 mcg PO QWEEK RF: 0 cyanocobalamin (vitamin B-12) 1,000 mcg capsule 1,000 mcg PO DAILY RF: 0 Primary Care Provider: Gene Miller Referrals: Gene Miller MD [Primary Care Provider] - Disposition Disposition: Home, Self Care
[2021-04-05] MEDS: HYDROcodone Bitartrate/Apap 5/325 Tablet PO (22:26)
[2021-04-05 23:54] VITALS: RESP 18
[2021-04-06] MEDS: Ondansetron ODT 4 MG Tablet PO (00:12)
== END 2021-04-06 01:49 | disposition home or self-care (01) ==
PROVIDERS: Emergency Provider Student in an Organized Health Care Education/Training Program; PCP Family Medicine
DX: S16.1XXA Strain of muscle, fascia and tendon at neck level, initial encounter (principal); I25.10 Atherosclerotic heart disease of native coronary artery without angina pectoris; I13.0 Hypertensive heart and chronic kidney disease with heart failure and stage 1 through stage 4 chronic kidney disease, or unspecified chronic kidney disease; I50.32 Chronic diastolic (congestive) heart failure; E11.22 Type 2 diabetes mellitus with diabetic chronic kidney disease; N18.4 Chronic kidney disease, stage 4 (severe); F32.9 Major depressive disorder, single episode, unspecified; E78.5 Hyperlipidemia, unspecified; Z99.2 Dependence on renal dialysis; Z86.718 Personal history of other venous thrombosis and embolism; Z79.4 Long term (current) use of insulin; Z79.899 Other long term (current) drug therapy; Z87.891 Personal history of nicotine dependence; W18.12XA Fall from or off toilet with subsequent striking against object, initial encounter; Y93.89 Activity, other specified; Y92.002 Bathroom of unspecified non-institutional (private) residence as the place of occurrence of the external cause; Y99.8 Other external cause status
CPT/HCPCS: 70450; 72125; 99284

== ENCOUNTER → 2021-04-07 07:54 | Outpatient (CLI) | payer MEDICARE, MEDICAID, SELFPAY ==
--- NOTE | 2021-04-08 13:06 | PFT ---
INTRODUCTION: The patient is a 65-year-old male that presents for pulmonary function studies secondary to a diagnosis of dyspnea. Respiratory therapy reported good patient effort. Bronchodilators were used during testing. INTERPRETATION: Forced expiration spirometry demonstrates no evidence of a large airways obstructive ventilatory defect. There was a significant response to aerosolized bronchodilators noted. Spirograms are of good quality and plateau normally. Body plethysmography was performed and revealed a decreased TLC to 3.65 L, 57% of predicted, indicative of a severe restrictive ventilatory impairment. The remainder of the lung volumes are symmetrically reduced. Diffusing capacity by single breath CO is severely reduced as well at 36% predicted. IMPRESSION: Severe restrictive ventilatory impairment with symmetric reduction in diffusing capacity. Significant bronchodilator response was noted.
== END ==
PROVIDERS: PCP Family Medicine; Referring Provider Nurse Practitioner Family; Visit Provider Nurse Practitioner Family
DX: R06.00 Dyspnea, unspecified (principal)
CPT/HCPCS: 94060; 94726; 94729

== ENCOUNTER 2021-04-20 17:13 | Inpatient (IN) | payer MEDICARE, MEDICAID, SELFPAY ==
[2021-04-20] VITALS (7 sets, daily range): BP systolic 130–170; BP diastolic 74–126; PULSE 73–76; RESP 16–20; TEMP 36.2–36.4; O2SAT 91–97; BMI 37.9; BMI 37.5
--- NOTE | 2021-04-20 17:41 | EKG12_ITS ---
Test Reason : SOB Blood Pressure : / mmHG Vent. Rate : 072 BPM Atrial Rate : 072 BPM P-R Int : 222 ms QRS Dur : 102 ms QT Int : 440 ms P-R-T Axes : 037 015 056 degrees QTc Int : 481 ms Sinus rhythm with 1st degree A-V block Prolonged QT Abnormal ECG Confirmed by MERCEDES CASILLAS, LIZZY ([id number]), editor magazine MAYNOR TREVIZO ([id number]) on 04/25/2021 9:35:59 AM Referred By: BILL/ANABEL Confirmed By:DAVID LONG MD
[2021-04-20 18:04] LABS: Absolute Neutrophil Count 4.7 X10^3/uL (2.0-7.7); Basophil# 0.05 X10^3/uL; Basophil% 0.8 % (0-1); Eosinophil# 0.24 X10^3/uL; Eosinophils% 3.9 % (0-5); Hematocrit 30.7 % (40-54); Hemoglobin 9.4 g/dL (13.0-16.5); Lymphocyte % 8.1 % (19-41); Mean Corp Hgb Conc 30.6 g/dL (32-36); Mean Corpuscular Hgb 27.3 pg (27.0-32.0); Mean Corpuscular Volume 89.2 fL (80-94); Mean Platelet Vol. 10.5 fl (6.2-12.0); Monocyte# 0.66 X10^3/uL; Monocyte% 10.7 % (0-10); NRBC Flagged by Analyzer 0 % (0-5); Neutrophil % 76.2 % (47-70); POSITIVE DIFFERENTIAL YES; Platelet Count 203 K/mm3 (150-450); RBC Distribution Width CV 14.6 % (11.6-14.6); RBC Distribution Width SD 46.6 fl (35.1-43.9); Red Blood Count 3.44 M/mm3 (4.6-6.2); White Blood Count 6.2 K/mm3 (4.4-11.0)
[2021-04-20 18:20] LABS: Anion Gap 11 (5-15); BUN 61 mg/dL (7-18); Calcium,Total 8.4 mg/dL (8.5-10.1); Chloride 109 mmol/L (98-107); EST Glomerular Filtration Rate 10 mL/min (>60); Est Glom Filt Rate - Afr Amer 12 mL/min (>60); Estimated Creatinine Clearance 12.07 ml/min; Glucose 130 mg/dL (74-106); Potassium 4.7 mmol/L (3.5-5.1); Sodium Level 139 mmol/L (136-145); Troponin-I HS 12 pg/mL (3.0-78.0)
--- NOTE | 2021-04-20 18:20 | RAD_ITS ---
STUDY: X-RAY CHEST REASON FOR EXAM: Male, 65 years old. Chest pain TECHNIQUE: Single frontal view of the chest. COMPARISON: 02/27/2021 FINDINGS: Patchy bibasilar opacities likely represent atelectasis and small effusions. Superimposed pneumonia should be excluded clinically. Normal size heart. Normal mediastinum and lydia. Normal visualized pulmonary arteries. Normal visualized aortic arch and descending thoracic aorta. Normal visualized thoracic spine. Normal visualized ribs, clavicles, and shoulders. There is no demonstrated abnormality of the visualized soft tissue structures of the upper abdomen. RAD/Chest 1 View (Portable) IMPRESSION: Patchy bibasilar opacities likely represent atelectasis and small effusions. Superimposed pneumonia should be excluded clinically. Electronically Signed: Demetris Parada MD at 18:51 EST Tel , Service support ,
[2021-04-20 18:32] LABS: Differential Comment SCANNED; Differential Indicated SCAN CRITERIA MET
[2021-04-20 18:33] LABS: D-Dimer Quantitative (DVT/PE) 2.47 FEU/ug/m (0.27-0.49)
--- NOTE | 2021-04-20 18:39 | EDS_ITS ---
HPI History of Present Illness Chief Complaint: Shortness of Breath Narrative Narrative: 65-year-old male with shortness of breath for 2 months. He states that he has chronic kidney disease and has a fistula placed in the left upper extremity for dialysis but this has not been set up. He states he sees Dr. Sanford his pool coordinator and states that she told him that we would wait. He states he has not talked to her in a week or so. He states that she would not tell him whether or not to start dialysis. Patient states that his legs are more edematous. He states he is short of breath with exertion. He describes orthopnea as well. He was checking his home pulse ox and noted that after he walked from the kitchen to the couch his pulse ox was 73%. Patient states today when the home health care nurse came she states his O2 was 92% but this is Dr. Roca. Patient does have history of DVT but is not anticoagulated. He is describing chest pain as well as shortness of breath. [facility] Medical History (HFpEF) heart failure with preserved ejection fraction Ambulates with cane Atherosclerotic heart disease of [place] coronary artery without angina pectoris Cardiology follow-up encounter Chronic cough Chronic kidney disease (CKD) CKD stage 4 due to type 2 diabetes mellitus Depression Diabetes DVT (deep venous thrombosis) DVT of lower extremity (deep venous thrombosis) (09/2018) Essential (primary) hypertension Former smoker Gastric reflux Hemodialysis access site with arteriovenous graft High cholesterol History of echocardiogram History of edema History of meniscal tear History of renal disease History of stress test Hyperlipidemia Hypertension Insulin dependent diabetes mellitus Iron deficiency anemia Obesity (BMI 30.0-34.9) Old inferior wall myocardial infarction Problem with dialysis access Shortness of breath Sleep apnea Tear of lateral meniscus of left knee Tear of medial meniscus of left knee TIA (transient ischemic attack) (09/19/18) Type 2 diabetes mellitus Vitreous hemorrhage, bilateral Home Medications nitroglycerin 0.4 mg SUBLINGUAL Q5M PRN 06/30/15 [History Last Taken 09/30/17 0.4 MG] insulin degludec 15 unit SQ DAILY 02/20/17 [History Last Taken 10/15/18 07:15] aspirin 81 mg PO DAILY #0 07/09/18 [Rx Last Taken 10/15/18 07:00] amlodipine 10 mg tablet 10 mg PO DAILY 02/10/20 [History Last Taken 01/21/21 07:45] cholecalciferol (vitamin D3) 1,250 mcg (50,000 unit) capsule 1,250 mcg PO QWEEK 02/10/20 [History Last Taken 11/15/20] cyanocobalamin (vitamin B-12) 1,000 mcg capsule 1,000 mcg PO DAILY 02/10/20 [History Last Taken Unknown] guanfacine 1 mg tablet 1 mg PO DAILY 02/10/20 [History Last Taken Unknown] carvedilol [Coreg] 12.5 mg PO BID 11/20/20 [History Last Taken 01/21/21 07:45] ferrous sulfate 325 mg PO QODAY #0 tab 11/23/20 [Rx Last Taken Unknown] furosemide [Lasix] 40 mg PO BID 02/27/21 [History Last Taken Unknown] hydralazine 100 mg PO TID 02/27/21 [History Last Taken Unknown] sodium bicarbonate 650 mg PO BID 02/27/21 [History Last Taken Unknown] atorvastatin 80 mg tablet 80 mg PO QHS #90 tab 03/25/21 [Rx Last Taken Unknown] ranolazine 500 mg tablet,extended release,12 hr 500 mg PO BID #60 tab 03/25/21 [Rx Last Taken Unknown] ondansetron 4 mg PO Q8H PRN PRN #10 tab 04/06/21 [Rx Last Taken Unknown] tamsulosin 0.4 mg capsule 0.4 mg PO DAILY #30 cap 04/20/21 [Rx Last Taken Unknown] Allergy/AdvReac Type Severity Reaction Status Date / Time escitalopram [From Lexapro] Allergy Unknown Verified 04/20/21 17:14 sertraline [From Zoloft] Allergy Unknown Verified 04/20/21 17:14 lisinopril AdvReac Severe Cough Verified 04/20/21 17:14 Family History Father blood clot Sister CVA (cerebral vascular accident) Mother Diabetes Surgical History H/O abdominal surgery History of arteriovenostomy for renal dialysis (~01/2021) History of cardiac catheterization History of coronary artery stent placement (06/17/15) Hx of hernia repair Social History Smoking Status: Former smoker alcohol intake: current alcohol intake frequency: a few times a week Alcohol type: beer substance use type: does not use caffeine: Yes Type: coffee Number of servings: 3 what type of physical activity do you participate in: none seatbelt use: always do you feel safe at home: Yes ROS ROS ED Constitutional Constitutional ED: Denies chills or fever(s) Eyes Eyes: Denies blurry vision or diplopia ENT ENT ED: Denies rhinorrhea or sore throat Cardiovascular Cardiovascular: Reports chest pain and palpitations Respiratory/Chest Respiratory/Chest: Reports cough, dyspnea and dyspnea on exertion Gastrointestinal Gastrointestinal: Denies abdominal pain or nausea Musculoskeletal Musculoskeletal: Denies arthralgias or myalgias Integumentary Denies Abrasions or rash Neurologic Neurologic: Denies headache(s) Psychiatric Psychiatric: Denies anxiety or depression EXAM Physical Exam Const Vital Signs: 04/20/21 17:14 04/20/21 17:29 04/20/21 17:56 Temperature 97.6 F L Temperature Source Temporal Pulse Rate 73 Respiratory Rate 16 Respiratory Effort Short of Breath Respiratory Depth Normal Respiratory Pattern Normal Blood Pressure 170/74 H Blood Pressure Mean 106 Pulse Ox 92 97 Oxygen Delivery Method Room Air Nasal Cannula Oxygen Flow Rate (L/min) 2 Positive well nourished General Appearance ED: NAD; Negative for pallor HEENT Reports moist mucous membranes atraumatic Eyes PERRL and EOMs intact bilaterally Resp normal respiratory effort and clear to auscultation bilaterally Cardio regular rate and regular rhythm Neuro oriented x3 and CN's II-XII intact bilaterally Sensorium / Orientation: alert Psych mental status grossly normal Thought Process: normal thought process Skin General Skin Exam: Negative for jaundice or pallor MDM MDM MDM Narrative Medical decision making narrative: 65-year-old male presenting with worsening shortness of breath. He does have end-stage renal disease and is currently awaiting to start dialysis. He has a fistula in the left upper extremity. Patient does describe some orthopnea as well as dyspnea on exertion. He states his pulse ox dropped into the 70s when walking from the kitchen to his couch. His home health care nurse stated that his oxygen was 92 just at rest on the couch. Is not had fever, chills. He does have a slight cough. He does describe some chest discomfort but is not pressure-like or sharp. Patient EKG on my interpretation shows a normal sinus rhythm ventricular rate of 72 bpm without signs of ischemic change. There is a first-degree AV block. QTc 481. Chest x-ray on my interpretation shows patchy bibasilar opacities. Patient has previously had COVID-19 in April 2020. Patient is requiring oxygen. Appears that his creatinine has gone up to 6.10 which is much more elevated than it was previously. I spoke with Dr. Sanford his pool coordinator who recommended that he come in for dialysis. His CBC is otherwise stable. Troponin is 12. BNP is 601.1. Patient's D-dimer is elevated at 2.47 however due to his renal dysfunction I cannot perform a CTA. I discussed this with Dr. Sanford who recommended a VQ scan. This was also discussed with the hospitalist on admission since he will need to come into the hospital for dialysis anyway. Results were discussed with the patient he is amenable this plan. Impression: 1. End-stage renal disease 2. Elevated D-dimer 3. Chest pain 4. Shortness of breath 5. Pleural effusion Lab Data Attestation: I reviewed the patient's lab results. Labs: Laboratory Results - last 24 hr 04/20/21 04/20/21 04/20/21 17:53 17:53 17:53 WBC 6.2 RBC 3.44 L Hgb 9.4 L Hct 30.7 L MCV 89.2 MCH 27.3 MCHC 30.6 L RDW Std Deviation 46.6 H RDW Coeff of Lina 14.6 Plt Count 203 MPV 10.5 Immature Gran % (Auto) 0.300 Neut % (Auto) 76.2 H Lymph % (Auto) 8.1 L [place] % (Auto) 10.7 H Eos % (Auto) 3.9 Baso % (Auto) 0.8 Absolute Neuts (auto) 4.7 Absolute Lymphs (auto) 0.50 L Nucleated RBC % 0 Differential Comment SCANNED D-Dimer Quant (PE/DVT) Sodium 139 Potassium 4.7 Chloride 109 H Carbon Dioxide 19.0 L Anion Gap 11 BUN 61 H Creatinine 6.10 H Estim Creat Clear Calc 12.07 Est GFR (MDRD) Af Amer 12 L Est GFR (MDRD) Non-Af 10 L BUN/Creatinine Ratio 10.0 Glucose 130 H Calcium 8.4 L Troponin I High Sens 12 B-Natriuretic Peptide 601.1 H 04/20/21 17:53 WBC RBC Hgb Hct MCV MCH MCHC RDW Std Deviation RDW Coeff of Lina Plt Count MPV Immature Gran % (Auto) Neut % (Auto) Lymph % (Auto) [place] % (Auto) Eos % (Auto) Baso % (Auto) Absolute Neuts (auto) Absolute Lymphs (auto) Nucleated RBC % Differential Comment D-Dimer Quant (PE/DVT) 2.47 H* Sodium Potassium Chloride Carbon Dioxide Anion Gap BUN Creatinine Estim Creat Clear Calc Est GFR (MDRD) Af Amer Est GFR (MDRD) Non-Af BUN/Creatinine Ratio Glucose Calcium Troponin I High Sens B-Natriuretic Peptide Radiography Diagnostic Testing: Clinical Impression(s) from Imaging Studies Chest X-Ray 04/20/21 18:20 IMPRESSION: Patchy bibasilar opacities likely represent atelectasis and small effusions. Superimposed pneumonia should be excluded clinically. Electronically Signed: Demetris Parada MD at 18:51 EST Tel , Service support , Discharge Plan Disposition Disposition: Acute Care Hospital [facility] Discharge Date/Time: 04/20/21 20:39
[2021-04-20 19:13] LABS: BNP,B-Type NATRIURETIC PEPTIDE 601.1 pg/mL (0-100)
--- NOTE | 2021-04-20 19:16 | US_ITS ---
STUDY: VENOUS DOPPLER ULTRASOUND - BILATERAL LOWER EXTREMITIES REASON FOR EXAM: Male, 65 years old. SOB CHF AND BILATERAL LEG SWELLING TECHNIQUE: Ultrasound evaluation of the deep vein system to include perry-scale imaging and compression was performed. Perry-scale imaging and Doppler sonographic evaluation, including duplex spectral analysis and qualitative color flow sonography, was performed. COMPARISON: None. FINDINGS: RIGHT LEG Common Femoral Vein: Normal compression, spontaneity and augmentation. Normal color Doppler. Common Femoral Vein/Greater Saphenous Junction: Normal compression, no internal echoes. Femoral Proximal: Normal compression, no internal echoes. Femoral Middle: Normal compression, spontaneity and augmentation. Normal color Doppler. Femoral Distal: Normal compression, no internal echoes. Popliteal Vein: Normal compression, spontaneity and augmentation. Normal color Doppler. Posterior Tibial Vein: Normal compression, no internal echoes. Peroneal Vein: Normal compression, no internal echoes. LEFT LEG Common Femoral Vein: Normal compression, spontaneity and augmentation. Normal color Doppler. Common Femoral Vein/Greater Saphenous Junction: Normal compression, no internal echoes. Femoral Proximal: Normal compression, no internal echoes. Femoral Middle: Normal compression, spontaneity and augmentation. Normal color Doppler. Femoral Distal: Normal compression, no internal echoes. Popliteal Vein: Normal compression, spontaneity and augmentation. Normal color Doppler. Posterior Tibial Vein: Normal compression, no internal echoes. Peroneal Vein: Normal compression, no internal echoes. US/Venous Duplex Imag/Edvin Extrem IMPRESSION: Normal venous Doppler ultrasound of the bilateral lower extremities. Electronically Signed: Demetris Parada MD at 21:28 EST Tel , Service support ,
--- NOTE | 2021-04-20 20:36 | NURSING ---
Pt received two covid shots, unsure of dates and which one it was.
--- NOTE | 2021-04-20 20:38 | PCM.HP.STD ---
HPI - General General Date of Admission: 04/20/21 HPI Narrative BRI HERNANDEZ, is a 65 M with multiple comorbidities and recent hospitalization in February 2021 came to ER with progressive worsening of shortness of breath for 2 months. He stated shortness of breath is chronic problem but getting worse for last 4 to 6 weeks. Patient had pulse ox 73% at home. Orthopnea, PICKENS present.. He has reproducible sharp chest pain on right side which is chronic for many years and xiphisternum. Chest pain does not changes in characteristic with walking or shortness of breath on exertion. Patient also has chronic dry cough, nonspecific which has not changed in characteristic in last 4 weeks. Patient had Covid pneumonia last year this time and is vaccinated with 2 doses with MODERNA. Patient also states he has chronic diarrhea because of the iron tablet. Denies fever, sore throat or other URI symptoms. Patient has fistula placed in left upper extremity but dialysis had not been set up. He sees Dr. Sanford but has not seen him recently last 1 week. Patient was found hypoxic in ED. Chest x-ray reviewed and shows bibasilar atelectasis and underventilation. No significant recent prior chest x-ray of 2021-02-27. Twelve-lead EKG sinus rhythm with first-degree AV block, QTC 481 ms [facility] Medical History (HFpEF) heart failure with preserved ejection fraction Ambulates with cane Atherosclerotic heart disease of [place] coronary artery without angina pectoris Cardiology follow-up encounter Chronic cough Chronic kidney disease (CKD) CKD stage 4 due to type 2 diabetes mellitus Depression Diabetes DVT (deep venous thrombosis) DVT of lower extremity (deep venous thrombosis) (09/2018) Essential (primary) hypertension Former smoker Gastric reflux Hemodialysis access site with arteriovenous graft High cholesterol History of echocardiogram History of edema History of meniscal tear History of renal disease History of stress test Hyperlipidemia Hypertension Insulin dependent diabetes mellitus Iron deficiency anemia Obesity (BMI 30.0-34.9) Old inferior wall myocardial infarction Problem with dialysis access Shortness of breath Sleep apnea Tear of lateral meniscus of left knee Tear of medial meniscus of left knee TIA (transient ischemic attack) (09/19/18) Type 2 diabetes mellitus Vitreous hemorrhage, bilateral Home Medications nitroglycerin 0.4 mg SUBLINGUAL Q5M PRN 02/10/16 [History Last Taken 09/30/17 0.4 MG] insulin degludec 15 unit SQ DAILY 02/20/17 [History Last Taken 10/15/18 07:15] aspirin 81 mg PO DAILY #0 07/09/18 [Rx Last Taken 10/15/18 07:00] amlodipine 10 mg tablet 10 mg PO DAILY 02/10/20 [History Last Taken 01/21/21 07:45] cholecalciferol (vitamin D3) 1,250 mcg (50,000 unit) capsule 1,250 mcg PO DAILY 02/10/20 [History Last Taken 11/15/20] cyanocobalamin (vitamin B-12) 1,000 mcg capsule 1,000 mcg PO DAILY 02/10/20 [History Last Taken Unknown] guanfacine 1 mg tablet 1 mg PO DAILY 02/10/20 [History Last Taken Unknown] carvedilol [Coreg] 12.5 mg PO BID 11/20/20 [History Last Taken 01/21/21 07:45] furosemide [Lasix] 40 mg PO BID 02/27/21 [History Last Taken Unknown] hydralazine 100 mg PO TID 02/27/21 [History Last Taken Unknown] sodium bicarbonate 650 mg PO BID 02/27/21 [History Last Taken Unknown] atorvastatin 80 mg tablet 80 mg PO QHS #90 tab 03/25/21 [Rx Last Taken Unknown] ranolazine 500 mg tablet,extended release,12 hr 500 mg PO BID #60 tab 03/25/21 [Rx Last Taken Unknown] ondansetron 4 mg PO Q8H PRN PRN #10 tab 04/06/21 [Rx Last Taken Unknown] ferrous sulfate [FeroSul] 325 mg PO DAILY 04/20/21 [History Last Taken Unknown] tamsulosin 0.4 mg capsule 0.4 mg PO DAILY #30 cap 04/20/21 [Rx Last Taken Unknown] Allergy/AdvReac Type Severity Reaction Status Date / Time escitalopram [From Lexapro] Allergy Unknown Verified 04/20/21 17:14 sertraline [From Zoloft] Allergy Unknown Verified 04/20/21 17:14 lisinopril AdvReac Severe Cough Verified 04/20/21 17:14 Family History Father blood clot Sister CVA (cerebral vascular accident) Mother Diabetes Surgical History H/O abdominal surgery History of arteriovenostomy for renal dialysis (~01/2021) History of cardiac catheterization History of coronary artery stent placement (06/17/15) Hx of hernia repair Social History Smoking Status: Former smoker alcohol intake: current alcohol intake frequency: a few times a week Alcohol type: beer substance use type: does not use caffeine: Yes Type: coffee Number of servings: 3 what type of physical activity do you participate in: none seatbelt use: always do you feel safe at home: Yes ROS ROS Narrative Constitutional: Reports fatigue and weakness HEENT: Reports systems reviewed and no addt'l complaints, except as documented Respiratory/Chest: Shortness of breath at rest. Rest admission HPI Gastrointestinal: Denies coffee ground emesis, hematemesis or vomiting Genitourinary: Denies burning urination or new urinary tract symptoms Musculoskeletal: Reports joint pain and limited range of motion Extremities: Bilateral lower extremity edema. Neurologic: Denies seizure-like activity skin: Lymphedema. No skin opening or ulcer or fluid extravasation noted Endocrinology: Reports systems reviewed and no addt'l complaints, except as documented Hematologic/Lymphatic: Reports systems reviewed and no addt'l complaints, except as documented Rest 12 ROS are negative except as mentioned in HPI Vital Signs Vital Signs Vital Signs: 04/20/21 17:14 04/20/21 17:29 04/20/21 17:56 Temperature 97.6 F L Temperature Source Temporal Pulse Rate 73 Respiratory Rate 16 Respiratory Effort Short of Breath Respiratory Depth Normal Respiratory Pattern Normal Blood Pressure 170/74 H Blood Pressure Mean 106 Pulse Ox 92 97 Oxygen Delivery Method Room Air Nasal Cannula Oxygen Flow Rate (L/min) 2 04/20/21 20:26 Temperature 97.2 F L Temperature Source Temporal Pulse Rate 76 Respiratory Rate 18 Respiratory Effort Respiratory Depth Respiratory Pattern Blood Pressure 130/115 H Blood Pressure Mean 120 Pulse Ox 95 Oxygen Delivery Method Nasal Cannula Oxygen Flow Rate (L/min) 2 Weight Weight: 254 lb 10.142 oz Body Mass Index (BMI) 37.5 Physical Exam Narrative General: Alert, Oriented x3, Cooperative HEENT: Atraumatic, PERRLA, EOMI, Normocephalic Oral: No Gingival or Mucosal Lesions/ Ulcerations Neck: Supple, No JVD, Negative Carotid Bruits Lungs: Air entry diminished bilaterally. Bilateral expiratory rhonchi crepitation. Dyspnea at rest. Cardiovascular: Sinus rhythm, Normal S1, Normal S2, No murmurs. Mild right chest wall tenderness, reproducible Abdomen: Mild abdominal distention. Bowel Sounds Present, Soft, Non Tender : Little urine output/oliguria no renal angle tenderness. No suprapubic tenderness. Extremities: Bilateral lower extremity lymphedema with pitting edema. AV fistula left upper extremity. Skin: No rashes, No breakdown Musculoskeletal: No Tenderness to Palpation of Joints or Extremities Neurological: Cranial nerves II-XII grossly intact, DTR 2+/4 and Symmetrica Psych/Mental Status: Flat affect Results Lab / Micro Data Result Diagrams: 04/20/21 17:53 04/20/21 17:53 Labs: Laboratory Results - last 24 hr 04/20/21 17:53: WBC 6.2, RBC 3.44 L, Hgb 9.4 L, Hct 30.7 L, MCV 89.2, MCH 27.3, MCHC 30.6 L, RDW Std Deviation 46.6 H, RDW Coeff of Lina 14.6, Plt Count 203, MPV 10.5, Immature Gran % (Auto) 0.300, Neut % (Auto) 76.2 H, Lymph % (Auto) 8.1 L, [place] % (Auto) 10.7 H, Eos % (Auto) 3.9, Baso % (Auto) 0.8, Absolute Neuts (auto) 4.7, Absolute Lymphs (auto) 0.50 L, Nucleated RBC % 0, Differential Comment SCANNED 04/20/21 17:53: Sodium 139, Potassium 4.7, Chloride 109 H, Carbon Dioxide 19.0 L, Anion Gap 11, BUN 61 H, Creatinine 6.10 H, Estim Creat Clear Calc 12.07, Est GFR (MDRD) Af Amer 12 L, Est GFR (MDRD) Non-Af 10 L, BUN/Creatinine Ratio 10.0, Glucose 130 H, Calcium 8.4 L, Troponin I High Sens 12 04/20/21 17:53: B-Natriuretic Peptide 601.1 H 04/20/21 17:53: D-Dimer Quant (PE/DVT) 2.47 H* Micro: Microbiology 04/20/21 19:11 Nasal Secretion SARS-CoV-2 Antigen (Rapid) - Final Radiology Impression Chest X-Ray 04/20/21 18:20 IMPRESSION: Patchy bibasilar opacities likely represent atelectasis and small effusions. Superimposed pneumonia should be excluded clinically. Electronically Signed: Demetris Parada MD at 18:51 EST Tel , Service support , Assessment & Plan Assessment/Plan (1) CHF exacerbation: PLAN: 1. Acute on chronic HFpEF/diastolic heart failure: Patient is being admitted in PCU. Last echo in November 2020 shows EF 55 to 60%, no significant change from prior echo in 01/08/2020 which also showed severe concentric LVH, LA mildly enlarged, mild MR. Trivial pericardial effusion. Metal Bending Machine Operator is being consulted to start hemodialysis. Started on Lasix 40 mg IV every 8 hourly titrated as per urine output. Metal Bending Machine Operator consulted to consider start of dialysis. Normal stress test in 2015. Cycle cardiac enzymes. TSH and lipid profile tomorrow a.m. 2. Acute on chronic dyspnea on minimal exertion, multiple etiologies: Patient had PFT 04/09/2021 which showed severe restrictive ventilatory impairment with symmetric reduction in diffusing capacity. Significant bronchodilator response noted. Continue Ranexa therapy. Continue bronchodilator. Patient not candidate for CT angiogram to rule out PE. D-dimer elevated. Started on heparin 5000 subcutaneous 3 times daily. Venous duplex negative for DVT. VQ scan tomorrow a.m. 3. Cardiac conditions: Coronary artery status post PCI, dyslipidemia 4. CKD stage V: Monitor intake and output. Metal Bending Machine Operator is consulted as mentioned above. Monitor kidney function and electrolytes. On sodium bicarbonate tablet. 5. Type 2 diabetes mellitus: Accu-Chek insulin coverage Humalog sliding scale. Glucose is controlled 130 primary to failure of kidney function. 6. Anemia of chronic disease/chronic kidney disease: On ferrous sulfate. 7. Past history of DVT, morbid obesity: Patient BMI 37.6 kg/m?. As mentioned above Living will/advanced directive/end of life care: Patient does have living will or advanced directive. His son is power of stone unloader for health. After discussion of benefits/risks procedures involved with full code, DNR CC arrest and DNR CC, the patient opted for full code. Patient does want artificial life support including intubation, tube feed, ventilator and/chest compression, central venous catheter, vasopressor and DC shock if needed Total time spent in raeg-ja-demp encounter in discussion of advanced directive 16 minutes. Charges/Coding Visit Charges Inpatient E&M: 43425 Init Hosp L3 Procedures Hospitalists Procedures: 66728 Advncd Care Plan 30 Min
--- NOTE | 2021-04-20 20:42 | PCS.PANDOC ---
PANDEMIC DOCUMENTATION INITIATED: Date: 01/03/2021 Time: 190
[2021-04-20 21:20] LABS: Bedside Glucose 107 mg/dL (70-110)
[2021-04-20] MEDS: Furosemide 40 MG/4 ML Vial IV (21:35)
[2021-04-20] MEDS: 0.9% Saline Lock 10 ML Syringe IV (21:35)
[2021-04-20] MEDS: Heparin Injection (Vial) 5,000 UNIT/ML VIAL 5000 UNIT SC (21:37)
[2021-04-20] MEDS: Carvedilol 12.5 MG Tablet PO (21:38)
[2021-04-20] MEDS: Atorvastatin Calcium 80 MG Tablet PO (21:38)
[2021-04-20] MEDS: Ranolazine 500 MG Tablet PO (21:38)
[2021-04-20] MEDS: Isosorbide DN 10 MG Tablet PO (21:38)
[2021-04-20] MEDS: hydrALAZINE 50 MG Tablet 100 MG PO (21:41)
[2021-04-20 21:45] LABS: Magnesium 2.6 mg/dL (1.6-2.6); Troponin-I HS 13 pg/mL (3.0-78.0)
[2021-04-20] MEDS: Sodium Bicarbonate 650 MG Tablet PO (21:46)
[2021-04-20] MEDS: guaiFENesin 1,200 MG Tablet 1200 MG PO (21:47)
[2021-04-21] VITALS (13 sets, daily range): BP systolic 114–148; BP diastolic 54–68; PULSE 69–78; RESP 16–20; TEMP 36.6–36.9; O2SAT 95–97
[2021-04-21 00:47] LABS: Troponin-I HS 12 pg/mL (3.0-78.0)
[2021-04-21] MEDS: Isosorbide DN 10 MG Tablet PO ×3 (05:05→21:16)
[2021-04-21] MEDS: Furosemide 40 MG/4 ML Vial IV ×3 (05:05→21:16)
[2021-04-21] MEDS: Heparin Injection (Vial) 5,000 UNIT/ML VIAL 5000 UNIT SC ×3 (05:05→21:16)
[2021-04-21] MEDS: 0.9% Saline Lock 10 ML Syringe IV (05:05)
[2021-04-21] MEDS: hydrALAZINE 50 MG Tablet 100 MG PO ×3 (05:05→21:15)
[2021-04-21] MEDS: Sodium Bicarbonate 650 MG Tablet PO ×3 (05:05→21:15)
--- NOTE | 2021-04-21 05:55 | NM_ITS ---
CLINICAL: 65-year-old male with reported history of chest discomfort, shortness of breath, elevation of the d-dimer and prior history of lower extremity deep venous thrombosis. VENTILATION-PERFUSION LUNG SCINTIGRAPHY COMPARISON: Bilateral lower extremities venous DOPPLER report 04/20/2021, plain film chest radiograph report 04/20/2021 FINDINGS: The patient was administered 47.9 mCi 99m Tc DTPA aerosol. The aerosol ventilation study demonstrates relatively normal ventilation identified throughout the bilateral lung nicolas. Central clumping of the aerosol is noted in the bilateral hemithorax. Following the intravenous administration of 5.6 mCi of 99m Tc MAA the pulmonary perfusion study reveals uniform perfusion throughout both lung nicolas. There are no segmental or subsegmental perfusion defects identified. There are no ventilation-perfusion mismatches observed. NM/Lung Scan Vent/Perf IMPRESSION: 1. NORMAL 99m Tc MAA pulmonary perfusion imaging examination, according to PIOPED II interpretive criteria. (Sotsman et al, Radiology 246: 941, 2008 Sotscesar et al, J Nucl Med 49: 1741, 2008). 2. Central clumping of the aerosol may be secondary to obstructive airway mechanics and or clinical tachypnea. Electronically Signed: Kraig Clemente DO at 23:19 EST Tel , Service support ,
[2021-04-21 07:52] LABS: Absolute Lymphocyte Count 0.48 X10^3/uL (0.83-4.51); Absolute Neutrophil Count 4.1 X10^3/uL (2.0-7.7); Basophil# 0.06 X10^3/uL; Eosinophil# 0.27 X10^3/uL; Eosinophils% 4.7 % (0-5); Hematocrit 27.4 % (40-54); Hemoglobin 8.3 g/dL (13.0-16.5); Lymphocyte # 0.48 X10^3/ul (0.83-4.51); Lymphocyte % 8.3 % (19-41); Mean Corp Hgb Conc 30.3 g/dL (32-36); Mean Corpuscular Hgb 26.8 pg (27.0-32.0); Mean Corpuscular Volume 88.4 fL (80-94); Mean Platelet Vol. 10.5 fl (6.2-12.0); Monocyte# 0.79 X10^3/uL; Monocyte% 13.7 % (0-10); NRBC Flagged by Analyzer 0 % (0-5); Neutrophil # 4.14 X10^3/uL (2.7-7.7); POSITIVE DIFFERENTIAL YES; Platelet Count 180 K/mm3 (150-450); RBC Distribution Width CV 14.5 % (11.6-14.6); RBC Distribution Width SD 46.4 fl (35.1-43.9); White Blood Count 5.8 K/mm3 (4.4-11.0)
[2021-04-21 08:10] LABS: Differential Indicated SCAN CRITERIA MET
[2021-04-21 08:23] LABS: Anion Gap 6 (5-15); BUN 63 mg/dL (7-18); BUN/Creat Ratio 10.3 RATIO (10-20); Calcium,Total 8.2 mg/dL (8.5-10.1); Chloride 112 mmol/L (98-107); Cholesterol 116 mg/dL (200); Creatinine, Serum 6.13 mg/dL (0.70-1.30); EST Glomerular Filtration Rate 10 mL/min (>60); Est Glom Filt Rate - Afr Amer 12 mL/min (>60); Estimated Creatinine Clearance 12.01 ml/min; Glucose 105 mg/dL (74-106); High Density Lipoprotein 26 mg/dL; Phosphorus 5.2 mg/dL (2.5-4.9); Potassium 4.7 mmol/L (3.5-5.1); Sodium Level 140 mmol/L (136-145); Thyroid Stim Hormone (TSH) 1.85 uIU/mL (0.358-3.74); Triglycerides 101 mg/dL; Very Low Density Lipoprotein 20 mg/dL (5-40)
[2021-04-21] MEDS: Tamsulosin HCl 0.4 MG Capsule PO (08:26)
[2021-04-21] MEDS: guaiFENesin 1,200 MG Tablet 1200 MG PO ×2 (08:27→21:15)
[2021-04-21] MEDS: Ranolazine 500 MG Tablet PO ×2 (08:27→21:15)
[2021-04-21] MEDS: Aspirin E.C. 81 MG Tablet PO (08:27)
[2021-04-21] MEDS: Cyanocobalamin 500 MCG Tablet 1000 MCG PO (08:28)
[2021-04-21] MEDS: Carvedilol 12.5 MG Tablet PO ×2 (08:32→21:16)
[2021-04-21] MEDS: Ferrous Sulfate 325 MG Tablet PO (08:32)
[2021-04-21 08:46] LABS: Bedside Glucose 99 mg/dL (70-110)
--- NOTE | 2021-04-21 09:07 | PCM.CONS.R ---
Assessment & Plan Assessment/Plan (1) CKD stage 5 due to type 2 diabetes mellitus: PLAN: Creatinine increased from 4 range to 6 after lasix dose increased as outpt. AVF with good thrill and bruit. Check 24h urine CRCL. May need to initiate dialysis while hospitalized. Discussed with pt. (2) Dyspnea on minimal exertion: PLAN: chronic with leg edema. Continue lasix iv. Edema improved. Positive DDimer but negative DVT and negative PE. (3) Essential (primary) hypertension: PLAN: stable BP (4) Iron deficiency anemia: PLAN: on iron, JOHAN (5) Diabetes mellitus type 2, insulin dependent: (6) CAD (coronary artery disease): (7) Nephrotic syndrome: PLAN: chronic leg edema due to nephrotic proteinuria HPI Consult Data Date of Consult: 04/22/21 HPI Narrative HPI Narrative: BRI HERNANDEZ, is a 65 M who presents with worsening shortness of breath, leg edema. Ddimer was elevated with negative venous dopplers of BLE for DVT, VQ negative for PE. Creatinine was elevated from 4 range to 6.13 eGFR 13cc/min after his lasix dose was increased for complaints of leg edema and SOB at his last office appt with me on 04/07/21. He has nephrotic proteinuria from diabetic nephropathy. He has chronic SOB and edema. Leg edema improved since last office visit. Urine output unchanged on iv lasix on admission. Appetite fair with chronic nausea. He has an AVF left upper arm that is matured. His last 24h urine CRCL was 25cc/min in November 2020. We discussed possibility of initiating dialysis during current hospitalization. Will repeat 24h urine CRCL. [facility] Medical History (HFpEF) heart failure with preserved ejection fraction Ambulates with cane Atherosclerotic heart disease of [place] coronary artery without angina pectoris Cardiology follow-up encounter Chronic cough Chronic kidney disease (CKD) CKD stage 4 due to type 2 diabetes mellitus Depression Diabetes DVT (deep venous thrombosis) DVT of lower extremity (deep venous thrombosis) (09/2018) Essential (primary) hypertension Former smoker Gastric reflux Hemodialysis access site with arteriovenous graft High cholesterol History of echocardiogram History of edema History of meniscal tear History of renal disease History of stress test Hyperlipidemia Hypertension Insulin dependent diabetes mellitus Iron deficiency anemia Obesity (BMI 30.0-34.9) Old inferior wall myocardial infarction Problem with dialysis access Shortness of breath Sleep apnea Tear of lateral meniscus of left knee Tear of medial meniscus of left knee TIA (transient ischemic attack) (09/19/18) Type 2 diabetes mellitus Vitreous hemorrhage, bilateral Home Medications nitroglycerin 0.4 mg SUBLINGUAL Q5M PRN 06/30/15 [History Last Taken 09/30/17 0.4 MG] insulin degludec 15 unit SQ DAILY 02/20/17 [History Last Taken 10/15/18 07:15] aspirin 81 mg PO DAILY #0 07/09/18 [Rx Last Taken 10/15/18 07:00] amlodipine 10 mg tablet 10 mg PO DAILY 02/10/20 [History Last Taken 01/21/21 07:45] cholecalciferol (vitamin D3) 1,250 mcg (50,000 unit) capsule 1,250 mcg PO DAILY 02/10/20 [History Last Taken 11/15/20] cyanocobalamin (vitamin B-12) 1,000 mcg capsule 1,000 mcg PO DAILY 02/10/20 [History Last Taken Unknown] guanfacine 1 mg tablet 1 mg PO DAILY 02/10/20 [History Last Taken Unknown] carvedilol [Coreg] 12.5 mg PO BID 11/20/20 [History Last Taken 01/21/21 07:45] furosemide [Lasix] 40 mg PO BID 02/27/21 [History Last Taken Unknown] hydralazine 100 mg PO TID 02/27/21 [History Last Taken Unknown] sodium bicarbonate 650 mg PO BID 02/27/21 [History Last Taken Unknown] atorvastatin 80 mg tablet 80 mg PO QHS #90 tab 03/25/21 [Rx Last Taken Unknown] ranolazine 500 mg tablet,extended release,12 hr 500 mg PO BID #60 tab 03/25/21 [Rx Last Taken Unknown] ondansetron 4 mg PO Q8H PRN PRN #10 tab 04/06/21 [Rx Last Taken Unknown] ferrous sulfate [FeroSul] 325 mg PO DAILY 04/20/21 [History Last Taken Unknown] tamsulosin 0.4 mg capsule 0.4 mg PO DAILY #30 cap 04/20/21 [Rx Last Taken Unknown] Allergy/AdvReac Type Severity Reaction Status Date / Time escitalopram [From Lexapro] Allergy Unknown Verified 04/20/21 17:14 sertraline [From Zoloft] Allergy Unknown Verified 04/20/21 17:14 lisinopril AdvReac Severe Cough Verified 04/20/21 17:14 Family History Father blood clot Sister CVA (cerebral vascular accident) Mother Diabetes Surgical History H/O abdominal surgery History of arteriovenostomy for renal dialysis (~01/2021) History of cardiac catheterization History of coronary artery stent placement (06/17/15) Hx of hernia repair Social History Smoking Status: Former smoker alcohol intake: current alcohol intake frequency: a few times a week Alcohol type: beer substance use type: does not use caffeine: Yes Type: coffee Number of servings: 3 what type of physical activity do you participate in: none seatbelt use: always do you feel safe at home: Yes ROS Constitutional Constitutional: Reports malaise and weakness; Denies chills or fever(s) ENT HEENT: Denies epistaxis Cardiovascular Cardiovascular: Reports leg edema; Denies chest pain or syncope Respiratory/Chest Respiratory/Chest: Reports dyspnea on exertion and shortness of breath at rest; Denies dry cough Gastrointestinal Gastrointestinal: Reports nausea; Denies abdominal pain, diarrhea or vomiting Genitourinary Genitourinary: Denies difficulty urinating Musculoskeletal Musculoskeletal: Reports other Details: generalized weakness, chronic ; Denies tremors Integumentary Integumentary: Denies dry skin or lesions Neurologic Neurologic: Reports weakness Psychiatric Psychiatric: Reports anxiety and depression Endocrine Endocrinology: Denies cold intolerance or heat intolerance Hematologic/Lymphatic Hematologic/Lymphatic: Reports anemia Physical Exam Const alert, oriented x3 and no apparent distress HEENT normocephalic Eyes EOMs intact bilaterally Neck no JVD Resp clear to auscultation bilaterally Cardio regular rate and no rub GI non-tender and non-distended Auscultation: normoactive bowel sounds Palpation: soft Extremity Extremity Narrative: +thrill and bruit, hematoma size unchanged General Extremity: AV fistula and edema bilateral (improved from baseline) Skin no wounds Neuro Sensorium / Orientation: awake and alert Psych cooperative Lab / Micro Data Result Diagrams: 04/21/21 07:40 04/21/21 07:40 Labs: Laboratory Results - last 24 hr 04/20/21 17:53: WBC 6.2, RBC 3.44 L, Hgb 9.4 L, Hct 30.7 L, MCV 89.2, MCH 27.3, MCHC 30.6 L, RDW Std Deviation 46.6 H, RDW Coeff of Lina 14.6, Plt Count 203, MPV 10.5, Immature Gran % (Auto) 0.300, Neut % (Auto) 76.2 H, Lymph % (Auto) 8.1 L, [place] % (Auto) 10.7 H, Eos % (Auto) 3.9, Baso % (Auto) 0.8, Absolute Neuts (auto) 4.7, Absolute Lymphs (auto) 0.50 L, Nucleated RBC % 0, Differential Comment SCANNED 04/20/21 17:53: Sodium 139, Potassium 4.7, Chloride 109 H, Carbon Dioxide 19.0 L, Anion Gap 11, BUN 61 H, Creatinine 6.10 H, Estim Creat Clear Calc 12.07, Est GFR (MDRD) Af Amer 12 L, Est GFR (MDRD) Non-Af 10 L, BUN/Creatinine Ratio 10.0, Glucose 130 H, Calcium 8.4 L, Troponin I High Sens 12 04/20/21 17:53: B-Natriuretic Peptide 601.1 H 04/20/21 17:53: D-Dimer Quant (PE/DVT) 2.47 H* 04/20/21 20:50: POC Glucose 107 04/20/21 21:00: Magnesium 2.6, Troponin I High Sens 13 04/20/21 23:07: Troponin I High Sens 12 04/21/21 07:40: WBC 5.8, RBC 3.10 L, Hgb 8.3 L, Hct 27.4 L, MCV 88.4, MCH 26.8 L, MCHC 30.3 L, RDW Std Deviation 46.4 H, RDW Coeff of Lina 14.5, Plt Count 180, MPV 10.5, Immature Gran % (Auto) 0.300, Neut % (Auto) 72.0 H, Lymph % (Auto) 8.3 L, [place] % (Auto) 13.7 H, Eos % (Auto) 4.7, Baso % (Auto) 1.0, Absolute Neuts (auto) 4.1, Absolute Lymphs (auto) 0.48 L, Nucleated RBC % 0, Differential Comment COMMENT 04/21/21 07:40: Sodium 140, Potassium 4.7, Chloride 112 H, Carbon Dioxide 22.0, Anion Gap 6, BUN 63 H, Creatinine 6.13 H, Estim Creat Clear Calc 12.01, Est GFR (MDRD) Af Amer 12 L, Est GFR (MDRD) Non-Af 10 L, BUN/Creatinine Ratio 10.3, Glucose 105, Calcium 8.2 L, Phosphorus 5.2 H, Triglycerides 101, Cholesterol 116, LDL Cholesterol 70, VLDL Cholesterol 20, HDL Cholesterol 26 L, TSH 1.85 04/21/21 08:22: POC Glucose 99 Micro: Microbiology 04/20/21 19:11 Nasal Secretion SARS-CoV-2 Antigen (Rapid) - Final Radiology Impression Chest X-Ray 04/20/21 18:20 IMPRESSION: Patchy bibasilar opacities likely represent atelectasis and small effusions. Superimposed pneumonia should be excluded clinically. Electronically Signed: Demetris Parada MD at 18:51 EST Tel , Service support , Venous Duplex 04/20/21 19:16 IMPRESSION: Normal venous Doppler ultrasound of the bilateral lower extremities. Electronically Signed: Demetris Parada MD at 21:28 EST Tel , Service support ,
--- NOTE | 2021-04-21 11:50 | CASEMGMT ---
ALIREZA MAYER assessment: Face to Face with patient for initial transition planning/care coordination assessment. RN LEYLA introduced self and role at [facility], pt voices understanding and consents to assessment. Pt is sitting up in bed in no distress on 2L nc. Pt is A/Ox4 and answers all questions appropriately. Care providers, pharmacy, and demographics verified/updated. Presentation: Pt c/o SOB, lower ext edema-hx CHF Admitting dx: CHF exac PCP: Paul Specialists: Juvenal, nephro; Pradeep, heme; Miri, cardio; Wasinki, eyes Preferred Pharmacy: [facility] Insurance: [employer] Prescription Benefit: [employer] Living Will/HPOA: Pt has LW/HPOA and is aware that they are not on file at [facility]. Pt states his son, Eber Landrum, is HPOA. LNOK: Eber Landrum, son/HPOA; Jono Patel, friend Living Arrangements: Pt states lives with roommate in 1 story home with 4-5 steps in and states no concerns at home. Pt is independent with ADL's. Transportation: Pt states roommate drives or uses [facility] and states no transportation concerns. DME/HHC: Pt has the following DME: cane, grab bars, tub bench and w/c lift into home(for roommate). Pt states no preference for DME company, if qualifies for home oxygen at discharge. Pt states is active with [facility] for SN and has been to [facility] in the past. Per Dr. Sanford, pt may need set up with OP HD at discharge. Pt states that he would like [facility] if he does need HD. Pt states no concerns with going home at discharge. Pt is retired. Pt states does not smoke or drink ETOH. Pt voices no further concerns/needs. CM to follow for HD set up, PT/OT notes, and any further discharge planning/needs. Advised pt to ask for CM if any further questions/concerns/needs arise, voices understanding. Pt Goal: Home Plan: Home w/ new HD. [place] ALIREZA MAYER
[2021-04-21 12:46] LABS: Bedside Glucose 125 mg/dL (70-110)
[2021-04-21 16:56] LABS: Bedside Glucose 137 mg/dL (70-110)
--- NOTE | 2021-04-21 19:10 | PCM.PN.HOSP ---
Subjective Subjective Patient was seen and examined today, he is lying in bed with the oxygen off his nose, he states that he went to blow his nose and forgot to put the oxygen back on. Patient was seen in consultation by nephrology today who feels the patient may need to be placed on dialysis. Patient states that he is putting out urine and he is currently on IV Lasix. Patient is requiring only 2 L of oxygen at this time. Objective Data Objective Data Vital Signs: Vital Signs Temp Pulse Resp BP Pulse Ox 98.2 F 76 18 132/66 H 97 04/21/21 14:00 04/21/21 17:00 04/21/21 14:00 04/21/21 14:09 04/21/21 14:00 Oxygen Flow Rate (L/min) 2 Oxygen Delivery Method Nasal Cannula Weight: 116 kg Body Mass Index (BMI) 37.5 Intake & Output: Intake and Output for Last 24 Hours 04/19/21 04/20/21 04/21/21 23:59 23:59 23:59 Intake Total 890 / 890 Output Total 1600 / 1600 Balance -710 / -710 Lab / Micro Data Result Diagrams: 04/21/21 07:40 04/22/21 08:40 Labs: Laboratory Results - last 24 hr 04/20/21 17:53: B-Natriuretic Peptide 601.1 H 04/20/21 20:50: POC Glucose 107 04/20/21 21:00: Magnesium 2.6, Troponin I High Sens 13 04/20/21 23:07: Troponin I High Sens 12 04/21/21 07:40: WBC 5.8, RBC 3.10 L, Hgb 8.3 L, Hct 27.4 L, MCV 88.4, MCH 26.8 L, MCHC 30.3 L, RDW Std Deviation 46.4 H, RDW Coeff of Lina 14.5, Plt Count 180, MPV 10.5, Immature Gran % (Auto) 0.300, Neut % (Auto) 72.0 H, Lymph % (Auto) 8.3 L, Mcduffie % (Auto) 13.7 H, Eos % (Auto) 4.7, Baso % (Auto) 1.0, Absolute Neuts (auto) 4.1, Absolute Lymphs (auto) 0.48 L, Nucleated RBC % 0, Differential Comment COMMENT 04/21/21 07:40: Sodium 140, Potassium 4.7, Chloride 112 H, Carbon Dioxide 22.0, Anion Gap 6, BUN 63 H, Creatinine 6.13 H, Estim Creat Clear Calc 12.01, Est GFR (MDRD) Af Amer 12 L, Est GFR (MDRD) Non-Af 10 L, BUN/Creatinine Ratio 10.3, Glucose 105, Calcium 8.2 L, Phosphorus 5.2 H, Triglycerides 101, Cholesterol 116, LDL Cholesterol 70, VLDL Cholesterol 20, HDL Cholesterol 26 L, TSH 1.85 04/21/21 08:22: POC Glucose 99 04/21/21 11:52: POC Glucose 125 H 04/21/21 16:40: POC Glucose 137 H Micro: Microbiology 04/20/21 19:11 Nasal Secretion SARS-CoV-2 Antigen (Rapid) - Final Radiography Diagnostic Testing: Radiology Impression Venous Duplex 04/20/21 19:16 IMPRESSION: Normal venous Doppler ultrasound of the bilateral lower extremities. Electronically Signed: Demetris Parada MD at 21:28 EST Tel , Service support , Physical Exam Const alert, oriented x3 and no apparent distress General Appearance: cooperative, well kempt and well developed Orientation / Consciousness: awake, oriented to person, oriented to place and oriented to time HEENT normocephalic and moist oral mucous membranes Eyes PERRL, EOMs intact bilaterally and conjunctivae normal Neck nuchal rigidity, supple, no JVD and thyroid normal General: trachea midline Resp normal respiratory effort, no retractions, no use of accessory muscles and clear to auscultation bilaterally Auscultation: Negative for rales, rhonchi or wheezes Cardio regular rate, regular rhythm, S1 normal heart sound, S2 normal heart sound, no murmurs, no rub and no gallops GI normal to inspection, nondistended, normoactive bowel sounds, soft to palpation, non-tender and non-distended Extremity no clubbing, cyanosis or edema Skin no rashes or lesions noted General Skin Exam: no breakdown Neuro oriented x3, CN's II-XII intact bilaterally, no focal motor deficits and no sensory deficits noted Sensorium / Orientation: awake and alert Speech: speech normal Psych thought process normal and affect normal Assessment & Plan Assessment/Plan (1) CHF exacerbation: QUALIFIERS: Heart failure type: unspecified Qualified Code(s): I50.9 - Heart failure, unspecified PLAN: 1. Acute on chronic diastolic congestive heart failure-patient will remain on IV Lasix at this time #2 acute hypoxic respiratory failure secondary to #1-if patient does not respond to IV Lasix, he may need to undergo dialysis. #3 chronic kidney disease stage V secondary to type 2 diabetes-patient is being followed by Dr. Sanford, he may be candidate for dialysis during this admission. #4 type 2 diabetes-blood sugars will be monitored #5 anemia of chronic kidney disease #6 coronary artery disease #7 essential hypertension #8 hyperlipidemia Charges/Coding Visit Charges Inpatient E&M: 13534 Subs Hosp L2
[2021-04-21] MEDS: Ondansetron ODT 4 MG Tablet PO (21:13)
[2021-04-21] MEDS: Atorvastatin Calcium 80 MG Tablet PO (21:15)
[2021-04-21] MEDS: MELATONIN 3 MG TABLET PO (21:16)
[2021-04-21 22:55] LABS: Bedside Glucose 155 mg/dL (70-110)
[2021-04-21] MEDS: Insulin Lispro 100 UNIT/ML INSULN.PEN SC (23:50)
[2021-04-22] VITALS (13 sets, daily range): BP systolic 118–155; BP diastolic 48–69; PULSE 67–81; RESP 16–18; TEMP 36.5–37.1; O2SAT 93–96
[2021-04-22] MEDS: Heparin Injection (Vial) 5,000 UNIT/ML VIAL 5000 UNIT SC ×2 (05:33→20:59)
[2021-04-22] MEDS: Isosorbide DN 10 MG Tablet PO ×2 (05:33→20:59)
[2021-04-22] MEDS: Furosemide 40 MG/4 ML Vial IV (05:34)
[2021-04-22] MEDS: Sodium Bicarbonate 650 MG Tablet PO ×2 (05:34→14:45)
[2021-04-22] MEDS: hydrALAZINE 50 MG Tablet 100 MG PO ×2 (05:34→20:59)
[2021-04-22 07:06] LABS: Bedside Glucose 92 mg/dL (70-110)
[2021-04-22] MEDS: Carvedilol 12.5 MG Tablet PO ×2 (08:35→20:59)
[2021-04-22] MEDS: Tamsulosin HCl 0.4 MG Capsule PO (08:35)
[2021-04-22] MEDS: Cyanocobalamin 500 MCG Tablet 1000 MCG PO (08:36)
[2021-04-22] MEDS: Ranolazine 500 MG Tablet PO ×2 (08:36→20:59)
[2021-04-22] MEDS: Aspirin E.C. 81 MG Tablet PO (08:36)
[2021-04-22] MEDS: guaiFENesin 1,200 MG Tablet 1200 MG PO ×2 (08:36→20:59)
[2021-04-22 09:05] LABS: Anion Gap 8 (5-15); BUN 65 mg/dL (7-18); Chloride 111 mmol/L (98-107); Creatinine, Serum 6.49 mg/dL (0.70-1.30); EST Glomerular Filtration Rate 9 mL/min (>60); Est Glom Filt Rate - Afr Amer 11 mL/min (>60); Estimated Creatinine Clearance 11.35 ml/min; Glucose 119 mg/dL (74-106); Potassium 5.5 mmol/L (3.5-5.1); Sodium Level 138 mmol/L (136-145)
--- NOTE | 2021-04-22 09:34 | PN_ITS ---
Progress Note renal fxn worse, 24h urine CRCL in progress. Will initiate dialysis today with new fistula protocol. He will need outpt dialysis set up prior to discharge. Physical Exam Const alert and oriented x3 Resp Auscultation: clear to auscultation bilaterally Cardio regular rate Assessment & Plan Assessment/Plan (1) CKD stage 5 due to type 2 diabetes mellitus: PLAN: Progressive renal failure to ESRD. Creatinine elevation on iv lasix, hyperkalemic with metabolic acidosis. Chronic SOB and edema due to nephrotic proteinuria from DMN. He will receive dialysis today with new fistula protocol and repeat treatment tomorrow. outpt dialysis arranged at [facility] TTS 1st shift. DW hospitalist and CM. (2) Dyspnea on minimal exertion: PLAN: chronic with leg edema. Continue lasix iv. Edema improved. Positive DDimer but negative DVT and negative PE. (3) Essential (primary) hypertension: PLAN: stable BP (4) Iron deficiency anemia: PLAN: on iron, JOHAN. Continue admin on dialysis. May discontinue oral iron and bicarb once dialysis initiated. (5) Diabetes mellitus type 2, insulin dependent: (6) CAD (coronary artery disease): (7) Nephrotic syndrome: PLAN: chronic leg edema due to nephrotic proteinuria (8) Hyperkalemia: PLAN: correct with dialysis (9) Metabolic acidosis: PLAN: due to CKD. correct with dialysis
--- NOTE | 2021-04-22 10:19 | CASEMGMT ---
Addendum entered by Molly Sandy 04/22/21 15:17: Call back from Hali at [facility] and she states pt is financially and medically cleared to start dialysis on sunday at 0650. Hep result to be faxed once obtained. Green sheet on chart for HHC/O2, if qualifies. Scott LAY CM Addendum entered by Molly Sandy 04/22/21 14:46: Pt provided schedule letter and updated on all dialysis info/process, voices understanding. Green sheet on chart for HHC and possible Home oxygen. [facility] was notified of pt admission and that pt would like to add PT/OT. Clinicals and RICK order with addition of PT/OT faxed to [facility]. Pt voices no further questions/concerns/needs. Pt states will use [employer] for transportation until dialysis center can assist. Call to Hali at [facility] to see about finan/med clearance and per Hali, she cleared pt medically and will check on the financial and call this RN LEYLA back. Hep result will need faxed once obtained. Scott LAY CM Addendum entered by Molly Sandy 04/22/21 14:41: Schedule letter received from [facility] and message left with Beth at [facility] to clarify that pt is financially and medically cleared. Fistula OP reports faxed to [facility]. Scott LAY CM Addendum entered by Molly Sandy 04/22/21 13:06: This RN LEYLA spoke with Hali at [facility] and she states pt will be TTS at 0650 with arrival time of 0615. Call from [facility] admissions and clinicals that were faxed are verified w/ her at this time. Contact at [facility]: ext. [phone]. CM updated admissions on planned chair time and she states she will verify with [facility]. CM to follow. Scott LAY CM Original Note: This RN CM received a call from Dr. Kandis Sanford stating that pt will need set up with OP HD. Referral faxed to [facility] and [facility] per pt preference. Per Dr. Sanford, pt has a fistula already in place and plan for 1st HD today. Call to [facility] to notify of referral, voice understanding. CM to follow. Scott LAY CM
[2021-04-22 11:01] LABS: Creat.Clear Total Volume 750 mL; Creatinine Clearance 6 ml/min (100-200); Creatinine Serum Creat 6.5 mg/dL (0.8-1.3); EST Glomerular Filtration Rate 9 mL/min (>60); Est Glom Filt Rate - Afr Amer 11 mL/min (>60)
--- NOTE | 2021-04-22 11:17 | CASEMGMT ---
SW received a referral regarding patient being depressed. SW met with patient, introduced self and role at [facility]. Patient confirmed he is depressed. He is on the fence about whether or not he wants to go to counseling. He did accept the list of local counselors that are in network with his insurance. SW let him know that if he would like SW to schedule an appt for him he can just ask for SW. Patient asked what else SW can do for him. SW asked what he needed. Patient did not really have an answer other than, I talk to people and they have a Information Strategist and I want a Information Strategist. SW asked patient if he needs help with any personal care tasks such as bathing. Patient said he would benefit from help. SW explained [facility] and their Passport program. SW told patient SW can call his insurance with the referral and they would then make referral to [facility]. He was in agreement with this plan. SW called [facility] for referral. However, a recording came on indicating they are receiving a high volume of calls and SW had to leave a message. SW left a message await a return call. Sasha Olivas RESEARCH ASST TANI
[2021-04-22] MEDS: Epoetin Alfa epbx 10,000 UNITS/ML 10000 UNIT SC (11:41)
[2021-04-22 11:55] LABS: Bedside Glucose 103 mg/dL (70-110)
--- NOTE | 2021-04-22 13:04 | CASEMGMT ---
Pt qualifies for palliative c/s per palliative screening tool and Dr. Mcginnis is agreeable. Order placed and referral emailed. Scott LAY CM
--- NOTE | 2021-04-22 13:11 | PCM.PN.HOSP ---
Documented by User: Catalina Villatoro NP-Leigh 04/22/21 13:44 Subjective Subjective Seen and examined. Patient sitting in bed no distress noted. Discussed with patient probable need for dialysis. Patient verbalized understanding and states that he discussed this with Dr. Sanford yesterday. Objective Data Objective Data Vital Signs: Vital Signs Temp Pulse Resp BP Pulse Ox 97.7 F L 69 16 125/55 H 94 04/22/21 08:29 04/22/21 08:29 04/22/21 09:43 04/22/21 08:29 04/22/21 08:29 Oxygen Flow Rate (L/min) 3 Oxygen Delivery Method Nasal Cannula Weight: 256 lb 6.362 oz Body Mass Index (BMI) 37.5 Intake & Output: Intake and Output for Last 24 Hours 04/20/21 04/21/21 04/22/21 23:59 23:59 23:59 Intake Total 890 / 890 540 / 540 Output Total 1600 / 1900 300 / 300 Balance -710 / -1010 240 / 240 Lab / Micro Data Result Diagrams: 04/21/21 07:40 04/22/21 08:40 Labs: Laboratory Results - last 24 hr 04/21/21 10:20: Creatinine 6.5 H, Est GFR (MDRD) Af Amer 11 L, Est GFR (MDRD) Non-Af 9 L, Urine Collection Time 24.0, Timed Urine Volume 750, Urine Creatinine 73.0, Creatinine Clearance 6 L 04/21/21 16:40: POC Glucose 137 H 04/21/21 21:23: POC Glucose 155 H 04/22/21 06:36: POC Glucose 92 04/22/21 08:40: Sodium 138, Potassium 5.5 H, Chloride 111 H, Carbon Dioxide 19.0 L, Anion Gap 8, BUN 65 H, Creatinine 6.49 H, Estim Creat Clear Calc 11.35, Est GFR (MDRD) Af Amer 11 L, Est GFR (MDRD) Non-Af 9 L, BUN/Creatinine Ratio 10.0, Glucose 119 H, Calcium 8.0 L 04/22/21 11:35: POC Glucose 103 Micro: Microbiology 04/20/21 19:11 Nasal Secretion SARS-CoV-2 Antigen (Rapid) - Final Radiography Diagnostic Testing: Radiology Impression Lung Scan-VQ NM 04/21/21 05:55 IMPRESSION: 1. NORMAL 99m Tc MAA pulmonary perfusion imaging examination, according to PIOPED II interpretive criteria. (Soabraham et al, Radiology 246: 941, 2008 Soabraham et al, J Nucl Med 49: 1741, 2008). 2. Central clumping of the aerosol may be secondary to obstructive airway mechanics and or clinical tachypnea. Electronically Signed: Kraig Clemente, DO at 23:19 EST Tel , Service support , Physical Exam Const alert, oriented x3 and no apparent distress HEENT head/scalp atraumatic Head and Scalp: normocephalic Eyes conjunctivae normal and no scleral icterus Neck full ROM and supple General: trachea midline Resp normal respiratory effort and normal air movement Auscultation: crackles bilateral throughout and diffuse Cardio regular rate, regular rhythm, S1 normal heart sound and S2 normal heart sound Cardio Narrative: Bruit and thrill present to fistula to left upper extremity GI normal to inspection, nondistended, normoactive bowel sounds, soft to palpation and non-tender Extremity normal to inspection and full ROM General Extremity: edema bilateral lower extremity Details: moderate Peripheral Pulses: Yes pulses 2+ throughout Skin no rashes or lesions noted, no wounds and skin turgor normal Neuro oriented x3, moves all extremities, no focal motor deficits and no sensory deficits noted Sensorium / Orientation: awake and alert Psych affect normal Assessment & Plan Assessment/Plan (1) Hyperkalemia: (2) CKD stage 5 due to type 2 diabetes mellitus: (3) CHF exacerbation: QUALIFIERS: Heart failure type: unspecified Qualified Code(s): I50.9 - Heart failure, unspecified PLAN: 1. CHF exacerbation -Continue IV Lasix -Patient currently on 3 L nasal cannula oxygen 2. CKD stage V -Per Dr. Sanford's consult note from this morning patient will be initiated on dialysis with treatments planned for today and tomorrow. -Daily BMP ordered -Patient has fistula to left upper arm which is ready for use, patient has not previously been on dialysis. -Continue ranolazine 3. Hyperkalemia -Potassium elevated at 5.5 today however patient receiving dialysis this afternoon -BMP ordered daily 4. Diabetes mellitus type 2 -AC at bedtime blood sugars with sliding scale insulin ordered -Continue Lantus every morning DVT prophylaxis-subcu heparin This patient was seen by Catalina Villatoro, KARINE-C under the supervision of Dr. Mcginnis. Documented by User: Dr. Dontrell Mcginnis, DO 04/22/21 21:10 Objective Data Lab / Micro Data Result Diagrams: 04/21/21 07:40 04/22/21 08:40 Charges/Coding Addendum Addendum: Patient was seen and examined independently of Zulay Villatoro today, I received word from nephrology that they would be dialyzing the patient starting today. Nephrology also states that the patient can be discharged tomorrow after dialysis and he will have follow-up dialysis on Sunday. On examination he appeared in good health and spirits. Vital signs as documented. Skin warm and dry and without overt rashes. Neck without JVD, neck was supple, trachea midline, thyroid was normal. Lungs clear bilaterally, normal air movement was noted. Heart exam notable for regular rhythm, normal sounds and absence of murmurs, rubs or gallops. Abdomen unremarkable and without evidence of organomegaly, masses, or abdominal aortic enlargement. Bowel sounds are present, abdomen is not distended. Extremities nonedematous, no cyanosis was noted, no clubbing was noted. Neuro: Cranial nerves II through XII are grossly intact, no focal motor deficits were noted, sensation to light touch and pinprick intact, motor exam 5/5 throughout. Psych: Patient is alert and oriented x3, he does not appear anxious or depressed, he does not appear agitated. Patient appears comfortable at rest 3 L of oxygen, patient may need home O2 at the time of discharge, however, patient will have dialysis today and tomorrow and this may remove enough fluid so the patient does not have to go home on oxygen. I have reviewed Zulay Villatoro's progress note including her medical assessment and plan of care and endorse it. Visit Charges Inpatient E&M: 91659 Subs Hosp L2
--- NOTE | 2021-04-22 14:58 | NURSING ---
Read and reviewed SN documentation.
[2021-04-22 18:11] LABS: Bedside Glucose 113 mg/dL (70-110)
[2021-04-22] MEDS: oxyCODONE 5 MG Tablet PO (18:22)
--- NOTE | 2021-04-22 19:59 | DIALYSIS ---
Hemodialysis x 2hrs today. Ran pt even no fluid removed. Pt stable Report to Susi Arguello Hepatitis Labs drawn and sent
[2021-04-22] MEDS: Ondansetron ODT 4 MG Tablet PO (20:19)
[2021-04-22] MEDS: Folic Acid/Vitamin B Comp W-C 1 Capsule 1 CAP PO (20:24)
[2021-04-22] MEDS: Atorvastatin Calcium 80 MG Tablet PO (20:59)
[2021-04-22] MEDS: Insulin Lispro 100 UNIT/ML INSULN.PEN SC (20:59)
[2021-04-22 21:55] LABS: Bedside Glucose 159 mg/dL (70-110)
[2021-04-23] VITALS (16 sets, daily range): BP systolic 119–145; BP diastolic 52–68; PULSE 67–80; RESP 18–22; TEMP 36.7–37.2; O2SAT 92–96
[2021-04-23] MEDS: Isosorbide DN 10 MG Tablet PO ×3 (06:31→23:16)
[2021-04-23] MEDS: Heparin Injection (Vial) 5,000 UNIT/ML VIAL 5000 UNIT SC ×3 (06:31→20:14)
[2021-04-23] MEDS: hydrALAZINE 50 MG Tablet 100 MG PO (06:31)
[2021-04-23 07:00] LABS: Bedside Glucose 91 mg/dL (70-110)
[2021-04-23 07:17] LABS: Absolute Lymphocyte Count 0.54 X10^3/uL (0.83-4.51); Absolute Neutrophil Count 3.9 X10^3/uL (2.0-7.7); Basophil# 0.04 X10^3/uL; Basophil% 0.7 % (0-1); Eosinophil# 0.32 X10^3/uL; Eosinophils% 5.5 % (0-5); Hematocrit 26.3 % (40-54); Lymphocyte # 0.54 X10^3/ul (0.83-4.51); Lymphocyte % 9.3 % (19-41); Mean Corp Hgb Conc 30.4 g/dL (32-36); Mean Corpuscular Hgb 27.3 pg (27.0-32.0); Mean Corpuscular Volume 89.8 fL (80-94); Mean Platelet Vol. 10.6 fl (6.2-12.0); Monocyte# 0.97 X10^3/uL; Monocyte% 16.6 % (0-10); NRBC Flagged by Analyzer 0 % (0-5); Neutrophil # 3.94 X10^3/uL (2.7-7.7); Neutrophil % 67.6 % (47-70); POSITIVE DIFFERENTIAL YES; Platelet Count 141 K/mm3 (150-450); RBC Distribution Width CV 14.6 % (11.6-14.6); RBC Distribution Width SD 47.3 fl (35.1-43.9); Red Blood Count 2.93 M/mm3 (4.6-6.2); White Blood Count 5.8 K/mm3 (4.4-11.0)
[2021-04-23 07:36] LABS: Albumin, Serum 2.8 g/dL (3.2-5.0); BUN 64 mg/dL (7-18); BUN/Creat Ratio 11.3 RATIO (10-20); Calcium,Total 7.5 mg/dL (8.5-10.1); Chloride 107 mmol/L (98-107); Creatinine, Serum 5.65 mg/dL (0.70-1.30); Differential Indicated SCAN CRITERIA MET; EST Glomerular Filtration Rate 11 mL/min (>60); Est Glom Filt Rate - Afr Amer 13 mL/min (>60); Estimated Creatinine Clearance 13.03 ml/min; Glucose 94 mg/dL (74-106); Phosphorus 6.2 mg/dL (2.5-4.9); Potassium 5.5 mmol/L (3.5-5.1); Sodium Level 136 mmol/L (136-145)
[2021-04-23] MEDS: Aspirin E.C. 81 MG Tablet PO (08:08)
[2021-04-23] MEDS: Tamsulosin HCl 0.4 MG Capsule PO (08:08)
[2021-04-23] MEDS: Ranolazine 500 MG Tablet PO ×2 (08:09→23:16)
[2021-04-23] MEDS: guaiFENesin 1,200 MG Tablet 1200 MG PO ×2 (08:09→23:16)
[2021-04-23] MEDS: Cyanocobalamin 500 MCG Tablet 1000 MCG PO (08:11)
[2021-04-23] MEDS: Folic Acid/Vitamin B Comp W-C 1 Capsule 1 CAP PO (08:12)
[2021-04-23] MEDS: oxyCODONE 5 MG Tablet PO (08:25)
--- NOTE | 2021-04-23 10:18 | PCM.PN.BLA ---
Progress Note labs, vitals reviewed. Correct hyperkalemia with dialysis. Follow low K diet. Dialysis #2 today with AVF. Ok to dc to home if medically stable after dialysis. Adjust BP meds as needed. Follow up at dialysis center.
--- NOTE | 2021-04-23 11:40 | DIALYSIS ---
Hemodialysis completed, 3 hours on a 2 K bath. Fluid removed was 2 liters, patient tolerated well. Left upper arm fistula also performed well, no issues. See flowsheet for details, BP was stable throughout treatment
[2021-04-23 11:42] LABS: Hepatitis B Surface Antigen Non-Reactive (Nonreactive)
[2021-04-23 12:10] LABS: Bedside Glucose 101 mg/dL (70-110)
--- NOTE | 2021-04-23 12:20 | PN.HOSP_ITS ---
Documented by User: HEMAL Mata 04/23/21 12:26 Subjective Subjective Patient seen and examined. Patient currently laying in bed, getting dialysis. Discussed with patient his ongoing weakness along with initiation of dialysis. Patient states that he does not feel like he can return home at this time safely. Will discuss with case management need for SNF placement for PT and OT as well as dialysis. Objective Data Objective Data Vital Signs: Vital Signs Temp Pulse Resp BP Pulse Ox 98.1 F 75 20 H 123/61 H 96 04/23/21 11:50 04/23/21 11:50 04/23/21 11:50 04/23/21 11:50 04/23/21 08:42 Oxygen Flow Rate (L/min) 3 Oxygen Delivery Method Nasal Cannula Weight: 261 lb 7.492 oz Body Mass Index (BMI) 37.5 Intake & Output: Intake and Output for Last 24 Hours 04/21/21 04/22/21 04/23/21 23:59 23:59 23:59 Intake Total 890 / 890 660 / 660 120 / 120 Output Total 1600 / 1900 900 / 900 Balance -710 / -1010 -240 / -240 120 / 120 Lab / Micro Data Result Diagrams: 04/23/21 07:02 04/23/21 07:02 Labs: Laboratory Results - last 24 hr 04/22/21 16:35: POC Glucose 113 H 04/22/21 19:45: Hep Bs Antigen Cancelled 04/22/21 20:29: POC Glucose 159 H 04/23/21 06:33: POC Glucose 91 04/23/21 07:02: WBC 5.8, RBC 2.93 L, Hgb 8.0 L, Hct 26.3 L, MCV 89.8, MCH 27.3, MCHC 30.4 L, RDW Std Deviation 47.3 H, RDW Coeff of Lina 14.6, Plt Count 141 L, MPV 10.6, Immature Gran % (Auto) 0.300, Neut % (Auto) 67.6, Lymph % (Auto) 9.3 L , [facility] % (Auto) 16.6 H, Eos % (Auto) 5.5 H, Baso % (Auto) 0.7, Absolute Neuts (auto) 3.9, Absolute Lymphs (auto) 0.54 L, Nucleated RBC % 0 04/23/21 07:02: Sodium 136, Potassium 5.5 H, Chloride 107, Carbon Dioxide 22.0, Anion Gap Cancelled, BUN 64 H, Creatinine 5.65 H, Estim Creat Clear Calc 13.03, Est GFR (MDRD) Af Amer 13 L, Est GFR (MDRD) Non-Af 11 L, BUN/Creatinine Ratio 11.3, Glucose 94, Calcium 7.5 L, Phosphorus 6.2 H, Albumin 2.8 L 04/23/21 07:02: Hep Bs Antigen Non-Reactive 04/23/21 11:37: POC Glucose 101 Micro: Microbiology 04/20/21 19:11 Nasal Secretion SARS-CoV-2 Antigen (Rapid) - Final Physical Exam Const alert, oriented x3 and no apparent distress General Appearance: cooperative, well kempt and well developed Orientation / Consciousness: awake, oriented to person, oriented to place and oriented to time HEENT normocephalic, head/scalp atraumatic and moist oral mucous membranes Eyes PERRL, EOMs intact bilaterally, conjunctivae normal and no scleral icterus Neck full ROM, nuchal rigidity, supple, no JVD and thyroid normal General: trachea midline Resp normal respiratory effort, normal air movement and clear to auscultation b ilaterally Cardio regular rate, regular rhythm, S1 normal heart sound and S2 normal heart sound Cardio Narrative: Bruit and thrill present to fistula to left upper extremity GI normal to inspection, nondistended, normoactive bowel sounds, soft to palpation and non-tender Extremity normal to inspection and full ROM General Extremity: edema bilateral lower extremity Details: moderate Skin no rashes or lesions noted, no wounds and skin turgor normal General Skin Exam: no breakdown Neuro oriented x3, moves all extremities, no focal motor deficits and no sensory deficits noted Sensorium / Orientation: awake and alert Speech: speech normal Psych thought process normal and affect normal Assessment & Plan Assessment/Plan (1) Diabetes mellitus type 2, insulin dependent: (2) CKD stage 5 due to type 2 diabetes mellitus: PLAN: 1. CHF exacerbation -Continue IV Lasix -Patient currently on 3 L nasal cannula oxygen 2. CKD stage V -Per Dr. Sanford's following, patient received dialysis yesterday and is currently receiving dialysis today. -Daily BMP ordered -Patient has fistula to left upper arm -Continue ranolazine 3. Hyperkalemia -Potassium remains 5.5 today however patient is receiving another dialysis treatment today -BMP ordered daily 4. Diabetes mellitus type 2 -AC at bedtime blood sugars with sliding scale insulin ordered -Continue Lantus every morning Discharge planning-patient will need discharge to [facility] due to weakness and need for ongoing PT and OT as well as dialysis. DVT prophylaxis-subcu heparin This patient was seen by Catalina Villatoro NP-C under the supervision of Dr. Sanford. Documented by User: Dr. Tressa Sanford DO 04/23/21 16:27 Subjective Subjective This patient was seen in conjunction with Catalina Villatoro NP. The following is a representation my independent history and physical examination. Please see below for any addendum the above. Patient states that he is unable to walk and has significant weakness. He states that it has been present for approximately 1 month and he is not thinking he will be able to go home at discharge. He is currently on dialysis and per discussion with dialysis nurse he had significant difficulty with bed mobility degree position for dialysis. He is seems agreeable to go to SNF at discharge for rehab with the intent to transition home once he is stronger. He will need skilled facility with dialysis capabilities. Objective Data Lab / Micro Data Result Diagrams: 04/23/21 07:02 04/23/21 07:02 Physical Exam Const alert, oriented x3 and no apparent distress Constitutional Narrative: Obese white male lying in bed currently on hemodialysis, nontoxic, no acute distress, dialysis nurse at bedside Exam Limitations: no limitations Nutritional Appearance: obese HEENT head/scalp atraumatic and moist oral mucous membranes HEENT Narrative: No thrush Head and Scalp: normocephalic Resp normal respiratory effort, no retractions, no use of accessory muscles and clear to auscultation bilaterally Auscultation: Negative for crackles, rales, rhonchi or wheezes Cardio regular rate, regular rhythm, S1 normal heart sound, S2 normal heart sound, no murmurs, no rub, no gallops, no clicks and no JVD GI normal to inspection, nondistended, normoactive bowel sounds, soft to palpation, non-tender and non-distended Extremity no clubbing, cyanosis or edema Peripheral Pulses: Yes pulses 2+ throughout Neuro oriented x3, moves all extremities and no focal motor deficits Neuro Narrative: Marked generalized weakness Sensorium / Orientation: awake and alert Speech: speech normal Psych Psych Narrative: Affect is somewhat flat mood seems mildly depressed Assessment & Plan Assessment/Plan (1) Shortness of breath: (2) Debility: (3) Hyperkalemia: (4) Hyperkalemia: (5) Chronic anemia: PLAN: Assessment: Acute hypoxic respiratory failure secondary to decompensated diastolic heart failure and CKD Chronic diastolic heart failure CKD stage V Hyperkalemia DM-2 Debility CAD Hypertension BPH Remote history of DVT History of GERD Hyperlipidemia Obesity KATJA Depression History of tobacco abuse Plan: Wean oxygen as able -Patient completed second dialysis treatment today and tolerated well -Hemoglobin is stable -Repeat BMP in a.m. as potassium level should come down with second dialysis treatment -Patient with significant debility requiring max assist of 2 for ambulation per PT notes -Patient will require placement and therapy with continued dialysis at discharge -Was discussed with case management and after finding his site preop will be initiated if needed -Do not anticipate any discharge until Sunday at the earliest Charges/Coding Visit Charges Inpatient E&M: 51215 Subs Hosp L2
--- NOTE | 2021-04-23 13:55 | CASEMGMT ---
ALIREZA MAYER NOTE: Hep B Antigen antigen results faxed to [facility] at this time. Rosalinda MEDINA RN CM
[2021-04-23] MEDS: Carvedilol 12.5 MG Tablet PO ×2 (14:18→23:16)
[2021-04-23 17:06] LABS: Bedside Glucose 105 mg/dL (70-110)
[2021-04-23] MEDS: Ondansetron ODT 4 MG Tablet PO (20:09)
[2021-04-23 20:40] LABS: Bedside Glucose 159 mg/dL (70-110)
--- NOTE | 2021-04-23 21:19 | CASEMGMT ---
SOCIAL WORK Met with patient earlier today to discuss discharge planning as CM informed patient requires SNF. Patient reports in agreement with referral to [facility] for SNF. Referral faxed and voicemail left for admissions. SW to follow up Sunday. Plan: Referral to [facility] NEISHA Chen, JAVA ARCHITECT
[2021-04-23] MEDS: proCHLORPERazine 10 MG/2 ML Vial 5 MG IV (22:13)
[2021-04-23] MEDS: 0.9% Saline Lock 10 ML Syringe IV (22:14)
[2021-04-23] MEDS: hydrALAZINE 50 MG Tablet PO (23:16)
[2021-04-23] MEDS: Atorvastatin Calcium 80 MG Tablet PO (23:16)
[2021-04-24] VITALS (13 sets, daily range): BP systolic 131–152; BP diastolic 61–74; PULSE 69–79; RESP 16–18; TEMP 36.7–36.9; O2SAT 92–98
[2021-04-24] MEDS: Ondansetron ODT 4 MG Tablet PO (04:21)
[2021-04-24] MEDS: Isosorbide DN 10 MG Tablet PO ×3 (06:31→21:39)
[2021-04-24] MEDS: Heparin Injection (Vial) 5,000 UNIT/ML VIAL 5000 UNIT SC (06:31)
[2021-04-24 06:45] LABS: Absolute Lymphocyte Count 0.51 X10^3/uL (0.83-4.51); Absolute Neutrophil Count 4.3 X10^3/uL (2.0-7.7); Basophil# 0.05 X10^3/uL; Basophil% 0.8 % (0-1); Eosinophils% 4.9 % (0-5); Hematocrit 25.5 % (40-54); Hemoglobin 7.6 g/dL (13.0-16.5); Lymphocyte # 0.51 X10^3/ul (0.83-4.51); Lymphocyte % 8.4 % (19-41); Mean Corp Hgb Conc 29.8 g/dL (32-36); Mean Corpuscular Hgb 26.9 pg (27.0-32.0); Mean Corpuscular Volume 90.1 fL (80-94); Mean Platelet Vol. 11.5 fl (6.2-12.0); Monocyte# 0.91 X10^3/uL; NRBC Flagged by Analyzer 0 % (0-5); Neutrophil % 70.7 % (47-70); POSITIVE DIFFERENTIAL YES; Platelet Count 113 K/mm3 (150-450); RBC Distribution Width CV 14.5 % (11.6-14.6); RBC Distribution Width SD 47.3 fl (35.1-43.9); Red Blood Count 2.83 M/mm3 (4.6-6.2); White Blood Count 6.1 K/mm3 (4.4-11.0)
[2021-04-24 06:46] LABS: Differential Indicated SCAN CRITERIA MET
[2021-04-24 06:46] LABS: Bedside Glucose 108 mg/dL (70-110)
[2021-04-24 07:11] LABS: Anion Gap 8 (5-15); BUN 45 mg/dL (7-18); BUN/Creat Ratio 9.4 RATIO (10-20); Calcium,Total 7.5 mg/dL (8.5-10.1); Chloride 103 mmol/L (98-107); Creatinine, Serum 4.78 mg/dL (0.70-1.30); EST Glomerular Filtration Rate 13 mL/min (>60); Est Glom Filt Rate - Afr Amer 16 mL/min (>60); Estimated Creatinine Clearance 15.41 ml/min; Glucose 106 mg/dL (74-106); Potassium 5.1 mmol/L (3.5-5.1); Sodium Level 136 mmol/L (136-145)
[2021-04-24] MEDS: hydrALAZINE 50 MG Tablet PO ×2 (08:17→21:37)
[2021-04-24] MEDS: Carvedilol 12.5 MG Tablet PO ×2 (08:17→21:38)
[2021-04-24] MEDS: Aspirin E.C. 81 MG Tablet PO (08:18)
[2021-04-24] MEDS: guaiFENesin 1,200 MG Tablet 1200 MG PO ×2 (08:18→21:40)
[2021-04-24] MEDS: Tamsulosin HCl 0.4 MG Capsule PO (08:18)
[2021-04-24] MEDS: Ranolazine 500 MG Tablet PO ×2 (08:18→21:40)
[2021-04-24] MEDS: Cyanocobalamin 500 MCG Tablet 1000 MCG PO (08:19)
[2021-04-24] MEDS: Folic Acid/Vitamin B Comp W-C 1 Capsule 1 CAP PO (08:19)
[2021-04-24 08:26] LABS: Differential Comment SCANNED
[2021-04-24] MEDS: oxyCODONE 5 MG Tablet PO (08:32)
--- NOTE | 2021-04-24 09:37 | PCM.PN.HOSP ---
Documented by User: Catalina Villatoro NP-C 04/24/21 09:46 Subjective Subjective Patient seen and examined. Patient sitting in bed eating breakfast. Patient states that he is feeling fatigued but otherwise has no complaints. Discussed with patient continued wait for precertification for patient go to jail facility. Patient verbalized understanding. Objective Data Objective Data Vital Signs: Vital Signs Temp Pulse Resp BP Pulse Ox 98.4 F 72 18 131/61 H 98 04/24/21 08:13 04/24/21 08:17 04/24/21 08:13 04/24/21 08:17 04/24/21 08:13 Oxygen Flow Rate (L/min) 3 Oxygen Delivery Method Nasal Cannula Weight: 261 lb 0.437 oz Body Mass Index (BMI) 37.5 Intake & Output: Intake and Output for Last 24 Hours 04/22/21 04/23/21 04/24/21 23:59 23:59 23:59 Intake Total 660 / 660 360 / 360 480 / 480 Output Total 900 / 900 Balance -240 / -240 360 / 360 480 / 480 Lab / Micro Data Result Diagrams: 04/24/21 06:22 04/24/21 06:22 Labs: Laboratory Results - last 24 hr 04/22/21 19:45: Hep Bs Antigen Cancelled 04/23/21 07:02: Hep Bs Antigen Non-Reactive 04/23/21 11:37: POC Glucose 101 04/23/21 16:54: POC Glucose 105 04/23/21 20:12: POC Glucose 159 H 04/24/21 06:22: WBC 6.1, RBC 2.83 L, Hgb 7.6 L, Hct 25.5 L, MCV 90.1, MCH 26.9 L, MCHC 29.8 L, RDW Std Deviation 47.3 H, RDW Coeff of Lina 14.5, Plt Count 113 L, MPV 11.5, Immature Gran % (Auto) 0.200, Neut % (Auto) 70.7 H, Lymph % (Auto) 8.4 L, [place] % (Auto) 15.0 H, Eos % (Auto) 4.9, Baso % (Auto) 0.8, Absolute Neuts (auto) 4.3, Absolute Lymphs (auto) 0.51 L, Nucleated RBC % 0, Differential Comment SCANNED 04/24/21 06:22: Sodium 136, Potassium 5.1, Chloride 103, Carbon Dioxide 25.0, Anion Gap 8, BUN 45 H, Creatinine 4.78 H, Estim Creat Clear Calc 15.41, Est GFR (MDRD) Af Amer 16 L, Est GFR (MDRD) Non-Af 13 L, BUN/Creatinine Ratio 9.4 L, Glucose 106, Calcium 7.5 L 04/24/21 06:29: POC Glucose 108 Micro: Microbiology 04/20/21 19:11 Nasal Secretion SARS-CoV-2 Antigen (Rapid) - Final Physical Exam Const alert, oriented x3 and no apparent distress General Appearance: cooperative, well kempt and well developed Orientation / Consciousness: awake Exam Limitations: no limitations Nutritional Appearance: obese HEENT normocephalic, head/scalp atraumatic and moist oral mucous membranes Eyes conjunctivae normal and no scleral icterus Neck full ROM and supple General: trachea midline Resp normal respiratory effort, normal air movement and clear to auscultation bilaterally Cardio regular rate, regular rhythm, S1 normal heart sound and S2 normal heart sound Cardio Narrative: Bruit and thrill present to fistula to left upper extremity GI normal to inspection, nondistended, normoactive bowel sounds, soft to palpation and non-tender Extremity normal to inspection and full ROM General Extremity: edema bilateral lower extremity Details: moderate Skin no rashes or lesions noted, no wounds and skin turgor normal General Skin Exam: no breakdown Neuro oriented x3, moves all extremities, no focal motor deficits and no sensory deficits noted Sensorium / Orientation: awake and alert Speech: speech normal Motor Exam: general weakness Psych thought process normal and affect normal Assessment & Plan Assessment/Plan (1) Chronic anemia: (2) Debility: (3) CKD stage 5 due to type 2 diabetes mellitus: PLAN: 1. CHF exacerbation -Continue IV Lasix -Patient currently on 3 L nasal cannula oxygen 2. CKD stage V -Patient received dialysis on 04/22/2021 as well as 04/23/2021. Per Dr. Sanford's note from 04/23/2021 patient will not be scheduled for dialysis treatment today. Will notify Dr. Sanford of patient's discharge plans to [facility] for coordination for outpatient dialysis from there. -Daily BMP ordered -Patient has fistula to left upper arm -Continue ranolazine 3. Hyperkalemia -Potassium 5.1 -BMP ordered daily 4. Diabetes mellitus type 2 -AC at bedtime blood sugars with sliding scale insulin ordered -Continue Lantus every morning 5. Acute on chronic anemia -Patient's hemoglobin down to 7.6 today from 9.4 on admission. Will recheck hemoglobin hematocrit this afternoon -Plan to transfuse if hemoglobin less than 7. 6. Thrombocytopenia -Subcu heparin DC'd -CBC daily Discharge planning-patient will need discharge to jail facility due to weakness and need for ongoing PT and OT as well as dialysis. DVT prophylaxis-SCDs, pharmacological prophylaxis DC'd due to decreased hemoglobin as well as platelet count This patient was seen by Catalina Villatoro NP-C under the supervision of Dr. Sanford. Documented by User: Dr. Tressa Sanford DO 04/24/21 10:29 Subjective Subjective This patient was seen with Catalina Villatoro NP. The following is representation my independent history and exam. Please see below for addendum the above. Patient reports that he is feeling better today. He states that he has a little bit more energy. Slow drop in hemoglobin but patient denies any obvious source of bleeding. Does admit that stools are somewhat dark but states that he also had a negative guaiac 2 weeks ago. Objective Data Lab / Micro Data Result Diagrams: 04/24/21 06:22 04/24/21 06:22 Physical Exam Const alert, oriented x3 and no apparent distress Constitutional Narrative: Obese white male lying in bed watching television, nontoxic, no acute distress, appears comfortable General Appearance: cooperative, well kempt and well developed Orientation / Consciousness: awake Exam Limitations: no limitations Nutritional Appearance: obese HEENT normocephalic, head/scalp atraumatic and moist oral mucous membranes Head and Scalp: normocephalic Eyes no scleral icterus Neck full ROM General: trachea midline Resp normal respiratory effort, normal air movement, no retractions, no use of accessory muscles and clear to auscultation bilaterally Resp Narrative: Diminished bilaterally at bases Auscultation: Negative for crackles, rales, rhonchi or wheezes Cardio regular rate, regular rhythm, S1 normal heart sound, S2 normal heart sound, no murmurs, no rub, no gallops, no clicks and no JVD Cardio Narrative: Bruit and thrill present to fistula to left upper extremity GI normal to inspection, nondistended, normoactive bowel sounds, soft to palpation, non-tender and non-distended Extremity normal to inspection and full ROM Extremity Narrative: Lower extremity edema is still present however improving, no cyanosis or clubbing, legs are much softer General Extremity: edema bilateral lower extremity Details: moderate Skin General Skin Exam: no breakdown Neuro oriented x3, moves all extremities and no focal motor deficits Neuro Narrative: Marked generalized weakness Sensorium / Orientation: awake and alert Speech: speech normal Motor Exam: general weakness Psych thought process normal Assessment & Plan Assessment/Plan (1) Chronic anemia: (2) Debility: (3) Shortness of breath: (4) Hyperkalemia: (5) Acute anemia: PLAN: Assessment: Acute hypoxic respiratory failure secondary to decompensated diastolic heart failure and CKD Chronic diastolic heart failure CKD stage V Hyperkalemia Thrombocytopenia Acute on chronic anemia DM-2 Debility CAD Hypertension BPH Remote history of DVT History of GERD Hyperlipidemia Obesity KATJA Depression History of tobacco abuse Plan: -Wean oxygen as able -Dialysis per nephrology -Hemoglobin with slight trend down -Repeat H&H at noon -Check Hemoccult stool--> per patient he had one 2 weeks ago and was negative -Transfuse for hemoglobin less than 7 -No signs of acute bleeding -Trend down and platelets -Will discontinue heparin products -Check HIT antibody -SCDs for DVT prophylaxis -Hyperkalemia has resolved -Patient with significant debility requiring max assist of 2 for ambulation per PT notes -Patient will require placement and therapy with continued dialysis at discharge -We will discuss further with case management tomorrow -Do not anticipate any discharge until Sunday at the earliest Charges/Coding Visit Charges Inpatient E&M: 22158 Subs Hosp L2
[2021-04-24] MEDS: Insulin Lispro 100 UNIT/ML INSULN.PEN SC ×2 (11:26→21:46)
[2021-04-24 12:01] LABS: Bedside Glucose 161 mg/dL (70-110)
[2021-04-24 12:56] LABS: Hematocrit 26.5 % (40-54); Hemoglobin 7.9 g/dL (13.0-16.5)
[2021-04-24] MEDS: Calcium Acetate 667 MG Capsule PO (16:40)
[2021-04-24 17:35] LABS: Bedside Glucose 130 mg/dL (70-110)
[2021-04-24] MEDS: Atorvastatin Calcium 80 MG Tablet PO (21:39)
[2021-04-24 21:55] LABS: Bedside Glucose 151 mg/dL (70-110)
[2021-04-25] VITALS (15 sets, daily range): BP systolic 129–161; BP diastolic 57–74; PULSE 72–80; RESP 15–20; TEMP 36.8–37.1; O2SAT 88–96
[2021-04-25] MEDS: Isosorbide DN 10 MG Tablet PO ×3 (06:12→20:31)
[2021-04-25] MEDS: oxyCODONE 5 MG Tablet PO ×3 (06:18→18:51)
[2021-04-25 06:25] LABS: Absolute Neutrophil Count 4.2 X10^3/uL (2.0-7.7); Basophil# 0.05 X10^3/uL; Basophil% 0.8 % (0-1); Eosinophil# 0.32 X10^3/uL; Eosinophils% 5.3 % (0-5); Hematocrit 26.3 % (40-54); Hemoglobin 7.8 g/dL (13.0-16.5); Lymphocyte % 8.2 % (19-41); Mean Corp Hgb Conc 29.7 g/dL (32-36); Mean Corpuscular Hgb 26.7 pg (27.0-32.0); Mean Corpuscular Volume 90.1 fL (80-94); Mean Platelet Vol. 11.6 fl (6.2-12.0); Monocyte# 0.95 X10^3/uL; Monocyte% 15.7 % (0-10); NRBC Flagged by Analyzer 0 % (0-5); Neutrophil # 4.23 X10^3/uL (2.7-7.7); Neutrophil % 69.7 % (47-70); POSITIVE DIFFERENTIAL YES; Platelet Count 113 K/mm3 (150-450); RBC Distribution Width CV 14.1 % (11.6-14.6); Red Blood Count 2.92 M/mm3 (4.6-6.2); White Blood Count 6.1 K/mm3 (4.4-11.0)
[2021-04-25 06:43] LABS: Differential Indicated SCAN CRITERIA MET
[2021-04-25 07:00] LABS: Bedside Glucose 98 mg/dL (70-110)
[2021-04-25 07:08] LABS: Platelet Estimate SLT DEC (ADEQ)
[2021-04-25 07:13] LABS: Anion Gap 7 (5-15); BUN 54 mg/dL (7-18); BUN/Creat Ratio 10.1 RATIO (10-20); Calcium,Total 7.8 mg/dL (8.5-10.1); Chloride 103 mmol/L (98-107); Creatinine, Serum 5.37 mg/dL (0.70-1.30); EST Glomerular Filtration Rate 11 mL/min (>60); Est Glom Filt Rate - Afr Amer 14 mL/min (>60); Estimated Creatinine Clearance 13.71 ml/min; Glucose 101 mg/dL (74-106); Iron 22 ug/dL (65-175); Iron Binding Capacity,Total 222 ug/dL (250-450); PERCENT IRON SATURATION 9.9 % (15.0-55.0); Potassium 5.4 mmol/L (3.5-5.1); Sodium Level 137 mmol/L (136-145)
[2021-04-25] MEDS: Calcium Acetate 667 MG Capsule PO ×3 (08:48→18:06)
[2021-04-25] MEDS: guaiFENesin 1,200 MG Tablet 1200 MG PO ×2 (08:57→20:32)
[2021-04-25] MEDS: Carvedilol 12.5 MG Tablet PO ×2 (08:57→20:31)
[2021-04-25] MEDS: Tamsulosin HCl 0.4 MG Capsule PO (08:58)
[2021-04-25] MEDS: hydrALAZINE 50 MG Tablet PO ×2 (08:58→20:32)
[2021-04-25] MEDS: Folic Acid/Vitamin B Comp W-C 1 Capsule 1 CAP PO (08:59)
[2021-04-25] MEDS: Ranolazine 500 MG Tablet PO ×2 (08:59→20:32)
[2021-04-25] MEDS: Cyanocobalamin 500 MCG Tablet 1000 MCG PO (08:59)
[2021-04-25] MEDS: Aspirin E.C. 81 MG Tablet PO (08:59)
--- NOTE | 2021-04-25 09:24 | CASEMGMT ---
DANITZA faxed referral to [facility]. DANITZA also called [facility] and left a voice mail with referral. Await response. Sasha Olivas BOWLING [employer]LEY OPERATOR TANI
--- NOTE | 2021-04-25 09:33 | CASEMGMT ---
Call to Herb at [facility] and he states that pt will have to keep OP HD at [facility] until he can be set up for treatments at [facility]. Caitlyn BOSCH aware, voices understanding. Scott LAY CM
--- NOTE | 2021-04-25 10:10 | CASEMGMT ---
SW received a call from [facility]. They can take patient and she sent everything in for pre-cert, but she needs updated PT/OT. DANITZA told her SW will fax them once in the computer. Plan: d/c to [facility] pending insurance approval. Sasha FREIRE
--- NOTE | 2021-04-25 10:40 | CASEMGMT ---
SW faxed PT note to [facility]. Sasha Olivas DIRECTOR REHABILITATION PROGRAM [employer]
--- NOTE | 2021-04-25 10:46 | PCM.PN.HOSP ---
Documented by User: HEMAL Mata 04/25/21 10:53 Subjective Subjective Patient seen and examined. Patient states that he is feeling fatigued but otherwise is feeling okay. Patient sitting in bed no distress noted. Informed patient that he will be receiving dialysis today after conversation with Dr. Sanford and he was agreeable. Objective Data Objective Data Vital Signs: Vital Signs Temp Pulse Resp BP Pulse Ox 98.3 F 73 18 134/69 H 88 04/25/21 10:16 04/25/21 10:16 04/25/21 10:16 04/25/21 10:16 04/25/21 08:57 Oxygen Flow Rate (L/min) 2 Oxygen Delivery Method Nasal Cannula Weight: 269 lb 2.951 oz Body Mass Index (BMI) 37.5 Intake & Output: Intake and Output for Last 24 Hours 04/23/21 04/24/21 04/25/21 23:59 23:59 23:59 Intake Total 360 / 360 720 / 720 Output Total 1200 / 1550 600 / 600 Balance 360 / 360 -480 / -830 -600 / -600 Lab / Micro Data Result Diagrams: 04/25/21 05:35 04/25/21 05:35 Labs: Laboratory Results - last 24 hr 04/24/21 11:25: POC Glucose 161 H 04/24/21 12:41: Hgb 7.9 L, Hct 26.5 L 04/24/21 16:34: POC Glucose 130 H 04/24/21 21:45: POC Glucose 151 H 04/25/21 05:35: WBC 6.1, RBC 2.92 L, Hgb 7.8 L, Hct 26.3 L, MCV 90.1, MCH 26.7 L, MCHC 29.7 L, RDW Std Deviation 46.0 H, RDW Coeff of Lina 14.1, Plt Count 113 L, MPV 11.6, Immature Gran % (Auto) 0.300, Neut % (Auto) 69.7, Lymph % (Auto) 8.2 L, [place] % (Auto) 15.7 H, Eos % (Auto) 5.3 H, Baso % (Auto) 0.8, Absolute Neuts (auto) 4.2, Absolute Lymphs (auto) 0.50 L, Nucleated RBC % 0, Platelet Estimate SLT 04/25/21 05:35: Sodium 137, Potassium 5.4 H, Chloride 103, Carbon Dioxide 27.0, Anion Gap 7, BUN 54 H, Creatinine 5.37 H, Estim Creat Clear Calc 13.71, Est GFR (MDRD) Af Amer 14 L, Est GFR (MDRD) Non-Af 11 L, BUN/Creatinine Ratio 10.1, Glucose 101, Calcium 7.8 L, Iron 22 L, TIBC 222 L, Iron Saturation 9.9 L 04/25/21 06:35: POC Glucose 98 04/25/21 08:50: Blood Type O POSITIVE, Antibody Screen NEGATIVE, Crossmatch See Detail Micro: Microbiology 04/20/21 19:11 Nasal Secretion SARS-CoV-2 Antigen (Rapid) - Final Physical Exam Const alert, oriented x3 and no apparent distress General Appearance: cooperative, well kempt and well developed Orientation / Consciousness: awake Exam Limitations: no limitations Nutritional Appearance: obese HEENT normocephalic, head/scalp atraumatic and moist oral mucous membranes Eyes conjunctivae normal and no scleral icterus Neck full ROM and supple General: trachea midline Resp normal respiratory effort, normal air movement and clear to auscultation bilaterally Auscultation: diminished lung sounds bilateral lower Cardio regular rate, regular rhythm, S1 normal heart sound and S2 normal heart sound Cardio Narrative: Bruit and thrill present to fistula to left upper extremity GI normal to inspection, nondistended, normoactive bowel sounds Extremity normal to inspection and full ROM General Extremity: edema bilateral lower extremity Details: moderate Skin no rashes or lesions noted, no wounds and skin turgor normal General Skin Exam: no breakdown Neuro oriented x3, moves all extremities and no focal motor deficits Neuro Narrative: Marked generalized weakness Sensorium / Orientation: awake and alert Speech: speech normal Motor Exam: general weakness Psych thought process normal and affect normal Assessment & Plan Assessment/Plan (1) Chronic anemia: (2) Debility: (3) Dialysis patient: PLAN: 1. CHF exacerbation -Continue IV Lasix -Patient currently on L nasal cannula oxygen 2. CKD stage V -Patient will receive dialysis today due to increased potassium 5.4 as well as increase in BUN and creatinine. -Daily BMP ordered -Patient has fistula to left upper arm -Continue ranolazine 3. Hyperkalemia -Potassium 5.5, will receive dialysis today -BMP ordered daily 4. Diabetes mellitus type 2 -AC at bedtime blood sugars with sliding scale insulin ordered -Continue Lantus every morning -Well-controlled on current regimen 5. Acute on chronic anemia -Patient's hemoglobin down to 7.8. -At the request of nephrology patient will be transfused with 1 unit packed red blood cells. 6. Thrombocytopenia -Subcu heparin DC'd -CBC daily Discharge planning-patient will need discharge to halfway facility due to weakness and need for ongoing PT and OT as well as dialysis. Pre-CERT started 04/25/2021 DVT prophylaxis-SCDs, pharmacological prophylaxis DC'd due to decreased hemoglobin as well as platelet count This patient was seen by MIL MataC under the supervision of Dr. Sanford Documented by User: Dr. Tressa Sanford DO 04/25/21 14:04 Subjective Subjective This patient was seen in conjunction with Catalina Villatoro NP. The following represents my independent history of his examination. Please see below for addendum the above. Patient reports that he is feeling okay this morning. Indicates he is not quite as fatigued today. Did not participate with therapy yesterday but did participate this morning prior to dialysis. Currently awaiting placement. Objective Data Lab / Micro Data Result Diagrams: 04/25/21 05:35 04/25/21 05:35 Physical Exam Const alert, oriented x3 and no apparent distress Constitutional Narrative: Obese white male lying in bed dialysis nurses at the bedside, nontoxic, no acute distress, appears comfortable General Appearance: cooperative, well kempt and well developed Orientation / Consciousness: awake Exam Limitations: no limitations Nutritional Appearance: obese HEENT normocephalic, head/scalp atraumatic and moist oral mucous membranes Head and Scalp: normocephalic Eyes no scleral icterus Neck full ROM General: trachea midline Resp normal respiratory effort, normal air movement, no retractions, no use of accessory muscles and clear to auscultation bilaterally Resp Narrative: Diminished bilaterally at bases Auscultation: diminished lung sounds bilateral lower; Negative for crackles, rales, rhonchi or wheezes Cardio regular rate, regular rhythm, S1 normal heart sound, S2 normal heart sound, no murmurs, no rub, no gallops, no clicks and no JVD Cardio Narrative: Bruit and thrill present to fistula to left upper extremity GI normal to inspection, nondistended, normoactive bowel sounds, soft to palpation, non-tender and non-distended Extremity normal to inspection and full ROM Extremity Narrative: Lower extremity edema is still present however improving, no cyanosis or clubbing General Extremity: edema bilateral lower extremity Details: moderate Peripheral Pulses: Yes pulses 2+ throughout Skin General Skin Exam: no breakdown Neuro oriented x3, moves all extremities and no focal motor deficits Neuro Narrative: Marked generalized weakness Sensorium / Orientation: awake and alert Speech: speech normal Motor Exam: general weakness Psych thought process normal Assessment & Plan Assessment/Plan (1) Chronic anemia: (2) Debility: (3) ESRD (end stage renal disease) on dialysis: PLAN: Assessment: Acute hypoxic respiratory failure secondary to decompensated diastolic heart failure and CKD Chronic diastolic heart failure CKD stage V Hyperkalemia Thrombocytopenia Acute on chronic anemia DM-2 Debility CAD Hypertension BPH Remote history of DVT History of GERD Hyperlipidemia Obesity KATJA Depression History of tobacco abuse Plan: -Wean oxygen as able -Dialysis per nephrology -Hemoglobin with slight trend down -Hemoglobin and hematocrit have stabilized -Check Hemoccult stool--> per patient he had one 2 weeks ago and was negative--> still pending -Transfuse for hemoglobin less than 7 -No signs of acute bleeding -Platelets have stabilized -Continue to hold heparin products -HIT antibody is pending -SCDs for DVT prophylaxis -Hyperkalemia fluctuates with dialysis days--> relatively stable -Precertification is in process for discharge to [facility]--> discharged once insurance approval is obtained Charges/Coding Visit Charges Inpatient E&M: 82951 Subs Hosp L2
--- NOTE | 2021-04-25 12:25 | PN.RENAL_ITS ---
Subjective Subjective seen on dialysis, proceeding without incident. Set for 2L fluid removal. Hgb low at 7.9g prbc given with iv iron load on dialysis. Objective Data Objective Data Vital Signs: Vital Signs Temp Pulse Resp BP Pulse Ox 98.3 F 73 18 134/69 H 88 04/25/21 10:16 04/25/21 10:16 04/25/21 10:16 04/25/21 10:16 04/25/21 08:57 Oxygen Flow Rate (L/min) 2 Oxygen Delivery Method Nasal Cannula Weight: 122.1 kg Body Mass Index (BMI) 37.5 Intake & Output: Intake and Output for Last 24 Hours 04/23/21 04/24/21 04/25/21 23:59 23:59 23:59 Intake Total 360 / 360 720 / 720 0 / 0 Output Total 1200 / 1550 600 / 600 Balance 360 / 360 -480 / -830 -600 / -600 Lab / Micro Data Result Diagrams: 04/25/21 05:35 04/25/21 05:35 Labs: Laboratory Results - last 24 hr 04/24/21 12:41: Hgb 7.9 L, Hct 26.5 L 04/24/21 16:34: POC Glucose 130 H 04/24/21 21:45: POC Glucose 151 H 04/25/21 05:35: WBC 6.1, RBC 2.92 L, Hgb 7.8 L, Hct 26.3 L, MCV 90.1, MCH 26.7 L , MCHC 29.7 L, RDW Std Deviation 46.0 H, RDW Coeff of Lina 14.1, Plt Count 113 L, MPV 11.6, Immature Gran % (Auto) 0.300, Neut % (Auto) 69.7, Lymph % (Auto) 8.2 L , [place] % (Auto) 15.7 H, Eos % (Auto) 5.3 H, Baso % (Auto) 0.8, Absolute Neuts (auto) 4.2, Absolute Lymphs (auto) 0.50 L, Nucleated RBC % 0, Platelet Estimate SLT 04/25/21 05:35: Sodium 137, Potassium 5.4 H, Chloride 103, Carbon Dioxide 27.0, Anion Gap 7, BUN 54 H, Creatinine 5.37 H, Estim Creat Clear Calc 13.71, Est GFR (MDRD) Af Amer 14 L, Est GFR (MDRD) Non-Af 11 L, BUN/Creatinine Ratio 10.1, Glucose 101, Calcium 7.8 L, Iron 22 L, TIBC 222 L, Iron Saturation 9.9 L 04/25/21 06:35: POC Glucose 98 04/25/21 08:50: Blood Type O POSITIVE, Antibody Screen NEGATIVE, Crossmatch See Detail Micro: Microbiology 04/20/21 19:11 Nasal Secretion SARS-CoV-2 Antigen (Rapid) - Final Physical Exam Const alert and oriented x3 Resp clear to auscultation bilaterally Extremity Extremity Narrative: edema mild BLE General Extremity: AV fistula Assessment & Plan Assessment/Plan (1) ESRD (end stage renal disease) on dialysis: PLAN: dialysis today. Await [facility] where he would be on a NxStage slow dialysis 4 days a week MTWF. Dialysis next on Sunday. (2) Dyspnea on minimal exertion: PLAN: fluid removal on dialysis as tolerated (3) Essential (primary) hypertension: PLAN: stable BP (4) Iron deficiency anemia: PLAN: on iron, JOHAN, prbc 1u today. C (5) Diabetes mellitus type 2, insulin dependent: (6) CAD (coronary artery disease): (7) Nephrotic syndrome: PLAN: chronic leg edema due to nephrotic proteinuria (8) Hyperkalemia: PLAN: add renal diet (9) Metabolic acidosis: PLAN: due to CKD. resolved
--- NOTE | 2021-04-25 13:25 | DIALYSIS ---
Hemodialysis complete via left arm AV fistular with 2100ml fluid removed. 1unit PRBC given during treatment with no s/s adverse reaction noted. Stasis obtained after fistula needles removed. Pt tolerated treatment without difficulty.
--- NOTE | 2021-04-25 14:05 | CON.PCM.PA_ITS ---
Assessment & Plan Assessment/Plan (1) Debility: (2) Shortness of breath: (3) ESRD (end stage renal disease) on dialysis: (4) Depression: QUALIFIERS: Depression Type: major depressive disorder Major depression recurrence: recurrent Active/Remission status: currently active Major depression episode severity: mild Qualified Code(s): F33.0 - Major depressive disorder, recurrent, mild (5) Iron deficiency anemia: QUALIFIERS: Iron deficiency anemia type: chronic blood loss Qualified Code(s): D50.0 - Iron deficiency anemia secondary to blood loss (chronic) (6) CHF exacerbation: QUALIFIERS: Heart failure type: unspecified Qualified Code(s): I50.9 - Heart failure, unspecified PLAN: 65-year-old male with ESRD, new dialysis this admit, seen today for palliative consultation for supportive management when discharged home, debility, nausea, and depression. 1. Debility and weakness: Exacerbated by current illness, he is unable to return home so we will go to [facility] for SNF prior to returning home. Dialysis is causing significant fatigue. 2. Shortness of breath: Multifactorial, CHF exacerbation and fluid overload with failing kidneys. He was diuresed and they have been able to pull some fluid off during dialysis. No indication for opioids at this time for shortness of breath, treat underlying conditions. Defer management of fluid balance to nephrology/PCP. 3. ESRD/KIMBERLY/CHF exacerbation/depression/T2DM: Complicates overall care, management, recovery, and prognosis. Depression is exacerbated, he has not been on anything as far as medications for this. He is contemplated seeing a counselor. I did discuss with him that we do have a SHEET METAL MECHANIC/counselor within palliative care and would be happy to initiate visits. He would likely benefit from an antidepressant given his complex medical situations and worsening depression. Not suicidal. Thank you for the opportunity to participate in this patient's care, please do not hesitate to contact [facility] with any further questions or concerns. Palliative direct line is [phone]. We will follow up after discharge and will discuss palliative services further at that time. The patient is interested in services. Liaison will be in contact and we will have the nurse practitioner see him in the facility. His goals are care/main focus is to improve his quality of life as he feels that is significantly poor at this time. Palliative will be supportive management. Greater than 50% of F2F visit dedicated to education and counseling of palliative care services, medications, comorbid conditions and potential assistance with management, and plan of care moving forward. Start time: 1400 End time: 1438 HPI Consult Data Date of Consult: 04/25/21 HPI Narrative HPI Narrative: BRI HERNANDEZ, is a 65 M who presented to [facility] 04/20/2021 with progressive shortness of breath, chronic chest pain, and acute hypoxia over the course of about 1-2 months. Dialysis has not yet been initiated, however patient does have a newly placed fistula in the left upper extremity. Follows with Dr. Sanford, nephrology. Currently has home health through [facility]. He was admitted for further evaluation and management. Found to be in acute on chronic diastolic CHF. He was started on IV diuresis. Dialysis initiated during this hospitalization. The plan is to discharge the patient to an extended care facility where he would be on Nx stage slow dialysis 4 days a week (M,T,W,F). He is to have a VQ scan to rule out PE. Patient had pulmonary function tests in March 2021 that showed severe restrictive ventilatory defect with symmetric reduction in diffusing capacity with a significant response to bronchodilators. He is retired and lives with roommate in a one-story home. He has been independent with ADLs. Does not drive but roommate drives him to appointments or uses [employer] transportation service. Patient's son, Eber Hernandez is his HC POA. DME in the home include cane, grab bars, tub bench and wheelchair lift and to home (installed for his roommate). Patient reports he has 2 children but does not have much contact with them, their relationship is estranged. Patient reportedly depressed. He has never been to a counselor in the past. Referral has been made to direction home in their passport program due to patient possibly needing assistance. Patient states he has a very poor quality of life at this point. He wishes he could change things. States his diabetes has been under control and he has not had to take any insulin for several months. He is having some nausea postdialysis today. Zofran ordered. He denies any current numbness or tingling. He does have some lower chest pain, which is chronic in nature. It has not changed in characteristics. He denies any cough. Shortness of breath with minimal exertion, which has improved since admission. He does feel like his swelling has went down since he started dialysis. He still has 2-3+ pitting lower extremity edema. There are some scrapes and wounds on his legs. He thinks there is a chronic scab on his right foot. He does not think it is infected. Denies any dizziness or syncope. No falls. [facility] Medical History (HFpEF) heart failure with preserved ejection fraction Ambulates with cane Atherosclerotic heart disease of [place] coronary artery without angina pectoris Cardiology follow-up encounter Chronic cough Chronic kidney disease (CKD) CKD stage 4 due to type 2 diabetes mellitus Depression Diabetes DVT (deep venous thrombosis) DVT of lower extremity (deep venous thrombosis) (09/2018) Essential (primary) hypertension Former smoker Gastric reflux Hemodialysis access site with arteriovenous graft High cholesterol History of echocardiogram History of edema History of meniscal tear History of renal disease History of stress test Hyperlipidemia Hypertension Insulin dependent diabetes mellitus Iron deficiency anemia Obesity (BMI 30.0-34.9) Old inferior wall myocardial infarction Problem with dialysis access Shortness of breath Sleep apnea Tear of lateral meniscus of left knee Tear of medial meniscus of left knee TIA (transient ischemic attack) (09/19/18) Type 2 diabetes mellitus Vitreous hemorrhage, bilateral Home Medications nitroglycerin 0.4 mg SUBLINGUAL Q5M PRN 06/30/15 [History Last Taken 09/30/17 0.4 MG] insulin degludec 15 unit SQ DAILY 02/20/17 [History Last Taken 10/15/18 07:15] aspirin 81 mg PO DAILY #0 07/09/18 [Rx Last Taken 10/15/18 07:00] amlodipine 10 mg tablet 10 mg PO DAILY 02/10/20 [History Last Taken 01/21/21 07:45] cholecalciferol (vitamin D3) 1,250 mcg (50,000 unit) capsule 1,250 mcg PO DAILY 02/10/20 [History Last Taken 11/15/20] cyanocobalamin (vitamin B-12) 1,000 mcg capsule 1,000 mcg PO DAILY 02/10/20 [History Last Taken Unknown] guanfacine 1 mg tablet 1 mg PO DAILY 02/10/20 [History Last Taken Unknown] carvedilol [Coreg] 12.5 mg PO BID 11/20/20 [History Last Taken 01/21/21 07:45] furosemide [Lasix] 40 mg PO BID 02/27/21 [History Last Taken Unknown] hydralazine 100 mg PO TID 02/27/21 [History Last Taken Unknown] sodium bicarbonate 650 mg PO BID 02/27/21 [History Last Taken Unknown] atorvastatin 80 mg tablet 80 mg PO QHS #90 tab 03/25/21 [Rx Last Taken Unknown] ranolazine 500 mg tablet,extended release,12 hr 500 mg PO BID #60 tab 03/25/21 [Rx Last Taken Unknown] ondansetron 4 mg PO Q8H PRN PRN #10 tab 04/06/21 [Rx Last Taken Unknown] ferrous sulfate [FeroSul] 325 mg PO DAILY 04/20/21 [History Last Taken Unknown] tamsulosin 0.4 mg capsule 0.4 mg PO DAILY #30 cap 04/20/21 [Rx Last Taken Unknown] Allergy/AdvReac Type Severity Reaction Status Date / Time escitalopram [From Lexapro] Allergy Unknown Verified 04/20/21 17:14 sertraline [From Zoloft] Allergy Unknown Verified 04/20/21 17:14 lisinopril AdvReac Severe Cough Verified 04/20/21 17:14 Family History Father blood clot Sister CVA (cerebral vascular accident) Mother Diabetes Surgical History H/O abdominal surgery History of arteriovenostomy for renal dialysis (~01/2021) History of cardiac catheterization History of coronary artery stent placement (06/17/15) Hx of hernia repair Social History (Updated 04/25/21 @ 14:41 by Valerie Rivera NP-[facility]) household members: friend(s) number of children: 2 current occupational status: retired Smoking Status: Former smoker alcohol intake: current alcohol intake frequency: a few times a week Alcohol type: beer substance use type: does not use caffeine: Yes Type: coffee Number of servings: 3 what type of physical activity do you participate in: none seatbelt use: always do you feel safe at home: Yes additional social history: estranged from children ROS ROS Narrative Review of systems otherwise negative from a constitutional, HEENT, respiratory, cardiovascular, GI, genitourinary, musculoskeletal, skin, neurologic, psychiatric and hematologic system unless stated above. Physical Exam Const oriented x3 and no apparent distress Constitutional Narrative: Semi-lethargic but able to converse appropriately, falls asleep easily. General Appearance: cooperative HEENT normocephalic and head/scalp atraumatic Neck supple General: trachea midline Resp normal respiratory effort Effort and Inspection: able to speak in complete sentences and symmetric chest movement Auscultation: diminished lung sounds Cardio regular rate, regular rhythm, S1 normal heart sound and S2 normal heart sound GI soft to palpation and non-tender Inspection: abdominal distention Auscultation: normoactive bowel sounds Extremity General Extremity: edema bilateral lower extremity Details: moderate; Negative for clubbing or cyanosis Skin Skin Narrative: Various scabs on legs. No noted rashes or infected areas Neuro CN's II-XII intact bilaterally, moves all extremities and no focal motor deficits Psych denies hallucinations Attitude: engaged Mood & Affect: depressed Thought Process: normal thought process Thought Content: normal thought content Memory / Cognition: memory grossly intact
[2021-04-25] MEDS: Ondansetron ODT 4 MG Tablet PO (14:39)
--- NOTE | 2021-04-25 14:49 | CASEMGMT ---
SW faxed OT noted to [facility]. Sasha Olivas INBOUND SALES REPRESENTATIVE KEG RAISER
[2021-04-25 14:51] LABS: Bedside Glucose 128 mg/dL (70-110)
[2021-04-25 18:15] LABS: Bedside Glucose 133 mg/dL (70-110)
[2021-04-25] MEDS: Atorvastatin Calcium 80 MG Tablet PO (20:31)
--- NOTE | 2021-04-25 20:35 | NURSING ---
patient requesting medications early
[2021-04-25 21:21] LABS: Bedside Glucose 141 mg/dL (70-110)
[2021-04-26] VITALS (14 sets, daily range): BP systolic 130–182; BP diastolic 52–79; PULSE 66–83; RESP 12–18; TEMP 36.5–37; O2SAT 93–97
[2021-04-26] MEDS: Calcium Carbonate 500 MG Tablet PO (01:45)
[2021-04-26 06:27] LABS: Absolute Lymphocyte Count 0.39 X10^3/uL (0.83-4.51); Absolute Neutrophil Count 4.4 X10^3/uL (2.0-7.7); Basophil# 0.05 X10^3/uL; Basophil% 0.8 % (0-1); Eosinophil# 0.37 X10^3/uL; Eosinophils% 5.8 % (0-5); Hematocrit 28.9 % (40-54); Hemoglobin 8.7 g/dL (13.0-16.5); Lymphocyte # 0.39 X10^3/ul (0.83-4.51); Lymphocyte % 6.1 % (19-41); Mean Corp Hgb Conc 30.1 g/dL (32-36); Mean Corpuscular Hgb 26.9 pg (27.0-32.0); Mean Corpuscular Volume 89.5 fL (80-94); Mean Platelet Vol. 11.8 fl (6.2-12.0); Monocyte# 1.08 X10^3/uL; NRBC Flagged by Analyzer 0 % (0-5); Neutrophil # 4.43 X10^3/uL (2.7-7.7); Neutrophil % 69.8 % (47-70); POSITIVE DIFFERENTIAL YES; Platelet Count 132 K/mm3 (150-450); RBC Distribution Width CV 14.1 % (11.6-14.6); RBC Distribution Width SD 45.7 fl (35.1-43.9); Red Blood Count 3.23 M/mm3 (4.6-6.2); White Blood Count 6.4 K/mm3 (4.4-11.0)
[2021-04-26] MEDS: proCHLORPERazine 10 MG/2 ML Vial 5 MG IV (06:27)
[2021-04-26] MEDS: 0.9% Saline Lock 10 ML Syringe IV (06:27)
[2021-04-26 06:30] LABS: Bedside Glucose 140 mg/dL (70-110)
[2021-04-26 06:40] LABS: Differential Indicated SCAN CRITERIA MET
[2021-04-26 06:49] LABS: Anion Gap 8 (5-15); BUN 42 mg/dL (7-18); BUN/Creat Ratio 9.7 RATIO (10-20); Calcium,Total 7.6 mg/dL (8.5-10.1); Chloride 99 mmol/L (98-107); Creatinine, Serum 4.32 mg/dL (0.70-1.30); EST Glomerular Filtration Rate 15 mL/min (>60); Est Glom Filt Rate - Afr Amer 18 mL/min (>60); Estimated Creatinine Clearance 17.05 ml/min; Glucose 119 mg/dL (74-106); Potassium 4.7 mmol/L (3.5-5.1); Sodium Level 136 mmol/L (136-145)
[2021-04-26 06:55] LABS: Differential Comment SCANNED
[2021-04-26] MEDS: oxyCODONE 5 MG Tablet PO (09:03)
--- NOTE | 2021-04-26 09:17 | NURSING ---
pt complaint of anxiety during dialysis. Charge nurse paging MD for atlaura order.
[2021-04-26] MEDS: LORazepam 2 MG/ML Syringe 1 MG IV (09:50)
--- NOTE | 2021-04-26 10:16 | CASEMGMT ---
DANITZA received a voice mail from Cheryl Mckenna with [facility]. hCeryl said she is patient's caseworker intake with [facility] and would like a return call. DANITZA called her back. DANITZA told her the discharge plan is for patient to go to a alf. Cheryl said she will work on getting him set up with the waiver program. He was resistant in the past, but now that he is open to it she will get the process started. She asked that patient's discharge instructions be faxed to her. Cheryl Mckenna-P-[phone] and f-[phone]. DANITZA told her SW will do this at discharge. Sasha Olivas MSW TANI
[2021-04-26 12:00] LABS: Bedside Glucose 81 mg/dL (70-110)
--- NOTE | 2021-04-26 12:10 | PN.RENAL_ITS ---
Subjective Subjective seen on dialysis. Vitals stable. Complains of pain in buttocks and anxiety attack. Tolerating fluid removal. Objective Data Objective Data Vital Signs: Vital Signs Temp Pulse Resp BP Pulse Ox 97.7 F L 73 12 172/79 H 95 04/26/21 10:30 04/26/21 10:30 04/26/21 10:30 04/26/21 10:30 04/26/21 10:30 Oxygen Flow Rate (L/min) 2 Oxygen Delivery Method Nasal Cannula Weight: 120.1 kg Body Mass Index (BMI) 37.5 Intake & Output: Intake and Output for Last 24 Hours 04/24/21 04/25/21 04/26/21 23:59 23:59 23:59 Intake Total 720 / 720 1440 / 1440 Output Total 1200 / 1550 3350 / 3350 75 / 75 Balance -480 / -830 -1910 / -1910 -75 / -75 Lab / Micro Data Result Diagrams: 04/26/21 05:20 04/26/21 05:20 Labs: Laboratory Results - last 24 hr 04/25/21 08:50: Crossmatch See Detail 04/25/21 14:15: POC Glucose 128 H 04/25/21 18:03: POC Glucose 133 H 04/25/21 21:14: POC Glucose 141 H 04/26/21 05:20: WBC 6.4, RBC 3.23 L, Hgb 8.7 L, Hct 28.9 L, MCV 89.5, MCH 26.9 L , MCHC 30.1 L, RDW Std Deviation 45.7 H, RDW Coeff of Lina 14.1, Plt Count 132 L, MPV 11.8, Immature Gran % (Auto) 0.500, Neut % (Auto) 69.8, Lymph % (Auto) 6.1 L , Moore % (Auto) 17.0 H, Eos % (Auto) 5.8 H, Baso % (Auto) 0.8, Absolute Neuts (auto) 4.4, Absolute Lymphs (auto) 0.39 L, Nucleated RBC % 0, Differential Comment SCANNED 04/26/21 05:20: Sodium 136, Potassium 4.7, Chloride 99, Carbon Dioxide 29.0, A nion Gap 8, BUN 42 H, Creatinine 4.32 H, Estim Creat Clear Calc 17.05, Est GFR (MDRD) Af Amer 18 L, Est GFR (MDRD) Non-Af 15 L, BUN/Creatinine Ratio 9.7 L, Glucose 119 H, Calcium 7.6 L 04/26/21 06:22: POC Glucose 140 H 04/26/21 11:39: POC Glucose 81 Micro: Microbiology 04/20/21 19:11 Nasal Secretion SARS-CoV-2 Antigen (Rapid) - Final Physical Exam Const alert and oriented x3 Resp clear to auscultation bilaterally Extremity General Extremity: AV fistula and edema bilateral Assessment & Plan Assessment/Plan (1) ESRD (end stage renal disease) on dialysis: PLAN: dialysis today. Await [facility] where he will be on a NxStage slow dialysis 4 days a week MTWF. Dialysis next on . (2) Dyspnea on minimal exertion: PLAN: fluid removal on dialysis as tolerated (3) Essential (primary) hypertension: PLAN: stable BP (4) Iron deficiency anemia: QUALIFIERS: Iron deficiency anemia type: chronic blood loss Qualified Code(s): D50.0 - Iron deficiency anemia secondary to blood loss (chronic) PLAN: on iron, JOHAN, prbc 1u today. C (5) Diabetes mellitus type 2, insulin dependent: (6) CAD (coronary artery disease): (7) Nephrotic syndrome: PLAN: chronic leg edema due to nephrotic proteinuria (8) Hyperkalemia: PLAN: add renal diet (9) Metabolic acidosis: PLAN: due to CKD. resolved
--- NOTE | 2021-04-26 12:32 | DIALYSIS ---
HD today as ordered. uf -2900ml access LUAF 16g x 2 2k.
--- NOTE | 2021-04-26 12:42 | PCM.PN.HOSP ---
Subjective Subjective Patient seen and examined. Patient lying in bed undergoing dialysis, dialysis nurse at bedside. Objective Data Objective Data Vital Signs: Vital Signs Temp Pulse Resp BP Pulse Ox 97.7 F L 73 12 172/79 H 95 04/26/21 10:30 04/26/21 10:30 04/26/21 10:30 04/26/21 10:30 04/26/21 10:30 Oxygen Flow Rate (L/min) 2 Oxygen Delivery Method Nasal Cannula Weight: 264 lb 12.403 oz Body Mass Index (BMI) 37.5 Intake & Output: Intake and Output for Last 24 Hours 04/24/21 04/25/21 04/26/21 23:59 23:59 23:59 Intake Total 720 / 720 1440 / 1440 Output Total 1200 / 1550 3350 / 3350 75 / 75 Balance -480 / -830 -1910 / -1910 -75 / -75 Lab / Micro Data Result Diagrams: 04/26/21 05:20 04/26/21 05:20 Labs: Laboratory Results - last 24 hr 04/25/21 08:50: Crossmatch See Detail 04/25/21 14:15: POC Glucose 128 H 04/25/21 18:03: POC Glucose 133 H 04/25/21 21:14: POC Glucose 141 H 04/26/21 05:20: WBC 6.4, RBC 3.23 L, Hgb 8.7 L, Hct 28.9 L, MCV 89.5, MCH 26.9 L, MCHC 30.1 L, RDW Std Deviation 45.7 H, RDW Coeff of Lina 14.1, Plt Count 132 L, MPV 11.8, Immature Gran % (Auto) 0.500, Neut % (Auto) 69.8, Lymph % (Auto) 6.1 L, [place] % (Auto) 17.0 H, Eos % (Auto) 5.8 H, Baso % (Auto) 0.8, Absolute Neuts (auto) 4.4, Absolute Lymphs (auto) 0.39 L, Nucleated RBC % 0, Differential Comment SCANNED 04/26/21 05:20: Sodium 136, Potassium 4.7, Chloride 99, Carbon Dioxide 29.0, Anion Gap 8, BUN 42 H, Creatinine 4.32 H, Estim Creat Clear Calc 17.05, Est GFR (MDRD) Af Amer 18 L, Est GFR (MDRD) Non-Af 15 L, BUN/Creatinine Ratio 9.7 L, Glucose 119 H, Calcium 7.6 L 04/26/21 06:22: POC Glucose 140 H 04/26/21 11:39: POC Glucose 81 Micro: Microbiology 04/20/21 19:11 Nasal Secretion SARS-CoV-2 Antigen (Rapid) - Final Physical Exam Const alert, oriented x3 and no apparent distress Constitutional Narrative: Obese white male lying in bed dialysis nurses at the bedside, nontoxic, no acute distress, appears comfortable General Appearance: cooperative, well kempt and well developed Orientation / Consciousness: awake Exam Limitations: no limitations Nutritional Appearance: obese HEENT normocephalic, head/scalp atraumatic and moist oral mucous membranes Eyes no scleral icterus Neck full ROM General: trachea midline Resp normal respiratory effort, normal air movement, no retractions, no use of accessory muscles and clear to auscultation bilaterally Resp Narrative: Diminished bilaterally at bases Auscultation: diminished lung sounds bilateral lower; Negative for crackles, rales, rhonchi or wheezes Cardio regular rate, regular rhythm, S1 normal heart sound, S2 normal heart sound, no murmurs, no rub, no gallops, no clicks and no JVD Cardio Narrative: Bruit and thrill present to fistula to left upper extremity GI normal to inspection, nondistended, normoactive bowel sounds, soft to palpation, non-tender and non-distended Extremity normal to inspection and full ROM Extremity Narrative: Lower extremity edema is still present however improving, no cyanosis or clubbing General Extremity: edema bilateral lower extremity Details: moderate Skin no rashes or lesions noted, no wounds and skin turgor normal General Skin Exam: no breakdown Neuro oriented x3, moves all extremities and no focal motor deficits Neuro Narrative: Marked generalized weakness Sensorium / Orientation: awake and alert Speech: speech normal Motor Exam: general weakness Psych thought process normal Psych Narrative: Affect is somewhat flat mood seems mildly depressed Assessment & Plan Assessment/Plan (1) ESRD (end stage renal disease) on dialysis: (2) Hyperkalemia: (3) Debility: PLAN: 1. CHF exacerbation -Continue IV Lasix -Patient currently on 2L nasal cannula oxygen 2. ESRD -Patient undergoing dialysis today -Daily BMP ordered -Patient has fistula to left upper arm -Continue ranolazine 3. Hyperkalemia -Potassium 4.7 -BMP ordered daily 4. Diabetes mellitus type 2 -AC at bedtime blood sugars with sliding scale insulin ordered -Continue Lantus every morning -Well-controlled on current regimen 5. Acute on chronic anemia -Patient's hemoglobin 8.7 today 6. Thrombocytopenia -Subcu heparin DC'd -CBC daily Discharge planning-patient will need discharge to custodial facility due to weakness and need for ongoing PT and OT as well as dialysis. Pre-CERT started 04/25/2021 DVT prophylaxis-SCDs, pharmacological prophylaxis DC'd due to decreased hemoglobin as well as platelet count This patient was seen by Catalina Villatoro NP-C under the supervision of Dr. Sanford
[2021-04-26] MEDS: Carvedilol 12.5 MG Tablet PO ×2 (13:23→20:16)
[2021-04-26] MEDS: Tamsulosin HCl 0.4 MG Capsule PO (13:24)
[2021-04-26] MEDS: hydrALAZINE 50 MG Tablet PO ×2 (13:24→20:17)
[2021-04-26] MEDS: guaiFENesin 1,200 MG Tablet 1200 MG PO ×2 (13:24→20:15)
[2021-04-26] MEDS: Aspirin E.C. 81 MG Tablet PO (13:24)
[2021-04-26] MEDS: Cyanocobalamin 500 MCG Tablet 1000 MCG PO (13:25)
[2021-04-26] MEDS: Folic Acid/Vitamin B Comp W-C 1 Capsule 1 CAP PO (13:25)
[2021-04-26] MEDS: Calcium Acetate 667 MG Capsule PO ×2 (13:25→16:49)
[2021-04-26] MEDS: Ranolazine 500 MG Tablet PO ×2 (13:25→20:16)
--- NOTE | 2021-04-26 15:13 | CASEMGMT ---
DANITZA left a voice mail for Kari at [facility] inquiring if she has heard from insurance. Sasha Olivas PRESIDENT AND CHIEF OPERATING OFFICER TANI
--- NOTE | 2021-04-26 15:18 | NURSING ---
Report given to Maureen LAY who is taking over care of pt at this time
[2021-04-26] MEDS: Isosorbide DN 10 MG Tablet PO ×2 (15:35→20:16)
--- NOTE | 2021-04-26 16:20 | PN.HOSP_ITS ---
Subjective Subjective This patient was seen in conjunction with Catalina Taylor NP. The following represents my independent history and physical semination. Please see below for any addendum to previous note. Patient was having significant anxiety on initiation of his dialysis today and was given some Ativan. Upon my exam he was sleeping soundly and comfortable. Dialysis was going well and dialysis nurse was at bedside. Objective Data Objective Data Vital Signs: Vital Signs Temp Pulse Resp BP Pulse Ox 97.7 F L 83 18 130/62 H 95 04/26/21 15:31 04/26/21 15:31 04/26/21 15:31 04/26/21 15:31 04/26/21 15:31 Oxygen Flow Rate (L/min) 2 Oxygen Delivery Method Nasal Cannula Weight: 120.1 kg Body Mass Index (BMI) 37.5 Intake & Output: Intake and Output for Last 24 Hours 04/24/21 04/25/21 04/26/21 23:59 23:59 23:59 Intake Total 720 / 720 1440 / 1440 150 / 150 Output Total 1200 / 1550 3350 / 3350 75 / 75 Balance -480 / -830 -1910 / -1910 75 / 75 Lab / Micro Data Result Diagrams: 04/26/21 05:20 04/26/21 05:20 Labs: Laboratory Results - last 24 hr 04/25/21 18:03: POC Glucose 133 H 04/25/21 21:14: POC Glucose 141 H 04/26/21 05:20: WBC 6.4, RBC 3.23 L, Hgb 8.7 L, Hct 28.9 L, MCV 89.5, MCH 26.9 L , MCHC 30.1 L, RDW Std Deviation 45.7 H, RDW Coeff of Lina 14.1, Plt Count 132 L, MPV 11.8, Immature Gran % (Auto) 0.500, Neut % (Auto) 69.8, Lymph % (Auto) 6.1 L , [place] % (Auto) 17.0 H, Eos % (Auto) 5.8 H, Baso % (Auto) 0.8, Absolute Neuts (auto) 4.4, Absolute Lymphs (auto) 0.39 L, Nucleated RBC % 0, Differential Comment SCANNED 04/26/21 05:20: Sodium 136, Potassium 4.7, Chloride 99, Carbon Dioxide 29.0, Anion Gap 8, BUN 42 H, Creatinine 4.32 H, Estim Creat Clear Calc 17.05, Est GFR (MDRD) Af Amer 18 L, Est GFR (MDRD) Non-Af 15 L, BUN/Creatinine Ratio 9.7 L, Glucose 119 H, Calcium 7.6 L 04/26/21 06:22: POC Glucose 140 H 04/26/21 11:39: POC Glucose 81 Micro: Microbiology 04/20/21 19:11 Nasal Secretion SARS-CoV-2 Antigen (Rapid) - Final Physical Exam Const no apparent distress Constitutional Narrative: Obese white male lying in bed sleeping soundly dialysis nurses at the bedside, nontoxic, no acute distress, appears comfortable General Appearance: cooperative, well kempt and well developed Orientation / Consciousness: awake Nutritional Appearance: obese HEENT normocephalic, head/scalp atraumatic and moist oral mucous membranes Head and Scalp: normocephalic Eyes no scleral icterus Neck full ROM General: trachea midline Resp normal respiratory effort, normal air movement, no retractions, no use of accessory muscles and clear to auscultation bilaterally Resp Narrative: Diminished bilaterally at bases Auscultation: diminished lung sounds bilateral lower; Negative for crackles, rales, rhonchi or wheezes Cardio regular rate, regular rhythm, S1 normal heart sound, S2 normal heart sound, no murmurs, no rub, no gallops, no clicks and no JVD Cardio Narrative: Bruit and thrill present to fistula to left upper extremity GI normal to inspection, nondistended, normoactive bowel sounds, soft to palpation, non-tender and non-distended Extremity normal to inspection and full ROM Extremity Narrative: Lower extremity edema is still present however improving, no cyanosis or clubbing General Extremity: edema bilateral lower extremity Details: moderate Skin General Skin Exam: no breakdown Neuro Neuro Narrative: Patient sleeping soundly Motor Exam: general weakness Psych thought process normal Assessment & Plan Assessment/Plan (1) ESRD (end stage renal disease) on dialysis: (2) Hyperkalemia: (3) Debility: PLAN: 1. CHF exacerbation -Continue IV Lasix -Patient currently on 2L nasal cannula oxygen 2. ESRD -Patient undergoing dialysis today -Daily BMP ordered -Patient has fistula to left upper arm -Continue ranolazine 3. Hyperkalemia -Potassium 4.7 -BMP ordered daily 4. Diabetes mellitus type 2 -AC at bedtime blood sugars with sliding scale insulin ordered -Continue Lantus every morning -Well-controlled on current regimen 5. Acute on chronic anemia -Patient's hemoglobin 8.7 today 6. Thrombocytopenia -Subcu heparin DC'd -CBC daily Discharge planning-patient will need discharge to alf facility due to weakness and need for ongoing PT and OT as well as dialysis. Pre-CERT started 04/25/2021 DVT prophylaxis-SCDs, pharmacological prophylaxis DC'd due to decreased hemoglobin as well as platelet count This patient was seen by Catalina Villatoro, DISPATCHER MAINTENANCE SERVICE-C under the supervision of Dr. Sanford Assessment: Acute hypoxic respiratory failure secondary to decompensated diastolic heart failure and CKD Chronic diastolic heart failure CKD stage V Hyperkalemia Thrombocytopenia Acute on chronic anemia DM-2 Debility CAD Hypertension BPH Remote history of DVT History of GERD Hyperlipidemia Obesity KATJA Depression History of tobacco abuse Plan: -Wean oxygen as able -Dialysis per nephrology -Hemoglobin with slight trend down -Hemoglobin and hematocrit have stabilized -Check Hemoccult stool--> per patient he had one 2 weeks ago and was negative--> still pending -Transfuse for hemoglobin less than 7 -No signs of acute bleeding -Platelets are now trending back up -Continue to hold heparin products -HIT antibody remains pending -SCDs for DVT prophylaxis -Hyperkalemia fluctuates with dialysis days--> relatively stable -Precertification is in process for discharge to [facility]--> discharged once insurance approval is obtained Charges/Coding Visit Charges Inpatient E&M: 42990 Subs Hosp L2
[2021-04-26 16:56] LABS: Bedside Glucose 144 mg/dL (70-110)
[2021-04-26] MEDS: Insulin Lispro 100 UNIT/ML INSULN.PEN SC (20:15)
[2021-04-26] MEDS: Atorvastatin Calcium 80 MG Tablet PO (20:16)
[2021-04-26 20:31] LABS: Bedside Glucose 152 mg/dL (70-110)
[2021-04-27] VITALS (13 sets, daily range): BP systolic 151–173; BP diastolic 39–80; PULSE 73–80; RESP 16–18; TEMP 36.6–37; O2SAT 80–98
[2021-04-27] MEDS: Isosorbide DN 10 MG Tablet PO ×3 (06:33→22:45)
[2021-04-27 06:50] LABS: Bedside Glucose 89 mg/dL (70-110)
[2021-04-27 09:11] LABS: Absolute Lymphocyte Count 0.58 X10^3/uL (0.83-4.51); Absolute Neutrophil Count 3.6 X10^3/uL (2.0-7.7); Basophil# 0.06 X10^3/uL; Eosinophil# 0.45 X10^3/uL; Eosinophils% 7.7 % (0-5); Hematocrit 27.6 % (40-54); Hemoglobin 8.3 g/dL (13.0-16.5); Lymphocyte # 0.58 X10^3/ul (0.83-4.51); Mean Corp Hgb Conc 30.1 g/dL (32-36); Mean Corpuscular Hgb 26.5 pg (27.0-32.0); Mean Corpuscular Volume 88.2 fL (80-94); Mean Platelet Vol. 11.3 fl (6.2-12.0); Monocyte# 1.09 X10^3/uL; Monocyte% 18.8 % (0-10); NRBC Flagged by Analyzer 0 % (0-5); Neutrophil # 3.62 X10^3/uL (2.7-7.7); Neutrophil % 62.3 % (47-70); POSITIVE DIFFERENTIAL YES; Platelet Count 134 K/mm3 (150-450); RBC Distribution Width SD 44.9 fl (35.1-43.9); Red Blood Count 3.13 M/mm3 (4.6-6.2); White Blood Count 5.8 K/mm3 (4.4-11.0)
[2021-04-27 09:20] LABS: Differential Indicated SCAN CRITERIA MET
[2021-04-27 09:21] LABS: Anion Gap 7 (5-15); BUN 38 mg/dL (7-18); BUN/Creat Ratio 9.8 RATIO (10-20); Calcium,Total 7.8 mg/dL (8.5-10.1); Chloride 98 mmol/L (98-107); Creatinine, Serum 3.88 mg/dL (0.70-1.30); EST Glomerular Filtration Rate 17 mL/min (>60); Est Glom Filt Rate - Afr Amer 20 mL/min (>60); Estimated Creatinine Clearance 18.98 ml/min; Glucose 99 mg/dL (74-106); Potassium 4.4 mmol/L (3.5-5.1); Sodium Level 137 mmol/L (136-145)
[2021-04-27 09:28] LABS: Differential Comment SCANNED
[2021-04-27] MEDS: Ranolazine 500 MG Tablet PO ×2 (11:16→22:46)
[2021-04-27] MEDS: guaiFENesin 1,200 MG Tablet 1200 MG PO ×2 (11:16→22:46)
[2021-04-27] MEDS: hydrALAZINE 50 MG Tablet PO ×2 (11:16→22:44)
[2021-04-27] MEDS: Cyanocobalamin 500 MCG Tablet 1000 MCG PO (11:16)
[2021-04-27] MEDS: Carvedilol 12.5 MG Tablet PO ×2 (11:16→22:45)
[2021-04-27] MEDS: Tamsulosin HCl 0.4 MG Capsule PO (11:16)
[2021-04-27] MEDS: Aspirin E.C. 81 MG Tablet PO (11:16)
[2021-04-27] MEDS: Calcium Acetate 667 MG Capsule PO ×3 (11:16→17:25)
[2021-04-27] MEDS: Folic Acid/Vitamin B Comp W-C 1 Capsule 1 CAP PO (11:17)
[2021-04-27 11:25] LABS: Bedside Glucose 122 mg/dL (70-110)
--- NOTE | 2021-04-27 11:38 | CASEMGMT ---
SW faxed updated PT note to [facility]. Awaiting pre-cert. Sasha Olivas [employer] TANKER DRIVER SUPERVISING PRODUCER
--- NOTE | 2021-04-27 12:25 | PCM.PN.HOSP ---
Documented by User: HEMAL Mata 04/27/21 12:30 Subjective Subjective Patient seen and examined. Patient sitting up in chair no distress noted. Objective Data Objective Data Vital Signs: Vital Signs Temp Pulse Resp BP Pulse Ox 98.1 F 77 16 161/80 H 84 04/27/21 11:00 04/27/21 11:16 04/27/21 11:00 04/27/21 11:00 04/27/21 11:12 Oxygen Flow Rate (L/min) [At 3 REST with Oxygen] Oxygen Flow Rate (L/min) [ 3 AMBULATING with Oxygen #1] Oxygen Flow Rate (L/min) 3 Oxygen Delivery Method Nasal Cannula Weight: 260 lb 12.909 oz Body Mass Index (BMI) 37.5 Intake & Output: Intake and Output for Last 24 Hours 04/25/21 04/26/21 04/27/21 23:59 23:59 23:59 Intake Total 1440 / 1440 510 / 510 360 / 360 Output Total 3350 / 3350 75 / 175 100 / 100 Balance -1910 / -1910 435 / 335 260 / 260 Lab / Micro Data Result Diagrams: 04/27/21 08:50 04/27/21 08:50 Labs: Laboratory Results - last 24 hr 04/26/21 16:48: POC Glucose 144 H 04/26/21 20:09: POC Glucose 152 H 04/27/21 06:31: POC Glucose 89 04/27/21 08:50: WBC 5.8, RBC 3.13 L, Hgb 8.3 L, Hct 27.6 L, MCV 88.2, MCH 26.5 L, MCHC 30.1 L, RDW Std Deviation 44.9 H, RDW Coeff of Lina 14.0, Plt Count 134 L, MPV 11.3, Immature Gran % (Auto) 0.200, Neut % (Auto) 62.3, Lymph % (Auto) 10.0 L, [place] % (Auto) 18.8 H, Eos % (Auto) 7.7 H, Baso % (Auto) 1.0, Absolute Neuts (auto) 3.6, Absolute Lymphs (auto) 0.58 L, Nucleated RBC % 0, Differential Comment SCANNED 04/27/21 08:50: Sodium 137, Potassium 4.4, Chloride 98, Carbon Dioxide 32.0, Anion Gap 7, BUN 38 H, Creatinine 3.88 H, Estim Creat Clear Calc 18.98, Est GFR (MDRD) Af Amer 20 L, Est GFR (MDRD) Non-Af 17 L, BUN/Creatinine Ratio 9.8 L, Glucose 99, Calcium 7.8 L 04/27/21 11:11: POC Glucose 122 H Micro: Microbiology 04/20/21 19:11 Nasal Secretion SARS-CoV-2 Antigen (Rapid) - Final Physical Exam Const alert, oriented x3 and no apparent distress General Appearance: cooperative, well kempt and well developed Orientation / Consciousness: awake Exam Limitations: no limitations Nutritional Appearance: obese HEENT normocephalic, head/scalp atraumatic and moist oral mucous membranes Eyes conjunctivae normal and no scleral icterus Neck full ROM and supple General: trachea midline Resp normal respiratory effort, normal air movement and clear to auscultation bilaterally Auscultation: diminished lung sounds bilateral lower Cardio regular rate, regular rhythm, S1 normal heart sound and S2 normal heart sound Cardio Narrative: Bruit and thrill present to fistula to left upper extremity GI normal to inspection, nondistended, normoactive bowel sounds, soft to palpation and non-tender Extremity normal to inspection and full ROM Extremity Narrative: Lower extremity edema is still present however improving, no cyanosis or clubbing General Extremity: edema bilateral lower extremity Details: moderate Skin no rashes or lesions noted, no wounds and skin turgor normal General Skin Exam: no breakdown Neuro oriented x3, moves all extremities and no focal motor deficits Sensorium / Orientation: awake and alert Speech: speech normal Motor Exam: general weakness Psych thought process normal Psych Narrative: Affect is somewhat flat mood seems mildly depressed Assessment & Plan Assessment/Plan (1) ESRD (end stage renal disease) on dialysis: (2) Hyperkalemia: (3) Debility: PLAN: 1. CHF exacerbation -Patient currently on 3L nasal cannula oxygen 2. ESRD -No dialysis today, potassium 4.4 -Daily BMP ordered -Patient has fistula to left upper arm -Continue ranolazine 3. Hyperkalemia -Resolved with dialysis -Potassium 4.4 -BMP ordered daily 4. Diabetes mellitus type 2 -AC at bedtime blood sugars with sliding scale insulin ordered -Continue Lantus every morning -Well-controlled on current regimen 5. Acute on chronic anemia -Patient's hemoglobin 8.3 today 6. Thrombocytopenia -Subcu heparin DC'd -CBC daily Discharge planning-[facility] due to weakness and need for ongoing PT and OT as well as dialysis. Pre-CERT started 04/25/2021 DVT prophylaxis-SCDs, pharmacological prophylaxis DC'd due to decreased hemoglobin as well as platelet count This patient was seen by Catalina Villatoro NP-C under the supervision of Dr. Sanford Documented by User: Dr. Tressa Sanford DO 04/27/21 16:05 Subjective Subjective This patient was seen in conjunction with Catalina Villatoro NP. The following represents my independent history and physical examination. Please see below for addendum the above. Patient is sitting up in a chair and states that he is feeling well. He looks the best I seen him look since he has been here. We are still waiting on pre-CERT for discharge. Patient has no acute needs or complaints at this time. Objective Data Lab / Micro Data Result Diagrams: 04/27/21 08:50 04/27/21 08:50 Physical Exam Const alert, oriented x3 and no apparent distress Constitutional Narrative: Obese white male sitting up in a chair at the bedside, appears comfortable, nontoxic, very pleasant General Appearance: cooperative, well kempt and well developed Orientation / Consciousness: awake Exam Limitations: no limitations Nutritional Appearance: obese HEENT normocephalic, head/scalp atraumatic and moist oral mucous membranes HEENT Narrative: Mallampati 3, no thrush, dentition is fair Head and Scalp: normocephalic Eyes no scleral icterus Neck full ROM General: trachea midline Resp normal respiratory effort, normal air movement, no retractions, no use of accessory muscles and clear to auscultation bilaterally Auscultation: diminished lung sounds bilateral lower; Negative for crackles, rales, rhonchi or wheezes Cardio regular rate, regular rhythm, S1 normal heart sound and S2 normal heart sound Cardio Narrative: Bruit and thrill present to fistula to left upper extremity GI normal to inspection, nondistended, normoactive bowel sounds, soft to palpation and non-tender Extremity normal to inspection and full ROM Extremity Narrative: Lower extremity edema is still present however improving, no cyanosis or clubbing General Extremity: edema bilateral lower extremity Details: moderate Skin General Skin Exam: no breakdown Neuro oriented x3, moves all extremities and no focal motor deficits Neuro Narrative: Patient sleeping soundly Sensorium / Orientation: awake and alert Speech: speech normal Motor Exam: general weakness Psych thought process normal Assessment & Plan Assessment/Plan (1) ESRD (end stage renal disease) on dialysis: (2) Debility: (3) Chronic anemia: PLAN: Assessment: Acute hypoxic respiratory failure secondary to decompensated diastolic heart failure and CKD Chronic diastolic heart failure CKD stage V Hyperkalemia Thrombocytopenia Acute on chronic anemia DM-2 Debility CAD Hypertension BPH Remote history of DVT History of GERD Hyperlipidemia Obesity KATJA Depression History of tobacco abuse Plan: -Wean oxygen as able--> patient remains on 3 L -Dialysis per nephrology -Hemoglobin with slight trend down -Hemoglobin and hematocrit have stabilized -Check Hemoccult stool--> per patient he had one 2 weeks ago and was negative--> still pending -Transfuse for hemoglobin less than 7 -No signs of acute bleeding -Platelets are stable today 134,000 -Continue to hold heparin products -HIT antibody remains pending -SCDs for DVT prophylaxis -Hyperkalemia fluctuates with dialysis days--> relatively stable -Precertification is in process for discharge to [facility]--> discharged once insurance approval is obtained Charges/Coding Visit Charges Inpatient E&M: 39261 Subs Hosp L2
--- NOTE | 2021-04-27 13:10 | CASEMGMT ---
DANITZA called Kari at [facility] and left her a voice mail requesting a return call. Sasha Olivas JOB PUTTER UP AND TICKET PREPARER TANI
--- NOTE | 2021-04-27 14:26 | CASEMGMT ---
SW faxed OT notes from today to [facility]. PT note from today was faxed earlier today. Sasha Olivas MEAT DRESSERAfua FREIRE
--- NOTE | 2021-04-27 15:11 | CASEMGMT ---
DANITZA called Kari at [facility] and she has not heard from insurance. She did get patient's PT and OT notes from today. Sasha Olivas WASTEWATER ENGINEER TANI
--- NOTE | 2021-04-27 15:52 | CASEMGMT ---
DANITZA called Kari and asked her to call PCU if she gets pre-cert as DANITZA is leaving for the day. DANITZA placed a green sheet on the chart. DANITZA notified charge entry specialist Ashley of this information. Sasha FREIRE
[2021-04-27 18:11] LABS: Bedside Glucose 133 mg/dL (70-110)
[2021-04-27] MEDS: Atorvastatin Calcium 80 MG Tablet PO (22:46)
[2021-04-27] MEDS: 0.9% Saline Lock 10 ML Syringe IV (22:47)
[2021-04-27 23:06] LABS: Bedside Glucose 142 mg/dL (70-110)
[2021-04-27] MEDS: Calcium Carbonate 500 MG Tablet PO (23:26)
[2021-04-28] VITALS (13 sets, daily range): BP systolic 142–163; BP diastolic 56–77; PULSE 72–78; RESP 16–20; TEMP 36.3–37.1; O2SAT 93–98
[2021-04-28] MEDS: Polyethylene Glycol 3350 17 GM PACKET PO ×2 (00:46→09:04)
[2021-04-28] MEDS: Senna/Docusate Sodium 1 Tablet 2 TABLET PO (00:47)
[2021-04-28] MEDS: Isosorbide DN 10 MG Tablet PO ×2 (05:42→14:08)
[2021-04-28 06:05] LABS: Bedside Glucose 105 mg/dL (70-110)
[2021-04-28 06:25] LABS: Absolute Lymphocyte Count 0.41 X10^3/uL (0.83-4.51); Absolute Neutrophil Count 4.3 X10^3/uL (2.0-7.7); Basophil# 0.04 X10^3/uL; Basophil% 0.6 % (0-1); Eosinophil# 0.42 X10^3/uL; Eosinophils% 6.8 % (0-5); Hematocrit 26.7 % (40-54); Hemoglobin 8.3 g/dL (13.0-16.5); Lymphocyte # 0.41 X10^3/ul (0.83-4.51); Lymphocyte % 6.6 % (19-41); Mean Corp Hgb Conc 31.1 g/dL (32-36); Mean Corpuscular Hgb 27.2 pg (27.0-32.0); Mean Corpuscular Volume 87.5 fL (80-94); Mean Platelet Vol. 11.3 fl (6.2-12.0); Monocyte# 1.07 X10^3/uL; Monocyte% 17.2 % (0-10); NRBC Flagged by Analyzer 0 % (0-5); Neutrophil # 4.25 X10^3/uL (2.7-7.7); Neutrophil % 68.5 % (47-70); POSITIVE DIFFERENTIAL YES; Platelet Count 132 K/mm3 (150-450); RBC Distribution Width SD 44.6 fl (35.1-43.9); Red Blood Count 3.05 M/mm3 (4.6-6.2); White Blood Count 6.2 K/mm3 (4.4-11.0)
[2021-04-28 06:30] LABS: Differential Indicated SCAN CRITERIA MET
[2021-04-28 06:44] LABS: Anion Gap 6 (5-15); BUN 49 mg/dL (7-18); Calcium,Total 8.3 mg/dL (8.5-10.1); Chloride 101 mmol/L (98-107); Creatinine, Serum 4.09 mg/dL (0.70-1.30); EST Glomerular Filtration Rate 16 mL/min (>60); Est Glom Filt Rate - Afr Amer 19 mL/min (>60); Estimated Creatinine Clearance 18.01 ml/min; Glucose 116 mg/dL (74-106); Potassium 4.4 mmol/L (3.5-5.1); Sodium Level 138 mmol/L (136-145)
[2021-04-28 06:50] LABS: Differential Comment SCANNED
[2021-04-28] MEDS: Folic Acid/Vitamin B Comp W-C 1 Capsule 1 CAP PO (09:04)
[2021-04-28] MEDS: Aspirin E.C. 81 MG Tablet PO (09:04)
[2021-04-28] MEDS: Tamsulosin HCl 0.4 MG Capsule PO (09:04)
[2021-04-28] MEDS: Cyanocobalamin 500 MCG Tablet 1000 MCG PO (09:04)
[2021-04-28] MEDS: Carvedilol 12.5 MG Tablet PO (09:04)
[2021-04-28] MEDS: Ranolazine 500 MG Tablet PO (09:04)
[2021-04-28] MEDS: hydrALAZINE 50 MG Tablet PO (09:04)
[2021-04-28] MEDS: Calcium Acetate 667 MG Capsule PO ×3 (09:05→16:25)
[2021-04-28] MEDS: guaiFENesin 1,200 MG Tablet 1200 MG PO (09:05)
[2021-04-28 09:16] LABS: Bedside Glucose 99 mg/dL (70-110)
[2021-04-28] MEDS: Ondansetron ODT 4 MG Tablet PO (09:41)
--- NOTE | 2021-04-28 11:52 | PCM.PN.HOSP ---
Documented by User: Gene RIGGINS 04/28/21 15:35 Subjective Subjective Patient is a 65-year-old male comfortably resting in bed, alert and orient x3. Patient denies development of any new symptoms overnight. Does not appear in acute distress. Objective Data Objective Data Vital Signs: Vital Signs Temp Pulse Resp BP Pulse Ox 98.1 F 78 16 149/68 H 97 04/28/21 09:00 04/28/21 09:04 04/28/21 09:00 04/28/21 09:00 04/28/21 09:00 Oxygen Flow Rate (L/min) [At 3 REST with Oxygen] Oxygen Flow Rate (L/min) [ 3 AMBULATING with Oxygen #1] Oxygen Flow Rate (L/min) 3 Oxygen Delivery Method Nasal Cannula Weight: 256 lb 6.362 oz Body Mass Index (BMI) 37.5 Intake & Output: Intake and Output for Last 24 Hours 04/26/21 04/27/21 04/28/21 23:59 23:59 23:59 Intake Total 510 / 510 600 / 840 480 / 480 Output Total 75 / 175 100 / 300 320 / 320 Balance 435 / 335 500 / 540 160 / 160 Lab / Micro Data Result Diagrams: 04/28/21 06:00 04/28/21 06:00 Labs: Laboratory Results - last 24 hr 04/27/21 17:23: POC Glucose 133 H 04/27/21 22:50: POC Glucose 142 H 04/28/21 05:46: POC Glucose 105 04/28/21 06:00: WBC 6.2, RBC 3.05 L, Hgb 8.3 L, Hct 26.7 L, MCV 87.5, MCH 27.2, MCHC 31.1 L, RDW Std Deviation 44.6 H, RDW Coeff of Lina 14.0, Plt Count 132 L, MPV 11.3, Immature Gran % (Auto) 0.300, Neut % (Auto) 68.5, Lymph % (Auto) 6.6 L, [place] % (Auto) 17.2 H, Eos % (Auto) 6.8 H, Baso % (Auto) 0.6, Absolute Neuts (auto) 4.3, Absolute Lymphs (auto) 0.41 L, Nucleated RBC % 0, Differential Comment SCANNED 04/28/21 06:00: Sodium 138, Potassium 4.4, Chloride 101, Carbon Dioxide 31.0, Anion Gap 6, BUN 49 H, Creatinine 4.09 H, Estim Creat Clear Calc 18.01, Est GFR (MDRD) Af Amer 19 L, Est GFR (MDRD) Non-Af 16 L, BUN/Creatinine Ratio 12.0, Glucose 116 H, Calcium 8.3 L 04/28/21 09:03: POC Glucose 99 Micro: Microbiology 04/20/21 19:11 Nasal Secretion SARS-CoV-2 Antigen (Rapid) - Final Physical Exam Const alert, oriented x3 and no apparent distress HEENT head/scalp atraumatic and moist oral mucous membranes Head and Scalp: normocephalic Eyes PERRL, EOMs intact bilaterally and conjunctivae normal Neck no lymphadenopathy, supple and no JVD Resp normal respiratory effort, no retractions and no use of accessory muscles Cardio regular rate, regular rhythm, no murmurs and no JVD GI normal to inspection, nondistended, normoactive bowel sounds, soft to palpation and non-tender Extremity normal to inspection, full ROM and no clubbing, cyanosis or edema Skin no rashes or lesions noted, no wounds, skin turgor normal and no jaundice Neuro CN's II-XII intact bilaterally Psych affect normal Assessment & Plan Assessment/Plan (1) ESRD (end stage renal disease) on dialysis: (2) CHF exacerbation: QUALIFIERS: Heart failure type: unspecified Qualified Code(s): I50.9 - Heart failure, unspecified (3) Debility: PLAN: Day 8 Discharge planning: Currently awaiting to discharge to [facility] pending PRECERT. 1) acute on chronic HFpEF Currently satting 90% on 3 L, which is patient's baseline oxygen requirement. Most recent echocardiogram completed in November 2020 showed an EF of 55 to 60%. Plan; continue O2 supplementation, continue Coreg. 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 Plan is for dialysis today. Continue ranolazine. 3) DM2 Continue Lantus in a.m., Accu-Cheks with sliding scale insulin ordered. 4) anemia of chronic disease Stable, hemoglobin currently 8.3. 5) thrombocytopenia Platelets at 132, continue to trend CBC. DVT prophylaxis - not indicated Patient seen by Gene Llanos PA-C, under the supervision of Dr. Sanford. Documented by User: Dr. Tressa Sanford DO 04/28/21 16:05 Subjective Subjective This patient was seen in conjunction with GILSON Caceres. The following is representation my independent history and physical examination. Please see below for addendum the above. Patient is complaining of some nausea today. He states he is been having this on and off. He denies the need for any antiemetic at this time. He has no acute complaints otherwise other than he did not sleep well last night. Objective Data Lab / Micro Data Result Diagrams: 04/28/21 06:00 04/28/21 06:00 Physical Exam Const alert, oriented x3 and no apparent distress Constitutional Narrative: Obese white male sitting up in bed appears as if he is not feeling well but nontoxic General Appearance: cooperative, well kempt and well developed Orientation / Consciousness: awake Exam Limitations: no limitations Nutritional Appearance: obese HEENT normocephalic, head/scalp atraumatic and moist oral mucous membranes Head and Scalp: normocephalic Eyes no scleral icterus Neck full ROM General: trachea midline Resp normal respiratory effort, normal air movement, no retractions, no use of accessory muscles and clear to auscultation bilaterally Resp Narrative: Diminished bilaterally at bases Auscultation: diminished lung sounds bilateral lower; Negative for crackles, rales, rhonchi or wheezes Cardio regular rate, regular rhythm, S1 normal heart sound and S2 normal heart sound Cardio Narrative: Bruit and thrill present to fistula to left upper extremity GI normal to inspection, nondistended, normoactive bowel sounds, soft to palpation and non-tender Extremity normal to inspection and full ROM Extremity Narrative: Lower extremity edema is still present however continues to improve, no cyanosis or clubbing General Extremity: edema bilateral lower extremity Details: moderate Peripheral Pulses: Yes pulses 2+ throughout Skin General Skin Exam: no breakdown Neuro oriented x3, moves all extremities and no focal motor deficits Neuro Narrative: Patient sleeping soundly Sensorium / Orientation: awake and alert Speech: speech normal Motor Exam: general weakness Psych thought process normal Assessment & Plan Assessment/Plan (1) ESRD (end stage renal disease) on dialysis: (2) Debility: (3) Chronic anemia: PLAN: Assessment: Acute hypoxic respiratory failure secondary to decompensated diastolic heart failure and CKD Chronic diastolic heart failure CKD stage V Hyperkalemia Thrombocytopenia Acute on chronic anemia DM-2 Debility CAD Hypertension BPH Remote history of DVT History of GERD Hyperlipidemia Obesity KATJA Depression History of tobacco abuse Plan: -Wean oxygen as able--> patient remains on 3 L -Dialysis per nephrology -Hemoglobin with slight trend down -Hemoglobin and hematocrit have stabilized -Check Hemoccult stool--> per patient he had one 2 weeks ago and was negative--> still on collected -Transfuse for hemoglobin less than 7 -No signs of acute bleeding -Platelets are stable today 132,000 -Continue to hold heparin products -HIT antibody remains pending -SCDs for DVT prophylaxis -Hyperkalemia fluctuates with dialysis days--> relatively stable -Precertification is in process for discharge to [facility]--> discharged once insurance approval is obtained Charges/Coding Visit Charges Inpatient E&M: 35992 Subs Hosp L2
--- NOTE | 2021-04-28 12:01 | CASEMGMT ---
DANITZA called Kari at [facility]. She said she checked on patient's pre-cert and it is still pending. She did talk with someone and they will try and expedite the case. Kari then said there may be a problem. She spoke with dialysis and they are short staffed so they won't be able to dialyze patient at [facility] until Sunday. He will have to go to [facility] in [place] for his treatment. DANITZA told Kari that DANITZA is aware of this and DANITZA told her this on Sunday. DANITZA reminded her she did not think it would be a problem as we would have to wait on pre-cert. DANITZA told Kari that they will need to arrange transportation for his dialysis on Sunday. He has to be there at 6:15a and he starts at 6:50a. Kari said that their transportation does not run on Sunday. DANITZA told her that they can try his insurance as they do provide transportation. She will talk with her Dress Cutter. Sasha Olivas WORKERS' COMPENSATION MAGISTRATE TANI
[2021-04-28 12:16] LABS: Bedside Glucose 111 mg/dL (70-110)
--- NOTE | 2021-04-28 13:01 | PN.RENAL_ITS ---
Subjective Subjective still with weakness, waiting on precert for ECF. Dialysis today Objective Data Objective Data Vital Signs: Vital Signs Temp Pulse Resp BP Pulse Ox 98.1 F 78 16 149/68 H 97 04/28/21 09:00 04/28/21 09:04 04/28/21 09:00 04/28/21 09:00 04/28/21 09:00 Oxygen Flow Rate (L/min) [At 3 REST with Oxygen] Oxygen Flow Rate (L/min) [ 3 AMBULATING with Oxygen #1] Oxygen Flow Rate (L/min) 3 Oxygen Delivery Method Nasal Cannula Weight: 116.3 kg Body Mass Index (BMI) 37.5 Intake & Output: Intake and Output for Last 24 Hours 04/26/21 04/27/21 04/28/21 23:59 23:59 23:59 Intake Total 510 / 510 600 / 840 680 / 680 Output Total 75 / 175 100 / 300 320 / 320 Balance 435 / 335 500 / 540 360 / 360 Lab / Micro Data Result Diagrams: 04/28/21 06:00 04/28/21 06:00 Labs: Laboratory Results - last 24 hr 04/27/21 17:23: POC Glucose 133 H 04/27/21 22:50: POC Glucose 142 H 04/28/21 05:46: POC Glucose 105 04/28/21 06:00: WBC 6.2, RBC 3.05 L, Hgb 8.3 L, Hct 26.7 L, MCV 87.5, MCH 27.2, MCHC 31.1 L, RDW Std Deviation 44.6 H, RDW Coeff of Lina 14.0, Plt Count 132 L, MPV 11.3, Immature Gran % (Auto) 0.300, Neut % (Auto) 68.5, Lymph % (Auto) 6.6 L , [place] % (Auto) 17.2 H, Eos % (Auto) 6.8 H, Baso % (Auto) 0.6, Absolute Neuts (auto) 4.3, Absolute Lymphs (auto) 0.41 L, Nucleated RBC % 0, Differential Comment SCANNED 04/28/21 06:00: Sodium 138, Potassium 4.4, Chloride 101, Carbon Dioxide 31.0, Anion Gap 6, BUN 49 H, Creatinine 4.09 H, Estim Creat Clear Calc 18.01, Est GFR (MDRD) Af Amer 19 L, Est GFR (MDRD) Non-Af 16 L, BUN/Creatinine Ratio 12.0, Glucose 116 H, Calcium 8.3 L 04/28/21 09:03: POC Glucose 99 04/28/21 12:08: POC Glucose 111 H Micro: Microbiology 04/20/21 19:11 Nasal Secretion SARS-CoV-2 Antigen (Rapid) - Final Physical Exam Const alert and oriented x3 Resp clear to auscultation bilaterally Cardio regular rate GI non-tender and non-distended Auscultation: normoactive bowel sounds Palpation: soft Extremity General Extremity: edema bilateral Neuro Sensorium / Orientation: awake and alert Psych cooperative Assessment & Plan Assessment/Plan (1) ESRD (end stage renal disease) on dialysis: PLAN: dialysis today then Sat. [facility] (2) Essential (primary) hypertension: PLAN: stable BP (3) Iron deficiency anemia: QUALIFIERS: Iron deficiency anemia type: chronic blood loss Qualified Code(s): D50.0 - Iron deficiency anemia secondary to blood loss (chronic) PLAN: on iron, JOHAN, prbc 1u today. C (4) Diabetes mellitus type 2, insulin dependent: (5) CAD (coronary artery disease): (6) Nephrotic syndrome: PLAN: chronic leg edema due to nephrotic proteinuria
--- NOTE | 2021-04-28 15:25 | CASEMGMT ---
DANITZA called [employer]. DANITZA asked if she is the one that submits information to insurance or if they have a third constitution party that does this. Arelisabel said that she sends the information to their corporate and corporate submits information to insurance. DANITZA asked if they had any luck with setting up transportation. She said they do not have transportation. DANITZA called [facility] and arranged transportation for Sunday-. Patient has to be at [facility] at 615 am. When patient is ready for nut picker he will need to call. Patient has to be ready by 530am as the transportation may be there that early and they are only able to wait 5 minutes. SW put this information in patient's Transfer to Extended Care. SW will also relay this information to [facility]. Sasha FREIRE
--- NOTE | 2021-04-28 16:02 | CASEMGMT ---
DANITZA called [employer] and left her a voice mail letting her know if she gets insurance authorization to call [facility]. DANITZA also left the phone number also. Green sheet is on the chart. Sasha FREIRE
[2021-04-28 16:41] LABS: Bedside Glucose 92 mg/dL (70-110)
--- NOTE | 2021-04-28 17:04 | CASEMGMT ---
This RN LEYLA received notification from Argenis at [facility] that precert has been obtained and pt can be accepted to [facility] this evening. ALIREZA Gonsalez notified. Paulina Castaneda RN CM
--- NOTE | 2021-04-28 17:07 | PCM.TXEXTCAR ---
Documented by User: Gene RIGGINS 04/28/21 17:29 Diet 04/25/21 08:33 Diet: Renal - General Dietary Modifications:: Consistent Carbohydrate Sodium Restricted Potassium Restricted Phosphorus Restricted Is pt able to select menu?: No Fluid restriction:: 1500 mL Wound(s) top of right foot: Wound Type: scabs Therapies Physical Therapy: Eval and Treat Occupational Therapy: Eval and Treat Problem/Diagnosis (1) ESRD (end stage renal disease) on dialysis: Status: Acute (2) Debility: Status: Acute (3) Chronic anemia: Status: Chronic Allergies/Procedures Done in Hospital Allergies escitalopram [From Lexapro] Allergy (Verified 04/20/21 17:14) Unknown sertraline [From Zoloft] Allergy (Verified 04/20/21 17:14) Unknown lisinopril Adverse Reaction (Severe, Verified 04/20/21 17:14) Cough Type of Care/Length of Stay Estimated LOS: Convalescent Care Less Than 30 days Type of Care Needed: Skilled Rehab Potential: Good Prognosis: Good Additional Orders/Day of Discharge Additional Orders: Transportation to [facility] in [place] Sunday04-30-21. Patient has to be there at 6:15a. Transportation was arranged with [facility] via wheelchair van. Transportation will be there as early as 5:30a. Patient must be ready by 5:30a as the transportation will only wait 5 minutes. He will call [facility] transport from dialysis when he is ready to return to [facility]. Day of Discharge: 04/28/21 Dietary and Speech Recommendations Dietitian Recommendations/Changes: Continue Renal diet w/ 1500ml FR, will add consistent-carbohydrate diet restriction. Will d/c glucerna shake w/ meals and add Nepro Carb Steady as needed. Discharge Plan Admission Admit Date/Time: 04/20/21 20:28 Primary Reason for Your Visit: Shortness of breath Attending Provider: Tressa Sanford Primary Care Provider: Gene Miller Consulting Providers: Kandis Sanford Discharge Orders/Prescriptions Prescriptions: New hydralazine 50 mg tablet 50 mg PO BID Qty: 60 RF: 0 calcium acetate 667 mg tablet 667 mg PO TID Qty: 90 RF: 0 isosorbide dinitrate 10 mg tablet 10 mg PO TID Qty: 90 RF: 0 Continued ranolazine [Ranexa] 500 mg tablet extended release 12 hr 500 mg PO BID Qty: 60 RF: 11 atorvastatin 80 mg tablet 80 mg PO QHS Qty: 90 RF: 3 Hold Instructions: Pt is also on Ranexa nitroglycerin 0.4 MG tablet 0.4 mg SUBLINGUAL Q5M PRN (Reason: Chest Pain) RF: 0 insulin degludec 200 UNIT/ML insulin pen 15 unit SQ DAILY RF: 0 aspirin 81 MG tablet 81 mg PO DAILY Qty: 0 RF: 0 carvedilol [Coreg] 25 mg tablet 12.5 mg PO BID RF: 0 hydralazine 100 mg Tablet 100 mg PO TID RF: 0 sodium bicarbonate 650 mg tablet 650 mg PO BID RF: 0 ondansetron 4 mg tablet,disintegrating 4 mg PO Q8H PRN PRN (Reason: Nausea) Qty: 10 RF: 0 ferrous sulfate [FeroSul] 325 mg (65 mg iron) tablet 325 mg PO DAILY RF: 0 amlodipine [Norvasc] 10 mg tablet 10 mg PO DAILY RF: 0 guanfacine 1 mg tablet 1 mg PO DAILY RF: 0 cholecalciferol (vitamin D3) 1,250 mcg (50,000 unit) capsule 1,250 mcg PO DAILY RF: 0 cyanocobalamin (vitamin B-12) 1,000 mcg capsule 1,000 mcg PO DAILY RF: 0 tamsulosin [Flomax] 0.4 mg capsule 0.4 mg PO DAILY Qty: 30 RF: 0 Discontinued furosemide [Lasix] 40 mg Tablet 40 mg PO BID RF: 0 Referrals / Follow Up: Gene Miller MD [Primary Care Provider] - Disposition Disposition (needs filled in before D/C Order can be placed): Residential Facility Documented by User: Dr. Tressa Sanford, 04/28/21 18:22 Allergies/Procedures Done in Hospital Allergies escitalopram [From Lexapro] Allergy (Verified 04/20/21 17:14) Unknown sertraline [From Zoloft] Allergy (Verified 04/20/21 17:14) Unknown lisinopril Adverse Reaction (Severe, Verified 04/20/21 17:14) Cough Discharge Plan Admission Admit Date/Time: 04/20/21 20:28 Primary Reason for Your Visit: Shortness of breath Attending Provider: Tressa Sanford Primary Care Provider: Gene Miller Consulting Providers: Kandis Sanford Discharge Orders/Prescriptions Prescriptions: New hydralazine 50 mg tablet 50 mg PO BID Qty: 60 RF: 0 calcium acetate 667 mg tablet 667 mg PO TID Qty: 90 RF: 0 isosorbide dinitrate 10 mg tablet 10 mg PO TID Qty: 90 RF: 0 Continued ranolazine [Ranexa] 500 mg tablet extended release 12 hr 500 mg PO BID Qty: 60 RF: 11 atorvastatin 80 mg tablet 80 mg PO QHS Qty: 90 RF: 3 Hold Instructions: Pt is also on Ranexa nitroglycerin 0.4 MG tablet 0.4 mg SUBLINGUAL Q5M PRN (Reason: Chest Pain) RF: 0 insulin degludec 200 UNIT/ML insulin pen 15 unit SQ DAILY RF: 0 aspirin 81 MG tablet 81 mg PO DAILY Qty: 0 RF: 0 carvedilol [Coreg] 25 mg tablet 12.5 mg PO BID RF: 0 hydralazine 100 mg Tablet 100 mg PO TID RF: 0 sodium bicarbonate 650 mg tablet 650 mg PO BID RF: 0 ondansetron 4 mg tablet,disintegrating 4 mg PO Q8H PRN PRN (Reason: Nausea) Qty: 10 RF: 0 ferrous sulfate [FeroSul] 325 mg (65 mg iron) tablet 325 mg PO DAILY RF: 0 amlodipine [Norvasc] 10 mg tablet 10 mg PO DAILY RF: 0 guanfacine 1 mg tablet 1 mg PO DAILY RF: 0 cholecalciferol (vitamin D3) 1,250 mcg (50,000 unit) capsule 1,250 mcg PO DAILY RF: 0 cyanocobalamin (vitamin B-12) 1,000 mcg capsule 1,000 mcg PO DAILY RF: 0 tamsulosin [Flomax] 0.4 mg capsule 0.4 mg PO DAILY Qty: 30 RF: 0 Discontinued furosemide [Lasix] 40 mg Tablet 40 mg PO BID RF: 0 Referrals / Follow Up: Gene Miller MD [Primary Care Provider] - Disposition Disposition (needs filled in before D/C Order can be placed): Residential Facility
--- NOTE | 2021-04-28 17:35 | DS.PCM_ITS ---
Documented by User: Gene RIGGINS 04/28/21 17:40 Providers Date of Admission: 04/20/21 Primary Care Physician: Dr. Gene Miller MD Consultations 04/20/21 20:42 Consult: Nephrology Routine Consulting Provider: Kandis Sanford Reason for Consult: CKD stage v, CHF exa EMERGENT Consult: No MD Notified: Yes Date Notified: 04/20/21 Time Notified: 19:00 Method of Notification: Verbal Reason For Visit: CHF EXAC Diagnosis Discharge Diagnosis (1) ESRD (end stage renal disease) on dialysis: Status: Acute Code(s): N18.6 - End stage renal disease; Z99.2 - Dependence on renal dialysis (2) Debility: Status: Acute Code(s): R53.81 - Other malaise (3) Chronic anemia: Status: Chronic Code(s): D64.9 - Anemia, unspecified Medications at Discharge Home Medications nitroglycerin 0.4 mg SUBLINGUAL Q5M PRN 06/30/15 insulin degludec 15 unit SQ DAILY 02/20/17 aspirin 81 mg PO DAILY #0 07/09/18 amlodipine 10 mg tablet 10 mg PO DAILY 02/10/20 cholecalciferol (vitamin D3) 1,250 mcg (50,000 unit) capsule 1,250 mcg PO DAILY 02/10/20 cyanocobalamin (vitamin B-12) 1,000 mcg capsule 1,000 mcg PO DAILY 02/10/20 guanfacine 1 mg tablet 1 mg PO DAILY 02/10/20 carvedilol [Coreg] 12.5 mg PO BID 11/20/20 hydralazine 100 mg PO TID 02/27/21 sodium bicarbonate 650 mg PO BID 02/27/21 atorvastatin 80 mg tablet 80 mg PO QHS #90 tab 03/25/21 ranolazine 500 mg tablet,extended release,12 hr 500 mg PO BID #60 tab 03/25/21 ondansetron 4 mg PO Q8H PRN PRN #10 tab 04/06/21 ferrous sulfate [FeroSul] 325 mg PO DAILY 04/20/21 tamsulosin 0.4 mg capsule 0.4 mg PO DAILY #30 cap 04/20/21 calcium acetate 667 mg PO TID #90 tab 04/28/21 hydralazine 50 mg PO BID #60 tab 04/28/21 isosorbide dinitrate 10 mg PO TID #90 tab 04/28/21 Hospital Course Procedures Transthoracic echo Summary of Care Provided Minutes Spent on Discharge: 35 Hospital Course: Disposition: Patient to discharge to [facility] for ongoing skilled therapy. 1) acute on chronic HFpEF Currently satting 90% on 3 L, which is patient's baseline oxygen requirement. Most recent echocardiogram completed in November 2020 showed an EF of 55 to 60%. Since patient is now being dialyzed, will discontinue Lasix. Continue Coreg. 2) ESRD To be dialyzed today, Dr. 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 3) DM2 Continue home diabetic regimen. 4) anemia of chronic disease Stable, hemoglobin currently 8.3. 5) thrombocytopenia Stable, currently 132. Patient seen by Gene Llanos PA-C, under the supervision of Dr. Sanford. Weight / BMI Weight Weight: 256 lb 6.362 oz Body Mass Index (BMI) 37.5 ABG / Lab / Microbiology Data Result Diagrams: 04/28/21 06:00 04/28/21 06:00 Laboratory: Laboratory Results - last 24 hr 04/27/21 17:23: POC Glucose 133 H 04/27/21 22:50: POC Glucose 142 H 04/28/21 05:46: POC Glucose 105 04/28/21 06:00: WBC 6.2, RBC 3.05 L, Hgb 8.3 L, Hct 26.7 L, MCV 87.5, MCH 27.2, MCHC 31.1 L, RDW Std Deviation 44.6 H, RDW Coeff of Lina 14.0, Plt Count 132 L, MPV 11.3, Immature Gran % (Auto) 0.300, Neut % (Auto) 68.5, Lymph % (Auto) 6.6 L , [place] % (Auto) 17.2 H, Eos % (Auto) 6.8 H, Baso % (Auto) 0.6, Absolute Neuts (auto) 4.3, Absolute Lymphs (auto) 0.41 L, Nucleated RBC % 0, Differential Comment SCANNED 04/28/21 06:00: Sodium 138, Potassium 4.4, Chloride 101, Carbon Dioxide 31.0, Anion Gap 6, BUN 49 H, Creatinine 4.09 H, Estim Creat Clear Calc 18.01, Est GFR (MDRD) Af Amer 19 L, Est GFR (MDRD) Non-Af 16 L, BUN/Creatinine Ratio 12.0, Glucose 116 H, Calcium 8.3 L 04/28/21 09:03: POC Glucose 99 04/28/21 12:08: POC Glucose 111 H 04/28/21 16:24: POC Glucose 92 Microbiology: Microbiology 04/20/21 19:11 Nasal Secretion SARS-CoV-2 Antigen (Rapid) - Final Meaningful Use Info Meaningful Use Diagnoses (Choose all that apply): CHF CHF BRAULIO/ARB ordered at discharge?: No Reason BRAULIO/ARB not ordered?: Worsening renal disease Documented LVEF (%): 10 Discharge Plan Admission Admit Date/Time: 04/20/21 20:28 Primary Reason for Your Visit: Shortness of breath Attending Provider: Tressa Sanford Primary Care Provider: Gene Miller Consulting Providers: Kandis Sanford Discharge Orders/Prescriptions Prescriptions: New hydralazine 50 mg tablet 50 mg PO BID Qty: 60 RF: 0 calcium acetate 667 mg tablet 667 mg PO TID Qty: 90 RF: 0 isosorbide dinitrate 10 mg tablet 10 mg PO TID Qty: 90 RF: 0 Continued ranolazine [Ranexa] 500 mg tablet extended release 12 hr 500 mg PO BID Qty: 60 RF: 11 atorvastatin 80 mg tablet 80 mg PO QHS Qty: 90 RF: 3 Hold Instructions: Pt is also on Ranexa nitroglycerin 0.4 MG tablet 0.4 mg SUBLINGUAL Q5M PRN (Reason: Chest Pain) RF: 0 insulin degludec 200 UNIT/ML insulin pen 15 unit SQ DAILY RF: 0 aspirin 81 MG tablet 81 mg PO DAILY Qty: 0 RF: 0 carvedilol [Coreg] 25 mg tablet 12.5 mg PO BID RF: 0 hydralazine 100 mg Tablet 100 mg PO TID RF: 0 sodium bicarbonate 650 mg tablet 650 mg PO BID RF: 0 ondansetron 4 mg tablet,disintegrating 4 mg PO Q8H PRN PRN (Reason: Nausea) Qty: 10 RF: 0 ferrous sulfate [FeroSul] 325 mg (65 mg iron) tablet 325 mg PO DAILY RF: 0 amlodipine [Norvasc] 10 mg tablet 10 mg PO DAILY RF: 0 guanfacine 1 mg tablet 1 mg PO DAILY RF: 0 cholecalciferol (vitamin D3) 1,250 mcg (50,000 unit) capsule 1,250 mcg PO DAILY RF: 0 cyanocobalamin (vitamin B-12) 1,000 mcg capsule 1,000 mcg PO DAILY RF: 0 tamsulosin [Flomax] 0.4 mg capsule 0.4 mg PO DAILY Qty: 30 RF: 0 Discontinued furosemide [Lasix] 40 mg Tablet 40 mg PO BID RF: 0 Referrals / Follow Up: Gene Miller MD [Primary Care Provider] - Disposition Disposition (needs filled in before D/C Order can be placed): Long Term Facility Documented by User: Dr. Tressa Sanford DO 04/28/21 18:14 Providers Date of Admission: 04/20/21 Reason For Visit: CHF EXAC Medications at Discharge Home Medications nitroglycerin 0.4 mg SUBLINGUAL Q5M PRN 06/30/15 insulin degludec 15 unit SQ DAILY 02/20/17 aspirin 81 mg PO DAILY #0 07/09/18 amlodipine 10 mg tablet 10 mg PO DAILY 02/10/20 cholecalciferol (vitamin D3) 1,250 mcg (50,000 unit) capsule 1,250 mcg PO DAILY 02/10/20 cyanocobalamin (vitamin B-12) 1,000 mcg capsule 1,000 mcg PO DAILY 02/10/20 guanfacine 1 mg tablet 1 mg PO DAILY 02/10/20 carvedilol [Coreg] 12.5 mg PO BID 11/20/20 hydralazine 100 mg PO TID 02/27/21 sodium bicarbonate 650 mg PO BID 02/27/21 atorvastatin 80 mg tablet 80 mg PO QHS #90 tab 03/25/21 ranolazine 500 mg tablet,extended release,12 hr 500 mg PO BID #60 tab 03/25/21 ondansetron 4 mg PO Q8H PRN PRN #10 tab 04/06/21 ferrous sulfate [FeroSul] 325 mg PO DAILY 04/20/21 tamsulosin 0.4 mg capsule 0.4 mg PO DAILY #30 cap 04/20/21 calcium acetate 667 mg PO TID #90 tab 04/28/21 hydralazine 50 mg PO BID #60 tab 04/28/21 isosorbide dinitrate 10 mg PO TID #90 tab 04/28/21 Hospital Course Procedures Dialysis Summary of Care Provided Minutes Spent on Discharge: 35 Hospital Course: This patient was seen in conjunction with GILSON Caceres. Please see below for any addendum the above. The following is representation my independent history and feels examination. Assessment: Acute hypoxic respiratory failure secondary to decompensated diastolic heart failure and CKD Chronic diastolic heart failure CKD stage V Hyperkalemia-resolved with dialysis Thrombocytopenia-stable Acute on chronic anemia-stable DM-2 Debility CAD Hypertension BPH Remote history of DVT History of GERD Hyperlipidemia Obesity KATJA Depression History of tobacco abuse Plan: -Wean oxygen as able--> patient remains on 3 L -Dialysis per nephrology -Hemoglobin with slight trend down -Hemoglobin and hematocrit have stabilized -Check Hemoccult stool--> per patient he had one 2 weeks ago and was negative--> still on collected -Transfuse for hemoglobin less than 7 -No signs of acute bleeding -Platelets are stable today 132,000 -Continue to hold heparin products -HIT antibody remains pending--> will monitor lab work for result -SCDs for DVT prophylaxis -Hyperkalemia fluctuates with dialysis days--> relatively stable -Precertification has been obtained and will discharge to [facility] today after dialysis. ABG / Lab / Microbiology Data Result Diagrams: 04/28/21 06:00 04/28/21 06:00 Discharge Plan Admission Admit Date/Time: 04/20/21 20:28 Primary Reason for Your Visit: Shortness of breath Attending Provider: Tressa Sanford Primary Care Provider: Gene Miller Consulting Providers: Kandis Sanford Discharge Orders/Prescriptions Prescriptions: New hydralazine 50 mg tablet 50 mg PO BID Qty: 60 RF: 0 calcium acetate 667 mg tablet 667 mg PO TID Qty: 90 RF: 0 isosorbide dinitrate 10 mg tablet 10 mg PO TID Qty: 90 RF: 0 Continued ranolazine [Ranexa] 500 mg tablet extended release 12 hr 500 mg PO BID Qty: 60 RF: 11 atorvastatin 80 mg tablet 80 mg PO QHS Qty: 90 RF: 3 Hold Instructions: Pt is also on Ranexa nitroglycerin 0.4 MG tablet 0.4 mg SUBLINGUAL Q5M PRN (Reason: Chest Pain) RF: 0 insulin degludec 200 UNIT/ML insulin pen 15 unit SQ DAILY RF: 0 aspirin 81 MG tablet 81 mg PO DAILY Qty: 0 RF: 0 carvedilol [Coreg] 25 mg tablet 12.5 mg PO BID RF: 0 hydralazine 100 mg Tablet 100 mg PO TID RF: 0 sodium bicarbonate 650 mg tablet 650 mg PO BID RF: 0 ondansetron 4 mg tablet,disintegrating 4 mg PO Q8H PRN PRN (Reason: Nausea) Qty: 10 RF: 0 ferrous sulfate [FeroSul] 325 mg (65 mg iron) tablet 325 mg PO DAILY RF: 0 amlodipine [Norvasc] 10 mg tablet 10 mg PO DAILY RF: 0 guanfacine 1 mg tablet 1 mg PO DAILY RF: 0 cholecalciferol (vitamin D3) 1,250 mcg (50,000 unit) capsule 1,250 mcg PO DAILY RF: 0 cyanocobalamin (vitamin B-12) 1,000 mcg capsule 1,000 mcg PO DAILY RF: 0 tamsulosin [Flomax] 0.4 mg capsule 0.4 mg PO DAILY Qty: 30 RF: 0 Discontinued furosemide [Lasix] 40 mg Tablet 40 mg PO BID RF: 0 Referrals / Follow Up: Gene Miller MD [Primary Care Provider] - Disposition Disposition (needs filled in before D/C Order can be placed): Long Term Facility Charges/Coding Visit Charges Inpatient E&M: 60279 SNF Disch >30 Min
--- NOTE | 2021-04-28 18:43 | NURSING ---
report called to ajrocho at [facility], #[phone], no further questions, plans to dc after dialysis
--- NOTE | 2021-04-28 21:51 | DIALYSIS ---
Hemodialysis completed early after 3 hours d/t transport [facility] [id number] fluid removed. Pt had bruising on medial side AVF fistula prior to starting treatment and prior to inserting dialysis needles. Poor flow rates during first hour of treatment d/t arterial and venous pressures. Venous needle pulled and new one inserted higher, after treatment was resumed, better venous pressures, however arterial pressures still fluctuated between -40 and -70 with blood flow rate of 300. Pt tolerated treatment well. Stasis was obtained after treatment completed and needles removed. AVF remains positive for thrill and bruit. Dr. Sanford updated.
--- NOTE | 2021-04-29 10:16 | CASEMGMT ---
Patient did get approval after DANITZA left for the day. DANITZA called [employer] and told her about the transportation DANITZA set up. DANITZA told her patient must be ready by 530a as the company truck driver will only wait 5 minutes. DANITZA told [facility] patient will need to call [facility] for his transportation back to [facility]. DANITZA gave her the phone number SW called for transport. Sasha Olivas [employer] SOFTWARE DEVELOPER TANI
== END 2021-04-28 21:30 | disposition skilled nursing facility (03) | DRG 291 ==
LOC: ED 19:59 → PCU 20:40
PROVIDERS: Internal Medicine; Internal Medicine Nephrology; Nurse Practitioner Family; Admitting Provider Internal Medicine; Emergency Provider Student in an Organized Health Care Education/Training Program; PCP Family Medicine; Visit Provider Internal Medicine
DX: I13.2 Hypertensive heart and chronic kidney disease with heart failure and with stage 5 chronic kidney disease, or end stage renal disease (principal); N18.6 End stage renal disease; I50.33 Acute on chronic diastolic (congestive) heart failure; J96.01 Acute respiratory failure with hypoxia; E87.2 Acidosis; E11.22 Type 2 diabetes mellitus with diabetic chronic kidney disease; D63.1 Anemia in chronic kidney disease; D69.6 Thrombocytopenia, unspecified; D50.0 Iron deficiency anemia secondary to blood loss (chronic); E87.5 Hyperkalemia; R53.81 Other malaise; E78.5 Hyperlipidemia, unspecified; E66.01 Morbid (severe) obesity due to excess calories; I25.10 Atherosclerotic heart disease of native coronary artery without angina pectoris; Z87.891 Personal history of nicotine dependence; Z95.5 Presence of coronary angioplasty implant and graft; Z86.718 Personal history of other venous thrombosis and embolism; Z68.37 Body mass index [BMI] 37.0-37.9, adult; Z99.2 Dependence on renal dialysis; Z79.4 Long term (current) use of insulin; Z79.899 Other long term (current) drug therapy
CPT/HCPCS: 36415; 71045; 78582; 80048; 80061; 80069; 81050; 82575; 82962; 83540; 83550; 83735; 83880; 84100; 84443; 84484; 85014; 85018; 85025; 85379; 86850; 86900; 86901; 86920; 86922; 87340; 87426; 90937; 93005; 93970; 94667; 94668; 97110; 97162; 97166; 97530; 97535; 99285; A9540; A9567; J7030; J7040; P9016; A4216; G0257; J1940; J2916; Q5106

== ENCOUNTER → 2021-04-29 04:00 | Outpatient (REF) | payer MEDICARE, MEDICAID, SELFPAY ==
[2021-04-29 09:19] LABS: Hematocrit 26.5 % (40-54); Mean Corp Hgb Conc 30.2 g/dL (32-36); Mean Corpuscular Volume 89.5 fL (80-94); Platelet Count 113 K/mm3 (150-450); RBC Distribution Width CV 13.7 % (11.6-14.6); RBC Distribution Width SD 44.6 fl (35.1-43.9); Red Blood Count 2.96 M/mm3 (4.6-6.2); White Blood Count 5.9 K/mm3 (4.4-11.0)
[2021-04-29 09:47] LABS: Vitamin B12 608 pg/mL (211-911)
[2021-04-29 09:49] LABS: Anion Gap 6 (5-15); BUN 41 mg/dL (7-18); BUN/Creat Ratio 10.6 RATIO (10-20); Calcium,Total 8.1 mg/dL (8.5-10.1); Chloride 100 mmol/L (98-107); Cholesterol 59 mg/dL (200); Creatinine, Serum 3.88 mg/dL (0.70-1.30); EST Glomerular Filtration Rate 17 mL/min (>60); Est Glom Filt Rate - Afr Amer 20 mL/min (>60); Glucose 119 mg/dL (74-106); High Density Lipoprotein 26 mg/dL; Magnesium 2.4 mg/dL (1.6-2.6); Phosphorus 3.6 mg/dL (2.5-4.9); Potassium 4.6 mmol/L (3.5-5.1); Sodium Level 137 mmol/L (136-145); Thyroid Stim Hormone (TSH) 1.66 uIU/mL (0.358-3.74); Triglycerides 100 mg/dL; Very Low Density Lipoprotein 20 mg/dL (5-40)
== END ==
LOC: OLS.SW300 04:00
PROVIDERS: PCP Family Medicine; Referring Provider Internal Medicine; Visit Provider Internal Medicine
DX: E11.22 Type 2 diabetes mellitus with diabetic chronic kidney disease (principal); I12.9 Hypertensive chronic kidney disease with stage 1 through stage 4 chronic kidney disease, or unspecified chronic kidney disease; N18.6 End stage renal disease
CPT/HCPCS: 36415; 80048; 80061; 82607; 83036; 83735; 84100; 84443; 85027

== ENCOUNTER 2021-06-27 12:15 | Outpatient (CLI) | payer MEDICARE, MEDICAID, SELFPAY ==
[2021-06-27 14:53] LABS: Absolute Lymphocyte Count 0.86 X10^3/uL (0.83-4.51); Absolute Neutrophil Count 4.7 X10^3/uL (2.0-7.7); Basophil# 0.05 X10^3/uL; Basophil% 0.7 % (0-1); Eosinophil# 0.22 X10^3/uL; Eosinophils% 3.3 % (0-5); Hematocrit 32.3 % (40-54); Hemoglobin 10.2 g/dL (13.0-16.5); Lymphocyte # 0.86 X10^3/ul (0.83-4.51); Lymphocyte % 12.7 % (19-41); Mean Corp Hgb Conc 31.6 g/dL (32-36); Mean Corpuscular Hgb 27.5 pg (27.0-32.0); Mean Corpuscular Volume 87.1 fL (80-94); Mean Platelet Vol. 11.5 fl (6.2-12.0); Monocyte% 13.3 % (0-10); NRBC Flagged by Analyzer 0 % (0-5); Neutrophil # 4.68 X10^3/uL (2.7-7.7); Neutrophil % 69.4 % (47-70); Platelet Count 173 K/mm3 (150-450); RBC Distribution Width CV 15.5 % (11.6-14.6); RBC Distribution Width SD 49.5 fl (35.1-43.9); Red Blood Count 3.71 M/mm3 (4.6-6.2); White Blood Count 6.8 K/mm3 (4.4-11.0)
[2021-06-27 15:12] LABS: ALB/GLOB Ratio 0.8 RATIO (0.9-2.4); AST(SGOT) 18 U/L (15-37); Alanine Aminotransfer ALT/SGPT 33 U/L (16-61); Albumin, Serum 3.2 g/dL (3.2-5.0); Alkaline Phosphatase 130 U/L (45-117); Anion Gap 6 (5-15); BUN 57 mg/dL (7-18); BUN/Creat Ratio 11.4 RATIO (10-20); Calcium,Total 8.3 mg/dL (8.5-10.1); Chloride 101 mmol/L (98-107); Cholesterol 100 mg/dL (200); Creatinine, Serum 4.99 mg/dL (0.70-1.30); EST Glomerular Filtration Rate 12 mL/min (>60); Est Glom Filt Rate - Afr Amer 15 mL/min (>60); Glucose 187 mg/dL (74-106); High Density Lipoprotein 35 mg/dL; Potassium 4.4 mmol/L (3.5-5.1); Protein, Total 7.2 g/dL (6.4-8.2); Sodium Level 136 mmol/L (136-145); Triglycerides 88 mg/dL; Very Low Density Lipoprotein 18 mg/dL (5-40)
[2021-06-27 15:15] LABS: Vitamin B12 1528 pg/mL (211-911)
[2021-06-27 15:18] LABS: Hemoglobin A1c 6.7 % (3.8-5.6)
[2021-06-28 08:25] LABS: PTHIN 276.1 pg/mL (18.4-80.1)
[2021-06-29 18:16] LABS: Vitamin D 1,25-Dihydroxy 8.2 pg/mL (19.9-79.3)
[2021-07-07 16:56] LABS: VITAMIN B6 46.7 ug/L (5.3-46.7)
[2021-07-08 18:39] LABS: Vitamin B1, Thiamine 137.2 nmol/L (66.5-200.0)
== END 2021-06-27 23:59 | disposition home or self-care (01) ==
LOC: MFPLAB 12:17
PROVIDERS: PCP Family Medicine; Visit Provider Family Medicine
DX: E11.65 Type 2 diabetes mellitus with hyperglycemia (principal); E11.22 Type 2 diabetes mellitus with diabetic chronic kidney disease; N18.6 End stage renal disease; E21.3 Hyperparathyroidism, unspecified; E53.9 Vitamin B deficiency, unspecified
CPT/HCPCS: 36415; 80053; 80061; 82607; 82652; 83036; 83970; 84207; 84425; 85025

== ENCOUNTER 2021-06-30 11:04 | Observation (INO) | payer MEDICARE, MEDICAID, SELFPAY ==
[2021-06-30] VITALS (11 sets, daily range): BP systolic 133–170; BP diastolic 71–81; PULSE 79–87; RESP 8–23; TEMP 36.2–36.6; O2SAT 93–98; BMI 33.1; BMI 33.5
--- NOTE | 2021-06-30 11:27 | RAD_ITS ---
STUDY: X-RAY CHEST REASON FOR EXAM: Male, 65 years old. Chest pain. Patient is on dialysis. TECHNIQUE: Single AP portable view of the chest. COMPARISON: Comparison is made with prior study 04/20/2021. FINDINGS: EKG lead are seen. Blunting of both concerning angles. Mild degree of increased markings at the lung bases slightly worse on the left side suggestive of atelectasis. Vascular congestion. There is moderate cardiac enlargement. Normal mediastinum and lydia. Normal visualized pulmonary arteries. There is atherosclerotic calcification of the aortic arch with tortuosity. There are diffuse degenerative changes of the visualized thoracic spine. Normal visualized ribs, clavicles, and shoulders. There is no demonstrated abnormality of the visualized soft tissue structures of the upper abdomen. RAD/Chest 1 View (Portable) IMPRESSION: Gastric congestion and mild CHF with bibasilar atelectasis and blunting of both costophrenic angles. Electronically Signed: Rigo Liriano MD at 11:52 EST ,
--- NOTE | 2021-06-30 11:27 | EKG12_ITS ---
Test Reason : CP Blood Pressure : / mmHG Vent. Rate : 084 BPM Atrial Rate : 084 BPM P-R Int : 234 ms QRS Dur : 102 ms QT Int : 422 ms P-R-T Axes : 039 000 041 degrees QTc Int : 498 ms Sinus rhythm with 1st degree A-V block Prolonged QT Abnormal ECG Confirmed by JOSUE CASILLAS, TALITA ([id number]), slot editor MAYNOR TREVIZO ([id number]) on 07/01/2021 11:04:12 AM Referred By: ASHUTOSH Confirmed By:TALITA SALAS MD
--- NOTE | 2021-06-30 11:29 | EDS_ITS ---
HPI History of Present Illness Chief Complaint: Chest Pain Informant: patient Onset/Context/Timing Onset: Today Activity at onset: sudden Timing: Continuous Quality: Positive for Pressure Location: Substernal Worsened By: Exertion Relieved By: Nothing Associated Symptoms: Positive for Diaphoresis, Dyspnea, Cough, Lightheadedness and Palpitations; Negative for Nausea, Vomiting, Fever and Acid Reflux Narrative Narrative: Presents with chest pain that began today while he was at dialysis. Patient states it began rather suddenly. Patient states it felt like a pressure over the substernal area. Patient states it seems to be worse with activity. Patient states nothing makes it better. Patient denies any nausea or vomiting. Patient does admit to some shortness of breath and diaphoresis. Patient also admits to a slight cough. Patient states he has intermittent palpitations where he can feel his heart beating. Patient also admits to some intermittent lightheadedness. CVD Risk Factors: Positive for Hypertension and Diabetes; Negative for Hypercholesterolemia, Family History 1' </=55 and Smoking PE Risk Factors: Positive for Prior DVT or PE; Negative for Recent Travel/Surgery, Recent Immobilization, Cancer and OCP + Smoking + >/=35 PFSH PFSH Medical History (HFpEF) heart failure with preserved ejection fraction Ambulates with cane Anemia Atherosclerotic heart disease of [place] coronary artery without angina pectoris CAD (coronary artery disease) Cardiology follow-up encounter CHF exacerbation Chronic anemia Chronic cough Chronic kidney disease (CKD) Chronic pain CKD stage 4 due to type 2 diabetes mellitus CKD stage 5 due to type 2 diabetes mellitus Debility Depression Depression Diabetes Diabetes mellitus type 2, insulin dependent Dialysis patient DVT (deep venous thrombosis) DVT of lower extremity (deep venous thrombosis) (09/2018) Dyspnea on minimal exertion ESRD (end stage renal disease) on dialysis Essential (primary) hypertension Former smoker Gastric reflux Hemodialysis access site with arteriovenous graft High cholesterol History of echocardiogram History of edema History of meniscal tear History of renal disease History of stress test Hyperlipidemia Hypertension Insulin dependent diabetes mellitus Iron deficiency anemia Iron deficiency anemia Kidney disease Nephrotic syndrome Obesity (BMI 30.0-34.9) Old inferior wall myocardial infarction Problem with dialysis access Scarlet fever Shortness of breath Sleep apnea Tear of lateral meniscus of left knee Tear of medial meniscus of left knee TIA (transient ischemic attack) (09/19/18) Type 2 diabetes mellitus Vitreous hemorrhage, bilateral Home Medications nitroglycerin 0.4 mg SUBLINGUAL Q5M PRN 06/30/15 [History Last Taken 09/30/17 0.4 MG] aspirin 81 mg PO DAILY #0 07/09/18 [Rx Last Taken 06/29/21] cholecalciferol (vitamin D3) 1,250 mcg (50,000 unit) capsule 1,250 mcg PO WE@0700 02/10/20 [History Last Taken 06/29/21] cyanocobalamin (vitamin B-12) 1,000 mcg capsule 1,000 mcg PO DAILY 02/10/20 [History Last Taken Unknown] guanfacine 1 mg tablet 1 mg PO DAILY 02/10/20 [History Last Taken Unknown] sodium bicarbonate 650 mg PO BID 02/27/21 [History Last Taken Unknown] atorvastatin 80 mg tablet 80 mg PO QHS #90 tab 03/25/21 [Rx Last Taken Unknown] ranolazine 500 mg tablet,extended release,12 hr 500 mg PO BID #60 tab 03/25/21 [Rx Last Taken 06/29/21] ondansetron 4 mg PO Q8H PRN PRN #10 tab 04/06/21 [Rx Last Taken Unknown] ferrous sulfate [FeroSul] 325 mg PO DAILY 04/20/21 [History Last Taken 06/29/21] tamsulosin 0.4 mg capsule 0.4 mg PO DAILY #30 cap 04/20/21 [Rx Last Taken Unknown] isosorbide dinitrate 10 mg PO TID #90 tab 04/28/21 [Rx Last Taken Unknown] amlodipine 10 mg PO DAILY 06/30/21 [History Last Taken 06/29/21] calcium acetate 667 mg PO TID 06/30/21 [History Last Taken Unknown] carvedilol 12.5 mg PO BID@0900,2100 06/30/21 [History Last Taken 06/29/21] furosemide 40 mg PO DAILY 06/30/21 [History Last Taken 06/29/21] hydralazine 100 mg PO TID@0900,1300,2100 06/30/21 [History Last Taken 06/29/21] Allergy/AdvReac Type Severity Reaction Status Date / Time escitalopram [From Lexapro] Allergy Unknown Verified 06/30/21 11:10 sertraline [From Zoloft] Allergy Unknown Verified 06/30/21 11:10 lisinopril AdvReac Severe Cough Verified 06/30/21 11:10 Family History Father blood clot Sister CVA (cerebral vascular accident) Mother Diabetes Surgical History H/O abdominal surgery History of arteriovenostomy for renal dialysis (~01/2021) History of cardiac catheterization History of coronary artery stent placement (06/17/15) Hx of hernia repair Social History household members: friend(s) number of children: 2 current occupational status: retired Smoking Status: Former smoker alcohol intake: current alcohol intake frequency: a few times a week Alcohol type: beer substance use type: does not use caffeine: Yes Type: coffee Number of servings: 3 what type of physical activity do you participate in: none seatbelt use: always do you feel safe at home: Yes additional social history: estranged from children ROS ROS ED Constitutional Constitutional ED: Denies chills or fever(s) Eyes Eyes: Reports blurry vision left; Denies diplopia ENT ENT ED: Denies rhinorrhea or sore throat Cardiovascular Cardiovascular: Reports chest pain and palpitations Respiratory/Chest Respiratory/Chest: Reports cough and dyspnea Gastrointestinal Gastrointestinal: Reports diarrhea; Denies abdominal pain, nausea or vomiting Genitourinary Genitourinary ED: Denies dysuria or hematuria Musculoskeletal Musculoskeletal: Reports back pain and neck pain Integumentary Denies abscess or rash Neurologic Neurologic: Reports headache(s); Denies weakness Allergic/Immunologic Allergic/Immunologic ED: Denies mouth swelling or urticaria EXAM Physical Exam Const Vital Signs: 06/30/21 11:05 06/30/21 11:12 06/30/21 11:33 Temperature 97.9 F Temperature Source Oral Pulse Rate 87 Respiratory Rate 8 L Respiratory Effort Normal Non-Labored Blood Pressure 160/71 H Blood Pressure Mean 100 Pulse Ox 93 95 Oxygen Delivery Method Room Air Room Air 06/30/21 12:50 06/30/21 13:29 Temperature Temperature Source Pulse Rate 85 81 Respiratory Rate 13 16 Respiratory Effort Blood Pressure 156/72 H Blood Pressure Mean 100 Pulse Ox 95 95 Oxygen Delivery Method Room Air Room Air Positive well nourished, well developed and obese General Appearance ED: well developed Nutritional Appearance: obese HEENT normocephalic and atraumatic Eyes PERRL and EOMs intact bilaterally Neck supple and no JVD Chest Wall palpation of chest normal Resp normal respiratory effort and clear to auscultation bilaterally Effort and Inspection: Negative for respiratory distress Cardio regular rate, regular rhythm and no murmurs GI normal to inspection, nondistended, normoactive bowel sounds, soft to palpation, non-tender and non-distended Extremity normal to inspection General Extremety ED: Negative for edema or tenderness General Extremity: Negative for edema Neuro oriented x3, CN's II-XII intact bilaterally and no sensory deficits noted Sensorium / Orientation: awake and alert Motor Exam: strength 5/5 throughout Psych mental status grossly normal MDM MDM MDM Narrative Medical decision making narrative: EKG was obtained. On my interpretation, there is a normal sinus rhythm with a first-degree AV block with a rate of 84. [place] interval was prolonged at 234. QRS interval was normal. QTc interval was 498. [place] was normal. There are no acute ST or T wave changes. CBC shows a mild anemia with a hemoglobin of 10.4 hematocrit 32.3. D-dimer was elevated at 1.33. Basic metabolic profile was obtained. BUN was 20 and creatinine was 2.63. Patient is on dialysis. High-sensitivity troponin was normal at 30. 2- hour repeat high-sensitivity troponin was normal at 26. Portable 1 view chest x-ray was obtained. On my interpretation, lung nicolas showed mild congestive heart failure. There is normal cardiac silhouette. Bony thorax is normal. Radiologist also interpreted the x-ray and agrees. Because of the elevated D- dimer, CTA of the chest was obtained. There is no evidence of pulmonary embolism or aortic dissection. There are stable pulmonary nodules. This was interpreted by the radiologist and reviewed by myself. Patient states he still has some intermittent discomfort in his chest. Because of this, case was discussed with the hospitalist. Patient will be admitted for observation. Patient understood and was agreeable with the plan. All questions were answered. Lab Data Attestation: I reviewed the patient's lab results. Labs: Laboratory Results - last 24 hr 06/30/21 06/30/21 06/30/21 11:15 11:15 11:15 WBC 6.6 RBC 3.72 L Hgb 10.4 L Hct 32.3 L MCV 86.8 MCH 28.0 MCHC 32.2 RDW Std Deviation 48.6 H RDW Coeff of Lina 15.3 H Plt Count 158 MPV 10.4 Immature Gran % (Auto) 0.300 Neut % (Auto) 66.5 Lymph % (Auto) 14.5 L [place] % (Auto) 14.5 H Eos % (Auto) 3.6 Baso % (Auto) 0.6 Absolute Neuts (auto) 4.4 Absolute Lymphs (auto) 0.96 Nucleated RBC % 0 D-Dimer Quant (PE/DVT) 1.33 H* Sodium 139 Potassium 3.5 Chloride 100 Carbon Dioxide 34.0 H Anion Gap 5 BUN 20 H Creatinine 2.63 H Estim Creat Clear Calc 28.00 Est GFR (MDRD) Af Amer 32 L Est GFR (MDRD) Non-Af 26 L BUN/Creatinine Ratio 7.6 L Glucose 116 H Calcium 8.1 L Troponin I High Sens 30 06/30/21 13:28 WBC RBC Hgb Hct MCV MCH MCHC RDW Std Deviation RDW Coeff of Lina Plt Count MPV Immature Gran % (Auto) Neut % (Auto) Lymph % (Auto) [place] % (Auto) Eos % (Auto) Baso % (Auto) Absolute Neuts (auto) Absolute Lymphs (auto) Nucleated RBC % D-Dimer Quant (PE/DVT) Sodium Potassium Chloride Carbon Dioxide Anion Gap BUN Creatinine Estim Creat Clear Calc Est GFR (MDRD) Af Amer Est GFR (MDRD) Non-Af BUN/Creatinine Ratio Glucose Calcium Troponin I High Sens 26 Radiography Chest X-Ray - ED: 1 View, Read by ED Physician, Read by Radiologist and CHF (Mild) Diagnostic Testing: Clinical Impression(s) from Imaging Studies Chest X-Ray 06/30/21 11:27 IMPRESSION: Gastric congestion and mild CHF with bibasilar atelectasis and blunting of both costophrenic angles. Electronically Signed: Rigo Liriano MD at 11:52 EST , Chest CTA 06/30/21 12:44 IMPRESSION: 1. No CTA evidence of pulmonary thromboemboli, thoracic aortic aneurysm or dissection. 2. Moderate bilateral posterior pleural fluid with compressive atelectases of the posterior lower lobes. 3. 10 mm noncalcified and indeterminate pulmonary nodule in the left anterior lobe (series 602, image 277; series 2, images 90; series 601, image 140). This is unchanged. Fleischner Society Guidelines (MacMahon, et al. Radiology 2017; 284(1):228-43) suggest no follow-up is necessary for patients with low or high risk of malignancy. 4. 4.6 mm noncalcified and indeterminate pulmonary nodule in the right middle lobe underneath the minor fissure (series 2, images 103; series 602, image 97). This is unchanged. Fleischner Society Guidelines (MacMahon, et al. Radiology 2017; 284(1):228-43) suggest that no further follow-up is necessary for patients with low or high risk of malignancy. Electronically Signed: Wlalace Man MD at 13:46 EST , EKG Initial EKG: Attestation: I personally reviewed and interpreted this EKG as follows: Interpretation: Sinus Rhythm (84 with first-degree AV block) and No Acute Injury Pattern Treatment and Re-Evaluation Vital Sign Attestation:: Vital signs were reviewed prior to admission. Patient blood pressure is mildly elevated but other vital signs were stable. Discharge Plan Dx/Rx/DC Orders Clinical Impression: Chest pain Disposition Disposition: Acute Care Hospital [facility] Discharge Date/Time: 06/30/21 15:11
[2021-06-30 11:42] LABS: Absolute Lymphocyte Count 0.96 X10^3/uL (0.83-4.51); Absolute Neutrophil Count 4.4 X10^3/uL (2.0-7.7); Basophil# 0.04 X10^3/uL; Basophil% 0.6 % (0-1); Eosinophil# 0.24 X10^3/uL; Eosinophils% 3.6 % (0-5); Hematocrit 32.3 % (40-54); Hemoglobin 10.4 g/dL (13.0-16.5); Lymphocyte # 0.96 X10^3/ul (0.83-4.51); Lymphocyte % 14.5 % (19-41); Mean Corp Hgb Conc 32.2 g/dL (32-36); Mean Corpuscular Volume 86.8 fL (80-94); Mean Platelet Vol. 10.4 fl (6.2-12.0); Monocyte# 0.96 X10^3/uL; Monocyte% 14.5 % (0-10); NRBC Flagged by Analyzer 0 % (0-5); Neutrophil # 4.39 X10^3/uL (2.7-7.7); Neutrophil % 66.5 % (47-70); Platelet Count 158 K/mm3 (150-450); RBC Distribution Width CV 15.3 % (11.6-14.6); RBC Distribution Width SD 48.6 fl (35.1-43.9); Red Blood Count 3.72 M/mm3 (4.6-6.2); White Blood Count 6.6 K/mm3 (4.4-11.0)
[2021-06-30 11:57] LABS: Anion Gap 5 (5-15); BUN 20 mg/dL (7-18); BUN/Creat Ratio 7.6 RATIO (10-20); Calcium,Total 8.1 mg/dL (8.5-10.1); Chloride 100 mmol/L (98-107); Creatinine, Serum 2.63 mg/dL (0.70-1.30); EST Glomerular Filtration Rate 26 mL/min (>60); Est Glom Filt Rate - Afr Amer 32 mL/min (>60); Glucose 116 mg/dL (74-106); Potassium 3.5 mmol/L (3.5-5.1); Sodium Level 139 mmol/L (136-145); Troponin-I HS 30 pg/mL (3.0-78.0)
[2021-06-30 12:42] LABS: D-Dimer Quantitative (DVT/PE) 1.33 FEU/ug/m (0.27-0.49)
--- NOTE | 2021-06-30 12:44 | CT_ITS ---
EXAM: CT ANGIOGRAPHY CHEST WITHOUT AND WITH INTRAVENOUS CONTRAST CLINICAL INDICATION: Elevated D-dimer TECHNIQUE: Helically acquired angiography images were obtained of the chest without and with intravenous contrast. This CT exam was performed using one or more of the following dose reduction techniques: automated exposure control, adjustment of the mA and/or kV according to patient size, and/or use of iterative reconstruction technique. This report was created using [employer] report generation technology. MIP reconstructed images were created and reviewed. CONTRAST: IV 100mL [id number] COMPARISON: CT chest without contrast 03/03/2019. FINDINGS: PULMONARY ARTERIES: Unremarkable. Normal in caliber. No evidence of pulmonary embolism. AORTA: Unremarkable. Normal in caliber. No evidence of dissection. GREAT VESSELS OF AORTIC ARCH: Unremarkable. Normal in caliber. No evidence of dissection. LUNGS AND PLEURAL SPACES: Moderate bilateral pleural fluid with compressive atelectases of the posterior lower lobes. 4.6 mm noncalcified and indeterminate pulmonary nodule in the right middle lobe underneath the minor fissure (series 2, image 103; series 602, image 97). This is unchanged. 10 mm noncalcified and indeterminate pulmonary nodule in the left anterior lower lobe (series 602, image 277; series 2, image 90). This is unchanged. No pneumothorax. HEART: Unremarkable. Heart size is normal. No pericardial effusion. No signs of right heart strain, ratio of right ventricle to left ventricle measures less than 1. MEDIASTINUM: Unremarkable. No mediastinal or hilar adenopathy. Esophagus is unremarkable. No hiatal hernia. THYROID: Unremarkable. No thyroid lesions. BONES/JOINTS: Unremarkable. No suspicious lytic or blastic abnormality. CT/CTA Chest W/WO Contrast IMPRESSION: 1. No CTA evidence of pulmonary thromboemboli, thoracic aortic aneurysm or dissection. 2. Moderate bilateral posterior pleural fluid with compressive atelectases of the posterior lower lobes. 3. 10 mm noncalcified and indeterminate pulmonary nodule in the left anterior lobe (series 602, image 277; series 2, images 90; series 601, image 140). This is unchanged. Fleischner Society Guidelines (MacMahon, et al. Radiology 2017; 284(1):228-43) suggest no follow-up is necessary for patients with low or high risk of malignancy. 4. 4.6 mm noncalcified and indeterminate pulmonary nodule in the right middle lobe underneath the minor fissure (series 2, images 103; series 602, image 97). This is unchanged. Fleischner Society Guidelines (MacMahon, et al. Radiology 2017; 284(1):228-43) suggest that no further follow-up is necessary for patients with low or high risk of malignancy. Electronically Signed: Wallace Man MD at 13:46 EST ,
[2021-06-30 13:55] LABS: Troponin-I HS 26 pg/mL (3.0-78.0)
--- NOTE | 2021-06-30 15:06 | PCM.HP.STD ---
HPI - General General Date of Admission: 06/30/21 Date of Service: 06/30/21 Chief Complaint: Chest pain HPI Narrative BRI HERNANDEZ, is a 65 M who presented to the emergency department was [facility] on 06/30/2021 with chief complaint of chest pain. The patient states he was at dialysis this morning and at the end of his dialysis session he developed tingling all over and acute chest pain that was predominantly located in the epigastrium. It was associated with some mild shortness of breath and diaphoresis but no nausea or vomiting. There was no radiation anywhere associated with this. He states he has had intermittent pain here before but nothing this severe. His symptoms have improved but not completely resolved. He completed all but the last 15 minutes of his dialysis which he receives on Sunday and Sunday. Dr. Kandis Sanford is his computing systems mechanic. In the emergency department his vital signs were unremarkable other than some elevated blood pressure which has been difficult to regulate with his dialysis. His oxygen saturation was 95 to 98% on room air. His CBC was overall unremarkable other than a chronic stable normocytic anemia related to his end-stage renal disease. His BMP was stable and at baseline for him. Troponins were obtained given his chest pain with his first being 30 and his repeat being 26. His blood glucose on his BMP at admission was 116. His D-dimer was elevated at 1.33 and given this finding a CTA of his chest was performed which showed no PE or thromboembolic disease, moderate stable bilateral pleural effusion, a stable 10 mm noncalcified pulmonary nodule in the left anterior lobe and a 4.6 mm noncalcified nodule in the right middle lobe that is unchanged from previous imaging. His EKG shows normal sinus rhythm without any ST-T wave changes consistent with ischemia. His chest CT and review of old abdominal CTs show heterotrophic calcification in the subcutaneous tissue extending from his xiphoid process. His heart score was 5 and given his moderate risk request for admission for cardiac rule out was made. [facility] Medical History (HFpEF) heart failure with preserved ejection fraction Ambulates with cane Anemia Atherosclerotic heart disease of [place] coronary artery without angina pectoris CAD (coronary artery disease) Cardiology follow-up encounter CHF exacerbation Chronic anemia Chronic cough Chronic kidney disease (CKD) Chronic pain CKD stage 4 due to type 2 diabetes mellitus CKD stage 5 due to type 2 diabetes mellitus Debility Depression Depression Diabetes Diabetes mellitus type 2, insulin dependent Dialysis patient DVT (deep venous thrombosis) DVT of lower extremity (deep venous thrombosis) (09/2018) Dyspnea on minimal exertion ESRD (end stage renal disease) on dialysis Essential (primary) hypertension Former smoker Gastric reflux Hemodialysis access site with arteriovenous graft High cholesterol History of echocardiogram History of edema History of meniscal tear History of renal disease History of stress test Hyperlipidemia Hypertension Insulin dependent diabetes mellitus Iron deficiency anemia Iron deficiency anemia Kidney disease Nephrotic syndrome Obesity (BMI 30.0-34.9) Old inferior wall myocardial infarction Problem with dialysis access Scarlet fever Shortness of breath Sleep apnea Tear of lateral meniscus of left knee Tear of medial meniscus of left knee TIA (transient ischemic attack) (09/19/18) Type 2 diabetes mellitus Vitreous hemorrhage, bilateral Home Medications nitroglycerin 0.4 mg SUBLINGUAL Q5M PRN 06/30/15 [History Last Taken 09/30/17 0.4 MG] insulin degludec 10 unit SQ DAILY 02/20/17 [History Last Taken 10/15/18 07:15] aspirin 81 mg PO DAILY #0 07/09/18 [Rx Last Taken 10/15/18 07:00] cholecalciferol (vitamin D3) 1,250 mcg (50,000 unit) capsule 1,250 mcg PO DAILY 02/10/20 [History Last Taken 11/15/20] cyanocobalamin (vitamin B-12) 1,000 mcg capsule 1,000 mcg PO DAILY 02/10/20 [History Last Taken Unknown] guanfacine 1 mg tablet 1 mg PO DAILY 02/10/20 [History Last Taken Unknown] carvedilol [Coreg] 12.5 mg PO BID 11/20/20 [History Last Taken 01/21/21 07:45] hydralazine 50 mg PO BID 02/27/21 [History Last Taken Unknown] sodium bicarbonate 650 mg PO BID 02/27/21 [History Last Taken Unknown] atorvastatin 80 mg tablet 80 mg PO QHS #90 tab 03/25/21 [Rx Last Taken Unknown] ranolazine 500 mg tablet,extended release,12 hr 500 mg PO BID #60 tab 03/25/21 [Rx Last Taken Unknown] ondansetron 4 mg PO Q8H PRN PRN #10 tab 04/06/21 [Rx Last Taken Unknown] ferrous sulfate [FeroSul] 325 mg PO DAILY 04/20/21 [History Last Taken Unknown] tamsulosin 0.4 mg capsule 0.4 mg PO DAILY #30 cap 04/20/21 [Rx Last Taken Unknown] isosorbide dinitrate 10 mg PO TID #90 tab 04/28/21 [Rx Last Taken Unknown] calcium acetate 667 mg PO TID 06/30/21 [History Last Taken Unknown] Allergy/AdvReac Type Severity Reaction Status Date / Time escitalopram [From Lexapro] Allergy Unknown Verified 06/30/21 11:10 sertraline [From Zoloft] Allergy Unknown Verified 06/30/21 11:10 lisinopril AdvReac Severe Cough Verified 06/30/21 11:10 Family History Father blood clot Sister CVA (cerebral vascular accident) Mother Diabetes Surgical History H/O abdominal surgery History of arteriovenostomy for renal dialysis (~01/2021) History of cardiac catheterization History of coronary artery stent placement (06/17/15) Hx of hernia repair Social History household members: friend(s) number of children: 2 current occupational status: retired Smoking Status: Former smoker alcohol intake: current alcohol intake frequency: a few times a week Alcohol type: beer substance use type: does not use caffeine: Yes Type: coffee Number of servings: 3 what type of physical activity do you participate in: none seatbelt use: always do you feel safe at home: Yes additional social history: estranged from children ROS Constitutional Constitutional: Denies anorexia, change in weight, chills, fatigue, fever(s), malaise, night sweats, weakness or other Eyes Eyes: Denies blurry vision, change in eye color, change in vision, discharge from eye(s), double vision, erythema, eye pain, loss of vision or other ENT HEENT: Denies abnormal hearing, dysphagia, ear pain, epistaxis, headache(s), hearing loss, nasal congestion, nasal discharge, post nasal drip, sinus pressure, sore throat or other Cardiovascular Cardiovascular: Reports chest pain and edema; Denies claudication, dyspnea on exertion, lightheadedness, orthopnea, palpitations, paroxysmal nocturnal dyspnea, rapid heart rate, syncope or other Respiratory/Chest Respiratory/Chest: Reports dyspnea; Denies cough, excessive phlegm production, hemoptysis, productive cough, shortness of breath at rest, shortness of breath with exertion, wheezing or other Gastrointestinal Gastrointestinal: Denies abdominal pain, coffee ground emesis, constipation, diarrhea, dyspepsia, hematemesis, hematochezia, loose stools, melena, nausea, vomiting or other Genitourinary Genitourinary: Denies burning urination, difficulty urinating, dysuria, hematuria, nocturia, urinary frequency, urinary hesitancy, urinary incontinence, urinary urgency or other Musculoskeletal Musculoskeletal: Denies arthralgias, back pain, joint pain, joint stiffness, joint swelling, myalgias, neck pain or other Neurologic Neurologic: Denies abnormal gait, abnormal speech, confusion, disequilibrium, dizziness, focal weakness, headache(s), numbness, paresthesias, seizure-like activity, seizures, syncope, tingling, tremor(s) or other Psychiatric Psychiatric: Denies anxiety, depression, homicidal ideation, suicidal ideation or other Endocrine Endocrinology: Denies change in body appearance, cold intolerance, excessive sweating, heat intolerance, polydipsia, polyuria or other Hematologic/Lymphatic Hematologic/Lymphatic: Denies anemia, easy bleeding, easy bruising, lymphadenopathy or other Allergic/Immunologic Allergic/Immunologic: Denies rhinitis, hives, eczemia, asthma or other Vital Signs Vital Signs Vital Signs: 06/30/21 11:05 06/30/21 11:12 06/30/21 11:33 Temperature 97.9 F Temperature Source Oral Pulse Rate 87 Respiratory Rate 8 L Respiratory Effort Normal Non-Labored Blood Pressure 160/71 H Blood Pressure Mean 100 Pulse Ox 93 95 Oxygen Delivery Method Room Air Room Air 06/30/21 12:50 06/30/21 13:29 06/30/21 14:48 Temperature 97.6 F L Temperature Source Temporal Pulse Rate 85 81 85 Respiratory Rate 13 16 23 H Respiratory Effort Blood Pressure 156/72 H 170/78 H Blood Pressure Mean 100 108 Pulse Ox 95 95 95 Oxygen Delivery Method Room Air Room Air Room Air 06/30/21 15:04 Temperature Temperature Source Pulse Rate 83 Respiratory Rate 18 Respiratory Effort Blood Pressure 168/81 H Blood Pressure Mean 110 Pulse Ox 98 Oxygen Delivery Method Room Air Weight Weight: 101.9 kg Body Mass Index (BMI) 33.1 Physical Exam Const alert, oriented x3 and no apparent distress Constitutional Narrative: Obese older white male sitting up in bed, appears comfortable, nontoxic, nursing at bedside General Appearance: cooperative HEENT normocephalic, head/scalp atraumatic, hearing grossly normal bilaterally and moist oral mucous membranes HEENT Narrative: Mallampati 2-3, dentition is poor, no thrush Eyes PERRL, EOMs intact bilaterally and conjunctivae normal Eyes Narrative: No scleral icterus Neck no lymphadenopathy, supple, no JVD and no carotid bruits Neck Narrative: Trachea midline, no thyroid enlargement Resp normal respiratory effort, no retractions, no use of accessory muscles and clear to auscultation bilaterally Resp Narrative: Diminished at bases bilaterally but overall clear without adventitious sounds Auscultation: Negative for crackles, rales, rhonchi or wheezes Cardio regular rate, regular rhythm, S1 normal heart sound, S2 normal heart sound, no murmurs, no rub, no gallops, no clicks and no JVD GI normal to inspection, nondistended, normoactive bowel sounds, soft to palpation, non-tender and non-distended GI Narrative: Firm area extended from what appears to be the xiphoid process in the area of the epigastrium upon palpation feels bony in nature Extremity Extremity Narrative: Bilateral lower extremity edema that is pitting 1+, no cyanosis or clubbing Peripheral Pulses: Yes pulses 2+ throughout Skin no wounds, skin turgor normal, no jaundice, no petechiae and no mottling Skin Narrative: Bilateral lower extremity skin changes consistent with chronic venous stasis but no signs of infection Neuro oriented x3, CN's II-XII intact bilaterally and moves all extremities Neuro Narrative: generalized weakness Sensorium / Orientation: awake and alert Speech: speech normal Psych affect normal Results Lab / Micro Data Result Diagrams: 06/30/21 11:15 06/30/21 11:15 Labs: Laboratory Results - last 24 hr 06/30/21 11:15: WBC 6.6, RBC 3.72 L, Hgb 10.4 L, Hct 32.3 L, MCV 86.8, MCH 28.0, MCHC 32.2, RDW Std Deviation 48.6 H, RDW Coeff of Lina 15.3 H, Plt Count 158, MPV 10.4, Immature Gran % (Auto) 0.300, Neut % (Auto) 66.5, Lymph % (Auto) 14.5 L, [place] % (Auto) 14.5 H, Eos % (Auto) 3.6, Baso % (Auto) 0.6, Absolute Neuts (auto) 4.4, Absolute Lymphs (auto) 0.96, Nucleated RBC % 0 06/30/21 11:15: Sodium 139, Potassium 3.5, Chloride 100, Carbon Dioxide 34.0 H, Anion Gap 5, BUN 20 H, Creatinine 2.63 H, Estim Creat Clear Calc 28.00, Est GFR (MDRD) Af Amer 32 L, Est GFR (MDRD) Non-Af 26 L, BUN/Creatinine Ratio 7.6 L, Glucose 116 H, Calcium 8.1 L, Troponin I High Sens 30 06/30/21 11:15: D-Dimer Quant (PE/DVT) 1.33 H* 06/30/21 13:28: Troponin I High Sens 26 Micro: Microbiology 06/30/21 11:35 Nasal Secretion SARS-CoV-2 Antigen (Rapid) - Final Radiology Impression Chest X-Ray 06/30/21 11:27 IMPRESSION: Gastric congestion and mild CHF with bibasilar atelectasis and blunting of both costophrenic angles. Electronically Signed: Rigo Liriano MD at 11:52 EST , Chest CTA 06/30/21 12:44 IMPRESSION: 1. No CTA evidence of pulmonary thromboemboli, thoracic aortic aneurysm or dissection. 2. Moderate bilateral posterior pleural fluid with compressive atelectases of the posterior lower lobes. 3. 10 mm noncalcified and indeterminate pulmonary nodule in the left anterior lobe (series 602, image 277; series 2, images 90; series 601, image 140). This is unchanged. Fleischner Society Guidelines (MacMahon, et al. Radiology 2017; 284(1):228-43) suggest no follow-up is necessary for patients with low or high risk of malignancy. 4. 4.6 mm noncalcified and indeterminate pulmonary nodule in the right middle lobe underneath the minor fissure (series 2, images 103; series 602, image 97). This is unchanged. Fleischner Society Guidelines (MacMahon, et al. Radiology 2017; 284(1):228-43) suggest that no further follow-up is necessary for patients with low or high risk of malignancy. Electronically Signed: Wallace Man MD at 13:46 EST , Assessment & Plan Assessment/Plan (1) Chest pain: PLAN: Chest pain -Seems to be atypical -First 2 cardiac enzymes were negative we will continue to cycle -Check lipids -Patient had a recent hemoglobin A1c on 06/27/2021 which was found to be 6.7. -Pharmacological induced nuclear stress test tomorrow -PRN nitro -N.p.o. after midnight Chronic diastolic heart failure -Stable -Continue home cardiac medication and including her renal will seen and isosorbide dinitrate CKD stage V/ESRD -Left upper extremity fistula with thrill and bruit -Dialysis Sunday -No current need to consult nephrology unless patient is not discharged on 07/01/2021 Chronic normocytic anemia secondary to renal disease -Stable -Polo CBC in a.m. -Continue iron supplementation DM-2 -Lantus 10 units at at bedtime -Sliding scale -Accu-Cheks with meals -A1c was 6.7 on 06/27/2021 CAD -History of NSTEMI in 2016 with PCI to circumflex artery at that time -Continue aspirin -Continue Ranexa -Continue statin Hypertension -Continue carvedilol 12.5 twice daily -Continue hydralazine 50 mg p.o. twice daily next-continue isosorbide dinitrate 10 mg BPH -Patient still makes some urine -Continue Flomax Remote history of DVT -Patient is no longer anticoagulated -Monitor clinically for signs of recurrence Hyperlipidemia -Continue statin Obesity -Recommend weight loss -BMI is 33.6 KATJA -Patient is noncompliant with noninvasive ventilation at bedtime -As needed oxygen Depression -Currently on no medications DVT prophylaxis -Heparin 3 times daily -SCDs CODE STATUS -Full code as discussed with the patient in the emergency department on admission Charges/Coding Visit Charges Inpatient E&M: 01787 Init Hosp L3
--- NOTE | 2021-06-30 15:14 | CM.ED ---
Addendum entered by Molly Mckeon 06/30/21 15:23: HD T/Th/Sat at [facility], start time 5:45AM. Last session today 06.30.21 and pretty much completed the whole thing. Abhi Mckeon, ALIREZACM Original Note: RN CM Assessment Introduced role of RN CM to patient. Patient is alert, oriented and able to participate in RN CM Assessment. Care providers, pharmacy, and demographics verified. Admit Dx: CP Re-Admit: No. Was admitted for CHF 04/20-04/28/21 and Dc'd to [facility]. Was DC'd from [facility] a couple weeks ago with Judi ARBOLEDA PT/SN. Barriers/Issues: None PCP: Gene Miller Specialists: Cardio- Lisa, Nephro- Juvenal Preferred Pharmacy: [facility] Insurance: [employer] Plan, [employer] Rx Benefit: Yes, [employer] LNOK: Son Eber Landrum, Friend Jono Patel LW/HPOA: [facility] has both LW and HPOA. Aware not on file at [facility]. HPOA- Friend Jono Patel. Living Arrangements: Lives with friend Edel Pollard in a [facility], 4 steps to enter home. ADL?s: Ambulates with straight can prn, Independent with ADLs Transportation: DME: [place], Straight Cane, WC lyft, Glucometer HHC: Current Judi ARBOLEDA- PT on Tuesdays, SN to sort medications once/week on . SNF: Past at [facility] Goal: Home with RICK ARBOLEDA PT/SN. States after cardiac cath if anything changes his condition, then plan may change. DC PLAN: Home with RICK ARBOLEDA PT/SN.
--- NOTE | 2021-06-30 15:59 | EKG12_ITS ---
Test Reason : Blood Pressure : / mmHG Vent. Rate : 081 BPM Atrial Rate : 081 BPM P-R Int : 224 ms QRS Dur : 110 ms QT Int : 420 ms P-R-T Axes : 047 -02 029 degrees QTc Int : 487 ms Sinus rhythm with 1st degree A-V block Prolonged QT Abnormal ECG Confirmed by JOSUE CASILLAS, TALITA ([id number]), script editor MAYNOR TREVIZO ([id number]) on 07/04/2021 9:37:55 AM Referred By: ARTHUR Confirmed By:TALITA SALAS MD
[2021-06-30 16:21] LABS: Bedside Glucose 115 mg/dL (70-110)
[2021-06-30] MEDS: Calcium Acetate 667 MG Capsule PO (17:38)
[2021-06-30 17:55] LABS: Troponin-I HS 26 pg/mL (3.0-78.0)
[2021-06-30] MEDS: Heparin Injection (Vial) 5,000 UNIT/ML VIAL 5000 UNIT SC (21:15)
[2021-06-30] MEDS: Carvedilol 12.5 MG Tablet PO (21:16)
[2021-06-30] MEDS: Atorvastatin Calcium 80 MG Tablet PO (21:16)
[2021-06-30] MEDS: hydrALAZINE 50 MG Tablet PO (21:17)
[2021-06-30] MEDS: Ranolazine 500 MG Tablet PO (21:17)
[2021-06-30] MEDS: Isosorbide DN 10 MG Tablet PO (21:17)
[2021-06-30 21:31] LABS: Bedside Glucose 189 mg/dL (70-110)
[2021-07-01] VITALS (11 sets, daily range): BP systolic 133–156; BP diastolic 61–73; PULSE 68–82; RESP 16–18; TEMP 36.4–36.6; O2SAT 85–97
[2021-07-01 05:28] LABS: Absolute Lymphocyte Count 1.03 X10^3/uL (0.83-4.51); Absolute Neutrophil Count 4.5 X10^3/uL (2.0-7.7); Basophil# 0.04 X10^3/uL; Basophil% 0.6 % (0-1); Hematocrit 28.5 % (40-54); Hemoglobin 9.2 g/dL (13.0-16.5); Lymphocyte # 1.03 X10^3/ul (0.83-4.51); Lymphocyte % 15.5 % (19-41); Mean Corp Hgb Conc 32.3 g/dL (32-36); Mean Corpuscular Hgb 28.3 pg (27.0-32.0); Mean Corpuscular Volume 87.7 fL (80-94); Mean Platelet Vol. 11.1 fl (6.2-12.0); Monocyte# 0.85 X10^3/uL; Monocyte% 12.8 % (0-10); NRBC Flagged by Analyzer 0 % (0-5); Neutrophil # 4.49 X10^3/uL (2.7-7.7); Neutrophil % 67.8 % (47-70); Platelet Count 138 K/mm3 (150-450); RBC Distribution Width CV 15.1 % (11.6-14.6); RBC Distribution Width SD 48.9 fl (35.1-43.9); Red Blood Count 3.25 M/mm3 (4.6-6.2); White Blood Count 6.6 K/mm3 (4.4-11.0)
--- NOTE | 2021-07-01 05:55 | EKG12_ITS ---
Test Reason : AM EKG Blood Pressure : / mmHG Vent. Rate : 076 BPM Atrial Rate : 076 BPM P-R Int : 224 ms QRS Dur : 112 ms QT Int : 432 ms P-R-T Axes : 054 005 062 degrees QTc Int : 486 ms Sinus rhythm with 1st degree A-V block Prolonged QT Abnormal ECG Confirmed by JOSUE CASILLAS, TALITA ([id number]), social media editor MAYNOR TREVIZO ([id number]) on 07/04/2021 9:37:05 AM Referred By: DR MUIR Confirmed By:TALITA SALAS MD
[2021-07-01 06:06] LABS: ALB/GLOB Ratio 0.9 RATIO (0.9-2.4); AST(SGOT) 26 U/L (15-37); Alanine Aminotransfer ALT/SGPT 33 U/L (16-61); Albumin, Serum 2.8 g/dL (3.2-5.0); Alkaline Phosphatase 100 U/L (45-117); Anion Gap 5 (5-15); BUN 33 mg/dL (7-18); BUN/Creat Ratio 8.2 RATIO (10-20); Calcium,Total 7.6 mg/dL (8.5-10.1); Chloride 102 mmol/L (98-107); Cholesterol 81 mg/dL (200); Creatinine, Serum 4.04 mg/dL (0.70-1.30); EST Glomerular Filtration Rate 16 mL/min (>60); Est Glom Filt Rate - Afr Amer 19 mL/min (>60); Estimated Creatinine Clearance 18.23 ml/min; Globulin 3.2 g/dL (2.2-4.2); Glucose 101 mg/dL (74-106); High Density Lipoprotein 30 mg/dL; Phosphorus 4.2 mg/dL (2.5-4.9); Potassium 4.1 mmol/L (3.5-5.1); Sodium Level 137 mmol/L (136-145); Triglycerides 110 mg/dL; Very Low Density Lipoprotein 22 mg/dL (5-40)
[2021-07-01] MEDS: Aspirin E.C. 81 MG Tablet PO (06:39)
[2021-07-01] MEDS: hydrALAZINE 50 MG Tablet PO (06:39)
[2021-07-01 06:46] LABS: Bedside Glucose 114 mg/dL (70-110)
--- NOTE | 2021-07-01 10:00 | CASEMGMT ---
Addendum entered by Molly Sandy 07/01/21 13:34: Pt's clinicals and D/C summ/instructions faxed to [facility]. Call to Noreen at [facility] to notify of discharge, voices understanding. Scott LAY CM Original Note: Noreen at [facility] aware of pt OBS status and aware pt will likely d/c today, voices understanding. Noreen to be notified of discharge and clinicals faxed to [facility]. No RICK order needed as pt is OBS. Scott LAY CM
[2021-07-01] MEDS: Carvedilol 12.5 MG Tablet PO (10:17)
[2021-07-01] MEDS: Isosorbide DN 10 MG Tablet PO (10:17)
[2021-07-01] MEDS: Tamsulosin HCl 0.4 MG Capsule PO (10:18)
[2021-07-01] MEDS: Ferrous Sulfate 325 MG Tablet PO (10:18)
[2021-07-01] MEDS: Ranolazine 500 MG Tablet PO (10:18)
[2021-07-01] MEDS: GUANFACINE HCL 1 MG TABLET PO (10:19)
[2021-07-01 10:35] LABS: Bedside Glucose 108 mg/dL (70-110)
[2021-07-01] MEDS: Acetaminophen 325 MG Tablet 650 MG PO (11:11)
[2021-07-01] MEDS: Calcium Acetate 667 MG Capsule PO (11:11)
--- NOTE | 2021-07-01 11:27 | STRESSREP ---
Stress Test Report Pharmacologic/Lexiscan myocardial perfusion stress test. Indication; Patient is 65-year-old with history of CAD end-stage renal disease currently on hemodialysis Has symptoms of chest pain and was a medical treatment Stress protocol: Resting EKG demonstrates. Normal sinus rhythm. 0.4 mg of regadenoson was infused per usual protocol followed by rapid intravenous saline flush injection continuous EKG monitoring was performed. The maximum heart rate attained was 88 bpm which was 56% of maximum predicted heart rate. Stress EKG showed[, no significant change from the resting EKG, with maximum heart rate of 88 bpm. Arrhythmia: No arrhythmia demonstrated Symptoms: Patient had no symptoms of chest pain Blood pressure at rest: 124/62 mmHg, blood pressure at the end of stress: 124/62 mmHg Myocardial perfusion protocol. 15 mCi of Technetium 99m Sestamibi was injected at rest. 0.4 mg of Regadenoson was infused per usual protocol peak infusion[44.8 mCi ]of Technetium 99m sestamibi was injected. Stress images were obtained stress and rest images were reconstructed and compared in the short axis vertical and horizontal long axis. Gated images were also obtained Perfusion SPECT analysis: Review of the images demonstrate normal uptake of sestamibi at rest, post stress images demonstrate similar uptake of sestamibi to the resting images, homogeneous tracer uptake With no evidence of reversible myocardial ischemia. Gated SPECT analysis: The gated ejection fraction is 61%,. Normal LV systolic function and normal left ventricular wall motion Conclusion: Negative Lexiscan sestamibi myocardial perfusion study for reversible myocardial ischemia Normal LV systolic function Delma Pino MD,FACC,[facility]
--- NOTE | 2021-07-01 12:24 | PCM.DC ---
Discharge Instructions Diet Discharge Diet: Low fat / Low cholesterol and Renal Diet Activity Discharge Activity: Return to Normal Activity Dressing / Incision Call your doctor if you observe: Shortness of breath, Dizziness and Chest pain Follow Up Care Test Results: Test results from this visit will be discussed in further detail at your follow-up appointment, if applicable. Discharge Plan Admission Admit Date/Time: 06/30/21 14:27 Primary Reason for Your Visit: Chest pain Attending Provider: Iban Patel Primary Care Provider: Gene Miller Instructions Additional Instructions / Restrictions: Recommend follow up with GI for recurrent epigastric discomfort. Discharge Orders/Prescriptions Prescriptions: Continued ranolazine [Ranexa] 500 mg tablet extended release 12 hr 500 mg PO BID Qty: 60 RF: 11 atorvastatin 80 mg tablet 80 mg PO QHS Qty: 90 RF: 3 Hold Instructions: Pt is also on Ranexa nitroglycerin 0.4 MG tablet 0.4 mg SUBLINGUAL Q5M PRN (Reason: Chest Pain) RF: 0 aspirin 81 MG tablet 81 mg PO DAILY Qty: 0 RF: 0 ondansetron 4 mg tablet,disintegrating 4 mg PO Q8H PRN PRN (Reason: Nausea) Qty: 10 RF: 0 isosorbide dinitrate 10 mg tablet 10 mg PO TID Qty: 90 RF: 0 calcium acetate 667 mg tablet 667 mg PO TID RF: 0 carvedilol 12.5 mg tablet 12.5 mg PO BID@0900,2100 RF: 0 amlodipine 10 mg tablet 10 mg PO DAILY RF: 0 hydralazine 100 mg tablet 50 mg PO BID RF: 0 insulin lispro 100 unit/mL Insulin Pen See Protocol unit SUBCUT TID RF: 0 Tresiba FlexTouch U-200 200 unit/mL (3 mL) Insulin Pen 15 unit SUBCUT DAILY RF: 0 ergocalciferol (vitamin D2) 25,000 unit Capsule 50,000 unit PO MO RF: 0 guanfacine 1 mg tablet 1 mg PO QHS RF: 0 tamsulosin [Flomax] 0.4 mg capsule 0.4 mg PO DAILY Qty: 30 RF: 0 Referrals / Follow Up: Gene Miller MD [Primary Care Provider] - In 1 Week Stephane Sullivan DO [STAFF PHYSICIAN] - Within 2 Weeks Disposition Disposition (needs filled in before D/C Order can be placed): Home, Self Care
--- NOTE | 2021-07-01 12:35 | DS.PCM_ITS ---
Documented by User: Alix Ramirez NP, [employer]AL [employer]ANGING SUPERVISOR-C 07/01/21 15:11 Providers Date of Admission: 06/30/21 Date of Discharge: 07/01/21 Primary Care Physician: Dr. Gene Miller MD Reason For Visit: CHEST PAIN Diagnosis Discharge Diagnosis (1) Chest pain: Status: Acute Code(s): R07.9 - Chest pain, unspecified Medications at Discharge Home Medications nitroglycerin 0.4 mg SUBLINGUAL Q5M PRN 06/30/15 aspirin 81 mg PO DAILY #0 07/09/18 guanfacine 1 mg tablet 1 mg PO QHS 02/10/20 atorvastatin 80 mg tablet 80 mg PO QHS #90 tab 03/25/21 ranolazine 500 mg tablet,extended release,12 hr 500 mg PO BID #60 tab 03/25/21 ondansetron 4 mg PO Q8H PRN PRN #10 tab 04/06/21 tamsulosin 0.4 mg capsule 0.4 mg PO DAILY #30 cap 04/20/21 isosorbide dinitrate 10 mg PO TID #90 tab 04/28/21 Tresiba FlexTouch U-200 15 unit SUBCUT DAILY 06/30/21 amlodipine 10 mg PO DAILY 06/30/21 calcium acetate 667 mg PO TID 06/30/21 carvedilol 12.5 mg PO BID@0900,2100 06/30/21 ergocalciferol (vitamin D2) 50,000 unit PO MO 06/30/21 hydralazine 50 mg PO BID 06/30/21 insulin lispro See Protocol SUBCUT TID 06/30/21 pantoprazole [Protonix] 40 mg PO DAILY #30 tab 07/01/21 Hospital Course Operations None Procedures Nuclear stress test Summary of Care Provided Hospital Course: Patient is a 65-year-old male admitted 06/30/21 due to chest pain. 1. Chest pain-ACS ruled out. Patient reports ongoing recurrent epigastric discomfort. Recommend follow-up with GI as outpatient for further evaluation. Cardiac enzymes negative. Nuclear stress test negative for ischemia. Follow-up with PCP and GI as outpatient. 2. End-stage renal disease-on hemodialysis. 3. Pulmonary nodules-CTA demonstrated 10 mm left anterior lobe nodule and 4.6 mm right middle lobe pulmonary nodule. Both reported to be unchanged from prior. Outpatient follow-up. 4. Chronic heart failure with preserved ejection fraction-stable. 5. Anemia of chronic disease-continue iron supplementation. 6. Type 2 diabetes mellitus-continue home insulin regimen. 7. CAD with history of PCI-continue aspirin, statin, Ranexa. Follow-up with cardiology as scheduled. 8. Hypertension-stable, continue home regimen. 9. BPH-on Flomax. 10. Remote history of DVT-no longer on anticoagulation. 11. Hyperlipidemia-continue statin. 12. Obesity-encouraged diet and lifestyle modifications. 13. KATJA-noncompliant with Pap regimen. Patient seen and examined prior to discharge. Physical assessment as noted below. Patient is stable for discharge with follow up recommendations as noted above. This patient was seen by HEMAL Hoffman under the supervision of Dr. Patel. Time spent examining patient, reviewing data and subsequent management of care: 14 Minutes Physical Exam Const alert, oriented x3 and no apparent distress Orientation / Consciousness: awake, oriented to person, oriented to place and oriented to time HEENT normocephalic and moist oral mucous membranes Eyes PERRL, EOMs intact bilaterally and conjunctivae normal Neck no lymphadenopathy Resp normal respiratory effort and clear to auscultation bilaterally Cardio regular rate, regular rhythm and no murmurs Peripheral Pulses: pulses 2+ throughout GI normal to inspection, nondistended, normoactive bowel sounds, non-tender and non-distended Extremity normal to inspection Skin no rashes or lesions noted Lesions: no lesions Rashes: no rashes Trauma: no lacerations or abrasions Neuro CN's II-XII intact bilaterally, no focal motor deficits, no sensory deficits noted and deep tendon reflexes 2+ bilaterally Psych mental status grossly normal and affect normal Weight / BMI Weight Weight: 233 lb 0.458 oz Body Mass Index (BMI) 33.5 ABG / Lab / Microbiology Data Result Diagrams: 07/01/21 05:16 07/01/21 05:16 Laboratory: Laboratory Results - last 24 hr 06/30/21 11:15: D-Dimer Quant (PE/DVT) 1.33 H* 06/30/21 13:28: Troponin I High Sens 26 06/30/21 16:11: POC Glucose 115 H 06/30/21 17:10: Troponin I High Sens 06/30/21 21:25: POC Glucose 189 H 07/01/21 05:16: WBC 6.6, RBC 3.25 L, Hgb 9.2 L, Hct 28.5 L, MCV 87.7, MCH 28.3, MCHC 32.3, RDW Std Deviation 48.9 H, RDW Coeff of Lina 15.1 H, Plt Count 138 L, MPV 11.1, Immature Gran % (Auto) 0.300, Neut % (Auto) 67.8, Lymph % (Auto) 15.5 L, [place] % (Auto) 12.8 H, Eos % (Auto) 3.0, Baso % (Auto) 0.6, Absolute Neuts (auto) 4.5, Absolute Lymphs (auto) 1.03, Nucleated RBC % 0 07/01/21 05:16: Sodium 137, Potassium 4.1, Chloride 102, Carbon Dioxide 30.0, Anion Gap 5, BUN 33 H, Creatinine 4.04 H, Estim Creat Clear Calc 18.23, Est GFR (MDRD) Af Amer 19 L, Est GFR (MDRD) Non-Af 16 L, BUN/Creatinine Ratio 8.2 L, Glucose 101, Calcium 7.6 L, Phosphorus 4.2, Magnesium Cancelled, Total Bilirubin 0.50, AST 26, ALT 33, Alkaline Phosphatase 100, Total Protein 6.0 L, Albumin 2.8 L, Globulin 3.2, Albumin/Globulin Ratio 0.9, Triglycerides 110, Cholesterol 81, LDL Cholesterol 29, VLDL Cholesterol 22, HDL Cholesterol 30 L 07/01/21 06:35: POC Glucose 114 H 07/01/21 10:29: POC Glucose 108 Microbiology: Microbiology 06/30/21 11:35 Nasal Secretion SARS-CoV-2 Antigen (Rapid) - Final Radiography Diagnostic Testing: Radiology Impression Chest CTA 06/30/21 12:44 IMPRESSION: 1. No CTA evidence of pulmonary thromboemboli, thoracic aortic aneurysm or dissection. 2. Moderate bilateral posterior pleural fluid with compressive atelectases of the posterior lower lobes. 3. 10 mm noncalcified and indeterminate pulmonary nodule in the left anterior lobe (series 602, image 277; series 2, images 90; series 601, image 140). This is unchanged. Fleischner Society Guidelines (MacMahon, et al. Radiology 2017; 284(1):228-43) suggest no follow-up is necessary for patients with low or high risk of malignancy. 4. 4.6 mm noncalcified and indeterminate pulmonary nodule in the right middle lobe underneath the minor fissure (series 2, images 103; series 602, image 97). This is unchanged. Fleischner Society Guidelines (MacMahon, et al. Radiology 2017; 284(1):228-43) suggest that no further follow-up is necessary for patients with low or high risk of malignancy. Electronically Signed: Wallace Mna MD at 13:46 EST , D/C Instructions Discharge Diet: Low fat / Low cholesterol and Renal Diet Call your doctor if you observe: Shortness of breath, Dizziness and Chest pain Meaningful Use Info Meaningful Use Diagnoses (Choose all that apply): None applicable Discharge Plan Admission Admit Date/Time: 06/30/21 14:27 Primary Reason for Your Visit: Chest pain Attending Provider: Iban Patel Primary Care Provider: Gene Miller Instructions Additional Instructions / Restrictions: Recommend follow up with GI for recurrent epigastric discomfort. Discharge Orders/Prescriptions Prescriptions: New pantoprazole [Protonix] 40 mg tablet,delayed release (DR/EC) 40 mg PO DAILY Qty: 30 RF: 1 Continued ranolazine [Ranexa] 500 mg tablet extended release 12 hr 500 mg PO BID Qty: 60 RF: 11 atorvastatin 80 mg tablet 80 mg PO QHS Qty: 90 RF: 3 Hold Instructions: Pt is also on Ranexa nitroglycerin 0.4 MG tablet 0.4 mg SUBLINGUAL Q5M PRN (Reason: Chest Pain) RF: 0 aspirin 81 MG tablet 81 mg PO DAILY Qty: 0 RF: 0 ondansetron 4 mg tablet,disintegrating 4 mg PO Q8H PRN PRN (Reason: Nausea) Qty: 10 RF: 0 isosorbide dinitrate 10 mg tablet 10 mg PO TID Qty: 90 RF: 0 calcium acetate 667 mg tablet 667 mg PO TID RF: 0 carvedilol 12.5 mg tablet 12.5 mg PO BID@0900,2100 RF: 0 amlodipine 10 mg tablet 10 mg PO DAILY RF: 0 hydralazine 100 mg tablet 50 mg PO BID RF: 0 insulin lispro 100 unit/mL Insulin Pen See Protocol unit SUBCUT TID RF: 0 Tresiba FlexTouch U-200 200 unit/mL (3 mL) Insulin Pen 15 unit SUBCUT DAILY RF: 0 ergocalciferol (vitamin D2) 25,000 unit Capsule 50,000 unit PO MO RF: 0 guanfacine 1 mg tablet 1 mg PO QHS RF: 0 tamsulosin [Flomax] 0.4 mg capsule 0.4 mg PO DAILY Qty: 30 RF: 0 Referrals / Follow Up: Gene Miller MD [Primary Care Provider] - In 1 Week FriendStephane DO [STAFF PHYSICIAN] - Within 2 Weeks Disposition Disposition (needs filled in before D/C Order can be placed): Home, Self Care Documented by User: Dr. Iban Patel MD 07/01/21 15:47 Providers Date of Admission: 06/30/21 Reason For Visit: CHEST PAIN Medications at Discharge Home Medications nitroglycerin 0.4 mg SUBLINGUAL Q5M PRN 06/30/15 aspirin 81 mg PO DAILY #0 07/09/18 guanfacine 1 mg tablet 1 mg PO QHS 02/10/20 atorvastatin 80 mg tablet 80 mg PO QHS #90 tab 03/25/21 ranolazine 500 mg tablet,extended release,12 hr 500 mg PO BID #60 tab 03/25/21 ondansetron 4 mg PO Q8H PRN PRN #10 tab 04/06/21 tamsulosin 0.4 mg capsule 0.4 mg PO DAILY #30 cap 04/20/21 isosorbide dinitrate 10 mg PO TID #90 tab 04/28/21 Tresiba FlexTouch U-200 15 unit SUBCUT DAILY 06/30/21 amlodipine 10 mg PO DAILY 06/30/21 calcium acetate 667 mg PO TID 06/30/21 carvedilol 12.5 mg PO BID@0900,2100 06/30/21 ergocalciferol (vitamin D2) 50,000 unit PO MO 06/30/21 hydralazine 50 mg PO BID 06/30/21 insulin lispro See Protocol SUBCUT TID 06/30/21 pantoprazole [Protonix] 40 mg PO DAILY #30 tab 07/01/21 Hospital Course Summary of Care Provided Hospital Course: This patient was seen in conjunction with Alix MILTON. I have independently interviewed and examined the patient and reviewed pertinent history, examination findings, laboratory and plan of management. I have reviewed the note and agree with the documented findings with the few additional points. In brief, patient is 65-year-old gentleman with multiple comorbidities including ESRD on hemodialysis being followed by Dr. Sanford came to ED with chest pain treated on retrograde OP gastrium. His chest pain quality was feeling like belching, dyspeptic symptoms with reflux, atypical chest pain. Patient had mild shortness of breath and diaphoresis which got resolved by the time he was admitted. 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 Chest pain resolved. Serial high-sensitivity troponins negative. Perfusion nuclear myocardial stress test was negative for ischemia. I discussed the need for follow-up with logistics engineering manager for EGD as an outpatient. Prescription for Protonix 40 mg sent to patient's pharmacy. He has multiple other comorbidities include coronary artery disease, diabetes mellitus type 2 on insulin regimen, hypertension, BPH, chronic HFpEF. He also had pulmonary nodule with CTA chest shows 10 mm left anterior nodule and 4.6 right middle lobe nodule which is stable from prior imaging. Other comorbidities include dyslipidemia, obstructive sleep apnea on CPAP noncompliant remote history of DVT. Not on anticoagulant. Discharge medication reconciliation done. Discharge follow-up instructions completed. Discharge process discussed with the patient and all questions were answered to patient's satisfaction. Total time spent, exact 35 minutes on discharge meds reconciliation, examination, coordination of care with nurses and ancillary staff, review of imaging and blood test and discussion with the patient on follow-up instructions I have discussed my assessment with Alix MILTON and orders have been reviewed. Physical Exam Narrative Seen and examined. Chest pain is resolved. It was mainly in epigastric region with feeling of dyspeptic symptoms like belching and reflux. No associated shortness of breath. Physical exam General: Alert, Oriented x3, Cooperative HEENT: Atraumatic, PERRLA, EOMI, Normocephalic Oral: No Gingival or Mucosal Lesions/ Ulcerations Neck: Supple, No JVD, Negative Carotid Bruits Lungs: Air entry diminished in bilateral lung bases. No crepitation/rhonchi Cardiovascular: Sinus rhythm. Regular rate, Regular Rhythm, Normal S1, Normal S2, No murmurs Abdomen: Bowel Sounds Present, Soft, Non Tender, Non-Distended : ESRD on hemodialysis. Left arm AV fistula, with good thrill and bruit. No suprapubic tenderness. Extremities: Minimal ankle bilateral edema, Capillary Refill Less than 3 Seconds Skin: Chronic venous hypertensive changes with a skin grayish pigmentation, dry skin Musculoskeletal: No Tenderness to Palpation of Joints or Extremities Neurological: Cranial nerves II-XII grossly intact, DTR 2+/4 and Symmetrical, Neuro grossly intact Psych/Mental Status: Normal Affect, Appropriate. ABG / Lab / Microbiology Data Result Diagrams: 07/01/21 05:16 07/01/21 05:16 Discharge Plan Admission Admit Date/Time: 06/30/21 14:27 Primary Reason for Your Visit: Chest pain Attending Provider: Iban Patel Primary Care Provider: Gene Miller Instructions Additional Instructions / Restrictions: Recommend follow up with GI for recurrent epigastric discomfort. Discharge Orders/Prescriptions Prescriptions: New pantoprazole [Protonix] 40 mg tablet,delayed release (DR/EC) 40 mg PO DAILY Qty: 30 RF: 1 Continued ranolazine [Ranexa] 500 mg tablet extended release 12 hr 500 mg PO BID Qty: 60 RF: 11 atorvastatin 80 mg tablet 80 mg PO QHS Qty: 90 RF: 3 Hold Instructions: Pt is also on Ranexa nitroglycerin 0.4 MG tablet 0.4 mg SUBLINGUAL Q5M PRN (Reason: Chest Pain) RF: 0 aspirin 81 MG tablet 81 mg PO DAILY Qty: 0 RF: 0 ondansetron 4 mg tablet,disintegrating 4 mg PO Q8H PRN PRN (Reason: Nausea) Qty: 10 RF: 0 isosorbide dinitrate 10 mg tablet 10 mg PO TID Qty: 90 RF: 0 calcium acetate 667 mg tablet 667 mg PO TID RF: 0 carvedilol 12.5 mg tablet 12.5 mg PO BID@0900,2100 RF: 0 amlodipine 10 mg tablet 10 mg PO DAILY RF: 0 hydralazine 100 mg tablet 50 mg PO BID RF: 0 insulin lispro 100 unit/mL Insulin Pen See Protocol unit SUBCUT TID RF: 0 Tresiba FlexTouch U-200 200 unit/mL (3 mL) Insulin Pen 15 unit SUBCUT DAILY RF: 0 ergocalciferol (vitamin D2) 25,000 unit Capsule 50,000 unit PO MO RF: 0 guanfacine 1 mg tablet 1 mg PO QHS RF: 0 tamsulosin [Flomax] 0.4 mg capsule 0.4 mg PO DAILY Qty: 30 RF: 0 Referrals / Follow Up: Gene Miller MD [Primary Care Provider] - In 1 Week Stephane Sullivan DO [STAFF PHYSICIAN] - Within 2 Weeks Disposition Disposition (needs filled in before D/C Order can be placed): Home, Self Care Charges/Coding Visit Charges OBSV E&M: 28044 Observation care discharge
--- NOTE | 2021-07-01 13:33 | CASEMGMT ---
Noreen at [facility] aware of pt OBS status and aware pt will likely d/c today, voices understanding. Noreen to be notified of discharge and clinicals faxed to [facility]. No RICK order needed as pt is OBS. Scott LAY CM
== END 2021-07-01 12:26 | disposition home health service (06) ==
LOC: ED 14:34 → PCU 14:54
PROVIDERS: Admitting Provider Internal Medicine; Emergency Provider Emergency Medicine; PCP Family Medicine; Visit Provider Internal Medicine
DX: R07.89 Other chest pain (principal); I13.2 Hypertensive heart and chronic kidney disease with heart failure and with stage 5 chronic kidney disease, or end stage renal disease; Z99.2 Dependence on renal dialysis; I50.32 Chronic diastolic (congestive) heart failure; E11.22 Type 2 diabetes mellitus with diabetic chronic kidney disease; N18.6 End stage renal disease; J96.11 Chronic respiratory failure with hypoxia; Z79.4 Long term (current) use of insulin; Z87.891 Personal history of nicotine dependence; E78.5 Hyperlipidemia, unspecified; R00.2 Palpitations; I25.10 Atherosclerotic heart disease of native coronary artery without angina pectoris; Z79.82 Long term (current) use of aspirin; E66.9 Obesity, unspecified; I44.0 Atrioventricular block, first degree; D63.1 Anemia in chronic kidney disease; Z91.19 Patient's noncompliance with other medical treatment and regimen; G47.33 Obstructive sleep apnea (adult) (pediatric); Z68.33 Body mass index [BMI] 33.0-33.9, adult; Z79.899 Other long term (current) drug therapy; Z86.718 Personal history of other venous thrombosis and embolism; N40.0 Benign prostatic hyperplasia without lower urinary tract symptoms; R91.8 Other nonspecific abnormal finding of lung field
CPT/HCPCS: 36415; 71045; 71275; 78452; 80048; 80053; 80061; 82962; 83735; 84100; 84484; 85025; 85379; 87426; 93005; 93017; 96372; 97802; 99218; 99285; A9500; Q9967; A4216; G0378; J2785

== ENCOUNTER → 2021-10-26 | Outpatient (CLI) | payer MEDICARE, MEDICAID, SELFPAY ==
[2021-10-26 17:52] LABS: Absolute Lymphocyte Count 0.92 X10^3/uL (0.83-4.51); Basophil# 0.03 X10^3/uL; Basophil% 0.5 % (0-1); Eosinophil# 0.18 X10^3/uL; Eosinophils% 2.9 % (0-5); Hematocrit 27.7 % (40-54); Hemoglobin 9.3 g/dL (13.0-16.5); Lymphocyte # 0.92 X10^3/ul (0.83-4.51); Lymphocyte % 14.9 % (19-41); Mean Corp Hgb Conc 33.6 g/dL (32-36); Mean Corpuscular Hgb 30.8 pg (27.0-32.0); Mean Corpuscular Volume 91.7 fL (80-94); Mean Platelet Vol. 10.8 fl (6.2-12.0); Monocyte% 16.2 % (0-10); NRBC Flagged by Analyzer 0 % (0-5); Neutrophil # 4.02 X10^3/uL (2.7-7.7); Neutrophil % 65.2 % (47-70); Platelet Count 168 K/mm3 (150-450); RBC Distribution Width CV 14.4 % (11.6-14.6); RBC Distribution Width SD 47.6 fl (35.1-43.9); Red Blood Count 3.02 M/mm3 (4.6-6.2); White Blood Count 6.2 K/mm3 (4.4-11.0)
[2021-10-26 18:35] LABS: Hemoglobin A1c 7.9 % (3.8-5.6)
[2021-10-26 19:52] LABS: AST(SGOT) 16 U/L (15-37); Alanine Aminotransfer ALT/SGPT 28 U/L (16-61); Albumin, Serum 3.7 g/dL (3.2-5.0); Alkaline Phosphatase 191 U/L (45-117); Anion Gap 11 (5-15); BUN 45 mg/dL (7-18); BUN/Creat Ratio 8.8 RATIO (10-20); Calcium,Total 8.7 mg/dL (8.5-10.1); Chloride 99 mmol/L (98-107); Cholesterol 104 mg/dL (200); Creatinine, Serum 5.13 mg/dL (0.70-1.30); EST Glomerular Filtration Rate 12 mL/min (>60); Est Glom Filt Rate - Afr Amer 15 mL/min (>60); Globulin 3.8 g/dL (2.2-4.2); Glucose 366 mg/dL (74-106); High Density Lipoprotein 29 mg/dL; PSA,Total - Annual Screen 0.91 ng/mL (0.00-4.00); Potassium 4.4 mmol/L (3.5-5.1); Protein, Total 7.5 g/dL (6.4-8.2); Sodium Level 136 mmol/L (136-145); Triglycerides 318 mg/dL; Very Low Density Lipoprotein 64 mg/dL (5-40)
== END | disposition home or self-care (01) ==
LOC: MFPLAB 17:02
PROVIDERS: PCP Family Medicine; Referring Provider Family Medicine; Visit Provider Family Medicine
DX: Z12.5 Encounter for screening for malignant neoplasm of prostate (principal); E11.9 Type 2 diabetes mellitus without complications
CPT/HCPCS: 36415; 80053; 80061; 83036; 84153; 85025; G0103

== ENCOUNTER 2021-12-24 10:04 | Emergency (ER) | payer MEDICARE, MEDICAID, SELFPAY ==
[2021-12-24 10:05] VITALS: BP 161/73; PULSE 78; RESP 13; TEMP 36.6; O2SAT 95; BMI 34.0
--- NOTE | 2021-12-24 10:05 | EKG12_ITS ---
Test Reason : cp Blood Pressure : / mmHG Vent. Rate : 075 BPM Atrial Rate : 075 BPM P-R Int : 226 ms QRS Dur : 108 ms QT Int : 438 ms P-R-T Axes : 046 -20 045 degrees QTc Int : 489 ms Sinus rhythm with 1st degree A-V block Prolonged QT Abnormal ECG Confirmed by VANESSA CASILLAS, ROYAL ([id number]), desk editor MAYNOR TREVIZO ([id number]) on 12/26/2021 1:14:47 PM Referred By: Travon Confirmed By:ROYAL MENDEZ MD
--- NOTE | 2021-12-24 10:20 | CT_ITS ---
STUDY: CT BRAIN WITHOUT CONTRAST REASON FOR EXAM: Male, 66 years old. dizziness, sudden onset headache RADIATION DOSAGE (If Supplied By Facility): CTDIvol = ( 44.99 ) mGy, DLP = ( 829.85 ) mGycm TECHNIQUE: Transaxial CT imaging of the brain was performed without administration of intravenous contrast material. Individualized dose optimization techniques were used for this CT. COMPARISON: 04/05/2021 FINDINGS: Normal soft tissue structures. Normal calvarium. Normal size ventricles and extra-axial spaces for the patient''s age. Normal white matter tracts of the cerebral hemispheres. Normal basal ganglia and thalami. Normal brainstem. Normal cerebellum. There is no intracranial hemorrhage. There are no findings of an acute ischemic infarction. Normal visualized paranasal sinuses. CT/Brain/Head without Contrast IMPRESSION: Normal unenhanced CT scan of the brain. Electronically Signed: Kraig Barros MD at 12:08 EDT ,
--- NOTE | 2021-12-24 10:20 | RAD_ITS ---
STUDY: X-RAY CHEST REASON FOR EXAM: Male, 66 years old. chest pain TECHNIQUE: Single AP portable view of the chest. COMPARISON: FINDINGS: Poor inspiration with some bibasilar atelectasis. There is no demonstrated pleural abnormality. Normal size heart. Normal mediastinum and lydia. Normal visualized pulmonary arteries. Normal visualized aortic arch and descending thoracic aorta. Normal visualized thoracic spine. Normal visualized ribs, clavicles, and shoulders. There is no demonstrated abnormality of the visualized soft tissue structures of the upper abdomen. RAD/Chest 1 View (Portable) IMPRESSION: Poor inspiration with some bibasilar atelectasis. Electronically Signed: Kraig Barros MD at 11:19 EDT ,
--- NOTE | 2021-12-24 10:25 | EDS_ITS ---
HPI History of Present Illness Chief Complaint: Chest Pain Informant: patient Narrative Narrative: Patient is a 66-year-old male with history of longstanding insulin-dependent diabetes mellitus, end-stage renal disease on hemodialysis, hypertension presenting with headache, dizziness and chest discomfort. Patient was at dialysis an hour 3 of 4 hours when suddenly he felt clammy had a gradual onset of headache as well as some right-sided neck pain. He also felt some chest discomfort. States he feels a little dizzy. He felt clammy like this once before that was when he was having a heart attack. 911 was called and he was brought to the emergency room for further evaluation. Did have eye surgery about a week ago on his left eye for drainage of fluid and states his vision is been improving since then. No other complaints at this time. Does get in termittent numbness and tingling with dialysis but this is chronic and unchanged. States he was in his normal state of health earlier today. [facility] Medical History (HFpEF) heart failure with preserved ejection fraction Ambulates with cane Anemia Atherosclerotic heart disease of [place] coronary artery without angina pectoris CAD (coronary artery disease) Cardiology follow-up encounter CHF exacerbation Chronic anemia Chronic cough Chronic kidney disease (CKD) Chronic pain CKD stage 4 due to type 2 diabetes mellitus CKD stage 5 due to type 2 diabetes mellitus Debility Depression Depression Diabetes Diabetes mellitus type 2, insulin dependent Dialysis patient DVT (deep venous thrombosis) DVT of lower extremity (deep venous thrombosis) (09/2018) Dyspnea on minimal exertion ESRD (end stage renal disease) on dialysis Essential (primary) hypertension Former smoker Gastric reflux Hemodialysis access site with arteriovenous graft High cholesterol History of echocardiogram History of edema History of meniscal tear History of renal disease History of stress test Hyperlipidemia Hypertension Insulin dependent diabetes mellitus Iron deficiency anemia Iron deficiency anemia Kidney disease Nephrotic syndrome Obesity (BMI 30.0-34.9) Old inferior wall myocardial infarction Problem with dialysis access Scarlet fever Shortness of breath Sleep apnea Tear of lateral meniscus of left knee Tear of medial meniscus of left knee TIA (transient ischemic attack) (09/19/18) Type 2 diabetes mellitus Vitreous hemorrhage, bilateral Home Medications nitroglycerin 0.4 mg sublingual tablet 0.4 mg sublingual Q5M PRN Chest Pain 06/30/15 [History Last Taken 09/30/17 0.4 MG] aspirin 81 mg tablet,delayed release 81 mg PO DAILY HEART HEALTH ##0 07/09/18 [Rx Last Taken 06/29/21] guanfacine 1 mg tablet 1 mg PO QHS diabetes 02/10/20 [History Last Taken Unknown] atorvastatin 80 mg tablet 80 mg PO QHS #90 tabs 03/25/21 [Rx Last Taken 06/29/21] ranolazine 500 mg tablet,extended release,12 hr (Ranexa) 500 mg PO BID #60 tabs 03/25/21 [Rx Last Taken 06/29/21] ondansetron 4 mg disintegrating tablet 4 mg PO Q8H PRN PRN Nausea #10 tabs 04/06/21 [Rx Last Taken Unknown] tamsulosin 0.4 mg capsule (Flomax) 0.4 mg PO DAILY #30 caps 04/20/21 [Rx Last Taken 06/29/21] isosorbide dinitrate 10 mg tablet 10 mg PO TID #90 tabs 04/28/21 [Rx Last Taken 06/29/21] amlodipine 10 mg tablet 10 mg PO DAILY BP 06/30/21 [History Last Taken 06/29/21] calcium acetate 667 mg tablet 667 mg PO TID 06/30/21 [History Last Taken 06/29/21] carvedilol 12.5 mg tablet 12.5 mg PO BID@0900,2100 HEART 06/30/21 [History Last Taken 06/29/21] ergocalciferol (vitamin D2) 25,000 unit capsule 50,000 unit PO MO 06/30/21 [History Last Taken Unknown] hydralazine 100 mg tablet 50 mg PO BID 06/30/21 [History Last Taken 06/29/21] insulin degludec 200 unit/mL (3 mL) subcutaneous pen (Tresiba FlexTouch U-200 insulin) 15 unit subcut DAILY 06/30/21 [History Last Taken 06/29/21] insulin lispro 100 unit/mL subcutaneous pen See Protocol subcut TID 06/30/21 [History Last Taken Unknown] pantoprazole 40 mg tablet,delayed release (Protonix) 40 mg PO DAILY #30 tabs 07/01/21 [Rx Last Taken Unknown] Allergy/AdvReac Type Severity Reaction Status Date / Time escitalopram [From Lexapro] Allergy Unknown Verified 12/24/21 10:05 sertraline [From Zoloft] Allergy Unknown Verified 12/24/21 10:05 lisinopril AdvReac Severe Cough Verified 12/24/21 10:05 Family History Father blood clot Sister CVA (cerebral vascular accident) Mother Diabetes Surgical History H/O abdominal surgery History of arteriovenostomy for renal dialysis (~01/2021) History of cardiac catheterization History of coronary artery stent placement (06/17/15) Hx of hernia repair Social History household members: friend(s) number of children: 2 current occupational status: retired Smoking Status: Former smoker alcohol intake: current alcohol intake frequency: a few times a week Alcohol type: beer substance use type: does not use caffeine: Yes Type: coffee Number of servings: 3 what type of physical activity do you participate in: none seatbelt use: always do you feel safe at home: Yes additional social history: estranged from children ROS ROS ED Constitutional Constitutional ED: Reports sweats; Denies chills or fever(s) Eyes Eyes: Denies change in vision or diplopia ENT ENT ED: Denies rhinorrhea or sore throat Cardiovascular Cardiovascular: Reports chest pain; Denies palpitations Respiratory/Chest Respiratory/Chest: Denies cough or dyspnea Gastrointestinal Gastrointestinal: Denies abdominal pain, nausea or vomiting Genitourinary Genitourinary ED: Denies dysuria or urinary frequency Musculoskeletal Musculoskeletal: Reports neck pain; Denies arthralgias, back pain or myalgias Integumentary Denies Abrasions or rash Neurologic Neurologic: Reports headache(s); Denies paresthesias or weakness Psychiatric Psychiatric: Denies anxiety Hematologic/Lymphatic Hematologic/Lymphatic: Denies easy bleeding EXAM Physical Exam Const Vital Signs: 12/24/21 10:05 12/24/21 10:06 12/24/21 12:14 Temperature 97.9 F Temperature Source Temporal Pulse Rate 78 74 Respiratory Rate 13 12 Respiratory Effort Normal Non-Labored Blood Pressure 161/73 H 161/68 H Blood Pressure Mean 102 99 Pulse Ox 95 98 Oxygen Delivery Method Room Air Room Air 12/24/21 14:05 12/24/21 15:26 Temperature 98.1 F Temperature Source Pulse Rate 75 80 Respiratory Rate 11 L 18 Respiratory Effort Blood Pressure 180/79 H 172/75 H Blood Pressure Mean 112 Pulse Ox 94 96 Oxygen Delivery Method Room Air Positive well nourished and well developed General Appearance ED: well developed and NAD HEENT Reports moist mucous membranes Negative for trauma Eyes PERRL Eyes Narrative: Fatiguing leftward horizontal nystagmus with leftward gaze. Slight injection of the left eye present. Patient states its been there since his surgery. Neck supple and no JVD Chest Wall inspection of chest normal and palpation of chest normal Resp normal respiratory effort and clear to auscultation bilaterally Cardio regular rate, regular rhythm and no murmurs Cardio Narrative: 1+ radial and DP pulses. AV fistula in the left upper extremity with palpable t hrill. Back/Spine no CVA tenderness Extremity normal to inspection General Extremety ED: Negative for tenderness Neuro oriented x3, CN's II-XII intact bilaterally and no sensory deficits noted Neuro Narrative: Normal [id number]. No truncal ataxia. Motor Exam: strength 5/5 throughout Skin no rashes or lesions noted and no wounds MDM MDM MDM Narrative Medical decision making narrative: Patient evaluated for short onset of headache and left-sided neck pain while at dialysis today. He states he felt dizzy and clammy with this. He does have some associated chest discomfort. He is concerned because last time he felt like this with his chest and clammy he was having a heart attack. Patient is mildly clammy in the ER but otherwise well-appearing. Vital signs are normal. His work-up is largely unremarkable including a CBC and CMP. He is chronic findings but is at his baseline. High since he troponin is stable at 12 and 13. No acute ischemic changes on his EKG. Chest x-ray interpreted by myself as well as radiology does not show any acute process. CT of the brain obtained given the acute onset of his headache which was negative for any subarachnoid hemorrhage. CTA of the head and neck obtained to rule out dissection or other acute vascular injury given the sudden onset. This is also negative. Patient is end-stage renal disease with hemodialysis and I spoke with the patient's patient safety sitter, Dr. Dee Dee Sanford, about whether patient would require more urgent dialysis and she did receive contrast load. She did not feel that patient needed dialysis before his next scheduled appointment on Sunday. Given his largely negative work-up and normal neurologic exam I feel that patient is stable to go home. I do not think this was a TIA or stroke equivalent. There is no obvious source of infection. Patient is unable to provide a urine sample today however he is not complain of any urinary symptoms. No signs of ACS or other acute cardiac or pulmonary process. Patient counseled return precautions. He verbalizes agreement and understand this plan. Lab Data Labs: Laboratory Results - last 24 hr 12/24/21 12/24/21 12/24/21 11:25 11:25 13:45 WBC 6.4 RBC 3.66 L Hgb 11.5 L Hct 34.1 L MCV 93.2 MCH 31.4 MCHC 33.7 RDW Std Deviation 45.7 H RDW Coeff of Lina 13.3 Plt Count 167 MPV 10.5 Immature Gran % (Auto) 0.300 Neut % (Auto) 65.2 Lymph % (Auto) 18.1 L Pender % (Auto) 12.8 H Eos % (Auto) 3.1 Baso % (Auto) 0.5 Absolute Neuts (auto) 4.2 Absolute Lymphs (auto) 1.16 Nucleated RBC % 0 Sodium 135 L Potassium 4.0 Chloride 96 L Carbon Dioxide 33.0 H Anion Gap 6 BUN 29 H Creatinine 4.12 H Estim Creat Clear Calc 17.64 Est GFR (MDRD) Af Amer 19 L Est GFR (MDRD) Non-Af 16 L BUN/Creatinine Ratio 7.0 L Glucose 202 H Calcium 8.1 L Total Bilirubin 0.40 AST 21 ALT 29 Alkaline Phosphatase 208 H Troponin I High Sens 12 Cancelled Total Protein 8.1 Albumin 3.9 Globulin 4.2 Albumin/Globulin Ratio 0.9 12/24/21 13:55 WBC RBC Hgb Hct MCV MCH MCHC RDW Std Deviation RDW Coeff of Lina Plt Count MPV Immature Gran % (Auto) Neut % (Auto) Lymph % (Auto) Pender % (Auto) Eos % (Auto) Baso % (Auto) Absolute Neuts (auto) Absolute Lymphs (auto) Nucleated RBC % Sodium Potassium Chloride Carbon Dioxide Anion Gap BUN Creatinine Estim Creat Clear Calc Est GFR (MDRD) Af Amer Est GFR (MDRD) Non-Af BUN/Creatinine Ratio Glucose Calcium Total Bilirubin AST ALT Alkaline Phosphatase Troponin I High Sens 13 Total Protein Albumin Globulin Albumin/Globulin Ratio Radiography Diagnostic Testing: Clinical Impression(s) from Imaging Studies Brain CT 12/24/21 10:20 IMPRESSION: Normal unenhanced CT scan of the brain. Electronically Signed: Kraig Barros MD at 12:08 EDT , Chest X-Ray 12/24/21 10:20 IMPRESSION: Poor inspiration with some bibasilar atelectasis. Electronically Signed: Kraig Barros MD at 11:19 EDT , Head/Neck CTA 12/24/21 13:09 IMPRESSION: 1. Mild atherosclerotic changes in the cavernous internal carotid arteries. 2. No intracranial great vessel stenosis. 3. Mild atherosclerotic changes in both carotid bulbs without significant stenosis. 4. Patent bilateral vertebral arteries without significant stenosis. Electronically Signed: Elmer Lyles MD at 14:28 EDT , Rhythm Strip Rhythm Strip: Sinus Rhythm Rate: 75 Ectopy: None EKG Initial EKG: Attestation: I personally reviewed and interpreted this EKG as follows: Interpretation: Sinus Rhythm Comments: Normal sinus rhythm at a rate of 75 First-degree AV block with a PA interval of 226 Normal QRS at 108 QTC prolonged at 489 Left axis deviation Normal ST segments Discharge Plan Triage Chief Complaint: Chest Pain ED Provider: Myriam Choi Dx/Rx/DC Orders Clinical Impression: Dizziness of unknown cause, Chest pain, Headache, Acute neck pain Instructions: ED Chest Pain, Uncertain Cause, ED Dizziness, Uncertain Cause Prescriptions: No Action ranolazine [Ranexa] 500 mg tablet extended release 12 hr 500 mg PO BID Qty: 60 11RF atorvastatin 80 mg tablet 80 mg PO QHS Qty: 90 3RF Hold Instructions: Pt is also on Ranexa nitroglycerin 0.4 MG tablet 0.4 mg SUBLINGUAL Q5M PRN (Reason: Chest Pain) Label Comments: CHEST PAIN aspirin 81 MG tablet 81 mg PO DAILY Qty: 0 0RF ondansetron 4 mg tablet,disintegrating 4 mg PO Q8H PRN PRN (Reason: Nausea) Qty: 10 0RF isosorbide dinitrate 10 mg tablet 10 mg PO TID Qty: 90 0RF Rx Instructions: allow nitrate-free interval of 12-14 hrs per 24-hr period calcium acetate 667 mg tablet 667 mg PO TID carvedilol 12.5 mg tablet 12.5 mg PO BID@0900,2100 amlodipine 10 mg tablet 10 mg PO DAILY hydralazine 100 mg tablet 50 mg PO BID Label Comments: TAKE 1 TABLET BY MOUTH THREE TIMES DAILY, HOLD IF BLOOD PRESSURE IS LESS THAN 120 insulin lispro 100 unit/mL Insulin Pen See Protocol SUBCUT TID Protocol: 1. Sliding Scale Insulin Low Dosing Condition: 150-224 mg/dl = 1 unit Condition: 225-299 mg/dl = 2 units Condition: 300-374 mg/dl = 3 units Condition: 375-499 mg/dl = 4 units Condition: Greater than 449 call physician Protocol Text: - Use for Total Daily Dose of Insulin 15-27 units - Thin, elderly, renal patients LOW DOSING ALGORITHM Tresiba FlexTouch U-200 200 unit/mL (3 mL) Insulin Pen 15 unit SUBCUT DAILY ergocalciferol (vitamin D2) 25,000 unit Capsule 50,000 unit PO MO pantoprazole [Protonix] 40 mg tablet,delayed release (DR/EC) 40 mg PO DAILY Qty: 30 1RF guanfacine 1 mg tablet 1 mg PO QHS tamsulosin [Flomax] 0.4 mg capsule 0.4 mg PO DAILY Qty: 30 0RF Primary Care Provider: Gene Miller Referrals: Gene Miller MD [Primary Care Provider] - Activity Restrictions/Additional Instructions: The exact cause your symptoms today is not clear however I feel that you are safe to go home. Your work-up was normal. Make sure you are drinking adequate fluids. No signs of infection, heart attack or stroke found today. Follow-up on Sunday for your regular scheduled dialysis. Return to emergency room if you have worsening symptoms or further concerns. Disposition Disposition: Home, Self Care
[2021-12-24 11:36] LABS: Absolute Lymphocyte Count 1.16 X10^3/uL (0.83-4.51); Absolute Neutrophil Count 4.2 X10^3/uL (2.0-7.7); Basophil# 0.03 X10^3/uL; Basophil% 0.5 % (0-1); Eosinophils% 3.1 % (0-5); Hematocrit 34.1 % (40-54); Hemoglobin 11.5 g/dL (13.0-16.5); Lymphocyte # 1.16 X10^3/ul (0.83-4.51); Lymphocyte % 18.1 % (19-41); Mean Corp Hgb Conc 33.7 g/dL (32-36); Mean Corpuscular Hgb 31.4 pg (27.0-32.0); Mean Corpuscular Volume 93.2 fL (80-94); Mean Platelet Vol. 10.5 fl (6.2-12.0); Monocyte# 0.82 X10^3/uL; Monocyte% 12.8 % (0-10); NRBC Flagged by Analyzer 0 % (0-5); Neutrophil # 4.18 X10^3/uL (2.7-7.7); Neutrophil % 65.2 % (47-70); Platelet Count 167 K/mm3 (150-450); RBC Distribution Width CV 13.3 % (11.6-14.6); RBC Distribution Width SD 45.7 fl (35.1-43.9); Red Blood Count 3.66 M/mm3 (4.6-6.2); White Blood Count 6.4 K/mm3 (4.4-11.0)
[2021-12-24 12:01] LABS: ALB/GLOB Ratio 0.9 RATIO (0.9-2.4); AST(SGOT) 21 U/L (15-37); Alanine Aminotransfer ALT/SGPT 29 U/L (16-61); Albumin, Serum 3.9 g/dL (3.2-5.0); Alkaline Phosphatase 208 U/L (45-117); Anion Gap 6 (5-15); BUN 29 mg/dL (7-18); Calcium,Total 8.1 mg/dL (8.5-10.1); Chloride 96 mmol/L (98-107); Creatinine, Serum 4.12 mg/dL (0.70-1.30); EST Glomerular Filtration Rate 16 mL/min (>60); Est Glom Filt Rate - Afr Amer 19 mL/min (>60); Estimated Creatinine Clearance 17.64 ml/min; Globulin 4.2 g/dL (2.2-4.2); Glucose 202 mg/dL (74-106); Protein, Total 8.1 g/dL (6.4-8.2); Sodium Level 135 mmol/L (136-145); Troponin-I HS (w/2H Reflex) 12 pg/mL (3.0-78.0)
[2021-12-24 12:14] VITALS: BP 161/68; PULSE 74; RESP 12; O2SAT 98
--- NOTE | 2021-12-24 13:09 | CT_ITS ---
STUDY: CTA HEAD AND NECK WITH CONTRAST REASON FOR EXAM: Male, 66 years old. Vertigo RADIATION DOSAGE (If Supplied By Facility): CTDIvol = ( 20.60 ) mGy, DLP = ( 834.74 ) mGycm TECHNIQUE: CT angiography was performed with a multi-detector CT scanner. Data acquisition was obtained from the skull base through the vertex following intravenous administration of IV 100mL [id number]-370. MIP images were reconstructed from the axial data set. Post-processing of the angiographic images was performed, with multiplanar reformation and 3D reconstruction. Individualized dose optimization techniques were used for this CT. COMPARISON: No relevant priors. FINDINGS: Normal bilateral petrous carotid arteries. There is calcified plaque formation of the right cavernous carotid artery, without a cross-sectional luminal stenosis. There is calcified plaque formation of the left cavernous carotid artery, without a cross-sectional luminal stenosis. Normal right A1 segments of the anterior cerebral artery. Normal left A1 segments of the anterior cerebral artery. Normal intact anterior communicating artery (ACOM). Normal bilateral A2 segments of the anterior cerebral arteries. Normal right M1 and M2 segments of the middle cerebral arteries, with a normal M1 bifurcation. Normal left M1 and M2 segments of the middle cerebral arteries, with a normal M1 bifurcation. Normal right posterior communicating artery (PCOM). There is non-visualization of the left posterior communicating artery (PCOM). Normal bilateral vertebral arteries. Normal basilar artery with a normal basilar bifurcation. The visualized bilateral superior cerebellar (SCA) arteries are normal. There is no demonstrated definite aneurysm of the [place]. AORTIC ARCH: There is atherosclerotic calcific plaque formation of the aortic arch and great vessels arising from the aortic arch, without a hemodynamically significant stenosis. There is a normal origin of the brachiocephalic, left common carotid, and left subclavian arteries. Normal origins of the brachiocephalic, left common carotid, and left subclavian arteries. RIGHT CAROTID ARTERIES: Normal right common carotid artery (CCA). There is mild atherosclerotic plaque formation with minimal narrowing of the right carotid bulb. There is mild atherosclerotic plaque formation of the origin of the right internal carotid artery with minimal stenosis. Normal visualized cervical portion of the right internal carotid artery. Normal origin of the right external carotid artery (ECA). LEFT CAROTID ARTERIES: Normal left common carotid artery (CCA). There is mild atherosclerotic plaque formation with minimal narrowing of the left carotid bulb. There is mild atherosclerotic plaque formation of the origin of the left internal carotid artery with minimal stenosis. Normal visualized cervical portion of the left internal carotid artery. Normal origin of the left external carotid artery (ECA). VERTEBRAL ARTERIES: Normal bilateral vertebral arteries. CT/CTA Head AND Neck W/ Contrast IMPRESSION: 1. Mild atherosclerotic changes in the cavernous internal carotid arteries. 2. No intracranial great vessel stenosis. 3. Mild atherosclerotic changes in both carotid bulbs without significant stenosis. 4. Patent bilateral vertebral arteries without significant stenosis. Electronically Signed: Elmer Lyles MD at 14:28 EDT ,
[2021-12-24 13:31] LABS: Reflex Troponin-HS? (from REC) Y
[2021-12-24 14:05] VITALS: BP 180/79; PULSE 75; RESP 11; O2SAT 94
[2021-12-24 14:22] LABS: Troponin-I HS (w/2H Reflex) 13 pg/mL (3.0-78.0)
[2021-12-24 15:26] VITALS: BP 172/75; PULSE 80; RESP 18; TEMP 36.7; O2SAT 96
[2021-12-24 16:00] LABS: Reflex Troponin-HS? (from REC) Y
== END 2021-12-24 16:01 | disposition home or self-care (01) ==
PROVIDERS: Emergency Provider Emergency Medicine; PCP Family Medicine; Visit Provider Emergency Medicine
DX: R07.9 Chest pain, unspecified (principal); I13.2 Hypertensive heart and chronic kidney disease with heart failure and with stage 5 chronic kidney disease, or end stage renal disease; Z99.2 Dependence on renal dialysis; I50.32 Chronic diastolic (congestive) heart failure; E11.22 Type 2 diabetes mellitus with diabetic chronic kidney disease; N18.6 End stage renal disease; Z79.4 Long term (current) use of insulin; M54.2 Cervicalgia; I25.10 Atherosclerotic heart disease of native coronary artery without angina pectoris; E78.5 Hyperlipidemia, unspecified; R42 Dizziness and giddiness; R51.9 Headache, unspecified; Z79.899 Other long term (current) drug therapy; Z79.82 Long term (current) use of aspirin; Z87.891 Personal history of nicotine dependence
CPT/HCPCS: 70450; 70496; 70498; 71045; 80053; 84484; 85025; 87811; 93005; 99284; Q9967; A4216

== ENCOUNTER → 2022-02-22 | Outpatient (CLI) | payer MEDICARE, MEDICAID, SELFPAY ==
[2022-02-22 15:34] LABS: Absolute Lymphocyte Count 0.93 X10^3/uL (0.83-4.51); Absolute Neutrophil Count 4.8 X10^3/uL (2.0-7.7); Basophil# 0.03 X10^3/uL; Basophil% 0.4 % (0-1); Eosinophil# 0.16 X10^3/uL; Eosinophils% 2.3 % (0-5); Hematocrit 35.3 % (40-54); Hemoglobin 11.7 g/dL (13.0-16.5); Lymphocyte # 0.93 X10^3/ul (0.83-4.51); Lymphocyte % 13.2 % (19-41); Mean Corp Hgb Conc 33.1 g/dL (32-36); Mean Corpuscular Hgb 30.5 pg (27.0-32.0); Mean Corpuscular Volume 92.2 fL (80-94); Mean Platelet Vol. 11.5 fl (6.2-12.0); Monocyte# 1.07 X10^3/uL; Monocyte% 15.2 % (0-10); NRBC Flagged by Analyzer 0 % (0-5); Neutrophil # 4.81 X10^3/uL (2.7-7.7); Neutrophil % 68.5 % (47-70); Platelet Count 150 K/mm3 (150-450); RBC Distribution Width CV 13.9 % (11.6-14.6); RBC Distribution Width SD 46.4 fl (35.1-43.9); Red Blood Count 3.83 M/mm3 (4.6-6.2)
[2022-02-22 16:29] LABS: Hemoglobin A1c 8.7 % (3.8-5.6)
[2022-02-22 16:38] LABS: ALB/GLOB Ratio 0.8 RATIO (0.9-2.4); AST(SGOT) 15 U/L (15-37); Alanine Aminotransfer ALT/SGPT 24 U/L (16-61); Albumin, Serum 3.7 g/dL (3.2-5.0); Alkaline Phosphatase 180 U/L (45-117); Anion Gap 12 (5-15); BUN 55 mg/dL (7-18); BUN/Creat Ratio 7.7 RATIO (10-20); Calcium,Total 8.6 mg/dL (8.5-10.1); Chloride 96 mmol/L (98-107); Cholesterol 124 mg/dL (200); Creatinine, Serum 7.13 mg/dL (0.70-1.30); EST Glomerular Filtration Rate 8 mL/min (>60); Est Glom Filt Rate - Afr Amer 10 mL/min (>60); Globulin 4.6 g/dL (2.2-4.2); Glucose 304 mg/dL (74-106); High Density Lipoprotein 30 mg/dL; Potassium 4.7 mmol/L (3.5-5.1); Protein, Total 8.3 g/dL (6.4-8.2); Sodium Level 136 mmol/L (136-145); Thyroid Stim Hormone (TSH) 0.97 uIU/mL (0.358-3.74); Triglycerides 329 mg/dL; Very Low Density Lipoprotein 66 mg/dL (5-40)
== END | disposition home or self-care (01) ==
LOC: MFPLAB 12:29
PROVIDERS: PCP Family Medicine; Referring Provider Family Medicine; Visit Provider Family Medicine
DX: E11.22 Type 2 diabetes mellitus with diabetic chronic kidney disease (principal); N18.6 End stage renal disease; R13.10 Dysphagia, unspecified
CPT/HCPCS: 36415; 80053; 80061; 83036; 84443; 85025

== ENCOUNTER → 2022-05-26 | Outpatient (CLI) | payer MEDICARE, MEDICAID, SELFPAY ==
--- NOTE | 2022-05-26 10:50 | RAD_ITS ---
STUDY: X-RAY - RIGHT KNEE REASON FOR EXAM: Male, 66 years old. Pain. TECHNIQUE: 3 view(s) of the knee. COMPARISON: None. FINDINGS: Osteopenia. Superior patellar spur. Small joint effusion. Marked vascular calcification. RAD/Knee 3 Views IMPRESSION: Osteopenia with patellar spur and small joint effusion. No acute abnormality changes. Electronically Signed: Kapil Houser, at 11:44 EST ,
--- NOTE | 2022-05-26 10:59 | RAD_ITS ---
STUDY: X-RAY - LEFT KNEE REASON FOR EXAM: Male, 66 years old. PAIN TECHNIQUE: 3 view(s) of the knee. COMPARISON: April 22, 2016. FINDINGS: Osteopenia. Large superior patellar spur. Moderate arthrosis of the medial compartment. Stable moderate to marked arthrosis of the lateral compartment with posttraumatic changes of the lateral tibial plateau. Bony fusion at the proximal tibiofibular joint, unchanged. Moderate arthrosis of the patellofemoral compartment. Small joint effusion with multiple small intra-articular osteochondral bodies, unchanged from prior study. Marked vascular calcification. RAD/Knee 3 Views IMPRESSION: Stable osteopenia, superior patellar spur, tricompartmental arthrosis, posttraumatic changes to the lateral femorotibial compartment, especially the lateral tibial plateau and joint effusion with multiple intra-articular osteochondral bodies.. Electronically Signed: Kapil Houser, at 11:47 EST ,
[2022-05-26 12:23] LABS: Absolute Neutrophil Count 6.2 X10^3/uL (2.0-7.7); Basophil# 0.04 X10^3/uL; Basophil% 0.4 % (0-1); Eosinophil# 0.19 X10^3/uL; Hematocrit 35.9 % (40-54); Hemoglobin 11.8 g/dL (13.0-16.5); Lymphocyte % 15.9 % (19-41); Mean Corp Hgb Conc 32.9 g/dL (32-36); Mean Corpuscular Hgb 29.8 pg (27.0-32.0); Mean Corpuscular Volume 90.7 fL (80-94); Mean Platelet Vol. 11.5 fl (6.2-12.0); Monocyte# 1.42 X10^3/uL; NRBC Flagged by Analyzer 0 % (0-5); Neutrophil # 6.24 X10^3/uL (2.7-7.7); Neutrophil % 66.1 % (47-70); Platelet Count 174 K/mm3 (150-450); RBC Distribution Width CV 13.5 % (11.6-14.6); RBC Distribution Width SD 45.1 fl (35.1-43.9); Red Blood Count 3.96 M/mm3 (4.6-6.2); White Blood Count 9.5 K/mm3 (4.4-11.0)
[2022-05-26 12:39] LABS: PTHIN 465.7 pg/mL (18.4-80.1)
[2022-05-26 12:45] LABS: ALB/GLOB Ratio 0.9 RATIO (0.9-2.4); AST(SGOT) 15 U/L (15-37); Alanine Aminotransfer ALT/SGPT 29 U/L (16-61); Alkaline Phosphatase 141 U/L (45-117); Anion Gap 11 (5-15); BUN 47 mg/dL (7-18); BUN/Creat Ratio 7.3 RATIO (10-20); Calcium,Total 8.7 mg/dL (8.5-10.1); Chloride 95 mmol/L (98-107); Cholesterol 121 mg/dL (200); Creatinine, Serum 6.46 mg/dL (0.70-1.30); EST Glomerular Filtration Rate 9 mL/min (>60); Est Glom Filt Rate - Afr Amer 11 mL/min (>60); Globulin 4.6 g/dL (2.2-4.2); Glucose 128 mg/dL (74-106); High Density Lipoprotein 32 mg/dL; Potassium 4.1 mmol/L (3.5-5.1); Protein, Total 8.6 g/dL (6.4-8.2); Sodium Level 138 mmol/L (136-145); Triglycerides 280 mg/dL; Very Low Density Lipoprotein 56 mg/dL (5-40)
[2022-05-26 12:46] LABS: Vitamin B12 379 pg/mL (211-911); Vitamin D,25 Hydroxy 26.8 ng/mL
[2022-05-26 13:46] LABS: Hemoglobin A1c 7.3 % (3.8-5.6)
[2022-05-29 16:10] LABS: Vitamin D 1,25-Dihydroxy 19.6 pg/mL (24.8-81.5)
== END | disposition home or self-care (01) ==
PROVIDERS: PCP Family Medicine; Referring Provider Family Medicine; Visit Provider Family Medicine
DX: M25.461 Effusion, right knee (principal); E11.69 Type 2 diabetes mellitus with other specified complication; N18.6 End stage renal disease; E21.3 Hyperparathyroidism, unspecified; M25.561 Pain in right knee; E55.9 Vitamin D deficiency, unspecified
CPT/HCPCS: 36415; 73562; 80053; 80061; 82306; 82607; 82652; 83036; 83970; 85025

== ENCOUNTER 2022-08-11 06:12 | Day surgery (SDC) | payer MEDICARE, MEDICAID, SELFPAY ==
[2022-08-11] VITALS (8 sets, daily range): BP systolic 99–159; BP diastolic 55–80; PULSE 67–83; RESP 14–17; TEMP 36.1–36.4; O2SAT 92–98; BMI 33.8
--- NOTE | 2022-08-11 07:22 | PCM.HP.BLA ---
History and Physical Date of Admission: 08/11/22 Intake Vital Signs ? 12/24/2209:05 07/13/2313:15 Height 5 ft 9 in 5 ft 9 in Weight: ? 224 lb 6 oz BMI ? 33.1 BP ? 153/85 H Blood Pressure Location ? Rt brachial Position ? Sitting Respiration ? 17 Pulse ? 91 Pulse Source ? Monitor Temp ? 98.4 F Temp Source ? Oral Pulse Oximetry (%) ? 96 Oxygen Delivery Method ? room air Intake Visit Reasons:?C-Scope last scope 2016 TC Chief Complaint: c-scope Is patient in pain?: No Allergies escitalopram [From Lexapro] Allergy (Verified 07/13/22 14:16) Unknownsertraline [From Zoloft] Allergy (Verified 07/13/22 14:16) Unknownlisinopril Adverse Reaction (Severe, Verified 07/13/22 14:16) Cough Medications nitroglycerin 0.4 mg sublingual tablet 0.4 mg sublingual Q5M PRN Chest Pain 06/30/15 [History Confirmed 07/13/22] aspirin 81 mg tablet,delayed release 81 mg PO DAILY HEART HEALTH ##0 07/09/18 [Rx Confirmed 07/13/22] atorvastatin 80 mg tablet 80 mg PO QHS #90 tabs 03/25/21 [Rx Confirmed 07/13/22] ranolazine 500 mg tablet,extended release,12 hr (Ranexa) 500 mg PO BID #60 tabs 03/25/21 [Rx Confirmed 07/13/22] ondansetron 4 mg disintegrating tablet 4 mg PO Q8H PRN PRN Nausea #10 tabs 04/06/21 [Rx Confirmed 07/13/22] tamsulosin 0.4 mg capsule (Flomax) 0.4 mg PO DAILY #30 caps 04/20/21 [Rx Confirmed 07/10/22] isosorbide dinitrate 10 mg tablet 10 mg PO TID #90 tabs 04/28/21 [Rx Confirmed 07/13/22] amlodipine 10 mg tablet 10 mg PO DAILY BP 06/30/21 [History Confirmed 07/13/22] calcium acetate 667 mg tablet 667 mg PO TID 06/30/21 [History Confirmed 07/13/22] carvedilol 12.5 mg tablet 12.5 mg PO BID@0900,2100 HEART 06/30/21 [History Confirmed 07/13/22] ergocalciferol (vitamin D2) 25,000 unit capsule 50,000 unit PO MO 06/30/21 [History Confirmed 07/13/22] hydralazine 100 mg tablet 50 mg PO BID 06/30/21 [History Confirmed 07/10/22] insulin lispro 100 unit/mL subcutaneous pen See Protocol subcut TID 06/30/21 [History Confirmed 07/13/22] pantoprazole 40 mg tablet,delayed release (Protonix) 40 mg PO DAILY #30 tabs 07/01/21 [Rx Confirmed 07/10/22] omega 8-ibu-hix-fish oil 60 mg-90 mg-500 mg capsule (Fish Oil) 1 cap PO BID 06/05/22 [History Confirmed 07/13/22] insulin glargine 100 unit/mL (3 mL) subcutaneous pen (Lantus Solostar U-100 Insulin) 14 unit subcut QAM 07/13/22 [History Confirmed 07/13/22] ranolazine 500 mg tablet,extended release,12 hr 500 mg PO BID 07/13/22 [History Confirmed 07/13/22] PFSH Medical History? (HFpEF) heart failure with preserved ejection fraction Ambulates with cane Anemia Atherosclerotic heart disease of [place] coronary artery without angina pectoris CAD (coronary artery disease) Cardiology follow-up encounter CHF exacerbation Chronic anemia Chronic cough Chronic kidney disease (CKD) Chronic pain CKD stage 4 due to type 2 diabetes mellitus CKD stage 5 due to type 2 diabetes mellitus Debility Depression Depression Diabetes Diabetes mellitus type 2, insulin dependent Dialysis patient DVT (deep venous thrombosis) DVT of lower extremity (deep venous thrombosis) (09/2018) Dyspnea on minimal exertion ESRD (end stage renal disease) on dialysis Essential (primary) hypertension Former smoker Gastric reflux Hemodialysis access site with arteriovenous graft High cholesterol History of echocardiogram History of edema History of meniscal tear History of renal disease History of stress test Hyperlipidemia Hypertension Insulin dependent diabetes mellitus Iron deficiency anemia Iron deficiency anemia Kidney disease Nephrotic syndrome Obesity (BMI 30.0-34.9) Old inferior wall myocardial infarction Osteoarthritis of left knee Problem with dialysis access Scarlet fever Shortness of breath Sleep apnea Tear of lateral meniscus of left knee Tear of medial meniscus of left knee TIA (transient ischemic attack) (09/19/18) Type 2 diabetes mellitus Vitreous hemorrhage, bilateral Surgical History? H/O abdominal surgery History of arteriovenostomy for renal dialysis (~01/2021) History of cardiac catheterization History of coronary artery stent placement (06/17/15) Hx of hernia repair Family History? Father?? blood clotSister CVA (cerebral vascular accident)Mother?? Diabetes Social History? household members:? friend(s) number of children:? 2 current occupational status:? retired Smoking Status:? Former smoker alcohol intake:? current alcohol intake frequency: a few times a week Alcohol type: beer substance use type:? does not use caffeine:? Yes Type: coffee Number of servings: 3 what type of physical activity do you participate in:? none seatbelt use:? always do you feel safe at home:? Yes additional social history:? estranged from children HPI HPI HPI: Patient is a 66-year-old male here for colonoscopy.? He had his last screening colonoscopy in 2017 and had a poor prep with tortuous colon but never followed up for repeat screening.? Patient is on a waiting list for kidney transplant and needs colonoscopy prior to his transplant as well.? He denies any abdominal pain or blood in the stool.? No family history of colon cancer. ROS General General: Yes fatigue; No weight change, appetite, colon cancer, breast cancer or weakness HEENT HEENT: Yes difficulty swallowing and eye surgery; No eye injury, swollen glands or hoarseness Endo Endocrine: Yes diabetes mellitus; No thyroid disease, thyroid cancer, Hair loss, heat intolerance or cold intolerance Skin Skin: No rash or changing moles Musc Musculoskeletal: Yes arthritis; No back problems, rheumatoid arthritis, gout or joint pain Cardio Cardiovascular: Yes high blood pressure, heart attack and heart stent; No murmur, pacemaker, heart disease, atrial fibrillation, palpitations, shortness of breat with exertion or chest pain Psych Psychiatric: No depression, anxiety or hearing voices Resp Respiratory: No shortness of breath, No sleep apnea, Yes cough, No COPD, No asthma, No emphysema and No wheezing Gastro Gastrointestinal: No abdominal pain, No nausea or vomiting, Yes diarrhea, Yes constipation, No blood in stool, Yes acid reflux, No hemorrhoids, No ulcers, No gallbladder problem and No black,tarry stools [place] Hematologic: No blood thinners, No blood disorders, No bleeding, No anemia and No blood clots Neuro Neurologic: No system reviewed and no additional complaints, except as documented, No as per HPI, No abnormal gait, No abnormal hearing, No abnormal movements, No abnormal speech, No behavioral changes, No burning sensations, No confusion, No convulsions, No disequilibrium, No dizziness, No localized weakness, No frequent falls, No headache(s), No lack of coordination, No loss of vision, No memory loss, Yes numbness, No other visual disturbances, No radicular pain, No restless legs, No sensory deficit, No syncope, Yes tingling, No tremor(s), No weakness and No other Exam Const General: cooperative Orientation: alert and oriented x3 HENMT Head: normal to inspection Neck Neck: normal visual inspection and full ROM Chest Chest palpation & inspection: normal inspection of the chest Resp Effort & Inspection: normal respiratory effort Auscultation: clear to auscultation bilaterally Cardio Rate: regular rate Rhythm: regular rhythm GI Inspection: non-distended Palpation: soft and nontender Skin General: no rashes or lesions noted Neuro General: patient alert and patient oriented x3 Extrem General: full ROM Psych Appearance: grossly normal Mental Status: mental status grossly normal Assessment and Plan Assessment and Plan (1) Screen for colon cancer: ?Status:?Acute ?Plan: The patient is awaiting kidney transplant and is here for colonoscopy for screening prior to this.? The patient denies any abdominal pain or blood in the stool. I explained endoscopy in detail to the patient.? I explained the risks including but not limited to stroke or heart attack with anesthesia, perforation of the GI tract, bleeding, infection.? I explained that any of these could necessitate further emergency surgery.? The patient understands and all questions were answered sufficiently.? The patient wishes to proceed with procedure. I will give him a extra bowel prep for the day before the bowel prep to ensure that he does not have any adequate prep.? I have also recommend that he only take half of his dose of Lantus the night prior to the procedure. Charles Linton MD Pager: [facility] [address] [place] [address], [address] [place] [address] Office: I have examined the patient and the H&P has been reviewed. There are no clinical changes since date of exam.
[2022-08-11 07:25] LABS: Bedside Glucose 170 mg/dL (74-106)
--- NOTE | 2022-08-11 07:30 | COLBX_PTH ---
PATIENT: BRI HERNANDEZ LOC: EN U#:[id number] AGE/SX: 66/M ROOM: RE08/11/[address]: Dr. Charles Linton MD : 1955 BED: DIS: 08/11/2022 SPEC #: [id number] RECD: 08/11/22 10:05 STATUS: SANTIAGO VELASCO #: [id number] HIRA: 08/11/22 07:[address]: Charles Linton DEPT: SURGICAL PATHOLOGY RECD BY: Jeff Aranda ENTERED: 08/11/22 11:41 SP TYPE: COLON BX OTHR DR: Dr. Gene Miller MD Tissues: A - Cecum, NOS B - Ascending colon C - Transverse colon Procedures: Surgery Specimen Level IV HEADER OPERATION: Colonoscopy (MAC), polypectomy PRE-OP DIAGNOSIS: Screening TISSUE SUBMITTED: A ? Cecum polyps x2, B ? Ascending polyp, C ? Transverse polyp MICROSCOPIC DIAGNOSIS A. Cecum polyps x2, polypectomy: Fragments of tubular adenoma. B. Ascending colon polyp, polypectomy: A fragment of colonic mucosa with minimal adenomatous changes. C. Transverse colon polyp, polypectomy: Fragments of tubular adenoma. MARILYN:raymond 08/14/2022 MICROSCOPIC DESCRIPTION Slides are reviewed. GROSS DESCRIPTION A - Received in fixative is one container labeled with the patient's name and designated cecum polyp. The specimen consists of two pieces of daly-pink polyp measuring 0.5 x 0.4 x 0.3 cm and 0.3 x 0.3 x 0.2 cm. Multiple fragments of fecal material are also noted. The entire specimen is submitted in one cassette. B -Received in fixative is one container labeled with the patient's name and designated ascending polyp. The specimen consists of one irregular fragment of light daly soft tissue that measures 0.3 x 0.2 x 0.1 cm. The specimen is totally submitted in one cassette. C - Received in fixative is one container labeled with the patient's name and designated transverse polyp. The specimen consists of multiple irregular fragments of light daly soft tissue that in aggregate measure 0.8 x 0.6 x 0.1 cm. The specimen is totally submitted in one cassette. / MARILYN:raymond 08/11/2022 TC:1 CPT: 92042 x3
--- NOTE | 2022-08-11 08:07 | OP.CCLET_ITS ---
08/11/2022 Gene Miller [address] [place] [address] Re : Colonoscopy procedure for Estuardo Landrum Dear Dr. Miller This procedure was performed on Thursday, August 11, 2022. My impressions and recommendations are as follows: Impressions : - Four small polyps in the transverse colon, in the ascending colon and in the cecum, removed with a hot snare. Resected and retrieved. - The examination was otherwise normal on direct and retroflexion views. Recommendations : - Discharge patient to home. - Resume previous diet. - Continue present medications. - Await pathology results. - Repeat colonoscopy in 3 years for surveillance based on pathology results. My findings are described in the full procedure note, which is enclosed. If I can be of further assistance, please feel free to contact me at Doctor phone number(s): , Work: . Sincerely, Charles Linton MD 08/11/2022 8:06:16 AM This report has been signed electronically.
--- NOTE | 2022-08-11 08:07 | OP.COLON_ITS ---
Patient Name: Estuardo Landrum Procedure Date: 08/11/2022 6:29 AM Date of : 1955 Age: 66 Procedure: Colonoscopy Indications: Screening for colorectal malignant neoplasm Providers: Charles Linton MD Referring MD: Charles Linton MD Medicines: Monitored Anesthesia Care Patient Profile: This is a 66 year old male. Refer to note in patient chart for documentation of history and physical. Last Colonoscopy: none. The patient's first colonoscopy is today. Complications: No immediate complications. Procedure: Pre-Anesthesia Assessment: - Prior to the procedure, a History and Physical was performed, and patient medications and allergies were reviewed. The patient's tolerance of previous anesthesia was also reviewed. The risks and benefits of the procedure and the sedation options and risks were discussed with the patient. All questions were answered, and informed consent was obtained. Prior Anticoagulants: The patient has taken no previous anticoagulant or antiplatelet agents. After reviewing the risks and benefits, the patient was deemed in satisfactory condition to undergo the procedure. After I obtained informed consent, the scope was passed under direct vision. Throughout the procedure, the patient's blood pressure, pulse, and oxygen saturations were monitored continuously. The colonoscope was introduced through the anus and advanced to the cecum, identified by appendiceal orifice and ileocecal valve. The colonoscopy was performed without difficulty. The patient tolerated the procedure well. The quality of the bowel preparation was good. Scope In: 7:34:35 AM Scope Withdrawal Time 0 hours 11 minutes 2 seconds Scope Out: 8:00:44 AM Total Procedure Duration Time 0 hours 26 minutes 9 seconds Findings: Four polyps were found in the transverse colon, ascending colon and cecum. The polyps were small in size. These polyps were removed with a hot snare. Resection and retrieval were complete. The exam was otherwise without abnormality on direct and retroflexion views. Impression: - Four small polyps in the transverse colon, in the ascending colon and in the cecum, removed with a hot snare. Resected and retrieved. - The examination was otherwise normal on direct and retroflexion views. Recommendation: - Discharge patient to home. - Resume previous diet. - Continue present medications. - Await pathology results. - Repeat colonoscopy in 3 years for surveillance based on pathology results. Procedure Code(s): --- Professional --- 12593, 33, Colonoscopy, flexible; with removal of tumor(s), polyp(s), or other lesion(s) by snare technique Diagnosis Code(s): --- Professional --- Z12.11, Encounter for screening for malignant neoplasm of colon D12.3, Benign neoplasm of transverse colon (hepatic flexure or splenic flexure) D12.2, Benign neoplasm of ascending colon D12.0, Benign neoplasm of cecum CPT copyright 2017 [employer]. All rights reserved. The codes documented in this report are preliminary and upon it applications developer review may be revised to meet current compliance requirements. Charles Linton MD 08/11/2022 8:06:16 AM This report has been signed electronically. Number of Addenda: 0 Note Initiated On: 08/11/2022 6:29 AM
== END 2022-08-11 09:12 | disposition home or self-care (01) ==
LOC: EN 06:14 → AC 06:16
PROVIDERS: PCP Family Medicine; Referring Provider Family Medicine; Visit Provider Surgery
PROC: 0DJD8ZZ Inspection of Lower Intestinal Tract, Via Natural or Artificial Opening Endoscopic (ICD-10-PCS; CPT 45378; principal; 2022-08-11 07:25)
DX: Z12.11 Encounter for screening for malignant neoplasm of colon (principal); I50.30 Unspecified diastolic (congestive) heart failure; I13.0 Hypertensive heart and chronic kidney disease with heart failure and stage 1 through stage 4 chronic kidney disease, or unspecified chronic kidney disease; E11.22 Type 2 diabetes mellitus with diabetic chronic kidney disease; N18.4 Chronic kidney disease, stage 4 (severe); Z87.891 Personal history of nicotine dependence; I25.10 Atherosclerotic heart disease of native coronary artery without angina pectoris; E78.5 Hyperlipidemia, unspecified; D12.0 Benign neoplasm of cecum; D12.3 Benign neoplasm of transverse colon; Z79.82 Long term (current) use of aspirin
CPT/HCPCS: 45385; 82962; 88305; J7040; J2405

== ENCOUNTER → 2022-11-29 | Outpatient (CLI) | payer MEDICARE, MEDICAID, SELFPAY ==
[2022-11-29 10:13] LABS: Absolute Lymphocyte Count 1.76 X10^3/uL (0.83-4.51); Absolute Neutrophil Count 4.4 X10^3/uL (2.0-7.7); Basophil# 0.04 X10^3/uL; Basophil% 0.5 % (0-1); Eosinophil# 0.17 X10^3/uL; Eosinophils% 2.3 % (0-5); Hematocrit 33.2 % (40-54); Hemoglobin 11.1 g/dL (13.0-16.5); Lymphocyte # 1.76 X10^3/ul (0.83-4.51); Lymphocyte % 23.8 % (19-41); Mean Corp Hgb Conc 33.4 g/dL (32-36); Mean Corpuscular Volume 92.7 fL (80-94); Mean Platelet Vol. 11.7 fl (6.2-12.0); Monocyte# 1.05 X10^3/uL; Monocyte% 14.2 % (0-10); NRBC Flagged by Analyzer 0 % (0-5); Neutrophil # 4.36 X10^3/uL (2.7-7.7); Neutrophil % 58.8 % (47-70); Platelet Count 158 K/mm3 (150-450); RBC Distribution Width CV 13.2 % (11.6-14.6); RBC Distribution Width SD 44.5 fl (35.1-43.9); Red Blood Count 3.58 M/mm3 (4.6-6.2); White Blood Count 7.4 K/mm3 (4.4-11.0)
[2022-11-29 10:31] LABS: Hemoglobin A1c 8.1 % (3.8-5.6)
[2022-11-29 10:41] LABS: Vitamin B12 449 pg/mL (211-911); Vitamin D,25 Hydroxy 34.4 ng/mL
[2022-11-29 10:54] LABS: ALB/GLOB Ratio 0.9 RATIO (0.9-2.4); AST(SGOT) 12 U/L (15-37); Alanine Aminotransfer ALT/SGPT 19 U/L (16-61); Albumin, Serum 3.7 g/dL (3.2-5.0); Alkaline Phosphatase 193 U/L (45-117); Anion Gap 11 (5-15); BUN 59 mg/dL (7-18); BUN/Creat Ratio 7.4 RATIO (10-20); Calcium,Total 8.8 mg/dL (8.5-10.1); Chloride 93 mmol/L (98-107); Cholesterol 113 mg/dL (200); Creatinine, Serum 7.98 mg/dL (0.70-1.30); EST Glomerular Filtration Rate 7 mL/min (>60); Est Glom Filt Rate - Afr Amer 9 mL/min (>60); Globulin 4.3 g/dL (2.2-4.2); Glucose 245 mg/dL (74-106); High Density Lipoprotein 27 mg/dL; Potassium 3.9 mmol/L (3.5-5.1); Sodium Level 132 mmol/L (136-145); Triglycerides 359 mg/dL; Very Low Density Lipoprotein 72 mg/dL (5-40)
[2022-12-04 06:07] LABS: VITAMIN B6 3.7 ug/L (3.4-65.2); Vitamin B1, Thiamine 131.2 nmol/L (66.5-200.0)
== END | disposition home or self-care (01) ==
LOC: MFPLAB 08:55
PROVIDERS: PCP Family Medicine; Visit Provider Family Medicine
DX: E53.9 Vitamin B deficiency, unspecified (principal); E11.9 Type 2 diabetes mellitus without complications; E55.9 Vitamin D deficiency, unspecified
CPT/HCPCS: 36415; 80053; 80061; 82306; 82607; 83036; 84207; 84425; 85025

== ENCOUNTER → 2023-10-03 | Outpatient (CLI) | payer MEDICARE, MEDICAID, SELFPAY ==
[2023-10-03 12:02] LABS: Bacteria 0 SEEN /hpf (None Seen); Mucous, Urine 0 SEEN /hpf (<or=2+); Squamous Epithelial Cells - UA 0 SEEN /hpf (0-5); White Blood Cells 0 SEEN /hpf (0-5)
[2023-10-03 15:12] LABS: Color, Urine Yellow (Yellow); Glucose, Dipstick 250 mg/dl (Normal); Ketone-Dipstick Negative (Negative); Leukocyte Esterase-Dipstick Negative /ul (Negative); Nitrite-Dipstick Negative (Negative); Occult Blood-Urine 25 /ul (Negative); Protein-Dipstick 500 mg/dl (Negative); Specific Gravity, Urine 1.015 (1.002-1.030); Urine Bilirubin Dipstick Negative (Negative); Urine Clarity Clear (Clear); Urine Urobilinogen Normal (Normal)
[2023-10-03 15:17] LABS: Absolute Lymphocyte Count 1.11 X10^3/uL (0.83-4.51); Absolute Neutrophil Count 6.3 X10^3/uL (2.0-7.7); Basophil# 0.06 X10^3/uL; Basophil% 0.7 % (0-1); Eosinophil# 0.22 X10^3/uL; Eosinophils% 2.5 % (0-5); Hematocrit 37.4 % (40-54); Hemoglobin 12.2 g/dL (13.0-16.5); Lymphocyte # 1.11 X10^3/ul (0.83-4.51); Lymphocyte % 12.7 % (19-41); Mean Corp Hgb Conc 32.6 g/dL (32-36); Mean Corpuscular Hgb 30.3 pg (27.0-32.0); Mean Platelet Vol. 11.4 fl (6.2-12.0); Monocyte% 11.4 % (0-10); NRBC Flagged by Analyzer 0 % (0-5); Neutrophil # 6.33 X10^3/uL (2.7-7.7); Neutrophil % 72.4 % (47-70); Platelet Count 155 K/mm3 (150-450); RBC Distribution Width CV 13.4 % (11.6-14.6); RBC Distribution Width SD 45.2 fl (35.1-43.9); Red Blood Count 4.02 M/mm3 (4.6-6.2); White Blood Count 8.8 K/mm3 (4.4-11.0)
[2023-10-03 15:27] LABS: Red Blood Cells-Urine 0-5 SEEN /hpf (0-5)
[2023-10-03 15:30] LABS: Vitamin B12 828 pg/mL (211-911); Vitamin D,25 Hydroxy 29.1 ng/mL
[2023-10-03 15:50] LABS: PTHIN 442.8 pg/mL (18.4-80.1)
[2023-10-03 15:53] LABS: Microalbumin:Creatinine Ratio 4024.9 mg/g CRE (<30 mg/g CRE)
[2023-10-03 16:02] LABS: ALB/GLOB Ratio 0.8 RATIO (0.9-2.4); AST(SGOT) 19 U/L (15-37); Alanine Aminotransfer ALT/SGPT 24 U/L (16-61); Albumin, Serum 3.6 g/dL (3.2-5.0); Alkaline Phosphatase 126 U/L (45-117); Anion Gap 8 (5-15); BUN 60 mg/dL (7-18); BUN/Creat Ratio 8.1 RATIO (10-20); Chloride 100 mmol/L (98-107); Cholesterol 97 mg/dL (200); Creatinine, Serum 7.43 mg/dL (0.70-1.30); EST Glomerular Filtration Rate 8 mL/min (>60); Est Glom Filt Rate - Afr Amer 9 mL/min (>60); Globulin 4.3 g/dL (2.2-4.2); Glucose 207 mg/dL (74-106); High Density Lipoprotein 29 mg/dL; Phosphorus 3.2 mg/dL (2.5-4.9); Potassium 4.6 mmol/L (3.5-5.1); Protein, Total 7.9 g/dL (6.4-8.2); Sodium Level 135 mmol/L (136-145); Thyroid Stim Hormone (TSH) 1.55 uIU/mL (0.358-3.74); Triglycerides 212 mg/dL; Very Low Density Lipoprotein 42 mg/dL (5-40)
[2023-10-10 16:10] LABS: Vitamin B1, Thiamine 145.5 nmol/L (66.5-200.0)
== END | disposition home or self-care (01) ==
LOC: MFPLAB 11:59
PROVIDERS: PCP Family Medicine; Visit Provider Family Medicine
DX: E11.59 Type 2 diabetes mellitus with other circulatory complications (principal); E53.9 Vitamin B deficiency, unspecified; E21.3 Hyperparathyroidism, unspecified; E55.9 Vitamin D deficiency, unspecified
CPT/HCPCS: 36415; 80053; 80061; 81001; 82043; 82306; 82570; 82607; 83036; 83970; 84100; 84425; 84443; 85025

== ENCOUNTER → 2024-05-07 | Outpatient (CLI) | payer MEDICARE, MEDICAID, SELFPAY ==
[2024-05-07 15:39] LABS: Absolute Lymphocyte Count 0.46 X10^3/uL (0.83-4.51); Absolute Neutrophil Count 4.6 X10^3/uL (2.0-7.7); Basophil# 0.04 X10^3/uL; Basophil% 0.6 % (0-1); Eosinophil# 0.07 X10^3/uL; Eosinophils% 1.1 % (0-5); Hematocrit 35.8 % (40-54); Hemoglobin 11.7 g/dL (13.0-16.5); Lymphocyte # 0.46 X10^3/ul (0.83-4.51); Lymphocyte % 7.4 % (19-41); Mean Corp Hgb Conc 32.7 g/dL (32-36); Mean Corpuscular Hgb 29.6 pg (27.0-32.0); Mean Corpuscular Volume 90.6 fL (80-94); Mean Platelet Vol. 11.7 fl (6.2-12.0); Monocyte% 14.5 % (0-10); NRBC Flagged by Analyzer 0 % (0-5); Neutrophil # 4.58 X10^3/uL (2.7-7.7); Neutrophil % 73.7 % (47-70); POSITIVE DIFFERENTIAL YES; Platelet Count 147 K/mm3 (150-450); RBC Distribution Width CV 16.3 % (11.6-14.6); RBC Distribution Width SD 54.9 fl (35.1-43.9); Red Blood Count 3.95 M/mm3 (4.6-6.2); White Blood Count 6.2 K/mm3 (4.4-11.0)
[2024-05-07 16:09] LABS: Hemoglobin A1c 7.9 % (3.8-5.6)
[2024-05-07 16:11] LABS: AST(SGOT) 19 U/L (15-37); Alanine Aminotransfer ALT/SGPT 28 U/L (16-61); Albumin, Serum 3.5 g/dL (3.2-5.0); Alkaline Phosphatase 183 U/L (45-117); Anion Gap 6 (5-15); BUN 42 mg/dL (7-18); BUN/Creat Ratio 23.6 RATIO (10-20); Calcium,Total 8.9 mg/dL (8.5-10.1); Chloride 107 mmol/L (98-107); Cholesterol 106 mg/dL (200); Creatinine, Serum 1.78 mg/dL (0.70-1.30); EST Glomerular Filtration Rate 41 mL/min (>60); Est Glom Filt Rate - Afr Amer 49 mL/min (>60); Globulin 3.5 g/dL (2.2-4.2); Glucose 329 mg/dL (74-106); High Density Lipoprotein 38 mg/dL; Potassium 3.9 mmol/L (3.5-5.1); Sodium Level 137 mmol/L (136-145); Triglycerides 225 mg/dL; Very Low Density Lipoprotein 45 mg/dL (5-40)
[2024-05-08 07:48] LABS: Vitamin B12 381 pg/mL (211-911); Vitamin D,25 Hydroxy 29.4 ng/mL
[2024-05-18 16:07] LABS: VITAMIN B6 2.7 ug/L (3.4-65.2); Vitamin B1, Thiamine 133.3 nmol/L (66.5-200.0)
== END | disposition home or self-care (01) ==
LOC: MFPLAB 11:41
PROVIDERS: PCP Family Medicine; Referring Provider Family Medicine; Visit Provider Family Medicine
DX: E11.69 Type 2 diabetes mellitus with other specified complication (principal); E55.9 Vitamin D deficiency, unspecified; I25.10 Atherosclerotic heart disease of native coronary artery without angina pectoris
CPT/HCPCS: 36415; 80053; 80061; 82306; 82607; 83036; 84207; 84425; 85025